=== PATIENT | male | born 1945 | race Caucasian/White ===

== ENCOUNTER 2021-06-23 20:25 | Inpatient (IN) | payer OTHER, SELFPAY ==
--- NOTE | ~2021-06-23 | XR_ITS ---
EXAMINATION: XR hip RT min 2V DATE: 06/25/2021 15:52 INDICATION: Right bipolar hip TECHNIQUE: Two views of right hip were obtained. COMPARISON: 06/23/2021 FINDINGS: There are changes of interval right hip arthroplasty in anatomic alignment. No fracture is identified. Surgical clips are noted in the right pelvis. IMPRESSION: 1. Changes of interval right hip arthroplasty. Reviewed, dictated and finalized at location F. CTOR FOOD AND BEVERAGE
--- NOTE | ~2021-06-23 | XR_ITS ---
EXAMINATION: XR hip RT 2V w AP pelvis INDICATION: Right hip pain after fall TECHNIQUE: AP view of the pelvis and two views of the right hip are obtained. COMPARISON: 04/20/2018 FINDINGS: There is an acute, traumatic, closed, subcapital fracture of right femoral neck. There are interval surgical changes of the left proximal femur. No additional acute fracture is identified. The re are surgical clips in the pelvis. Severe lumbar spondylosis noted. IMPRESSION: 1. Acute subcapital fracture of the right femoral neck. Reviewed, dictated and finalized at location F. P STRIPPER HAND
--- NOTE | ~2021-06-23 | XR_ITS ---
EXAMINATION: XR chest 1V INDICATION: Pain after fall TECHNIQUE: AP view the chest is obtained. COMPARISON: 05/02/2018 FINDINGS: The lungs are free of acute opacities. There is no pleural effusion or pneumothorax. The ca rdiomediastinal silhouette is normal. Surgical clips project over the left axilla. IMPRESSION: 1. No acute cardiopulmonary abnormality. Reviewed, dictated and finalized at location F. SUGAR OPERATOR HEAD
--- NOTE | ~2021-06-23 | CT_ITS ---
EXAMINATION: CT brain wo con INDICATION: Head injury COMPARISON: None TECHNIQUE: Standard unenhanced head CT. The dose-length product (DLP) was 605.33 mGy-cm. The mA was a djusted according to patient size. Iterative reconstruction technique was employed. FINDINGS: There is no acute intraparenchymal hemorrhage. No evidence of mass lesion. No evidence of a cute infarction. There is mild periventricular and subcortical hypodensity probably related to small vessel ischemic disease. There is mild prominence of the sulci and ventricles related to cerebral atr ophy. Intracranial calcified cerebral atherosclerosis is noted. There are no extra-axial collections. There is no mass effect or midline shift. The orbits and soft tissues are unremarkable. There is mod erate mucosal thickening of the paranasal sinuses. IMPRESSION: 1. No acute intracranial abnormality. 2. Age related findings. 3. Sinus disease. Reviewed, dictated and finalized at location F. R ENERGY SPECIALIST
[2021-06-23 20:21] VITALS: BP 151/86; PULSE 65; RESP 17; TEMP 36.8; O2SAT 95
--- NOTE | 2021-06-23 20:32 | PC.NURSE ---
Pt to XRAY via stretcher at this time.
--- NOTE | 2021-06-23 20:52 | ECG_ITS ---
Measurements Intervals Festus Rate: 61 P: 32 CO: 180 QRS: 8 QRSD: 97 T: 46 QT: 432 QTc: 436 Interpretive Statements SINUS RHYTHM INCOMPLETE RIGHT BUNDLE BRANCH BLOCK LOW QRS VOLTAGE IN PRECORDIAL LEADS BORDERLINE T WAVE ABNORMALITY- ANTERIOR LEADS BASELINE ARTIFACT- I, II, III, AVR, AVL, AVF, V1, V4-V6 BORDERLINE ECG Electronically Signed On 06-24-2021 8:43:50 MAPPING ANALYST by Dani Suarez D.O.
[2021-06-23 21:07] VITALS: BP 123/66; PULSE 63; RESP 18; O2SAT 93
[2021-06-23] MEDS: ONDANSETRON INJ 4 MG/2 ML VIAL IV PUSH (21:08)
[2021-06-23] MEDS: MORPHINE SULFATE (*CRX) 4 MG/ML INJ IV PUSH (21:08)
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
[2021-06-23 21:15] VITALS: O2SAT 86
--- NOTE | 2021-06-23 21:15 | PC.NURSE ---
Pt O2 decreased to 86% following Morphine IVP, placed on 2 L NC O2 and increased to 93%.
[2021-06-23 21:28] LABS: Basophils Percent Auto 0.4 % (0.2-1.2); Eosinophils Absolute Auto 0.4 K/mm3 (0-0.3); Eosinophils Percent Auto 3.9 % (0-4.4); Hematocrit 43.6 % (42.0-52.0); Hemoglobin 14.3 g/dL (14.0-18.0); Immature Granulocyte Absolute 0.05 K/mm3 (0.00-0.031); Immature Granulocyte Percent A 0.5 % (0-0.5); Immature Platelet Fraction Pct 8.1 % (0.9-11.2); Lymphocytes Absolute Auto 1.15 K/mm3 (0.9-3.2); Lymphocytes Percent Auto 12.2 % (18.3-44.2); Mean Corpuscular HGB Conc 32.8 g/dl (32-36); Mean Corpuscular Hemoglobin 31.1 pg (26-34); Mean Corpuscular Volume 94.8 fl (80-100); Mean Platelet Volume 11.3 fl (7.4-10.4); Monocytes Absolute Auto 0.9 K/mm3 (0.1-0.6); Monocytes Percent Auto 9.2 % (2.6-8.5); Neutrophils Absolute Auto 6.9 K/mm3 (1.3-6.7); Neutrophils Percent Auto 73.8 % (45.5-73.1); Platelet Count Result 100 k/mm3 (150-375); Red Cell Distribution Width 13.5 % (11.5-14.5); White Blood Count 9.4 K/mm3 (4.5-10.0)
[2021-06-23 21:37] LABS: INR 1.2
[2021-06-23 21:38] LABS: Partial Thromboplastin Time 30.3 SECONDS (22.3-36.8)
[2021-06-23 21:42] LABS: Alanine Aminotransferase 30 U/L (4-50); Albumin Level 3.7 g/dL (3.5-5.1); Alkaline Phosphatase 82 U/L (38-126); Anion Gap 8 mmol/L (8-16); Aspartate Amino Transferase 41 U/L (17-59); Bilirubin,Total 0.6 mg/dL (0.2-1.3); Blood Urea Nitrogen 22 mg/dL (9-20); Calcium 8.6 mg/dL (8.4-10.2); Carbon Dioxide 24 mmol/L (22-30); Chloride 101 mmol/L (98-107); Estimated CRCL calculation 63 ml/min; Estimated Glomerular Filt Rate > 60; Glucose 116 mg/dL (65-110); Potassium 4.3 mmol/L (3.4-5.0); Sodium 133 mmol/L (137-145)
--- NOTE | 2021-06-23 22:03 | PC.NURSE ---
Pt to CT scan via stretcher at this time.
[2021-06-23 22:20] LABS: Add Urine Microscopic? YES; Appearance Urine Cloudy (Clear); Bilirubin Urine Negative (Negative); Blood Urine Negative (Negative); Color Urine Yellow (Yellow); Glucose Urine UA Negative (Negative); Hyaline Casts Urine 15-19 /lpf; Ketones Urine Negative (Negative); Leukocyte Esterase Ur Negative LEU/UL (Negative); Mucus Urine Moderate /lpf; Nitrate Urine Negative (Negative); Protein Urine Negative (Negative); Specific Grav Ur 1.026 (1.001-1.035); Squamous Epithelial Cell Urine Many /hpf (Few)
[2021-06-23 22:58] VITALS: PULSE 62; RESP 15; O2SAT 95
[2021-06-23 23:08] LABS: EDCOVIDSCREEN Negative (Negative)
--- NOTE | 2021-06-23 23:35 | PC.NURSE ---
Records [facility] to [facility] per [facility].
[2021-06-23 23:37] VITALS: BP 105/64; PULSE 67; RESP 15; O2SAT 93
[2021-06-24] VITALS (8 sets, daily range): BP systolic 106–141; BP diastolic 49–68; PULSE 64–100; RESP 14–20; TEMP 36.1–36.4; O2SAT 90–95; BMI 27.0
[2021-06-24] MEDS: HYDROmorphone HCL INJ (*CRX) 1 MG/ML SYR 0.5 MG IV PUSH ×3 (00:20→08:47)
[2021-06-24] MEDS: SODIUM CHLORIDE 0.9% IV 1,000 ML 125 ML IV CONT ×3 (01:32→19:05)
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
--- NOTE | 2021-06-24 04:45 | ADMGEN ---
This patient, Alex Fish, was admitted to Medical Room 346-01. Patient/family oriented to hospital policies and general routines including ID bracelet, bed and alarms, visiting hours, pain management, procedures, bathroom and other care routines, personal items, smoking policy, room service/diet, and visiting hours. Information on how to activate the Rapid Response Team has been discussed. Patient/Family are encouraged to report perceived risks to care and to ask questions if they do not understand what they are told or what they should do.
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
[2021-06-24] MEDS: KETOROLAC 15 MG/ML VIAL (*BKC) IV PUSH (12:55)
[2021-06-24] MEDS: HYDROcodone/acetaminophen (*CRX) 5-325 MG TABLET 1 TAB PO ×2 (14:27→21:22)
[2021-06-24] MEDS: AZELASTINE HCL NASAL 0.1% 137 MCG/SPR 30 ML BTL 2 SPRAY NASAL (17:55)
[2021-06-24] MEDS: HYDROmorphone HCL INJ (*CRX) 1 MG/ML SYR IV PUSH (18:02)
--- NOTE | 2021-06-24 19:10 | PM.CNOR ---
Assessment and Plan Additional Plan Right garden 4 femoral neck fx NPO after [place] will proceed with hemiarthroplasty Pt is aware of all risks, benefits and alternative treatments and wishes to proceed with surgery. History of Present Illness HPI Consult date: 06/24/21 Chief complaint: right closed subcapital femoral neck fracture Narrative: 76 yo with left BKA now s/p fall and right garden 4 femoral neck fx. [facility] Past Medical History Medical History (Updated 06/24/21 @ 04:26 by Reyes Costa MD) Cirrhosis Hepatitis C Surgical History Surgical History (Updated 06/23/21 @ 21:17 by Dee Burns MD) Hx of tonsillectomy Family History Family History (Updated 06/24/21 @ 05:01 by Erwin Arias RN) Father Diabetes mellitus Mother Family history of cardiovascular disease Sibling Family history of malignant neoplasm of urinary bladder Social History Social History (Updated 06/23/21 @ 21:17 by Dee Burns MD) Smoking packs per day: 1 Smoking cigarettes per day: 20.0 Smoking status: Former smoker Alcohol intake: never Alcohol use details: former heavy drinker but stopped years ago Substance use: never Spiritual care concerns: No Meds Home Medications and Allergies Home Medications Medication Instructions Recorded Confirmed Type Allergy Relief (fluticasone) 2 spray EACH NARE DAILY 06/24/21 06/24/21 History Arthritis Pain (diclofenac) 2 g QID 06/24/21 06/24/21 History aripiprazole 30 mg PO DAILY 06/24/21 06/24/21 History azelastine 2 spray INTRANASAL BID 06/24/21 06/24/21 History cholecalciferol (vitamin D3) 50 mcg PO DAILY 06/24/21 06/24/21 History docusate sodium 1 cap PO BID 06/24/21 06/24/21 History donepezil 10 mg PO HS 06/24/21 06/24/21 History escitalopram oxalate 20 mg PO DAILY 06/24/21 06/24/21 History furosemide 40 mg PO DAILY 06/24/21 06/24/21 History ipratropium bromide 1 spray EACH NARE TID PRN 06/24/21 06/24/21 History lactulose 30 ml PO BID 06/24/21 06/24/21 History loperamide 2 mg PO BID PRN 06/24/21 06/24/21 History melatonin 3 mg PO HS 06/24/21 06/24/21 History mirabegron 25 mg PO DAILY 06/24/21 06/24/21 History propranolol 60 mg PO DAILY 06/24/21 06/24/21 History spironolactone 50 mg PO DAILY 06/24/21 06/24/21 History Allergies Allergy/AdvReac Type Severity Reaction Status Date / Time Sulfa (Sulfonamide Allergy Unknown Verified 07/06/18 11:10 Antibiotics) Vital Signs Vital Signs - 24 hr 06/23/21 20:21 06/23/21 21:07 06/23/21 21:15 Temperature 36.8 C Pulse Rate 65 63 Respiratory Rate 17 18 Blood Pressure 151/86 H 123/66 Pulse Oximetry 95 93 86 L 06/23/21 22:58 06/23/21 23:37 06/24/21 00:20 Temperature Pulse Rate 62 67 67 Respiratory Rate 15 15 17 Blood Pressure 105/64 115/65 Pulse Oximetry 95 93 93 06/24/21 01:32 06/24/21 02:27 06/24/21 04:15 Temperature Pulse Rate 67 66 64 Respiratory Rate 14 17 15 Blood Pressure 106/66 110/63 115/68 Pulse Oximetry 91 90 95 06/24/21 14:50 06/24/21 15:01 Temperature 36.4 C Pulse Rate 75 Respiratory Rate 20 Blood Pressure 115/49 L Pulse Oximetry 91 92 Exam Extrem: Other: Right Hip no bruising noted thigh supple and min tender tender over gr troch. log roll painful NV intact distally Calves NT on right, BKA stump on left Results Labs Result Diagrams: 06/23/21 21:17 06/23/21 21:17 Labs: Abnormal lab results 06/23/21 06/23/21 06/23/21 Range/Units 21:17 21:17 21:17 Plt Count 100 L (150-375) k/mm3 MPV 11.3 H (7.4-10.4) fl Neut % (Auto) 73.8 H (45.5-73.1) % Lymph % (Auto) 12.2 L (18.3-44.2) % Zavala % (Auto) 9.2 H (2.6-8.5) % Z[place]ala # (Auto) 0.9 H (0.1-0.6) K/mm3 Eos # (Auto) 0.4 H (0-0.3) K/mm3 Abs Immat Gran (auto) 0.05 H (0.00-0.031) K/mm3 Absolute Neuts (auto) 6.9 H (1.3-6.7) K/mm3 PT 15.0 H (11.1-14.7) Seconds Sodium 133 L (137-145) mmol/L BUN 22 H
[2021-06-24] MEDS: MELATONIN 3 MG TABLET PO (21:19)
[2021-06-24] MEDS: DOCUSATE SODIUM 100 MG CAPSULE PO (21:20)
[2021-06-24] MEDS: DONEPEZIL HCL 10 MG TABLET PO (21:20)
[2021-06-25] VITALS (14 sets, daily range): BP systolic 111–151; BP diastolic 52–74; PULSE 67–87; RESP 14–20; TEMP 36.3–36.8; O2SAT 90–97
[2021-06-25] MEDS: HYDROmorphone HCL INJ (*CRX) 1 MG/ML SYR IV PUSH ×4 (00:52→21:39)
[2021-06-25] MEDS: SODIUM CHLORIDE 0.9% IV 1,000 ML 125 ML IV CONT ×2 (05:13→17:48)
[2021-06-25 06:39] LABS: Basophils Percent Auto 0.3 % (0.2-1.2); Eosinophils Absolute Auto 0.7 K/mm3 (0-0.3); Eosinophils Percent Auto 5.8 % (0-4.4); Hematocrit 44.2 % (42.0-52.0); Immature Granulocyte Absolute 0.05 K/mm3 (0.00-0.031); Immature Granulocyte Percent A 0.4 % (0-0.5); Immature Platelet Fraction Pct 7.1 % (0.9-11.2); Lymphocytes Absolute Auto 1.12 K/mm3 (0.9-3.2); Lymphocytes Percent Auto 9.6 % (18.3-44.2); Mean Corpuscular HGB Conc 31.7 g/dl (32-36); Mean Corpuscular Volume 97.8 fl (80-100); Mean Platelet Volume 11.4 fl (7.4-10.4); Monocytes Percent Auto 8.2 % (2.6-8.5); Neutrophils Absolute Auto 8.8 K/mm3 (1.3-6.7); Neutrophils Percent Auto 75.7 % (45.5-73.1); Platelet Count Result 75 k/mm3 (150-375); Red Blood Count 4.52 M/mm3 (4.6-6.20); Red Cell Distribution Width 13.7 % (11.5-14.5); White Blood Count 11.6 K/mm3 (4.5-10.0)
[2021-06-25 06:59] LABS: Alanine Aminotransferase 24 U/L (4-50); Albumin Level 3.5 g/dL (3.5-5.1); Alkaline Phosphatase 80 U/L (38-126); Anion Gap 8 mmol/L (8-16); Aspartate Amino Transferase 38 U/L (17-59); Bilirubin,Total 1.3 mg/dL (0.2-1.3); Blood Urea Nitrogen 23 mg/dL (9-20); Calcium 8.1 mg/dL (8.4-10.2); Carbon Dioxide 21 mmol/L (22-30); Chloride 104 mmol/L (98-107); Estimated CRCL calculation 63 ml/min; Estimated Glomerular Filt Rate > 60; Glucose 119 mg/dL (65-110); Potassium 4.5 mmol/L (3.4-5.0); Sodium 133 mmol/L (137-145)
[2021-06-25] MEDS: ESCITALOPRAM OXALATE 10 MG TABLET 20 MG PO (08:10)
[2021-06-25] MEDS: PROPRANOLOL HCL 60 MG CAPSULE CR PO (08:10)
[2021-06-25] MEDS: ARIPiprazole 5 MG TABLET 15 MG PO (08:10)
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
--- NOTE | 2021-06-25 09:18 | WPDANESEPPF ---
Anes - Initial Pre Proc Eval Procedure: Operation Date: 06/25/21 13:00 Proposed Procedures p Right Hip Hemiarthroplasty - Jeremie Link MD Date/Time: 06/25/21 09:18 Surgeon: Reyes Costa MD Pre Op Diagnosis: right closed subcapital femoral neck fracture Patient Data Age: 76 Gender: M Height: 1.83 m Weight: 90.5 kg Last Vital Signs Temp 36.6 C 06/25/21 05:29 Pulse 83 06/25/21 05:29 Resp 20 06/25/21 05:29 BP 125/60 06/25/21 05:29 Pulse Ox 95 06/25/21 08:00 Allergies Allergy/AdvReac Type Severity Reaction Status Date / Time Sulfa (Sulfonamide Allergy Unknown Verified 07/06/18 11:10 Antibiotics) Home Medications Medication Instructions Recorded Confirmed Type Allergy Relief (fluticasone) 2 spray EACH NARE DAILY 06/24/21 06/24/21 History Arthritis Pain (diclofenac) 2 g QID 06/24/21 06/24/21 History aripiprazole 30 mg PO DAILY 06/24/21 06/24/21 History azelastine 2 spray INTRANASAL BID 06/24/21 06/24/21 History cholecalciferol (vitamin D3) 50 mcg PO DAILY 06/24/21 06/24/21 History docusate sodium 1 cap PO BID 06/24/21 06/24/21 History donepezil 10 mg PO HS 06/24/21 06/24/21 History escitalopram oxalate 20 mg PO DAILY 06/24/21 06/24/21 History furosemide 40 mg PO DAILY 06/24/21 06/24/21 History ipratropium bromide 1 spray EACH NARE TID PRN 06/24/21 06/24/21 History lactulose 30 ml PO BID 06/24/21 06/24/21 History loperamide 2 mg PO BID PRN 06/24/21 06/24/21 History melatonin 3 mg PO HS 06/24/21 06/24/21 History mirabegron 25 mg PO DAILY 06/24/21 06/24/21 History propranolol 60 mg PO DAILY 06/24/21 06/24/21 History spironolactone 50 mg PO DAILY 06/24/21 06/24/21 History Laboratory Tests 06/25/21 06/25/21 06:05 06:05 WBC 11.6 K/mm3 H K/mm3 (4.5-10.0) RBC 4.52 M/mm3 L M/mm3 (4.6-6.20) Hgb 14.0 g/dL g/dL (14.0-18.0) Hct 44.2 % % (42.0-52.0) MCV 97.8 fl fl (80-100) MCH 31.0 pg pg (26-34) MCHC 31.7 g/dl L g/dl (32-36) RDW 13.7 % % (11.5-14.5) Plt Count 75 k/mm3 L k/mm3 (150-375) MPV 11.4 fl H fl (7.4-10.4) Immature Gran % (Auto) 0.4 % % (0-0.5) Neut % (Auto) 75.7 % H % (45.5-73.1) Lymph % (Auto) 9.6 % L % (18.3-44.2) [place] % (Auto) 8.2 % % (2.6-8.5) Eos % (Auto) 5.8 % H % (0-4.4) Baso % (Auto) 0.3 % % (0.2-1.2) Lymph # (Auto) 1.12 K/mm3 K/mm3 (0.9-3.2) [place] # (Auto) 1.0 K/mm3 H K/mm3 (0.1-0.6) Eos # (Auto) 0.7 K/mm3 H K/mm3 (0-0.3) Baso # (Auto) 0.0 K/mm3 K/mm3 (0.0-0.1) Abs Immat Gran (auto) 0.05 K/mm3 H K/mm3 (0.00-0.031) Absolute Neuts (auto) 8.8 K/mm3 H K/mm3 (1.3-6.7) Absolute Nucleated RBC 0.0 K/mm3 K/mm3 (0.0-0.012) Nucleated RBC % 0.0 % % (0.0-0.2) % Immature Plt Fraction 7.1 % % (0.9-11.2) Sodium 133 mmol/L L mmol/L (137-145) Potassium 4.5 mmol/L mmol/L (3.4-5.0) Chloride 104 mmol/L mmol/L (98-107) Carbon Dioxide 21 mmol/L L mmol/L (22-30) Anion Gap 8 mmol/L mmol/L (8-16) BUN 23 mg/dL H mg/dL (9-20) Creatinine 1.00 mg/dL mg/dL (0.7-1.3) Estim Creat Clear Calc 63 ml/min ml/min Estimated GFR > 60 (59 - ) Glucose 119 mg/dL H mg/dL (65-110) Calcium 8.1 mg/dL L mg/dL (8.4-10.2) Total Bilirubin 1.3 mg/dL mg/dL (0.2-1.3) AST 38 U/L U/L (17-59) ALT 24 U/L U/L (4-50) Alkaline Phosphatase 80 U/L U/L (38-126) Total Protein 6.0 g/dL L g/dL (6.3-8.2) Albumin 3.5 g/dL g/dL (3.5-5.1) Patient hx anesthesia problems: none Family hx anesthesia problems: none Results Review: All pre-operative results and documents have been reviewed as part of the pre-operative evaluation. [facility] Past Medical History Medical History (Updated 06/25/21 @ 09:19 by Ulises Chaves DO) Acute respiratory failure Cirrhosis Hep
[2021-06-25] MEDS: LACTATED RINGERS 1,000 ML 30 ML IV CONT (11:51)
[2021-06-25] MEDS: TRANEXAMIC ACID 1,000MG/ISO100 1,000 MG/100 ML BAG 200 MG IVPB (11:51)
--- NOTE | 2021-06-25 12:47 | WPDHPUPDATE1 ---
History and Physical Update Update Date/Time: 06/25/21 12:47 History and Physical has been reviewed, including an updated exam of the patient. There are NO changes in the patient's condition. Risks, benefits, and alternatives have been discussed and questions answered. Patient agrees to proceed with procedure.
[2021-06-25] MEDS: ceFAZolin 2 GM/D5W 50 ML 2 GM/50 ML BAG IVPB (13:40)
--- NOTE | 2021-06-25 15:26 | W.PM.PROC2 ---
Procedure Note - Detailed Date of Procedure 06/25/21 Pre-op Diagnosis right closed subcapital femoral neck fracture Post-op Diagnosis same Procedure Performed Right hip hemiarthroplasty Surgeon Jeremie Link MD Concession Stand Attendant Paul Anesthesia general Description of Procedure The patient was identified and brought to the operating room. General anesthesia was induced. Patient was positioned into the left lateral decubitus which presented the right broken hip to the surgeon. Care was taken to pad all the bony prominences. An axillary roll was utilized. Once the patient positioned was checked we proceeded with sterile prep and drape. Once this was accomplished the anatomical landmarks were identified the greater trochanter was drawn on the femur. A curvilinear incision from the posterior superior iliac spine around the posterior 1/3 of the greater trochanter and then down the line of the femoral shaft was made. This was about 15 cm in length. This was taken sharply through the skin and subcutaneous tissues down to the level of the fascia dougie. The fascia dougie was incised and I was able to palpate the gluteus alfonso posteriorly. We then opened the fascia dougie distally and the superior fascia of the gluteus proximally. Then split the gluteus and a Charnley C retractor was placed. Care was taken to protect the sciatic nerve posteriorly. The external rotators were then noted and the abductor tendons were bluntly dissected off the capsule. A Cobra retractor was used to retract these tendons. The piriformis was then identified and this was removed from the piriformis fossa with Bovie electrocautery. The capsule was then T'd and each leaflet of the capsule was tagged with tag sutures. The quadratus femoris was removed in its upper 1/3 great care was taken to use Bovie electrocautery as this area can have some bleeding. The femoral head and neck was then appropriately exposed. The head was positioned so as to allow the insertion of a corkscrew. Once this was seated in the femoral head was removed from the acetabulum. Bovie electrocautery was used to coagulate the ligamentum teres. The acetabulum was then cleaned of any extraneous tissues. The head measured 52 mm. The femoral neck was then cut. The femoral neck guide was used and then a saw was used. An excellent cut was achieved. The acetabulum was sized and the 52 mm trial hip ball fit the most appropriate. The femoral shaft and canal were then determined with the [place]. And then the T-handled canal finer was utilized. I then sequentially broached in about 15-20 degrees of anteversion up to a number 8 implant. Trial reduction was then done with the 0 neck length in the 52 mm head. The leg lengths were equal. The hip was taken past 90?. Push-pull was negative. The hip was then the deducted to about 45-50 degrees. Internal rotation to about 40? was able before the hip even started to sublux posteriorly. This was found to be excellent stability. We decided on the number 5 implant. Then this was placed. Trial reduction was done and the stability was good. The 0 neck length and a 46 mm endoprosthesis for chosen and placed. This was found to be equally stable as the trials. The wounds were then copiously irrigated. The capsule was closed with 2. Ethibond in a running locking stitch. Drill hole made in the posterior greater trochanter and the capsular stitches and the piriformis tendon were brought it through the drill holes back into their nascent position on the posterior greater trochanter. The wound was copiously irrigated again and #2 Ethibond was used to close the fascia dougie in a [id number]-[id number] fashion. A # 2 ethibond was used to close the gluteus alfonso tendon. 2-0 Vicryl was used to close the subcutaneous tissues. A 3-0 Quill was used for the skin in a subcuticular fashion. Surgical glue was utilized to close the skin. A number Mepilex silver impregnated dressing was applied. Patient
--- NOTE | 2021-06-25 16:19 | SUR.PHASEI ---
Simple mask removed at 1619. 4L NC applied.
--- NOTE | 2021-06-25 16:42 | SUR.PHASEI ---
Patient is very drowsy still. RN is just giving it more time before transferring patient to room.
[2021-06-25] MEDS: HYDROcodone/acetaminophen (*CRX) 5-325 MG TABLET 1 TAB PO (19:33)
[2021-06-25] MEDS: SENNA/DOCUSATE SODIUM TABLET 2 TAB PO (21:27)
[2021-06-25] MEDS: LACTULOSE 20 GM/30 ML UDC PO (21:27)
[2021-06-25] MEDS: DONEPEZIL HCL 10 MG TABLET PO (21:28)
[2021-06-25] MEDS: MELATONIN 3 MG TABLET PO (21:28)
[2021-06-26] VITALS (7 sets, daily range): BP systolic 100–137; BP diastolic 53–71; PULSE 67–78; RESP 14–20; TEMP 36.6–37.1; O2SAT 91–98; BMI 10.0
[2021-06-26] MEDS: HYDROmorphone HCL INJ (*CRX) 1 MG/ML SYR IV PUSH ×4 (01:28→23:36)
[2021-06-26] MEDS: SODIUM CHLORIDE 0.9% IV 1,000 ML 125 ML IV CONT ×2 (03:01→11:37)
[2021-06-26 08:41] LABS: Anion Gap 6 mmol/L (8-16); Blood Urea Nitrogen 29 mg/dL (9-20); Calcium 8.1 mg/dL (8.4-10.2); Carbon Dioxide 22 mmol/L (22-30); Chloride 105 mmol/L (98-107); Estimated CRCL calculation 69 ml/min; Estimated Glomerular Filt Rate > 60; Glucose 136 mg/dL (65-110); Potassium 4.9 mmol/L (3.4-5.0); Sodium 133 mmol/L (137-145)
[2021-06-26 08:50] LABS: Basophils Percent Auto 0.1 % (0.2-1.2); Eosinophils Percent Auto 0.1 % (0-4.4); Hematocrit 39.5 % (42.0-52.0); Hemoglobin 12.6 g/dL (14.0-18.0); Immature Granulocyte Absolute 0.04 K/mm3 (0.00-0.031); Immature Granulocyte Percent A 0.4 % (0-0.5); Immature Platelet Fraction Pct 9.2 % (0.9-11.2); Lymphocytes Absolute Auto 0.73 K/mm3 (0.9-3.2); Lymphocytes Percent Auto 6.6 % (18.3-44.2); Mean Corpuscular HGB Conc 31.9 g/dl (32-36); Mean Corpuscular Hemoglobin 31.4 pg (26-34); Mean Corpuscular Volume 98.5 fl (80-100); Mean Platelet Volume 11.8 fl (7.4-10.4); Monocytes Absolute Auto 1.3 K/mm3 (0.1-0.6); Monocytes Percent Auto 11.7 % (2.6-8.5); Neutrophils Percent Auto 81.1 % (45.5-73.1); Platelet Count Result 67 k/mm3 (150-375); Red Blood Count 4.01 M/mm3 (4.6-6.20); Red Cell Distribution Width 13.3 % (11.5-14.5); White Blood Count 11.1 K/mm3 (4.5-10.0)
[2021-06-26] MEDS: HYDROcodone/acetaminophen (*CRX) 5-325 MG TABLET 1 TAB PO (10:03)
[2021-06-26] MEDS: SENNA/DOCUSATE SODIUM TABLET 2 TAB PO ×2 (10:03→17:37)
[2021-06-26] MEDS: ESCITALOPRAM OXALATE 10 MG TABLET 20 MG PO (10:04)
[2021-06-26] MEDS: CHOLECALCIFEROL 1,000 UNITS TABLET 2000 UNITS PO (10:04)
[2021-06-26] MEDS: DOCUSATE SODIUM 100 MG CAPSULE PO ×2 (10:04→21:00)
[2021-06-26] MEDS: MIRABEGRON 25 MG ER TABLET PO (10:05)
[2021-06-26] MEDS: FUROSEMIDE 40 MG TABLET PO (10:05)
[2021-06-26] MEDS: SPIRONOLACTONE 50 MG TABLET PO (10:06)
--- NOTE | 2021-06-26 10:43 | PM.PNORT ---
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 Subjective Subjective Date/Time Seen: 06/26/21 10:43 Post Op day: 1 Principal diagnosis: right hip hemiarthroplasty LEft remote BKA Exam Extrem: Other: POD #1 NV iintact distally Dressing C+D Calves are NT bilat thigh supple and NT Objective Data Vital Signs Vital Signs: Vital Signs - 24 hr 06/25/21 12:00 06/25/21 15:35 06/25/21 15:43 Temperature 36.8 C 36.3 C L Pulse Rate 87 68 71 Respiratory Rate 16 16 14 Blood Pressure 151/74 H 122/52 L 114/58 L Pulse Oximetry 95 94 94 06/25/21 15:50 06/25/21 16:05 06/25/21 16:20 Temperature Pulse Rate 69 70 71 Respiratory Rate 15 14 14 Blood Pressure 135/65 129/65 111/59 L Pulse Oximetry 97 97 95 06/25/21 16:50 06/25/21 17:15 06/25/21 17:30 Temperature Pulse Rate 69 70 67 Respiratory Rate 14 16 18 Blood Pressure 117/60 123/72 131/68 Pulse Oximetry 90 92 96 06/25/21 18:00 06/25/21 19:00 06/25/21 20:00 Temperature Pulse Rate 70 70 72 Respiratory Rate 18 20 20 Blood Pressure 119/72 116/70 114/65 Pulse Oximetry 95 96 96 06/26/21 00:05 06/26/21 06:08 06/26/21 08:00 Temperature Pulse Rate 67 78 Respiratory Rate 20 20 Blood Pressure 125/69 126/64 Pulse Oximetry 98 95 06/26/21 10:15 Temperature 36.6 C Pulse Rate 74 Respiratory Rate 16 Blood Pressure 137/71 Pulse Oximetry 91 Intake/Output Intake/Output: Intake & Output 06/23/21 06/24/21 06/25/21 06/26/21 23:59 23:59 23:59 23:59 Intake Total 100 2340 2600 1100 Output Total 200 400 900 600 Balance -100 1940 1700 500 Meds/Results Medications: Active Medications Generic Name Dose Route Start Last Admin Trade Name Freq PRN Reason Stop Dose Admin Hydrocodone Bitart/Acetaminophen 1 tab 06/24/21 12:21 06/26/21 10:03 Hydrocodone/Acetaminophen (*Crx) 5-325 Mg Tablet PO 1 tab Q6H PRN Administration Pain Rated 4-6 Azelastine HCl 2 spray 06/24/21 17:00 06/26/21 10:30 Azelastine Hcl Nasal 0.1% 137 Mcg/Spr 30 Ml Btl NASAL Not Given BID REMINGTON Docusate Sodium 100 mg 06/24/21 21:00 06/26/21 10:04 Docusate Sodium 100 Mg Capsule PO 100 mg Q12HR REMINGTON Administration Donepezil HCl 10 mg 06/24/21 21:00 06/25/21 21:28 Donepezil Hcl 10 Mg Tablet PO 07/24/21 20:59 10 mg HS REMINGTON Administration Escitalopram Oxalate 20 mg 06/25/21 09:00 06/26/21 10:04 Escitalopram Oxalate 10 Mg Tablet PO 07/25/21 08:59 20 mg DAILY REMINGTON Administration Furosemide 40 mg 06/25/21 09:00 06/26/21 10:05 Furosemide 40 Mg Tablet PO 40 mg DAILY REMINGTON Administration Hydromorphone HCl 1 mg 06/24/21 12:22 06/26/21 06:05 Hydromorphone Hcl Inj (*Crx) 1 Mg/Ml Syr IV PUSH 1 mg Q3H PRN Administration Pain Rated 7-10 Sodium Chloride 1,000 mls @ 125 mls/hr 06/24/21 00:40 06/26/21 03:01 Normal Saline Iv IV CONT 125 mls/hr .Q8H REMINGTON Administration Lactulose 20 gm 06/24/21 17:00 06/26/21 10:30 Lactulose 20 Gm/30 Ml Udc PO Not Given BID REMINGTON Loperamide HCl 2 mg 06/24/21 16:44 Loperamide Hcl 2 Mg Capsule PO BID PRN Diarrhea Melatonin 3 mg 06/24/21 21:00 06/25/21 21:28 Melatonin 3 Mg Tablet PO 3 mg HS REMINGTON Administration Mirabegron 25 mg 06/25/21 09:00 06/26/21 10:05 Mirabegron 25 Mg Er Tablet PO 25 mg DAILY REMINGTON Administration Naloxone HCl 0.1 mg 06/25/21 13:18 Naloxone Hcl 0.4 Mg/Ml Vial IV PUSH Q2M PRN Opiate Reversal Ondansetron HCl 4 mg 06/24/21 00:36 Ondansetron Inj 4 Mg/2 Ml Vial IV PUSH Q4H PRN Nausea Polyethylene Glycol 17 gm 06/26/21 09:00 06/26/21 10:07 Polyethylene Glycol 3350 17 Gm Powd.Pack PO Not Given QAM REMINGTON Senna/Docusate Sodium 2 tab 06/25/21 17:00 06/26/21 10:03 Senna/Docusate Sodium Tablet PO 2 tab BID REMINGTON Administration Spironolactone 50 mg 06/25/21 09
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
[2021-06-26] MEDS: DONEPEZIL HCL 10 MG TABLET PO (21:00)
[2021-06-26] MEDS: MELATONIN 3 MG TABLET PO (21:00)
[2021-06-27 00:05] VITALS: BP 113/60; PULSE 70; RESP 20; O2SAT 96
[2021-06-27 06:41] VITALS: RESP 20
[2021-06-27 08:00] VITALS: O2SAT 92
[2021-06-27 08:40] LABS: Basophils Percent Auto 0.1 % (0.2-1.2); Eosinophils Absolute Auto 0.4 K/mm3 (0-0.3); Eosinophils Percent Auto 4.1 % (0-4.4); Hematocrit 36.8 % (42.0-52.0); Hemoglobin 11.8 g/dL (14.0-18.0); Immature Granulocyte Absolute 0.05 K/mm3 (0.00-0.031); Immature Granulocyte Percent A 0.5 % (0-0.5); Immature Platelet Fraction Pct 6.9 % (0.9-11.2); Lymphocytes Absolute Auto 0.93 K/mm3 (0.9-3.2); Lymphocytes Percent Auto 9.6 % (18.3-44.2); Mean Corpuscular HGB Conc 32.1 g/dl (32-36); Mean Corpuscular Hemoglobin 30.7 pg (26-34); Mean Corpuscular Volume 95.8 fl (80-100); Mean Platelet Volume 12.1 fl (7.4-10.4); Monocytes Absolute Auto 1.3 K/mm3 (0.1-0.6); Monocytes Percent Auto 13.7 % (2.6-8.5); Neutrophils Absolute Auto 6.9 K/mm3 (1.3-6.7); Platelet Count Result 73 k/mm3 (150-375); Red Blood Count 3.84 M/mm3 (4.6-6.20); Red Cell Distribution Width 13.4 % (11.5-14.5); White Blood Count 9.6 K/mm3 (4.5-10.0)
[2021-06-27 08:42] LABS: Alanine Aminotransferase 20 U/L (4-50); Albumin Level 3.1 g/dL (3.5-5.1); Alkaline Phosphatase 70 U/L (38-126); Anion Gap 5 mmol/L (8-16); Aspartate Amino Transferase 42 U/L (17-59); Bilirubin,Total 1.9 mg/dL (0.2-1.3); Blood Urea Nitrogen 26 mg/dL (9-20); Calcium 8.4 mg/dL (8.4-10.2); Carbon Dioxide 28 mmol/L (22-30); Chloride 104 mmol/L (98-107); Estimated CRCL calculation 88 ml/min; Estimated Glomerular Filt Rate > 60; Glucose 114 mg/dL (65-110); Magnesium 2.2 mg/dL (1.6-2.3); Potassium 4.4 mmol/L (3.4-5.0); Sodium 137 mmol/L (137-145)
[2021-06-27 09:33] LABS: Creatinine Urine 115.8 mg/dL; Urea Random Urine 1350 MG/DL
[2021-06-27 09:38] LABS: Sodium Urine Random 67 meq/L
[2021-06-27] MEDS: SODIUM CHLORIDE 500 MG TABLET PO (09:55)
[2021-06-27] MEDS: CHOLECALCIFEROL 1,000 UNITS TABLET 2000 UNITS PO (09:55)
[2021-06-27] MEDS: ESCITALOPRAM OXALATE 10 MG TABLET 20 MG PO (09:55)
[2021-06-27] MEDS: LACTULOSE 20 GM/30 ML UDC PO ×2 (09:56→17:28)
[2021-06-27] MEDS: MIRABEGRON 25 MG ER TABLET PO (09:56)
[2021-06-27] MEDS: FUROSEMIDE 40 MG TABLET PO (09:56)
[2021-06-27] MEDS: SPIRONOLACTONE 50 MG TABLET PO (09:57)
[2021-06-27] MEDS: HYDROmorphone HCL INJ (*CRX) 1 MG/ML SYR IV PUSH (09:59)
[2021-06-27 10:00] VITALS: BP 147/70; PULSE 81; RESP 20; TEMP 37.4; O2SAT 99
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
[2021-06-27 10:40] VITALS: O2SAT 90
--- NOTE | 2021-06-27 12:26 | PC.NURSE ---
Patient is urinating on own so no need to straight at 1300 like worklist said to.
--- NOTE | 2021-06-27 12:44 | PC.NURSE ---
When Hospitalist rounded this AM he turned off 4L NC and put patient on room air. PT was working with patient and checked patient's O2. Patient was sating at 83% RA. RN applied 2L NC at that time.
[2021-06-27 12:47] LABS: Iron 46 ug/dL (49-181)
[2021-06-27 12:58] LABS: Percent Iron Saturation 20 % (20-50)
[2021-06-27 13:22] LABS: Transferrin 152 mg/dL (206-381)
--- NOTE | 2021-06-27 13:39 | PC.NURSE ---
Patient is still very drowsy/lethargic after getting 1mg dilaudid about 1000 this morning.
[2021-06-27 14:12] LABS: Folic Acid 5.4 ng/mL (2.76->20)
--- NOTE | 2021-06-27 15:45 | PC.NURSE ---
Called and gave report to Lizz at [facility].
[2021-06-27 16:00] VITALS: BP 157/77; PULSE 84; RESP 18; TEMP 37.6; O2SAT 95
[2021-06-27] MEDS: SENNA/DOCUSATE SODIUM TABLET 2 TAB PO (17:25)
--- NOTE | 2021-06-27 18:21 | PC.NURSE ---
NURSING MANAGER TERMINAL HELPED ME TO CHANGE THE PATIENT'S DIAPER AND LINEN AFTER A LOOSE STOOL. STILL AWAITING AMBULANCE.
--- NOTE | 2021-06-27 18:54 | PC.NURSE ---
AMBULANCE ARRIVED AND ASSISTED CHANGING PATIENT'S DIAPER AND LINEN AFTER ANOTHER LOOSE BM. ALL BELONGINGS INCLUDING PATIENT'S CELL PHONE AND PROSTHETIC LEG WITH PATIENT. [facility] NOTIFIED RE: PATIENT EN ROUTE. NURSING SHEET WRITER CALLED TO UPDATE HER.
--- NOTE | 2021-06-27 19:01 | PC.NURSE ---
SISTER DEBORAH CALLED TO UPATE HER RE: GENE'S TRANSFER.
[2021-07-01 19:19] LABS: Osmolality, Urine 811 mOsm/kg (50-1200)
== END 2021-06-27 19:00 | DRG 522 ==
LOC: ANHED 06-24 00:39 → ANH3MEDSUR 06-24 02:39 → ANH3MED 06-24 03:45 → ANHSUROVER 06-26 07:25 → ANH3MEDSUR 07-14 14:08
PROVIDERS: Nurse Practitioner; Specialist; Admitting Provider Internal Medicine; Emergency Provider General Practice; Visit Provider Internal Medicine
PROC: 0SRR0JZ Replacement of Right Hip Joint, Femoral Surface with Synthetic Substitute, Open Approach (ICD-10-PCS; CPT 27125; principal; 2021-06-25 13:00)
DX: S72.011A Unspecified intracapsular fracture of right femur, initial encounter for closed fracture (principal); W19.XXXA Unspecified fall, initial encounter; Z20.822 Contact with and (suspected) exposure to COVID-19; K74.60 Unspecified cirrhosis of liver; B19.20 Unspecified viral hepatitis C without hepatic coma; D69.6 Thrombocytopenia, unspecified; V29.9XXS Motorcycle rider (driver) (passenger) injured in unspecified traffic accident, sequela; Z89.512 Acquired absence of left leg below knee
CPT/HCPCS: 36415; 51701; 70450; 71045; 73502; 80048; 80053; 81001; 82570; 82607; 82728; 82746; 83540; 83550; 83735; 83930; 83935; 84300; 84466; 84540; 85025; 85055; 85610; 85730; 86850; 86900; 86901; 87426; 93005; 96361; 96365; 96375; 96376; 97110; 97162; 97166; 97530; 97535; 99285; A9270; C1776; C9803; G0378; J0131; J0171; J0330; J0690; J1100; J1170; J1885; J2250; J2270; J2370; J2405; J2704; J2795; J3010; J7030; J7120

== ENCOUNTER 2021-07-06 21:21 | Inpatient (IN) | payer OTHER, SELFPAY ==
[2021-07-06] VITALS (19 sets, daily range): BP systolic 115–145; BP diastolic 53–69; PULSE 79–86; RESP 16–34; TEMP 36.3–36.7; O2SAT 91–100
--- NOTE | ~2021-07-06 | XR_ITS ---
EXAMINATION: XR chest PICC line EXAM DATE: 07/22/2021 14:37 INDICATION: PICC placement . TECHNIQUE: Portable AP frontal chest x-ray was obtained. Comparison is made to prior examination from 07/21/2021. FINDINGS: There is a right-sided PICC line with tip projecting over the cavoatrial junction. Diffuse bilateral airspace disease. No pneumothorax or sizable pleural effusion. Cardiomediastinal silhouett e is normal. There are mild bony degenerative changes. IMPRESSION: 1. PICC line in position. 2. Diffuse bilateral pneumonia, mild progression. Reviewed, dictated and finalized at location B. ODUCTION ORDER PROCESSOR
--- NOTE | ~2021-07-06 | US_ITS ---
EXAMINATION: US abdomen duplex complete EXAM DATE: 07/25/2021 09:35 INDICATION: suspected portal vein thrombosis . TECHNIQUE: Multiple grayscale and Doppler duplex images of the hepatic arteries and veins were obtain ed (by a technologist who performed the scan) and subsequently reviewed. Correlation is made to CT ab domen without contrast 07/16/2021. FINDINGS: IVC, right, middle and left hepatic veins are patent. Portal vein is also patent and has expected hep atopedal flow direction. Hepatic artery is patent. Lobular liver contour, cirrhosis. No perihepatic a scites. IMPRESSION: 1. Patent portal, hepatic veins and hepatic artery. 2. Cirrhosis. Reviewed, dictated and finalized at location B. IGURATION TECHNICIAN
--- NOTE | ~2021-07-06 | XR_ITS ---
EXAMINATION: XR chest 1V portable DATE: 07/21/2021 06:27 INDICATION: Pneumonia TECHNIQUE: frontal view of the chest was obtained. COMPARISON: Chest radiograph dated 07/21/2021 at 12:51 AM and 07/20/[address] dated 07/06/2021 FINDINGS: No significant change in interstitial, linear and patchy airspace opacities throughout the right lung and in the left mid to lower lung zone. Increased lucency in the bilateral upper lung zones and the lateral right midlung zone corresponding to emphysema on prior CT. No pleural effusion or pneumothora x. Calcified nodule at the right lung base along with calcified right hilar and mediastinal lymph nod es consistent with old granulomatous disease. The cardiomediastinal silhouette is normal. IMPRESSION: 1. Unchanged diffuse bilateral lung disease consistent with pneumonia versus pulmonary edema superimp osed over emphysema. Reviewed, dictated and finalized at location A. ION INSTALLER AND REPAIRER IMPRESSION: 1. Unchanged diffuse bilateral lung disease consistent with pneumonia versus pu lmonary edema superimposed over emphysema.
--- NOTE | ~2021-07-06 | XR_ITS ---
XR abdomen/kub 1V 07/07/2021 12:42 Indication: Abdominal pain and bloating Procedure: KUB Comparison: 04/29/2018 Findings: Bowel gas pattern is nonobstructive. Moderate colonic fecal loading. There is dextroscolios is. There is a right bipolar hemiarthroplasty. There are surgical changes transfixing the proximal as pect of the left femur. Moderate lumbar spondylosis. No renal stones are identified. Impression: 1: Nonobstructive bowel gas pattern. Reviewed, dictated and finalized at location B. ICAL TRAINING SPECIALIST Impression: 1: Nonobstructive bowel gas pattern.
--- NOTE | ~2021-07-06 | XR_ITS ---
EXAMINATION: [id number]_[id number]_CR DATE: 07/24/2021 16:46 INDICATION: Postthoracentesis TECHNIQUE: frontal view of the chest was obtained. COMPARISON: Chest radiograph dated 07/22/2021 FINDINGS: Opacities in the bilateral mid and lower lung zones which could represent pneumonia, atelectasis, pul monary edema or most likely some combination thereof. No pneumothorax. Hazy opacity left lower lung z one which could represent a small left pleural effusion. No right pleural effusion. The cardiomediast inal silhouette is normal. IMPRESSION: 1. Opacities in the bilateral mid and lower lung zones consistent with pneumonia, atelectasis, pulmon ramo edema or some combination thereof possibly with associated small left pleural effusion. Reviewed, dictated and finalized at location A. TOLOGY TEACHER IMPRESSION: 1. Opacities in the bilateral mid and lower lung zones consistent with pneumoni a, atelectasis, pulmonary edema or some combination thereof possibly with assoc iated small left pleural effusion.
--- NOTE | ~2021-07-06 | US_ITS ---
EXAMINATION: US venous doppler UE BI EXAM DATE: 07/24/2021 16:18 INDICATION: Pulmonary embolism. TECHNIQUE: Multiple grayscale, color flow, Doppler sonographic images of the upper extremity veins bi laterally obtained by technologist. Compression was performed where able. There is no prior study f or comparison. FINDINGS: RIGHT upper extremity: Jugular vein: ------------> Normal. Subclavian vein: --------> Normal. Axillary vein:------------> Normal. Brachial vein:-----------> Normal. Basilic vein: ------------> Normal. Cephalic vein: ----------> Normal. Radial vein: ------------> Normal. Ulnar vein: > Normal. Right-sided PICC line identified without surrounding clot. LEFT upper extremity: Jugular vein: ------------> Normal. Subclavian vein: --------> Normal. Axillary vein:------------> Normal. Brachial vein:-----------> Normal. Basilic vein: ------------> Normal. Cephalic vein: ----------> Normal. Radial vein: ------------> Normal. Ulnar vein: > Normal. IMPRESSION: No upper extremity DVT bilaterally. Reviewed, dictated and finalized at location B. WALK INSPECTOR
--- NOTE | ~2021-07-06 | US_ITS ---
US abdomen limited 07/20/2021 10:10 Indication: Ascites. Paracentesis requested. Procedure: High-resolution limited ultrasound of the abdomen and pelvis Comparison: Ultrasound dated 07/15/2021 Findings: There is a small amount of ascites, significantly reduced compared with prior examination. Paracentesis canceled. Consider follow-up ultrasound in 4-5 days to assess volume of ascites. Impression: 1: Small amount of ascites, decreased volume compared with prior study. Paracentesis canceled. Reviewed, dictated and finalized at location A. HER REPAIRER Impression: 1: Small amount of ascites, decreased volume compared with prior study. Paracen tesis canceled.
--- NOTE | ~2021-07-06 | XR_ITS ---
EXAMINATION: XR chest 1V portable EXAM DATE: 08/04/2021 05:59 INDICATION: COVID TECHNIQUE: Portable AP frontal chest x-ray was obtained. Comparison is made to prior examination from 07/25/2021. FINDINGS: There is left midlung zone and right upper lung zone predominant bilateral airspace disease most consistent with pneumonia and atelectasis. Mild improvement compared to 07/25/2021. No pneumotho rax or pleural effusion. Cardiomediastinal silhouette is normal. There are mild bony degenerative josué nges. IMPRESSION: Bilateral pneumonia and atelectasis, mild improvement. Reviewed, dictated and finalized at location A. H MIXER
--- NOTE | ~2021-07-06 | CT_ITS ---
EXAMINATION: CTA chest PE protocol DATE: 07/07/2021 08:56 FUR FINISHER INDICATION: Shortness of breath TECHNIQUE: Computed tomographic angiography (CTA) of the chest was performed with 100 mL Omnipaque-35 0 intravenous contrast. The dose-length product was 655.79 mGy-cm. Maximum intensity projection 3D-re constructions of the aorta and other arteries were constructed by the technologist on a separate work station. Automated exposure control and iterative reconstruction technique were employed. COMPARISON: Chest x-ray dated 07/06/2021 study technically limited by motion artifact. FINDINGS: No large central pulmonary embolism. There is atherosclerosis of the aorta and coronary art eries. Heart size upper normal. Trace pleural effusions with bibasilar dependent atelectasis. Calcifi ed mediastinal lymph nodes. There is emphysema. No endobronchial lesions. There is dependent atelecta sis. No pneumothorax. No endobronchial lesions. No focal pulmonary nodules or masses. There is cirrho sis with evidence for portal hypertension. Splenomegaly. Small amount of ascites. IMPRESSION: 1. No large central pulmonary embolism. 2: Trace pleural effusions with dependent atelectasis. 3: Emphysema. 4: Cirrhosis with probable portal hypertension. Splenomegaly. 5: Small amount of ascites. Reviewed, dictated and finalized at location B. FINISHER
--- NOTE | ~2021-07-06 | CT_ITS ---
EXAMINATION: CTA chest PE protocol EXAM DATE: 07/23/2021 15:39 INDICATION: Hemoptysis. COVID TECHNIQUE: Spiral CTA of the chest (pulmonary arteries) was performed with 100 cc Omnipaque 350 intr avenous contrast injection. Images were acquired during the pulmonary arterial phase. Coronal maxi mum intensity projection 3D-reconstructions were created by the technologist on dedicated workstation . Axial, coronal and sagittal reformatted images were reviewed. The dose-length product (DLP) for t his examination was 769.72 mGy-cm. The exposure was tailored according to patient size (auto mA exp osure control), and iterative reconstruction (ASIR) was used as additional dose reduction technique. Comparison is made to prior examination from 07/06/2021. FINDINGS: Single segmental pulmonary embolus identified in right upper lobe anterior segment, identif ied on axial images 101-103. Moderate right-sided, small to moderate left-sided pleural effusions. Moderate amount of bilateral ai rspace disease dependent areas more affected, pneumonia and/or edema. There is bilateral lower lobe s ubsegmental atelectasis. Heart is within normal size limits. Calcified mediastinal lymph node. Cirrho sis, splenomegaly, portal hypertension. There are no osteoblastic or osteolytic lesions identified. IMPRESSION: 1. Left upper lobe segmental pulmonary embolism, low clot burden. 2. Moderate pneumonia and/or edema. 3. Basilar subsegmental atelectasis. 4. Moderate right, small to moderate left pleural effusions. 5. Cirrhosis, splenomegaly, portal hypertension. I discussed this case with IM unit nurse caring for patient at 07/23/2021 15:51 PAPER REWINDER. She is ashleigh the astro technician. I left a message for Beatris Roach MD 07/23/2021 15:53 PAPER REWINDER . Reviewed, dictated and finalized at location B. R REWINDER IMPRESSION: 1. Left upper lobe segmental pulmonary embolism, low clot burden. 2. Moderate pneumonia and/or edema. 3. Basilar subsegmental atelectasis. 4. Moderate right, small to moderate left pleural effusions. 5. Cirrhosis, splenomegaly, portal hypertension. I discussed this case with IM unit nurse caring for patient at 07/23/2021 15:[address] She is ashleigh the astro technician. I left a message for Beatris patiño MD 07/23/2021 15:53 PAPER REWINDER .
--- NOTE | ~2021-07-06 | XR_ITS ---
EXAMINATION: XR chest 1V portable DATE: 07/21/2021 00:57 INDICATION: Shortness of breath. Respiratory distress. TECHNIQUE: frontal view of the chest was obtained. COMPARISON: Chest radiograph dated 07/20/[address] dated 07/06/2021 FINDINGS: Scattered airspace opacities throughout the right lung and in the left mid to lower lung zone. Increa sed lucency in the upper lung zones consistent with emphysema better appreciated on prior CT. No pleu ral effusion or pneumothorax. The cardiomediastinal silhouette is normal. IMPRESSION: 1. Unchanged diffuse bilateral lung disease consistent with pneumonia versus pulmonary edema superimp osed over emphysema. Reviewed, dictated and finalized at location A. IVIST MILITARY HISTORY IMPRESSION: 1. Unchanged diffuse bilateral lung disease consistent with pneumonia versus pu lmonary edema superimposed over emphysema.
--- NOTE | ~2021-07-06 | XR_ITS ---
XR abdomen/kub 1V 07/11/2021 13:07 INDICATION: Flank pain TECHNIQUE: KUB COMPARISON: None FINDINGS: Bowel gas pattern is normal. There is no evidence of free air, mass, organomegaly, ascites or obstruction. No abnormal calculi are seen. The bones appear intact. There are surgical changes in both hips. Mild lumbar spondylosis with dextroscoliosis. IMPRESSION: 1: No acute abdominal abnormality identified. Reviewed, dictated and finalized at location B. OR FOREMAN
--- NOTE | ~2021-07-06 | XR_ITS ---
XR chest 1V portable 07/11/2021 13:07 Indication: Pneumonia Procedure: AP portable chest Comparison: Comparison to multiple prior studies sequentially, with oldest reviewed study dated 04/14. Findings: Patchy bilateral airspace disease, compatible with pneumonia. Calcified granuloma right low er lobe. Heart size normal. No pleural effusion or pneumothorax. Impression: 1: Patchy bilateral airspace disease, compatible with pneumonia. Reviewed, dictated and finalized at location B. RAM TECHNICIAN Impression: 1: Patchy bilateral airspace disease, compatible with pneumonia.
--- NOTE | ~2021-07-06 | XR_ITS ---
XR chest 1V portable DATE: 07/21/2021 14:47 INDICATION: Increased oxygen requirements TECHNIQUE: Portable upright AP chest on July 21, 2021 at 1442 hours COMPARISON: July 21, 2021 portable AP chest at 0600 hours FINDINGS: Normal heart size. There is pulmonary vascular prominence. There are bilateral Amos B-lines suggesting pulmonary tissu e edema as well as mild prominence of the minor fissure which suggests subpleural edema. No pleural e ffusion is evident. There are extensive bilateral pulmonary infiltrates, increased in severity since earlier today. IMPRESSION: Increased pulmonary edema and infiltrates since earlier today Normal heart size Reviewed, dictated and finalized at location A. L PICKER
--- NOTE | ~2021-07-06 | CT_ITS ---
EXAMINATION: CT abdomen pelvis w con DATE: 07/09/2021 09:51 INDICATION: Indigestion and sepsis. Hepatitis C. Cirrhosis. TECHNIQUE: Computed tomography (CT) of the abdomen and pelvis was performed with 100 cc Omnipaque 350 intravenous contrast. The dose-length product was 1354.94 mGy-cm. Automated exposure control and ite rative reconstruction technique were employed. COMPARISON: CT dated 05/03/2018. FINDINGS: Small pleural effusions. Heart size normal. Emphysema. There is dependent atelectasis. Ther e is splenomegaly. There are calcified granulomas in the spleen. There is cirrhosis of the liver with evidence for portal hypertension. The pancreas, adrenal glands and right kidney are unremarkable. There are left renal cysts. Nonobstru ctive bowel gas pattern. There is mild mucosal thickening of the small bowel without obstruction. The re is ascites. There are bilateral surgical changes of the hips. No free air. No significant vascular abnormality. No lymphadenopathy. Gallbladder is contracted. There is an age-indeterminate fracture o f the left acetabulum. Moderate lumbar spondylosis with dextroscoliosis. IMPRESSION: 1. Cirrhosis of the liver with portal hypertension. 2: Small bowel mucosal thickening in the left upper abdomen, suspicious for enteritis. 3: Small pleural effusions with compressive atelectasis. 4: Emphysema. 5: Ascites. 6: Age-indeterminate fracture of the left acetabulum Reviewed, dictated and finalized at location B. SIONS TESTING TECHNICIAN IMPRESSION: 1. Cirrhosis of the liver with portal hypertension. 2: Small bowel mucosal thickening in the left upper abdomen, suspicious for ent eritis. 3: Small pleural effusions with compressive atelectasis. 4: Emphysema. 5: Ascites. 6: Age-indeterminate fracture of the left acetabulum
--- NOTE | ~2021-07-06 | US_ITS ---
EXAMINATION: US venous doppler LE EXAM DATE: 07/24/2021 16:17 INDICATION: PE TECHNIQUE: Multiple grayscale, color flow and Doppler images of the lower extremity deep venous syste ms bilaterally were obtained and reviewed. There is no prior study for comparison. FINDINGS: Right side: The right common femoral, femoral and profunda veins demonstrate normal color flow, respi ratory variation, augmentation and compressibility. Compressibility, color flow confirmed within the right popliteal, posterior tibial, peroneal, and greater saphenous veins. Left side: Below-knee amputation. The left common femoral, femoral and profunda veins demonstrate nor mal color flow, respiratory variation, augmentation and compressibility. Compressibility, color flow confirmed within the left popliteal and greater saphenous veins. IMPRESSION: 1. No lower extremity deep venous thrombosis bilaterally. Reviewed, dictated and finalized at location B. GHT LOADING SUPERVISOR
--- NOTE | ~2021-07-06 | XR_ITS ---
XR chest 1V portable 07/20/2021 04:27 Indication: Wheezing and shortness of breath Procedure: AP portable chest Comparison: Comparison to multiple prior studies sequentially, with oldest reviewed study dated 06/23. Findings: Patchy bilateral airspace disease, compatible with pneumonia. No significant effusion or pn eumothorax. Heart size normal. No acute osseous abnormality. Impression: 1: Developing patchy bilateral airspace disease, compatible with pneumonia. Reviewed, dictated and finalized at location A. BITS MANAGER Impression: 1: Developing patchy bilateral airspace disease, compatible with pneumonia.
--- NOTE | ~2021-07-06 | US_ITS ---
EXAMINATION: US thoracentesis DATE: 07/24/2021 16:23 INDICATION: pleural effusion TECHNIQUE: The procedure and its risks and benefits were discussed with the patient. Potential risks discussed included bleeding, infection, and pneumothorax. The patient understood the risks and agreed to proceed. The skin was prepped and draped in sterile fashion. 1% lidocaine was used for local anes thesia. Under ultrasound guidance, a 5 Fr catheter with trochar was advanced into the right pleural e ffusion. Fluid was aspirated. The catheter was removed, and a dressing was applied. There were no imm ediate complications. FINDINGS: Ultrasound images demonstrate a moderate-sized right pleural effusion and the catheter within the flu id. IMPRESSION: 1. Successful ultrasound-guided thoracentesis yielding 1000 mL of clear yellowish-orange fluid. Reviewed, dictated and finalized at location A. BASES SOFTWARE CONSULTANT IMPRESSION: 1. Successful ultrasound-guided thoracentesis yielding 1000 mL of clear yellow shiva-orange fluid.
--- NOTE | ~2021-07-06 | US_ITS ---
EXAMINATION: US venous doppler LE RT EXAM DATE: 07/07/2021 12:41 INDICATION: Right leg swelling. Elevated d-dimer. TECHNIQUE: Multiple grayscale, color flow and Doppler images of the right lower extremity deep venous system were obtained and reviewed. Comparison is made to prior examination from 05/23/2018. FINDINGS: The right common femoral, femoral and profunda veins demonstrate normal color flow, respira tory variation, augmentation and compressibility. Compressibility, color flow confirmed within the r ight popliteal, posterior tibial, peroneal, and greater saphenous veins. IMPRESSION: 1. No right lower extremity deep venous thrombosis. Reviewed, dictated and finalized at location A. TRAPPER
--- NOTE | ~2021-07-06 | US_ITS ---
EXAMINATION: US paracentesis abd w/image DATE: 07/09/2021 14:35 INDICATION: Ascites. TECHNIQUE: The procedure and its risks, benefits, and alternatives were discussed with the patient. P otential risks discussed included bleeding and infection. The skin was prepped and draped in sterile fashion. 1% lidocaine was used for local anesthesia. Under ultrasound guidance, a 5 Fr catheter with trochar was advanced into the ascites in the left lower quadrant. Fluid was aspirated. The catheter w as removed, and a dressing was applied. There were no immediate complications. FINDINGS: Ultrasound images demonstrate ascites and the catheter within the fluid. IMPRESSION: 1. Successful ultrasound-guided paracentesis yielding 1500 mL of clear, yellow fluid. Reviewed, dictated and finalized at location A. INCT POLICE CAPTAIN
--- NOTE | ~2021-07-06 | CT_ITS ---
EXAMINATION: CT abdomen pelvis wo con EXAM DATE: 07/16/2021 16:09 INDICATION: Abdominal pain . TECHNIQUE: Spiral CT of the abdomen and pelvis was performed without contrast. Axial, coronal and s agittal images of the abdomen and pelvis were reviewed. The dose-length product (DLP) for this exami [facility] was 1348.03 mGy-cm. The exposure was tailored according to patient size (auto mA exposure con trol), and iterative reconstruction (ASIR) was used as additional dose reduction technique. Compariso n is made to prior examination from 07/09/2021. FINDINGS: Compared to previous examination, previously seen edematous loops of jejunum appear to have normalized, less conspicuous today. Bilateral gynecomastia. There is moderate emphysema. Right lower lobe granuloma. Some chronic hyperinflation. Severely nodular liver surface, liver atrophy, portal hypertension, mild splenomegaly. There is moder ate amount of ascites. No free intraperitoneal gas. Small left adrenal gland adenoma. Right adrenal g land, pancreas, gallbladder are unremarkable. Appendix is identified, does not appear obstructed. The re is expected amount of colonic contents. No dilated small bowel. Generalized mesenteric fluid, fat stranding. Bilateral inguinal hernia repairs. Small left inguinal fat-containing hernia. Mild sigmoid diverticulosis. Moderate aortic arterial sclerosis. Aorta is normal in caliber. Prostate and bladder poorly visualized due to artifact from hardware. Mild dextroscoliosis upper lumbar region. Right hip replacement. Left hip lag screws and intramedulla ry marianela. Old left inferior ramus fracture. Left acetabular fracture unchanged with chronic component, but may have superimposed subacute or acute component. IMPRESSION: 1. Resolution of previously seen jejunal edema. 2. Cirrhosis, ascites, portal hypertension, mild splenomegaly. 3. Left acetabular fracture unchanged which may be acute or subacute on chronic. 4. Other chronic findings. Reviewed, dictated and finalized at location G. AGING DESIGNER IMPRESSION: 1. Resolution of previously seen jejunal edema. 2. Cirrhosis, ascites, portal hypertension, mild splenomegaly. 3. Left acetabular fracture unchanged which may be acute or subacute on chroni c. 4. Other chronic findings.
--- NOTE | ~2021-07-06 | XR_ITS ---
EXAMINATION: XR chest 1V portable DATE: 07/25/2021 06:41 INDICATION: Pleural effusions TECHNIQUE: frontal view of the chest was obtained. COMPARISON: Chest radiograph dated 07/24/2021 FINDINGS: Unchanged airspace opacities scattered throughout both lungs. No pleural effusion or pneumothorax. Th e cardiomediastinal silhouette is normal. Calcified right hilar and mediastinal lymph nodes consisten t with old granulomatous disease. IMPRESSION: 1. Unchanged airspace opacities throughout both lungs which could represent pneumonia, pulmonary javier a or some combination thereof. Reviewed, dictated and finalized at location A. WORKER IMPRESSION: 1. Unchanged airspace opacities throughout both lungs which could represent pne umonia, pulmonary edema or some combination thereof.
--- NOTE | ~2021-07-06 | XR_ITS ---
EXAMINATION: XR chest 1V portable EXAM DATE: 07/06/2021 21:40 INDICATION: cough, SOB, LOW O2 STATS, COVID + ON 07/04 . TECHNIQUE: Portable AP frontal chest x-ray was obtained. Comparison is made to prior examination from 06/23/2021. FINDINGS: Small amount of lower lung zone airspace disease, appearance consistent with subsegmental a telectasis. No confluent consolidation, pneumothorax or pleural effusion suspected. Cardiomediastinal silhouette is normal. There are no osseous abnormalities identified. IMPRESSION: Bibasilar linear atelectasis. Reviewed, dictated and finalized at location A. EL ASSISTANT
--- NOTE | ~2021-07-06 | XR_ITS ---
EXAMINATION: XR chest 1V portable EXAM DATE: 07/09/2021 06:06 INDICATION: fluid status . TECHNIQUE: Portable AP frontal chest x-ray was obtained. Comparison is made to prior examination from 07/06/2021. FINDINGS: Low lung volume. Some linear basilar atelectasis. No confluent consolidation, pneumothorax or pleural effusion suspected. Cardiomediastinal silhouette is normal. There are no osseous abnormali ties identified. IMPRESSION: 1. Scattered bilateral subsegmental atelectasis. Reviewed, dictated and finalized at location A. TIC PHYSIOTHERAPIST
--- NOTE | ~2021-07-06 | US_ITS ---
EXAMINATION: US paracentesis abd w/image DATE: 07/15/2021 11:16 INDICATION: Ascites. TECHNIQUE: The procedure and its risks, benefits, and alternatives were discussed with the patient. P otential risks discussed included bleeding and infection. The skin was prepped and draped in sterile fashion. 1% lidocaine was used for local anesthesia. Under ultrasound guidance, a 5 Fr catheter with trochar was advanced into the ascites in the left lower quadrant. Fluid was aspirated. The catheter w as removed, and a dressing was applied. There were no immediate complications. FINDINGS: Ultrasound images demonstrate ascites and the catheter within the fluid. IMPRESSION: 1. Successful ultrasound-guided paracentesis yielding 2750 mL of yellow fluid. Reviewed, dictated and finalized at location A. HANDISING TEAM LEAD
--- NOTE | 2021-07-06 21:22 | ECG_ITS ---
Measurements Intervals Spencer Rate: 85 P: 61 ME: 163 QRS: 29 QRSD: 84 T: 57 QT: 366 QTc: 436 Interpretive Statements SINUS RHYTHM INCOMPLETE RIGHT BUNDLE BRANCH BLOCK LOW QRS VOLTAGE IN PRECORDIAL LEADS BASELINE ARTIFACT- I, II, III, AVR, AVL, AVF, V1-V6 BORDERLINE ECG Electronically Signed On 07-07-2021 12:43:59 [employer] by Dani Suarez D.O.
[2021-07-06] MEDS: ALBUTEROL SULFATE (*SP) INHALER 2 PUFF INHALATION (21:46)
[2021-07-06 21:50] LABS: Base Excess ABG -2.2 mEq/l (+/-2.0); Fractional Inspired Oxygen 36 %; HCO3 ABG 20.5 mEq/l (22.0-26.0); Oxygen Content ABG 16.4 %vol (16.0-22.0); Oxygen Saturation ABG 93.2 % (95.0-100.0); Oxyhemoglobin 91.8 % THb (90.0-100.0); PCO2 ABG 29.3 mmHg (35.0-45.0); PO2 ABG 61.7 mmHg (80.0-100.0); PO2 FiO2 Ratio Arterial Blood 1.71 %; Total Hemoglobin 12.7 g/dL (12.0-18.0); pH ABG 7.462 (7.350-7.450)
[2021-07-06 21:51] LABS: Device NASAL CANNULA; Site Drawn RIGHT BRACHIAL
--- NOTE | 2021-07-06 22:01 | ED.SOB ---
HPI - SOB/Dyspnea General Chief Complaint: Shortness of Breath/Dyspnea Stated Complaint: SOB, COVID 07/04/21 Time Seen by Provider: 07/06/21 21:22 Source: RN notes reviewed History of Present Illness HPI Narrative: Patient presents emergency department from [facility] via EMS for shortness of breath. Patient tested positive for COVID on 07/04/2021. Patient was noted to have O2 saturation of 85% on room air this evening is placed on nasal cannula and is currently on 4 L nasal cannula states has been feeling short of breath for the past 2 days cough that has been nonproductive he denies any known fevers or chills states that he has been having some intermittent anterior chest pain described as sharp with coughing but denies any currently denies any abdominal pain nausea vomiting or diarrhea Related Data Home Medications Medication Instructions Recorded Confirmed Allergy Relief (fluticasone) 2 spray EACH NARE DAILY 06/24/21 06/24/21 Arthritis Pain (diclofenac) 2 g QID 06/24/21 06/24/21 aripiprazole 30 mg PO DAILY 06/24/21 06/24/21 azelastine 2 spray INTRANASAL BID 06/24/21 06/24/21 cholecalciferol (vitamin D3) 50 mcg PO DAILY 06/24/21 06/24/21 docusate sodium 1 cap PO BID 06/24/21 06/24/21 donepezil 10 mg PO HS 06/24/21 06/24/21 escitalopram oxalate 20 mg PO DAILY 06/24/21 06/24/21 furosemide 40 mg PO DAILY 06/24/21 06/24/21 ipratropium bromide 1 spray EACH NARE TID PRN 06/24/21 06/24/21 lactulose 30 ml PO BID 06/24/21 06/24/21 loperamide 2 mg PO BID PRN 06/24/21 06/24/21 melatonin 3 mg PO HS 06/24/21 06/24/21 mirabegron 25 mg PO DAILY 06/24/21 06/24/21 propranolol 60 mg PO DAILY 06/24/21 06/24/21 spironolactone 50 mg PO DAILY 06/24/21 06/24/21 Allergies Allergy/AdvReac Type Severity Reaction Status Date / Time Sulfa (Sulfonamide Allergy Unknown Rash Verified 07/06/21 22:40 Antibiotics) Review of Systems Review of Systems: Gen.: Denies fevers or chills Eyes: Denies eye pain or visual change ENT: Denies congestion Respiratory: See HPI CV: Reports chest pain GI: Denies abdominal pain nausea, emesis or diarrhea Musculoskeletal: Denies back pain or muscle pain Neuro: Denies numbness, tingling, weakness or focal weakness Skin: Denies rash Except as documented, all other systems reviewed and negative PMFSH Past Medical History Medical History Acute respiratory failure Cirrhosis Hepatitis C History of left below knee amputation Surgical History Surgical History (Updated 06/23/21 @ 21:17 by Dee Burns MD) Hx of tonsillectomy Family History Family History (Updated 06/24/21 @ 05:01 by Erwin Arais RN) Father Diabetes mellitus Mother Family history of cardiovascular disease Sibling Family history of malignant neoplasm of urinary bladder Social History Social History Smoking packs per day: 1 Smoking cigarettes per day: 20.0 Smoking status: Former smoker Alcohol intake: never Alcohol use details: former heavy drinker but stopped years ago Substance use: never Spiritual care concerns: No Exam Narrative: APPEARANCE: No acute distress, nontoxic, resting in bed EYES: EOMI HEENT: Normocephalic, atraumatic, OMM RESPIRATORY: No respiratory distress coarse breath sounds throughout the bilateral lung sawant CARDIOVASCULAR: Regular rate and rhythm without murmurs rubs or gallops. ABDOMINAL: Soft, nontender, nondistended, no rebound or guarding MUSCULOSKELETAl: Moves bilateral upper extremities, the right lateral hip is tender from recent surgery surgical wound is clean dry and intact, left lower extremity amputation NEURO: Awake and alert x 3. Following commands, speech normal, no focal deficits SKIN:: Warm, dry. No rashes lesions or abrasions PSYCHIATRIC: Normal affect/mood, Course Course Emergency Course: Reviewed old records including recent admission Discussed with Dr. Reina
[2021-07-06 22:48] LABS: Basophils Absolute Auto 0.1 K/mm3 (0.0-0.1); Basophils Percent Auto 0.3 % (0.2-1.2); Hematocrit 34.9 % (42.0-52.0); Hemoglobin 11.5 g/dL (14.0-18.0); Immature Granulocyte Absolute 0.19 K/mm3 (0.00-0.031); Immature Platelet Fraction Pct 8.5 % (0.9-11.2); Lymphocytes Absolute Auto 0.38 K/mm3 (0.9-3.2); Mean Corpuscular Hemoglobin 31.4 pg (26-34); Mean Corpuscular Volume 95.4 fl (80-100); Mean Platelet Volume 11.8 fl (7.4-10.4); Monocytes Absolute Auto 0.7 K/mm3 (0.1-0.6); Monocytes Percent Auto 3.5 % (2.6-8.5); Neutrophils Absolute Auto 17.9 K/mm3 (1.3-6.7); Neutrophils Percent Auto 93.2 % (45.5-73.1); Platelet Count Result 125 k/mm3 (150-375); Red Blood Count 3.66 M/mm3 (4.6-6.20); Red Cell Distribution Width 14.6 % (11.5-14.5); White Blood Count 19.2 K/mm3 (4.5-10.0)
[2021-07-06] MEDS: HYDROcodone/acetaminophen (*CRX) 5-325 MG TABLET 1 TAB PO (23:00)
[2021-07-06 23:01] LABS: INR 1.3; Prothrombin Time 16.1 Seconds (11.1-14.7)
[2021-07-06 23:02] LABS: Partial Thromboplastin Time 33.2 SECONDS (22.3-36.8)
[2021-07-06 23:07] LABS: Lactate Dehydrogenase 828 U/L (313-618)
[2021-07-06 23:10] LABS: Alanine Aminotransferase 28 U/L (4-50); Albumin Level 2.9 g/dL (3.5-5.1); Alkaline Phosphatase 132 U/L (38-126); Anion Gap 7 mmol/L (8-16); Aspartate Amino Transferase 65 U/L (17-59); Bilirubin,Total 2.4 mg/dL (0.2-1.3); Blood Urea Nitrogen 16 mg/dL (9-20); Calcium 8.2 mg/dL (8.4-10.2); Carbon Dioxide 26 mmol/L (22-30); Chloride 97 mmol/L (98-107); Estimated CRCL calculation 71 ml/min; Estimated Glomerular Filt Rate > 60; Glucose 112 mg/dL (65-110); Potassium 3.7 mmol/L (3.4-5.0); Sodium 130 mmol/L (137-145)
[2021-07-06 23:18] LABS: D Dimer 9.64 ug/mL (<0.48)
[2021-07-06 23:21] LABS: CRP 15.4 mg/dL (<1.0)
[2021-07-07] VITALS (25 sets, daily range): BP systolic 87–131; BP diastolic 49–85; PULSE 66–81; RESP 16–30; TEMP 36.3–36.8; O2SAT 90–98
--- NOTE | 2021-07-07 | ECHO_ITS ---
Patient Info Name: Alex Fish Age: 76 years : 1945 Gender: Male Ht: 72 in Wt: 228 lbs BSA: 2.32 m2 HR: 73 bpm BP: 100 / 49 mmHg Heart Rhythm: Sinus Rhythm Technical Quality: Fair Exam Date: 07/07/2021 10:36 AM Exam Location: [facility] Exam Room: 232 Patient Status: Inpatient Admit Date: 07/07/2021 Staff Ordering Physician: Carlos Garcia Wooling Machine Operator: Gem Huang RDCS Attending Provider: Reyes Costa MD Referring Physician: Jose VALDOVINOS; Exam Type: CA echo doppler w bubble study Study Info Indications - chest pain covid hypoxia sob Complete two-dimensional, color flow and Doppler transthoracic echocardiogram is performed with agitated saline. Contrast/Agitated Saline Contrast/Ag. Saline: Agitated Saline Amount: 20.00 ml Summary 1. Left ventricular systolic function is normal, estimated at 65-70%. 2. The left ventricular diastolic function is grade II diastolic dysfunction. 3. Right ventricular chamber dimension is moderately enlarged. 4. Left atrial chamber dimension is moderately enlarged. 5. There is trace aortic valve regurgitation. 6. There is trace mitral valve regurgitation. 7. Agitated saline contrast demonstrated no evidence of intracardiac shunt. Left Ventricle Left ventricular chamber dimension is normal. Left ventricular systolic function is normal, estimated at 65-70%. The left ventricular diastolic function is grade II diastolic dysfunction. Right Ventricle Right ventricular chamber dimension is moderately enlarged. Left Atria Left atrial chamber dimension is moderately enlarged. Right Atria Right atrial chamber dimension is mildly enlarged. Aortic Valve The aortic valve is trileaflet. There is mild aortic valve sclerosis. There is trace aortic valve regurgitation. Pulmonic Valve The pulmonic valve is not well visualized. Mitral Valve The mitral valve has normal leaflets. There is trace mitral valve regurgitation. The mitral valve annulus is mildly calcified. Tricuspid Valve The tricuspid valve leaflets are normal. There is mild tricuspid valve regurgitation. Mild pulmonary hypertension, estimated pulmonary arterial systolic pressure is 46 mmHg. Pericardium/Pleural The pericardium appears normal. Aorta The aortic root size at the sinus of Valsalva is normal. Left Ventricular Outflow Tract Name Value Normal LVOT 2D LVOT Diameter 2.1 cm LVOT Doppler LVOT Peak Gradient 5 mmHg LVOT Mean Gradient 2 mmHg LVOT VTI 24 cm LVOT VTI/AV VTI Ratio 0.8 LVOT Stroke Volume 84 ml LVOT CO 14.3 l/min LVOT CI 6.2 l/min/m2 Pulmonic Valve Name Value Normal PV Doppler
[2021-07-07 00:28] LABS: Add Urine Microscopic? YES; Appearance Urine Clear (Clear); Bacteria Urine Trace /hpf; Bilirubin Urine Negative (Negative); Blood Urine 2+ (Negative); Color Urine Amber (Yellow); Glucose Urine UA Negative (Negative); Ketones Urine Negative (Negative); Leukocyte Esterase Ur 3+ LEU/UL (Negative); Mucus Urine Rare /lpf; Nitrate Urine Positive (Negative); Protein Urine Negative (Negative); Specific Grav Ur 1.029 (1.001-1.035); Squamous Epithelial Cell Urine Occasional /hpf (Few); WBC Clumps Urine Present /HPF; WBC Urine >75 /hpf
[2021-07-07] MEDS: ASPIRIN 81 MG CHEWABLE TABLET 324 MG PO (01:08)
[2021-07-07] MEDS: SODIUM CHLORIDE 0.9% IV 1,000 ML 999 ML IV CONT (01:09)
[2021-07-07 01:11] LABS: Lactic Acid Reflex 2.6 mmol/L (0.7-2.1)
[2021-07-07] MEDS: ENOXAPARIN 100 MG/ML SYRINGE SUB-Q (01:22)
--- NOTE | 2021-07-07 03:02 | PC.NURSE ---
insulation worker apprentice notified of need to draw repeat trop - pt difficult stick.
--- NOTE | 2021-07-07 03:04 | PC.NURSE ---
SBAR faxed at [phone].
[2021-07-07] MEDS: ALBUTEROL SULFATE (*SP) INHALER 2 PUFF INHALATION ×4 (03:38→20:50)
[2021-07-07 03:52] LABS: Reflex Lactic Acid Yes or No Add Lactic
--- NOTE | 2021-07-07 03:52 | PC.NURSE ---
Report to SARAH KWAN.
--- NOTE | 2021-07-07 04:45 | ADMGEN ---
This patient, Alex Fish, was admitted to IMU Room 232-01. Patient/family oriented to hospital policies and general routines including ID bracelet, bed and alarms, visiting hours, pain management, procedures, bathroom and other care routines, personal items, smoking policy, room service/diet, and visiting hours. Information on how to activate the Rapid Response Team has been discussed. Patient/Family are encouraged to report perceived risks to care and to ask questions if they do not understand what they are told or what they should do.
[2021-07-07] MEDS: SODIUM CHLORIDE 0.9% IV 1,000 ML 80 ML IV CONT (05:42)
[2021-07-07 05:45] LABS: Troponin I 0.173 ng/mL (0.000-0.034)
[2021-07-07 06:23] LABS: Lactic Acid 2.1 mmol/L (0.7-2.1)
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
[2021-07-07] MEDS: CHOLECALCIFEROL 1,000 UNITS TABLET 2000 UNITS PO (09:38)
[2021-07-07] MEDS: ESCITALOPRAM OXALATE 10 MG TABLET 20 MG PO (09:38)
[2021-07-07] MEDS: SENNA/DOCUSATE SODIUM TABLET 2 TAB PO (09:38)
[2021-07-07] MEDS: MIRABEGRON 25 MG ER TABLET PO (09:39)
[2021-07-07] MEDS: methylPHENIDATE HCL (*CRX) 5 MG TABLET PO ×2 (09:39→18:08)
[2021-07-07] MEDS: LORATADINE 10 MG TABLET PO (09:39)
[2021-07-07] MEDS: HYDROcodone/acetaminophen (*CRX) 5-325 MG TABLET 1 TAB PO ×2 (09:54→21:48)
[2021-07-07 10:29] LABS: Alanine Aminotransferase 29 U/L (4-50); Estimated CRCL calculation 88 ml/min; Estimated Glomerular Filt Rate > 60
[2021-07-07 10:40] LABS: INR 1.6; Prothrombin Time 18.6 Seconds (11.1-14.7)
[2021-07-07 11:20] LABS: NT Pro B Type Natriuretic Pept 7820 pg/mL (5-100)
[2021-07-07 11:25] LABS: Troponin I 0.095 ng/mL (0.000-0.034)
[2021-07-07] MEDS: AZELASTINE HCL NASAL 0.1% 137 MCG/SPR 30 ML BTL 2 SPRAY NASAL ×2 (11:41→18:09)
[2021-07-07] MEDS: FLUTICASONE PROPIONATE 0.05% NA SPR 16 GM BTL (*BKC) 2 SPRAY NASAL (11:41)
[2021-07-07] MEDS: REMDESIVIR 200 MG/NS 250 ML 200 MG/250 ML BAG 250 MG IVPB (11:41)
[2021-07-07 15:37] LABS: SARS-CoV-2 RNA PCR Positive
[2021-07-07] MEDS: MELATONIN 3 MG TABLET PO (21:15)
[2021-07-08] VITALS (11 sets, daily range): BP systolic 119–130; BP diastolic 60–78; PULSE 70–93; RESP 16–20; TEMP 35.9–36.6; O2SAT 95–99
[2021-07-08] MEDS: ALBUTEROL SULFATE (*SP) INHALER 2 PUFF INHALATION ×4 (02:24→22:07)
[2021-07-08 05:50] LABS: Basophils Percent Auto 0.1 % (0.2-1.2); Hematocrit 32.4 % (42.0-52.0); Hemoglobin 10.3 g/dL (14.0-18.0); Immature Granulocyte Absolute 0.09 K/mm3 (0.00-0.031); Immature Granulocyte Percent A 0.9 % (0-0.5); Lymphocytes Absolute Auto 0.69 K/mm3 (0.9-3.2); Lymphocytes Percent Auto 6.6 % (18.3-44.2); Mean Corpuscular HGB Conc 31.8 g/dl (32-36); Mean Corpuscular Hemoglobin 30.8 pg (26-34); Mean Platelet Volume 12.1 fl (7.4-10.4); Monocytes Absolute Auto 0.5 K/mm3 (0.1-0.6); Neutrophils Absolute Auto 9.1 K/mm3 (1.3-6.7); Neutrophils Percent Auto 87.4 % (45.5-73.1); Platelet Count Result 109 k/mm3 (150-375); Red Blood Count 3.34 M/mm3 (4.6-6.20); Red Cell Distribution Width 14.7 % (11.5-14.5); White Blood Count 10.5 K/mm3 (4.5-10.0)
[2021-07-08 05:52] LABS: INR 1.3
[2021-07-08 06:08] LABS: Alanine Aminotransferase 26 U/L (4-50); Albumin Level 2.7 g/dL (3.5-5.1); Alkaline Phosphatase 93 U/L (38-126); Anion Gap 8 mmol/L (8-16); Aspartate Amino Transferase 53 U/L (17-59); Blood Urea Nitrogen 21 mg/dL (9-20); Calcium 8.3 mg/dL (8.4-10.2); Carbon Dioxide 27 mmol/L (22-30); Chloride 99 mmol/L (98-107); Estimated CRCL calculation 99 ml/min; Estimated Glomerular Filt Rate > 60; Glucose 145 mg/dL (65-110); Lactate Dehydrogenase 730 U/L (313-618); Magnesium 2.4 mg/dL (1.6-2.3); Potassium 3.6 mmol/L (3.4-5.0); Sodium 134 mmol/L (137-145)
[2021-07-08 06:19] LABS: CRP 16.5 mg/dL (<1.0)
--- NOTE | 2021-07-08 08:30 | PM.IMPN ---
Progress Note: A&P Assessment and Plan (1) Pneumonia due to COVID-19 virus: Code(s): U07.1 - COVID-19; J12.82 - Pneumonia due to coronavirus disease 2019 Status: Acute Assessment and Plan: Tested positive on 07/04/2021 Saturation 84% upon arrival Supplemental O2 placed at 4 L per nasal cannula, wean to maintain saturations greater than 90% Chest x-ray shows bibasilar linear atelectasis CTA shows no PE, trace pleural effusions, emphysema, cirrhosis with portal hypertension, splenomegaly, small amount of ascites Start remdesivir and dexamethasone day 1 Ceftriaxone and azithromycin to cover atypical Anti-tussives for cough IS and Vahid therapy Monitor fluid status Albuterol scheduled Inflammatory markers: D-dimer 3.40, LDH 730, CRP 16.5, Ferritin 244 trend in the a.m. Isolation for droplet and contact precautions Lovenox 40 mg daily for DVT prophylaxis (2) Acute respiratory failure with hypoxia: Code(s): J96.01 - Acute respiratory failure with hypoxia Status: Acute Assessment and Plan: Saturation noted to be 84% upon arrival Blood gas noted to show respiratory alkalosis with hypoxia Supplemental oxygen to maintain saturations greater than 90% Trend SpO2 Manage fluid status CTA denies pulmonary embolism (3) Sepsis: Code(s): A41.9 - Sepsis, unspecified organism Status: Acute Assessment and Plan: Patient meets criteria with elevated white blood cell count of 19.2, lactic acid of 2.6, episodes of hypotension Repeat lactic is 2.1 Fluid resuscitation 80 Blood cultures NGTD Antibiotics started Source of infection pneumonia, UTI Trend white blood cell count Tailor antibiotics as indicated (4) Elevated d-dimer: Code(s): R79.89 - Other specified abnormal findings of blood chemistry Status: Acute Assessment and Plan: D-dimer 9.64, trending down 3.40 CT negative for PE Probably related to COVID Lovenox started Will get a right lower extremity Doppler with noted swelling (5) Elevated troponin: Code(s): R77.8 - Other specified abnormalities of plasma proteins Status: Acute Assessment and Plan: Troponin 0.220, 0.173 EKG does not note any ST elevation No noted chest pain today, complaints of intermittent chest pain over the last couple of days Cardiology consult thank you for your help BNP 7820 Lasix ordered Tele monitor (6) Thrombocytopenia: Code(s): D69.6 - Thrombocytopenia, unspecified Status: Acute Assessment and Plan: PLTs at 109 Know history Related to cirrhosis Trend labs (7) Fracture of right hip requiring operative repair: Code(s): S72.001A - Fracture of unspecified part of neck of right femur, initial encounter for closed fracture Status: Acute Assessment and Plan: S/P repair on 06/25/21 PT/OT Pain medications ordered (8) Urinary retention: Code(s): R33.9 - Retention of urine, unspecified Status: Acute Assessment and Plan: States that he does not feel that he is fully empting Post residual void, bladder scan PRN Start on finasteride Trend urine output Consider urinary catheter (9) Abdominal pain: Code(s): R10.9 - Unspecified abdominal pain Status: Acute Assessment and Plan: States sore and tender Could be related to ascites CTA shows small ascites KUB no acute process Consider ultrasound (10) Acute UTI: Code(s): N39.0 - Urinary tract infection, site not specified Status: Acute Assessment and Plan: Terri, 2+ blood, positive nitrites, 3+ leukocyte esterase, WBC >75, WBC clumps present, trace bacteria Ceftriaxone on board Could be related to some retention problems Culture found enterobacter cloasae complex await sensitivities monitor urine output monitor symptoms (11) CHF (congesti
--- NOTE | 2021-07-08 08:30 | P.PNIM_ITS ---
Progress Note: A&P Assessment and Plan (1) Pneumonia due to COVID-19 virus: Code(s): U07.1 - COVID-19; J12.82 - Pneumonia due to coronavirus disease 2019 Status: Acute Assessment and Plan: * Tested positive on 07/04/2021 * Saturation 84% upon arrival * Supplemental O2 placed at 4 L per nasal cannula, wean to maintain saturations greater than 90% * Chest x-ray shows bibasilar linear atelectasis * CTA shows no PE, trace pleural effusions, emphysema, cirrhosis with portal hypertension, splenomegaly, small amount of ascites * Start remdesivir and dexamethasone day 1 * Ceftriaxone and azithromycin to cover atypical * Anti-tussives for cough * IS and Vahid therapy * Monitor fluid status * Albuterol scheduled * Inflammatory markers: D-dimer 3.40, LDH 730, CRP 16.5, Ferritin 244 trend in the a.m. * Isolation for droplet and contact precautions * Lovenox 40 mg daily for DVT prophylaxis (2) Acute respiratory failure with hypoxia: Code(s): J96.01 - Acute respiratory failure with hypoxia Status: Acute Assessment and Plan: * Saturation noted to be 84% upon arrival * Blood gas noted to show respiratory alkalosis with hypoxia * Supplemental oxygen to maintain saturations greater than 90% * Trend SpO2 * Manage fluid status * CTA denies pulmonary embolism (3) Sepsis: Code(s): A41.9 - Sepsis, unspecified organism Status: Acute Assessment and Plan: * Patient meets criteria with elevated white blood cell count of 19.2, lactic acid of 2.6, episodes of hypotension * Repeat lactic is 2.1 * Fluid resuscitation 80 * Blood cultures NGTD * Antibiotics started * Source of infection pneumonia, UTI * Trend white blood cell count * Tailor antibiotics as indicated (4) Elevated d-dimer: Code(s): R79.89 - Other specified abnormal findings of blood chemistry Status: Acute Assessment and Plan: * D-dimer 9.64, trending down 3.40 * CT negative for PE * Probably related to COVID * Lovenox started * Will get a right lower extremity Doppler with noted swelling (5) Elevated troponin: Code(s): R77.8 - Other specified abnormalities of plasma proteins Status: Acute Assessment and Plan: * Troponin 0.220, 0.173 * EKG does not note any ST elevation * No noted chest pain today, complaints of intermittent chest pain over the last couple of days * Cardiology consult thank you for your help * BNP 7820 * Lasix ordered * Tele monitor (6) Thrombocytopenia: Code(s): D69.6 - Thrombocytopenia, unspecified Status: Acute Assessment and Plan: * PLTs at 109 * Know history * Related to cirrhosis * Trend labs (7) Fracture of right hip requiring operative repair: Code(s): S72.001A - Fracture of unspecified part of neck of right femur, initial encounter for closed fracture Status: Acute Assessment and Plan: * S/P repair on 06/25/21 * PT/OT * Pain medications ordered (8) Urinary retention: Code(s): R33.9 - Retention of urine, unspecified Status: Acute Assessment and Plan: * States that he does not feel that he is fully empting * Post residual void, bladder scan PRN * Start on finasteride * Trend urine output * Consider urinary catheter (9) Abdominal pain: Code(s): R10.9 - Unspecified abdominal pain Status: Ac
[2021-07-08] MEDS: CHOLECALCIFEROL 1,000 UNITS TABLET 2000 UNITS PO (09:18)
[2021-07-08] MEDS: LORATADINE 10 MG TABLET PO (09:20)
[2021-07-08] MEDS: MIRABEGRON 25 MG ER TABLET PO (09:20)
[2021-07-08] MEDS: ESCITALOPRAM OXALATE 10 MG TABLET 20 MG PO (09:20)
[2021-07-08] MEDS: REMDESIVIR 100 MG/NS 250 ML 100 MG/250 ML BAG 250 MG IVPB (09:20)
[2021-07-08] MEDS: HYDROcodone/acetaminophen (*CRX) 5-325 MG TABLET 1 TAB PO ×2 (09:21→20:33)
[2021-07-08] MEDS: FUROSEMIDE INJ 40 MG/4 ML VIAL IV PUSH ×2 (09:27→18:45)
[2021-07-08] MEDS: methylPHENIDATE HCL (*CRX) 5 MG TABLET PO ×2 (09:27→18:45)
[2021-07-08] MEDS: FLUTICASONE PROPIONATE 0.05% NA SPR 16 GM BTL (*BKC) 2 SPRAY NASAL (09:27)
[2021-07-08] MEDS: AZELASTINE HCL NASAL 0.1% 137 MCG/SPR 30 ML BTL 2 SPRAY NASAL ×2 (09:27→18:45)
[2021-07-08] MEDS: ENOXAPARIN 40 MG/0.4 ML SYRINGE SUB-Q (13:32)
[2021-07-08] MEDS: FINASTERIDE 5 MG TABLET PO (18:45)
[2021-07-08] MEDS: MELATONIN 3 MG TABLET PO (20:35)
[2021-07-09] VITALS (7 sets, daily range): BP systolic 114–152; BP diastolic 55–81; PULSE 66–126; RESP 18–20; TEMP 36.1–36.6; O2SAT 96–97
[2021-07-09] MEDS: ALBUTEROL SULFATE (*SP) INHALER 2 PUFF INHALATION ×4 (02:13→20:02)
[2021-07-09 05:54] LABS: Hematocrit 35.6 % (42.0-52.0); Hemoglobin 11.6 g/dL (14.0-18.0); Immature Granulocyte Absolute 0.08 K/mm3 (0.00-0.031); Immature Granulocyte Percent A 0.8 % (0-0.5); Immature Platelet Fraction Pct 8.5 % (0.9-11.2); Lymphocytes Absolute Auto 0.65 K/mm3 (0.9-3.2); Lymphocytes Percent Auto 6.6 % (18.3-44.2); Mean Corpuscular HGB Conc 32.6 g/dl (32-36); Mean Corpuscular Hemoglobin 30.5 pg (26-34); Mean Corpuscular Volume 93.7 fl (80-100); Mean Platelet Volume 11.5 fl (7.4-10.4); Monocytes Absolute Auto 0.5 K/mm3 (0.1-0.6); Monocytes Percent Auto 4.7 % (2.6-8.5); Neutrophils Absolute Auto 8.6 K/mm3 (1.3-6.7); Neutrophils Percent Auto 87.9 % (45.5-73.1); Platelet Count Result 134 k/mm3 (150-375); Red Cell Distribution Width 14.6 % (11.5-14.5); White Blood Count 9.8 K/mm3 (4.5-10.0)
[2021-07-09 06:02] LABS: INR 1.2; Prothrombin Time 14.9 Seconds (11.1-14.7)
[2021-07-09 06:33] LABS: Alanine Aminotransferase 29 U/L (4-50); Albumin Level 3.2 g/dL (3.5-5.1); Alkaline Phosphatase 106 U/L (38-126); Anion Gap 10 mmol/L (8-16); Aspartate Amino Transferase 47 U/L (17-59); Bilirubin,Total 0.9 mg/dL (0.2-1.3); Blood Urea Nitrogen 21 mg/dL (9-20); CRP 11.1 mg/dL (<1.0); Calcium 8.6 mg/dL (8.4-10.2); Carbon Dioxide 30 mmol/L (22-30); Chloride 94 mmol/L (98-107); Estimated CRCL calculation 99 ml/min; Estimated Glomerular Filt Rate > 60; Glucose 156 mg/dL (65-110); Lactate Dehydrogenase 726 U/L (313-618); Magnesium 2.3 mg/dL (1.6-2.3); Potassium 3.3 mmol/L (3.4-5.0); Sodium 134 mmol/L (137-145)
--- NOTE | 2021-07-09 07:45 | P.PNIM_ITS ---
Progress Note: A&P Assessment and Plan (1) Pneumonia due to COVID-19 virus: Code(s): U07.1 - COVID-19; J12.82 - Pneumonia due to coronavirus disease 2019 Status: Acute Assessment and Plan: * Tested positive on 07/04/2021 * Saturation 84% upon arrival * Supplemental O2 placed at 4 L per nasal cannula, wean to maintain saturations greater than 90% * Chest x-ray shows bibasilar linear atelectasis * CTA shows no PE, trace pleural effusions, emphysema, cirrhosis with portal hypertension, splenomegaly, small amount of ascites * Start remdesivir and dexamethasone day 3 * Ceftriaxone and azithromycin to cover atypical * Anti-tussives for cough * IS and Vahid therapy * Monitor fluid status * Albuterol scheduled * Inflammatory markers: D-dimer 2.70, LDH 726, CRP 11.1, Ferritin 515 trend in the a.m. * Isolation for droplet and contact precautions * Lovenox 40 mg daily for DVT prophylaxis (2) Acute respiratory failure with hypoxia: Code(s): J96.01 - Acute respiratory failure with hypoxia Status: Acute Assessment and Plan: * Saturation noted to be 84% upon arrival * Blood gas noted to show respiratory alkalosis with hypoxia * Supplemental oxygen to maintain saturations greater than 90% * Trend SpO2 * Manage fluid status * CTA denies pulmonary embolism (3) Sepsis: Code(s): A41.9 - Sepsis, unspecified organism Status: Acute Assessment and Plan: * Patient meets criteria with elevated white blood cell count of 19.2, lactic acid of 2.6, episodes of hypotension * Repeat lactic is 2.1 * Fluid resuscitation 80 * Blood cultures NGTD * Antibiotics started * Source of infection pneumonia, UTI * Trend white blood cell count * Tailor antibiotics as indicated (4) Elevated d-dimer: Code(s): R79.89 - Other specified abnormal findings of blood chemistry Status: Acute Assessment and Plan: * D-dimer 9.64, trending down 2.70 * CT negative for PE * Probably related to COVID * Lovenox started * Will get a right lower extremity Doppler with noted swelling (5) Elevated troponin: Code(s): R77.8 - Other specified abnormalities of plasma proteins Status: Acute Assessment and Plan: * Troponin 0.220, 0.173 * EKG does not note any ST elevation * No noted chest pain today, complaints of intermittent chest pain over the last couple of days * Cardiology consult thank you for your help * BNP 7820 * Lasix ordered * Tele monitor (6) Thrombocytopenia: Code(s): D69.6 - Thrombocytopenia, unspecified Status: Acute Assessment and Plan: * PLTs at 134 * Know history * Related to cirrhosis * Trend labs (7) Fracture of right hip requiring operative repair: Code(s): S72.001A - Fracture of unspecified part of neck of right femur, initial encounter for closed fracture Status: Acute Assessment and Plan: * S/P repair on 06/25/21 * PT/OT * Pain medications ordered (8) Urinary retention: Code(s): R33.9 - Retention of urine, unspecified Status: Acute Assessment and Plan: * States that he does not feel that he is fully empting * Post residual void, bladder scan PRN * Start on finasteride * Trend urine output * Consider urinary catheter (9) Abdominal pain: Code(s): R10.9 - Unspecified abdominal pain Status: Ac
--- NOTE | 2021-07-09 07:45 | PM.IMPN ---
Progress Note: A&P Assessment and Plan (1) Pneumonia due to COVID-19 virus: Code(s): U07.1 - COVID-19; J12.82 - Pneumonia due to coronavirus disease 2019 Status: Acute Assessment and Plan: Tested positive on 07/04/2021 Saturation 84% upon arrival Supplemental O2 placed at 4 L per nasal cannula, wean to maintain saturations greater than 90% Chest x-ray shows bibasilar linear atelectasis CTA shows no PE, trace pleural effusions, emphysema, cirrhosis with portal hypertension, splenomegaly, small amount of ascites Start remdesivir and dexamethasone day 3 Ceftriaxone and azithromycin to cover atypical Anti-tussives for cough IS and Vahid therapy Monitor fluid status Albuterol scheduled Inflammatory markers: D-dimer 2.70, LDH 726, CRP 11.1, Ferritin 515 trend in the a.m. Isolation for droplet and contact precautions Lovenox 40 mg daily for DVT prophylaxis (2) Acute respiratory failure with hypoxia: Code(s): J96.01 - Acute respiratory failure with hypoxia Status: Acute Assessment and Plan: Saturation noted to be 84% upon arrival Blood gas noted to show respiratory alkalosis with hypoxia Supplemental oxygen to maintain saturations greater than 90% Trend SpO2 Manage fluid status CTA denies pulmonary embolism (3) Sepsis: Code(s): A41.9 - Sepsis, unspecified organism Status: Acute Assessment and Plan: Patient meets criteria with elevated white blood cell count of 19.2, lactic acid of 2.6, episodes of hypotension Repeat lactic is 2.1 Fluid resuscitation 80 Blood cultures NGTD Antibiotics started Source of infection pneumonia, UTI Trend white blood cell count Tailor antibiotics as indicated (4) Elevated d-dimer: Code(s): R79.89 - Other specified abnormal findings of blood chemistry Status: Acute Assessment and Plan: D-dimer 9.64, trending down 2.70 CT negative for PE Probably related to COVID Lovenox started Will get a right lower extremity Doppler with noted swelling (5) Elevated troponin: Code(s): R77.8 - Other specified abnormalities of plasma proteins Status: Acute Assessment and Plan: Troponin 0.220, 0.173 EKG does not note any ST elevation No noted chest pain today, complaints of intermittent chest pain over the last couple of days Cardiology consult thank you for your help BNP 7820 Lasix ordered Tele monitor (6) Thrombocytopenia: Code(s): D69.6 - Thrombocytopenia, unspecified Status: Acute Assessment and Plan: PLTs at 134 Know history Related to cirrhosis Trend labs (7) Fracture of right hip requiring operative repair: Code(s): S72.001A - Fracture of unspecified part of neck of right femur, initial encounter for closed fracture Status: Acute Assessment and Plan: S/P repair on 06/25/21 PT/OT Pain medications ordered (8) Urinary retention: Code(s): R33.9 - Retention of urine, unspecified Status: Acute Assessment and Plan: States that he does not feel that he is fully empting Post residual void, bladder scan PRN Start on finasteride Trend urine output Consider urinary catheter (9) Abdominal pain: Code(s): R10.9 - Unspecified abdominal pain Status: Acute Assessment and Plan: States sore and tender Could be related to ascites CTA shows small ascites KUB no acute process Consider ultrasound (10) Acute UTI: Code(s): N39.0 - Urinary tract infection, site not specified Status: Acute Assessment and Plan: Terri, 2+ blood, positive nitrites, 3+ leukocyte esterase, WBC >75, WBC clumps present, trace bacteria Ceftriaxone on board Could be related to some retention problems Culture found enterobacter cloasae complex await sensitivities monitor urine output monitor symptoms (11) CHF (congesti
[2021-07-09] MEDS: REMDESIVIR 100 MG/NS 250 ML 100 MG/250 ML BAG 250 MG IVPB (10:37)
[2021-07-09] MEDS: methylPHENIDATE HCL (*CRX) 5 MG TABLET PO ×2 (10:40→17:46)
[2021-07-09] MEDS: PROPRANOLOL HCL 60 MG CAPSULE CR PO (10:40)
[2021-07-09] MEDS: SENNA/DOCUSATE SODIUM TABLET 2 TAB PO ×2 (10:40→17:48)
[2021-07-09] MEDS: FUROSEMIDE INJ 40 MG/4 ML VIAL IV PUSH ×2 (10:41→17:46)
[2021-07-09] MEDS: LORATADINE 10 MG TABLET PO (10:46)
[2021-07-09] MEDS: HYDROcodone/acetaminophen (*CRX) 5-325 MG TABLET 1 TAB PO ×2 (10:46→17:46)
[2021-07-09] MEDS: ENOXAPARIN 40 MG/0.4 ML SYRINGE SUB-Q (10:46)
[2021-07-09] MEDS: FLUTICASONE PROPIONATE 0.05% NA SPR 16 GM BTL (*BKC) 2 SPRAY NASAL (10:47)
[2021-07-09] MEDS: CHOLECALCIFEROL 1,000 UNITS TABLET 2000 UNITS PO (10:47)
[2021-07-09] MEDS: ESCITALOPRAM OXALATE 10 MG TABLET 20 MG PO (10:47)
[2021-07-09] MEDS: AZELASTINE HCL NASAL 0.1% 137 MCG/SPR 30 ML BTL 2 SPRAY NASAL ×2 (10:48→17:48)
[2021-07-09] MEDS: POTASSIUM CHLORIDE 20 MEQ TABLET 40 MEQ PO (11:18)
[2021-07-09] MEDS: FINASTERIDE 5 MG TABLET PO (11:18)
[2021-07-09 13:37] LABS: INR 1.3; Prothrombin Time 15.5 Seconds (11.1-14.7)
[2021-07-09 13:38] LABS: Partial Thromboplastin Time 35.1 SECONDS (22.3-36.8)
[2021-07-09 16:19] LABS: Appearance Peritoneal Fluid Hazy (Clear); Source Peritoneal Fluid Peritoneal Fluid
[2021-07-09 16:20] LABS: Color Peritoneal Fluid Yellow (Colorless)
[2021-07-09 16:23] LABS: Nucleated Cells Peritoneal Flu 377 /uL (0-500); RBC Peritoneal Fluid 296 /uL (0-100000)
[2021-07-09 16:30] LABS: Lymphocytes Peritoneal Fluid 8 %; Macrophages Peritoneal Fluid 6 %; Monocytes Peritoneal Fluid 11 %; Neutrophils Peritoneal Fluid 75 % (0-25)
[2021-07-09] MEDS: ALBUMIN HUMAN 25% 12.5 GM/50ML 50 ML IVPB (17:45)
--- NOTE | 2021-07-09 18:27 | PC.NURSE ---
This patient, Alex Fish, was received from [[facility]] on 07/09/21 at 1820. Patient/family oriented to unit policies and routines
--- NOTE | 2021-07-09 18:28 | PC.NURSE ---
This patient, Alex Fish, was transferred to [facility] on 07/09/21 at 1820. Personal belongings sent with patient. Report given to Susy SMITH. Appropriate documentation sent with patient.
[2021-07-09] MEDS: MELATONIN 3 MG TABLET PO (22:47)
[2021-07-10] VITALS (9 sets, daily range): BP systolic 98–132; BP diastolic 46–70; PULSE 60–65; RESP 16–18; TEMP 36.3–37.2; O2SAT 92–98
--- NOTE | 2021-07-10 04:07 | PCRCNOTE ---
Window of time for administration has passed. See next scheduled administration.
[2021-07-10] MEDS: SENNA/DOCUSATE SODIUM TABLET 2 TAB PO ×2 (09:21→17:47)
[2021-07-10] MEDS: LORATADINE 10 MG TABLET PO (09:22)
[2021-07-10] MEDS: PROPRANOLOL HCL 60 MG CAPSULE CR PO (09:22)
[2021-07-10] MEDS: ENOXAPARIN 40 MG/0.4 ML SYRINGE SUB-Q (09:22)
[2021-07-10] MEDS: ESCITALOPRAM OXALATE 10 MG TABLET 20 MG PO (09:23)
[2021-07-10] MEDS: CHOLECALCIFEROL 1,000 UNITS TABLET 2000 UNITS PO (09:23)
[2021-07-10] MEDS: FLUTICASONE PROPIONATE 0.05% NA SPR 16 GM BTL (*BKC) 2 SPRAY NASAL (09:24)
[2021-07-10] MEDS: FUROSEMIDE INJ 40 MG/4 ML VIAL IV PUSH ×2 (09:24→17:48)
[2021-07-10] MEDS: FINASTERIDE 5 MG TABLET PO (09:24)
[2021-07-10] MEDS: AZELASTINE HCL NASAL 0.1% 137 MCG/SPR 30 ML BTL 2 SPRAY NASAL ×2 (09:25→17:47)
[2021-07-10] MEDS: methylPHENIDATE HCL (*CRX) 5 MG TABLET PO ×2 (09:28→17:47)
--- NOTE | 2021-07-10 09:30 | PM.IMPN ---
Progress Note: A&P Assessment and Plan (1) Pneumonia due to COVID-19 virus: Code(s): U07.1 - COVID-19; J12.82 - Pneumonia due to coronavirus disease 2019 Status: Acute Assessment and Plan: Tested positive on 07/04/2021 Saturation 84% upon arrival Supplemental O2 ordered was able to wean to room air, wean to maintain saturations greater than 90% Chest x-ray shows bibasilar linear atelectasis CTA shows no PE, trace pleural effusions, emphysema, cirrhosis with portal hypertension, splenomegaly, small amount of ascites Start remdesivir and dexamethasone day 4 Anti-tussives for cough IS and Vahid therapy Monitor fluid status Albuterol scheduled Inflammatory markers: D-dimer 2.70, LDH 726, CRP 11.1, Ferritin 515 07/09/21 Isolation for droplet and contact precautions Lovenox 40 mg daily for DVT prophylaxis (2) Acute respiratory failure with hypoxia: Code(s): J96.01 - Acute respiratory failure with hypoxia Status: Acute Assessment and Plan: Saturation noted to be 84% upon arrival Blood gas noted to show respiratory alkalosis with hypoxia Supplemental oxygen to maintain saturations greater than 90% Trend SpO2 Manage fluid status CTA denies pulmonary embolism (3) Sepsis: Code(s): A41.9 - Sepsis, unspecified organism Status: Acute Assessment and Plan: Patient meets criteria with elevated white blood cell count of 19.2, lactic acid of 2.6, episodes of hypotension Repeat lactic is 2.1 Fluid resuscitation 80 Blood cultures NGTD Antibiotics started Source of infection pneumonia, UTI Trend white blood cell count Tailor antibiotics as indicated (4) Elevated d-dimer: Code(s): R79.89 - Other specified abnormal findings of blood chemistry Status: Acute Assessment and Plan: D-dimer 9.64, trending down 2.70 CT negative for PE Probably related to COVID Lovenox started Will get a right lower extremity Doppler with noted swelling (5) Elevated troponin: Code(s): R77.8 - Other specified abnormalities of plasma proteins Status: Acute Assessment and Plan: Troponin 0.220, 0.173 EKG does not note any ST elevation No noted chest pain today, complaints of intermittent chest pain over the last couple of days Cardiology consult thank you for your help BNP 7820 Lasix ordered Tele monitor (6) Thrombocytopenia: Code(s): D69.6 - Thrombocytopenia, unspecified Status: Acute Assessment and Plan: PLTs at 148 Known history Related to cirrhosis Trend labs (7) Fracture of right hip requiring operative repair: Code(s): S72.001A - Fracture of unspecified part of neck of right femur, initial encounter for closed fracture Status: Acute Assessment and Plan: S/P repair on 06/25/21 PT/OT Pain medications ordered (8) Urinary retention: Code(s): R33.9 - Retention of urine, unspecified Status: Acute Assessment and Plan: States that he does not feel that he is fully empting Post residual void, bladder scan PRN Start on finasteride Trend urine output Consider urinary catheter (9) Abdominal pain: Code(s): R10.9 - Unspecified abdominal pain Status: Acute Assessment and Plan: States sore and tender Could be related to ascites CTA shows small ascites KUB no acute process Consider ultrasound (10) Acute UTI: Code(s): N39.0 - Urinary tract infection, site not specified Status: Acute Assessment and Plan: Terri, 2+ blood, positive nitrites, 3+ leukocyte esterase, WBC >75, WBC clumps present, trace bacteria Ceftriaxone on board Could be related to some retention problems Culture found enterobacter cloasae complex sensitivities includ cipro will start that for enteritis monitor urine output monitor symptoms (11) CHF (congestive heart failure
--- NOTE | 2021-07-10 09:30 | P.PNIM_ITS ---
Progress Note: A&P Assessment and Plan (1) Pneumonia due to COVID-19 virus: Code(s): U07.1 - COVID-19; J12.82 - Pneumonia due to coronavirus disease 2018 Status: Acute Assessment and Plan: * Tested positive on 07/04/2021 * Saturation 84% upon arrival * Supplemental O2 ordered was able to wean to room air, wean to maintain saturations greater than 90% * Chest x-ray shows bibasilar linear atelectasis * CTA shows no PE, trace pleural effusions, emphysema, cirrhosis with portal hypertension, splenomegaly, small amount of ascites * Start remdesivir and dexamethasone day 4 * Anti-tussives for cough * IS and Vahid therapy * Monitor fluid status * Albuterol scheduled * Inflammatory markers: D-dimer 2.70, LDH 726, CRP 11.1, Ferritin 515 07/09/21 * Isolation for droplet and contact precautions * Lovenox 40 mg daily for DVT prophylaxis (2) Acute respiratory failure with hypoxia: Code(s): J96.01 - Acute respiratory failure with hypoxia Status: Acute Assessment and Plan: * Saturation noted to be 84% upon arrival * Blood gas noted to show respiratory alkalosis with hypoxia * Supplemental oxygen to maintain saturations greater than 90% * Trend SpO2 * Manage fluid status * CTA denies pulmonary embolism (3) Sepsis: Code(s): A41.9 - Sepsis, unspecified organism Status: Acute Assessment and Plan: * Patient meets criteria with elevated white blood cell count of 19.2, lactic acid of 2.6, episodes of hypotension * Repeat lactic is 2.1 * Fluid resuscitation 80 * Blood cultures NGTD * Antibiotics started * Source of infection pneumonia, UTI * Trend white blood cell count * Tailor antibiotics as indicated (4) Elevated d-dimer: Code(s): R79.89 - Other specified abnormal findings of blood chemistry Status: Acute Assessment and Plan: * D-dimer 9.64, trending down 2.70 * CT negative for PE * Probably related to COVID * Lovenox started * Will get a right lower extremity Doppler with noted swelling (5) Elevated troponin: Code(s): R77.8 - Other specified abnormalities of plasma proteins Status: Acute Assessment and Plan: * Troponin 0.220, 0.173 * EKG does not note any ST elevation * No noted chest pain today, complaints of intermittent chest pain over the last couple of days * Cardiology consult thank you for your help * BNP 7820 * Lasix ordered * Tele monitor (6) Thrombocytopenia: Code(s): D69.6 - Thrombocytopenia, unspecified Status: Acute Assessment and Plan: * PLTs at 148 * Known history * Related to cirrhosis * Trend labs (7) Fracture of right hip requiring operative repair: Code(s): S72.001A - Fracture of unspecified part of neck of right femur, initial encounter for closed fracture Status: Acute Assessment and Plan: * S/P repair on 06/25/21 * PT/OT * Pain medications ordered (8) Urinary retention: Code(s): R33.9 - Retention of urine, unspecified Status: Acute Assessment and Plan: * States that he does not feel that he is fully empting * Post residual void, bladder scan PRN * Start on finasteride * Trend urine output * Consider urinary catheter (9) Abdominal pain: Code(s): R10.9 - Unspecified abdominal pain Status: Acute Assessment and Plan: * States sore and tend
[2021-07-10] MEDS: HYDROcodone/acetaminophen (*CRX) 5-325 MG TABLET 1 TAB PO ×2 (09:45→21:22)
[2021-07-10] MEDS: ALBUTEROL SULFATE (*SP) INHALER 2 PUFF INHALATION ×3 (09:45→19:59)
[2021-07-10 09:49] LABS: Basophils Percent Auto 0.1 % (0.2-1.2); Hematocrit 34.8 % (42.0-52.0); Hemoglobin 11.2 g/dL (14.0-18.0); Immature Granulocyte Absolute 0.09 K/mm3 (0.00-0.031); Immature Granulocyte Percent A 1.1 % (0-0.5); Lymphocytes Absolute Auto 0.81 K/mm3 (0.9-3.2); Lymphocytes Percent Auto 9.6 % (18.3-44.2); Mean Corpuscular HGB Conc 32.2 g/dl (32-36); Mean Corpuscular Hemoglobin 30.2 pg (26-34); Mean Corpuscular Volume 93.8 fl (80-100); Mean Platelet Volume 11.7 fl (7.4-10.4); Monocytes Absolute Auto 0.5 K/mm3 (0.1-0.6); Monocytes Percent Auto 6.4 % (2.6-8.5); Neutrophils Percent Auto 82.8 % (45.5-73.1); Platelet Count Result 148 k/mm3 (150-375); Red Blood Count 3.71 M/mm3 (4.6-6.20); Red Cell Distribution Width 14.8 % (11.5-14.5); White Blood Count 8.5 K/mm3 (4.5-10.0)
[2021-07-10 10:09] LABS: INR 1.3; Prothrombin Time 15.7 Seconds (11.1-14.7)
[2021-07-10 10:11] LABS: Alanine Aminotransferase 29 U/L (4-50); Alkaline Phosphatase 94 U/L (38-126); Anion Gap 9 mmol/L (8-16); Aspartate Amino Transferase 42 U/L (17-59); Bilirubin,Total 0.8 mg/dL (0.2-1.3); Blood Urea Nitrogen 23 mg/dL (9-20); Calcium 8.4 mg/dL (8.4-10.2); Carbon Dioxide 27 mmol/L (22-30); Chloride 98 mmol/L (98-107); Estimated CRCL calculation 77 ml/min; Estimated Glomerular Filt Rate > 60; Glucose 124 mg/dL (65-110); Magnesium 2.3 mg/dL (1.6-2.3); Potassium 3.7 mmol/L (3.4-5.0); Sodium 134 mmol/L (137-145)
[2021-07-10] MEDS: REMDESIVIR 100 MG/NS 250 ML 100 MG/250 ML BAG 250 MG IVPB (11:36)
[2021-07-10] MEDS: metroNIDAZOLE 250 MG TABLET 500 MG PO ×2 (13:59→17:46)
[2021-07-10] MEDS: CIPROFLOXACIN 500 MG TAB PO ×2 (13:59→21:16)
[2021-07-10] MEDS: MELATONIN 3 MG TABLET PO (21:16)
[2021-07-11] MEDS: metroNIDAZOLE 250 MG TABLET 500 MG PO ×4 (00:15→17:26)
[2021-07-11 02:56] VITALS: PULSE 56
[2021-07-11] MEDS: ALBUTEROL SULFATE (*SP) INHALER 2 PUFF INHALATION ×4 (02:56→21:30)
[2021-07-11 04:00] VITALS: BP 117/56; PULSE 58; RESP 18; TEMP 36.9; O2SAT 94
[2021-07-11] MEDS: HYDROcodone/acetaminophen (*CRX) 5-325 MG TABLET 1 TAB PO ×2 (06:34→17:24)
[2021-07-11 07:37] LABS: INR 1.3; Prothrombin Time 15.5 Seconds (11.1-14.7)
[2021-07-11 07:38] LABS: Alanine Aminotransferase 28 U/L (4-50); Estimated CRCL calculation 69 ml/min; Estimated Glomerular Filt Rate > 60
[2021-07-11 08:19] VITALS: PULSE 64; O2SAT 96
[2021-07-11] MEDS: CIPROFLOXACIN 500 MG TAB PO ×2 (08:47→20:28)
[2021-07-11] MEDS: ESCITALOPRAM OXALATE 10 MG TABLET 20 MG PO (08:47)
[2021-07-11] MEDS: FINASTERIDE 5 MG TABLET PO (08:47)
[2021-07-11] MEDS: SENNA/DOCUSATE SODIUM TABLET 2 TAB PO ×2 (08:47→17:27)
[2021-07-11] MEDS: LORATADINE 10 MG TABLET PO (08:47)
[2021-07-11] MEDS: PROPRANOLOL HCL 60 MG CAPSULE CR PO (08:47)
[2021-07-11] MEDS: CHOLECALCIFEROL 1,000 UNITS TABLET 2000 UNITS PO (08:48)
[2021-07-11] MEDS: AZELASTINE HCL NASAL 0.1% 137 MCG/SPR 30 ML BTL 2 SPRAY NASAL ×2 (08:49→17:26)
[2021-07-11] MEDS: FUROSEMIDE INJ 40 MG/4 ML VIAL IV PUSH ×2 (08:49→17:26)
[2021-07-11] MEDS: ENOXAPARIN 40 MG/0.4 ML SYRINGE SUB-Q (08:49)
[2021-07-11] MEDS: FLUTICASONE PROPIONATE 0.05% NA SPR 16 GM BTL (*BKC) 2 SPRAY NASAL (08:50)
[2021-07-11] MEDS: methylPHENIDATE HCL (*CRX) 5 MG TABLET PO ×2 (08:51→17:25)
[2021-07-11 09:23] VITALS: BP 119/75; PULSE 62; RESP 18; TEMP 35.7; O2SAT 95
--- NOTE | 2021-07-11 09:45 | P.PNIM_ITS ---
Progress Note: A&P Assessment and Plan (1) Pneumonia due to COVID-19 virus: Code(s): U07.1 - COVID-19; J12.82 - Pneumonia due to coronavirus disease 2019 Status: Acute Assessment and Plan: * Tested positive on 07/04/2021 * Saturation 84% upon arrival * Supplemental O2 ordered was able to wean to room air, wean to maintain saturations greater than 90% * Chest x-ray shows bibasilar linear atelectasis * CTA shows no PE, trace pleural effusions, emphysema, cirrhosis with portal hypertension, splenomegaly, small amount of ascites * Start remdesivir and dexamethasone day 5 * Anti-tussives for cough * IS and Vahid therapy * Monitor fluid status * Albuterol scheduled * Inflammatory markers: D-dimer 2.70, LDH 726, CRP 11.1, Ferritin 515 07/09/21 * Isolation for droplet and contact precautions * Lovenox 40 mg daily for DVT prophylaxis (2) Elevated d-dimer: Code(s): R79.89 - Other specified abnormal findings of blood chemistry Status: Acute Assessment and Plan: * D-dimer 9.64, trending down 2.70 * CT negative for PE * Probably related to COVID * Lovenox started * Will get a right lower extremity Doppler with noted swelling (3) Elevated troponin: Code(s): R77.8 - Other specified abnormalities of plasma proteins Status: Acute Assessment and Plan: * Troponin 0.220, 0.173 * EKG does not note any ST elevation * No noted chest pain today, complaints of intermittent chest pain over the last couple of days * Cardiology consult thank you for your help * BNP 7820 * Lasix ordered * Tele monitor (4) Thrombocytopenia: Code(s): D69.6 - Thrombocytopenia, unspecified Status: Acute Assessment and Plan: * PLTs at 137 * Known history * Related to cirrhosis * Trend labs (5) Fracture of right hip requiring operative repair: Code(s): S72.001A - Fracture of unspecified part of neck of right femur, initial encounter for closed fracture Status: Acute Assessment and Plan: * S/P repair on 06/25/21 * PT/OT * Pain medications ordered (6) Urinary retention: Code(s): R33.9 - Retention of urine, unspecified Status: Acute Assessment and Plan: * States that he does not feel that he is fully empting * Post residual void, bladder scan PRN * Start on finasteride * Trend urine output * Consider urinary catheter (7) Abdominal pain: Code(s): R10.9 - Unspecified abdominal pain Status: Acute Assessment and Plan: * States sore and tender * Paracentesis was performed * KUB ordered * CTA shows small ascites * Consider ultrasound (8) Acute UTI: Code(s): N39.0 - Urinary tract infection, site not specified Status: Acute Assessment and Plan: * Terri, 2+ blood, positive nitrites, 3+ leukocyte esterase, WBC >75, WBC clumps present, trace bacteria * Ceftriaxone on board * Could be related to some retention problems * Culture found enterobacter cloasae complex * sensitivities includ cipro will start that for enteritis * monitor urine output * monitor symptoms (9) CHF (congestive heart failure): Code(s): I50.9 - Heart failure, unspecified Status: Acute Assessment and Plan: * 3-4+ pitting edema on right lower leg, getting better * Echo grade 2 DD and EF of 65-70% * CHF exacerbation of Diastolic dysfunction * BP is labil
--- NOTE | 2021-07-11 09:45 | PM.IMPN ---
Progress Note: A&P Assessment and Plan (1) Pneumonia due to COVID-19 virus: Code(s): U07.1 - COVID-19; J12.82 - Pneumonia due to coronavirus disease 2019 Status: Acute Assessment and Plan: Tested positive on 07/04/2021 Saturation 84% upon arrival Supplemental O2 ordered was able to wean to room air, wean to maintain saturations greater than 90% Chest x-ray shows bibasilar linear atelectasis CTA shows no PE, trace pleural effusions, emphysema, cirrhosis with portal hypertension, splenomegaly, small amount of ascites Start remdesivir and dexamethasone day 5 Anti-tussives for cough IS and Vahid therapy Monitor fluid status Albuterol scheduled Inflammatory markers: D-dimer 2.70, LDH 726, CRP 11.1, Ferritin 515 07/09/21 Isolation for droplet and contact precautions Lovenox 40 mg daily for DVT prophylaxis (2) Elevated d-dimer: Code(s): R79.89 - Other specified abnormal findings of blood chemistry Status: Acute Assessment and Plan: D-dimer 9.64, trending down 2.70 CT negative for PE Probably related to COVID Lovenox started Will get a right lower extremity Doppler with noted swelling (3) Elevated troponin: Code(s): R77.8 - Other specified abnormalities of plasma proteins Status: Acute Assessment and Plan: Troponin 0.220, 0.173 EKG does not note any ST elevation No noted chest pain today, complaints of intermittent chest pain over the last couple of days Cardiology consult thank you for your help BNP 7820 Lasix ordered Tele monitor (4) Thrombocytopenia: Code(s): D69.6 - Thrombocytopenia, unspecified Status: Acute Assessment and Plan: PLTs at 137 Known history Related to cirrhosis Trend labs (5) Fracture of right hip requiring operative repair: Code(s): S72.001A - Fracture of unspecified part of neck of right femur, initial encounter for closed fracture Status: Acute Assessment and Plan: S/P repair on 06/25/21 PT/OT Pain medications ordered (6) Urinary retention: Code(s): R33.9 - Retention of urine, unspecified Status: Acute Assessment and Plan: States that he does not feel that he is fully empting Post residual void, bladder scan PRN Start on finasteride Trend urine output Consider urinary catheter (7) Abdominal pain: Code(s): R10.9 - Unspecified abdominal pain Status: Acute Assessment and Plan: States sore and tender Paracentesis was performed KUB ordered CTA shows small ascites Consider ultrasound (8) Acute UTI: Code(s): N39.0 - Urinary tract infection, site not specified Status: Acute Assessment and Plan: Terri, 2+ blood, positive nitrites, 3+ leukocyte esterase, WBC >75, WBC clumps present, trace bacteria Ceftriaxone on board Could be related to some retention problems Culture found enterobacter cloasae complex sensitivities includ cipro will start that for enteritis monitor urine output monitor symptoms (9) CHF (congestive heart failure): Code(s): I50.9 - Heart failure, unspecified Status: Acute Assessment and Plan: 3-4+ pitting edema on right lower leg, getting better Echo grade 2 DD and EF of 65-70% CHF exacerbation of Diastolic dysfunction BP is labile, so held propanolol for now Albumin is 2.9, consider replacement with lasix to see if the fluid comes off Lasix 40mg IV BID Limit salt intake Strict I&Os daily weights Walt marin (10) Ascites: Code(s): R18.8 - Other ascites Status: Acute Assessment and Plan: Found on the CT Paracentesis ordered 1.5L off Albumin x 1 ordered (11) Enteritis: Code(s): K52.9 - Noninfective gastroenteritis and colitis, unspecified Status: Acute Assessment and Plan: Seen on the CT Sensitivities indicate cipro is good for UTI as w
[2021-07-11] MEDS: REMDESIVIR 100 MG/NS 250 ML 100 MG/250 ML BAG 250 MG IVPB (10:28)
[2021-07-11 11:07] LABS: Basophils Percent Auto 0.2 % (0.2-1.2); Hematocrit 35.6 % (42.0-52.0); Hemoglobin 11.5 g/dL (14.0-18.0); Immature Granulocyte Absolute 0.06 K/mm3 (0.00-0.031); Immature Granulocyte Percent A 0.9 % (0-0.5); Immature Platelet Fraction Pct 8.4 % (0.9-11.2); Lymphocytes Absolute Auto 0.72 K/mm3 (0.9-3.2); Lymphocytes Percent Auto 11.2 % (18.3-44.2); Mean Corpuscular HGB Conc 32.3 g/dl (32-36); Mean Corpuscular Hemoglobin 30.7 pg (26-34); Mean Corpuscular Volume 94.9 fl (80-100); Mean Platelet Volume 11.9 fl (7.4-10.4); Monocytes Absolute Auto 0.5 K/mm3 (0.1-0.6); Monocytes Percent Auto 8.1 % (2.6-8.5); Neutrophils Absolute Auto 5.1 K/mm3 (1.3-6.7); Neutrophils Percent Auto 79.6 % (45.5-73.1); Platelet Count Result 137 k/mm3 (150-375); Red Blood Count 3.75 M/mm3 (4.6-6.20); Red Cell Distribution Width 14.7 % (11.5-14.5); White Blood Count 6.4 K/mm3 (4.5-10.0)
[2021-07-11 11:08] LABS: Alanine Aminotransferase 31 U/L (4-50); Albumin Level 2.9 g/dL (3.5-5.1); Alkaline Phosphatase 93 U/L (38-126); Anion Gap 2 mmol/L (8-16); Aspartate Amino Transferase 41 U/L (17-59); Bilirubin,Total 0.8 mg/dL (0.2-1.3); Blood Urea Nitrogen 25 mg/dL (9-20); Calcium 8.2 mg/dL (8.4-10.2); Carbon Dioxide 30 mmol/L (22-30); Chloride 100 mmol/L (98-107); Estimated CRCL calculation 69 ml/min; Estimated Glomerular Filt Rate > 60; Glucose 132 mg/dL (65-110); Magnesium 2.4 mg/dL (1.6-2.3); Sodium 132 mmol/L (137-145)
[2021-07-11 12:00] VITALS: BP 154/72; PULSE 88; RESP 16; TEMP 35.9; O2SAT 93
[2021-07-11] MEDS: MELATONIN 3 MG TABLET PO (20:28)
[2021-07-11 20:55] LABS: Glucose Peritoneal Fluid 135 mg/dL; LDH Peritoneal Fluid 50 U/L (<63); Total Protein Peritoneal Fluid <3.0 g/dL
[2021-07-11 22:07] VITALS: BP 134/59; PULSE 63; RESP 16; TEMP 36.1; O2SAT 95
[2021-07-12] VITALS (10 sets, daily range): BP systolic 118–151; BP diastolic 64–86; PULSE 57–78; RESP 16–22; TEMP 35.9–36.8; O2SAT 94–99
[2021-07-12] MEDS: HYDROcodone/acetaminophen (*CRX) 5-325 MG TABLET 1 TAB PO ×4 (00:57→20:54)
[2021-07-12] MEDS: metroNIDAZOLE 250 MG TABLET 500 MG PO ×4 (00:58→17:00)
[2021-07-12] MEDS: ALBUTEROL SULFATE (*SP) INHALER 2 PUFF INHALATION ×4 (03:15→22:10)
--- NOTE | 2021-07-12 09:00 | PM.IMPN ---
Progress Note: A&P Assessment and Plan (1) Pneumonia due to COVID-19 virus: Code(s): U07.1 - COVID-19; J12.82 - Pneumonia due to coronavirus disease 2019 Status: Acute Assessment and Plan: Seems to be resolved at this time Tested positive on 07/04/2021 Saturation 84% upon arrival Supplemental O2 ordered was able to wean to room air, wean to maintain saturations greater than 90% CTA shows no PE, trace pleural effusions, emphysema, cirrhosis with portal hypertension, splenomegaly, small amount of ascites Start remdesivir and dexamethasone day 5 Anti-tussives for cough IS and Vahid therapy Monitor fluid status Albuterol scheduled Inflammatory markers: D-dimer 2.70, LDH 726, CRP 11.1, Ferritin 515 07/09/21 Isolation for droplet and contact precautions Lovenox 40 mg daily for DVT prophylaxis Repeat chest xray: Patchy bilateral airspace disease, compatible with pneumonia. (07/11/21) (2) Elevated d-dimer: Code(s): R79.89 - Other specified abnormal findings of blood chemistry Status: Acute Assessment and Plan: D-dimer 9.64, trending down 2.70 CT negative for PE Probably related to COVID Lovenox started Will get a right lower extremity Doppler with noted swelling (3) Elevated troponin: Code(s): R77.8 - Other specified abnormalities of plasma proteins Status: Acute Assessment and Plan: Troponin 0.220, 0.173 EKG does not note any ST elevation No noted chest pain today, complaints of intermittent chest pain over the last couple of days Cardiology consult thank you for your help BNP 7820 Lasix ordered Tele monitor (4) Thrombocytopenia: Code(s): D69.6 - Thrombocytopenia, unspecified Status: Acute Assessment and Plan: PLTs at 137 Known history Related to cirrhosis Trend labs (5) Fracture of right hip requiring operative repair: Code(s): S72.001A - Fracture of unspecified part of neck of right femur, initial encounter for closed fracture Status: Acute Assessment and Plan: S/P repair on 06/25/21 PT/OT Pain medications ordered (6) Urinary retention: Code(s): R33.9 - Retention of urine, unspecified Status: Acute Assessment and Plan: States that he does not feel that he is fully empting Post residual void, bladder scan PRN Start on finasteride Trend urine output Consider urinary catheter (7) Abdominal pain: Code(s): R10.9 - Unspecified abdominal pain Status: Acute Assessment and Plan: States sore and tender Paracentesis was performed KUB No acute abdominal abnormality identified. CTA shows small ascites Consider ultrasound (8) Acute UTI: Code(s): N39.0 - Urinary tract infection, site not specified Status: Acute Assessment and Plan: Terri, 2+ blood, positive nitrites, 3+ leukocyte esterase, WBC >75, WBC clumps present, trace bacteria Ceftriaxone on board Could be related to some retention problems Culture found Enterobacter cloacae complex sensitivities include cipro will start that for enteritis monitor urine output monitor symptoms (9) CHF (congestive heart failure): Code(s): I50.9 - Heart failure, unspecified Status: Acute Assessment and Plan: 3-4+ pitting edema on right lower leg, getting better Echo grade 2 DD and EF of 65-70% CHF exacerbation of Diastolic dysfunction BP is labile, restart propanolol at this time Albumin is 2.9, consider replacement with lasix to see if the fluid comes off Lasix 40mg IV BID, change to bumex 1mg IV BID Limit salt intake Strict I&Os daily weights Walt marin (10) Ascites: Code(s): R18.8 - Other ascites Status: Acute Assessment and Plan: Found on the CT Paracentesis ordered 1.5L off Albumin x 1 ordered (11) Enteritis: Code(s): K52.9 - Noninfective ga
--- NOTE | 2021-07-12 09:00 | P.PNIM_ITS ---
Progress Note: A&P Assessment and Plan (1) Pneumonia due to COVID-19 virus: Code(s): U07.1 - COVID-19; J12.82 - Pneumonia due to coronavirus disease 2019 Status: Acute Assessment and Plan: * Seems to be resolved at this time * Tested positive on 07/04/2021 * Saturation 84% upon arrival * Supplemental O2 ordered was able to wean to room air, wean to maintain saturations greater than 90% * CTA shows no PE, trace pleural effusions, emphysema, cirrhosis with portal hypertension, splenomegaly, small amount of ascites * Start remdesivir and dexamethasone day 5 * Anti-tussives for cough * IS and Vahid therapy * Monitor fluid status * Albuterol scheduled * Inflammatory markers: D-dimer 2.70, LDH 726, CRP 11.1, Ferritin 515 07/09/21 * Isolation for droplet and contact precautions * Lovenox 40 mg daily for DVT prophylaxis * Repeat chest xray: Patchy bilateral airspace disease, compatible with pneumonia. (07/11/21) (2) Elevated d-dimer: Code(s): R79.89 - Other specified abnormal findings of blood chemistry Status: Acute Assessment and Plan: * D-dimer 9.64, trending down 2.70 * CT negative for PE * Probably related to COVID * Lovenox started * Will get a right lower extremity Doppler with noted swelling (3) Elevated troponin: Code(s): R77.8 - Other specified abnormalities of plasma proteins Status: Acute Assessment and Plan: * Troponin 0.220, 0.173 * EKG does not note any ST elevation * No noted chest pain today, complaints of intermittent chest pain over the last couple of days * Cardiology consult thank you for your help * BNP 7820 * Lasix ordered * Tele monitor (4) Thrombocytopenia: Code(s): D69.6 - Thrombocytopenia, unspecified Status: Acute Assessment and Plan: * PLTs at 137 * Known history * Related to cirrhosis * Trend labs (5) Fracture of right hip requiring operative repair: Code(s): S72.001A - Fracture of unspecified part of neck of right femur, initial encounter for closed fracture Status: Acute Assessment and Plan: * S/P repair on 06/25/21 * PT/OT * Pain medications ordered (6) Urinary retention: Code(s): R33.9 - Retention of urine, unspecified Status: Acute Assessment and Plan: * States that he does not feel that he is fully empting * Post residual void, bladder scan PRN * Start on finasteride * Trend urine output * Consider urinary catheter (7) Abdominal pain: Code(s): R10.9 - Unspecified abdominal pain Status: Acute Assessment and Plan: * States sore and tender * Paracentesis was performed * KUB No acute abdominal abnormality identified. * CTA shows small ascites * Consider ultrasound (8) Acute UTI: Code(s): N39.0 - Urinary tract infection, site not specified Status: Acute Assessment and Plan: * Terri, 2+ blood, positive nitrites, 3+ leukocyte esterase, WBC >75, WBC clumps present, trace bacteria * Ceftriaxone on board * Could be related to some retention problems * Culture found Enterobacter cloacae complex * sensitivities include cipro will start that for enteritis * monitor urine output * monitor symptoms (9) CHF (congestive heart failure): Code(s): I50.9 - Heart failure, unspecified Status: Acute Assessment and Plan: * 3-4+ pitting edema on
[2021-07-12] MEDS: CIPROFLOXACIN 500 MG TAB PO ×2 (09:02→20:54)
[2021-07-12] MEDS: FLUTICASONE PROPIONATE 0.05% NA SPR 16 GM BTL (*BKC) 2 SPRAY NASAL (09:02)
[2021-07-12] MEDS: AZELASTINE HCL NASAL 0.1% 137 MCG/SPR 30 ML BTL 2 SPRAY NASAL (09:02)
[2021-07-12] MEDS: FUROSEMIDE INJ 40 MG/4 ML VIAL IV PUSH (09:02)
[2021-07-12] MEDS: ENOXAPARIN 40 MG/0.4 ML SYRINGE SUB-Q (09:02)
[2021-07-12] MEDS: FINASTERIDE 5 MG TABLET PO (09:03)
[2021-07-12] MEDS: CHOLECALCIFEROL 1,000 UNITS TABLET 2000 UNITS PO (09:03)
[2021-07-12] MEDS: PROPRANOLOL HCL 60 MG CAPSULE CR PO (09:03)
[2021-07-12] MEDS: LORATADINE 10 MG TABLET PO (09:03)
[2021-07-12] MEDS: ESCITALOPRAM OXALATE 10 MG TABLET 20 MG PO (09:03)
[2021-07-12] MEDS: methylPHENIDATE HCL (*CRX) 5 MG TABLET PO ×2 (09:04→16:23)
[2021-07-12] MEDS: BUMETANIDE INJ 1 MG/4 ML VIAL IV PUSH ×2 (12:44→16:23)
[2021-07-12 13:19] LABS: Amylase Peritoneal Fluid <10 U/L
--- NOTE | 2021-07-12 19:20 | PC.NURSE ---
Pt requesting Imodium for diarrhea this shift, all stool softener held today, Md Ho called for Imodium, no immodium ordered, N.o for c diff stool sample.
[2021-07-12] MEDS: MELATONIN 3 MG TABLET PO (20:55)
[2021-07-12 21:06] LABS: Glucose Point of Care 132 mg/dl (65-105)
[2021-07-13] VITALS (8 sets, daily range): BP systolic 119–142; BP diastolic 60–76; PULSE 58–66; RESP 16–20; TEMP 36.1–36.3; O2SAT 93–99
[2021-07-13] MEDS: metroNIDAZOLE 250 MG TABLET 500 MG PO ×4 (00:46→17:36)
[2021-07-13] MEDS: ALBUTEROL SULFATE (*SP) INHALER 2 PUFF INHALATION ×4 (03:15→21:17)
[2021-07-13 06:42] LABS: Basophils Percent Auto 0.2 % (0.2-1.2); Eosinophils Percent Auto 0.1 % (0-4.4); Hematocrit 39.6 % (42.0-52.0); Hemoglobin 12.8 g/dL (14.0-18.0); Immature Granulocyte Absolute 0.22 K/mm3 (0.00-0.031); Immature Granulocyte Percent A 2.4 % (0-0.5); Immature Platelet Fraction Pct 10.2 % (0.9-11.2); Lymphocytes Absolute Auto 0.78 K/mm3 (0.9-3.2); Lymphocytes Percent Auto 8.5 % (18.3-44.2); Mean Corpuscular HGB Conc 32.3 g/dl (32-36); Mean Corpuscular Volume 95.9 fl (80-100); Mean Platelet Volume 11.4 fl (7.4-10.4); Monocytes Absolute Auto 0.7 K/mm3 (0.1-0.6); Monocytes Percent Auto 8.1 % (2.6-8.5); Neutrophils Absolute Auto 7.4 K/mm3 (1.3-6.7); Neutrophils Percent Auto 80.7 % (45.5-73.1); Platelet Count Result 129 k/mm3 (150-375); Red Blood Count 4.13 M/mm3 (4.6-6.20); Red Cell Distribution Width 14.7 % (11.5-14.5); White Blood Count 9.2 K/mm3 (4.5-10.0)
[2021-07-13 06:53] LABS: Alanine Aminotransferase 29 U/L (4-50); Albumin Level 3.1 g/dL (3.5-5.1); Alkaline Phosphatase 85 U/L (38-126); Anion Gap 5 mmol/L (8-16); Aspartate Amino Transferase 42 U/L (17-59); Bilirubin,Total 0.9 mg/dL (0.2-1.3); Blood Urea Nitrogen 22 mg/dL (9-20); Calcium 7.8 mg/dL (8.4-10.2); Carbon Dioxide 27 mmol/L (22-30); Chloride 94 mmol/L (98-107); Estimated CRCL calculation 87 ml/min; Estimated Glomerular Filt Rate > 60; Glucose 149 mg/dL (65-110); Magnesium 2.4 mg/dL (1.6-2.3); Potassium 3.3 mmol/L (3.4-5.0); Sodium 126 mmol/L (137-145)
--- NOTE | 2021-07-13 07:36 | PC.NURSE ---
reported na 126 and 3.3K, N.o received from provider ALBERTO Garcia, 40meq K+ PO and urine studies.
[2021-07-13] MEDS: FLUTICASONE PROPIONATE 0.05% NA SPR 16 GM BTL (*BKC) 2 SPRAY NASAL (08:10)
[2021-07-13] MEDS: AZELASTINE HCL NASAL 0.1% 137 MCG/SPR 30 ML BTL 2 SPRAY NASAL (08:10)
[2021-07-13] MEDS: LORATADINE 10 MG TABLET PO (08:14)
[2021-07-13] MEDS: ESCITALOPRAM OXALATE 10 MG TABLET 20 MG PO (08:14)
[2021-07-13] MEDS: PROPRANOLOL HCL 60 MG CAPSULE CR PO (08:14)
[2021-07-13] MEDS: FINASTERIDE 5 MG TABLET PO (08:14)
[2021-07-13] MEDS: CHOLECALCIFEROL 1,000 UNITS TABLET 2000 UNITS PO (08:14)
[2021-07-13] MEDS: ENOXAPARIN 40 MG/0.4 ML SYRINGE SUB-Q (08:14)
[2021-07-13] MEDS: methylPHENIDATE HCL (*CRX) 5 MG TABLET PO ×2 (08:15→16:12)
[2021-07-13] MEDS: CIPROFLOXACIN 500 MG TAB PO ×2 (08:15→21:17)
[2021-07-13] MEDS: HYDROcodone/acetaminophen (*CRX) 5-325 MG TABLET 1 TAB PO ×3 (08:15→21:15)
[2021-07-13] MEDS: BUMETANIDE INJ 1 MG/4 ML VIAL IV PUSH ×2 (08:15→16:12)
[2021-07-13] MEDS: POTASSIUM CHLORIDE 20 MEQ TABLET 40 MEQ PO (08:15)
--- NOTE | 2021-07-13 09:15 | P.PNIM_ITS ---
Progress Note: A&P Assessment and Plan (1) Hyponatremia: Code(s): E87.1 - Hypo-osmolality and hyponatremia Status: Acute Assessment and Plan: * Na is trending down and is 126 today * Urine studies ordered * Could be related to diuretics, changed frequency * Consider starting on NS infusion * Trend labs (2) Enteritis: Code(s): K52.9 - Noninfective gastroenteritis and colitis, unspecified Status: Acute Assessment and Plan: * Seen on the CT * Sensitivities indicate cipro is good for UTI as well * cipro flagyl started (3) Acute UTI: Code(s): N39.0 - Urinary tract infection, site not specified Status: Acute Assessment and Plan: * Terri, 2+ blood, positive nitrites, 3+ leukocyte esterase, WBC >75, WBC clumps present, trace bacteria * Could be related to some retention problems * Culture found Enterobacter cloacae complex * sensitivities include cipro will start that for enteritis * monitor urine output * monitor symptoms (4) Thrombocytopenia: Code(s): D69.6 - Thrombocytopenia, unspecified Status: Acute Assessment and Plan: * Remains stable * PLTs at 129 * Known history * Related to cirrhosis * Trend labs (5) Fracture of right hip requiring operative repair: Code(s): S72.001A - Fracture of unspecified part of neck of right femur, initial encounter for closed fracture Status: Acute Assessment and Plan: * S/P repair on 06/25/21 * PT/OT * Pain medications ordered (6) Urinary retention: Code(s): R33.9 - Retention of urine, unspecified Status: Acute Assessment and Plan: * States that he does not feel that he is fully empting * Post residual void, bladder scan PRN * Start on finasteride * Trend urine output * Consider urinary catheter (7) Abdominal pain: Code(s): R10.9 - Unspecified abdominal pain Status: Acute Assessment and Plan: * States sore and tender * Lactic acid ordered * Paracentesis was performed * KUB No acute abdominal abnormality identified 07/12/21 * CT (07/09/21) shows small ascites (was tapped 07/09/21), enteritis, and cirrhosis * Consider Repeat ct (8) CHF (congestive heart failure): Code(s): I50.9 - Heart failure, unspecified Status: Acute Assessment and Plan: * 3-4+ pitting edema on right lower leg, getting better * Echo grade 2 DD and EF of 65-70% * CHF exacerbation of Diastolic dysfunction * propanolol 60mg PO daily * Albumin is 2.9, consider replacement with lasix to see if the fluid comes off * Lasix 40mg IV BID, change to bumex 1mg IV BID, change to daily since Na is low * Limit salt intake * Strict I&Os * daily weights * Walt marin (9) Ascites: Code(s): R18.8 - Other ascites Status: Acute Assessment and Plan: * Found on the CT * Paracentesis ordered * 1.5L off * Albumin x 1 ordered (10) Sepsis: Code(s): A41.9 - Sepsis, unspecified organism Status: Acute Assessment and Plan: * Resolved at this time * Patient meets criteria with elevated white blood cell count of 19.2, lactic acid of 2.6, episodes of hypotension * Repeat lactic is 2.1 * Fluid resuscitation 80 * Blood cultures NGTD * Antibiotics started * Source of infection pneumonia, UTI * Trend white blood cell count *
--- NOTE | 2021-07-13 09:15 | PM.IMPN ---
Progress Note: A&P Assessment and Plan (1) Hyponatremia: Code(s): E87.1 - Hypo-osmolality and hyponatremia Status: Acute Assessment and Plan: Na is trending down and is 126 today Urine studies ordered Could be related to diuretics, changed frequency Consider starting on NS infusion Trend labs (2) Enteritis: Code(s): K52.9 - Noninfective gastroenteritis and colitis, unspecified Status: Acute Assessment and Plan: Seen on the CT Sensitivities indicate cipro is good for UTI as well cipro flagyl started (3) Acute UTI: Code(s): N39.0 - Urinary tract infection, site not specified Status: Acute Assessment and Plan: Terri, 2+ blood, positive nitrites, 3+ leukocyte esterase, WBC >75, WBC clumps present, trace bacteria Could be related to some retention problems Culture found Enterobacter cloacae complex sensitivities include cipro will start that for enteritis monitor urine output monitor symptoms (4) Thrombocytopenia: Code(s): D69.6 - Thrombocytopenia, unspecified Status: Acute Assessment and Plan: Remains stable PLTs at 129 Known history Related to cirrhosis Trend labs (5) Fracture of right hip requiring operative repair: Code(s): S72.001A - Fracture of unspecified part of neck of right femur, initial encounter for closed fracture Status: Acute Assessment and Plan: S/P repair on 06/25/21 PT/OT Pain medications ordered (6) Urinary retention: Code(s): R33.9 - Retention of urine, unspecified Status: Acute Assessment and Plan: States that he does not feel that he is fully empting Post residual void, bladder scan PRN Start on finasteride Trend urine output Consider urinary catheter (7) Abdominal pain: Code(s): R10.9 - Unspecified abdominal pain Status: Acute Assessment and Plan: States sore and tender Lactic acid ordered Paracentesis was performed KUB No acute abdominal abnormality identified 07/12/21 CT (07/09/21) shows small ascites (was tapped 07/09/21), enteritis, and cirrhosis Consider Repeat ct (8) CHF (congestive heart failure): Code(s): I50.9 - Heart failure, unspecified Status: Acute Assessment and Plan: 3-4+ pitting edema on right lower leg, getting better Echo grade 2 DD and EF of 65-70% CHF exacerbation of Diastolic dysfunction propanolol 60mg PO daily Albumin is 2.9, consider replacement with lasix to see if the fluid comes off Lasix 40mg IV BID, change to bumex 1mg IV BID, change to daily since Na is low Limit salt intake Strict I&Os daily weights Walt marin (9) Ascites: Code(s): R18.8 - Other ascites Status: Acute Assessment and Plan: Found on the CT Paracentesis ordered 1.5L off Albumin x 1 ordered (10) Sepsis: Code(s): A41.9 - Sepsis, unspecified organism Status: Acute Assessment and Plan: Resolved at this time Patient meets criteria with elevated white blood cell count of 19.2, lactic acid of 2.6, episodes of hypotension Repeat lactic is 2.1 Fluid resuscitation 80 Blood cultures NGTD Antibiotics started Source of infection pneumonia, UTI Trend white blood cell count Tailor antibiotics as indicated (11) Acute respiratory failure with hypoxia: Code(s): J96.01 - Acute respiratory failure with hypoxia Status: Acute Assessment and Plan: Resolved at this time Saturation noted to be 84% upon arrival Blood gas noted to show respiratory alkalosis with hypoxia Supplemental oxygen to maintain saturations greater than 90% Trend SpO2 Manage fluid status CTA denies pulmonary embolism (12) Pneumonia due to COVID-19 virus: Code(s): U07.1 - COVID-19; J12.82 - Pneumonia due to coronavirus disease 2019 Status: Acute Assessment and Plan
[2021-07-13] MEDS: MORPHINE SULFATE (*CRX) 2 MG/ML INJ 1 MG IV PUSH (11:52)
[2021-07-13 13:00] LABS: Toxigenic C. Diff NEGATIVE (NEGATIVE)
[2021-07-13 13:01] LABS: Creatinine Urine 36.4 mg/dL; Urea Random Urine 417 MG/DL
[2021-07-13 13:07] LABS: Sodium Urine Random 5 meq/L
[2021-07-13] MEDS: MELATONIN 3 MG TABLET PO (21:17)
[2021-07-13 21:28] LABS: Glucose Point of Care 135 mg/dl (65-105)
[2021-07-14] VITALS (7 sets, daily range): BP systolic 118–124; BP diastolic 59–83; PULSE 60–84; RESP 18; TEMP 35.9–36.6; O2SAT 96–100
[2021-07-14] MEDS: metroNIDAZOLE 250 MG TABLET 500 MG PO ×4 (00:28→17:50)
[2021-07-14] MEDS: ALBUTEROL SULFATE (*SP) INHALER 2 PUFF INHALATION ×4 (02:22→20:27)
--- NOTE | 2021-07-14 08:15 | PM.IMPN ---
Progress Note: A&P Assessment and Plan (1) Hyponatremia: Code(s): E87.1 - Hypo-osmolality and hyponatremia Status: Acute Assessment and Plan: Na is 127 today Urine studies ordered indicates that the patient is most likely dehydrated DC'd diuretics NS at 100ml/hr for one liter Trend labs (2) Enteritis: Code(s): K52.9 - Noninfective gastroenteritis and colitis, unspecified Status: Acute Assessment and Plan: Seen on the CT Sensitivities indicate cipro is good for UTI as well cipro flagyl started (3) Acute UTI: Code(s): N39.0 - Urinary tract infection, site not specified Status: Acute Assessment and Plan: Terri, 2+ blood, positive nitrites, 3+ leukocyte esterase, WBC >75, WBC clumps present, trace bacteria Could be related to some retention problems Culture found Enterobacter cloacae complex sensitivities include cipro will start that for enteritis monitor urine output monitor symptoms (4) Thrombocytopenia: Code(s): D69.6 - Thrombocytopenia, unspecified Status: Acute Assessment and Plan: Remains stable PLTs at 148 Known history Related to cirrhosis Trend labs (5) Fracture of right hip requiring operative repair: Code(s): S72.001A - Fracture of unspecified part of neck of right femur, initial encounter for closed fracture Status: Acute Assessment and Plan: S/P repair on 06/25/21 PT/OT Pain medications ordered (6) Urinary retention: Code(s): R33.9 - Retention of urine, unspecified Status: Acute Assessment and Plan: States that he does not feel that he is fully empting Post residual void, bladder scan PRN Start on finasteride Trend urine output Consider urinary catheter (7) Abdominal pain: Code(s): R10.9 - Unspecified abdominal pain Status: Acute Assessment and Plan: States sore and tender Lactic acid ordered Paracentesis was performed KUB No acute abdominal abnormality identified 07/12/21 CT (07/09/21) shows small ascites (was tapped 07/09/21), enteritis, and cirrhosis Consider Repeat ct (8) CHF (congestive heart failure): Code(s): I50.9 - Heart failure, unspecified Status: Acute Assessment and Plan: 3-4+ pitting edema on right lower leg, getting better Echo grade 2 DD and EF of 65-70% CHF exacerbation of Diastolic dysfunction propanolol 60mg PO daily Albumin is 2.9, consider replacement with lasix to see if the fluid comes off Lasix 40mg IV BID, change to bumex 1mg IV BID, change to daily since Na is low Limit salt intake Strict I&Os daily weights Walt marin (9) Ascites: Code(s): R18.8 - Other ascites Status: Acute Assessment and Plan: Found on the CT Paracentesis ordered 1.5L off Albumin x 1 ordered (10) Sepsis: Code(s): A41.9 - Sepsis, unspecified organism Status: Acute Assessment and Plan: Resolved at this time Patient meets criteria with elevated white blood cell count of 19.2, lactic acid of 2.6, episodes of hypotension Repeat lactic is 2.1 Fluid resuscitation 80 Blood cultures NGTD Antibiotics started Source of infection pneumonia, UTI Trend white blood cell count Tailor antibiotics as indicated (11) Acute respiratory failure with hypoxia: Code(s): J96.01 - Acute respiratory failure with hypoxia Status: Acute Assessment and Plan: Resolved at this time Saturation noted to be 84% upon arrival Blood gas noted to show respiratory alkalosis with hypoxia Supplemental oxygen to maintain saturations greater than 90% Trend SpO2 Manage fluid status CTA denies pulmonary embolism (12) Pneumonia due to COVID-19 virus: Code(s): U07.1 - COVID-19; J12.82 - Pneumonia due to coronavirus disease 2019 Status: Acute Assessment and Plan: S
--- NOTE | 2021-07-14 08:15 | P.PNIM_ITS ---
Progress Note: A&P Assessment and Plan (1) Hyponatremia: Code(s): E87.1 - Hypo-osmolality and hyponatremia Status: Acute Assessment and Plan: * Na is 127 today * Urine studies ordered indicates that the patient is most likely dehydrated * DC'd diuretics * NS at 100ml/hr for one liter * Trend labs (2) Enteritis: Code(s): K52.9 - Noninfective gastroenteritis and colitis, unspecified Status: Acute Assessment and Plan: * Seen on the CT * Sensitivities indicate cipro is good for UTI as well * cipro flagyl started (3) Acute UTI: Code(s): N39.0 - Urinary tract infection, site not specified Status: Acute Assessment and Plan: * Terri, 2+ blood, positive nitrites, 3+ leukocyte esterase, WBC >75, WBC clumps present, trace bacteria * Could be related to some retention problems * Culture found Enterobacter cloacae complex * sensitivities include cipro will start that for enteritis * monitor urine output * monitor symptoms (4) Thrombocytopenia: Code(s): D69.6 - Thrombocytopenia, unspecified Status: Acute Assessment and Plan: * Remains stable * PLTs at 148 * Known history * Related to cirrhosis * Trend labs (5) Fracture of right hip requiring operative repair: Code(s): S72.001A - Fracture of unspecified part of neck of right femur, initial encounter for closed fracture Status: Acute Assessment and Plan: * S/P repair on 06/25/21 * PT/OT * Pain medications ordered (6) Urinary retention: Code(s): R33.9 - Retention of urine, unspecified Status: Acute Assessment and Plan: * States that he does not feel that he is fully empting * Post residual void, bladder scan PRN * Start on finasteride * Trend urine output * Consider urinary catheter (7) Abdominal pain: Code(s): R10.9 - Unspecified abdominal pain Status: Acute Assessment and Plan: * States sore and tender * Lactic acid ordered * Paracentesis was performed * KUB No acute abdominal abnormality identified 07/12/21 * CT (07/09/21) shows small ascites (was tapped 07/09/21), enteritis, and cirrhosis * Consider Repeat ct (8) CHF (congestive heart failure): Code(s): I50.9 - Heart failure, unspecified Status: Acute Assessment and Plan: * 3-4+ pitting edema on right lower leg, getting better * Echo grade 2 DD and EF of 65-70% * CHF exacerbation of Diastolic dysfunction * propanolol 60mg PO daily * Albumin is 2.9, consider replacement with lasix to see if the fluid comes off * Lasix 40mg IV BID, change to bumex 1mg IV BID, change to daily since Na is low * Limit salt intake * Strict I&Os * daily weights * Walt marin (9) Ascites: Code(s): R18.8 - Other ascites Status: Acute Assessment and Plan: * Found on the CT * Paracentesis ordered * 1.5L off * Albumin x 1 ordered (10) Sepsis: Code(s): A41.9 - Sepsis, unspecified organism Status: Acute Assessment and Plan: * Resolved at this time * Patient meets criteria with elevated white blood cell count of 19.2, lactic acid of 2.6, episodes of hypotension * Repeat lactic is 2.1 * Fluid resuscitation 80 * Blood cultures NGTD * Antibiotics started * Source of infection pneumonia, UTI * Trend white blood cell count * Tailo
--- NOTE | 2021-07-14 09:34 | PCNWS ---
Weekly nutritional screen. Patient screened in for 7 day length of stay. Patient is tolerating current diet with adequate intake. No weight loss reported. No nutritional needs at this time.
[2021-07-14 09:37] LABS: Basophils Percent Auto 0.2 % (0.2-1.2); Eosinophils Percent Auto 0.1 % (0-4.4); Hematocrit 40.2 % (42.0-52.0); Hemoglobin 13.1 g/dL (14.0-18.0); Immature Granulocyte Absolute 0.29 K/mm3 (0.00-0.031); Immature Granulocyte Percent A 2.7 % (0-0.5); Lymphocytes Absolute Auto 0.92 K/mm3 (0.9-3.2); Lymphocytes Percent Auto 8.5 % (18.3-44.2); Mean Corpuscular HGB Conc 32.6 g/dl (32-36); Mean Corpuscular Hemoglobin 29.7 pg (26-34); Mean Corpuscular Volume 91.2 fl (80-100); Mean Platelet Volume 11.6 fl (7.4-10.4); Monocytes Absolute Auto 0.9 K/mm3 (0.1-0.6); Monocytes Percent Auto 8.7 % (2.6-8.5); Neutrophils Absolute Auto 8.6 K/mm3 (1.3-6.7); Neutrophils Percent Auto 79.8 % (45.5-73.1); Platelet Count Result 148 k/mm3 (150-375); Red Blood Count 4.41 M/mm3 (4.6-6.20); Red Cell Distribution Width 14.6 % (11.5-14.5); White Blood Count 10.8 K/mm3 (4.5-10.0)
[2021-07-14 09:51] LABS: Alanine Aminotransferase 29 U/L (4-50); Albumin Level 3.3 g/dL (3.5-5.1); Alkaline Phosphatase 99 U/L (38-126); Anion Gap 5 mmol/L (8-16); Aspartate Amino Transferase 40 U/L (17-59); Bilirubin,Total 0.8 mg/dL (0.2-1.3); Blood Urea Nitrogen 20 mg/dL (9-20); Calcium 8.2 mg/dL (8.4-10.2); Carbon Dioxide 31 mmol/L (22-30); Chloride 91 mmol/L (98-107); Estimated CRCL calculation 78 ml/min; Estimated Glomerular Filt Rate > 60; Glucose 140 mg/dL (65-110); Potassium 3.2 mmol/L (3.4-5.0); Sodium 127 mmol/L (137-145)
[2021-07-14] MEDS: methylPHENIDATE HCL (*CRX) 5 MG TABLET PO ×2 (09:57→17:37)
[2021-07-14] MEDS: BUMETANIDE INJ 1 MG/4 ML VIAL IV PUSH (09:58)
[2021-07-14] MEDS: ESCITALOPRAM OXALATE 10 MG TABLET 20 MG PO (09:58)
[2021-07-14] MEDS: AZELASTINE HCL NASAL 0.1% 137 MCG/SPR 30 ML BTL 2 SPRAY NASAL (09:58)
[2021-07-14] MEDS: CIPROFLOXACIN 500 MG TAB PO ×2 (09:58→21:20)
[2021-07-14] MEDS: FLUTICASONE PROPIONATE 0.05% NA SPR 16 GM BTL (*BKC) 2 SPRAY NASAL (09:58)
[2021-07-14] MEDS: LORATADINE 10 MG TABLET PO (09:58)
[2021-07-14] MEDS: CHOLECALCIFEROL 1,000 UNITS TABLET 2000 UNITS PO (09:58)
[2021-07-14] MEDS: FINASTERIDE 5 MG TABLET PO (09:58)
[2021-07-14] MEDS: ENOXAPARIN 40 MG/0.4 ML SYRINGE SUB-Q (10:01)
[2021-07-14] MEDS: PROPRANOLOL HCL 60 MG CAPSULE CR PO (10:03)
[2021-07-14] MEDS: SACCHAROMYCES BOULARDII 250 MG CAPSULE PO ×2 (13:05→17:50)
[2021-07-14] MEDS: HYDROcodone/acetaminophen (*CRX) 5-325 MG TABLET 1 TAB PO ×2 (13:10→21:27)
[2021-07-14] MEDS: SODIUM CHLORIDE 0.9% IV 1,000 ML 100 ML IV CONT (15:00)
[2021-07-14] MEDS: MELATONIN 3 MG TABLET PO (21:22)
[2021-07-14 21:30] LABS: Albumin Peritoneal Fluid 0.2 g/dL
[2021-07-15] VITALS (9 sets, daily range): BP systolic 116–149; BP diastolic 60–78; PULSE 56–97; RESP 16–20; TEMP 36.1–36.8; O2SAT 90–97
[2021-07-15] MEDS: metroNIDAZOLE 250 MG TABLET 500 MG PO ×5 (00:11→23:25)
[2021-07-15] MEDS: ALBUTEROL SULFATE (*SP) INHALER 2 PUFF INHALATION ×4 (02:10→20:23)
[2021-07-15] MEDS: HYDROcodone/acetaminophen (*CRX) 5-325 MG TABLET 1 TAB PO ×2 (05:24→20:59)
[2021-07-15 07:01] LABS: Basophils Percent Auto 0.2 % (0.2-1.2); Eosinophils Absolute Auto 0.2 K/mm3 (0-0.3); Eosinophils Percent Auto 1.3 % (0-4.4); Hematocrit 38.3 % (42.0-52.0); Hemoglobin 12.9 g/dL (14.0-18.0); Immature Granulocyte Absolute 0.28 K/mm3 (0.00-0.031); Immature Granulocyte Percent A 2.1 % (0-0.5); Immature Platelet Fraction Pct 10.4 % (0.9-11.2); Lymphocytes Absolute Auto 1.53 K/mm3 (0.9-3.2); Lymphocytes Percent Auto 11.6 % (18.3-44.2); Mean Corpuscular HGB Conc 33.7 g/dl (32-36); Mean Corpuscular Hemoglobin 30.1 pg (26-34); Mean Corpuscular Volume 89.3 fl (80-100); Mean Platelet Volume 11.8 fl (7.4-10.4); Monocytes Absolute Auto 1.5 K/mm3 (0.1-0.6); Monocytes Percent Auto 11.3 % (2.6-8.5); Neutrophils Absolute Auto 9.7 K/mm3 (1.3-6.7); Neutrophils Percent Auto 73.5 % (45.5-73.1); Platelet Count Result 136 k/mm3 (150-375); Red Blood Count 4.29 M/mm3 (4.6-6.20); Red Cell Distribution Width 14.6 % (11.5-14.5); White Blood Count 13.2 K/mm3 (4.5-10.0)
[2021-07-15 07:23] LABS: Alanine Aminotransferase 24 U/L (4-50); Alkaline Phosphatase 93 U/L (38-126); Anion Gap 3 mmol/L (8-16); Aspartate Amino Transferase 34 U/L (17-59); Blood Urea Nitrogen 17 mg/dL (9-20); Calcium 7.8 mg/dL (8.4-10.2); Carbon Dioxide 28 mmol/L (22-30); Chloride 91 mmol/L (98-107); Estimated CRCL calculation 87 ml/min; Estimated Glomerular Filt Rate > 60; Glucose 91 mg/dL (65-110); Magnesium 2.5 mg/dL (1.6-2.3); Potassium 2.7 mmol/L (3.4-5.0); Sodium 122 mmol/L (137-145)
[2021-07-15] MEDS: SODIUM CHLORIDE 0.9% IV 1,000 ML 125 ML IV CONT (08:51)
[2021-07-15] MEDS: POTASSIUM CHLORIDE INJ 40 MEQ in SODIUM CHLORIDE 0.9% IV 500 ML 130 MEQ IVPB (08:52)
[2021-07-15] MEDS: ESCITALOPRAM OXALATE 10 MG TABLET 20 MG PO (08:57)
[2021-07-15] MEDS: SODIUM CHLORIDE 1 GM TABLET PO (08:57)
[2021-07-15] MEDS: CHOLECALCIFEROL 1,000 UNITS TABLET 2000 UNITS PO (08:57)
[2021-07-15] MEDS: SACCHAROMYCES BOULARDII 250 MG CAPSULE PO ×3 (08:57→17:40)
[2021-07-15] MEDS: methylPHENIDATE HCL (*CRX) 5 MG TABLET PO ×2 (08:57→17:39)
[2021-07-15] MEDS: POTASSIUM CHLORIDE 20 MEQ TABLET 40 MEQ PO (08:58)
[2021-07-15] MEDS: FINASTERIDE 5 MG TABLET PO (08:58)
[2021-07-15] MEDS: CIPROFLOXACIN 500 MG TAB PO ×2 (08:58→21:01)
[2021-07-15] MEDS: LORATADINE 10 MG TABLET PO (08:58)
[2021-07-15] MEDS: PROPRANOLOL HCL 60 MG CAPSULE CR PO (09:03)
--- NOTE | 2021-07-15 10:00 | PM.IMPN ---
Progress Note: A&P Assessment and Plan (1) Acute respiratory failure with hypoxia: Code(s): J96.01 - Acute respiratory failure with hypoxia Status: Acute Assessment and Plan: Flaring up at this time No O2 requirement Blood gas noted to show respiratory alkalosis with hypoxia Supplemental oxygen to maintain saturations greater than 90% Trend SpO2 Manage fluid status CTA denies pulmonary embolism (2) Cirrhosis: Code(s): K74.60 - Unspecified cirrhosis of liver Status: Acute Assessment and Plan: Known problem imposed by ETOH abuse and could also be imposed by hep C history GI consulted thank you Paracentesis ordered at this time Spironolactone also added Fluid restriction added 1500ml per day LFTs WNL (3) Hyponatremia: Code(s): E87.1 - Hypo-osmolality and hyponatremia Status: Acute Assessment and Plan: Na is 122 today, think that this might be related to the ascities of the abdomen. Paracentesis is ordered DC fluids, start spironolactone Urine studies ordered indicates that the patient is most likely dehydrated DC'd diuretics Trend labs Fluid restriction also added (4) Hypokalemia: Code(s): E87.6 - Hypokalemia Status: Acute Assessment and Plan: K today is 2.7 Probably related to diuretics, possible fluid overload Started spironolactone Replace with 40 PO and 40IV Trend labs Labs in the am (5) Enteritis: Code(s): K52.9 - Noninfective gastroenteritis and colitis, unspecified Status: Acute Assessment and Plan: Seen on the CT Sensitivities indicate cipro is good for UTI as well cipro flagyl started (6) Acute UTI: Code(s): N39.0 - Urinary tract infection, site not specified Status: Acute Assessment and Plan: Terri, 2+ blood, positive nitrites, 3+ leukocyte esterase, WBC >75, WBC clumps present, trace bacteria Could be related to some retention problems Culture found Enterobacter cloacae complex sensitivities include cipro will start that for enteritis monitor urine output monitor symptoms (7) Thrombocytopenia: Code(s): D69.6 - Thrombocytopenia, unspecified Status: Acute Assessment and Plan: Remains stable PLTs at 136 Known history Related to cirrhosis Trend labs (8) Fracture of right hip requiring operative repair: Code(s): S72.001A - Fracture of unspecified part of neck of right femur, initial encounter for closed fracture Status: Acute Assessment and Plan: S/P repair on 06/25/21 PT/OT Pain medications ordered (9) Urinary retention: Code(s): R33.9 - Retention of urine, unspecified Status: Acute Assessment and Plan: States that he does not feel that he is fully empting Post residual void, bladder scan PRN Start on finasteride Trend urine output Consider urinary catheter (10) Abdominal pain: Code(s): R10.9 - Unspecified abdominal pain Status: Acute Assessment and Plan: States sore and tender Lactic acid 1.9 on 07/13/21 Paracentesis was performed, 07/09/21, repeat ordered for today KUB No acute abdominal abnormality identified 07/12/21 CT (07/09/21) shows small ascites (was tapped 07/09/21), enteritis, and cirrhosis Consider Repeat ct (11) CHF (congestive heart failure): Code(s): I50.9 - Heart failure, unspecified Status: Acute Assessment and Plan: 3-4+ pitting edema on right lower leg, getting better Echo grade 2 DD and EF of 65-70% CHF exacerbation of Diastolic dysfunction propanolol 60mg PO daily Albumin is 2.9, consider replacement with Lasix to see if the fluid comes off Changed to spironolactone 12.5mg PO BID, since potassium is low Limit salt intake Strict I&Os daily weights Walt marin (12) Ascites: Code(s): R18.8 - Other ascites
--- NOTE | 2021-07-15 10:00 | P.PNIM_ITS ---
Progress Note: A&P Assessment and Plan (1) Acute respiratory failure with hypoxia: Code(s): J96.01 - Acute respiratory failure with hypoxia Status: Acute Assessment and Plan: * Flaring up at this time * No O2 requirement * Blood gas noted to show respiratory alkalosis with hypoxia * Supplemental oxygen to maintain saturations greater than 90% * Trend SpO2 * Manage fluid status * CTA denies pulmonary embolism (2) Cirrhosis: Code(s): K74.60 - Unspecified cirrhosis of liver Status: Acute Assessment and Plan: * Known problem imposed by ETOH abuse and could also be imposed by hep C history * GI consulted thank you * Paracentesis ordered at this time * Spironolactone also added * Fluid restriction added 1500ml per day * LFTs WNL (3) Hyponatremia: Code(s): E87.1 - Hypo-osmolality and hyponatremia Status: Acute Assessment and Plan: * Na is 122 today, think that this might be related to the ascities of the abdomen. * Paracentesis is ordered * DC fluids, start spironolactone * Urine studies ordered indicates that the patient is most likely dehydrated * DC'd diuretics * Trend labs * Fluid restriction also added (4) Hypokalemia: Code(s): E87.6 - Hypokalemia Status: Acute Assessment and Plan: * K today is 2.7 * Probably related to diuretics, possible fluid overload * Started spironolactone * Replace with 40 PO and 40IV * Trend labs * Labs in the am (5) Enteritis: Code(s): K52.9 - Noninfective gastroenteritis and colitis, unspecified Status: Acute Assessment and Plan: * Seen on the CT * Sensitivities indicate cipro is good for UTI as well * cipro flagyl started (6) Acute UTI: Code(s): N39.0 - Urinary tract infection, site not specified Status: Acute Assessment and Plan: * Terir, 2+ blood, positive nitrites, 3+ leukocyte esterase, WBC >75, WBC clumps present, trace bacteria * Could be related to some retention problems * Culture found Enterobacter cloacae complex * sensitivities include cipro will start that for enteritis * monitor urine output * monitor symptoms (7) Thrombocytopenia: Code(s): D69.6 - Thrombocytopenia, unspecified Status: Acute Assessment and Plan: * Remains stable * PLTs at 136 * Known history * Related to cirrhosis * Trend labs (8) Fracture of right hip requiring operative repair: Code(s): S72.001A - Fracture of unspecified part of neck of right femur, initial encounter for closed fracture Status: Acute Assessment and Plan: * S/P repair on 06/25/21 * PT/OT * Pain medications ordered (9) Urinary retention: Code(s): R33.9 - Retention of urine, unspecified Status: Acute Assessment and Plan: * States that he does not feel that he is fully empting * Post residual void, bladder scan PRN * Start on finasteride * Trend urine output * Consider urinary catheter (10) Abdominal pain: Code(s): R10.9 - Unspecified abdominal pain Status: Acute Assessment and Plan: * States sore and tender * Lactic acid 1.9 on 07/13/21 * Paracentesis was performed, 07/09/21, repeat ordered for today * KUB No acute abdominal abnormality identified 07/12/21 * CT (07/09/21) shows small ascites (was tapped 07/09/21), ent
[2021-07-15] MEDS: MORPHINE SULFATE (*CRX) 2 MG/ML INJ 1 MG IV PUSH (10:24)
[2021-07-15] MEDS: SPIRONOLACTONE 12.5 MG TABLET PO (10:26)
[2021-07-15 12:13] LABS: INR 1.3; Prothrombin Time 15.9 Seconds (11.1-14.7)
--- NOTE | 2021-07-15 13:03 | WPDGICN ---
Assessment and Plan Assessment and plan (1) Cirrhosis: Code(s): K74.60 - Unspecified cirrhosis of liver Status: Acute Assessment and Plan: etiology is hepatitis C and alcohol abuse. He has been followed by hepatology at [facility] but over due for his visit (2) Ascites: Code(s): R18.8 - Other ascites Status: Acute Assessment and Plan: nearly 3 L were drawn off today. He has been started on spironolactone. I explained to the patient a fluid restriction is very important. and that he will need to restrict sodium as well. He does not believe that he has been told that in the past. I explained him that he cannot have potato chips pretzels or any other snacks at a are high in sodium. Obviously he is been receiving IV fluids since admission which contributes to his ascites . (3) Enteritis: Code(s): K52.9 - Noninfective gastroenteritis and colitis, unspecified Status: Acute Assessment and Plan: He has no symptoms of enteritis. This was a finding on CT scan was as a noted some small bowel mucosal thickening (4) Hypokalemia: Code(s): E87.6 - Hypokalemia Status: Acute Assessment and Plan: potassium was 2.7 today. He has been given oral and IV potassium and also started on spironolactone (5) Hepatitis C: Code(s): B19.20 - Unspecified viral hepatitis C without hepatic coma Status: Acute Assessment and Plan: this was treated at least 15 years ago and is inactive (6) Acute respiratory failure with hypoxia: Code(s): J96.01 - Acute respiratory failure with hypoxia Status: Acute Assessment and Plan: respiratory distress was his primary reason for hospitalization and reactivated today likely due to the accumulation of ascitic fluid (7) COVID-19: Code(s): U07.1 - COVID-19 Status: Acute Assessment and Plan: this seems to be inactive at this time. He was treated with supplemental oxygen and remdesivir as well as dexamethasone GI Consult Note Consult date/time: 07/15/21 13:03 HPI: Alex Fish is a 76 year old male Who I a.m. asked to see regarding complications of liver disease. He was actually admitted on July 07, having been brought to the emergency room from the rehab area where he was recovering from a recent right hip repair. Also he tested positive for COVID a few days prior to that. Oxygen saturation was initially 85%. He was also noted to have abdominal discomfort and distention and underwent paracentesis. Now today he is again quite distended and becoming short of breath. I discussed this case with Ismael Herrera, hospitalist and agreed that he would benefit from another paracentesis because of the respiratory compromise. The patient states that he was 1st diagnosed with cirrhosis when he underwent blood work 20 years ago when he was going to get a prosthesis for his left leg. He had been found to have hepatitis C at that time and also was drinking alcohol heavily. He quit drinking alcohol and he received treatment for his hepatitis C. He states that he has been followed by a liver specialist at the [facility]. The 1 who 1st treat him for the hepatitis is no longer there but he sees a Dr. Domingo whose last name he cannot recall and was due to have an ultrasound about the time that this all happened recently. He states that he only had paracentesis once before and was done twice within a 2 week period when he was hospitalized several years ago. He does not believe that he has ever been diagnosed with esophageal varices and if he has had an EGD it was quite awhile ago. He states that his weight is usually about 180 lb in that he has gained at least 10 lb in the last few months. Admission he was found to have marked edema of his right lower extremity. He is not sure if he was on any diuretics at the time of his admission. I see in the admission notes [email or web address]
[2021-07-15] MEDS: SPIRONOLACTONE 50 MG TABLET 100 MG PO (17:39)
[2021-07-15] MEDS: MELATONIN 3 MG TABLET PO (21:01)
[2021-07-16] VITALS (8 sets, daily range): BP systolic 112–139; BP diastolic 63–99; PULSE 59–72; RESP 16–18; TEMP 36.2–36.6; O2SAT 92–95
[2021-07-16] MEDS: ALBUTEROL SULFATE (*SP) INHALER 2 PUFF INHALATION ×4 (02:35→19:28)
[2021-07-16 04:55] LABS: Osmolality, Urine 235 mOsm/kg (50-1200)
[2021-07-16] MEDS: metroNIDAZOLE 250 MG TABLET 500 MG PO ×3 (06:16→17:32)
[2021-07-16 07:33] LABS: Ammonia < 9 umol/L (9-30)
[2021-07-16] MEDS: methylPHENIDATE HCL (*CRX) 5 MG TABLET PO ×2 (08:12→17:31)
[2021-07-16] MEDS: ENOXAPARIN 40 MG/0.4 ML SYRINGE SUB-Q (08:12)
[2021-07-16] MEDS: CHOLECALCIFEROL 1,000 UNITS TABLET 2000 UNITS PO (08:13)
[2021-07-16] MEDS: CIPROFLOXACIN 500 MG TAB PO ×2 (08:13→20:39)
[2021-07-16] MEDS: SPIRONOLACTONE 50 MG TABLET 100 MG PO ×2 (08:13→17:32)
[2021-07-16] MEDS: FLUTICASONE PROPIONATE 0.05% NA SPR 16 GM BTL (*BKC) 2 SPRAY NASAL (08:13)
[2021-07-16] MEDS: AZELASTINE HCL NASAL 0.1% 137 MCG/SPR 30 ML BTL 2 SPRAY NASAL ×2 (08:13→17:31)
[2021-07-16] MEDS: FINASTERIDE 5 MG TABLET PO (08:14)
[2021-07-16] MEDS: SACCHAROMYCES BOULARDII 250 MG CAPSULE PO ×3 (08:14→17:32)
[2021-07-16] MEDS: ESCITALOPRAM OXALATE 10 MG TABLET 20 MG PO (08:14)
[2021-07-16] MEDS: PROPRANOLOL HCL 60 MG CAPSULE CR PO (08:14)
[2021-07-16] MEDS: LORATADINE 10 MG TABLET PO (08:15)
--- NOTE | 2021-07-16 08:45 | P.PNIM_ITS ---
Progress Note: A&P Assessment and Plan (1) Acute respiratory failure with hypoxia: Code(s): J96.01 - Acute respiratory failure with hypoxia Status: Acute Assessment and Plan: * Flaring up at this time * No O2 requirement * Blood gas noted to show respiratory alkalosis with hypoxia * Supplemental oxygen to maintain saturations greater than 90% * Trend SpO2 * Manage fluid status * CTA denies pulmonary embolism (2) Cirrhosis: Code(s): K74.60 - Unspecified cirrhosis of liver Status: Acute Assessment and Plan: * Known problem imposed by ETOH abuse and could also be imposed by hep C history * GI consulted thank you * Paracentesis ordered at this time * Spironolactone also added * Fluid restriction added 1500ml per day * LFTs WNL (3) Hyponatremia: Code(s): E87.1 - Hypo-osmolality and hyponatremia Status: Acute Assessment and Plan: * Na is 126 today, think that this might be related to the ascites of the abdomen. * Paracentesis is ordered * DC fluids, start spironolactone * Urine studies ordered indicates that the patient is most likely dehydrated * DC'd diuretics * Trend labs * Fluid restriction also added (4) Hypokalemia: Code(s): E87.6 - Hypokalemia Status: Acute Assessment and Plan: * K today is 3.7 * Probably related to diuretics, possible fluid overload * Started spironolactone * Replace with 40 PO and 40IV * Trend labs * Labs in the am (5) Enteritis: Code(s): K52.9 - Noninfective gastroenteritis and colitis, unspecified Status: Acute Assessment and Plan: * Seen on the CT * Sensitivities indicate cipro is good for UTI as well * cipro flagyl started (6) Acute UTI: Code(s): N39.0 - Urinary tract infection, site not specified Status: Acute Assessment and Plan: * Terri, 2+ blood, positive nitrites, 3+ leukocyte esterase, WBC >75, WBC clumps present, trace bacteria * Could be related to some retention problems * Culture found Enterobacter cloacae complex * sensitivities include cipro will start that for enteritis * monitor urine output * monitor symptoms (7) Thrombocytopenia: Code(s): D69.6 - Thrombocytopenia, unspecified Status: Acute Assessment and Plan: * Remains stable * PLTs at 144 * Known history * Related to cirrhosis * Trend labs (8) Fracture of right hip requiring operative repair: Code(s): S72.001A - Fracture of unspecified part of neck of right femur, initial encounter for closed fracture Status: Acute Assessment and Plan: * S/P repair on 06/25/21 * PT/OT * Pain medications ordered (9) Urinary retention: Code(s): R33.9 - Retention of urine, unspecified Status: Acute Assessment and Plan: * States that he does not feel that he is fully empting * Post residual void, bladder scan PRN * Start on finasteride * Trend urine output * Consider urinary catheter (10) Abdominal pain: Code(s): R10.9 - Unspecified abdominal pain Status: Acute Assessment and Plan: * States sore and tender * Lactic acid 1.9 on 07/13/21 * Paracentesis was performed, 07/09/21, repeat ordered for today * KUB No acute abdominal abnormality identified 07/12/21 * CT (07/09/21) shows small ascites (was tapped 07/09/21)
--- NOTE | 2021-07-16 08:45 | PM.IMPN ---
Progress Note: A&P Assessment and Plan (1) Acute respiratory failure with hypoxia: Code(s): J96.01 - Acute respiratory failure with hypoxia Status: Acute Assessment and Plan: Flaring up at this time No O2 requirement Blood gas noted to show respiratory alkalosis with hypoxia Supplemental oxygen to maintain saturations greater than 90% Trend SpO2 Manage fluid status CTA denies pulmonary embolism (2) Cirrhosis: Code(s): K74.60 - Unspecified cirrhosis of liver Status: Acute Assessment and Plan: Known problem imposed by ETOH abuse and could also be imposed by hep C history GI consulted thank you Paracentesis ordered at this time Spironolactone also added Fluid restriction added 1500ml per day LFTs WNL (3) Hyponatremia: Code(s): E87.1 - Hypo-osmolality and hyponatremia Status: Acute Assessment and Plan: Na is 126 today, think that this might be related to the ascites of the abdomen. Paracentesis is ordered DC fluids, start spironolactone Urine studies ordered indicates that the patient is most likely dehydrated DC'd diuretics Trend labs Fluid restriction also added (4) Hypokalemia: Code(s): E87.6 - Hypokalemia Status: Acute Assessment and Plan: K today is 3.7 Probably related to diuretics, possible fluid overload Started spironolactone Replace with 40 PO and 40IV Trend labs Labs in the am (5) Enteritis: Code(s): K52.9 - Noninfective gastroenteritis and colitis, unspecified Status: Acute Assessment and Plan: Seen on the CT Sensitivities indicate cipro is good for UTI as well cipro flagyl started (6) Acute UTI: Code(s): N39.0 - Urinary tract infection, site not specified Status: Acute Assessment and Plan: Terri, 2+ blood, positive nitrites, 3+ leukocyte esterase, WBC >75, WBC clumps present, trace bacteria Could be related to some retention problems Culture found Enterobacter cloacae complex sensitivities include cipro will start that for enteritis monitor urine output monitor symptoms (7) Thrombocytopenia: Code(s): D69.6 - Thrombocytopenia, unspecified Status: Acute Assessment and Plan: Remains stable PLTs at 144 Known history Related to cirrhosis Trend labs (8) Fracture of right hip requiring operative repair: Code(s): S72.001A - Fracture of unspecified part of neck of right femur, initial encounter for closed fracture Status: Acute Assessment and Plan: S/P repair on 06/25/21 PT/OT Pain medications ordered (9) Urinary retention: Code(s): R33.9 - Retention of urine, unspecified Status: Acute Assessment and Plan: States that he does not feel that he is fully empting Post residual void, bladder scan PRN Start on finasteride Trend urine output Consider urinary catheter (10) Abdominal pain: Code(s): R10.9 - Unspecified abdominal pain Status: Acute Assessment and Plan: States sore and tender Lactic acid 1.9 on 07/13/21 Paracentesis was performed, 07/09/21, repeat ordered for today KUB No acute abdominal abnormality identified 07/12/21 CT (07/09/21) shows small ascites (was tapped 07/09/21), enteritis, and cirrhosis Did order repeat CT Complaints of abdominal pain on the LLQ Started some oral vanc since he is having frequent stools WBC is also elevated to 19, no steroids on board (11) CHF (congestive heart failure): Code(s): I50.9 - Heart failure, unspecified Status: Acute Assessment and Plan: 3-4+ pitting edema on right lower leg, getting better Echo grade 2 DD and EF of 65-70% CHF exacerbation of Diastolic dysfunction propanolol 60mg PO daily Albumin is 2.9, consider replacement with Lasix to see if the fluid comes off Changed to spironolactone 12.5mg PO
--- NOTE | 2021-07-16 09:23 | PCOTNOTE ---
Attempted to see patient this am, however patient declined at this time due to upset stomach/pain.
[2021-07-16] MEDS: traMADol HCL (*CRX) 50 MG TABLET PO (09:37)
--- NOTE | 2021-07-16 12:11 | WPDGIPROGNO ---
Progress Note: A&P Assessment and Plan (1) Cirrhosis: Code(s): K74.60 - Unspecified cirrhosis of liver Status: Acute Assessment and Plan: etiology is hepatitis C and alcohol abuse. He has been followed by hepatology at [facility] but over due for his visit (2) Ascites: Code(s): R18.8 - Other ascites Status: Acute Assessment and Plan: 07/15 nearly 3 L were drawn off today. He has been started on spironolactone. I explained to the patient a fluid restriction is very important. and that he will need to restrict sodium as well. He does not believe that he has been told that in the past. I explained him that he cannot have potato chips pretzels or any other snacks at a are high in sodium. Obviously he is been receiving IV fluids since admission which contributes to his ascites . 07/16 I spoke to him again about the need to restrict fluids and in particular sodium. He seemed still surprised about this knowledge. I am sure that he had been told this before or should have been told that. I told that he will need to follow up with a doctor at the [facility]. I am trying to find out the last name of the physician. He believes that she is the director of Gastroenterology at the [facility]--Dr. Domingo or Jyotsna . (3) Enteritis: Code(s): K52.9 - Noninfective gastroenteritis and colitis, unspecified Status: Acute Assessment and Plan: He has no symptoms of enteritis. This was a finding on CT scan was as a noted some small bowel mucosal thickening (4) Hypokalemia: Code(s): E87.6 - Hypokalemia Status: Acute Assessment and Plan: 07/15/21 potassium was 2.7 today. He has been given oral and IV potassium and also started on spironolactone 07/16/21 he did receive potassium supplement has been started on Aldactone which should keep his potassium from dropping further. It would probably be prudent to start him back on a low-dose of Lasix, at least 20 mg a day (5) Hepatitis C: Code(s): B19.20 - Unspecified viral hepatitis C without hepatic coma Status: Acute Assessment and Plan: this was treated at least 15 years ago and is inactive (6) Acute respiratory failure with hypoxia: Code(s): J96.01 - Acute respiratory failure with hypoxia Status: Acute Assessment and Plan: respiratory distress was his primary reason for hospitalization and reactivated today likely due to the accumulation of ascitic fluid. He still feels that he is not breathing like he should an must sit up to breathe (7) COVID-19: Code(s): U07.1 - COVID-19 Status: Acute Assessment and Plan: this seems to be inactive at this time. He was treated with supplemental oxygen and remdesivir as well as dexamethasone Subjective Date/time seen: 07/16/21 12:11 patient states he is still short of breath feels better sitting up as he is now. I told that it looks like he has lost a lb or 2 from the diuretics. 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
[2021-07-16 13:24] LABS: Basophils Percent Auto 0.2 % (0.2-1.2); Eosinophils Absolute Auto 0.3 K/mm3 (0-0.3); Eosinophils Percent Auto 1.3 % (0-4.4); Hemoglobin 13.8 g/dL (14.0-18.0); Immature Granulocyte Absolute 0.29 K/mm3 (0.00-0.031); Immature Granulocyte Percent A 1.5 % (0-0.5); Lymphocytes Absolute Auto 1.26 K/mm3 (0.9-3.2); Lymphocytes Percent Auto 6.5 % (18.3-44.2); Mean Corpuscular HGB Conc 32.9 g/dl (32-36); Mean Corpuscular Hemoglobin 30.3 pg (26-34); Mean Corpuscular Volume 92.3 fl (80-100); Monocytes Absolute Auto 2.2 K/mm3 (0.1-0.6); Monocytes Percent Auto 11.3 % (2.6-8.5); Neutrophils Absolute Auto 15.4 K/mm3 (1.3-6.7); Neutrophils Percent Auto 79.2 % (45.5-73.1); Platelet Count Result 144 k/mm3 (150-375); Red Blood Count 4.55 M/mm3 (4.6-6.20); Red Cell Distribution Width 15.1 % (11.5-14.5); White Blood Count 19.4 K/mm3 (4.5-10.0)
[2021-07-16 13:32] LABS: Alanine Aminotransferase 23 U/L (4-50); Albumin Level 3.1 g/dL (3.5-5.1); Alkaline Phosphatase 100 U/L (38-126); Anion Gap 5 mmol/L (8-16); Aspartate Amino Transferase 33 U/L (17-59); Blood Urea Nitrogen 19 mg/dL (9-20); Calcium 8.4 mg/dL (8.4-10.2); Carbon Dioxide 25 mmol/L (22-30); Chloride 96 mmol/L (98-107); Estimated CRCL calculation 69 ml/min; Estimated Glomerular Filt Rate > 60; Glucose 120 mg/dL (65-110); Magnesium 2.6 mg/dL (1.6-2.3); Potassium 3.7 mmol/L (3.4-5.0); Sodium 126 mmol/L (137-145)
[2021-07-16] MEDS: VANCOMYCIN ORAL 125 MG/2.5 ML SYRUP PO ×2 (15:56→17:30)
[2021-07-16] MEDS: HYDROcodone/acetaminophen (*CRX) 5-325 MG TABLET 1 TAB PO (17:45)
[2021-07-16] MEDS: MELATONIN 3 MG TABLET PO (20:39)
[2021-07-17] VITALS (9 sets, daily range): BP systolic 108–119; BP diastolic 55–64; PULSE 64–88; RESP 18; TEMP 36–36.6; O2SAT 93–97
[2021-07-17] MEDS: metroNIDAZOLE 250 MG TABLET 500 MG PO ×2 (00:36→05:32)
[2021-07-17] MEDS: VANCOMYCIN ORAL 125 MG/2.5 ML SYRUP PO ×4 (00:36→18:47)
[2021-07-17] MEDS: ALBUTEROL SULFATE (*SP) INHALER 2 PUFF INHALATION ×4 (02:28→20:44)
[2021-07-17 06:28] LABS: Basophils Percent Auto 0.2 % (0.2-1.2); Eosinophils Absolute Auto 0.2 K/mm3 (0-0.3); Eosinophils Percent Auto 1.5 % (0-4.4); Hematocrit 39.4 % (42.0-52.0); Hemoglobin 12.6 g/dL (14.0-18.0); Immature Granulocyte Absolute 0.14 K/mm3 (0.00-0.031); Lymphocytes Absolute Auto 1.36 K/mm3 (0.9-3.2); Lymphocytes Percent Auto 9.9 % (18.3-44.2); Mean Corpuscular Hemoglobin 30.4 pg (26-34); Mean Corpuscular Volume 94.9 fl (80-100); Mean Platelet Volume 12.3 fl (7.4-10.4); Monocytes Absolute Auto 1.8 K/mm3 (0.1-0.6); Neutrophils Absolute Auto 10.2 K/mm3 (1.3-6.7); Neutrophils Percent Auto 74.4 % (45.5-73.1); Platelet Count Result 106 k/mm3 (150-375); Red Blood Count 4.15 M/mm3 (4.6-6.20); Red Cell Distribution Width 15.3 % (11.5-14.5); White Blood Count 13.7 K/mm3 (4.5-10.0)
[2021-07-17 06:41] LABS: Alanine Aminotransferase 20 U/L (4-50); Albumin Level 2.9 g/dL (3.5-5.1); Alkaline Phosphatase 86 U/L (38-126); Anion Gap 2 mmol/L (8-16); Aspartate Amino Transferase 30 U/L (17-59); Bilirubin,Total 1.2 mg/dL (0.2-1.3); Blood Urea Nitrogen 18 mg/dL (9-20); Carbon Dioxide 29 mmol/L (22-30); Chloride 97 mmol/L (98-107); Estimated CRCL calculation 69 ml/min; Estimated Glomerular Filt Rate > 60; Glucose 93 mg/dL (65-110); Magnesium 2.5 mg/dL (1.6-2.3); Potassium 3.5 mmol/L (3.4-5.0); Sodium 128 mmol/L (137-145)
--- NOTE | 2021-07-17 08:15 | PM.IMPN ---
Progress Note: A&P Assessment and Plan (1) Leukocytosis: Code(s): D72.829 - Elevated white blood cell count, unspecified Status: Acute Assessment and Plan: 07/16/21 WBC elevated to 19.1 Today trending down and is 13.[address] shows no changes Oral vanco started since he is having frequent BMs, and elevated WBC No fever noted Completed a course of Cipro Flagyl for enteritis and UTI (2) Abdominal pain: Code(s): R10.9 - Unspecified abdominal pain Status: Acute Assessment and Plan: States sore and tender Very tender on physical exam Lactic acid 1.9 on 07/13/21 Paracentesis was performed, 07/09/21, repeat ordered for today KUB No acute abdominal abnormality identified 07/12/21 CT (07/09/21) shows small ascites (was tapped 07/09/21), enteritis, and cirrhosis Repeat CT did not show any changes Complaints of abdominal pain on the LLQ Started some oral vanc since he is having frequent stools WBC is also elevated to 19, trending down and is 13.7 today (3) Diarrhea: Code(s): R19.7 - Diarrhea, unspecified Status: Acute Assessment and Plan: Abd ct ordered Oral vanc started Pain also present Could be collitis or c.diff from the antibiotics Trend WBC as they are more elevated today at 19.4 (4) Acute respiratory failure with hypoxia: Code(s): J96.01 - Acute respiratory failure with hypoxia Status: Acute Assessment and Plan: Flaring up at this time, resolved after last paracentesis No O2 requirement Blood gas noted to show respiratory alkalosis with hypoxia Supplemental oxygen to maintain saturations greater than 90% Trend SpO2 Manage fluid status CTA denies pulmonary embolism (5) Cirrhosis: Code(s): K74.60 - Unspecified cirrhosis of liver Status: Acute Assessment and Plan: Known problem imposed by ETOH abuse and could also be imposed by hep C history GI consulted thank you Paracentesis ordered at this time Spironolactone also added Fluid restriction added 1500ml per day LFTs WNL (6) Hyponatremia: Code(s): E87.1 - Hypo-osmolality and hyponatremia Status: Acute Assessment and Plan: Na is 128 today, think that this might be related to the ascites of the abdomen. He does seem to be overloaded as well Paracentesis from 07/15/21 took off close to 3L DC fluids, start spironolactone Urine studies ordered indicates that the patient is most likely dehydrated Trend labs Fluid restriction also added (7) Hypokalemia: Code(s): E87.6 - Hypokalemia Status: Acute Assessment and Plan: K today is 3.5 Started spironolactone Trend labs Labs in the am (8) Enteritis: Code(s): K52.9 - Noninfective gastroenteritis and colitis, unspecified Status: Acute Assessment and Plan: Resolved Seen on the CT Sensitivities indicate cipro is good for UTI as well cipro flagyl started (9) Acute UTI: Code(s): N39.0 - Urinary tract infection, site not specified Status: Acute Assessment and Plan: Terri, 2+ blood, positive nitrites, 3+ leukocyte esterase, WBC >75, WBC clumps present, trace bacteria Could be related to some retention problems Culture found Enterobacter cloacae complex sensitivities include cipro will start that for enteritis monitor urine output monitor symptoms Probably resolved at this time (10) Thrombocytopenia: Code(s): D69.6 - Thrombocytopenia, unspecified Status: Acute Assessment and Plan: Remains stable PLTs at 106 Known history Related to cirrhosis Trend labs (11) Fracture of right hip requiring operative repair: Code(s): S72.001A - Fracture of unspecified part of neck of right femur, initial encounter for closed fracture Status: Acute Assessment and Plan: S/P repair on 06/25/21 PT/OT Andrea
--- NOTE | 2021-07-17 08:15 | P.PNIM_ITS ---
Progress Note: A&P Assessment and Plan (1) Leukocytosis: Code(s): D72.829 - Elevated white blood cell count, unspecified Status: Acute Assessment and Plan: * 07/16/21 WBC elevated to 19.1 * Today trending down and is 13.7 * Abd ct shows no changes * Oral vanco started since he is having frequent BMs, and elevated WBC * No fever noted * Completed a course of Cipro Flagyl for enteritis and UTI (2) Abdominal pain: Code(s): R10.9 - Unspecified abdominal pain Status: Acute Assessment and Plan: * States sore and tender * Very tender on physical exam * Lactic acid 1.9 on 07/13/21 * Paracentesis was performed, 07/09/21, repeat ordered for today * KUB No acute abdominal abnormality identified 07/12/21 * CT (07/09/21) shows small ascites (was tapped 07/09/21), enteritis, and cirrhosis * Repeat CT did not show any changes * Complaints of abdominal pain on the LLQ * Started some oral vanc since he is having frequent stools * WBC is also elevated to 19, trending down and is 13.7 today (3) Diarrhea: Code(s): R19.7 - Diarrhea, unspecified Status: Acute Assessment and Plan: * Abd ct ordered * Oral vanc started * Pain also present * Could be collitis or c.diff from the antibiotics * Trend WBC as they are more elevated today at 19.4 (4) Acute respiratory failure with hypoxia: Code(s): J96.01 - Acute respiratory failure with hypoxia Status: Acute Assessment and Plan: * Flaring up at this time, resolved after last paracentesis * No O2 requirement * Blood gas noted to show respiratory alkalosis with hypoxia * Supplemental oxygen to maintain saturations greater than 90% * Trend SpO2 * Manage fluid status * CTA denies pulmonary embolism (5) Cirrhosis: Code(s): K74.60 - Unspecified cirrhosis of liver Status: Acute Assessment and Plan: * Known problem imposed by ETOH abuse and could also be imposed by hep C history * GI consulted thank you * Paracentesis ordered at this time * Spironolactone also added * Fluid restriction added 1500ml per day * LFTs WNL (6) Hyponatremia: Code(s): E87.1 - Hypo-osmolality and hyponatremia Status: Acute Assessment and Plan: * Na is 128 today, think that this might be related to the ascites of the abdomen. * He does seem to be overloaded as well * Paracentesis from 07/15/21 took off close to 3L * DC fluids, start spironolactone * Urine studies ordered indicates that the patient is most likely dehydrated * Trend labs * Fluid restriction also added (7) Hypokalemia: Code(s): E87.6 - Hypokalemia Status: Acute Assessment and Plan: * K today is 3.5 * Started spironolactone * Trend labs * Labs in the am (8) Enteritis: Code(s): K52.9 - Noninfective gastroenteritis and colitis, unspecified Status: Acute Assessment and Plan: * Resolved * Seen on the CT * Sensitivities indicate cipro is good for UTI as well * cipro flagyl started (9) Acute UTI: Code(s): N39.0 - Urinary tract infection, site not specified Status: Acute Assessment and Plan: * Terri, 2+ blood, positive nitrites, 3+ leukocyte esterase, WBC >75, WBC clumps present, trace bacteria * Could be related to some retention problems * Culture found Enterobacter cloacae complex * sensitivities include cipro will start
[2021-07-17] MEDS: CHOLECALCIFEROL 1,000 UNITS TABLET 2000 UNITS PO (08:16)
[2021-07-17] MEDS: SACCHAROMYCES BOULARDII 250 MG CAPSULE PO ×3 (08:17→18:44)
[2021-07-17] MEDS: PROPRANOLOL HCL 60 MG CAPSULE CR PO (08:17)
[2021-07-17] MEDS: AZELASTINE HCL NASAL 0.1% 137 MCG/SPR 30 ML BTL 2 SPRAY NASAL ×2 (08:17→18:46)
[2021-07-17] MEDS: ESCITALOPRAM OXALATE 10 MG TABLET 20 MG PO (08:18)
[2021-07-17] MEDS: SPIRONOLACTONE 50 MG TABLET 100 MG PO ×2 (08:18→18:45)
[2021-07-17] MEDS: methocarbamoL 500 MG TABLET PO (08:18)
[2021-07-17] MEDS: FLUTICASONE PROPIONATE 0.05% NA SPR 16 GM BTL (*BKC) 2 SPRAY NASAL (08:18)
[2021-07-17] MEDS: FINASTERIDE 5 MG TABLET PO (08:18)
[2021-07-17] MEDS: ENOXAPARIN 40 MG/0.4 ML SYRINGE SUB-Q (08:18)
[2021-07-17] MEDS: CIPROFLOXACIN 500 MG TAB PO (08:18)
[2021-07-17] MEDS: LORATADINE 10 MG TABLET PO (08:18)
[2021-07-17] MEDS: LOPERAMIDE HCL 2 MG CAPSULE PO (08:24)
[2021-07-17] MEDS: methylPHENIDATE HCL (*CRX) 5 MG TABLET PO ×2 (08:25→18:47)
[2021-07-17] MEDS: HYDROcodone/acetaminophen (*CRX) 5-325 MG TABLET 1 TAB PO (08:25)
[2021-07-17] MEDS: FUROSEMIDE INJ 40 MG/4 ML VIAL IV PUSH (13:15)
[2021-07-17] MEDS: ACETAMINOPHEN 500 MG TABLET 1000 MG PO (14:48)
[2021-07-17] MEDS: MELATONIN 3 MG TABLET PO (20:30)
[2021-07-18] VITALS (9 sets, daily range): BP systolic 105–121; BP diastolic 57–63; PULSE 60–72; RESP 16–24; TEMP 36.3–36.6; O2SAT 94–95
[2021-07-18] MEDS: VANCOMYCIN ORAL 125 MG/2.5 ML SYRUP PO ×5 (01:09→23:08)
[2021-07-18] MEDS: ALBUTEROL SULFATE (*SP) INHALER 2 PUFF INHALATION ×4 (01:30→20:29)
--- NOTE | 2021-07-18 06:50 | WPDGIPROGNO ---
Progress Note: A&P Assessment and Plan (1) Cirrhosis: Code(s): K74.60 - Unspecified cirrhosis of liver Status: Acute Assessment and Plan: etiology is hepatitis C and alcohol abuse. He has been followed by hepatology at [facility] but over due for his visit (2) Ascites: Code(s): R18.8 - Other ascites Status: Acute Assessment and Plan: 07/15 nearly 3 L were drawn off today. He has been started on spironolactone. I explained to the patient a fluid restriction is very important. and that he will need to restrict sodium as well. He does not believe that he has been told that in the past. I explained him that he cannot have potato chips pretzels or any other snacks at a are high in sodium. Obviously he is been receiving IV fluids since admission which contributes to his ascites . 07/16 I spoke to him again about the need to restrict fluids and in particular sodium. He seemed still surprised about this knowledge. I am sure that he had been told this before or should have been told that. I told that he will need to follow up with a doctor at the [facility]. I am trying to find out the last name of the physician. He believes that she is the director of Gastroenterology at the [facility]--Dr. Domingo or Jyotsna . 07/18 Although his total weight is down. He is still quite edematous in the right lower extremity and now in the scrotum. He will need some IV albumin to help mobilize some of this 3rd space fluid and we should start him back on Lasix now that he has been started on a maintenance dose of Aldactone (3) Enteritis: Code(s): K52.9 - Noninfective gastroenteritis and colitis, unspecified Status: Acute Assessment and Plan: He has no symptoms of enteritis. This was a finding on CT scan was as a noted some small bowel mucosal thickening (4) Hypokalemia: Code(s): E87.6 - Hypokalemia Status: Acute Assessment and Plan: 07/15/21 potassium was 2.7 today. He has been given oral and IV potassium and also started on spironolactone 07/16/21 he did receive potassium supplement has been started on Aldactone which should keep his potassium from dropping further. It would probably be prudent to start him back on a low-dose of Lasix, I will begin 40 mg daily (5) Hepatitis C: Code(s): B19.20 - Unspecified viral hepatitis C without hepatic coma Status: Acute Assessment and Plan: this was treated at least 15 years ago and is inactive (6) Acute respiratory failure with hypoxia: Code(s): J96.01 - Acute respiratory failure with hypoxia Status: Acute Assessment and Plan: respiratory distress was his primary reason for hospitalization and reactivated today likely due to the accumulation of ascitic fluid. He still feels that he is not breathing like he should an must sit up to breathe (7) COVID-19: Code(s): U07.1 - COVID-19 Status: Acute Assessment and Plan: this seems to be inactive at this time. He was treated with supplemental oxygen and remdesivir as well as dexamethasone. I asked him if he knows the anticipated date of discharge and he does not Subjective Date/time seen: 07/18/21 06:50 Today he states that his scrotum is much more swollen than it has been. He does not believe that his abdomen is getting larger. His weight has dropped by about 3 kg on last few days, not quite reflected in his I and O's I think we might need to add back Lasix now and I will start him on some IV albumin. He definitely will need to follow-up with his six pack packer at the [place] when he gets out of here. Her name is Dr. Jyotsna Frank. Review of Systems Review of Systems: All systems reviewed & are unremarkable except as noted in HPI and below Exam Const: General: alert Nutritional Appearance: overweight and edematous Orientation/consciousness: patient oriented x3 Resp: Auscultation: clear to auscultation b
[2021-07-18 07:31] LABS: Basophils Percent Auto 0.2 % (0.2-1.2); Eosinophils Absolute Auto 0.2 K/mm3 (0-0.3); Eosinophils Percent Auto 1.7 % (0-4.4); Hematocrit 38.8 % (42.0-52.0); Hemoglobin 12.6 g/dL (14.0-18.0); Immature Granulocyte Absolute 0.12 K/mm3 (0.00-0.031); Lymphocytes Absolute Auto 1.26 K/mm3 (0.9-3.2); Lymphocytes Percent Auto 10.2 % (18.3-44.2); Mean Corpuscular HGB Conc 32.5 g/dl (32-36); Mean Corpuscular Hemoglobin 30.4 pg (26-34); Mean Corpuscular Volume 93.5 fl (80-100); Mean Platelet Volume 12.5 fl (7.4-10.4); Monocytes Absolute Auto 1.6 K/mm3 (0.1-0.6); Monocytes Percent Auto 12.9 % (2.6-8.5); Neutrophils Absolute Auto 9.2 K/mm3 (1.3-6.7); Platelet Count Result 102 k/mm3 (150-375); Red Blood Count 4.15 M/mm3 (4.6-6.20); Red Cell Distribution Width 15.7 % (11.5-14.5); White Blood Count 12.4 K/mm3 (4.5-10.0)
[2021-07-18 07:41] LABS: Alanine Aminotransferase 19 U/L (4-50); Albumin Level 2.9 g/dL (3.5-5.1); Alkaline Phosphatase 82 U/L (38-126); Anion Gap 3 mmol/L (8-16); Aspartate Amino Transferase 31 U/L (17-59); Bilirubin,Total 1.2 mg/dL (0.2-1.3); Blood Urea Nitrogen 18 mg/dL (9-20); Carbon Dioxide 30 mmol/L (22-30); Chloride 97 mmol/L (98-107); Estimated CRCL calculation 63 ml/min; Estimated Glomerular Filt Rate > 60; Glucose 89 mg/dL (65-110); Magnesium 2.4 mg/dL (1.6-2.3); Potassium 3.8 mmol/L (3.4-5.0); Sodium 130 mmol/L (137-145)
[2021-07-18] MEDS: ALBUMIN HUMAN 25% 25 GM/100 ML 100 ML IVPB ×3 (08:58→20:01)
[2021-07-18] MEDS: ENOXAPARIN 40 MG/0.4 ML SYRINGE SUB-Q (08:58)
[2021-07-18] MEDS: FINASTERIDE 5 MG TABLET PO (08:59)
[2021-07-18] MEDS: SACCHAROMYCES BOULARDII 250 MG CAPSULE PO ×3 (08:59→17:16)
[2021-07-18] MEDS: SPIRONOLACTONE 50 MG TABLET 100 MG PO ×2 (08:59→17:16)
[2021-07-18] MEDS: CHOLECALCIFEROL 1,000 UNITS TABLET 2000 UNITS PO (08:59)
[2021-07-18] MEDS: ESCITALOPRAM OXALATE 10 MG TABLET 20 MG PO (08:59)
[2021-07-18] MEDS: FLUTICASONE PROPIONATE 0.05% NA SPR 16 GM BTL (*BKC) 2 SPRAY NASAL (09:00)
[2021-07-18] MEDS: PROPRANOLOL HCL 60 MG CAPSULE CR PO (09:00)
[2021-07-18] MEDS: AZELASTINE HCL NASAL 0.1% 137 MCG/SPR 30 ML BTL 2 SPRAY NASAL ×2 (09:00→17:17)
[2021-07-18] MEDS: LORATADINE 10 MG TABLET PO (09:00)
[2021-07-18] MEDS: methocarbamoL 500 MG TABLET PO ×2 (09:01→19:56)
--- NOTE | 2021-07-18 10:18 | P.PNIM_ITS ---
Progress Note: A&P Assessment and Plan (1) Leukocytosis: Code(s): D72.829 - Elevated white blood cell count, unspecified Status: Acute Assessment and Plan: * WBC elevated to 19.4, then improved to 12.4 with PO Vanc today * Abd ct shows no changes * Oral vanco started since he is having frequent BMs, and elevated WBC * No fever noted, WBC improving. * to Rocephin for UTI, then Flagyl and Cipro from to Jul.17 for Enteritis, then PO Vanc started Jul.16 to now for possible C.Diff. (2) Abdominal pain: Code(s): R10.9 - Unspecified abdominal pain Status: Acute Assessment and Plan: * States sore and tender * Tender on physical exam, at paracentesis site. * Lactic acid 1.9 on 07/13/21 * Paracentesis was performed, 07/09/21, * KUB No acute abdominal abnormality identified 07/12/21 * CT (07/09/21) shows small ascites (was tapped 07/09/21), enteritis, and cirrhosis * Repeat CT did not show any changes * Complaints of abdominal pain on the LLQ, at paracentesis site. * Started some oral vanc since he is having frequent stools * Trend WBC as they elevated at 19.4, improved to 12.4 with PO Vanc (3) Diarrhea: Code(s): R19.7 - Diarrhea, unspecified Status: Acute Assessment and Plan: * Abd ct ordered * Oral vanc started * Pain also present * Could be collitis or c.diff from the antibiotics * probiotics started * Trend WBC as they elevated at 19.4, improved to 12.4 with PO Vanc (4) Acute respiratory failure with hypoxia: Code(s): J96.01 - Acute respiratory failure with hypoxia Status: Acute Assessment and Plan: * Flaring up at admission, resolved after last paracentesis and after most recent paracentesis * respiratory distress was his primary reason for hospitalization and reactivated today likely due to the accumulation of ascitic fluid. respiratory status waxes and wanes with his level of ascites present abdominally. * not struggling to breath, comfortable at rest, lying back in bed comfortably. * No O2 requirement, no dyspnea, talking and showing no SOB. * Blood gas noted to show respiratory alkalosis with hypoxia * now on room air * Trend SpO2 * Manage fluid status * CTA denies pulmonary embolism, rechecking D-dimer (5) Cirrhosis: Code(s): K74.60 - Unspecified cirrhosis of liver Status: Acute Assessment and Plan: * Known problem imposed by ETOH abuse and could also be imposed by hep C history * GI consulted thank you * Paracentesis PRN * Spironolactone * Fluid restriction added 1500ml per day * LFTs WNL * followed by hepatology at [facility] (6) Hyponatremia: Code(s): E87.1 - Hypo-osmolality and hyponatremia Status: Acute Assessment and Plan: * IMPROVED. * Na is 130 today, related to the ascites or diruetics or fluid overload. * monitoring now that lasix restarted. * Urine studies ordered indicates that the patient is most likely dehydrated * Trend labs * Fluid restriction also added, on heart healthy diet and could change to Regular Diet if more Sodium needed. (7) Hypokalemia: Code(s): E87.6 - Hypokalemia Status: Acute Assessment and Plan: * RESOLVED, but watch levels with med changes. * K today is 3.8 * on spironolactone * Trend labs * Labs in the am * will need to watch K levels now that IV Lasix has been restarted on 07/18/21 (8) Enteritis: Code(s): K52.9 - Noninfective gastroenteritis and colitis, unspecified Status: Acute Assess
--- NOTE | 2021-07-18 10:18 | PM.IMPN ---
Progress Note: A&P Assessment and Plan (1) Leukocytosis: Code(s): D72.829 - Elevated white blood cell count, unspecified Status: Acute Assessment and Plan: WBC elevated to 19.4, then improved to 12.4 with PO Vanc today Abd ct shows no changes Oral vanco started since he is having frequent BMs, and elevated WBC No fever noted, WBC improving. to Rocephin for UTI, then Flagyl and Cipro from to Jul.17 for Enteritis, then PO Vanc started Jul.16 to now for possible C.Diff. (2) Abdominal pain: Code(s): R10.9 - Unspecified abdominal pain Status: Acute Assessment and Plan: States sore and tender Tender on physical exam, at paracentesis site. Lactic acid 1.9 on 07/13/21 Paracentesis was performed, 07/09/21, KUB No acute abdominal abnormality identified 07/12/21 CT (07/09/21) shows small ascites (was tapped 07/09/21), enteritis, and cirrhosis Repeat CT did not show any changes Complaints of abdominal pain on the LLQ, at paracentesis site. Started some oral vanc since he is having frequent stools Trend WBC as they elevated at 19.4, improved to 12.4 with PO Vanc (3) Diarrhea: Code(s): R19.7 - Diarrhea, unspecified Status: Acute Assessment and Plan: Abd ct ordered Oral vanc started Pain also present Could be collitis or c.diff from the antibiotics probiotics started Trend WBC as they elevated at 19.4, improved to 12.4 with PO Vanc (4) Acute respiratory failure with hypoxia: Code(s): J96.01 - Acute respiratory failure with hypoxia Status: Acute Assessment and Plan: Flaring up at admission, resolved after last paracentesis and after most recent paracentesis respiratory distress was his primary reason for hospitalization and reactivated today likely due to the accumulation of ascitic fluid. respiratory status waxes and wanes with his level of ascites present abdominally. not struggling to breath, comfortable at rest, lying back in bed comfortably. No O2 requirement, no dyspnea, talking and showing no SOB. Blood gas noted to show respiratory alkalosis with hypoxia now on room air Trend SpO2 Manage fluid status CTA denies pulmonary embolism, rechecking D-dimer (5) Cirrhosis: Code(s): K74.60 - Unspecified cirrhosis of liver Status: Acute Assessment and Plan: Known problem imposed by ETOH abuse and could also be imposed by hep C history GI consulted thank you Paracentesis PRN Spironolactone Fluid restriction added 1500ml per day LFTs WNL followed by hepatology at [facility] (6) Hyponatremia: Code(s): E87.1 - Hypo-osmolality and hyponatremia Status: Acute Assessment and Plan: IMPROVED. Na is 130 today, related to the ascites or diruetics or fluid overload. monitoring now that lasix restarted. Urine studies ordered indicates that the patient is most likely dehydrated Trend labs Fluid restriction also added, on heart healthy diet and could change to Regular Diet if more Sodium needed. (7) Hypokalemia: Code(s): E87.6 - Hypokalemia Status: Acute Assessment and Plan: RESOLVED, but watch levels with med changes. K today is 3.8 on spironolactone Trend labs Labs in the am will need to watch K levels now that IV Lasix has been restarted on 07/18/21 (8) Enteritis: Code(s): K52.9 - Noninfective gastroenteritis and colitis, unspecified Status: Acute Assessment and Plan: Likely treated and Resolved Seen on the CT Sensitivities indicate cipro is good for UTI as well to Rocephin for UTI, then Flagyl and Cipro from to Jul.17 for Enteritis, then PO Vanc started Jul.16 to now for possible C.Diff. Abd pain may be related to Enteritis; a finding on CT scan was as a noted some small bowel mucosal thickening (9) Acute UTI: Code(s): N39.0 - Urinary tract infection,
[2021-07-18] MEDS: methylPHENIDATE HCL (*CRX) 5 MG TABLET PO ×2 (10:48→17:15)
[2021-07-18] MEDS: LOPERAMIDE HCL 2 MG CAPSULE PO (10:48)
[2021-07-18] MEDS: FUROSEMIDE 40 MG TABLET PO (10:48)
--- NOTE | 2021-07-18 13:44 | PCPTNOTE ---
Patient declined PT this afternoon. Patient states he is not feeling well. Patient states he has abdominal pain and whenever he eats anything it goes right through me. PT will continue to follow per plan of care.
--- NOTE | 2021-07-18 15:01 | PCOTNOTE ---
Attempted to see patient this am, however patient refused due to stomach pain. Per [employer] in PM, patient still having stomach pain and diarrhea with movement and declined therapy in PM. Pt not seen for this reason.
[2021-07-18] MEDS: HYDROcodone/acetaminophen (*CRX) 5-325 MG TABLET 1 TAB PO (17:15)
[2021-07-18] MEDS: DOCUSATE SODIUM 100 MG CAPSULE PO (19:58)
[2021-07-18] MEDS: MELATONIN 3 MG TABLET PO (23:08)
[2021-07-19] MEDS: ALBUMIN HUMAN 25% 25 GM/100 ML 100 ML IVPB ×3 (03:02→20:51)
[2021-07-19 05:58] VITALS: BP 111/69; PULSE 65; RESP 18; TEMP 36.5; O2SAT 91
[2021-07-19] MEDS: VANCOMYCIN ORAL 125 MG/2.5 ML SYRUP PO ×4 (06:44→23:17)
[2021-07-19 07:00] LABS: Hematocrit 34.5 % (42.0-52.0); Mean Corpuscular HGB Conc 31.9 g/dl (32-36); Mean Corpuscular Hemoglobin 30.1 pg (26-34); Mean Corpuscular Volume 94.5 fl (80-100); Mean Platelet Volume 12.2 fl (7.4-10.4); Platelet Count Result 78 k/mm3 (150-375); Red Blood Count 3.65 M/mm3 (4.6-6.20); Red Cell Distribution Width 15.8 % (11.5-14.5); White Blood Count 8.5 K/mm3 (4.5-10.0)
[2021-07-19 07:11] LABS: Alanine Aminotransferase 14 U/L (4-50); Albumin Level 3.5 g/dL (3.5-5.1); Alkaline Phosphatase 62 U/L (38-126); Anion Gap 4 mmol/L (8-16); Aspartate Amino Transferase 27 U/L (17-59); Bilirubin,Total 1.4 mg/dL (0.2-1.3); Blood Urea Nitrogen 17 mg/dL (9-20); Calcium 8.2 mg/dL (8.4-10.2); Carbon Dioxide 29 mmol/L (22-30); Chloride 99 mmol/L (98-107); Estimated CRCL calculation 69 ml/min; Estimated Glomerular Filt Rate > 60; Glucose 92 mg/dL (65-110); Phosphorus 3.6 mg/dL (2.5-4.5); Potassium 3.6 mmol/L (3.4-5.0); Sodium 132 mmol/L (137-145)
[2021-07-19 07:27] LABS: D Dimer 3.96 ug/mL (<0.48)
[2021-07-19] MEDS: ALBUTEROL SULFATE (*SP) INHALER 2 PUFF INHALATION ×3 (08:21→20:22)
[2021-07-19 08:22] VITALS: O2SAT 95
[2021-07-19] MEDS: BACITRACIN OINTMENT 15 GM TUBE 1 APPLIC TOPICAL (08:27)
[2021-07-19 08:28] VITALS: PULSE 70
[2021-07-19] MEDS: LORATADINE 10 MG TABLET PO (08:28)
[2021-07-19] MEDS: SPIRONOLACTONE 50 MG TABLET 100 MG PO ×2 (08:28→17:22)
[2021-07-19] MEDS: PROPRANOLOL HCL 60 MG CAPSULE CR PO (08:28)
[2021-07-19] MEDS: CHOLECALCIFEROL 1,000 UNITS TABLET 2000 UNITS PO (08:28)
[2021-07-19] MEDS: ENOXAPARIN 40 MG/0.4 ML SYRINGE SUB-Q (08:28)
[2021-07-19] MEDS: methocarbamoL 500 MG TABLET PO (08:28)
[2021-07-19] MEDS: SACCHAROMYCES BOULARDII 250 MG CAPSULE PO ×3 (08:28→17:22)
[2021-07-19] MEDS: FINASTERIDE 5 MG TABLET PO (08:29)
[2021-07-19] MEDS: DOCUSATE SODIUM 100 MG CAPSULE PO ×2 (08:29→20:51)
[2021-07-19] MEDS: methylPHENIDATE HCL (*CRX) 5 MG TABLET PO ×2 (08:29→17:22)
[2021-07-19] MEDS: ESCITALOPRAM OXALATE 10 MG TABLET 20 MG PO (08:29)
[2021-07-19] MEDS: FUROSEMIDE 40 MG TABLET PO (08:29)
[2021-07-19] MEDS: AZELASTINE HCL NASAL 0.1% 137 MCG/SPR 30 ML BTL 2 SPRAY NASAL ×2 (08:30→17:21)
[2021-07-19] MEDS: FLUTICASONE PROPIONATE 0.05% NA SPR 16 GM BTL (*BKC) 2 SPRAY NASAL (08:30)
--- NOTE | 2021-07-19 08:30 | PCPTNOTE ---
PT order received for fecal incontinence and pelvic floor exercises; specialty therapist for pelvic health is not available today, on Wednesday. will refer pt to her on Wednesday.
[2021-07-19] MEDS: PSYLLIUM POWDER PACKET 1 PACKET PO (08:31)
[2021-07-19] MEDS: LOPERAMIDE HCL 2 MG CAPSULE PO (11:58)
[2021-07-19] MEDS: HYDROcodone/acetaminophen (*CRX) 5-325 MG TABLET 1 TAB PO ×2 (11:58→23:17)
--- NOTE | 2021-07-19 12:13 | P.PNIM_ITS ---
Progress Note: A&P Assessment and Plan (1) Leukocytosis: Code(s): D72.829 - Elevated white blood cell count, unspecified Status: Acute Assessment and Plan: WBC elevated to 19.4-->12.4-->11 today PO Vanc today Abd ct shows no changes Oral vanco started since he is having frequent BMs, and elevated WBC No fever noted, WBC improving. to Rocephin for UTI, then Flagyl and Cipro from to Jul.17 for Enteritis, then PO Vanc started Jul.16 to now for possible C.Diff (2) Abdominal pain: Code(s): R10.9 - Unspecified abdominal pain Status: Acute Assessment and Plan: States sore and tender Tender on physical exam, at paracentesis site Lactic acid 1.9 on 07/13/21 Paracentesis was performed, 07/09/21, KUB No acute abdominal abnormality identified 07/12/21 CT (07/09/21) shows small ascites (was tapped 07/09/21), enteritis, and cirrhosis Repeat CT did not show any changes Complaints of abdominal pain on the LLQ, at paracentesis site. Started some oral vanc since he is having frequent stools Trend WBC as they elevated at 19.4, improved to 12.4 with PO Vanc (3) Diarrhea: Code(s): R19.7 - Diarrhea, unspecified Status: Acute Assessment and Plan: Abd ct ordered Oral vanc started Pain also present Could be collitis or c.diff from the antibiotics probiotics started Trend WBC as they elevated at 19.4-->12.4-->11 today with PO Vanc (4) Acute respiratory failure with hypoxia: Code(s): J96.01 - Acute respiratory failure with hypoxia Status: Acute Assessment and Plan: Resolved Flaring up at admission, resolved after last paracentesis and after most recent paracentesis respiratory distress was his primary reason for hospitalization and reactivated today likely due to the accumulation of ascitic fluid. respiratory status waxes and wanes with his level of ascites present abdominally. not struggling to breath, comfortable at rest, lying back in bed comfortably. No O2 requirement, no dyspnea, talking and showing no SOB. Blood gas noted to show respiratory alkalosis with hypoxia now on room air Trend SpO2 Manage fluid status CTA denies pulmonary embolism (5) Cirrhosis: Code(s): K74.60 - Unspecified cirrhosis of liver Status: Acute Assessment and Plan: Known problem imposed by ETOH abuse and could also be imposed by hep C history GI consulted, recommendations apprecaited Paracentesis PRN Spironolactone Fluid restriction added 1500ml per day LFTs WNL followed by hepatology at [facility] (6) Hyponatremia: Code(s): E87.1 - Hypo-osmolality and hyponatremia Status: Acute Assessment and Plan: IMPROVED. Na 130-->132 today, related to the ascites or diuretics or fluid overload monitoring now that Lasix restarted Urine studies ordered indicates that the patient is most likely dehydrated Trend labs Fluid restriction also added, on heart healthy diet and could change to Regular Diet if more Sodium needed. (7) Hypokalemia: Code(s): E87.6 - Hypokalemia Status: Acute Assessment and Plan: RESOLVED, but watch levels with med changes. K 3.8-->3.6 today on spironolactone Trend labs will need to watch K levels now that IV Lasix has been restarted on 07/18/21 (8) Enteritis: Code(s): K52.9 - Noninfective gastroenteritis and colitis, unspecified Status: Acute Assessment and Plan: Likely treated and Resolved Seen on the CT Sensitivities indicate cipro is good for UTI as
[2021-07-19 14:00] VITALS: BP 115/54; PULSE 70; RESP 12; TEMP 36.2; O2SAT 95
[2021-07-19] MEDS: ACETAMINOPHEN 500 MG TABLET 1000 MG PO (17:22)
[2021-07-19 20:23] VITALS: O2SAT 94
[2021-07-19] MEDS: MELATONIN 3 MG TABLET PO (20:51)
[2021-07-19] MEDS: traMADol HCL (*CRX) 50 MG TABLET PO (20:55)
[2021-07-19 21:52] VITALS: BP 113/60; PULSE 70; RESP 18; TEMP 36.4; O2SAT 94
[2021-07-20] VITALS (18 sets, daily range): BP systolic 103–139; BP diastolic 58–94; PULSE 66–162; RESP 20–26; TEMP 36.4–36.9; O2SAT 70–94
[2021-07-20] MEDS: ALBUTEROL SULFATE (*SP) INHALER 2 PUFF INHALATION (02:18)
[2021-07-20] MEDS: ALBUMIN HUMAN 25% 25 GM/100 ML 100 ML IVPB ×4 (02:52→21:10)
--- NOTE | 2021-07-20 04:04 | ECG_ITS ---
Measurements Intervals [place] Rate: 163 P: GA: 0 QRS: -5 QRSD: 80 T: 32 QT: 263 QTc: 434 Interpretive Statements ATRIAL FIBRILLATION WITH RAPID VENTRICULAR RESPONSE BASELINE ARTIFACT- I, II, III, AVR, AVL, AVF ABNORMAL ECG Electronically Signed On 07-20-2021 7:39:31 [employer] by Dani Suarez D.O.
[2021-07-20] MEDS: IPRATROPIUM BR 0.02% INH SOLN 0.5 MG/2.5 ML VIAL INHALATION (04:32)
[2021-07-20] MEDS: ALBUTEROL SULFATE NEB 2.5 MG/3 ML INH 1.25 MG INHALATION (04:32)
--- NOTE | 2021-07-20 04:39 | PC.NURSE ---
Report Given to Beverly, patient being moved to room 214. Pt alert and oriented x3 and aware of transfer.
[2021-07-20] MEDS: dilTIAZem 100 MG/100 ML 100 MG/100 ML BAG IV CONT (05:27)
[2021-07-20] MEDS: VANCOMYCIN ORAL 125 MG/2.5 ML SYRUP PO ×4 (05:35→23:03)
[2021-07-20 07:39] LABS: Hematocrit 36.4 % (42.0-52.0); Hemoglobin 11.5 g/dL (14.0-18.0); Immature Platelet Fraction Pct 7.3 % (0.9-11.2); Mean Corpuscular HGB Conc 31.6 g/dl (32-36); Mean Corpuscular Hemoglobin 30.2 pg (26-34); Mean Corpuscular Volume 95.5 fl (80-100); Mean Platelet Volume 11.7 fl (7.4-10.4); Platelet Count Result 91 k/mm3 (150-375); Red Blood Count 3.81 M/mm3 (4.6-6.20); Red Cell Distribution Width 16.3 % (11.5-14.5)
[2021-07-20 07:46] LABS: Anion Gap 6 mmol/L (8-16); Blood Urea Nitrogen 18 mg/dL (9-20); Calcium 8.4 mg/dL (8.4-10.2); Carbon Dioxide 26 mmol/L (22-30); Chloride 102 mmol/L (98-107); Estimated CRCL calculation 88 ml/min; Estimated Glomerular Filt Rate > 60; Glucose 105 mg/dL (65-110); Potassium 3.6 mmol/L (3.4-5.0); Sodium 134 mmol/L (137-145)
[2021-07-20 07:47] LABS: INR 1.5; Prothrombin Time 17.8 Seconds (11.1-14.7)
[2021-07-20 07:48] LABS: Partial Thromboplastin Time 32.7 SECONDS (22.3-36.8)
--- NOTE | 2021-07-20 10:30 | PM.IMPN ---
Progress Note: A&P Assessment and Plan (1) Leukocytosis: Code(s): D72.829 - Elevated white blood cell count, unspecified Status: Acute Assessment and Plan: WBC elevated to 19.4-->12.4-->11 today PO Vanc today Abd ct shows no changes Oral vanco started since he is having frequent BMs, and elevated WBC No fever noted, WBC improving. to Rocephin for UTI, then Flagyl and Cipro from to Jul.17 for Enteritis, then PO Vanc started Jul.16 to now for possible C.Diff (2) Abdominal pain: Code(s): R10.9 - Unspecified abdominal pain Status: Acute Assessment and Plan: States sore and tender Tender on physical exam, at paracentesis site Lactic acid 1.9 on 07/13/21 Paracentesis was performed, 07/09/21, KUB No acute abdominal abnormality identified 07/12/21 CT (07/09/21) shows small ascites (was tapped 07/09/21), enteritis, and cirrhosis Repeat CT did not show any changes Complaints of abdominal pain on the LLQ, at paracentesis site. Started some oral vanc since he is having frequent stools Trend WBC as they elevated at 19.4, improved to 12.4 with PO Vanc (3) Diarrhea: Code(s): R19.7 - Diarrhea, unspecified Status: Acute Assessment and Plan: Abd ct ordered Oral vanc started Pain also present Could be collitis or c.diff from the antibiotics probiotics started Trend WBC as they elevated at 19.4-->12.4-->11 today with PO Vanc (4) Acute respiratory failure with hypoxia: Code(s): J96.01 - Acute respiratory failure with hypoxia Status: Acute Assessment and Plan: Resolved Flaring up at admission, resolved after last paracentesis and after most recent paracentesis respiratory distress was his primary reason for hospitalization and reactivated today likely due to the accumulation of ascitic fluid. respiratory status waxes and wanes with his level of ascites present abdominally. not struggling to breath, comfortable at rest, lying back in bed comfortably. No O2 requirement, no dyspnea, talking and showing no SOB. Blood gas noted to show respiratory alkalosis with hypoxia now on room air Trend SpO2 Manage fluid status CTA denies pulmonary embolism (5) Cirrhosis: Code(s): K74.60 - Unspecified cirrhosis of liver Status: Acute Assessment and Plan: Known problem imposed by ETOH abuse and could also be imposed by hep C history GI consulted, recommendations apprecaited Paracentesis PRN Spironolactone Fluid restriction added 1500ml per day LFTs WNL followed by hepatology at [facility] (6) Hyponatremia: Code(s): E87.1 - Hypo-osmolality and hyponatremia Status: Acute Assessment and Plan: IMPROVED. Na 130-->132 today, related to the ascites or diuretics or fluid overload monitoring now that Lasix restarted Urine studies ordered indicates that the patient is most likely dehydrated Trend labs Fluid restriction also added, on heart healthy diet and could change to Regular Diet if more Sodium needed. (7) Hypokalemia: Code(s): E87.6 - Hypokalemia Status: Acute Assessment and Plan: RESOLVED, but watch levels with med changes. K 3.8-->3.6 today on spironolactone Trend labs will need to watch K levels now that IV Lasix has been restarted on 07/18/21 (8) Enteritis: Code(s): K52.9 - Noninfective gastroenteritis and colitis, unspecified Status: Acute Assessment and Plan: Likely treated and Resolved Seen on the CT Sensitivities indicate cipro is good for UTI as well to Rocephin for UTI, then Flagyl and Cipro from to Jul. for Enteritis, then PO Vanc started Jul.16 to now for possible C.Diff. Abd pain may be related to Enteritis; a finding on CT scan was as a noted some small bowel mucosal thickening (9) Acute UTI: Code(s): N39.0 - Urinary tract infection, site not specified Status: Acute Assessment and Plan:
--- NOTE | 2021-07-20 10:32 | PCPTNOTE ---
HOLD PT today; pt moved from regular floor to IMU. Will have to check with nursing or get a new order to continue PT treatment.
[2021-07-20] MEDS: HYDROcodone/acetaminophen (*CRX) 5-325 MG TABLET 1 TAB PO ×2 (10:39→18:31)
[2021-07-20] MEDS: CHOLECALCIFEROL 1,000 UNITS TABLET 2000 UNITS PO (10:40)
[2021-07-20] MEDS: FUROSEMIDE 40 MG TABLET PO (10:41)
[2021-07-20] MEDS: PROPRANOLOL HCL 60 MG CAPSULE CR PO (10:41)
[2021-07-20] MEDS: SPIRONOLACTONE 50 MG TABLET 100 MG PO ×2 (10:43→18:32)
[2021-07-20] MEDS: methylPHENIDATE HCL (*CRX) 5 MG TABLET PO ×2 (10:43→18:31)
[2021-07-20] MEDS: FINASTERIDE 5 MG TABLET PO (10:43)
[2021-07-20] MEDS: ESCITALOPRAM OXALATE 10 MG TABLET 20 MG PO (10:43)
[2021-07-20] MEDS: LORATADINE 10 MG TABLET PO (10:43)
[2021-07-20] MEDS: BACITRACIN OINTMENT 15 GM TUBE 1 APPLIC TOPICAL (10:46)
--- NOTE | 2021-07-20 14:40 | PCOTNOTE ---
HOLD OT today; pt moved from regular floor to IMU. Will have to check with nursing or get a new order to continue OT treatment.
[2021-07-20] MEDS: traMADol HCL (*CRX) 50 MG TABLET PO ×2 (14:56→23:03)
--- NOTE | 2021-07-20 15:16 | PC.NURSE ---
Notified Dr. Sewell of patient's increased oxygen need, now on high-flow at 8L and of patient coughing up pink-tinged mucus. No new orders at this time.
[2021-07-20] MEDS: SACCHAROMYCES BOULARDII 250 MG CAPSULE PO (18:32)
[2021-07-20] MEDS: methocarbamoL 500 MG TABLET PO (21:11)
[2021-07-20] MEDS: MELATONIN 3 MG TABLET PO (21:11)
[2021-07-20] MEDS: ACETAMINOPHEN 500 MG TABLET 1000 MG PO (21:14)
[2021-07-21] VITALS (31 sets, daily range): BP systolic 128–138; BP diastolic 68–81; PULSE 78–160; RESP 20–94; TEMP 36.4–36.7; O2SAT 84–100
[2021-07-21] MEDS: FUROSEMIDE INJ 40 MG/4 ML VIAL IV PUSH ×3 (00:27→17:19)
[2021-07-21] MEDS: BUMETANIDE INJ 2.5 MG/10 ML VIAL IV PUSH (00:29)
[2021-07-21] MEDS: ALBUMIN HUMAN 25% 25 GM/100 ML 100 ML IVPB ×3 (03:57→17:26)
[2021-07-21] MEDS: VANCOMYCIN ORAL 125 MG/2.5 ML SYRUP PO ×3 (05:27→17:18)
--- NOTE | 2021-07-21 07:27 | WPDGIPROGNO ---
Progress Note: A&P Assessment and Plan (1) Cirrhosis: Code(s): K74.60 - Unspecified cirrhosis of liver Status: Acute Assessment and Plan: etiology is hepatitis C and alcohol abuse. He has been followed by hepatology at [facility] but over due for his visit (2) Ascites: Code(s): R18.8 - Other ascites Status: Acute Assessment and Plan: 07/15 nearly 3 L were drawn off today. He has been started on spironolactone. I explained to the patient a fluid restriction is very important. and that he will need to restrict sodium as well. He does not believe that he has been told that in the past. I explained him that he cannot have potato chips pretzels or any other snacks at a are high in sodium. Obviously he is been receiving IV fluids since admission which contributes to his ascites . 07/16 I spoke to him again about the need to restrict fluids and in particular sodium. He seemed still surprised about this knowledge. I am sure that he had been told this before or should have been told that. I told that he will need to follow up with a doctor at the [facility]. I am trying to find out the last name of the physician. He believes that she is the director of Gastroenterology at the [place]--Dr. Domingo or Jyotsna . 07/18 Although his total weight is down. He is still quite edematous in the right lower extremity and now in the scrotum. He will need some IV albumin to help mobilize some of this 3rd space fluid and we should start him back on Lasix now that he has been started on a maintenance dose of Aldactone 07/21 today unfortunately his weight is 102 kg. He states that he was short of breath yesterday and could not eat much in the evening. Today he is lying flat in bed and talking without significant evidence of dyspnea, able to complete sentences. (3) Enteritis: Code(s): K52.9 - Noninfective gastroenteritis and colitis, unspecified Status: Acute Assessment and Plan: He has no symptoms of enteritis. This was a finding on CT scan was as a noted some small bowel mucosal thickening (4) Hypokalemia: Code(s): E87.6 - Hypokalemia Status: Acute Assessment and Plan: 07/15/21 potassium was 2.7 today. He has been given oral and IV potassium and also started on spironolactone 07/16/21 he did receive potassium supplement has been started on Aldactone which should keep his potassium from dropping further. It would probably be prudent to start him back on a low-dose of Lasix, I will begin 40 mg daily (5) Hepatitis C: Code(s): B19.20 - Unspecified viral hepatitis C without hepatic coma Status: Acute Assessment and Plan: this was treated at least 15 years ago and is inactive (6) Acute respiratory failure with hypoxia: Code(s): J96.01 - Acute respiratory failure with hypoxia Status: Acute Assessment and Plan: respiratory distress was his primary reason for hospitalization and reactivated today likely due to the accumulation of ascitic fluid. He still feels that he is not breathing like he should an must sit up to breathe (7) COVID-19: Code(s): U07.1 - COVID-19 Status: Acute Assessment and Plan: this seems to be inactive at this time. He was treated with supplemental oxygen and remdesivir as well as dexamethasone. I asked him if he knows the anticipated date of discharge and he does not Subjective Date/time seen: 07/21/21 07:27 Exam Const: General: alert Nutritional Appearance: overweight and edematous Orientation/consciousness: patient oriented x3 Resp: Auscultation: clear to auscultation bilaterally Cardio: Rhythm: regular rhythm GI: Inspection: distended Auscultation: normal bowel sounds : Scrotum: edematous ( quite edematous and mildly tender.) Neuro: General: patient oriented x3 Motor exam (neuro): No asterixis Extrem: Right lower extremity: edema Details: 4+ Left lower
[2021-07-21] MEDS: FUROSEMIDE 40 MG TABLET PO (08:46)
[2021-07-21] MEDS: CHOLECALCIFEROL 1,000 UNITS TABLET 2000 UNITS PO (08:46)
[2021-07-21] MEDS: SACCHAROMYCES BOULARDII 250 MG CAPSULE PO ×2 (08:46→17:19)
[2021-07-21] MEDS: PANTOPRAZOLE 40 MG TABLET PO (08:46)
[2021-07-21] MEDS: FINASTERIDE 5 MG TABLET PO (08:46)
[2021-07-21] MEDS: ESCITALOPRAM OXALATE 10 MG TABLET 20 MG PO (08:46)
[2021-07-21] MEDS: SPIRONOLACTONE 50 MG TABLET 100 MG PO ×2 (08:46→17:19)
[2021-07-21] MEDS: LORATADINE 10 MG TABLET PO (08:47)
[2021-07-21] MEDS: PROPRANOLOL HCL 60 MG CAPSULE CR PO (08:47)
[2021-07-21] MEDS: methylPHENIDATE HCL (*CRX) 5 MG TABLET PO ×2 (08:51→17:18)
[2021-07-21] MEDS: HYDROcodone/acetaminophen (*CRX) 5-325 MG TABLET 1 TAB PO ×2 (08:51→21:00)
[2021-07-21] MEDS: AZELASTINE HCL NASAL 0.1% 137 MCG/SPR 30 ML BTL 2 SPRAY NASAL ×2 (08:52→17:26)
[2021-07-21] MEDS: FLUTICASONE PROPIONATE 0.05% NA SPR 16 GM BTL (*BKC) 2 SPRAY NASAL (08:52)
--- NOTE | 2021-07-21 09:16 | PCNFU ---
Nutrition Follow-Up Complete: Pt current nutrition is heart healthy diet Last recorded weight is 102.6 kg, up 3.1kg from 07/20/21. Bowel Motility: +BM 07/19 reported Labs Reviewed: hgb 11.5, hct 36.4, Na 134, PT 17.8 Meds Noted: norco, albutein, cefepime, lexapro, proscar, lasix, claritin, ritalin, protonix, propranolol, florastor, aldactone, vancomycin, vitamin D Skin: right anterior lower leg ulcer - venous stasis, right hip incision Additional Notes: Current nutrition is a heart healthy diet with reported intake of 75% x3, and 80%. Pt appears to be tolerating current diet with adequate intake. Agree with diet orders at this time. No further nutritional interventions needed. Will monitor every 7 days.
--- NOTE | 2021-07-21 09:18 | PM.IMPN ---
Progress Note: A&P Assessment and Plan (1) Leukocytosis: Code(s): D72.829 - Elevated white blood cell count, unspecified Status: Acute Assessment and Plan: WBC elevated on admission the trend with 19.4-->12.4-->11 continues to rise again PO Vanc started for diarrhea in June 15, C diff negative Abd ct shows no changes Oral vanco started since he is having frequent BMs, and elevated WBC C diff however came back negative to Rocephin for UTI, then Flagyl and Cipro from to Jul.17 for Enteritis, then PO Vanc started Jul.16 to now for possible C.Diff C diff the came back negative on 07/13/2021 Increased cough recheck and monitor WBC count Continue on cefepime sputum culture may add vancomycin it WBC is more elevated (2) Abdominal pain: Code(s): R10.9 - Unspecified abdominal pain Status: Acute Assessment and Plan: States sore and tender Tender on physical exam, at paracentesis site Lactic acid 1.9 on 07/13/21 Paracentesis was performed, 07/09/21, KUB No acute abdominal abnormality identified 07/12/21 CT (07/09/21) shows small ascites (was tapped 07/09/21), enteritis, and cirrhosis Repeat CT did not show any changes Complaints of abdominal pain on the LLQ, at paracentesis site. Started some oral vanc since he is having frequent stools Trend WBC as they elevated at 19.4, improved to 12.4 with PO Vanc Continue to monitor (3) Diarrhea: Code(s): R19.7 - Diarrhea, unspecified Status: Acute Assessment and Plan: Abd ct ordered Oral vanc started Pain also present Could be collitis or c.diff from the antibiotics probiotics started Trend WBC as they elevated at 19.4-->12.4-->11 today with PO Vanc (4) Acute respiratory failure with hypoxia: Code(s): J96.01 - Acute respiratory failure with hypoxia Status: Acute Assessment and Plan: Resolved Flaring up at admission, resolved after last paracentesis and after most recent paracentesis respiratory distress was his primary reason for hospitalization and reactivated today likely due to the accumulation of ascitic fluid. respiratory status waxes and wanes with his level of ascites present abdominally. not struggling to breath, comfortable at rest, lying back in bed comfortably. No O2 requirement, no dyspnea, talking and showing no SOB. Blood gas noted to show respiratory alkalosis with hypoxia now on room air Trend SpO2 Manage fluid status CTA denies pulmonary embolism 07/21/2021 Oxygenation status continues to worsen suspect added pneumonia versus pulmonary edema pink frothy sputum noted will continue diuresis and get sputum culture chest x-ray reviewed continue on cefepime add vancomycin if continues to worsen WBC count. CBC pending this morning (5) Cirrhosis: Code(s): K74.60 - Unspecified cirrhosis of liver Status: Acute Assessment and Plan: Known problem imposed by ETOH abuse and could also be imposed by hep C history GI consulted, recommendations apprecaited Paracentesis PRN Spironolactone Fluid restriction added 1500ml per day LFTs WNL followed by hepatology at [facility] (6) Hyponatremia: Code(s): E87.1 - Hypo-osmolality and hyponatremia Status: Acute Assessment and Plan: IMPROVED. Na 130-->132 today, related to the ascites or diuretics or fluid overload monitoring now that Lasix restarted Urine studies ordered indicates that the patient is most likely dehydrated Trend labs Fluid restriction also added, on heart healthy diet and could change to Regular Diet if more Sodium needed. (7) Hypokalemia: Code(s): E87.6 - Hypokalemia Status: Acute Assessment and Plan: RESOLVED, but watch levels with med changes. K 3.8-->3.6 today on spironolactone Trend labs will need to watch K levels now that IV Lasix has been restarted on 07/18/21 (8) Enteritis: Code(s): K52.9 - Noninfective gastroenteritis and colitis,
--- NOTE | 2021-07-21 09:25 | ECG_ITS ---
Measurements Intervals [place] Rate: 151 P: HI: 0 QRS: -23 QRSD: 82 T: 27 QT: 288 QTc: 457 Interpretive Statements ATRIAL FIBRILLATION WITH RAPID VENTRICULAR RESPONSE LOW QRS VOLTAGE IN PRECORDIAL LEADS BORDERLINE ST-T WAVE ABNORMALITY- ANT/HIGH LAT LEADS BASELINE ARTIFACT- I, II, III, AVR, AVL, AVF, V1-V2, V4-V6 ABNORMAL ECG Electronically Signed On 07-21-2021 10:11:08 RESIDENT INSPECTOR by Dani Suarez D.O.
[2021-07-21] MEDS: METOPROLOL TARTRATE INJ 5 MG/5 ML VIAL IV PUSH (09:34)
[2021-07-21] MEDS: IPRATROPIUM BR 0.02% INH SOLN 0.5 MG/2.5 ML VIAL INHALATION ×3 (10:05→21:14)
[2021-07-21] MEDS: BACITRACIN OINTMENT 15 GM TUBE 1 APPLIC TOPICAL (10:05)
[2021-07-21] MEDS: LEVALBUTEROL NEB 1.25 MG/3 ML 0.63 MG INHALATION ×3 (10:05→21:14)
--- NOTE | 2021-07-21 10:07 | PCPTNOTE ---
Approached patient to perform re-assessment and to discuss pelvic floor exercises. 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 States that since he has been in the hospital it has been more incontinence and based on his description it is potentially an urge incontinence in that he is not able to hold once he feels the urge to defecate. I would typically recommend pelvic floor education and exercise training for an outpatient setting for greater efficacy and also to ensure that all infections and other barriers to success are clear. While I was in the room, his heart rate was at 150. RN aware and I deferred therapy assessment/treatment at this time due to resting heart rate. Will attempt again when resting heart rate comes down. RN aware that therapy will return later.
[2021-07-21] MEDS: methylPREDNISolone SOD SUCC 125 MG VIAL IV PUSH (10:08)
[2021-07-21] MEDS: dilTIAZem 100 MG/100 ML 100 MG/100 ML BAG IV CONT (10:08)
[2021-07-21 10:11] LABS: Alveolar/Arterial O2 Gradient 253.4 mmHg; Base Excess ABG 1.5 mEq/l (+/-2.0); Fractional Inspired Oxygen 48 %; HCO3 ABG 24.5 mEq/l (22.0-26.0); Oxygen Content ABG 14.6 %vol (16.0-22.0); Oxygen Saturation ABG 89.4 % (95.0-100.0); PCO2 ABG 33.1 mmHg (35.0-45.0); PO2 ABG 51.4 mmHg (80.0-100.0); PO2 FiO2 Ratio Arterial Blood 1.07 %; pH ABG 7.487 (7.350-7.450)
[2021-07-21 10:13] LABS: Oxyhemoglobin 86.7 % THb (90.0-100.0)
[2021-07-21 10:14] LABS: Device HIGH FLOW NASAL CANN; Modified Allen's Test Pass; Site Drawn LEFT RADIAL
[2021-07-21 11:32] LABS: Ammonia < 9 umol/L (9-30)
[2021-07-21 11:33] LABS: Alanine Aminotransferase 14 U/L (4-50); Albumin Level 4.4 g/dL (3.5-5.1); Alkaline Phosphatase 48 U/L (38-126); Anion Gap 7 mmol/L (8-16); Aspartate Amino Transferase 28 U/L (17-59); Bilirubin,Total 2.1 mg/dL (0.2-1.3); Blood Urea Nitrogen 17 mg/dL (9-20); Calcium 8.8 mg/dL (8.4-10.2); Carbon Dioxide 28 mmol/L (22-30); Chloride 100 mmol/L (98-107); Estimated CRCL calculation 99 ml/min; Estimated Glomerular Filt Rate > 60; Glucose 144 mg/dL (65-110); Lipase 85 U/L (23-300); Magnesium 2.2 mg/dL (1.6-2.3); Potassium 3.6 mmol/L (3.4-5.0); Sodium 135 mmol/L (137-145)
[2021-07-21 11:34] LABS: Lactic Acid Reflex 1.3 mmol/L (0.7-2.1)
[2021-07-21 11:45] LABS: NT Pro B Type Natriuretic Pept 6280 pg/mL (5-100)
[2021-07-21 12:07] LABS: Basophils Percent Auto 0.2 % (0.2-1.2); Eosinophils Percent Auto 0.4 % (0-4.4); Hematocrit 35.3 % (42.0-52.0); Hemoglobin 11.2 g/dL (14.0-18.0); Immature Granulocyte Absolute 0.06 K/mm3 (0.00-0.031); Immature Granulocyte Percent A 0.6 % (0-0.5); Lymphocytes Absolute Auto 0.38 K/mm3 (0.9-3.2); Lymphocytes Percent Auto 3.6 % (18.3-44.2); Mean Corpuscular HGB Conc 31.7 g/dl (32-36); Mean Corpuscular Volume 97.8 fl (80-100); Mean Platelet Volume 11.8 fl (7.4-10.4); Monocytes Absolute Auto 0.9 K/mm3 (0.1-0.6); Monocytes Percent Auto 8.5 % (2.6-8.5); Neutrophils Absolute Auto 9.2 K/mm3 (1.3-6.7); Neutrophils Percent Auto 86.7 % (45.5-73.1); Platelet Count Result 83 k/mm3 (150-375); Red Blood Count 3.61 M/mm3 (4.6-6.20); Red Cell Distribution Width 16.5 % (11.5-14.5); White Blood Count 10.7 K/mm3 (4.5-10.0)
--- NOTE | 2021-07-21 12:20 | WPDGIPROGNO ---
Progress Note: A&P Assessment and Plan (1) Cirrhosis: Code(s): K74.60 - Unspecified cirrhosis of liver Status: Acute Assessment and Plan: etiology is hepatitis C and alcohol abuse. He has been followed by hepatology at [facility] but over due for his visit I contacted someone at the [facility] who told me that he is seen by Dr. Jyotsna Frank (2) Ascites: Code(s): R18.8 - Other ascites Status: Acute Assessment and Plan: 07/15 nearly 3 L were drawn off today. He has been started on spironolactone. I explained to the patient a fluid restriction is very important. and that he will need to restrict sodium as well. He does not believe that he has been told that in the past. I explained him that he cannot have potato chips pretzels or any other snacks at a are high in sodium. Obviously he is been receiving IV fluids since admission which contributes to his ascites . 07/16 I spoke to him again about the need to restrict fluids and in particular sodium. He seemed still surprised about this knowledge. I am sure that he had been told this before or should have been told that. I told that he will need to follow up with a doctor at the [facility]. I am trying to find out the last name of the physician. He believes that she is the director of Gastroenterology at the [place]--Dr. Domingo or Jyotsna . 07/18 Although his total weight is down. He is still quite edematous in the right lower extremity and now in the scrotum. He will need some IV albumin to help mobilize some of this 3rd space fluid and we should start him back on Lasix now that he has been started on a maintenance dose of Aldactone 07/21 today unfortunately his weight is 102 kg. He states that he was short of breath yesterday and could not eat much in the evening. Today he is lying flat in bed and talking without significant evidence of dyspnea, able to complete sentences. (3) Enteritis: Code(s): K52.9 - Noninfective gastroenteritis and colitis, unspecified Status: Acute Assessment and Plan: He has no symptoms of enteritis. This was a finding on CT scan was as a noted some small bowel mucosal thickening (4) Hypokalemia: Code(s): E87.6 - Hypokalemia Status: Acute Assessment and Plan: 07/15/21 potassium was 2.7 today. He has been given oral and IV potassium and also started on spironolactone 07/16/21 he did receive potassium supplement has been started on Aldactone which should keep his potassium from dropping further. It would probably be prudent to start him back on a low-dose of Lasix, I will begin 40 mg daily. Will consider increasing this to 80 mg per day (5) Hepatitis C: Code(s): B19.20 - Unspecified viral hepatitis C without hepatic coma Status: Acute Assessment and Plan: this was treated at least 15 years ago and is inactive (6) Acute respiratory failure with hypoxia: Code(s): J96.01 - Acute respiratory failure with hypoxia Status: Acute Assessment and Plan: respiratory distress was his primary reason for hospitalization and reactivated today likely due to the accumulation of ascitic fluid. He still feels that he is not breathing like he should an must sit up to breathe (7) COVID-19: Code(s): U07.1 - COVID-19 Status: Acute Assessment and Plan: this seems to be inactive at this time. He was treated with supplemental oxygen and remdesivir as well as dexamethasone. I asked him if he knows the anticipated date of discharge and he does not Subjective Date/time seen: 07/21/21 12:20 he states that last night he could not eat supper because he was too short of breath even sitting up. Now he is lying in bed and does not seem short of breath. He is able to speak in complete sentences. He denies abdominal pain or any other new symptoms Review of Systems Review of Systems: All systems reviewed & are unremark
[2021-07-21] MEDS: methylPREDNISolone SOD SUCC 125 MG VIAL 60 MG IV PUSH ×2 (12:46→17:19)
[2021-07-21] MEDS: ACETAMINOPHEN 500 MG TABLET 1000 MG PO (12:49)
[2021-07-21] MEDS: traMADol HCL (*CRX) 50 MG TABLET PO (12:50)
--- NOTE | 2021-07-21 13:50 | PCOTNOTE ---
Attempted OT re-evaluation, per RN hold for today due to patient heart rate. Will follow and attempt at later time.
[2021-07-21] MEDS: DOCUSATE SODIUM 100 MG CAPSULE PO (20:59)
[2021-07-21] MEDS: MELATONIN 3 MG TABLET PO (20:59)
[2021-07-22] VITALS (25 sets, daily range): BP systolic 101–141; BP diastolic 59–81; PULSE 63–131; RESP 17–26; TEMP 36.3–37; O2SAT 85–98
[2021-07-22] MEDS: VANCOMYCIN ORAL 125 MG/2.5 ML SYRUP PO ×4 (00:07→18:03)
[2021-07-22] MEDS: methylPREDNISolone SOD SUCC 125 MG VIAL 60 MG IV PUSH ×4 (00:07→18:00)
[2021-07-22] MEDS: ALBUMIN HUMAN 25% 25 GM/100 ML 100 ML IVPB ×4 (02:27→20:43)
[2021-07-22] MEDS: dilTIAZem 100 MG/100 ML 100 MG/100 ML BAG IV CONT (02:27)
[2021-07-22] MEDS: IPRATROPIUM BR 0.02% INH SOLN 0.5 MG/2.5 ML VIAL INHALATION (03:10)
[2021-07-22] MEDS: LEVALBUTEROL NEB 1.25 MG/3 ML 0.63 MG INHALATION (03:10)
[2021-07-22] MEDS: HYDROcodone/acetaminophen (*CRX) 5-325 MG TABLET 1 TAB PO ×2 (06:18→18:03)
[2021-07-22] MEDS: FUROSEMIDE INJ 40 MG/4 ML VIAL IV PUSH ×2 (09:11→18:00)
[2021-07-22] MEDS: CHOLECALCIFEROL 1,000 UNITS TABLET 2000 UNITS PO (09:13)
[2021-07-22] MEDS: ESCITALOPRAM OXALATE 10 MG TABLET 20 MG PO (09:13)
[2021-07-22] MEDS: FINASTERIDE 5 MG TABLET PO (09:14)
[2021-07-22] MEDS: LORATADINE 10 MG TABLET PO (09:15)
[2021-07-22] MEDS: methylPHENIDATE HCL (*CRX) 5 MG TABLET PO ×2 (09:16→17:59)
[2021-07-22] MEDS: PANTOPRAZOLE 40 MG TABLET PO (09:16)
[2021-07-22] MEDS: PROPRANOLOL HCL 60 MG CAPSULE CR PO (09:16)
[2021-07-22] MEDS: SACCHAROMYCES BOULARDII 250 MG CAPSULE PO ×2 (09:17→17:59)
[2021-07-22] MEDS: SPIRONOLACTONE 50 MG TABLET 100 MG PO ×2 (09:18→18:00)
[2021-07-22] MEDS: FLUTICASONE PROPIONATE 0.05% NA SPR 16 GM BTL (*BKC) 2 SPRAY NASAL (09:19)
--- NOTE | 2021-07-22 09:19 | PCPTNOTE ---
Attempted PT re-eval, Per RN to try back this afternoon due to patient condition.
[2021-07-22] MEDS: ENOXAPARIN 40 MG/0.4 ML SYRINGE SUB-Q (09:20)
[2021-07-22] MEDS: AZELASTINE HCL NASAL 0.1% 137 MCG/SPR 30 ML BTL 2 SPRAY NASAL ×2 (09:21→18:02)
--- NOTE | 2021-07-22 09:31 | PM.IMPN ---
Progress Note: A&P Assessment and Plan (1) Leukocytosis: Code(s): D72.829 - Elevated white blood cell count, unspecified Status: Acute (2) Atrial fibrillation with RVR: Code(s): I48.91 - Unspecified atrial fibrillation Status: Acute (3) COVID-19: Code(s): U07.1 - COVID-19 Status: Acute (4) Pneumonia due to COVID-19 virus: Code(s): U07.1 - COVID-19; J12.82 - Pneumonia due to coronavirus disease 2019 Status: Acute (5) Hepatitis C: Code(s): B19.20 - Unspecified viral hepatitis C without hepatic coma Status: Acute (6) Elevated d-dimer: Code(s): R79.89 - Other specified abnormal findings of blood chemistry Status: Acute (7) Sepsis: Code(s): A41.9 - Sepsis, unspecified organism Status: Acute (8) Ascites: Code(s): R18.8 - Other ascites Status: Acute (9) Diastolic CHF: Code(s): I50.30 - Unspecified diastolic (congestive) heart failure Status: Acute (10) Urinary retention: Code(s): R33.9 - Retention of urine, unspecified Status: Acute (11) Fracture of right hip requiring operative repair: Code(s): S72.001A - Fracture of unspecified part of neck of right femur, initial encounter for closed fracture Status: Acute (12) Thrombocytopenia: Code(s): D69.6 - Thrombocytopenia, unspecified Status: Acute (13) Acute UTI: Code(s): N39.0 - Urinary tract infection, site not specified Status: Acute (14) Enteritis: Code(s): K52.9 - Noninfective gastroenteritis and colitis, unspecified Status: Acute (15) Hypokalemia: Code(s): E87.6 - Hypokalemia Status: Acute (16) Hyponatremia: Code(s): E87.1 - Hypo-osmolality and hyponatremia Status: Acute (17) Cirrhosis: Code(s): K74.60 - Unspecified cirrhosis of liver Status: Acute (18) Diarrhea: Code(s): R19.7 - Diarrhea, unspecified Status: Acute (19) Abdominal pain: Code(s): R10.9 - Unspecified abdominal pain Status: Acute (20) Acute respiratory failure with hypoxia: Code(s): J96.01 - Acute respiratory failure with hypoxia Status: Acute Additional Plan 07/22/21 pt on cardizem gtt converts back into NSR taken off gtt and then back in Afib Propanolol dosing reviewed w GI, not standard portal hypertension dosing, will discontinue c/s Cardiology for assistance w afib and volume status diarrhea has resolved since yesterday Anticipate discharge soon Subjective Date/time seen: 07/22/21 09:31 doing ok no new complaints today on 15L o2 still w LE edema No diarrhea since yesterday Exam Narrative: GENERAL: The patient is well developed,no respiratory distress distress HEENT: Nonicteric sclerae, EOMI. Moist mucous membranes. Conjunctivae clear. CHEST: Chest wall is nontender. HEART: Tachycardic irregular rhythm LUNGS: Coarse breath sound wheezes diffusely ABDOMEN: Soft, positive bowel sounds, distended, no organomegaly. SKIN: No rash, no excessive bruising, petechiae, or purpura. NEUROLOGIC: Cranial nerves II-XII intact, alert and oriented x 3, no gross motor deficits EXTREMITIES: Pitting edema lower extremity bilaterally left BKA status, no cyanosis or clubbing Right leg wrapped in dressing prox to ankle Objective Data Vital Signs Vital Signs: Vital Signs - 24 hr 07/21/21 09:34 07/21/21 10:00 07/21/21 10:08 Temperature Pulse Rate 160 H 147 H 150 H Respiratory Rate Blood Pressure Pulse Oximetry 07/21/21 10:10 07/21/21 10:17 07/21/21 10:19 Temperature Pulse Rate 141 H 148 H Respiratory Rate Blood Pressure Pulse Oximetry 92 07/21/21 12:00 07/21/21 14:00 07/21/21 14:23 Temperature 98.1 F Pulse Rate 120 H 104 H 94 Respiratory Rate 20 94 H Blood Pressure 130/75 Pulse Oximetry 100 96 07/21/21 14:24 07/21/21 14:43 07/21/21 15:00 Temperature Pulse Rate 107 H Respiratory Rate
--- NOTE | 2021-07-22 09:59 | PCOTNOTE ---
Attempted OT re-eval, Per RN to try back this afternoon due to patient condition.
[2021-07-22] MEDS: BACITRACIN OINTMENT 15 GM TUBE 1 APPLIC TOPICAL (10:30)
--- NOTE | 2021-07-22 12:14 | ECG_ITS ---
Measurements Intervals [place] Rate: 69 P: 11 OK: 161 QRS: -10 QRSD: 93 T: 29 QT: 405 QTc: 436 Interpretive Statements SINUS RHYTHM INCOMPLETE RIGHT BUNDLE BRANCH BLOCK LOW QRS VOLTAGE IN PRECORDIAL LEADS BASELINE ARTIFACT- I, II, III, AVR, AVL, AVF, V1-V6 BORDERLINE ECG Electronically Signed On 07-22-2021 13:47:18 SOAKERS SUPERVISOR by Dani Suarez D.O.
[2021-07-22] MEDS: LEVALBUTEROL HFA (*SP) 15 GM INHALER 2 PUFF INHALATION ×2 (13:25→20:27)
[2021-07-22] MEDS: LIDOCAINE HCL 1% PF INJ 5 ML VIAL INFILTRATE (14:55)
--- NOTE | 2021-07-22 14:55 | PCPTNOTE ---
Addendum entered by Ashley Harvey, PT 07/22/21 15:07: Hold orders. Please re-order when medically appropriate. Original Note: Attempted PT re-eval, per SARAH Frederick, patient needs to be placed on hold until medically stable to participate with therapy. Patient on 15L of O2 at this time.
--- NOTE | 2021-07-22 15:04 | PM.PNCARD ---
Progress Note: A&P Assessment and Plan (1) Intermittent atrial fibrillation: Code(s): I48.0 - Paroxysmal atrial fibrillation Status: Acute Assessment and Plan: Will DC his diltiazem drip and transition him to metoprolol 25 mg p.o. b.i.d.. Patient is having some hemoptysis and no full anticoagulation will be provided at this point because of the hemoptysis. (2) Pneumonia due to COVID-19 virus: Code(s): U07.1 - COVID-19; J12.82 - Pneumonia due to coronavirus disease 2019 Status: Acute Assessment and Plan: Per hospitalist (3) Volume overload: Code(s): E87.70 - Fluid overload, unspecified Status: Acute Assessment and Plan: Agree with IV diuretics. (4) Cirrhosis: Code(s): K74.60 - Unspecified cirrhosis of liver Status: Acute Subjective Date/time seen: 07/22/21 15:04 Interval history: 76-year-old admitted for COVID. Was seen in consultation by Dr. Parham on July 07. This is for elevated troponins. We are now reconsulted because of atrial fibrillation Date of service 07/22/2021: Patient has had recurrent episodes of atrial fibrillation but with controlled ventricular response. Now in sinus rhythm on diltiazem. Had increased work of breathing yesterday and has been put on diuretics. Review of Systems Constitutional: Constitutional: Reports weakness Eyes: Eyes: Reports no additional eye complaints ENT: Reports Normal hearing present Cardiovascular: Cardiovascular: Denies chest pain and Reports dyspnea Respiratory: Respiratory: Reports as per HPI, Reports cough, Reports hemoptysis and Reports dyspnea Gastrointestinal: Gastrointestinal: Denies abdominal pain Genitourinary: Genitourinary: Denies dysuria Musculoskeletal: Musculoskeletal: Reports no additional musculoskeletal complaints Integumentary/Breasts: Skin/Breast: Reports system reviewed and no additional complaints, except as docu Neurologic: Denies headache(s) Psychiatric: Psychiatric: Denies anxiety Endocrine: Endocrine: Denies excessive sweating Hematologic/Lymphatic: Hematologic/Lymphatic: Reports easy bleeding Allergic/Immunologic: Allergic/Immunologic: Denies GI upset with certain foods Exam Narrative: appears to be in distress Const: General: in distress and uncomfortable HENMT: Mouth: Yes moist mucous membranes Eyes: Sclera: sclerae normal Neck: Neck: supple and no JVD Resp: Auscultation: diminished lung sounds Other: Breath sounds are diminished bilaterally a few rhonchi are audible no rales no wheezing Cardio: Rate: regular rate Rhythm: regular rhythm Other: No significant murmur or gallop GI: Auscultation: normal bowel sounds Skin: General skin exam: normal color Neuro: Cranial nerves: Yes Equal, round and reactive pupils present Cognition (Neuro): normal cognition Extrem: Other: Mild chronic appearing edema of the 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 Vital Signs: Vital Signs - 24 hr 07/21/21 16:00 07/21/21 17:24 07/21/21 18:00 Temperature Pulse Rate 85 86 88 Respiratory Rate Blood Pressure Pulse Oximetry 94 07/21/21 20:00 07/21/21 20:55 07/21/21 21:14 Temperature 36.4 C Pulse Rate 79 88 104 H Respiratory Rate 20 20 Blood Pressure 138/81 Pulse Oximetry 92 92 07/21/21 21:16 07/21/21 21:17 07/21/21 21:23 Temperature Pulse Rate 106 H Respiratory Rate 24 H Blood Pressure Pulse Oximetry 94 94 07/21/21 22:00 07/22/21 00:00 07/22/21 02:00 Temperature 36.4 C L Pulse Rate 84 83 86 Respiratory Rate 20 Blood Pressure 141/81 H Pulse Oximetry 92 07/22/21 02:27 07/22/21 03:10 07/22/21 03:20 Temperature Pulse Rate 84 104 H 104 H Respiratory Rate Blood Pressure Pulse Oximetry 07/22/21 03:40 07/22/21 04:00 07/22/21 06:00 Temperature 36.3 C L Pulse Rate 79 82 78 Respiratory Rate 2
[2021-07-22 15:17] LABS: Basophils Percent Auto 0.1 % (0.2-1.2); Hematocrit 33.6 % (42.0-52.0); Hemoglobin 10.6 g/dL (14.0-18.0); Immature Granulocyte Percent A 0.6 % (0-0.5); Immature Platelet Fraction Pct 9.9 % (0.9-11.2); Lymphocytes Absolute Auto 0.47 K/mm3 (0.9-3.2); Lymphocytes Percent Auto 2.8 % (18.3-44.2); Mean Corpuscular HGB Conc 31.5 g/dl (32-36); Mean Corpuscular Volume 98.2 fl (80-100); Mean Platelet Volume 12.2 fl (7.4-10.4); Monocytes Absolute Auto 0.9 K/mm3 (0.1-0.6); Monocytes Percent Auto 5.1 % (2.6-8.5); Neutrophils Absolute Auto 15.3 K/mm3 (1.3-6.7); Neutrophils Percent Auto 91.4 % (45.5-73.1); Platelet Count Result 137 k/mm3 (150-375); Red Blood Count 3.42 M/mm3 (4.6-6.20); White Blood Count 16.7 K/mm3 (4.5-10.0)
[2021-07-22 15:30] LABS: INR 1.6; Prothrombin Time 18.4 Seconds (11.1-14.7)
[2021-07-22 19:33] LABS: Alanine Aminotransferase 15 U/L (4-50); Albumin Level 4.4 g/dL (3.5-5.1); Alkaline Phosphatase 53 U/L (38-126); Anion Gap 13 mmol/L (8-16); Aspartate Amino Transferase 30 U/L (17-59); Bilirubin,Total 1.3 mg/dL (0.2-1.3); Blood Urea Nitrogen 31 mg/dL (9-20); Calcium 9.1 mg/dL (8.4-10.2); Carbon Dioxide 24 mmol/L (22-30); Chloride 99 mmol/L (98-107); Creatine Kinase 55 U/L (55-170); Estimated CRCL calculation 71 ml/min; Estimated Glomerular Filt Rate > 60; Glucose 182 mg/dL (65-110); Magnesium 2.3 mg/dL (1.6-2.3); Phosphorus 3.1 mg/dL (2.5-4.5); Potassium 3.9 mmol/L (3.4-5.0); Sodium 136 mmol/L (137-145)
--- NOTE | 2021-07-22 20:31 | PCRCNOTE ---
Pt was switched from large full face mask to C under the nose cushion mask due to irritation on bridge of nose.
[2021-07-22] MEDS: MELATONIN 3 MG TABLET PO (20:44)
[2021-07-22] MEDS: METOPROLOL TARTRATE 25 MG TABLET PO (20:44)
[2021-07-22] MEDS: traMADol HCL (*CRX) 50 MG TABLET PO (21:28)
[2021-07-23] VITALS (23 sets, daily range): BP systolic 117–156; BP diastolic 59–113; PULSE 64–79; RESP 15–28; TEMP 36.2–36.8; O2SAT 91–100
--- NOTE | 2021-07-23 | ECHO_ITS ---
Patient Info Name: Alex Fish Age: 76 years : 1945 Gender: Male Ht: 72 in Wt: 226 lbs BSA: 2.31 m2 HR: 66 bpm BP: 119 / 62 mmHg Heart Rhythm: Sinus Rhythm Technical Quality: Fair Exam Date: 07/23/2021 2:41 PM Exam Location: [facility] Patient Status: Inpatient Admit Date: 07/07/2021 Staff Ordering Physician: Otto Espinal MD Customer Care Assistant: Tiarra Hsu RDCS Attending Provider: Beatris Roach MD Referring Physician: Kylie PORTER; Exam Type: CA echo dop color flow w con Study Info Indications - volume overload, atrial fibrillaton Complete two-dimensional, color flow and Doppler transthoracic echocardiogram is performed. Summary 1. Complete two-dimensional, color flow and Doppler transthoracic echocardiogram is performed. 2. Left ventricular chamber dimension is normal. 3. Left ventricular systolic function is hyperdynamic, estimated at >70%. 4. There is no increased left ventricular wall thickness. 5. The left ventricular diastolic function is grade II diastolic dysfunction. 6. Right ventricular chamber dimension is mildly enlarged. 7. Left atrial chamber dimension is mildly enlarged. 8. Right atrial chamber dimension is mildly enlarged. 9. There is mild tricuspid valve regurgitation. 10. Moderate pulmonary hypertension, estimated pulmonary arterial systolic pressure is 50 mmHg. Left Ventricle Left ventricular chamber dimension is normal. Left ventricular systolic function is hyperdynamic, estimated at >70%. There is no increased left ventricular wall thickness. The left ventricular diastolic function is grade II diastolic dysfunction. Right Ventricle Right ventricular chamber dimension is mildly enlarged. Right ventricular systolic function is normal. Left Atria Left atrial chamber dimension is mildly enlarged. Right Atria Right atrial chamber dimension is mildly enlarged. Atrial Septum Intact interatrial septum visualized by color flow imaging. Aortic Valve The aortic valve is trileaflet. There is no aortic valve stenosis. There is trace aortic valve regurgitation. There is mild aortic valve calcification. Pulmonic Valve The pulmonic valve is normal. There is no pulmonic valve stenosis. There is trace pulmonic regurgitation. Mitral Valve The mitral valve has calcified annulus. There is no mitral valve stenosis. There is trace mitral valve regurgitation. Tricuspid Valve The tricuspid valve leaflets are normal. There is no significant tricuspid valve stenosis. There is mild tricuspid valve regurgitation. Moderate pulmonary hypertension, estimated pulmonary arterial systolic pressure is 50 mmHg. Pericardium/Pleural The pericardium appears normal. There is no pericardial effusion. Inferior Vena Cava Normal inferior vena cava with <50% collapse upon inspiration consistent with elevated right atrial pressure, 10 mmHg. Aorta The aortic root size at the sinus of Valsalva is normal. Left Ventricular Outflow Tract Name Value Normal LVOT 2D LVOT Diameter 1.99 cm LVOT Doppler LVOT Peak Gradient 5 mmHg
[2021-07-23] MEDS: HYDROcodone/acetaminophen (*CRX) 5-325 MG TABLET 1 TAB PO ×3 (00:43→21:48)
[2021-07-23] MEDS: methylPREDNISolone SOD SUCC 125 MG VIAL 60 MG IV PUSH ×2 (00:43→05:35)
[2021-07-23] MEDS: VANCOMYCIN ORAL 125 MG/2.5 ML SYRUP PO ×4 (00:43→17:45)
[2021-07-23] MEDS: ALBUMIN HUMAN 25% 25 GM/100 ML 100 ML IVPB ×4 (02:22→20:28)
[2021-07-23] MEDS: LEVALBUTEROL HFA (*SP) 15 GM INHALER 2 PUFF INHALATION ×2 (02:59→08:58)
[2021-07-23 05:55] LABS: Hematocrit 28.8 % (42.0-52.0); Hemoglobin 9.1 g/dL (14.0-18.0); Immature Granulocyte Absolute 0.03 K/mm3 (0.00-0.031); Immature Granulocyte Percent A 0.5 % (0-0.5); Immature Platelet Fraction Pct 9.3 % (0.9-11.2); Lymphocytes Absolute Auto 0.31 K/mm3 (0.9-3.2); Lymphocytes Percent Auto 5.3 % (18.3-44.2); Mean Corpuscular HGB Conc 31.6 g/dl (32-36); Mean Corpuscular Hemoglobin 31.1 pg (26-34); Mean Corpuscular Volume 98.3 fl (80-100); Mean Platelet Volume 11.5 fl (7.4-10.4); Monocytes Absolute Auto 0.3 K/mm3 (0.1-0.6); Neutrophils Absolute Auto 5.2 K/mm3 (1.3-6.7); Neutrophils Percent Auto 89.2 % (45.5-73.1); Platelet Count Result 77 k/mm3 (150-375); Red Blood Count 2.93 M/mm3 (4.6-6.20); White Blood Count 5.8 K/mm3 (4.5-10.0)
[2021-07-23 06:26] LABS: Alanine Aminotransferase 13 U/L (4-50); Albumin Level 4.6 g/dL (3.5-5.1); Alkaline Phosphatase 40 U/L (38-126); Anion Gap 10 mmol/L (8-16); Aspartate Amino Transferase 24 U/L (17-59); Bilirubin,Total 1.3 mg/dL (0.2-1.3); Blood Urea Nitrogen 42 mg/dL (9-20); Calcium 9.2 mg/dL (8.4-10.2); Carbon Dioxide 28 mmol/L (22-30); Chloride 101 mmol/L (98-107); Estimated CRCL calculation 65 ml/min; Estimated Glomerular Filt Rate > 60; Glucose 155 mg/dL (65-110); Magnesium 2.5 mg/dL (1.6-2.3); Potassium 3.7 mmol/L (3.4-5.0); Sodium 139 mmol/L (137-145)
[2021-07-23] MEDS: SPIRONOLACTONE 50 MG TABLET 100 MG PO ×2 (09:47→17:46)
[2021-07-23] MEDS: METOPROLOL TARTRATE 25 MG TABLET PO ×2 (09:48→20:44)
[2021-07-23] MEDS: PANTOPRAZOLE 40 MG TABLET PO (09:48)
[2021-07-23] MEDS: PSYLLIUM POWDER PACKET 1 PACKET PO (09:48)
[2021-07-23] MEDS: SACCHAROMYCES BOULARDII 250 MG CAPSULE PO ×2 (09:48→17:45)
[2021-07-23] MEDS: LORATADINE 10 MG TABLET PO (09:49)
[2021-07-23] MEDS: FINASTERIDE 5 MG TABLET PO (09:49)
[2021-07-23] MEDS: FLUTICASONE PROPIONATE 0.05% NA SPR 16 GM BTL (*BKC) 2 SPRAY NASAL (09:49)
[2021-07-23] MEDS: CHOLECALCIFEROL 1,000 UNITS TABLET 2000 UNITS PO (09:49)
[2021-07-23] MEDS: FUROSEMIDE INJ 40 MG/4 ML VIAL IV PUSH (09:49)
[2021-07-23] MEDS: ESCITALOPRAM OXALATE 10 MG TABLET 20 MG PO (09:49)
[2021-07-23] MEDS: DOCUSATE SODIUM 100 MG CAPSULE PO ×2 (09:49→20:28)
[2021-07-23] MEDS: AZELASTINE HCL NASAL 0.1% 137 MCG/SPR 30 ML BTL 2 SPRAY NASAL ×2 (09:50→17:45)
[2021-07-23] MEDS: methylPHENIDATE HCL (*CRX) 5 MG TABLET PO ×2 (09:58→17:46)
--- NOTE | 2021-07-23 10:11 | PM.PNCARD ---
Progress Note: A&P Assessment and Plan (1) Intermittent atrial fibrillation: Code(s): I48.0 - Paroxysmal atrial fibrillation Status: Acute Assessment and Plan: Continue metoprolol.. Patient is having some hemoptysis and no full anticoagulation will be provided at this point because of the hemoptysis. (2) Pneumonia due to COVID-19 virus: Code(s): U07.1 - COVID-19; J12.82 - Pneumonia due to coronavirus disease 2018 Status: Acute Assessment and Plan: Per hospitalist (3) Volume overload: Code(s): E87.70 - Fluid overload, unspecified Status: Acute Assessment and Plan: Continue IV diuretics. Will replace potassium 40 mEq p.o. x1. Repeat 2D echocardiogram with Doppler to ensure there has been no changes given change in clinical status (4) Cirrhosis: Code(s): K74.60 - Unspecified cirrhosis of liver Status: Acute (5) Hemoptysis: Code(s): R04.2 - Hemoptysis Status: Acute Assessment and Plan: Consult Dr. Camargo for diego hemoptysis Subjective Date/time seen: 07/23/21 10:11 Interval history: 76-year-old admitted for COVID. Was seen in consultation by Dr. Parham on July 07. This is for elevated troponins. We are now reconsulted because of atrial fibrillation Date of service 07/22/2021: Patient has had recurrent episodes of atrial fibrillation but with controlled ventricular response. Now in sinus rhythm on diltiazem. Had increased work of breathing yesterday and has been put on diuretics. Date of service 07/23/2021: He is having [place] hemoptysis. Remains in sinus rhythm. No chest pain. Still short of breath Review of Systems Constitutional: Constitutional: Denies excessive sweating, Denies headache(s) and Reports weakness Eyes: Eyes: Reports no additional eye complaints ENT: Reports Normal hearing present and Denies headache(s) Cardiovascular: Cardiovascular: Denies chest pain and Reports dyspnea Respiratory: Respiratory: Reports as per HPI, Reports cough, Reports hemoptysis and Reports dyspnea Gastrointestinal: Gastrointestinal: Denies abdominal pain Genitourinary: Genitourinary: Denies dysuria Musculoskeletal: Musculoskeletal: Reports no additional musculoskeletal complaints Integumentary/Breasts: Skin/Breast: Reports system reviewed and no additional complaints, except as docu Neurologic: Reports Normal hearing present, Denies headache(s) and Reports weakness Psychiatric: Psychiatric: Denies anxiety Endocrine: Endocrine: Denies excessive sweating Hematologic/Lymphatic: Hematologic/Lymphatic: Reports easy bleeding Allergic/Immunologic: Allergic/Immunologic: Denies GI upset with certain foods Exam Narrative: appears to be in distress Const: General: in distress and uncomfortable HENMT: Mouth: Yes moist mucous membranes Eyes: Sclera: sclerae normal Pupils: Equal, round and reactive pupils present Neck: Neck: supple and no JVD Resp: Auscultation: diminished lung sounds Other: Breath sounds are diminished bilaterally a few rhonchi are audible no rales no wheezing Cardio: Rate: regular rate Rhythm: regular rhythm Other: No significant murmur or gallop GI: Auscultation: normal bowel sounds Skin: General skin exam: normal color Neuro: Cranial nerves: Yes Equal, round and reactive pupils present and Yes Normal hearing present Cognition (Neuro): normal cognition Extrem: Other: Mild chronic appearing edema of the 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
--- NOTE | 2021-07-23 11:08 | PM.IMPN ---
Progress Note: A&P Assessment and Plan (1) Leukocytosis: Code(s): D72.829 - Elevated white blood cell count, unspecified Status: Acute (2) Atrial fibrillation with RVR: Code(s): I48.91 - Unspecified atrial fibrillation Status: Acute (3) COVID-19: Code(s): U07.1 - COVID-19 Status: Acute (4) Pneumonia due to COVID-19 virus: Code(s): U07.1 - COVID-19; J12.82 - Pneumonia due to coronavirus disease 2019 Status: Acute (5) Hepatitis C: Code(s): B19.20 - Unspecified viral hepatitis C without hepatic coma Status: Acute (6) Elevated d-dimer: Code(s): R79.89 - Other specified abnormal findings of blood chemistry Status: Acute (7) Sepsis: Code(s): A41.9 - Sepsis, unspecified organism Status: Acute (8) Ascites: Code(s): R18.8 - Other ascites Status: Acute (9) Diastolic CHF: Code(s): I50.30 - Unspecified diastolic (congestive) heart failure Status: Acute (10) Urinary retention: Code(s): R33.9 - Retention of urine, unspecified Status: Acute (11) Fracture of right hip requiring operative repair: Code(s): S72.001A - Fracture of unspecified part of neck of right femur, initial encounter for closed fracture Status: Acute (12) Thrombocytopenia: Code(s): D69.6 - Thrombocytopenia, unspecified Status: Acute (13) Acute UTI: Code(s): N39.0 - Urinary tract infection, site not specified Status: Acute (14) Enteritis: Code(s): K52.9 - Noninfective gastroenteritis and colitis, unspecified Status: Acute (15) Hypokalemia: Code(s): E87.6 - Hypokalemia Status: Acute (16) Hyponatremia: Code(s): E87.1 - Hypo-osmolality and hyponatremia Status: Acute (17) Cirrhosis: Code(s): K74.60 - Unspecified cirrhosis of liver Status: Acute (18) Diarrhea: Code(s): R19.7 - Diarrhea, unspecified Status: Acute (19) Abdominal pain: Code(s): R10.9 - Unspecified abdominal pain Status: Acute (20) Acute respiratory failure with hypoxia: Code(s): J96.01 - Acute respiratory failure with hypoxia Status: Acute (21) Hemoptysis: Code(s): R04.2 - Hemoptysis Status: Acute (22) Volume overload: Code(s): E87.70 - Fluid overload, unspecified Status: Acute (23) Intermittent atrial fibrillation: Code(s): I48.0 - Paroxysmal atrial fibrillation Status: Acute Additional Plan 07/22/21 pt on cardizem gtt converts back into NSR taken off gtt and then back in Afib Propanolol dosing reviewed w GI, not standard portal hypertension dosing, will discontinue c/s Cardiology for assistance w afib and volume status diarrhea has resolved since yesterday Anticipate discharge soon 07/23/21 pt reporting hemoptysis w coughing pt w increasing work of breathing states that he feels tired bipap ordered persistent tachycardia w hemoptysis -> CTA -> +PE on imaging heparin gtt ordered discussed w pt risk of bleeding and need for anticoagulation w acute PE, pt in agreement w plan of care and will immediately report to us if feels unwell, bleeding from rectum, black stools or vomiting blood or coffee grounds. case reviewed extensively w RN Subjective Date/time seen: 07/23/21 11:08 pt w increasing work of breathing states that he feels tired bipap ordered heparin gtt ordered discussed w pt risk of bleeding and need for anticoagulation w acute PE, pt in agreement w plan of care and will immediately report to us if feels unwell, bleeding from rectum, black stools or vomiting blood or coffee grounds. case reviewed extensively w RN Exam Narrative: GENERAL: The patient is well developed,significant respiratory distress distress HEENT: Nonicteric sclerae, EOMI. Moist mucous membranes. Conjunctivae clear. CHEST: Chest wall is nontender. HEART: Tachycardic regular rhythm LUNGS: Coarse breath sound
[2021-07-23] MEDS: IPRATROPIUM BR 0.02% INH SOLN 0.5 MG/2.5 ML VIAL (11:40)
[2021-07-23] MEDS: ALBUTEROL SULFATE NEB 2.5 MG/0.5 ML INH (11:40)
--- NOTE | 2021-07-23 12:07 | PM.CNPUL ---
Assessment and Plan Assessment and plan (1) Pneumonia due to COVID-19 virus: Code(s): U07.1 - COVID-19; J12.82 - Pneumonia due to coronavirus disease 2019 Status: Acute Assessment and Plan: Remdesivir for 10 days Unless he should recover and tolerate room air with rest, ambulation and while sleeping. - Dexamethasone 6 mg IV for 10 days - Continuous pulse oximetry - Prone positioning as tolerated. - Avoid any fluid overload. - emperic azihtromycin and ceftraixone for CAP. Would complete 5 days of azithromycin and 7 days of ceftriaxone. DC on 05/21. - Albuterol inhaler Q 4 for now, no wheezes. - Will check influenza swab. Keep saturations are 90-94% with nasal cannula up to 15 L, if fails then Airvo high flow nasal cannula. I discussed code status with patient and he does not wish to be intubated and does not wish to be placed on BiPAP. Etiology of hypoxic respiratory failure is likely COVID pneumonia. New onset Afib and cardiology following. 05/13 16:31 p.m. patient placed on BiPAP. 05/14 10:28 patient off BiPAP on 5 L nasal cannula sats 96%. 05/18 20:00 8 L nasal cannula with sats 93%. 05/19 08:00 8 L nasal cannula with sats 92%. 05/20 08:13 8 L nasal cannula with sats 93%. 05/20 12:00 10 L nasal cannula with sats 98%. 05/20 16:00 8 L nasal cannula with sats 96% 05/21 08:00 10 L nasal cannula with sats 94% Keep saturations are 90-94% with nasal cannula up to 15 L, if fails then Airvo high flow nasal cannula and tocilizumab or baricitinib. I discussed code status with patient and he does not wish to be intubated and does not wish to be placed on BiPAP. Patient should have home O2 assessment an overnight oximetry prior to discharge to determine his oxygen needs. Patient should have chest x-ray prior to discharge to serve as a new baseline. (2) Acute respiratory failure with hypoxia: Code(s): J96.01 - Acute respiratory failure with hypoxia Status: Acute Assessment and Plan: 07/21/20 Patient tested positive for COVID-19 on 07/07/21 and started on remdesivir, dexamethasone on 07/07 and given five days of Remdesivir and 10 days of dexamethasone (finished 07/15/21). It appears the patient was on room air from 07/08/2021 through 07/20/2021. Patient has we had worsening hypoxemic respiratory failure since then. He reports hemoptysis. I will obtain a CT angiogram of the chest to assess for pulmonary embolism and assess his pulmonary infiltrates. I will check a influenza swab. I will add vancomycin to his cefepime and pair to empirically treat for healthcare associated pneumonia and/or aspiration pneumonia given his GI issues. Repeat echocardiogram has been ordered by the cardiology team. I agree with aggressive diuresis as tolerated by his cardiac and renal systems. Currently is on Lasix 40 mg IV b.i.d.. He does have apical predominant centrilobular emphysema on his CT scan of the chest so he does have COPD and is currently being treated for COPD exacerbation with Solu-Medrol and I will decrease the dose to 20 mg IV q.6 hours. I will changes levalbuterol to nebulization at 1.25 q.6 hours an add nebulized ipratropium 0.5 mg nebulized q.6 hours. Patient was currently requiring BiPAP 10/5 with 100% FiO2. I will check a blood gas. His previous blood gas on 07/21/2021 on 7 L high-flow showed a pH of 7.49/33/51 so there was no evidence of hypercarbic respiratory failure. I discussed level of care with the patient and he is a full code included including intubation if needed. Discussed with Dr. Espinal and Rylee Roach. will follow with you. History of Present Illness History of Present Illness Consult date: 07/23/21 Requesting physician: Otto Espinal MD Reason for consult: hypoxemia and other (hemoptysis) Chief complaint: Acute Respiratory Failure w/hypoxia,COVID-19,[place] Narrative: 07/23/2021: This is a new Pulmonary consult for hypoxemic respiratory failure and hemoptys
[2021-07-23] MEDS: BACITRACIN OINTMENT 15 GM TUBE 1 APPLIC TOPICAL (12:42)
[2021-07-23 12:43] LABS: D Dimer 3.58 ug/mL (<0.48)
[2021-07-23 12:46] LABS: CRP 5.1 mg/dL (<1.0); Lactate Dehydrogenase 348 U/L (313-618)
[2021-07-23 12:54] LABS: NT Pro B Type Natriuretic Pept 10000 pg/mL (5-100)
[2021-07-23 13:14] LABS: Alveolar/Arterial O2 Gradient 317.9 mmHg; Device BIPAP; Fractional Inspired Oxygen 60 %; HCO3 ABG 23.8 mEq/l (22.0-26.0); Modified Allen's Test Pass; Oxygen Content ABG 13.4 %vol (16.0-22.0); Oxyhemoglobin 92.6 % THb (90.0-100.0); PCO2 ABG 35.4 mmHg (35.0-45.0); PO2 FiO2 Ratio Arterial Blood 1.18 %; Site Drawn LEFT RADIAL; Total Hemoglobin 10.2 g/dL (12.0-18.0); pH ABG 7.445 (7.350-7.450)
[2021-07-23 13:15] LABS: Expiratory Pressure 5 cmH2O; Inspiratory Pressure 10 cmH2O
[2021-07-23 13:22] LABS: Erythrocyte Sedimentation Rate 33 mm/hr (0-20)
[2021-07-23 13:42] LABS: Influenza Control Positive
[2021-07-23] MEDS: IPRATROPIUM BR 0.02% INH SOLN 0.5 MG/2.5 ML VIAL INHALATION ×2 (14:16→20:00)
[2021-07-23] MEDS: PERFLUTREN LIPID MICROSPHERES 1.5 ML VIAL DILUTED TO 10 ML TOTAL VOLUME IV PUSH (16:45)
--- NOTE | 2021-07-23 16:47 | IVDEFINITY ---
Prior to administration of IV Definity the patient was educated on the risks and benefits of the imaging enhancing agent including potential adverse side effects. The patient verbalized understanding. Allergies were verified. No exclusion criteria were identified and at least one of the following inclusion criteria were met: 1) physician request, 2) patient technically difficult to image (per the [place] [employer] guidelines of two or more segments not discernable within the apical view), or 3) questionable left ventricular function. ?
[2021-07-23 18:41] LABS: Basophils Percent Auto 0.1 % (0.2-1.2); Hematocrit 32.5 % (42.0-52.0); Hemoglobin 10.1 g/dL (14.0-18.0); Immature Granulocyte Absolute 0.07 K/mm3 (0.00-0.031); Immature Granulocyte Percent A 0.7 % (0-0.5); Immature Platelet Fraction Pct 9.5 % (0.9-11.2); Lymphocytes Absolute Auto 0.34 K/mm3 (0.9-3.2); Lymphocytes Percent Auto 3.4 % (18.3-44.2); Mean Corpuscular HGB Conc 31.1 g/dl (32-36); Mean Corpuscular Hemoglobin 30.7 pg (26-34); Mean Corpuscular Volume 98.8 fl (80-100); Mean Platelet Volume 11.5 fl (7.4-10.4); Monocytes Absolute Auto 0.5 K/mm3 (0.1-0.6); Monocytes Percent Auto 5.4 % (2.6-8.5); Neutrophils Percent Auto 90.4 % (45.5-73.1); Platelet Count Result 96 k/mm3 (150-375); Red Blood Count 3.29 M/mm3 (4.6-6.20); Red Cell Distribution Width 17.2 % (11.5-14.5)
[2021-07-23 18:58] LABS: INR 1.4; Partial Thromboplastin Time 29.6 SECONDS (22.3-36.8); Prothrombin Time 17.1 Seconds (11.1-14.7)
[2021-07-23 19:43] LABS: Anisocytosis 3+ (NORMAL); Hypochromasia 1+ (NORMAL); Platelet Estimate Decreased (Adequate)
[2021-07-23] MEDS: MELATONIN 3 MG TABLET PO (20:28)
[2021-07-23] MEDS: methylPREDNISolone SOD SUCC 40 MG VIAL 20 MG IV PUSH (20:37)
[2021-07-23] MEDS: HEPARIN SODIUM 5,000 UNITS/ML VIAL 7000 UNITS IV PUSH (20:39)
[2021-07-23] MEDS: LORazepam INJ (*CRX) 2 MG/ML VIAL 0.5 MG IV PUSH (20:42)
[2021-07-23] MEDS: HEPARIN SOD/D5W 100 UNITS/ML 25,000 UNITS/250 ML BAG 15 UNITS IV CONT (20:47)
[2021-07-24] VITALS (25 sets, daily range): BP systolic 133–137; BP diastolic 58–68; PULSE 64–75; RESP 16–31; TEMP 36.1–36.8; O2SAT 92–100
[2021-07-24] MEDS: VANCOMYCIN ORAL 125 MG/2.5 ML SYRUP PO ×3 (00:01→19:02)
[2021-07-24] MEDS: methylPREDNISolone SOD SUCC 40 MG VIAL 20 MG IV PUSH ×3 (01:51→19:04)
[2021-07-24] MEDS: ALBUMIN HUMAN 25% 25 GM/100 ML 100 ML IVPB (02:11)
[2021-07-24] MEDS: IPRATROPIUM BR 0.02% INH SOLN 0.5 MG/2.5 ML VIAL INHALATION ×4 (02:39→20:22)
[2021-07-24 03:32] LABS: Hematocrit 28.1 % (42.0-52.0); Immature Granulocyte Absolute 0.03 K/mm3 (0.00-0.031); Immature Granulocyte Percent A 0.6 % (0-0.5); Lymphocytes Absolute Auto 0.26 K/mm3 (0.9-3.2); Lymphocytes Percent Auto 4.8 % (18.3-44.2); Mean Corpuscular Hemoglobin 31.4 pg (26-34); Mean Corpuscular Volume 97.9 fl (80-100); Mean Platelet Volume 11.6 fl (7.4-10.4); Monocytes Absolute Auto 0.4 K/mm3 (0.1-0.6); Monocytes Percent Auto 6.8 % (2.6-8.5); Neutrophils Absolute Auto 4.8 K/mm3 (1.3-6.7); Neutrophils Percent Auto 87.8 % (45.5-73.1); Platelet Count Result 73 k/mm3 (150-375); Red Blood Count 2.87 M/mm3 (4.6-6.20); Red Cell Distribution Width 17.2 % (11.5-14.5); White Blood Count 5.4 K/mm3 (4.5-10.0)
[2021-07-24 03:44] LABS: Alanine Aminotransferase 15 U/L (4-50); Albumin Level 4.9 g/dL (3.5-5.1); Alkaline Phosphatase 40 U/L (38-126); Anion Gap 13 mmol/L (8-16); Aspartate Amino Transferase 27 U/L (17-59); Bilirubin,Total 1.4 mg/dL (0.2-1.3); Blood Urea Nitrogen 46 mg/dL (9-20); CRP 4.2 mg/dL (<1.0); Calcium 9.2 mg/dL (8.4-10.2); Carbon Dioxide 26 mmol/L (22-30); Chloride 98 mmol/L (98-107); Estimated CRCL calculation 71 ml/min; Estimated Glomerular Filt Rate > 60; Glucose 222 mg/dL (65-110); Magnesium 2.6 mg/dL (1.6-2.3); Potassium 3.2 mmol/L (3.4-5.0); Sodium 137 mmol/L (137-145)
[2021-07-24 03:46] LABS: INR 1.7; Prothrombin Time 19.5 Seconds (11.1-14.7)
[2021-07-24 04:41] LABS: Hypochromasia 1+ (NORMAL); Platelet Estimate Decreased (Adequate)
[2021-07-24 04:44] LABS: Partial Thromboplastin Time > 200.0 SECONDS (22.3-36.8)
--- NOTE | 2021-07-24 07:31 | WPDGIPROGNO ---
Progress Note: A&P Assessment and Plan (1) Cirrhosis: Code(s): K74.60 - Unspecified cirrhosis of liver Status: Acute Assessment and Plan: etiology is hepatitis C and alcohol abuse. He has been followed by hepatology at [facility] but over due for his visit I contacted someone at the [facility] who told me that he is seen by Dr. Jyotsna Frank (2) Ascites: Code(s): R18.8 - Other ascites Status: Acute Assessment and Plan: 07/15 nearly 3 L were drawn off today. He has been started on spironolactone. I explained to the patient a fluid restriction is very important. and that he will need to restrict sodium as well. He does not believe that he has been told that in the past. I explained him that he cannot have potato chips pretzels or any other snacks at a are high in sodium. Obviously he is been receiving IV fluids since admission which contributes to his ascites . 07/16 I spoke to him again about the need to restrict fluids and in particular sodium. He seemed still surprised about this knowledge. I am sure that he had been told this before or should have been told that. I told that he will need to follow up with a doctor at the [facility]. I am trying to find out the last name of the physician. He believes that she is the director of Gastroenterology at the [facility]--Dr. Domingo or Jyotsna . 07/18 Although his total weight is down. He is still quite edematous in the right lower extremity and now in the scrotum. He will need some IV albumin to help mobilize some of this 3rd space fluid and we should start him back on Lasix now that he has been started on a maintenance dose of Aldactone 07/21 today unfortunately his weight is 102 kg. He states that he was short of breath yesterday and could not eat much in the evening. Today he is lying flat in bed and talking without significant evidence of dyspnea, able to complete sentences. 07/24 weight is still 102 kg. His albumin level is in the normal range, 4.6. I will discontinue the intravenous albumin. (3) Enteritis: Code(s): K52.9 - Noninfective gastroenteritis and colitis, unspecified Status: Acute Assessment and Plan: He has no symptoms of enteritis. This was a finding on CT scan was as a noted some small bowel mucosal thickening (4) Hypokalemia: Code(s): E87.6 - Hypokalemia Status: Acute Assessment and Plan: 07/15/21 potassium was 2.7 today. He has been given oral and IV potassium and also started on spironolactone 07/16/21 he did receive potassium supplement has been started on Aldactone which should keep his potassium from dropping further. It would probably be prudent to start him back on a low-dose of Lasix, I will begin 40 mg daily. Will consider increasing this to 80 mg per day (5) Hepatitis C: Code(s): B19.20 - Unspecified viral hepatitis C without hepatic coma Status: Acute Assessment and Plan: this was treated at least 15 years ago and is inactive (6) Acute respiratory failure with hypoxia: Code(s): J96.01 - Acute respiratory failure with hypoxia Status: Acute Assessment and Plan: respiratory distress was his primary reason for hospitalization and reactivated today likely due to the accumulation of ascitic fluid. He still feels that he is not breathing like he should an must sit up to breathe 2/10 Still using BiPAP this morning. But lying flat and relatively comfortable (7) COVID-19: Code(s): U07.1 - COVID-19 Status: Acute Assessment and Plan: this seems to be inactive at this time. He was treated with supplemental oxygen and remdesivir as well as dexamethasone. Subjective Date/time seen: 07/24/21 07:31 He is sleepy, still on his BiPAP. Denies new complaints. Despite intravenous albumin and diuretics, his weight remains unchanged. he is on Aldactone 200 mg and Lasix 80 mg, maintaining the usual 100/40
--- NOTE | 2021-07-24 09:57 | PM.IMPN ---
Progress Note: A&P Assessment and Plan (1) Leukocytosis: Code(s): D72.829 - Elevated white blood cell count, unspecified Status: Acute (2) Atrial fibrillation with RVR: Code(s): I48.91 - Unspecified atrial fibrillation Status: Acute (3) COVID-19: Code(s): U07.1 - COVID-19 Status: Acute (4) Pneumonia due to COVID-19 virus: Code(s): U07.1 - COVID-19; J12.82 - Pneumonia due to coronavirus disease 2019 Status: Acute (5) Hepatitis C: Code(s): B19.20 - Unspecified viral hepatitis C without hepatic coma Status: Acute (6) Elevated d-dimer: Code(s): R79.89 - Other specified abnormal findings of blood chemistry Status: Acute (7) Sepsis: Code(s): A41.9 - Sepsis, unspecified organism Status: Acute (8) Ascites: Code(s): R18.8 - Other ascites Status: Acute (9) Diastolic CHF: Code(s): I50.30 - Unspecified diastolic (congestive) heart failure Status: Acute (10) Urinary retention: Code(s): R33.9 - Retention of urine, unspecified Status: Acute (11) Fracture of right hip requiring operative repair: Code(s): S72.001A - Fracture of unspecified part of neck of right femur, initial encounter for closed fracture Status: Acute (12) Thrombocytopenia: Code(s): D69.6 - Thrombocytopenia, unspecified Status: Acute (13) Acute UTI: Code(s): N39.0 - Urinary tract infection, site not specified Status: Acute (14) Enteritis: Code(s): K52.9 - Noninfective gastroenteritis and colitis, unspecified Status: Acute (15) Hypokalemia: Code(s): E87.6 - Hypokalemia Status: Acute (16) Hyponatremia: Code(s): E87.1 - Hypo-osmolality and hyponatremia Status: Acute (17) Cirrhosis: Code(s): K74.60 - Unspecified cirrhosis of liver Status: Acute (18) Diarrhea: Code(s): R19.7 - Diarrhea, unspecified Status: Acute (19) Abdominal pain: Code(s): R10.9 - Unspecified abdominal pain Status: Acute (20) Acute respiratory failure with hypoxia: Code(s): J96.01 - Acute respiratory failure with hypoxia Status: Acute (21) Hemoptysis: Code(s): R04.2 - Hemoptysis Status: Acute (22) Volume overload: Code(s): E87.70 - Fluid overload, unspecified Status: Acute (23) Intermittent atrial fibrillation: Code(s): I48.0 - Paroxysmal atrial fibrillation Status: Acute (24) Pulmonary emboli: Code(s): I26.99 - Other pulmonary embolism without acute cor pulmonale Status: Acute (25) Pleural effusion: Code(s): J90 - Pleural effusion, not elsewhere classified Status: Acute Additional Plan 07/22/21 pt on cardizem gtt converts back into NSR taken off gtt and then back in Afib Propanolol dosing reviewed w GI, not standard portal hypertension dosing, will discontinue c/s Cardiology for assistance w afib and volume status diarrhea has resolved since yesterday Anticipate discharge soon 07/23/21 pt reporting hemoptysis w coughing pt w increasing work of breathing states that he feels tired bipap ordered persistent tachycardia w hemoptysis -> CTA -> +PE on imaging heparin gtt ordered discussed w pt risk of bleeding and need for anticoagulation w acute PE, pt in agreement w plan of care and will immediately report to us if feels unwell, bleeding from rectum, black stools or vomiting blood or coffee grounds. case reviewed extensively w RN 07/24/21 no further hemoptysis stable on BiPAP waiting for thoracentesis case reviewed w Dr Raman finley appreciated lit review may not need AC for small single PE in this location will dc heparin after thoracentesis if resp status improved Subjective Date/time seen: 07/24/21 09:57 on bipap doing ok waiting for thoracentesis Exam Narrative: GENERAL: The patient is well developed, no respiratory distress on BiPAP HEENT: [place]
[2021-07-24] MEDS: FLUTICASONE PROPIONATE 0.05% NA SPR 16 GM BTL (*BKC) 2 SPRAY NASAL (10:03)
[2021-07-24] MEDS: AZELASTINE HCL NASAL 0.1% 137 MCG/SPR 30 ML BTL 2 SPRAY NASAL ×2 (10:04→19:06)
--- NOTE | 2021-07-24 10:07 | PM.PNPUL ---
Progress Note: A&P Assessment and Plan (1) Acute respiratory failure with hypoxia: Code(s): J96.01 - Acute respiratory failure with hypoxia Status: Acute Assessment and Plan: 07/23/20 Patient tested positive for COVID-19 on 07/07/21 and started on remdesivir, dexamethasone on 07/07 and given five days of Remdesivir and 10 days of dexamethasone (finished 07/15/21). It appears the patient was on room air from 07/08/2021 through 07/20/2021. Patient has we had worsening hypoxemic respiratory failure since then. He reports hemoptysis. I will obtain a CT angiogram of the chest to assess for pulmonary embolism and assess his pulmonary infiltrates. I will check a influenza swab. I will add vancomycin to his cefepime and pair to empirically treat for healthcare associated pneumonia and/or aspiration pneumonia given his GI issues. Repeat echocardiogram has been ordered by the cardiology team. I agree with aggressive diuresis as tolerated by his cardiac and renal systems. Currently is on Lasix 40 mg IV b.i.d.. He does have apical predominant centrilobular emphysema on his CT scan of the chest so he does have COPD and is currently being treated for COPD exacerbation with Solu-Medrol and I will decrease the dose to 20 mg IV q.6 hours. I will changes levalbuterol to nebulization at 1.25 q.6 hours an add nebulized ipratropium 0.5 mg nebulized q.6 hours. Patient was currently requiring BiPAP 10/5 with 100% FiO2. I will check a blood gas. His previous blood gas on 07/21/2021 on 7 L high-flow showed a pH of 7.49/33/51 so there was no evidence of hypercarbic respiratory failure. I discussed level of care with the patient and he is a full code included including intubation if needed. Patient had CT angiogram of the chest with a left upper lobe segmental pulmonary embolism, low clot burden. Patient was started on IV heparin drip. Patient also had moderate right and small to moderate left pleural effusion. ABG on BiPAP 10/560% was 7.45/35/71. Echo unchanged from 07/07/21 with LV EF At greater than 70%. Grade 2 diastolic dysfunction, mildly enlarged right atrium and right ventricle normal right ventricular systolic function. Moderate pulmonary hypertension with an estimated PASP of 50. Of note on 07/07/2021 his PA SP was 46. 07/24 Patient was maintained on BiPAP rate of 16, 10/5 and 70% overnight currently his saturations are 92%. Patient tells me that he is breathing about the same. Patient's creatinine is 1.00 and Lasix has been restarted. Patient's influenza swab is negative. Patient is scheduled for right thoracentesis later today. No wheezes, continue level albuterol and ipratropium nebulizers and I have decreased his Solu-Medrol to 20 mg q.12 hours. Upper and lower extremity Dopplers are ordered for today. no hemoptysis on IV heparin for now. Discussed with Rylee Roach. will follow with you. Subjective Date/time seen: 07/24/21 10:07 Interval history: 07/23/2021: This is a new Pulmonary consult for hypoxemic respiratory failure and hemoptysis. 76-year-old man with a history of cirrhosis, hepatitis-C, recent fall with fractured right femoral neck status post right hip arthroplasty on 06/25/2021, discharged to rehab on 06/27. Patient was vaccinated and boosted for COVID and presented to the hospital on 07/06/2021 with 2 days ago of shortness of breath and hypoxemia in the emergency department requiring 4 L nasal cannula. Patient had a blood gas on 07 06 of 7.4 12/10/2061 on 4 L nasal cannulae. patient had a CT angiogram of the chest on 07/07/2021 with no pulmonary embolism trace effusions and dependent atelectasis, severe apical predominant centrilobular emphysema and cirrhosis. Patient was treated with REM de severe from 07/07 through and dexamethasone from 07/07 through 07/15. Patient had episodes of atrial fibrillation associated with shortness of breath and also had shortness of shae
[2021-07-24] MEDS: BACITRACIN OINTMENT 15 GM TUBE 1 APPLIC TOPICAL (10:12)
[2021-07-24 10:38] LABS: Hematocrit 28.5 % (42.0-52.0); Hemoglobin 8.9 g/dL (14.0-18.0)
[2021-07-24 10:48] LABS: Lactate Dehydrogenase 365 U/L (313-618)
[2021-07-24 13:20] LABS: Hematocrit 28.9 % (42.0-52.0)
[2021-07-24 13:27] LABS: Partial Thromboplastin Time 30.4 SECONDS (22.3-36.8)
--- NOTE | 2021-07-24 15:29 | PCOTNOTE ---
Addendum entered by Nori Santillan OT 07/24/21 15:32: Attempted OT re-evaluation, per RN, patient needs to be placed on hold until medically stable to participate with therapy. Patient on 15L of O2 at this time. Original Note: Unable to complete OT re-evaluation on this date. Will follow.
[2021-07-24 16:33] LABS: pH Pleural Fluid 7.495 (7.210-7.500)
--- NOTE | 2021-07-24 16:44 | PM.PNCARD ---
Progress Note: A&P Assessment and Plan (1) Intermittent atrial fibrillation: Code(s): I48.0 - Paroxysmal atrial fibrillation Status: Acute Assessment and Plan: Continue metoprolol. He has been restarted on IV heparin at this point as he was found to have a left upper lobe segmental pulmonary embolism. (2) Pneumonia due to COVID-19 virus: Code(s): U07.1 - COVID-19; J12.82 - Pneumonia due to coronavirus disease 2018 Status: Acute Assessment and Plan: Per hospitalist (3) Volume overload: Code(s): E87.70 - Fluid overload, unspecified Status: Acute Assessment and Plan: Continue IV diuretics. Repeat echocardiogram showed hyperdynamic left ventricular systolic function with an estimated EF of greater than 70%. He does have grade 2 diastolic dysfunction. Mild JENNIFER. Moderate pulmonary hypertension, estimated PASP 50 mmHg. (4) Cirrhosis: Code(s): K74.60 - Unspecified cirrhosis of liver Status: Acute (5) Hemoptysis: Code(s): R04.2 - Hemoptysis Status: Acute Assessment and Plan: Resolved. (6) Pleural effusion: Code(s): J90 - Pleural effusion, not elsewhere classified Status: Acute Assessment and Plan: Plan to undergo thoracentesis today. Subjective Date/time seen: 07/24/21 16:44 Interval history: 76-year-old admitted for COVID. Was seen in consultation by Dr. Parham on July 07. This is for elevated troponins. We are now reconsulted because of atrial fibrillation Date of service 07/22/2021: Patient has had recurrent episodes of atrial fibrillation but with controlled ventricular response. Now in sinus rhythm on diltiazem. Had increased work of breathing yesterday and has been put on diuretics. Date of service 07/23/2021: He is having diego hemoptysis. Remains in sinus rhythm. No chest pain. Still short of breath Date of service 07/24/2021: Hemoptysis has resolved. He is not feeling very well today. He remains on BiPAP and persistently short of breath. Remains in sinus rhythm. Review of Systems Constitutional: Constitutional: Denies excessive sweating, Denies headache(s) and Reports weakness Eyes: Eyes: Reports no additional eye complaints ENT: Reports Normal hearing present and Denies headache(s) Cardiovascular: Cardiovascular: Denies chest pain and Reports dyspnea Respiratory: Respiratory: Reports as per HPI, Reports cough, Reports hemoptysis and Reports dyspnea Gastrointestinal: Gastrointestinal: Denies abdominal pain Genitourinary: Genitourinary: Denies dysuria Musculoskeletal: Musculoskeletal: Reports no additional musculoskeletal complaints Integumentary/Breasts: Skin/Breast: Reports system reviewed and no additional complaints, except as docu Neurologic: Reports Normal hearing present, Denies headache(s) and Reports weakness Psychiatric: Psychiatric: Denies anxiety Endocrine: Endocrine: Denies excessive sweating Hematologic/Lymphatic: Hematologic/Lymphatic: Reports easy bleeding Allergic/Immunologic: Allergic/Immunologic: Denies GI upset with certain foods Exam Const: General: awake, ill appearing and uncomfortable HENMT: Head: normal to inspection Mouth: Yes moist mucous membranes Eyes: Sclera: sclerae normal Pupils: Equal, round and reactive pupils present Neck: Neck: supple and no JVD Resp: Auscultation: rhonchi (Central rhonchi) and diminished lung sounds Cardio: Rate: regular rate Rhythm: regular rhythm Heart sounds: no murmurs Peripheral pulses: Peripheral pulses 2+ throughout GI: Auscultation: normal bowel sounds Skin: General skin exam: normal color Neuro: Cranial nerves: Yes Equal, round and reactive pupils present and Yes Normal hearing present Cognition (Neuro): normal cognition Extrem: Other: Mild chronic appearing edema of the 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
[2021-07-24 17:31] LABS: Appearance Pleural Fluid Clear (Clear); Color Pleural Fluid Yellow (Colorless); Pleural fluid source Pleural fluid
[2021-07-24 17:33] LABS: Lymphocytes Pleural Fluid 50 %; Macrophages Pleural Fluid 10 %; Monocytes Pleural Fluid 30 %; Neutrophils Pleural Fluid 10 % (0-25)
[2021-07-24 19:01] LABS: Hematocrit 30.2 % (42.0-52.0); Hemoglobin 9.2 g/dL (14.0-18.0)
[2021-07-24] MEDS: methylPHENIDATE HCL (*CRX) 5 MG TABLET PO (19:02)
[2021-07-24] MEDS: SACCHAROMYCES BOULARDII 250 MG CAPSULE PO (19:07)
[2021-07-25] VITALS (28 sets, daily range): BP systolic 130–150; BP diastolic 50–72; PULSE 66–82; RESP 20–24; TEMP 35.7–36.8; O2SAT 94–99
[2021-07-25] MEDS: IPRATROPIUM BR 0.02% INH SOLN 0.5 MG/2.5 ML VIAL INHALATION ×4 (02:34→19:45)
[2021-07-25 03:40] LABS: Hemoglobin 9.4 g/dL (14.0-18.0); Immature Granulocyte Absolute 0.02 K/mm3 (0.00-0.031); Immature Granulocyte Percent A 0.5 % (0-0.5); Immature Platelet Fraction Pct 7.3 % (0.9-11.2); Lymphocytes Absolute Auto 0.21 K/mm3 (0.9-3.2); Lymphocytes Percent Auto 4.9 % (18.3-44.2); Mean Corpuscular HGB Conc 31.3 g/dl (32-36); Mean Corpuscular Hemoglobin 30.8 pg (26-34); Mean Corpuscular Volume 98.4 fl (80-100); Mean Platelet Volume 11.3 fl (7.4-10.4); Monocytes Absolute Auto 0.5 K/mm3 (0.1-0.6); Monocytes Percent Auto 10.7 % (2.6-8.5); Neutrophils Absolute Auto 3.6 K/mm3 (1.3-6.7); Neutrophils Percent Auto 83.9 % (45.5-73.1); Platelet Count Result 65 k/mm3 (150-375); Red Blood Count 3.05 M/mm3 (4.6-6.20); Red Cell Distribution Width 16.6 % (11.5-14.5); White Blood Count 4.3 K/mm3 (4.5-10.0)
[2021-07-25 04:02] LABS: Alanine Aminotransferase 17 U/L (4-50); Albumin Level 4.1 g/dL (3.5-5.1); Alkaline Phosphatase 50 U/L (38-126); Anion Gap 7 mmol/L (8-16); Aspartate Amino Transferase 33 U/L (17-59); Bilirubin,Total 1.2 mg/dL (0.2-1.3); Blood Urea Nitrogen 44 mg/dL (9-20); Carbon Dioxide 30 mmol/L (22-30); Chloride 103 mmol/L (98-107); Estimated CRCL calculation 87 ml/min; Estimated Glomerular Filt Rate > 60; Glucose 151 mg/dL (65-110); Magnesium 2.8 mg/dL (1.6-2.3); Potassium 3.4 mmol/L (3.4-5.0); Sodium 140 mmol/L (137-145)
[2021-07-25 05:41] LABS: Vancomycin Trough 16.2 ug/mL (10.0-20.0)
--- NOTE | 2021-07-25 08:59 | PM.PNCARD ---
Progress Note: A&P Assessment and Plan (1) Intermittent atrial fibrillation: Code(s): I48.0 - Paroxysmal atrial fibrillation Status: Acute Assessment and Plan: Continue metoprolol. Was on heparin for pulmonary embolism (2) Pneumonia due to COVID-19 virus: Code(s): U07.1 - COVID-19; J12.82 - Pneumonia due to coronavirus disease 2019 Status: Acute Assessment and Plan: Per hospitalist (3) Volume overload: Code(s): E87.70 - Fluid overload, unspecified Status: Acute Assessment and Plan: Continue IV diuretics. Repeat echocardiogram showed hyperdynamic left ventricular systolic function with an estimated EF of greater than 70%. He does have grade 2 diastolic dysfunction. Mild JENNIFER. Moderate pulmonary hypertension, estimated PASP 50 mmHg. Continue IV diuretics but will lower then down to furosemide 40 mg IV once daily. Replace potassium 40 mg p.o. x1. (4) Cirrhosis: Code(s): K74.60 - Unspecified cirrhosis of liver Status: Acute (5) Hemoptysis: Code(s): R04.2 - Hemoptysis Status: Acute Assessment and Plan: Still coughing up blood when BiPAP is off (6) Pleural effusion: Code(s): J90 - Pleural effusion, not elsewhere classified Status: Acute Assessment and Plan: Thoracentesis yesterday removed 1 L fluid (7) Chest pain: Code(s): R07.9 - Chest pain, unspecified Status: Acute Assessment and Plan: Pleuritic in nature. Unlikely cardiac but will check an EKG and troponin now. Subjective Date/time seen: 07/25/21 08:59 Interval history: 76-year-old admitted for COVID. Was seen in consultation by Dr. Parham on July 07. This is for elevated troponins. We are now reconsulted because of atrial fibrillation Date of service 07/22/2021: Patient has had recurrent episodes of atrial fibrillation but with controlled ventricular response. Now in sinus rhythm on diltiazem. Had increased work of breathing yesterday and has been put on diuretics. Date of service 07/23/2021: He is having diego hemoptysis. Remains in sinus rhythm. No chest pain. Still short of breath Date of service 07/24/2021: Hemoptysis has resolved. He is not feeling very well today. He remains on BiPAP and persistently short of breath. Remains in sinus rhythm. Date of service 07/25/2021: Complains some right-sided chest pain today. It is pleuritic. He also is hungry and wants to eat. Seems more comfortable on BiPAP. Status post thoracentesis with 1 L removed yesterday Review of Systems Constitutional: Constitutional: Denies excessive sweating, Denies headache(s) and Reports weakness Eyes: Eyes: Reports no additional eye complaints ENT: Reports Normal hearing present and Denies headache(s) Cardiovascular: Cardiovascular: Denies chest pain and Reports dyspnea Respiratory: Respiratory: Reports as per HPI, Reports cough, Reports hemoptysis and Reports dyspnea Gastrointestinal: Gastrointestinal: Denies abdominal pain Genitourinary: Genitourinary: Denies dysuria Musculoskeletal: Musculoskeletal: Reports no additional musculoskeletal complaints Integumentary/Breasts: Skin/Breast: Reports system reviewed and no additional complaints, except as docu Neurologic: Reports Normal hearing present, Denies headache(s) and Reports weakness Psychiatric: Psychiatric: Denies anxiety Endocrine: Endocrine: Denies excessive sweating Hematologic/Lymphatic: Hematologic/Lymphatic: Reports easy bleeding Allergic/Immunologic: Allergic/Immunologic: Denies GI upset with certain foods Exam Narrative: appears to be in distress Const: General: awake, ill appearing and uncomfortable HENMT: Head: normal to inspection Mouth: Yes moist mucous membranes Eyes: Sclera: sclerae normal Pupils: Equal, round and reactive pupils present Neck: Neck: supple and no JVD Resp: Auscultation: rhonchi (Central rhonchi) and diminished lung sounds Oth
--- NOTE | 2021-07-25 09:06 | ECG_ITS ---
Measurements Intervals [place] Rate: 75 P: 22 VT: 163 QRS: -14 QRSD: 99 T: 24 QT: 418 QTc: 470 Interpretive Statements SINUS RHYTHM ATRIAL AND VENTRICULAR PREMATURE COMPLEXES LOW QRS VOLTAGE IN PRECORDIAL LEADS CONSIDER INFERIOR INFARCT, AGE INDETERMINATE ST-T WAVE ABNORMALITY IN ANTERIOR LEADS- CONSIDER ISCHEMIA BASELINE ARTIFACT- I, II, AVR, AVL, AVF ABNORMAL ECG Electronically Signed On 07-25-2021 10:43:35 [employer]GING [employer] FINISHER by Dani Suarez D.O.
[2021-07-25] MEDS: HYDROcodone/acetaminophen (*CRX) 5-325 MG TABLET 1 TAB PO ×2 (09:18→20:08)
[2021-07-25] MEDS: POTASSIUM CHLORIDE 20 MEQ TABLET 40 MEQ PO (09:18)
[2021-07-25] MEDS: SPIRONOLACTONE 50 MG TABLET 200 MG PO (09:26)
[2021-07-25] MEDS: SACCHAROMYCES BOULARDII 250 MG CAPSULE PO ×2 (09:26→17:56)
[2021-07-25] MEDS: PSYLLIUM POWDER PACKET 1 PACKET PO (09:26)
[2021-07-25] MEDS: LORATADINE 10 MG TABLET PO (09:29)
[2021-07-25] MEDS: PANTOPRAZOLE 40 MG TABLET PO (09:29)
[2021-07-25] MEDS: FLUTICASONE PROPIONATE 0.05% NA SPR 16 GM BTL (*BKC) 2 SPRAY NASAL (09:29)
[2021-07-25] MEDS: methylPREDNISolone SOD SUCC 40 MG VIAL 20 MG IV PUSH (09:30)
[2021-07-25] MEDS: AZELASTINE HCL NASAL 0.1% 137 MCG/SPR 30 ML BTL 2 SPRAY NASAL ×2 (09:30→17:56)
[2021-07-25] MEDS: CHOLECALCIFEROL 1,000 UNITS TABLET 2000 UNITS PO (09:30)
[2021-07-25] MEDS: FINASTERIDE 5 MG TABLET PO (09:30)
[2021-07-25] MEDS: ESCITALOPRAM OXALATE 10 MG TABLET 20 MG PO (09:30)
[2021-07-25] MEDS: BACITRACIN OINTMENT 15 GM TUBE 1 APPLIC TOPICAL (09:30)
--- NOTE | 2021-07-25 09:30 | WPDGIPROGNO ---
Progress Note: A&P Assessment and Plan (1) Cirrhosis: Code(s): K74.60 - Unspecified cirrhosis of liver Status: Acute Assessment and Plan: etiology is hepatitis C and alcohol abuse. He has been followed by hepatology at [facility] but over due for his visit I contacted someone at the [facility] who told me that he is seen by Dr. Jyotsna Frank (2) Ascites: Code(s): R18.8 - Other ascites Status: Acute Assessment and Plan: 07/15 nearly 3 L were drawn off today. He has been started on spironolactone. I explained to the patient a fluid restriction is very important. and that he will need to restrict sodium as well. He does not believe that he has been told that in the past. I explained him that he cannot have potato chips pretzels or any other snacks at a are high in sodium. Obviously he is been receiving IV fluids since admission which contributes to his ascites . 07/16 I spoke to him again about the need to restrict fluids and in particular sodium. He seemed still surprised about this knowledge. I am sure that he had been told this before or should have been told that. I told that he will need to follow up with a doctor at the [facility]. I am trying to find out the last name of the physician. He believes that she is the director of Gastroenterology at the [facility]--Dr. Domingo or Jyotsna . 07/18 Although his total weight is down. He is still quite edematous in the right lower extremity and now in the scrotum. He will need some IV albumin to help mobilize some of this 3rd space fluid and we should start him back on Lasix now that he has been started on a maintenance dose of Aldactone 07/21 today unfortunately his weight is 102 kg. He states that he was short of breath yesterday and could not eat much in the evening. Today he is lying flat in bed and talking without significant evidence of dyspnea, able to complete sentences. 07/24 weight is still 102 kg. His albumin level is in the normal range, 4.6. I will discontinue the intravenous albumin. 07/25 due to rather refractory ascites and edema, will obtain ultrasound to rule out portal vein thrombosis. (3) Enteritis: Code(s): K52.9 - Noninfective gastroenteritis and colitis, unspecified Status: Acute Assessment and Plan: He has no symptoms of enteritis. This was a finding on CT scan was as a noted some small bowel mucosal thickening (4) Hypokalemia: Code(s): E87.6 - Hypokalemia Status: Acute Assessment and Plan: 07/15/21 potassium was 2.7 today. He has been given oral and IV potassium and also started on spironolactone 07/16/21 he did receive potassium supplement has been started on Aldactone which should keep his potassium from dropping further. It would probably be prudent to start him back on a low-dose of Lasix, I will begin 40 mg daily. Will consider increasing this to 80 mg per day 07/25 Potassium level has been remained within normal limits on the current regimen (5) Hepatitis C: Code(s): B19.20 - Unspecified viral hepatitis C without hepatic coma Status: Acute Assessment and Plan: this was treated at least 15 years ago and is inactive (6) Acute respiratory failure with hypoxia: Code(s): J96.01 - Acute respiratory failure with hypoxia Status: Acute Assessment and Plan: respiratory distress was his primary reason for hospitalization and reactivated today likely due to the accumulation of ascitic fluid. He still feels that he is not breathing like he should an must sit up to breathe 2/10 Still using BiPAP this morning. But lying flat and relatively comfortable (7) COVID-19: Code(s): U07.1 - COVID-19 Status: Acute Assessment and Plan: this seems to be inactive at this time. He was treated with supplemental oxygen and remdesivir as well as dexamethasone. Subjective Date/time seen: 07/25/21 09:30 Dr. Camargo
[2021-07-25] MEDS: METOPROLOL TARTRATE 25 MG TABLET PO ×2 (09:33→20:08)
[2021-07-25] MEDS: DOCUSATE SODIUM 100 MG CAPSULE PO (09:34)
[2021-07-25] MEDS: methylPHENIDATE HCL (*CRX) 5 MG TABLET PO ×2 (09:38→17:56)
[2021-07-25 10:27] LABS: Troponin I 0.106 ng/mL (0.000-0.034)
--- NOTE | 2021-07-25 10:53 | PM.PNPUL ---
Progress Note: A&P Assessment and Plan (1) Acute respiratory failure with hypoxia: Code(s): J96.01 - Acute respiratory failure with hypoxia Status: Acute Assessment and Plan: 07/23/20 Patient tested positive for COVID-19 on 07/07/21 and started on remdesivir, dexamethasone on 07/07 and given five days of Remdesivir and 10 days of dexamethasone (finished 07/15/21). It appears the patient was on room air from 07/08/2021 through 07/20/2021. Patient has we had worsening hypoxemic respiratory failure since then. He reports hemoptysis. I will obtain a CT angiogram of the chest to assess for pulmonary embolism and assess his pulmonary infiltrates. I will check a influenza swab. This was negative. I will add vancomycin to his cefepime and pair to empirically treat for healthcare associated pneumonia and/or aspiration pneumonia given his GI issues. Repeat echocardiogram has been ordered by the cardiology team. I agree with aggressive diuresis as tolerated by his cardiac and renal systems. Currently is on Lasix 40 mg IV b.i.d.. He does have apical predominant centrilobular emphysema on his CT scan of the chest so he does have COPD and is currently being treated for COPD exacerbation with Solu-Medrol and I will decrease the dose to 20 mg IV q.6 hours. I will changes levalbuterol to nebulization at 1.25 q.6 hours an add nebulized ipratropium 0.5 mg nebulized q.6 hours. Patient was currently requiring BiPAP 10/5 with 100% FiO2. I will check a blood gas. His previous blood gas on 07/21/2021 on 7 L high-flow showed a pH of 7.49/33/51 so there was no evidence of hypercarbic respiratory failure. I discussed level of care with the patient and he is a full code included including intubation if needed. Patient had CT angiogram of the chest with a left upper lobe segmental pulmonary embolism, low clot burden. Patient was started on IV heparin drip. Patient also had moderate right and small to moderate left pleural effusion. ABG on BiPAP 10/5 and 60% was 7.45/35/71. Echo unchanged from 07/07/21 with LV EF At greater than 70%. Grade 2 diastolic dysfunction, mildly enlarged right atrium and right ventricle normal right ventricular systolic function. Moderate pulmonary hypertension with an estimated PASP of 50. Of note on 07/07/2021 his PA SP was 46. 07/24 Patient was maintained on BiPAP rate of 16, 10/5 and 70% overnight currently his saturations are 92%. Patient tells me that he is breathing about the same. Patient's creatinine is 1.00 and Lasix has been restarted. Patient's influenza swab is negative. Patient is scheduled for right thoracentesis later today. No wheezes, continue level albuterol and ipratropium nebulizers and I have decreased his Solu-Medrol to 20 mg q.12 hours. Upper and lower extremity Dopplers are ordered for today. hemoptysis on IV heparin for now. Upper and lower extremity Dopplers are negative for DVT. Patient had a right thoracentesis with 1000 mL of clear yellow fluid removed. PH was 7.50, cell differential neutrophils 10%, lymphocytes 50%, monocytes 30%, macrophages 10%. Gram stain with no organisms and no white blood cells seen. Remainder of studies are pending. 07/25 Patient took his BiPAP off for dinner last night for about a 1/2 hour and has been on BiPAP overnight. I switched him to noninvasive ventilation with an AVAPS mode with the settings of a rate of 20, tidal volume 500, EPAP 5, minimal inspiratory pressure 6, maximal inspiratory pressure 20, inspiratory time 1.0, rise 3 and 70%. Saturations were 99% on the settings this morning with a peak inspiratory pressure of 6-7. I converted him to high-flow nasal cannula with the airflow at 55 L flow and 70% FiO2 with saturations of 97%. Chest x-ray with unchanged diffuse interstitial alveolar infiltrates. Etiology of acute hypoxemic respiratory failure includes fluid overload, bilateral pleural effusion
[2021-07-25 12:15] LABS: Rheumatoid Factor < 8.6 IU/ML (<12)
[2021-07-25] MEDS: VANCOMYCIN ORAL 125 MG/2.5 ML SYRUP PO ×2 (13:16→17:56)
[2021-07-25] MEDS: BUDESONIDE RESPULE NEB 0.5 MG/2 ML AMP INHALATION ×2 (14:16→19:45)
--- NOTE | 2021-07-25 14:26 | PM.IMPN ---
Progress Note: A&P Assessment and Plan (1) Leukocytosis: Code(s): D72.829 - Elevated white blood cell count, unspecified Status: Acute (2) Atrial fibrillation with RVR: Code(s): I48.91 - Unspecified atrial fibrillation Status: Acute (3) COVID-19: Code(s): U07.1 - COVID-19 Status: Acute (4) Pneumonia due to COVID-19 virus: Code(s): U07.1 - COVID-19; J12.82 - Pneumonia due to coronavirus disease 2019 Status: Acute (5) Hepatitis C: Code(s): B19.20 - Unspecified viral hepatitis C without hepatic coma Status: Acute (6) Elevated d-dimer: Code(s): R79.89 - Other specified abnormal findings of blood chemistry Status: Acute (7) Sepsis: Code(s): A41.9 - Sepsis, unspecified organism Status: Acute (8) Ascites: Code(s): R18.8 - Other ascites Status: Acute (9) Diastolic CHF: Code(s): I50.30 - Unspecified diastolic (congestive) heart failure Status: Acute (10) Urinary retention: Code(s): R33.9 - Retention of urine, unspecified Status: Acute (11) Fracture of right hip requiring operative repair: Code(s): S72.001A - Fracture of unspecified part of neck of right femur, initial encounter for closed fracture Status: Acute (12) Thrombocytopenia: Code(s): D69.6 - Thrombocytopenia, unspecified Status: Acute (13) Acute UTI: Code(s): N39.0 - Urinary tract infection, site not specified Status: Acute (14) Enteritis: Code(s): K52.9 - Noninfective gastroenteritis and colitis, unspecified Status: Acute (15) Hypokalemia: Code(s): E87.6 - Hypokalemia Status: Acute (16) Hyponatremia: Code(s): E87.1 - Hypo-osmolality and hyponatremia Status: Acute (17) Cirrhosis: Code(s): K74.60 - Unspecified cirrhosis of liver Status: Acute (18) Diarrhea: Code(s): R19.7 - Diarrhea, unspecified Status: Acute (19) Abdominal pain: Code(s): R10.9 - Unspecified abdominal pain Status: Acute (20) Acute respiratory failure with hypoxia: Code(s): J96.01 - Acute respiratory failure with hypoxia Status: Acute (21) Hemoptysis: Code(s): R04.2 - Hemoptysis Status: Acute (22) Volume overload: Code(s): E87.70 - Fluid overload, unspecified Status: Acute (23) Intermittent atrial fibrillation: Code(s): I48.0 - Paroxysmal atrial fibrillation Status: Acute (24) Pulmonary emboli: Code(s): I26.99 - Other pulmonary embolism without acute cor pulmonale Status: Acute (25) Pleural effusion: Code(s): J90 - Pleural effusion, not elsewhere classified Status: Acute Additional Plan 07/22/21 pt on cardizem gtt converts back into NSR taken off gtt and then back in Afib Propanolol dosing reviewed w GI, not standard portal hypertension dosing, will discontinue c/s Cardiology for assistance w afib and volume status diarrhea has resolved since yesterday Anticipate discharge soon 07/23/21 pt reporting hemoptysis w coughing pt w increasing work of breathing states that he feels tired bipap ordered persistent tachycardia w hemoptysis -> CTA -> +PE on imaging heparin gtt ordered discussed w pt risk of bleeding and need for anticoagulation w acute PE, pt in agreement w plan of care and will immediately report to us if feels unwell, bleeding from rectum, black stools or vomiting blood or coffee grounds. case reviewed extensively w RN 07/24/21 no further hemoptysis stable on BiPAP waiting for thoracentesis case reviewed w Dr Camargo recs appreciated lit review may not need AC for small single PE in this location will dc heparin after thoracentesis if resp status improved 07/25/21 pt doing ok minimal improvement but not declining pt seen by multiple services, recs appreciated GI -> US to rule out portal vein thrombosis cardio managing diuresis pulm managing
[2021-07-25] MEDS: MELATONIN 3 MG TABLET PO (20:08)
[2021-07-25] MEDS: methocarbamoL 500 MG TABLET PO (20:10)
[2021-07-26] VITALS (24 sets, daily range): BP systolic 134–145; BP diastolic 56–76; PULSE 67–112; RESP 18–26; TEMP 36.4–37; O2SAT 91–98
[2021-07-26] MEDS: VANCOMYCIN ORAL 125 MG/2.5 ML SYRUP PO ×3 (00:16→12:25)
[2021-07-26] MEDS: HYDROcodone/acetaminophen (*CRX) 5-325 MG TABLET 1 TAB PO ×3 (03:47→20:56)
[2021-07-26 04:30] LABS: Hematocrit 31.7 % (42.0-52.0); Immature Granulocyte Absolute 0.02 K/mm3 (0.00-0.031); Immature Granulocyte Percent A 0.4 % (0-0.5); Immature Platelet Fraction Pct 7.6 % (0.9-11.2); Lymphocytes Absolute Auto 0.35 K/mm3 (0.9-3.2); Lymphocytes Percent Auto 6.1 % (18.3-44.2); Mean Corpuscular HGB Conc 31.5 g/dl (32-36); Mean Corpuscular Hemoglobin 30.6 pg (26-34); Mean Corpuscular Volume 96.9 fl (80-100); Mean Platelet Volume 11.6 fl (7.4-10.4); Monocytes Absolute Auto 0.5 K/mm3 (0.1-0.6); Monocytes Percent Auto 8.9 % (2.6-8.5); Neutrophils Absolute Auto 4.8 K/mm3 (1.3-6.7); Neutrophils Percent Auto 84.6 % (45.5-73.1); Platelet Count Result 62 k/mm3 (150-375); Red Blood Count 3.27 M/mm3 (4.6-6.20); White Blood Count 5.7 K/mm3 (4.5-10.0)
[2021-07-26] MEDS: IPRATROPIUM BR 0.02% INH SOLN 0.5 MG/2.5 ML VIAL INHALATION ×4 (04:39→20:26)
[2021-07-26 05:12] LABS: Alanine Aminotransferase 30 U/L (4-50); Albumin Level 3.6 g/dL (3.5-5.1); Alkaline Phosphatase 59 U/L (38-126); Anion Gap 3 mmol/L (8-16); Aspartate Amino Transferase 46 U/L (17-59); Bilirubin,Total 1.3 mg/dL (0.2-1.3); Blood Urea Nitrogen 36 mg/dL (9-20); CRP 3.6 mg/dL (<1.0); Calcium 8.9 mg/dL (8.4-10.2); Carbon Dioxide 29 mmol/L (22-30); Chloride 103 mmol/L (98-107); Estimated CRCL calculation 88 ml/min; Estimated Glomerular Filt Rate > 60; Glucose 130 mg/dL (65-110); Magnesium 2.6 mg/dL (1.6-2.3); Potassium 3.7 mmol/L (3.4-5.0); Sodium 135 mmol/L (137-145)
[2021-07-26] MEDS: methylPHENIDATE HCL (*CRX) 5 MG TABLET PO ×2 (09:33→18:40)
[2021-07-26] MEDS: FUROSEMIDE INJ 40 MG/4 ML VIAL IV PUSH (09:33)
[2021-07-26] MEDS: FINASTERIDE 5 MG TABLET PO (09:33)
[2021-07-26] MEDS: METOPROLOL TARTRATE 25 MG TABLET PO ×2 (09:34→20:54)
[2021-07-26] MEDS: CHOLECALCIFEROL 1,000 UNITS TABLET 2000 UNITS PO (09:34)
[2021-07-26] MEDS: PANTOPRAZOLE 40 MG TABLET PO (09:34)
[2021-07-26] MEDS: ESCITALOPRAM OXALATE 10 MG TABLET 20 MG PO (09:34)
[2021-07-26] MEDS: SACCHAROMYCES BOULARDII 250 MG CAPSULE PO ×2 (09:35→18:41)
[2021-07-26] MEDS: LORATADINE 10 MG TABLET PO (09:35)
[2021-07-26] MEDS: SPIRONOLACTONE 50 MG TABLET 200 MG PO (09:35)
[2021-07-26] MEDS: BUDESONIDE RESPULE NEB 0.5 MG/2 ML AMP INHALATION ×2 (09:46→20:26)
[2021-07-26] MEDS: BACITRACIN OINTMENT 15 GM TUBE 1 APPLIC TOPICAL (11:14)
--- NOTE | 2021-07-26 15:34 | P.PNIM_ITS ---
Progress Note: A&P Assessment and Plan (1) Leukocytosis: Code(s): D72.829 - Elevated white blood cell count, unspecified Status: Acute (2) Atrial fibrillation with RVR: Code(s): I48.91 - Unspecified atrial fibrillation Status: Acute (3) COVID-19: Code(s): U07.1 - COVID-19 Status: Acute (4) Pneumonia due to COVID-19 virus: Code(s): U07.1 - COVID-19; J12.82 - Pneumonia due to coronavirus disease 2019 Status: Acute (5) Hepatitis C: Code(s): B19.20 - Unspecified viral hepatitis C without hepatic coma Status: Acute (6) Elevated d-dimer: Code(s): R79.89 - Other specified abnormal findings of blood chemistry Status: Acute (7) Sepsis: Code(s): A41.9 - Sepsis, unspecified organism Status: Acute (8) Ascites: Code(s): R18.8 - Other ascites Status: Acute (9) Diastolic CHF: Code(s): I50.30 - Unspecified diastolic (congestive) heart failure Status: Acute (10) Urinary retention: Code(s): R33.9 - Retention of urine, unspecified Status: Acute (11) Fracture of right hip requiring operative repair: Code(s): S72.001A - Fracture of unspecified part of neck of right femur, initial encounter for closed fracture Status: Acute (12) Thrombocytopenia: Code(s): D69.6 - Thrombocytopenia, unspecified Status: Acute (13) Acute UTI: Code(s): N39.0 - Urinary tract infection, site not specified Status: Acute (14) Enteritis: Code(s): K52.9 - Noninfective gastroenteritis and colitis, unspecified Status: Acute (15) Hypokalemia: Code(s): E87.6 - Hypokalemia Status: Acute (16) Hyponatremia: Code(s): E87.1 - Hypo-osmolality and hyponatremia Status: Acute (17) Cirrhosis: Code(s): K74.60 - Unspecified cirrhosis of liver Status: Acute (18) Diarrhea: Code(s): R19.7 - Diarrhea, unspecified Status: Acute (19) Abdominal pain: Code(s): R10.9 - Unspecified abdominal pain Status: Acute (20) Acute respiratory failure with hypoxia: Code(s): J96.01 - Acute respiratory failure with hypoxia Status: Acute (21) Hemoptysis: Code(s): R04.2 - Hemoptysis Status: Acute (22) Volume overload: Code(s): E87.70 - Fluid overload, unspecified Status: Acute (23) Intermittent atrial fibrillation: Code(s): I48.0 - Paroxysmal atrial fibrillation Status: Acute (24) Pulmonary emboli: Code(s): I26.99 - Other pulmonary embolism without acute cor pulmonale Status: Acute (25) Pleural effusion: Code(s): J90 - Pleural effusion, not elsewhere classified Status: Acute Additional Plan 07/22/21 pt on cardizem gtt converts back into NSR taken off gtt and then back in Afib Propanolol dosing reviewed w GI, not standard portal hypertension dosing, will discontinue c/s Cardiology for assistance w afib and volume status diarrhea has resolved since yesterday Anticipate discharge soon 07/23/21 pt reporting hemoptysis w coughing pt w increasing work of breathing states that he feels tired bipap ordered persistent tachycardia w hemoptysis -> CTA -> +PE on imaging heparin gtt ordered discussed w pt risk of bleeding and need for anticoagulation w acute PE, pt in agreement w plan of care and will immediately report to us if feels unwell, bleeding from rectum, black stools or vomiting blood or coffee grounds.
[2021-07-26] MEDS: FUROSEMIDE INJ 100 MG/10 ML VIAL 60 MG IV PUSH (18:41)
[2021-07-26] MEDS: AZELASTINE HCL NASAL 0.1% 137 MCG/SPR 30 ML BTL 2 SPRAY NASAL (18:41)
[2021-07-26] MEDS: MELATONIN 3 MG TABLET PO (20:54)
[2021-07-26] MEDS: methocarbamoL 500 MG TABLET PO (20:55)
[2021-07-27] VITALS (23 sets, daily range): BP systolic 119–141; BP diastolic 52–72; PULSE 73–148; RESP 16–24; TEMP 36.7–37; O2SAT 87–97
[2021-07-27] MEDS: IPRATROPIUM BR 0.02% INH SOLN 0.5 MG/2.5 ML VIAL INHALATION ×4 (02:25→20:37)
[2021-07-27] MEDS: CENTRAL LINE FLUSH 20 ML IV PUSH (05:55)
[2021-07-27] MEDS: CENTRAL LINE FLUSH 10 ML IV PUSH ×3 (05:55→21:19)
[2021-07-27 06:12] LABS: Basophils Percent Auto 0.2 % (0.2-1.2); Eosinophils Absolute Auto 0.2 K/mm3 (0-0.3); Eosinophils Percent Auto 3.2 % (0-4.4); Hematocrit 34.1 % (42.0-52.0); Hemoglobin 10.9 g/dL (14.0-18.0); Immature Granulocyte Absolute 0.04 K/mm3 (0.00-0.031); Immature Granulocyte Percent A 0.6 % (0-0.5); Immature Platelet Fraction Pct 10.1 % (0.9-11.2); Lymphocytes Absolute Auto 0.65 K/mm3 (0.9-3.2); Lymphocytes Percent Auto 10.3 % (18.3-44.2); Mean Corpuscular Hemoglobin 30.4 pg (26-34); Mean Corpuscular Volume 95.3 fl (80-100); Mean Platelet Volume 11.6 fl (7.4-10.4); Monocytes Absolute Auto 0.6 K/mm3 (0.1-0.6); Monocytes Percent Auto 9.4 % (2.6-8.5); Neutrophils Absolute Auto 4.8 K/mm3 (1.3-6.7); Neutrophils Percent Auto 76.3 % (45.5-73.1); Platelet Count Result 55 k/mm3 (150-375); Red Blood Count 3.58 M/mm3 (4.6-6.20); Red Cell Distribution Width 15.9 % (11.5-14.5); White Blood Count 6.3 K/mm3 (4.5-10.0)
[2021-07-27 06:28] LABS: Anion Gap 7 mmol/L (8-16); Blood Urea Nitrogen 30 mg/dL (9-20); CRP 6.1 mg/dL (<1.0); Calcium 8.5 mg/dL (8.4-10.2); Carbon Dioxide 31 mmol/L (22-30); Chloride 99 mmol/L (98-107); Estimated CRCL calculation 88 ml/min; Estimated Glomerular Filt Rate > 60; Glucose 98 mg/dL (65-110); Magnesium 2.3 mg/dL (1.6-2.3); Potassium 3.4 mmol/L (3.4-5.0); Sodium 137 mmol/L (137-145)
[2021-07-27] MEDS: BUDESONIDE RESPULE NEB 0.5 MG/2 ML AMP INHALATION ×2 (07:58→20:37)
[2021-07-27] MEDS: ESCITALOPRAM OXALATE 10 MG TABLET 20 MG PO (09:20)
[2021-07-27] MEDS: AZELASTINE HCL NASAL 0.1% 137 MCG/SPR 30 ML BTL 2 SPRAY NASAL ×2 (09:20→17:20)
[2021-07-27] MEDS: FLUTICASONE PROPIONATE 0.05% NA SPR 16 GM BTL (*BKC) 2 SPRAY NASAL (09:20)
[2021-07-27] MEDS: SPIRONOLACTONE 50 MG TABLET 200 MG PO (09:21)
[2021-07-27] MEDS: PANTOPRAZOLE 40 MG TABLET PO (09:21)
[2021-07-27] MEDS: METOPROLOL TARTRATE 25 MG TABLET PO ×2 (09:21→21:16)
[2021-07-27] MEDS: SACCHAROMYCES BOULARDII 250 MG CAPSULE PO ×2 (09:21→17:18)
[2021-07-27] MEDS: FINASTERIDE 5 MG TABLET PO (09:21)
[2021-07-27] MEDS: CHOLECALCIFEROL 1,000 UNITS TABLET 2000 UNITS PO (09:21)
[2021-07-27] MEDS: PSYLLIUM POWDER PACKET 1 PACKET PO (09:22)
[2021-07-27] MEDS: LORATADINE 10 MG TABLET PO (09:22)
[2021-07-27] MEDS: FUROSEMIDE INJ 100 MG/10 ML VIAL 60 MG IV PUSH ×2 (09:22→17:17)
[2021-07-27] MEDS: traMADol HCL (*CRX) 50 MG TABLET PO ×2 (09:36→23:01)
[2021-07-27] MEDS: methylPHENIDATE HCL (*CRX) 5 MG TABLET PO ×2 (10:00→17:22)
[2021-07-27] MEDS: BACITRACIN OINTMENT 15 GM TUBE 1 APPLIC TOPICAL (10:22)
[2021-07-27] MEDS: HYDROcodone/acetaminophen (*CRX) 5-325 MG TABLET 1 TAB PO ×2 (17:25→22:34)
[2021-07-27] MEDS: DOCUSATE SODIUM 100 MG CAPSULE PO (21:16)
[2021-07-27] MEDS: MELATONIN 5 MG TABLET PO (21:17)
[2021-07-27] MEDS: AMIODARONE 150 MG/D5W 100 ML 150 MG/100 ML BAG 600 MG (22:00)
[2021-07-27] MEDS: AMIODARONE 150 MG/D5W 100 ML 150 MG/100 ML BAG 600 MG IV CONT (22:08)
[2021-07-27] MEDS: AMIODARONE 360 MG/D5W 200 ML 360 MG/200 ML BAG 33.33 MG IV CONT (22:30)
[2021-07-28] VITALS (27 sets, daily range): BP systolic 114–135; BP diastolic 51–85; PULSE 67–107; RESP 18–22; TEMP 35.6–36.6; O2SAT 91–96
[2021-07-28] MEDS: IPRATROPIUM BR 0.02% INH SOLN 0.5 MG/2.5 ML VIAL INHALATION ×4 (02:44→19:10)
[2021-07-28] MEDS: AMIODARONE 360 MG/D5W 200 ML 360 MG/200 ML BAG 16.67 MG IV CONT (05:00)
[2021-07-28 05:17] LABS: Estimated CRCL calculation 101 ml/min; Estimated Glomerular Filt Rate > 60
[2021-07-28 05:21] LABS: INR 1.4
[2021-07-28] MEDS: CENTRAL LINE FLUSH 10 ML IV PUSH ×3 (06:00→22:35)
[2021-07-28] MEDS: SPIRONOLACTONE 50 MG TABLET 200 MG PO (08:37)
[2021-07-28] MEDS: PSYLLIUM POWDER PACKET 1 PACKET PO (08:38)
[2021-07-28] MEDS: METOPROLOL TARTRATE 25 MG TABLET PO ×2 (08:38→22:33)
[2021-07-28] MEDS: SACCHAROMYCES BOULARDII 250 MG CAPSULE PO ×2 (08:38→18:10)
[2021-07-28] MEDS: PANTOPRAZOLE 40 MG TABLET PO (08:38)
[2021-07-28] MEDS: FUROSEMIDE INJ 100 MG/10 ML VIAL 60 MG IV PUSH ×2 (08:39→18:10)
[2021-07-28] MEDS: LORATADINE 10 MG TABLET PO (08:39)
[2021-07-28] MEDS: FLUTICASONE PROPIONATE 0.05% NA SPR 16 GM BTL (*BKC) 2 SPRAY NASAL (08:40)
[2021-07-28] MEDS: ESCITALOPRAM OXALATE 10 MG TABLET 20 MG PO (08:40)
[2021-07-28] MEDS: FINASTERIDE 5 MG TABLET PO (08:40)
[2021-07-28] MEDS: CHOLECALCIFEROL 1,000 UNITS TABLET 2000 UNITS PO (08:41)
[2021-07-28] MEDS: AZELASTINE HCL NASAL 0.1% 137 MCG/SPR 30 ML BTL 2 SPRAY NASAL (08:41)
[2021-07-28] MEDS: DOCUSATE SODIUM 100 MG CAPSULE PO ×2 (08:41→22:32)
[2021-07-28] MEDS: methylPHENIDATE HCL (*CRX) 5 MG TABLET PO ×2 (08:45→18:10)
[2021-07-28] MEDS: BACITRACIN OINTMENT 15 GM TUBE 1 APPLIC TOPICAL (08:49)
[2021-07-28] MEDS: BUDESONIDE RESPULE NEB 0.5 MG/2 ML AMP INHALATION ×2 (08:55→19:09)
--- NOTE | 2021-07-28 10:49 | PCNFU ---
Nutrition Follow-Up Complete: Pt current nutrition is heart healthy diet and fluid restriction Last recorded weight is 98.1 kg, stable. Bowel Motility: +BM 07/28 reported Labs Reviewed:hgb 10.9, hct 34.1, CO2 32, BUN 30, C-reactive protein 6.1, PT 17.0, Troponin I 0.106 Meds Noted: nexterone, budesonide, maxipime, colace, lexapro, proscar, lasix, claritin, ritalin, lopressor, protonix, metamucil, florastor, aldactone, vancomycin, vitamin D Skin: lower leg ulcer - venous stasis, right hip incision Additional Notes: Unable to visit with pt due to following COVID precautions. Current nutrition is a heart healthy diet with reported intake of 50%, 100% x2, 75%, and 80%. Pt appears to be tolerating current diet with adequate reported intake. Pt is on a 1500mL fluid restriction. Agree with diet orders at this time. No further nutritional interventions needed. Will monitor every 7 days.
--- NOTE | 2021-07-28 11:23 | PM.PNCARD ---
Progress Note: A&P Additional Plan 76-year-old patient with: Paroxysmal atrial fibrillation in the setting of COVID pneumonia. No other cardiac history that we are aware of. Echocardiogram during this hospitalization did not show any significant structural cardiac problems. He seems to have responded to amiodarone. I will transition him to an oral dosage at this time. I would hope and presume that he will not require long-term antiarrhythmic therapy. That being the case amiodarone is reasonable to continue since the expectation is it will be short term. Declan Parham MD [facility] Subjective Date/time seen: 07/28/21 11:23 Interval history: 76-year-old admitted for COVID. Was seen in consultation by Dr. Parham on July 07. This is for elevated troponins. We are now reconsulted because of atrial fibrillation Date of service 07/22/2021: Patient has had recurrent episodes of atrial fibrillation but with controlled ventricular response. Now in sinus rhythm on diltiazem. Had increased work of breathing yesterday and has been put on diuretics. Date of service 07/23/2021: He is having diego hemoptysis. Remains in sinus rhythm. No chest pain. Still short of breath Date of service 07/24/2021: Hemoptysis has resolved. He is not feeling very well today. He remains on BiPAP and persistently short of breath. Remains in sinus rhythm. Date of service 07/25/2021: Complains some right-sided chest pain today. It is pleuritic. He also is hungry and wants to eat. Seems more comfortable on BiPAP. Status post thoracentesis with 1 L removed yesterday Date of service 05/27/2022: Patient redeveloped atrial fibrillation last evening. My partner on-call started an amiodarone IV infusion. Normal sinus rhythm at this time. Continues to be hospitalized for COVID pneumonia requiring high-flow oxygen. He was unaware of his atrial fibrillation in the way of palpitations or any other symptomatology. Only complaints at this time is some mild central abdominal pain. Exam Narrative: appears to be in distress Const: General: awake, ill appearing and uncomfortable HENMT: Head: normal to inspection Mouth: Yes moist mucous membranes Eyes: Sclera: sclerae normal Pupils: Equal, round and reactive pupils present Neck: Neck: supple and no JVD Resp: Auscultation: rhonchi (Central rhonchi) and diminished lung sounds Other: Breath sounds are diminished bilaterally a few rhonchi are audible no rales no wheezing Cardio: Rate: regular rate Rhythm: regular rhythm Heart sounds: no murmurs Peripheral pulses: Peripheral pulses 2+ throughout Other: No significant murmur or gallop GI: Auscultation: normal bowel sounds Skin: General skin exam: normal color Neuro: Cranial nerves: Yes Equal, round and reactive pupils present and Yes Normal hearing present Cognition (Neuro): normal cognition Extrem: Other: Mild chronic appearing edema of the 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 Vital Signs: Vital Signs - 24 hr 07/27/21 12:00 07/27/21 13:26 07/27/21 14:00 Temperature 36.9 C Pulse Rate 81 84 76 Respiratory Rate 20 18 Blood Pressure 134/62 Pulse Oximetry 93 07/27/21 16:00 07/27/21 18:00 07/27/21 20:00 Temperature 37.0 C 36.8 C Pulse Rate 81 90 146 H Respiratory Rate 20 24 H Blood Pressure 132/52 L 141/71 H Pulse Oximetry 93 90 07/27/21 20:56 07/27/21 21:10 07/27/21 21:16 Temperature Pulse Rate 120 H 126 H 141 H Respiratory Rate 16 Blood Pressure Pulse Oximetry 92 07/27/21 22:00 07/27/21 22:08 07/27/21 22:30 Temperature Pulse Rate 147 H 148 H 121 H Respiratory Rate Blood Pressure 141/71 H Pulse Oximetry 07/27/21 23:51 07/28/21 00:00 07/28/21 02:00 Temperature 36.7 C Pulse Rate 112 H 107 H 96 Respiratory Rate 24 H Blood Pressure 129/72 Pulse Oximetry 95 07/28/21 02:45 07/28/21 02:54
[2021-07-28] MEDS: AMIODARONE HCL 200 MG TABLET PO ×2 (12:30→22:58)
[2021-07-28] MEDS: HYDROcodone/acetaminophen (*CRX) 5-325 MG TABLET 1 TAB PO ×2 (15:13→22:37)
[2021-07-28] MEDS: MELATONIN 5 MG TABLET PO (22:33)
[2021-07-29] VITALS (28 sets, daily range): BP systolic 106–140; BP diastolic 50–64; PULSE 76–134; RESP 18–24; TEMP 35.6–36.9; O2SAT 92–99
[2021-07-29] MEDS: IPRATROPIUM BR 0.02% INH SOLN 0.5 MG/2.5 ML VIAL INHALATION ×4 (01:27→20:28)
[2021-07-29] MEDS: CENTRAL LINE FLUSH 10 ML IV PUSH ×3 (05:38→21:21)
[2021-07-29 06:20] LABS: Vancomycin Trough 22.6 ug/mL (10.0-20.0)
[2021-07-29] MEDS: SPIRONOLACTONE 50 MG TABLET 200 MG PO (08:53)
[2021-07-29] MEDS: SACCHAROMYCES BOULARDII 250 MG CAPSULE PO ×2 (08:53→17:56)
[2021-07-29] MEDS: TOLNAFTATE 1% POWDER 45 GM BTL 1 APPLIC TOPICAL ×2 (08:53→21:21)
[2021-07-29] MEDS: methylPHENIDATE HCL (*CRX) 5 MG TABLET PO ×2 (08:54→17:58)
[2021-07-29] MEDS: METOPROLOL TARTRATE 25 MG TABLET PO ×2 (08:54→21:16)
[2021-07-29] MEDS: PANTOPRAZOLE 40 MG TABLET PO (08:54)
[2021-07-29] MEDS: FLUTICASONE PROPIONATE 0.05% NA SPR 16 GM BTL (*BKC) 2 SPRAY NASAL (08:55)
[2021-07-29] MEDS: FUROSEMIDE INJ 100 MG/10 ML VIAL 60 MG IV PUSH ×2 (08:55→17:56)
[2021-07-29] MEDS: LORATADINE 10 MG TABLET PO (08:55)
[2021-07-29] MEDS: CHOLECALCIFEROL 1,000 UNITS TABLET 2000 UNITS PO (08:56)
[2021-07-29] MEDS: ESCITALOPRAM OXALATE 10 MG TABLET 20 MG PO (08:56)
[2021-07-29] MEDS: DOCUSATE SODIUM 100 MG CAPSULE PO ×2 (08:56→21:18)
[2021-07-29] MEDS: FINASTERIDE 5 MG TABLET PO (08:56)
[2021-07-29] MEDS: AZELASTINE HCL NASAL 0.1% 137 MCG/SPR 30 ML BTL 2 SPRAY NASAL (08:58)
[2021-07-29] MEDS: AMIODARONE HCL 200 MG TABLET PO (09:19)
--- NOTE | 2021-07-29 09:21 | PC.NURSE ---
Laura Lazo notified of pt return to atrial fib sustained rate 130's, okay to give Amiodarone at this time, Laura will come to see patient at bedside. RN to continue to monitor.
[2021-07-29] MEDS: BUDESONIDE RESPULE NEB 0.5 MG/2 ML AMP INHALATION ×2 (09:46→20:28)
--- NOTE | 2021-07-29 12:02 | PM.PNCARD ---
Progress Note: A&P Assessment and Plan (1) Intermittent atrial fibrillation: Code(s): I48.0 - Paroxysmal atrial fibrillation Status: Acute Assessment and Plan: Continue IV amiodarone for now along with metoprolol. (2) Pneumonia due to COVID-19 virus: Code(s): U07.1 - COVID-19; J12.82 - Pneumonia due to coronavirus disease 2019 Status: Acute Assessment and Plan: Management Per hospitalist and pulmonology (3) Volume overload: Code(s): E87.70 - Fluid overload, unspecified Status: Acute Assessment and Plan: Diuresis as needed (4) Cirrhosis: Code(s): K74.60 - Unspecified cirrhosis of liver Status: Acute (5) Hemoptysis: Code(s): R04.2 - Hemoptysis Status: Acute Assessment and Plan: Management of pulmonary embolism as per primary team and pulmonology (6) Pleural effusion: Code(s): J90 - Pleural effusion, not elsewhere classified Status: Acute Assessment and Plan: Status post thoracentesis (7) Chest pain: Code(s): R07.9 - Chest pain, unspecified Status: Acute Assessment and Plan: Pleuritic in nature. Less likely cardiac. Echo showed normal LV systolic function. Subjective Date/time seen: 07/29/21 12:02 Interval history: 76-year-old admitted for COVID. Was seen in consultation by Dr. Parham on July 07. This is for elevated troponins. We are now reconsulted because of atrial fibrillation Date of service 07/22/2021: Patient has had recurrent episodes of atrial fibrillation but with controlled ventricular response. Now in sinus rhythm on diltiazem. Had increased work of breathing yesterday and has been put on diuretics. Date of service 07/23/2021: He is having diego hemoptysis. Remains in sinus rhythm. No chest pain. Still short of breath Date of service 07/24/2021: Hemoptysis has resolved. He is not feeling very well today. He remains on BiPAP and persistently short of breath. Remains in sinus rhythm. Date of service 07/25/2021: Complains some right-sided chest pain today. It is pleuritic. He also is hungry and wants to eat. Seems more comfortable on BiPAP. Status post thoracentesis with 1 L removed yesterday Date of service 05/27/2022: Patient redeveloped atrial fibrillation last evening. My partner on-call started an amiodarone IV infusion. Normal sinus rhythm at this time. Continues to be hospitalized for COVID pneumonia requiring high-flow oxygen. He was unaware of his atrial fibrillation in the way of palpitations or any other symptomatology. Only complaints at this time is some mild central abdominal pain. 07/29/2021-patient remains in atrial fibrillation with RVR with heart rates in 100s. Patient continues to require high-flow oxygen. No chest pain. Exam Narrative: appears to be in distress, on high-flow oxygen Const: General: awake, ill appearing and uncomfortable HENMT: Head: normal to inspection Mouth: Yes moist mucous membranes Eyes: Sclera: sclerae normal Pupils: Equal, round and reactive pupils present Neck: Neck: supple and no JVD Resp: Auscultation: rhonchi (Central rhonchi) and diminished lung sounds Other: Breath sounds are diminished bilaterally with scattered rhonchi Cardio: Rate: regular rate Rhythm: regular rhythm Heart sounds: no murmurs Peripheral pulses: Peripheral pulses 2+ throughout Other: Irregularly irregular rhythm, tachycardia GI: Auscultation: normal bowel sounds Skin: General skin exam: normal color Neuro: Cranial nerves: Yes Equal, round and reactive pupils present and Yes Normal hearing present Cognition (Neuro): normal cognition Extrem: Other: Mild chronic appearing edema of the 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
--- NOTE | 2021-07-29 12:03 | PM.PNCARD ---
Progress Note: A&P Assessment and Plan (1) Intermittent atrial fibrillation: Code(s): I48.0 - Paroxysmal atrial fibrillation Status: Acute Assessment and Plan: Continue metoprolol. Was on heparin for pulmonary embolism (2) Pneumonia due to COVID-19 virus: Code(s): U07.1 - COVID-19; J12.82 - Pneumonia due to coronavirus disease 2019 Status: Acute Assessment and Plan: Per hospitalist (3) Volume overload: Code(s): E87.70 - Fluid overload, unspecified Status: Acute Assessment and Plan: Continue IV diuretics. Repeat echocardiogram showed hyperdynamic left ventricular systolic function with an estimated EF of greater than 70%. He does have grade 2 diastolic dysfunction. Mild JENNIFER. Moderate pulmonary hypertension, estimated PASP 50 mmHg. Continue IV diuretics but will lower then down to furosemide 40 mg IV once daily. Replace potassium 40 mg p.o. x1. (4) Cirrhosis: Code(s): K74.60 - Unspecified cirrhosis of liver Status: Acute (5) Hemoptysis: Code(s): R04.2 - Hemoptysis Status: Acute Assessment and Plan: Still coughing up blood when BiPAP is off (6) Pleural effusion: Code(s): J90 - Pleural effusion, not elsewhere classified Status: Acute Assessment and Plan: Thoracentesis yesterday removed 1 L fluid (7) Chest pain: Code(s): R07.9 - Chest pain, unspecified Status: Acute Assessment and Plan: Pleuritic in nature. Unlikely cardiac but will check an EKG and troponin now. Additional Plan 76-year-old patient with: Paroxysmal atrial fibrillation in the setting of COVID pneumonia. No other cardiac history that we are aware of. Echocardiogram during this hospitalization did not show any significant structural cardiac problems. He seems to have responded to amiodarone. I will transition him to an oral dosage at this time. I would hope and presume that he will not require long-term antiarrhythmic therapy. That being the case amiodarone is reasonable to continue since the expectation is it will be short term. Declan Parham MD [facility] Subjective Date/time seen: 07/29/21 12:03 Interval history: 76-year-old admitted for COVID. Was seen in consultation by Dr. Parham on July 07. This is for elevated troponins. We are now reconsulted because of atrial fibrillation Date of service 07/22/2021: Patient has had recurrent episodes of atrial fibrillation but with controlled ventricular response. Now in sinus rhythm on diltiazem. Had increased work of breathing yesterday and has been put on diuretics. Date of service 07/23/2021: He is having diego hemoptysis. Remains in sinus rhythm. No chest pain. Still short of breath Date of service 07/24/2021: Hemoptysis has resolved. He is not feeling very well today. He remains on BiPAP and persistently short of breath. Remains in sinus rhythm. Date of service 07/25/2021: Complains some right-sided chest pain today. It is pleuritic. He also is hungry and wants to eat. Seems more comfortable on BiPAP. Status post thoracentesis with 1 L removed yesterday Date of service 05/27/2022: Patient redeveloped atrial fibrillation last evening. My partner on-call started an amiodarone IV infusion. Normal sinus rhythm at this time. Continues to be hospitalized for COVID pneumonia requiring high-flow oxygen. He was unaware of his atrial fibrillation in the way of palpitations or any other symptomatology. Only complaints at this time is some mild central abdominal pain. Review of Systems Constitutional: Constitutional: Denies excessive sweating, Denies headache(s) and Reports weakness Eyes: Eyes: Reports no additional eye complaints ENT: Reports Normal hearing present and Denies headache(s) Cardiovascular: Cardiovascular: Denies chest pain and Reports dyspnea Respiratory: Respiratory: Reports as per HPI, Reports cough, Reports hemoptysis and Reports dyspnea
[2021-07-29 12:10] LABS: Anti Cyclic Citrullinated Pept <16 Units (<20)
[2021-07-29 12:59] LABS: ANA Cascade Screen Negative (Negative)
[2021-07-29] MEDS: HYDROcodone/acetaminophen (*CRX) 5-325 MG TABLET 1 TAB PO ×2 (15:16→22:39)
--- NOTE | 2021-07-29 16:44 | PM.IMPN ---
Progress Note: A&P Assessment and Plan (1) Atrial fibrillation with RVR: Code(s): I48.91 - Unspecified atrial fibrillation Status: Acute Assessment and Plan: Looks like 07/20/2021 flipped into AFib with RVR which was managed with Cardizem drip back to sinus rhythm later that day [age] again into AFib with RVR 07/21/2021 was start Cardizem drip again Cardiology will be consulted check labs will also check TSH (2) COVID-19: Code(s): U07.1 - COVID-19 Status: Acute (3) Pneumonia due to COVID-19 virus: Code(s): U07.1 - COVID-19; J12.82 - Pneumonia due to coronavirus disease 2018 Status: Acute Assessment and Plan: Resolved Tested positive on 07/04/2021 Saturation 84% upon arrival Supplemental O2 ordered was able to wean to room air, wean to maintain saturations greater than 90% CTA shows no PE, trace pleural effusions, emphysema, cirrhosis with portal hypertension, splenomegaly, small amount of ascitesStart remdesivir and dexamethasone day 5, completed Anti-tussives for c [facility] and [facility] therapyMonitor fluid status Albuterol scheduled Inflammatory markers: D-dimer 2.70, LDH 726, CRP 11.1, Ferritin 515 07/09/21 Isolation for droplet and contact precautions Lovenox 40 mg daily for DVT prophylaxis Repeat chest xray: Patchy bilateral airspace disease, compatible with pneumonia. (07/11/21) 07/18/2021 - on room air, SpO2 95%, HR 60-70, RR 16-20. 07/21/2021 now currently on high flow oxygen chest xray reviwed. unchanged opacities likely pneumonia versus pulmonary edema (4) Hepatitis C: Code(s): B19.20 - Unspecified viral hepatitis C without hepatic coma Status: Acute Assessment and Plan: CHRONIC. TREATED. etiology is hepatitis C and alcohol abuse. followed by hepatology at [facility] , Dr. Jyotsna Frank. this was treated at least 15 years ago and is inactive (5) Elevated d-dimer: Code(s): R79.89 - Other specified abnormal findings of blood chemistry Status: Acute Assessment and Plan: D-dimer 9.64, trending down 2.70 07/09/21, 3.[address] negative for PE Probably related to COVID Lovenox started 07/07/2021 DVT US - showed no DVTS, clear (6) Sepsis: Code(s): A41.9 - Sepsis, unspecified organism Status: Acute Assessment and Plan: Resolved Patient meets criteria with elevated white blood cell count of 19.2, lactic acid of 2.6, episodes of hypotension Repeat lactic is 2.1 Fluid resuscitation Blood cultures NGTD Antibiotics started Source of infection pneumonia, UTI Trend white blood cell count Tailor antibiotics as indicated (7) Ascites: Code(s): R18.8 - Other ascites Status: Acute Assessment and Plan: US paracentesis completed on Jul.15 with 3 L removed and started on spironolactone. Found on the CT In total 5250 off Albumin was given Needs a PRN order for outpatient paracentesis at discharge - will need to F/U with . fluid restriction and restrict sodium as well. avoid IV fluids which contribute to ascites need to follow up with [facility] keep weight controlled by keeping fluid retention down. TEDS on BLE for discharge instructions elevate scrotum. Q6 h IV albumin and IV Lasix to mobilize 3rd space fluid stay on a maintenance dose of Aldactone, which may improve his potassium levels. Paracentesis attempted to with no ascites noted (8) Diastolic CHF: Code(s): I50.30 - Unspecified diastolic (congestive) heart failure Status: Acute (9) Urinary retention: Code(s): R33.9 - Retention of urine, unspecified Status: Acute Assessment and Plan: States that he does not feel that he is fully empting Post residual void, bladder scan PRN Continue finasteride Follow urine output Urine catheter in place (10) Fracture of right hip requiring operative repair: Code(s): S72.001A - Fracture of unspecified part of neck of right f
[2021-07-29 17:15] LABS: LDH Pleural Fluid 45 U/L; Total Protein Pleural Fluid <3.0 g/dL
[2021-07-29] MEDS: MELATONIN 5 MG TABLET PO (21:16)
[2021-07-30] VITALS (19 sets, daily range): BP systolic 115–127; BP diastolic 53–65; PULSE 70–88; RESP 18–24; TEMP 36.6–37.4; O2SAT 33–100
[2021-07-30] MEDS: IPRATROPIUM BR 0.02% INH SOLN 0.5 MG/2.5 ML VIAL INHALATION ×4 (02:30→20:35)
[2021-07-30] MEDS: AMIODARONE HCL 200 MG TABLET PO ×2 (06:18→18:37)
[2021-07-30] MEDS: CENTRAL LINE FLUSH 10 ML IV PUSH ×3 (07:49→23:48)
--- NOTE | 2021-07-30 07:52 | PC.NURSE ---
SCHEDULED MEDICATION FOR THE ABOVE NAMED PATIENT AMNIODORINE 200MG ORAL EVERY 12HRS SCHEDULED TO ADMINISTER ON 07/29/2021 @ 2325 WAS MISSED/OVERLOOKED DUE TO IRREGULAR TIMING. NOTICED MEDICATION WAS MISSED @6AM ON 07/29/2021. PHARMACY INFORMED AND TIMING FOR MEDICATION ADMINISTRATION WAS CHANGED TO 6AM AND 6PM. CHANGE TO TAKE EFFECT @ 6AM 07/30/21. MEDICATION WAS GIVEN ORDERED TO PATIENT SHORTLY AFTER 6AM TODAY 07/30. COMPOSITION WORKER NADIA INFORMED AND DIRECTED ME TO CALL THE DOUGHMA[employer]ER. DR. HOLMAN WAS PAGED @ APPROXIMATELY 7AM AND RESPONDED BACK WITHIN [address]. [address] HOLMAN THAT THE PATIENT MISSED HIS EVENING DOSE OF AMNIODORNE 200MG AND THAT THE PATIENT DID NOT EXPERIENCE ANY CHANGE IN HEART RHYTHM OR RATE AND HE SLEPT WELL AND UNINTERUPTED THROUGHOUT THE NIGHT. DR. HOLMAN SAID THAT IT WAS OK TO ADMINISTER THE MEDICATION PER PHARMACYS CHANGE. DAY SHIFT RN MADE AWARE OF MEDICATION TIME CHANGE.
[2021-07-30] MEDS: BUDESONIDE RESPULE NEB 0.5 MG/2 ML AMP INHALATION ×2 (08:33→20:39)
[2021-07-30] MEDS: ESCITALOPRAM OXALATE 10 MG TABLET 20 MG PO (09:26)
[2021-07-30] MEDS: CHOLECALCIFEROL 1,000 UNITS TABLET 2000 UNITS PO (09:26)
[2021-07-30] MEDS: PANTOPRAZOLE 40 MG TABLET PO (09:27)
[2021-07-30] MEDS: SPIRONOLACTONE 50 MG TABLET 200 MG PO (09:27)
[2021-07-30] MEDS: SACCHAROMYCES BOULARDII 250 MG CAPSULE PO ×2 (09:27→18:37)
[2021-07-30] MEDS: LORATADINE 10 MG TABLET PO (09:27)
[2021-07-30] MEDS: METOPROLOL TARTRATE 25 MG TABLET PO ×2 (09:27→21:00)
[2021-07-30] MEDS: FINASTERIDE 5 MG TABLET PO (09:28)
[2021-07-30] MEDS: FUROSEMIDE INJ 100 MG/10 ML VIAL 60 MG IV PUSH ×2 (09:28→18:35)
[2021-07-30] MEDS: BACITRACIN OINTMENT 15 GM TUBE 1 APPLIC TOPICAL (09:29)
[2021-07-30] MEDS: TOLNAFTATE 1% POWDER 45 GM BTL 1 APPLIC TOPICAL ×2 (09:30→23:48)
[2021-07-30] MEDS: methylPHENIDATE HCL (*CRX) 5 MG TABLET PO ×2 (09:41→18:36)
[2021-07-30 10:20] LABS: ANCA Screen Negative (Negative)
[2021-07-30] MEDS: HYDROcodone/acetaminophen (*CRX) 5-325 MG TABLET 1 TAB PO (13:05)
[2021-07-30 13:32] LABS: Anion Gap 11 mmol/L (8-16); Blood Urea Nitrogen 15 mg/dL (9-20); Calcium 7.8 mg/dL (8.4-10.2); Carbon Dioxide 30 mmol/L (22-30); Chloride 92 mmol/L (98-107); Estimated CRCL calculation 88 ml/min; Estimated Glomerular Filt Rate > 60; Glucose 122 mg/dL (65-110); Potassium 2.6 mmol/L (3.4-5.0); Sodium 133 mmol/L (137-145)
[2021-07-30] MEDS: traMADol HCL (*CRX) 50 MG TABLET PO (15:41)
[2021-07-30 18:59] LABS: Albumin Pleural Fluid 1.5 g/dL
[2021-07-30 20:14] LABS: Troponin I < 0.012 ng/mL (0.000-0.034)
[2021-07-30] MEDS: DOCUSATE SODIUM 100 MG CAPSULE PO (21:00)
[2021-07-30] MEDS: MELATONIN 5 MG TABLET PO (21:00)
[2021-07-30] MEDS: POTASSIUM CHLORIDE 20 MEQ PACKET (FOR LIQUID) 40 MEQ PO (21:12)
[2021-07-31] VITALS (22 sets, daily range): BP systolic 99–130; BP diastolic 50–63; PULSE 59–94; RESP 16–20; TEMP 36.1–37; O2SAT 91–98
[2021-07-31 00:12] LABS: Vancomycin Trough 18.4 ug/mL (10.0-20.0)
[2021-07-31] MEDS: IPRATROPIUM BR 0.02% INH SOLN 0.5 MG/2.5 ML VIAL INHALATION ×4 (02:59→21:05)
[2021-07-31 05:26] LABS: Anion Gap 6 mmol/L (8-16); Blood Urea Nitrogen 16 mg/dL (9-20); Calcium 8.5 mg/dL (8.4-10.2); Carbon Dioxide 34 mmol/L (22-30); Chloride 92 mmol/L (98-107); Estimated CRCL calculation 69 ml/min; Estimated Glomerular Filt Rate > 60; Glucose 96 mg/dL (65-110); Sodium 132 mmol/L (137-145)
[2021-07-31] MEDS: AMIODARONE HCL 200 MG TABLET PO ×2 (05:38→18:33)
[2021-07-31] MEDS: CENTRAL LINE FLUSH 10 ML IV PUSH ×3 (05:39→21:02)
[2021-07-31] MEDS: BUDESONIDE RESPULE NEB 0.5 MG/2 ML AMP INHALATION ×2 (08:36→21:04)
[2021-07-31] MEDS: FUROSEMIDE INJ 100 MG/10 ML VIAL 60 MG IV PUSH ×2 (09:44→18:30)
[2021-07-31] MEDS: PANTOPRAZOLE 40 MG TABLET PO (09:45)
[2021-07-31] MEDS: SACCHAROMYCES BOULARDII 250 MG CAPSULE PO ×2 (09:45→18:32)
[2021-07-31] MEDS: LORATADINE 10 MG TABLET PO (09:45)
[2021-07-31] MEDS: ESCITALOPRAM OXALATE 10 MG TABLET 20 MG PO (09:45)
[2021-07-31] MEDS: methocarbamoL 500 MG TABLET PO (09:45)
[2021-07-31] MEDS: METOPROLOL TARTRATE 25 MG TABLET PO ×2 (09:46→21:00)
[2021-07-31] MEDS: FINASTERIDE 5 MG TABLET PO (09:47)
[2021-07-31] MEDS: BACITRACIN OINTMENT 15 GM TUBE 1 APPLIC TOPICAL (09:47)
[2021-07-31] MEDS: TOLNAFTATE 1% POWDER 45 GM BTL 1 APPLIC TOPICAL ×2 (09:49→20:59)
[2021-07-31] MEDS: SPIRONOLACTONE 50 MG TABLET 200 MG PO (09:50)
[2021-07-31] MEDS: methylPHENIDATE HCL (*CRX) 5 MG TABLET PO ×2 (10:07→18:31)
--- NOTE | 2021-07-31 14:06 | P.PNIM_ITS ---
Progress Note: A&P Assessment and Plan (1) Atrial fibrillation with RVR: Code(s): I48.91 - Unspecified atrial fibrillation Status: Acute (2) COVID-19: Code(s): U07.1 - COVID-19 Status: Acute (3) Pneumonia due to COVID-19 virus: Code(s): U07.1 - COVID-19; J12.82 - Pneumonia due to coronavirus disease 2018 Status: Acute Assessment and Plan: Resolved Tested positive on 07/04/2021 Saturation 84% upon arrival Supplemental O2 ordered was able to wean to room air, wean to maintain saturations greater than 90% CTA shows no PE, trace pleural effusions, emphysema, cirrhosis with portal hypertension, splenomegaly, small amount of ascitesStart remdesivir and dexamethasone day 5, completed Anti-tussives for c IS and Vahid therapyMonitor fluid status Albuterol scheduled Inflammatory markers: D-dimer 2.70, LDH 726, CRP 11.1, Ferritin 515 07/09/21 Isolation for droplet and contact precautions Lovenox 40 mg daily for DVT prophylaxis Repeat chest xray: Patchy bilateral airspace disease, compatible with pneumonia. (07/11/21) 07/18/2021 - on room air, SpO2 95%, HR 60-70, RR 16-20. 07/21/2021 now currently on high flow oxygen chest xray reviwed. unchanged opacities likely pneumonia versus pulmonary edema (4) Hepatitis C: Code(s): B19.20 - Unspecified viral hepatitis C without hepatic coma Status: Acute Assessment and Plan: CHRONIC. TREATED. etiology is hepatitis C and alcohol abuse. followed by hepatology at [facility] , Dr. Jyotsna Smith. this was treated at least 15 years ago and is inactive (5) Elevated d-dimer: Code(s): R79.89 - Other specified abnormal findings of blood chemistry Status: Acute Assessment and Plan: D-dimer 9.64, trending down 2.70 07/09/21, 3.[address] negative for PE Probably related to COVID Lovenox started 07/07/2021 DVT US - showed no DVTS, clear (6) Sepsis: Code(s): A41.9 - Sepsis, unspecified organism Status: Acute Assessment and Plan: Resolved Patient meets criteria with elevated white blood cell count of 19.2, lactic acid of 2.6, episodes of hypotension Repeat lactic is 2.1 Fluid resuscitation Blood cultures NGTD Antibiotics started Source of infection pneumonia, UTI Trend white blood cell count Tailor antibiotics as indicated (7) Ascites: Code(s): R18.8 - Other ascites Status: Acute Assessment and Plan: US paracentesis completed on Jul.15 with 3 L removed and started on spironolactone. Found on the CT In total 5250 off Albumin was given Needs a PRN order for outpatient paracentesis at discharge - will need to F/U with . fluid restriction and restrict sodium as well. avoid IV fluids which contribute to ascites need to follow up with [facility] keep weight controlled by keeping fluid retention down. TEDS on BLE for discharge instructions elevate scrotum. Q6 h IV albumin and IV Lasix to mobilize 3rd space fluid stay on a maintenance dose of Aldactone, which may improve his potassium levels. Paracentesis attempted to with no ascites noted (8) Diastolic CHF: Code(s): I50.30 - Unspecified diastolic (congestive) heart failure Status: Acute (9) Urinary retention: Code(s): R33.9 - Retention of urine, unspecified Status: Acute Assessment and Plan: States that he does not feel that he is fully empting Post residual void, bladder scan PRN Continue finasteride Follow urine output Urine catheter in
--- NOTE | 2021-07-31 14:36 | PM.PNCARD ---
Progress Note: A&P Assessment and Plan (1) Intermittent atrial fibrillation: Code(s): I48.0 - Paroxysmal atrial fibrillation Status: Acute Assessment and Plan: Now back in sinus rhythm. Continue oral amiodarone for now along with metoprolol. Currently not on any systemic anticoagulation. Continue to monitor on telemetry for recurrence of AFib. If he does have recurrence AFib will need to initiate anticoagulation. (2) Pneumonia due to COVID-19 virus: Code(s): U07.1 - COVID-19; J12.82 - Pneumonia due to coronavirus disease 2019 Status: Acute Assessment and Plan: Management Per hospitalist and pulmonology (3) Volume overload: Code(s): E87.70 - Fluid overload, unspecified Status: Acute Assessment and Plan: Diuresis as needed (4) Cirrhosis: Code(s): K74.60 - Unspecified cirrhosis of liver Status: Acute (5) Hemoptysis: Code(s): R04.2 - Hemoptysis Status: Acute Assessment and Plan: Resolved. (6) Pleural effusion: Code(s): J90 - Pleural effusion, not elsewhere classified Status: Acute Assessment and Plan: Status post thoracentesis (7) Chest pain: Code(s): R07.9 - Chest pain, unspecified Status: Acute Assessment and Plan: Pleuritic in nature. Less likely cardiac. Echo showed normal LV systolic function. Subjective Date/time seen: 07/31/21 14:3 Cardiology follow-up for atrial fibrillation feeling tired today but overall feels good. He is making slow progress. Now on 4 L of oxygen per nasal cannula. He is back in sinus rhythm today. Denies any chest pain, palpitations. Review of Systems Review of Systems: All systems reviewed & are unremarkable except as noted in HPI and below Exam Const: General: comfortable and no acute distress Other: Older gentleman lying in bed resting comfortably. HENMT: Head: normal to inspection Ears: hearing grossly normal bilaterally Face and sinus: normal facial exam Mouth: Yes Normal oral and palatal mucosa present Eyes: General: appearance normal, both eyes and all related structures Pupils: Equal, round and reactive pupils present Neck: Neck: normal visual inspection and no JVD Resp: Effort & Inspection: normal respiratory effort Auscultation: no rales, no rhonchi and no wheezes Cardio: Rate: regular rate Rhythm: regular rhythm Heart sounds: no murmurs GI: GI Palp: Yes Soft to palpation and Yes Ascites present Skin: General skin exam: normal color Neuro: General: patient oriented x3 Extrem: General: abnormal to inspection and edema (R pretibial and pedal ) Other: L BKA Psych: Appearance: grossly normal Mental Status: mental status grossly normal Speech and movement: Normal speech and movement present Objective Data Vital Signs Vital Signs: Vital Signs - 24 hr 07/30/21 16:00 07/30/21 20:00 07/30/21 20:50 Temperature 36.7 C 37.4 C Pulse Rate 77 88 88 Respiratory Rate 24 H 20 20 Blood Pressure 115/53 L 127/59 L Pulse Oximetry 94 98 98 07/30/21 21:00 07/30/21 22:00 07/31/21 00:00 Temperature 36.9 C Pulse Rate 88 84 88 Respiratory Rate 20 20 Blood Pressure 124/63 Pulse Oximetry 98 07/31/21 02:40 07/31/21 02:50 07/31/21 04:00 Temperature 36.6 C Pulse Rate 74 74 88 Respiratory Rate 20 20 20 Blood Pressure 130/54 L Pulse Oximetry 96 98 07/31/21 04:25 07/31/21 08:00 07/31/21 08:36 Temperature 36.6 C Pulse Rate 80 83 78 Respiratory Rate 20 18 20 Blood Pressure 129/58 L Pulse Oximetry 92 91 07/31/21 08:46 07/31/21 12:00 Temperature 36.9 C Pulse Rate 82 79 Respiratory Rate 20 18 Blood Pressure 108/50 L Pulse Oximetry 97 95 Intake/Output Intake/Output: Intake & Output 07/28/21 07/29/21 07/30/21 07/31/21 23:59 23:59 23:59 23:59 Intake Total 1820 1420 1080 540 Output Total 2850 1100 1900 2100 Balance -1030 292 -226 -0219 Meds/Results Medications: Active Medications
[2021-07-31] MEDS: HYDROcodone/acetaminophen (*CRX) 5-325 MG TABLET 1 TAB PO (18:31)
[2021-07-31] MEDS: POTASSIUM CHLORIDE 20 MEQ TABLET.ER 40 MEQ PO (18:32)
[2021-07-31] MEDS: MELATONIN 5 MG TABLET PO (21:01)
[2021-07-31] MEDS: traMADol HCL (*CRX) 50 MG TABLET PO (21:03)
[2021-08-01] VITALS (27 sets, daily range): BP systolic 118–135; BP diastolic 52–59; PULSE 64–92; RESP 16–24; TEMP 36.3–36.9; O2SAT 88–96
[2021-08-01] MEDS: IPRATROPIUM BR 0.02% INH SOLN 0.5 MG/2.5 ML VIAL INHALATION ×4 (03:03→20:10)
[2021-08-01 06:32] LABS: Anion Gap 7 mmol/L (8-16); Blood Urea Nitrogen 18 mg/dL (9-20); Calcium 8.5 mg/dL (8.4-10.2); Carbon Dioxide 32 mmol/L (22-30); Chloride 94 mmol/L (98-107); Estimated CRCL calculation 77 ml/min; Estimated Glomerular Filt Rate > 60; Glucose 93 mg/dL (65-110); Potassium 3.5 mmol/L (3.4-5.0); Sodium 133 mmol/L (137-145)
[2021-08-01] MEDS: AMIODARONE HCL 200 MG TABLET PO ×2 (06:34→17:54)
[2021-08-01] MEDS: HYDROcodone/acetaminophen (*CRX) 5-325 MG TABLET 1 TAB PO ×2 (06:35→22:28)
[2021-08-01] MEDS: CENTRAL LINE FLUSH 10 ML IV PUSH ×3 (06:37→22:33)
[2021-08-01] MEDS: POTASSIUM CHLORIDE 20 MEQ TABLET.ER 40 MEQ PO ×2 (08:26→17:53)
[2021-08-01] MEDS: SPIRONOLACTONE 50 MG TABLET 200 MG PO (08:40)
[2021-08-01] MEDS: FINASTERIDE 5 MG TABLET PO (08:40)
[2021-08-01] MEDS: CHOLECALCIFEROL 1,000 UNITS TABLET 2000 UNITS PO (08:41)
[2021-08-01] MEDS: LORATADINE 10 MG TABLET PO (08:41)
[2021-08-01] MEDS: methocarbamoL 500 MG TABLET PO (08:41)
[2021-08-01] MEDS: ESCITALOPRAM OXALATE 10 MG TABLET 20 MG PO (08:42)
[2021-08-01] MEDS: PANTOPRAZOLE 40 MG TABLET PO (08:43)
[2021-08-01] MEDS: DOCUSATE SODIUM 100 MG CAPSULE PO (08:44)
[2021-08-01] MEDS: SACCHAROMYCES BOULARDII 250 MG CAPSULE PO ×2 (08:44→17:54)
[2021-08-01] MEDS: FUROSEMIDE INJ 100 MG/10 ML VIAL 60 MG IV PUSH ×2 (08:45→17:53)
[2021-08-01] MEDS: PSYLLIUM POWDER PACKET 1 PACKET PO (08:46)
[2021-08-01] MEDS: AZELASTINE HCL NASAL 0.1% 137 MCG/SPR 30 ML BTL 2 SPRAY NASAL (08:51)
[2021-08-01] MEDS: FLUTICASONE PROPIONATE 0.05% NA SPR 16 GM BTL (*BKC) 2 SPRAY NASAL (08:51)
[2021-08-01] MEDS: BACITRACIN OINTMENT 15 GM TUBE 1 APPLIC TOPICAL (08:51)
[2021-08-01] MEDS: methylPHENIDATE HCL (*CRX) 5 MG TABLET PO ×2 (08:58→17:52)
[2021-08-01] MEDS: METOPROLOL TARTRATE 25 MG TABLET PO ×2 (09:01→22:31)
[2021-08-01] MEDS: TOLNAFTATE 1% POWDER 45 GM BTL 1 APPLIC TOPICAL ×2 (09:15→22:33)
[2021-08-01] MEDS: BUDESONIDE RESPULE NEB 0.5 MG/2 ML AMP INHALATION ×2 (10:21→20:10)
--- NOTE | 2021-08-01 11:54 | HOMEO2EVAL ---
Evaluation was performed at [facility] Home Oxygen Evaluation RC: Home Oxygen (O2) Evaluation Start: 08/01/21 10:34 Freq: ONCE Status: Active Protocol: RPE Activity Type Activity Date Activity User E-Sign Co-Sign Detail Recorded Client Recorded Date Recorded By Document 08/01/21 11:15 [email or web address] [email or web address] 08/01/21 11:54 DJO Document 08/01/21 11:20 [email or web address] [email or web address] 08/01/21 11:54 DJO Document 08/01/21 11:25 [email or web address] [email or web address] 08/01/21 11:54 DJO Document 08/01/21 11:35 [email or web address] [email or web address] 08/01/21 11:54 DJO 08/01/21 08/01/21 08/01/21 11:15 11:20 11:25 Home O2 Evaluation Test Phase Resting Resting Exercise Oxygen Delivery Room Air Nasal Cannula Nasal Cannula Oxygen Flow Rate (L/min) 1 1 Pulse Oximetry (90-100 %) 88 L 91 90 Pulse Rate (60-100 beats/min) 75 76 92 Treatment Charges O2 Evaluation - Inpatient 08/01/21 11:35 Home O2 Evaluation Test Phase Resting Oxygen Delivery Nasal Cannula Oxygen Flow Rate (L/min) 1 Pulse Oximetry (90-100 %) 92 Pulse Rate (60-100 beats/min) 78 Treatment Charges
--- NOTE | 2021-08-01 14:06 | PCRCNOTE ---
HOME O2 EVAL COMPLETE, 1 LITER AT REST AND WITH ACTIVITY. SET UP WITH IV & RESP CARE. PHONE NUMBER . TANK HAS BEEN DELIVERED TO PT'S ROOM FOR DISCHARGE.
[2021-08-01] MEDS: MELATONIN 5 MG TABLET PO (22:31)
[2021-08-02] VITALS (23 sets, daily range): BP systolic 107–138; BP diastolic 51–60; PULSE 67–96; RESP 16–22; TEMP 36–37.4; O2SAT 90–97
[2021-08-02] MEDS: IPRATROPIUM BR 0.02% INH SOLN 0.5 MG/2.5 ML VIAL INHALATION ×4 (01:50→20:37)
[2021-08-02] MEDS: HYDROcodone/acetaminophen (*CRX) 5-325 MG TABLET 1 TAB PO ×2 (04:56→21:58)
[2021-08-02] MEDS: AMIODARONE HCL 200 MG TABLET PO ×2 (05:59→18:22)
[2021-08-02] MEDS: CENTRAL LINE FLUSH 10 ML IV PUSH ×3 (06:01→21:55)
[2021-08-02 06:24] LABS: Vancomycin Trough 20.3 ug/mL (10.0-20.0)
[2021-08-02] MEDS: BUDESONIDE RESPULE NEB 0.5 MG/2 ML AMP INHALATION ×2 (08:26→20:38)
[2021-08-02] MEDS: TOLNAFTATE 1% POWDER 45 GM BTL 1 APPLIC TOPICAL ×2 (08:44→21:55)
[2021-08-02] MEDS: BACITRACIN OINTMENT 15 GM TUBE 1 APPLIC TOPICAL (08:44)
[2021-08-02] MEDS: FUROSEMIDE INJ 100 MG/10 ML VIAL 60 MG IV PUSH (08:45)
[2021-08-02] MEDS: methocarbamoL 500 MG TABLET PO (08:46)
[2021-08-02] MEDS: CHOLECALCIFEROL 1,000 UNITS TABLET 2000 UNITS PO (08:46)
[2021-08-02] MEDS: SPIRONOLACTONE 50 MG TABLET 200 MG PO (08:46)
[2021-08-02] MEDS: METOPROLOL TARTRATE 25 MG TABLET PO ×2 (08:46→21:54)
[2021-08-02] MEDS: POTASSIUM CHLORIDE 20 MEQ TABLET.ER 40 MEQ PO (08:47)
[2021-08-02] MEDS: SACCHAROMYCES BOULARDII 250 MG CAPSULE PO ×2 (08:48→18:22)
[2021-08-02] MEDS: ESCITALOPRAM OXALATE 10 MG TABLET 20 MG PO (08:48)
[2021-08-02] MEDS: PANTOPRAZOLE 40 MG TABLET PO (08:48)
[2021-08-02] MEDS: FINASTERIDE 5 MG TABLET PO (08:48)
[2021-08-02] MEDS: LORATADINE 10 MG TABLET PO (08:49)
[2021-08-02] MEDS: methylPHENIDATE HCL (*CRX) 5 MG TABLET PO ×2 (08:52→18:22)
--- NOTE | 2021-08-02 11:48 | PM.PNCARD ---
Progress Note: A&P Assessment and Plan (1) Intermittent atrial fibrillation: Code(s): I48.0 - Paroxysmal atrial fibrillation Status: Acute Assessment and Plan: Now back in sinus rhythm. Continue oral amiodarone for now along with metoprolol. Currently not on any systemic anticoagulation. Continue to monitor on telemetry for recurrence of AFib. If he does have recurrence AFib will need to initiate anticoagulation. (2) Pneumonia due to COVID-19 virus: Code(s): U07.1 - COVID-19; J12.82 - Pneumonia due to coronavirus disease 2019 Status: Acute Assessment and Plan: Management Per hospitalist and pulmonology (3) Volume overload: Code(s): E87.70 - Fluid overload, unspecified Status: Acute Assessment and Plan: Will reduce his furosemide down to 40 mg IV q.12 hours (4) Cirrhosis: Code(s): K74.60 - Unspecified cirrhosis of liver Status: Acute (5) Hemoptysis: Code(s): R04.2 - Hemoptysis Status: Acute Assessment and Plan: Resolved. (6) Pleural effusion: Code(s): J90 - Pleural effusion, not elsewhere classified Status: Acute Assessment and Plan: Status post thoracentesis (7) Chest pain: Code(s): R07.9 - Chest pain, unspecified Status: Acute Assessment and Plan: Pleuritic in nature. Less likely cardiac. Echo showed normal LV systolic function. Subjective Date/time seen: 08/02/21 11:48 Interval history: 76-year-old originally admitted for [facility] cardiology consultation because of atrial fibrillation and elevated troponins before Date of service 08/02/2021: Complains of some loose stools but from a cardiac perspective doing okay with any chest pain dyspnea is still present but stable Review of Systems Constitutional: Constitutional: Reports weakness ENT: Reports Normal hearing present Cardiovascular: Cardiovascular: Denies chest pain Respiratory: Respiratory: Reports dyspnea Gastrointestinal: Gastrointestinal: Reports diarrhea Exam Const: General: comfortable and no acute distress Orientation/consciousness: patient oriented x3 Other: Older gentleman lying in bed resting comfortably. HENMT: Head: normal to inspection Ears: hearing grossly normal bilaterally Face and sinus: normal facial exam Mouth: Yes Normal oral and palatal mucosa present Eyes: General: appearance normal, both eyes and all related structures Pupils: Equal, round and reactive pupils present Neck: Neck: normal visual inspection and no JVD Resp: Effort & Inspection: normal respiratory effort Auscultation: no rales, no rhonchi and no wheezes Cardio: Rate: regular rate Rhythm: regular rhythm Heart sounds: no murmurs Skin: General skin exam: normal color Neuro: General: patient oriented x3 Cranial nerves: Yes Equal, round and reactive pupils present Extrem: General: abnormal to inspection and edema (R pretibial and pedal ) Other: L BKA Psych: Appearance: grossly normal Mental Status: mental status grossly normal Speech and movement: Normal speech and movement present Objective Data Vital Signs Vital Signs: Vital Signs - 24 hr 08/01/21 12:00 08/01/21 14:00 08/01/21 14:16 Temperature 36.3 C L Pulse Rate 74 64 74 Respiratory Rate 20 18 Blood Pressure 118/55 L Pulse Oximetry 92 08/01/21 14:24 08/01/21 16:00 08/01/21 17:54 Temperature 36.9 C Pulse Rate 78 83 83 Respiratory Rate 18 24 H Blood Pressure 135/59 L Pulse Oximetry 95 08/01/21 18:00 08/01/21 19:43 08/01/21 20:00 Temperature 36.8 C Pulse Rate 83 88 88 Respiratory Rate 20 Blood Pressure 123/56 L Pulse Oximetry 90 08/01/21 22:00 08/01/21 22:31 08/02/21 00:00 Temperature 36.6 C Pulse Rate 91 85 78 Respiratory Rate 18 Blood Pressure 110/52 L Pulse Oximetry 90 08/02/21 01:47 08/02/21 02:00 08/02/21 04:00 Temperature 36.5 C Pulse Rate 82 73 68 Respiratory Rate 18 18 Blood Pressure
[2021-08-02 16:16] LABS: Amylase, Pleural Fluid 12 U/L
[2021-08-02] MEDS: FUROSEMIDE INJ 40 MG/4 ML VIAL IV PUSH (18:22)
[2021-08-02] MEDS: AZELASTINE HCL NASAL 0.1% 137 MCG/SPR 30 ML BTL 2 SPRAY NASAL (21:53)
[2021-08-02] MEDS: MELATONIN 5 MG TABLET PO (21:53)
[2021-08-03] VITALS (27 sets, daily range): BP systolic 112–127; BP diastolic 47–71; PULSE 70–90; RESP 16–81; TEMP 36.3–37.3; O2SAT 90–97
[2021-08-03] MEDS: IPRATROPIUM BR 0.02% INH SOLN 0.5 MG/2.5 ML VIAL INHALATION ×3 (02:15→20:38)
[2021-08-03 05:13] LABS: Anion Gap 4 mmol/L (8-16); Blood Urea Nitrogen 19 mg/dL (9-20); Calcium 8.9 mg/dL (8.4-10.2); Carbon Dioxide 33 mmol/L (22-30); Chloride 94 mmol/L (98-107); Estimated CRCL calculation 63 ml/min; Estimated Glomerular Filt Rate > 60; Glucose 107 mg/dL (65-110); Potassium 3.8 mmol/L (3.4-5.0); Sodium 131 mmol/L (137-145)
[2021-08-03] MEDS: AMIODARONE HCL 200 MG TABLET PO ×2 (06:07→17:48)
[2021-08-03] MEDS: CENTRAL LINE FLUSH 10 ML IV PUSH ×3 (06:08→20:28)
[2021-08-03] MEDS: SPIRONOLACTONE 50 MG TABLET 200 MG PO (08:19)
[2021-08-03] MEDS: PANTOPRAZOLE 40 MG TABLET PO (08:20)
[2021-08-03] MEDS: SACCHAROMYCES BOULARDII 250 MG CAPSULE PO ×2 (08:20→17:49)
[2021-08-03] MEDS: methocarbamoL 500 MG TABLET PO (08:20)
[2021-08-03] MEDS: CHOLECALCIFEROL 1,000 UNITS TABLET 2000 UNITS PO (08:20)
[2021-08-03] MEDS: LORATADINE 10 MG TABLET PO (08:21)
[2021-08-03] MEDS: ESCITALOPRAM OXALATE 10 MG TABLET 20 MG PO (08:21)
[2021-08-03] MEDS: FUROSEMIDE INJ 40 MG/4 ML VIAL IV PUSH ×2 (08:21→17:48)
[2021-08-03] MEDS: METOPROLOL TARTRATE 25 MG TABLET PO ×2 (08:21→20:28)
[2021-08-03] MEDS: POTASSIUM CHLORIDE 20 MEQ TABLET.ER 40 MEQ PO (08:21)
[2021-08-03] MEDS: BUDESONIDE RESPULE NEB 0.5 MG/2 ML AMP INHALATION ×2 (09:05→20:37)
[2021-08-03] MEDS: BACITRACIN OINTMENT 15 GM TUBE 1 APPLIC TOPICAL (09:08)
[2021-08-03] MEDS: TOLNAFTATE 1% POWDER 45 GM BTL 1 APPLIC TOPICAL ×2 (09:09→20:28)
[2021-08-03] MEDS: methylPHENIDATE HCL (*CRX) 5 MG TABLET PO ×2 (09:16→17:49)
[2021-08-03] MEDS: FINASTERIDE 5 MG TABLET PO (09:16)
--- NOTE | 2021-08-03 10:06 | PM.IMPN ---
Progress Note: A&P Assessment and Plan (1) Atrial fibrillation with RVR: Code(s): I48.91 - Unspecified atrial fibrillation Status: Acute (2) COVID-19: Code(s): U07.1 - COVID-19 Status: Acute (3) Pneumonia due to COVID-19 virus: Code(s): U07.1 - COVID-19; J12.82 - Pneumonia due to coronavirus disease 2018 Status: Acute Assessment and Plan: Resolved Tested positive on 07/04/2021 Saturation 84% upon arrival Supplemental O2 ordered was able to wean to room air, wean to maintain saturations greater than 90% CTA shows no PE, trace pleural effusions, emphysema, cirrhosis with portal hypertension, splenomegaly, small amount of ascitesStart remdesivir and dexamethasone day 5, completed Anti-tussives for c IS and Vahid therapyMonitor fluid status Albuterol scheduled Inflammatory markers: D-dimer 2.70, LDH 726, CRP 11.1, Ferritin 515 07/09/21 Isolation for droplet and contact precautions Lovenox 40 mg daily for DVT prophylaxis Repeat chest xray: Patchy bilateral airspace disease, compatible with pneumonia. (07/11/21) 07/18/2021 - on room air, SpO2 95%, HR 60-70, RR 16-20. 07/21/2021 now currently on high flow oxygen chest xray reviwed. unchanged opacities likely pneumonia versus pulmonary edema (4) Hepatitis C: Code(s): B19.20 - Unspecified viral hepatitis C without hepatic coma Status: Acute Assessment and Plan: CHRONIC. TREATED. etiology is hepatitis C and alcohol abuse. followed by hepatology at [facility] , Dr. Jyotsna Frank. this was treated at least 15 years ago and is inactive (5) Elevated d-dimer: Code(s): R79.89 - Other specified abnormal findings of blood chemistry Status: Acute Assessment and Plan: D-dimer 9.64, trending down 2.70 07/09/21, 3.[address] negative for PE Probably related to COVID Lovenox started 07/07/2021 DVT US - showed no DVTS, clear (6) Sepsis: Code(s): A41.9 - Sepsis, unspecified organism Status: Acute Assessment and Plan: Resolved Patient meets criteria with elevated white blood cell count of 19.2, lactic acid of 2.6, episodes of hypotension Repeat lactic is 2.1 Fluid resuscitation Blood cultures NGTD Antibiotics started Source of infection pneumonia, UTI Trend white blood cell count Tailor antibiotics as indicated (7) Ascites: Code(s): R18.8 - Other ascites Status: Acute Assessment and Plan: US paracentesis completed on Jul.15 with 3 L removed and started on spironolactone. Found on the CT In total 5250 off Albumin was given Needs a PRN order for outpatient paracentesis at discharge - will need to F/U with . fluid restriction and restrict sodium as well. avoid IV fluids which contribute to ascites need to follow up with [facility] keep weight controlled by keeping fluid retention down. TEDS on BLE for discharge instructions elevate scrotum. Q6 h IV albumin and IV Lasix to mobilize 3rd space fluid stay on a maintenance dose of Aldactone, which may improve his potassium levels. Paracentesis attempted to with no ascites noted (8) Diastolic CHF: Code(s): I50.30 - Unspecified diastolic (congestive) heart failure Status: Acute (9) Urinary retention: Code(s): R33.9 - Retention of urine, unspecified Status: Acute Assessment and Plan: States that he does not feel that he is fully empting Post residual void, bladder scan PRN Continue finasteride Follow urine output Urine catheter in place (10) Fracture of right hip requiring operative repair: Code(s): S72.001A - Fracture of unspecified part of neck of right femur, initial encounter for closed fracture Status: Acute Assessment and Plan: S/P repair on 06/25/21 PT/OT Pain medications ordered needs to get up to chair for meals, ordered avoid constipation, treat incontinence (11) Thrombocytopenia: Code(s): D69.6
[2021-08-03] MEDS: ACETAMINOPHEN 500 MG TABLET 1000 MG PO (10:34)
--- NOTE | 2021-08-03 10:41 | PM.PNCARD ---
Progress Note: A&P Assessment and Plan (1) Intermittent atrial fibrillation: Code(s): I48.0 - Paroxysmal atrial fibrillation Status: Acute Assessment and Plan: Now back in sinus rhythm. Continue oral amiodarone for now along with metoprolol. Currently not on any systemic anticoagulation. Continue to monitor on telemetry for recurrence of AFib. If he does have recurrence AFib will need to initiate anticoagulation. (2) Pneumonia due to COVID-19 virus: Code(s): U07.1 - COVID-19; J12.82 - Pneumonia due to coronavirus disease 2018 Status: Acute Assessment and Plan: Management Per hospitalist and pulmonology (3) Volume overload: Code(s): E87.70 - Fluid overload, unspecified Status: Acute Assessment and Plan: Will further reduce furosemide down tomorrow. Replace his potassium 40 mEq p.o. x1 (4) Cirrhosis: Code(s): K74.60 - Unspecified cirrhosis of liver Status: Acute (5) Hemoptysis: Code(s): R04.2 - Hemoptysis Status: Acute Assessment and Plan: Resolved. (6) Pleural effusion: Code(s): J90 - Pleural effusion, not elsewhere classified Status: Acute Assessment and Plan: Status post thoracentesis (7) Chest pain: Code(s): R07.9 - Chest pain, unspecified Status: Acute Assessment and Plan: Pleuritic in nature. Less likely cardiac. Echo showed normal LV systolic function. Subjective Date/time seen: 08/03/21 10:41 Interval history: 76-year-old originally admitted for [facility] cardiology consultation because of atrial fibrillation and elevated troponins before Date of service 08/02/2021: Complains of some loose stools but from a cardiac perspective doing okay with any chest pain dyspnea is still present but stable Date of service 08/03/2021: Sub complaints of diarrhea but no cardiac symptoms of chest pain, unusual shortness of breath Review of Systems Review of Systems: All systems reviewed & are unremarkable except as noted in HPI and below ROS unobtainable: Yes unobtainable due to endotracheal tube Constitutional: Constitutional: Reports weakness ENT: Reports Normal hearing present Cardiovascular: Cardiovascular: Denies chest pain and Reports dyspnea Respiratory: Respiratory: Reports dyspnea Gastrointestinal: Gastrointestinal: Reports diarrhea Neurologic: Reports Normal hearing present and Reports weakness Exam Const: General: comfortable and no acute distress Orientation/consciousness: patient oriented x3 Other: Older gentleman lying in bed resting comfortably. HENMT: Head: normal to inspection Ears: hearing grossly normal bilaterally Face and sinus: normal facial exam Mouth: Yes Normal oral and palatal mucosa present Eyes: General: appearance normal, both eyes and all related structures Pupils: Equal, round and reactive pupils present Neck: Neck: normal visual inspection and no JVD Resp: Effort & Inspection: normal respiratory effort Auscultation: no rales, no rhonchi and no wheezes Cardio: Rate: regular rate Rhythm: regular rhythm Heart sounds: no murmurs Skin: General skin exam: normal color Neuro: General: patient oriented x3 Cranial nerves: Yes Normal hearing present Extrem: General: abnormal to inspection and edema (R pretibial and pedal ) Other: L BKA Psych: Appearance: grossly normal Mental Status: mental status grossly normal Speech and movement: Normal speech and movement present Objective Data Vital Signs Vital Signs: Vital Signs - 24 hr 08/02/21 12:00 08/02/21 13:40 08/02/21 13:45 Temperature 36.3 C L Pulse Rate 76 81 76 Respiratory Rate 18 18 18 Blood Pressure 123/59 L Pulse Oximetry 97 08/02/21 14:00 08/02/21 15:43 08/02/21 16:00 Temperature 36.0 C L Pulse Rate 68 76 79 Respiratory Rate 18 22 H Blood Pressure 118/60 Pulse Oximetry 97 92 08/02/21 18:00 08/02/21 20:00 08/02/21 20:39 Temperature 37.4 C Pulse Ra
[2021-08-03] MEDS: MELATONIN 5 MG TABLET PO (20:27)
[2021-08-03] MEDS: DOCUSATE SODIUM 100 MG CAPSULE PO (20:28)
[2021-08-03] MEDS: HYDROcodone/acetaminophen (*CRX) 5-325 MG TABLET 1 TAB PO (20:36)
[2021-08-04] VITALS (31 sets, daily range): BP systolic 103–137; BP diastolic 51–75; PULSE 71–95; RESP 18–24; TEMP 36–36.8; O2SAT 90–98
[2021-08-04] MEDS: AMIODARONE HCL 200 MG TABLET PO ×2 (05:56→20:14)
[2021-08-04] MEDS: CENTRAL LINE FLUSH 10 ML IV PUSH ×3 (05:56→20:16)
[2021-08-04] MEDS: SPIRONOLACTONE 50 MG TABLET 200 MG PO (08:50)
[2021-08-04] MEDS: CHOLECALCIFEROL 1,000 UNITS TABLET 2000 UNITS PO (08:51)
[2021-08-04] MEDS: METOPROLOL TARTRATE 25 MG TABLET PO ×2 (08:51→20:13)
[2021-08-04] MEDS: SACCHAROMYCES BOULARDII 250 MG CAPSULE PO ×2 (08:51→17:56)
[2021-08-04] MEDS: methocarbamoL 500 MG TABLET PO (08:52)
[2021-08-04] MEDS: LORATADINE 10 MG TABLET PO (08:52)
[2021-08-04] MEDS: PANTOPRAZOLE 40 MG TABLET PO (08:53)
[2021-08-04] MEDS: POTASSIUM CHLORIDE 20 MEQ TABLET.ER 40 MEQ PO (08:53)
[2021-08-04] MEDS: FINASTERIDE 5 MG TABLET PO (08:53)
[2021-08-04] MEDS: ESCITALOPRAM OXALATE 10 MG TABLET 20 MG PO (08:54)
[2021-08-04] MEDS: FUROSEMIDE INJ 40 MG/4 ML VIAL IV PUSH ×2 (08:55→17:56)
[2021-08-04] MEDS: BACITRACIN OINTMENT 15 GM TUBE 1 APPLIC TOPICAL (08:56)
--- NOTE | 2021-08-04 08:56 | PCNWS ---
Weekly nutritional screen. Patient is tolerating current diet with adequate intake of 55-100% of meals. No weight loss reported. No nutritional needs at this time.
[2021-08-04] MEDS: TOLNAFTATE 1% POWDER 45 GM BTL 1 APPLIC TOPICAL ×2 (08:57→20:15)
[2021-08-04] MEDS: methylPHENIDATE HCL (*CRX) 5 MG TABLET PO ×2 (09:00→17:54)
[2021-08-04] MEDS: IPRATROPIUM BR 0.02% INH SOLN 0.5 MG/2.5 ML VIAL INHALATION ×3 (09:51→20:48)
[2021-08-04] MEDS: BUDESONIDE RESPULE NEB 0.5 MG/2 ML AMP INHALATION ×2 (09:51→20:48)
[2021-08-04] MEDS: ACETAMINOPHEN 500 MG TABLET 1000 MG PO (10:36)
--- NOTE | 2021-08-04 11:00 | PM.IMPN ---
Progress Note: A&P Assessment and Plan (1) Atrial fibrillation with RVR: Code(s): I48.91 - Unspecified atrial fibrillation Status: Acute (2) COVID-19: Code(s): U07.1 - COVID-19 Status: Acute (3) Pneumonia due to COVID-19 virus: Code(s): U07.1 - COVID-19; J12.82 - Pneumonia due to coronavirus disease 2018 Status: Acute Assessment and Plan: Acute respiratory failure secondary to COVID-19 pneumonia. , improving. Patient originally Tested positive on 07/04/2021 Saturation 84% upon arrival Supplemental O2 ordered was able to wean to room air, wean to maintain saturations greater than 90% CTA shows no PE, trace pleural effusions, emphysema, cirrhosis with portal hypertension, splenomegaly, small amount of ascitesStart remdesivir and dexamethasone day 5, completed Anti-tussives for c IS and Vahid therapyMonitor fluid status Albuterol scheduled Inflammatory markers: D-dimer 2.70, LDH 726, CRP 11.1, Ferritin 515 07/09/21 Isolation for droplet and contact precautions Lovenox 40 mg daily for DVT prophylaxis Repeat chest xray: Patchy bilateral airspace disease, compatible with pneumonia. (07/11/21) 07/18/2021 - on room air, SpO2 95%, HR 60-70, RR 16-20. 07/21/2021 now currently on high flow oxygen chest xray reviwed. unchanged opacities likely pneumonia versus pulmonary edema Patient continues to be symptomatic with minimal activity like speaking. He only requires 1 L of oxygen supplementation at rest. Will order home oxygen evaluation. (4) Hepatitis C: Code(s): B19.20 - Unspecified viral hepatitis C without hepatic coma Status: Acute Assessment and Plan: CHRONIC. TREATED. etiology is hepatitis C and alcohol abuse. followed by hepatology at [facility] , Dr. Jyotsna Frank. this was treated at least 15 years ago and is inactive (5) Elevated d-dimer: Code(s): R79.89 - Other specified abnormal findings of blood chemistry Status: Acute Assessment and Plan: D-dimer 9.64, trending down 2.70 07/09/21, 3.[address] negative for PE Probably related to COVID Lovenox started 07/07/2021 DVT US - showed no DVTS, clear (6) Sepsis: Code(s): A41.9 - Sepsis, unspecified organism Status: Acute Assessment and Plan: Resolved Patient met criteria with elevated white blood cell count of 19.2, lactic acid of 2.6, episodes of hypotension Repeat lactic is 2.1 Fluid resuscitation Blood cultures NGTD Antibiotics started Source of infection pneumonia, UTI Trend white blood cell count Tailor antibiotics as indicated (7) Ascites: Code(s): R18.8 - Other ascites Status: Acute Assessment and Plan: US paracentesis completed on Jul.15 with 3 L removed and started on spironolactone. Found on the CT In total 5250 off Albumin was given Needs a PRN order for outpatient paracentesis at discharge - will need to F/U with . fluid restriction and restrict sodium as well. avoid IV fluids which contribute to ascites need to follow up with [facility] keep weight controlled by keeping fluid retention down. TEDS on BLE for discharge instructions elevate scrotum. Q6 h IV albumin and IV Lasix to mobilize 3rd space fluid stay on a maintenance dose of Aldactone, which may improve his potassium levels. Paracentesis attempted to with no ascites noted (8) Diastolic CHF: Code(s): I50.30 - Unspecified diastolic (congestive) heart failure Status: Acute (9) Urinary retention: Code(s): R33.9 - Retention of urine, unspecified Status: Acute Assessment and Plan: States that he does not feel that he is fully empting Post residual void, bladder scan PRN Continue finasteride Follow urine output Urine catheter in place (10) Fracture of right hip requiring operative repair: Code(s): S72.001A - Fracture of unspecified part of neck of right femur, initial encounter for closed fractu
[2021-08-04 11:12] LABS: Hematocrit 37.6 % (42.0-52.0); Mean Corpuscular HGB Conc 31.9 g/dl (32-36); Mean Corpuscular Hemoglobin 30.3 pg (26-34); Mean Corpuscular Volume 94.9 fl (80-100); Mean Platelet Volume 12.1 fl (7.4-10.4); Platelet Count Result 108 k/mm3 (150-375); Red Blood Count 3.96 M/mm3 (4.6-6.20); Red Cell Distribution Width 16.2 % (11.5-14.5); White Blood Count 9.2 K/mm3 (4.5-10.0)
[2021-08-04 11:24] LABS: Alanine Aminotransferase 25 U/L (4-50); Alkaline Phosphatase 93 U/L (38-126); Anion Gap 11 mmol/L (8-16); Aspartate Amino Transferase 42 U/L (17-59); Bilirubin,Total 1.1 mg/dL (0.2-1.3); Blood Urea Nitrogen 21 mg/dL (9-20); Calcium 9.2 mg/dL (8.4-10.2); Carbon Dioxide 29 mmol/L (22-30); Chloride 96 mmol/L (98-107); Estimated CRCL calculation 63 ml/min; Estimated Glomerular Filt Rate > 60; Glucose 130 mg/dL (65-110); Potassium 3.9 mmol/L (3.4-5.0); Sodium 136 mmol/L (137-145)
--- NOTE | 2021-08-04 12:47 | HOMEO2EVAL ---
Evaluation was performed at [facility] Home Oxygen Evaluation RC: Home Oxygen (O2) Evaluation Start: 08/04/21 10:26 Freq: ONCE Status: Active Protocol: RPE Activity Type Activity Date Activity User E-Sign Co-Sign Detail Recorded Client Recorded Date Recorded By Document 08/04/21 11:30 DJO [id number] 08/04/21 12:47 DJO Document 08/04/21 11:35 [email or web address] [email or web address] 08/04/21 12:47 DJO Document 08/04/21 11:45 [email or web address] [email or web address] 08/04/21 12:47 DJO 08/04/21 08/04/21 08/04/21 11:30 11:35 11:45 Home O2 Evaluation Test Phase Resting Exercise Resting Oxygen Delivery Room Air Room Air Room Air Pulse Oximetry (90-100 %) 95 92 95 Pulse Rate (60-100 beats/min) 80 95 85 Treatment Charges O2 Evaluation - Inpatient
--- NOTE | 2021-08-04 12:48 | PCRCNOTE ---
HOME O2 EVAL REPEATED, NO REQUIREMENTS.
[2021-08-04] MEDS: HYDROcodone/acetaminophen (*CRX) 5-325 MG TABLET 1 TAB PO (20:14)
[2021-08-04] MEDS: MELATONIN 5 MG TABLET PO (20:15)
[2021-08-05] VITALS (18 sets, daily range): BP systolic 126–129; BP diastolic 52–58; PULSE 73–94; RESP 13–22; TEMP 35.8–36.4; O2SAT 92–97
[2021-08-05] MEDS: IPRATROPIUM BR 0.02% INH SOLN 0.5 MG/2.5 ML VIAL INHALATION ×2 (02:06→09:21)
[2021-08-05] MEDS: AMIODARONE HCL 200 MG TABLET PO (05:09)
[2021-08-05] MEDS: CENTRAL LINE FLUSH 10 ML IV PUSH (05:09)
[2021-08-05] MEDS: BUDESONIDE RESPULE NEB 0.5 MG/2 ML AMP INHALATION (09:21)
[2021-08-05] MEDS: METOPROLOL TARTRATE 25 MG TABLET PO (09:50)
[2021-08-05] MEDS: SPIRONOLACTONE 50 MG TABLET 200 MG PO (09:51)
[2021-08-05] MEDS: FLUTICASONE PROPIONATE 0.05% NA SPR 16 GM BTL (*BKC) 2 SPRAY NASAL (09:51)
[2021-08-05] MEDS: PANTOPRAZOLE 40 MG TABLET PO (09:51)
[2021-08-05] MEDS: AZELASTINE HCL NASAL 0.1% 137 MCG/SPR 30 ML BTL 2 SPRAY NASAL (09:51)
[2021-08-05] MEDS: CHOLECALCIFEROL 1,000 UNITS TABLET 2000 UNITS PO (09:51)
[2021-08-05] MEDS: FUROSEMIDE INJ 40 MG/4 ML VIAL IV PUSH (09:51)
[2021-08-05] MEDS: ESCITALOPRAM OXALATE 10 MG TABLET 20 MG PO (09:52)
[2021-08-05] MEDS: LORATADINE 10 MG TABLET PO (09:53)
[2021-08-05] MEDS: POTASSIUM CHLORIDE 20 MEQ TABLET.ER 40 MEQ PO (09:53)
[2021-08-05] MEDS: BACITRACIN OINTMENT 15 GM TUBE 1 APPLIC TOPICAL (09:53)
[2021-08-05] MEDS: FINASTERIDE 5 MG TABLET PO (09:53)
[2021-08-05] MEDS: SACCHAROMYCES BOULARDII 250 MG CAPSULE PO (09:54)
[2021-08-05] MEDS: TOLNAFTATE 1% POWDER 45 GM BTL 1 APPLIC TOPICAL (09:54)
[2021-08-05] MEDS: methylPHENIDATE HCL (*CRX) 5 MG TABLET PO (09:56)
[2021-08-05] MEDS: methocarbamoL 500 MG TABLET PO (10:11)
[2021-08-05] MEDS: traMADol HCL (*CRX) 50 MG TABLET PO (10:11)
--- NOTE | 2021-08-05 10:15 | PM.DS ---
DS: Admitting Diagnosis Discharge Date 08/05/2021 Admitting Diagnosis (1) Pneumonia due to COVID-19 virus: (2) Acute respiratory failure with hypoxia: (3) Sepsis: (4) Elevated d-dimer: (5) Elevated troponin: (6) Fluid overload: (7) Abnormal finding on urinalysis: (8) Thrombocytopenia: (9) Fracture of right hip requiring operative repair: (10) Urinary retention: (11) Abdominal pain: DS: Discharge Diagnosis Discharge Diagnosis (1) Atrial fibrillation with RVR: Code(s): I48.91 - Unspecified atrial fibrillation Status: Acute (2) COVID-19: Code(s): U07.1 - COVID-19 Status: Acute (3) Pneumonia due to COVID-19 virus: Code(s): U07.1 - COVID-19; J12.82 - Pneumonia due to coronavirus disease 2018 Status: Acute Assessment and Plan: Acute respiratory failure secondary to COVID-19 pneumonia. , improving. Patient continues require 1 L of oxygen p.r.n.. He will be discharged on this low volume of oxygen. He will follow up with Pulmonary as an outpatient and his primary provider within 7 days of discharge. Patient originally Tested positive on 07/04/2021 Saturation 84% upon arrival Supplemental O2 ordered was able to wean to room air, wean to maintain saturations greater than 90% CTA shows no PE, trace pleural effusions, emphysema, cirrhosis with portal hypertension, splenomegaly, small amount of ascitesStart remdesivir and dexamethasone day 5, completed Anti-tussives for c IS and Vahid therapyMonitor fluid status Albuterol scheduled Inflammatory markers: D-dimer 2.70, LDH 726, CRP 11.1, Ferritin 515 07/09/21 Isolation for droplet and contact precautions Lovenox 40 mg daily for DVT prophylaxis Repeat chest xray: Patchy bilateral airspace disease, compatible with pneumonia. (07/11/21) 07/18/2021 - on room air, SpO2 95%, HR 60-70, RR 16-20. 07/21/2021 now currently on high flow oxygen chest xray reviwed. unchanged opacities likely pneumonia versus pulmonary edema Patient continues to be symptomatic with minimal activity like speaking. He only requires 1 L of oxygen supplementation at rest. On home oxygen evaluation, the pateint becomes short of breath with activity but did not desaturate. He was discharged to [facility] where he will undergo rehabilitation/physical therapy. (4) Hepatitis C: Code(s): B19.20 - Unspecified viral hepatitis C without hepatic coma Status: Acute Assessment and Plan: CHRONIC. TREATED. etiology is hepatitis C and alcohol abuse. followed by hepatology at [facility] , Dr. Jyotsna Frank. this was treated at least 15 years ago and is inactive (5) Elevated d-dimer: Code(s): R79.89 - Other specified abnormal findings of blood chemistry Status: Acute Assessment and Plan: D-dimer 9.64, trending down 2.70 07/09/21, 3.[address] negative for PE Probably related to COVID Lovenox started 07/07/2021 DVT US - showed no DVTS, clear (6) Sepsis: Code(s): A41.9 - Sepsis, unspecified organism Status: Acute Assessment and Plan: Resolved Patient met criteria with elevated white blood cell count of 19.2, lactic acid of 2.6, episodes of hypotension Repeat lactic is 2.1 Fluid resuscitation Blood cultures NGTD Antibiotics started Source of infection pneumonia, UTI Trend white blood cell count Tailor antibiotics as indicated (7) Ascites: Code(s): R18.8 - Other ascites Status: Acute Assessment and Plan: US paracentesis completed on Jul.15 with 3 L removed and started on spironolactone. Found on the CT In total 5250 off Albumin was given Needs a PRN order for outpatient paracentesis at discharge - will need to F/U with . fluid restriction and restrict sodium as well. avoid IV fluids which contribute to ascites need to follow up with [facility] keep weight controlled by keeping fluid retention down. TEDS on BLE for discharge instructions elevate scrotum. Q6 h IV
--- NOTE | 2021-08-05 11:46 | PCOTNOTE ---
Attempted to see patient, patient c/o not feeling well and declined therapy at this time. Patient to d/c later possibly. Will re-attempt to see patient this afternoon.
--- NOTE | 2021-08-05 14:50 | HOMEO2EVAL ---
Evaluation was performed at [facility] Home Oxygen Evaluation RC: Home Oxygen (O2) Evaluation Start: 08/05/21 14:48 Freq: ONCE Status: Active Protocol: RPE Activity Type Activity Date Activity User E-Sign Co-Sign Detail Recorded Client Recorded Date Recorded By Document 08/05/21 14:10 ROMY [id number] 08/05/21 14:50 ROMY Document 08/05/21 14:15 ROMY [id number] 08/05/21 14:50 ROMY Document 08/05/21 14:30 ROMY [email or web address] 08/05/21 14:50 ROMY 08/05/21 08/05/21 08/05/21 14:10 14:15 14:30 Home O2 Evaluation Test Phase Resting Exercise Resting Oxygen Delivery Room Air Room Air Room Air Pulse Oximetry (90-100 %) 95 92 94 Pulse Rate (60-100 beats/min) 75 94 79 Home Oxygen Evaluation Comments NO HOME O2 NEEDED. Treatment Charges O2 Evaluation - Inpatient
--- NOTE | 2021-08-05 14:50 | PCRCNOTE ---
HOME O2 EVAL REPEATED TODAY. NO HOME O3 NEEDED AT THIS TIME AT REST OR WITH ACTIVITY. UP TO SIDE OF BED, PUT ON PROSTHETIC, WENT TO BATHROOM, WALKED WITH WALKER TO DOOR AND BACK TO BED. PT SOB BUT DID NOT DESAT. RN NOTIFIED.
== END 2021-08-05 15:33 | DRG 871 ==
LOC: ANHED 07-07 00:19 → ANHIMU 07-07 02:45 → ANH3MEDSUR 07-12 16:11 → ANHIMU 07-22 08:07 → ANH3MEDSUR 08-06 10:48 → ANHIMU 08-06 10:48
PROVIDERS: Family Medicine; Internal Medicine; Internal Medicine Cardiovascular Disease; Internal Medicine Gastroenterology; Internal Medicine Pulmonary Disease; Nurse Practitioner; Nurse Practitioner Adult Health; Admitting Provider Internal Medicine; Emergency Provider Emergency Medicine; Visit Provider Hospitalist
DX: A41.9 Sepsis, unspecified organism (principal); U07.1 COVID-19; J12.82 Pneumonia due to coronavirus disease 2019; I26.99 Other pulmonary embolism without acute cor pulmonale; J96.01 Acute respiratory failure with hypoxia; I50.31 Acute diastolic (congestive) heart failure; J18.9 Pneumonia, unspecified organism; N39.0 Urinary tract infection, site not specified; R18.8 Other ascites; E87.1 Hypo-osmolality and hyponatremia; R04.2 Hemoptysis; J44.0 Chronic obstructive pulmonary disease with (acute) lower respiratory infection; J44.1 Chronic obstructive pulmonary disease with (acute) exacerbation; J90 Pleural effusion, not elsewhere classified; B95.2 Enterococcus as the cause of diseases classified elsewhere; B18.2 Chronic viral hepatitis C; E87.6 Hypokalemia; R33.9 Retention of urine, unspecified; D69.59 Other secondary thrombocytopenia; K52.9 Noninfective gastroenteritis and colitis, unspecified; K70.30 Alcoholic cirrhosis of liver without ascites; F10.10 Alcohol abuse, uncomplicated; I48.0 Paroxysmal atrial fibrillation; L30.4 Erythema intertrigo; Z89.512 Acquired absence of left leg below knee; Z87.891 Personal history of nicotine dependence; S72.001D Fracture of unspecified part of neck of right femur, subsequent encounter for closed fracture with routine healing; W19.XXXD Unspecified fall, subsequent encounter; F41.9 Anxiety disorder, unspecified
CPT/HCPCS: 32555; 36415; 36569; 36600; 49083; 71045; 71275; 74018; 74176; 74177; 76705; 80048; 80053; 80202; 81001; 82042; 82140; 82150; 82550; 82565; 82570; 82728; 82805; 82945; 82948; 83605; 83615; 83690; 83735; 83880; 83935; 83986; 84100; 84157; 84300; 84443; 84460; 84484; 84540; 85014; 85018; 85025; 85027; 85055; 85380; 85610; 85652; 85730; 86036; 86038; 86140; 86200; 86331; 86430; 86606; 86609; 86850; 86900; 86901; 87015; 87040; 87070; 87075; 87077; 87086; 87088; 87102; 87116; 87186; 87205; 87206; 87493; 87804; 88104; 88108; 88184; 88305; 89051; 93005; 93306; 93970; 93971; 93978; 94002; 94003; 94618; 94640; 94660; 96361; 96365; 96372; 96375; 97110; 97116; 97161; 97162; 97165; 97166; 97530; 97535; 99291; A9270; C1751; C8929; C9803; G0378; J0282; J0692; J0696; J1100; J1644; J1650; J1940; J2060; J2270; J2920; J2930; J3370; J3480; J7030; J7040; P9047; Q9957; Q9967; U0003; U0005

== ENCOUNTER 2023-04-13 10:15 | Emergency (ER) | payer OTHER, SELFPAY ==
--- NOTE | ~2023-04-13 | XR_ITS ---
XR abdomen/kub 1V DATE: 04/13/2023 14:16 INDICATION: Abdominal cramping and constipation for 3 weeks TECHNIQUE: 2 supine AP views COMPARISON: July 25, 2021 abdominal ultrasound examination July 16, 2021 CT abdomen pelvis FINDINGS: Right lower lobe calcified pulmonary granuloma. The lung bases appear clear. There are multiple nondilated gas containing small bowel segments. No bowel obstruction is evident. N o visceromegaly is detected. Status post bilateral inguinal herniorrhaphy. Right hip bipolar prosthesis. There are several pins through the left intertrochanteric area and femo ral neck into the femoral head and left intramedullary femoral marianela. There is mild rotatory dextroscoliosis and multilevel severe degenerative disc disease of the lumbar spine. Diffuse osteopenia. IMPRESSION: Nonspecific abdomen Reviewed, dictated and finalized at [facility]. Reviewed, dictated and finalized at location [facility]. IMPRESSION: Nonspecific abdomen
[2023-04-13 10:25] VITALS: BP 126/89; PULSE 70; RESP 18; TEMP 36.5; O2SAT 99
[2023-04-13 10:52] LABS: Basophils Percent Auto 0.5 % (0.2-1.2); Eosinophils Absolute Auto 0.2 K/mm3 (0-0.3); Eosinophils Percent Auto 3.8 % (0-4.4); Hematocrit 43.7 % (42.0-52.0); Hemoglobin 13.9 g/dL (14.0-18.0); Immature Granulocyte Absolute 0.01 K/mm3 (0.00-0.031); Immature Granulocyte Percent A 0.2 % (0-0.5); Immature Platelet Fraction Pct 7.3 % (0.9-11.2); Lymphocytes Absolute Auto 0.94 K/mm3 (0.9-3.2); Lymphocytes Percent Auto 15.5 % (18.3-44.2); Mean Corpuscular HGB Conc 31.8 g/dl (32-36); Mean Corpuscular Hemoglobin 28.2 pg (26-34); Mean Corpuscular Volume 88.6 fl (80-100); Mean Platelet Volume 11.4 fl (7.4-10.4); Monocytes Absolute Auto 0.7 K/mm3 (0.1-0.6); Neutrophils Absolute Auto 4.2 K/mm3 (1.3-6.7); Platelet Count Result 117 k/mm3 (150-375); Red Blood Count 4.93 M/mm3 (4.6-6.20); Red Cell Distribution Width 18.6 % (11.5-14.5); White Blood Count 6.1 K/mm3 (4.5-10.0)
[2023-04-13 11:04] LABS: Alanine Aminotransferase 25 U/L (6-50); Alkaline Phosphatase 89 U/L (38-126); Anion Gap 5 mmol/L (8-16); Aspartate Amino Transferase 39 U/L (17-59); Blood Urea Nitrogen 20 mg/dL (9-20); Calcium 9.3 mg/dL (8.4-10.2); Carbon Dioxide 28 mmol/L (22-30); Chloride 104 mmol/L (98-107); Estimated CRCL calculation 67 ml/min; Estimated Glomerular Filt Rate > 60; Glucose 105 mg/dL (65-110); Lipase 242 U/L (23-300); Potassium 3.9 mmol/L (3.4-5.0); Sodium 137 mmol/L (137-145)
[2023-04-13 11:10] LABS: Appearance Urine Clear (Clear); Bilirubin Urine Negative (Negative); Blood Urine Negative (Negative); Color Urine Yellow (Yellow); Glucose Urine UA Negative (Negative); Ketones Urine Negative (Negative); Leukocyte Esterase Ur Negative LEU/UL (Negative); Nitrate Urine Negative (Negative); Protein Urine Negative (Negative); Specific Grav Ur 1.007 (1.001-1.035); Urobilinogen Urine 0.2 mg/dL (<2.0)
[2023-04-13 11:15] LABS: Add Urine Microscopic? NO
[2023-04-13 13:30] VITALS: BP 102/90; PULSE 65; RESP 18; O2SAT 95
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
== END 2023-04-13 16:01 | disposition home or self-care (01) ==
PROVIDERS: Emergency Provider Emergency Medicine
DX: R10.9 Unspecified abdominal pain (principal); I25.2 Old myocardial infarction; K74.60 Unspecified cirrhosis of liver; Z86.16 Personal history of COVID-19; Z87.01 Personal history of pneumonia (recurrent); Z86.711 Personal history of pulmonary embolism; Z87.891 Personal history of nicotine dependence; Z89.512 Acquired absence of left leg below knee; Z90.79 Acquired absence of other genital organ(s)
CPT/HCPCS: 36415; 74018; 80053; 81003; 83690; 85025; 85055; 99283

== ENCOUNTER 2023-06-24 10:13 | Outpatient (CLI) | payer OTHER, SELFPAY ==
--- NOTE | ~2023-06-24 | CT_ITS ---
. EXAMINATION: CT chest abdomen pelvis w con DATE: 06/24/2023 10:46 INDICATION: Epigastric, right upper quadrant pain. Cirrhosis. Abnormal weight loss. TECHNIQUE: Computed tomography (CT) of the chest, abdomen and pelvis was performed with 100 CC Omnipa que 350 intravenous contrast. Automated exposure control and iterative reconstruction technique were employed. Exam dose: 901.04 mGy-cm total exam DLP. COMPARISON: 04/13/2023 KUB 08/04/2021 portable AP chest abdominal ultrasound duplex examination 07/23/2021 CTA chest 07/16/2021 CT abdomen pelvis FINDINGS: Normal heart size. Mitral annulus calcification. There is thoracic aortic and great vessel calcification. No thoracic aortic aneurysm or dissection. No hilar or mediastinal mass lesion or lymphadenopathy. There is evidence of old pulmonary granulomat ous disease including calcified paratracheal, precarinal, right hilar and subcarinal nodes, calcified right upper and lower lobe pulmonary granulomas. There is prominent bullous emphysema. No pulmonary infiltrate or consolidation or suspicious pulmonary mass lesion is evident. There is prominent surface nodularity and diminished size of the liver consistent with cirrhosis. No focal hepatic space-occupying mass lesion is evident. Mild splenomegaly. There are calcified splenic granulomas. No pancreatic mass lesion or calcification or pancreatic duct dilatation. The gallbladder is present. No gallbladder wall thickening or bile duct dilatation is noted. There is mild primarily perihepatic and dependent pelvis ascites. Normal morphology of the adrenal glands. The right kidney is unremarkable. Occasional left renal cysts, measuring up to 1.6 cm. No urinary tra ct calculus or hydroureteronephrosis is evident. There is considerable streak artifact from bilateral hip hardware including right bipolar hip prosthe sis at left hip pins, limiting evaluation of the pelvic area. There is prostate enlargement and prominent prostate calcification. There appears to be moderate diff use thickening of the urinary bladder wall but the bladder is well demonstrated. No evidence of appendicitis or bowel obstruction. No bowel wall thickening, pneumatosis or intraperit whitmore free air is detected. Status post bilateral inguinal herniorrhaphy. IMPRESSION: Prominent bullous emphysema Cirrhosis, mild splenomegaly, mild ascites Left renal cysts Prostate enlargement and calcification Reviewed, dictated and finalized at [facility]. Reviewed, dictated and finalized at location L. TIC MOLDER
[2023-06-24 10:37] LABS: Estimated Glomerular Filt Rate > 60
== END 2023-06-24 10:14 | disposition home or self-care (01) ==
LOC: ANHIMG 10:13
PROVIDERS: PCP Family Medicine Adolescent Medicine; Visit Provider Nurse Practitioner
DX: K59.00 Constipation, unspecified (principal); K74.60 Unspecified cirrhosis of liver; R10.13 Epigastric pain; R63.4 Abnormal weight loss; J43.9 Emphysema, unspecified; N28.1 Cyst of kidney, acquired; N40.0 Benign prostatic hyperplasia without lower urinary tract symptoms
CPT/HCPCS: 71260; 74177; Q9967

== ENCOUNTER 2023-07-15 01:34 | Day surgery (SDC) | payer OTHER, SELFPAY ==
[2023-06-18 09:10] VITALS: BMI 25.1
--- NOTE | 2023-07-13 08:58 | SUR.PREOP ---
Patient called regarding upcoming procedure. Reviewed preop instructions, appointment times, and procedure prep.
--- NOTE | 2023-07-14 09:17 | PC.NURSE ---
Spoke with Jennifer at [facility] living regarding Gene Ray and procedures scheduled for tomorrow. She will review prep instructions with him and assure he is able to follow them. I spoke with patient regarding his driver education instructor and it will be Arleth Cosby and she will be staying with him for his appt. He verbalized understanding of todays prep and Med. to take in the am before arrival.
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
[2023-07-15 09:45] VITALS: BP 115/47; PULSE 61; RESP 18; TEMP 36.3; O2SAT 100
[2023-07-15] MEDS: LACTATED RINGERS 1,000 ML 150 ML IV CONT (09:48)
[2023-07-15] MEDS: SIMETHICONE ORAL SUSPENSION 20 MG/0.3 ML 30 ML BOTTLE 0.6 ML IRRIGATION (10:01)
--- NOTE | 2023-07-15 10:08 | SUR.OPER ---
EGD: [id number] COLON: Start 1008
[2023-07-15 10:27] VITALS: BP 88/50; PULSE 64; RESP 20; O2SAT 97
[2023-07-15 10:37] VITALS: BP 122/62; PULSE 63; RESP 20; O2SAT 100
[2023-07-15 10:47] VITALS: BP 115/60; PULSE 58; RESP 22; O2SAT 100
--- NOTE | 2023-07-15 11:55 | SUR.PHASEII ---
Small skin tear occured while discontinuing IV site, Wound treated and dressed, This was discussed during RN handoff to Chilo at [facility].
== END 2023-07-15 11:24 | disposition home or self-care (01) ==
PROVIDERS: PCP Family Medicine Adolescent Medicine; Visit Provider Internal Medicine Gastroenterology
PROC: 0DJ08ZZ Inspection of Upper Intestinal Tract, Via Natural or Artificial Opening Endoscopic (ICD-10-PCS; CPT 43235; principal; 2023-07-15 10:30)
DX: K29.50 Unspecified chronic gastritis without bleeding (principal); D12.4 Benign neoplasm of descending colon; K64.8 Other hemorrhoids; J43.8 Other emphysema; K62.1 Rectal polyp; K21.00 Gastro-esophageal reflux disease with esophagitis, without bleeding; I85.00 Esophageal varices without bleeding; K74.60 Unspecified cirrhosis of liver; I25.2 Old myocardial infarction; Z79.82 Long term (current) use of aspirin; Z89.512 Acquired absence of left leg below knee; Z98.890 Other specified postprocedural states; Z87.891 Personal history of nicotine dependence; Z86.711 Personal history of pulmonary embolism; Z87.09 Personal history of other diseases of the respiratory system; Z80.52 Family history of malignant neoplasm of bladder; Z82.49 Family history of ischemic heart disease and other diseases of the circulatory system
CPT/HCPCS: 43239; 45380; 45385; 88305; J2001; J2704; J7120

== ENCOUNTER 2023-08-04 10:10 | Outpatient (CLI) | payer OTHER, SELFPAY ==
--- NOTE | ~2023-08-04 | NM_ITS ---
EXAM: NM gastric emptying study DATE: 08/04/2023 16:44 VELVET STEAMER INDICATION: Nausea, abdominal pain and bloating TECHNIQUE: A gastric emptying study was performed using the methodology of Gavino QUINTERO, et al. J Nucl Med 2007; 48:568-572. The patient was given a meal consisting of 2 scrambled eggs labeled with 0.962 mCi Tc-99m sulfur colloid, 2 slices of toast, two packages of jam, and approximately 120 mL of water . Simultaneous anterior and posterior 1-min images of the abdomen were obtained with the patient supi ne at multiple time points over a total period of 4 hours. The geometric mean of anterior and posteri or views was determined, and the percentage retention was calculated for each time point. COMPARISON: None. FINDINGS: Gastric retention of the radiotracer-labeled meal was 63%, 43%, and 3% at the 1-hour, 2-ho ur, and 4-hour time points, respectively. With this technique, apparent rapid gastric emptying is sug gested by <30% gastric retention at 1 hour. Delayed gastric emptying is defined by gastric retention of >90% at 1 hour, >60% retention at 2 hours, or >10% retention at 4 hours. IMPRESSION: 1. Normal gastric emptying. Reviewed, dictated and finalized at location A. ET STEAMER IMPRESSION: 1. Normal gastric emptying.
== END 2023-08-04 10:11 | disposition home or self-care (01) ==
PROVIDERS: PCP Family Medicine Adolescent Medicine; Visit Provider Nurse Practitioner
DX: R10.9 Unspecified abdominal pain (principal); R11.0 Nausea; R63.0 Anorexia; R63.4 Abnormal weight loss
CPT/HCPCS: 78264; A9541

== ENCOUNTER 2023-08-11 08:35 | Outpatient (CLI) | payer OTHER, SELFPAY ==
--- NOTE | ~2023-08-11 | XR_ITS ---
EXAMINATION: XR small bowel follow through DATE: 08/11/2023 09:55 INDICATION: Abdominal pain. Early satiety. Nausea. Bloating. TECHNIQUE: Oral contrast was administered, and a time course of radiographs of the abdomen was obtain ed. Fluoroscopy of the small bowel was performed. Fluoroscopy exposure time was 0.2 minutes. The tota l number of images was 11. COMPARISON: CT abdomen and pelvis 06/24/23 FINDINGS: There is no abnormal mass or stricture. The terminal ileum is normal. Transit time from the stomach t o proximal colon was approximately 40 minutes. There is a bipolar right hip hemiarthroplasty. There i s screw fixation of proximal left femur. IMPRESSION: 1. Normal small bowel series. Reviewed, dictated and finalized at location A. ROOM MANAGER
== END 2023-08-11 08:36 | disposition home or self-care (01) ==
PROVIDERS: PCP Family Medicine Adolescent Medicine; Visit Provider Nurse Practitioner
DX: R11.0 Nausea (principal); R63.0 Anorexia; R63.4 Abnormal weight loss
CPT/HCPCS: 74250

== ENCOUNTER 2023-08-12 09:18 | Outpatient (CLI) | payer OTHER, SELFPAY ==
--- NOTE | 2023-08-12 16:42 | WPDSIXMINUTE ---
Six Minute Walk Procedure Procedure Performed Pulmonary Stress Test (6 min walk) Six Minute Walk Six Minute Walk: This is a 6 minute walk test. The test was performed and interpreted in accordance with the 2014 ERS/ATS task force guidelines. Of note, patient perform this test with the personal cane. Findings: The patient's resting room air oxygen saturation measured by pulse oximetry was 97% and heart rate was 79 bpm. Patient ambulated for 229 meters and oxygen saturation remained 93 to 96%. Heart rate at the end of the study was 81 bpm. The patient did not qualify for supplemental oxygen at rest or with ambulation. There are no prior studies for comparison.
--- NOTE | 2023-08-12 16:44 | WPDPFTINT ---
PFT Procedure Performed PFT Procedure Performed Spirometry with Pre/Post Bronchodilator Plethysmography (Lung Vol) Diffusing Cap (DLCO) Flow Vol Loop PFT Interpretation This is a pulmonary function test with pre and post-bronchodilator spirometry, plethysmography and diffusing capacity. The test was performed and results interpreted in accordance with the 2019 and 2005 ATS/ERS Task Force guidelines respectively using the Global Lung Function Initiative-2012 reference equations. Patient demonstrated good effort and cooperation. Reproducibility criteria were met. The quality of the pre bronchodilator spirometry maneuver was Grade A and post bronchodilator spirometry maneuver was Grade A. Findings: Spirometry: There is decreased maximal expiratory airflow at low lung volumes with concave expiratory flow tracing. The contour the inspiratory flow tracing is normal. The pre bronchodilator FVC is 5.19 L, 125% predicted. The pre bronchodilator FEV1 is 3.23 L, 105% predicted. The pre bronchodilator FEV1: FVC ratio 62%. The post bronchodilator FVC is 5.13 L, representing 1% decrease. The post bronchodilator FEV1 is 3.24 L, representing no change. The post bronchodilator FEV1: FVC ratio 63%. Plethysmography: The total lung capacity is 6.66 L, 92% predicted. The functional residual capacity is 3.15 L, 81% predicted. The residual volume is 1.46 L, 56% predicted. Diffusing capacity: The diffusing capacity unadjusted for hemoglobin and carboxyhemoglobin is 10.7, 43% predicted. The diffusing capacity adjusted for alveolar volume is 1.82, 49% predicted. Impression: The spirometry is normal without evidence of an obstructive abnormality. There is no significant improvement after inhaling a single dose of albuterol. The total lung capacity and functional residual capacity are normal with a decreased residual volume. This is an abnormal but nonspecific lung volume pattern. The diffusing capacity unadjusted for hemoglobin and carboxyhemoglobin is moderately decreased and remains moderately decreased when adjusted for alveolar volume. There are no prior studies for comparison
== END 2023-08-12 09:19 | disposition home or self-care (01) ==
LOC: ANHPFT 09:19
PROVIDERS: PCP Family Medicine Adolescent Medicine; Visit Provider Internal Medicine Pulmonary Disease
DX: J43.9 Emphysema, unspecified (principal); Z87.891 Personal history of nicotine dependence
CPT/HCPCS: 94060; 94618; 94726; 94729

== ENCOUNTER 2023-08-27 11:26 | Outpatient (CLI) | payer OTHER, SELFPAY ==
--- NOTE | ~2023-08-27 | XR_ITS ---
Supine and upright views of the abdomen Clinical history: Abdominal pain, anorexia COMPARISON: 08/03/2023 Findings: Bowel gas pattern is nonspecific. No evidence for obstruction or free air. Stable right upp er quadrant calcification, possibly hepatic calcification or gallstone. Probable calcified splenic gr anulomas. Stable orthopedic hardware at the bilateral hips. Degenerative change of the lumbar spine n oted. Impression: No acute abnormality. Stable right upper quadrant calcification, possibly gallstone or hepatic calcification. Stable calcified splenic granulomas. Reviewed, dictated and finalized at location . Impression: No acute abnormality. Stable right upper quadrant calcification, possibly gallstone or hepatic calcif ication. Stable calcified splenic granulomas.
== END 2023-08-27 11:27 | disposition home or self-care (01) ==
LOC: ANHIMG 11:29
PROVIDERS: PCP Family Medicine Adolescent Medicine; Visit Provider Nurse Practitioner
DX: R19.4 Change in bowel habit (principal); R63.4 Abnormal weight loss; R11.0 Nausea; R18.8 Other ascites
CPT/HCPCS: 74018

== ENCOUNTER 2023-09-08 09:03 | Outpatient (CLI) | payer OTHER, SELFPAY ==
--- NOTE | ~2023-09-08 | MR_ITS ---
EXAMINATION: MR abdomen wo/w con DATE: 09/08/2023 10:11 INDICATION: Bloating and cramping in the abdomen. Weight loss. Cirrhosis. TECHNIQUE: Magnetic resonance imaging (MRI) of the abdomen was performed without and with 16 mL Multi Segun intravenous contrast. COMPARISON: CT abdomen and pelvis 06/24/2023, chest CT 07/23/21 FINDINGS: There is a trace right pleural effusion. There is a 10.4 x 6.9 x 2.9 cm nonenhancing subcutaneous mas s in left flank, likely a chronic hematoma. The liver is small with a nodular surface contour, consis tent with cirrhosis. In segment IVb, there is arterial phase hyperenhancement measuring 14 mm without washout (LI-RADS category 3). The gallbladder is normal in size. There is gallbladder wall thickenin g, likely secondary to chronic liver disease and interstitial edema. There is moderate splenomegaly. There is an old hematoma at the periphery of the spleen. The pancreas, adrenal glands, are normal. Th ere are cysts in the kidneys measuring up to 17 mm on the left. There is a large volume of ascites. T here are no dilated loops of bowel. There are no pathologically enlarged lymph nodes. IMPRESSION: 1. Cirrhosis of the liver with portal venous hypertension. 2. LI-RADS category 3: Intermediate probability for hepatocellular carcinoma. 3. Large volume of ascites. 4. 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 Reviewed, dictated and finalized at location A.
== END 2023-09-08 09:04 ==
PROVIDERS: PCP Nurse Practitioner; Visit Provider Nurse Practitioner
DX: R93.2 Abnormal findings on diagnostic imaging of liver and biliary tract (principal); R18.8 Other ascites; K74.69 Other cirrhosis of liver
CPT/HCPCS: 74183; A9577

== ENCOUNTER 2023-09-08 09:16 | Outpatient (CLI) | payer OTHER, SELFPAY ==
--- NOTE | 2023-09-15 12:29 | WPDSLEEPSTUD ---
Sleep Study Date of Study: 09/08/23 Ordering Provider: Lawrence Christie APRN Interpreting Physician: Natalee Gray MD Sleep Study Type: Split Polysomnogram Height: 1.8 m Weight: 78.925 kg Body Mass Index: 24.3 Neck Circumference (inches): 15 [place]: 1 Reason for Sleep Study Low oxygen saturation while sleeping, new diagnosis of emphysema Sleep History Alex Fish is a 78-year-old man with emphysema and low oxygen saturation during sleeping. He rarely awakens from sleep feeling short of breath. He never wakes at night with heartburn, belching or coughing.??He never never snores, and never snores loudly enough that others complain. He never has trouble sleeping when he has a cold, never wakes up gasping for breath during the night, and never has breathing problems at night. He denies sweating excessively at night or noticing his heart beating or pounding irregularly at night. He never fall asleep during the day, never falls asleep involuntarily or while driving. He does not have loss of muscle tone with strong emotion, does not feel paralyzed on waking or falling asleep nor does he have vivid dreamlike scenes upon awakening or falling asleep. He has never frayed to go to sleep, denies having nightmares, does not have dream recall in general. He does not have problems in the daytime due to excessive sleepiness. He denies feeling sad or depressed however occasionally he feels anxiety. Does not have muscular tension, does not notice parts of his body jerking and he denies kicking at night. Occasionally, he has crawling and aching feelings in his legs and rarely he has leg pain during the night. He does not have morning jaw pain nor does he grind his teeth during sleep. He frequently is bothered by pain during the day. He occasionally is awakened by pain at night. He does not wake up feeling stiff in the morning. He rarely wakes up with sore achy muscles pain in the neck and spine. He has fatigue. Normal bedtime is 10:00 p.m. falling asleep within 10-15 minutes, typically waking twice during the night to go to the bathroom, returns to sleep easily. He wakes around 6 in the morning. He keeps the same schedule on weekends, goes to bed 1 hour later but wakes at the same time. He estimates getting between 7 and 8 hours of sleep at night. He does not take naps in the afternoon or evening. He does not feel refreshed after taking a short 10-15 minute nap. Most of the time he feels good during the day. He feels better in the afternoon compared to other times of day. Habits:??Tobacco: Former smoker, quit in 2021. Caffeine: None Alcohol: None Recreational substances: none [facility] Past Medical History Medical History Abnormal weight loss Acute non-ST elevation myocardial infarction (NSTEMI) Acute respiratory failure Ascites Bullous emphysema Change in bowel habits Cirrhosis Decreased appetite Depression with anxiety Epigastric pain Fracture of right hip requiring operative repair GERD with esophagitis Hx of adenomatous colonic polyps Hx of esophageal varices Melena Nausea Pneumonia due to COVID-19 virus Prostate enlargement Pulmonary emboli Sepsis Sleep apnea Thrombocytopenia Surgical History Surgical History 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 He does h
[2023-09-16 07:54] VITALS: BMI 24.3
== END 2023-09-09 07:38 | disposition home or self-care (01) ==
LOC: ANHCSM 09:20
PROVIDERS: PCP Nurse Practitioner; Visit Provider Nurse Practitioner Family
DX: G47.30 Sleep apnea, unspecified (principal); G47.33 Obstructive sleep apnea (adult) (pediatric); G47.61 Periodic limb movement disorder
CPT/HCPCS: 95811

== ENCOUNTER 2023-11-10 12:38 | Outpatient (CLI) | payer OTHER, SELFPAY ==
--- NOTE | ~2023-11-10 | US_ITS ---
EXAMINATION: US venous doppler LE RT DATE: 11/10/2023 13:38 INDICATION: Right lower limb localized swelling. TECHNIQUE: Grayscale ultrasound images without and with compression and Doppler ultrasound images of the right lower extremity veins were obtained. COMPARISON: None. FINDINGS: The visualized portions of right common femoral vein, profunda (deep) femoral vein, femoral vein, pop liteal vein, peroneal veins, posterior tibial veins, and greater saphenous vein outflow are patent. IMPRESSION: 1. No deep venous thrombosis. Reviewed, dictated and finalized at location A.
== END 2023-11-10 12:39 | disposition home or self-care (01) ==
PROVIDERS: PCP Family Medicine Adolescent Medicine; Visit Provider Family Medicine Adolescent Medicine
DX: R22.41 Localized swelling, mass and lump, right lower limb (principal)
CPT/HCPCS: 93971

== ENCOUNTER 2025-02-12 01:22 | Emergency (ER) | payer OTHER, SELFPAY ==
--- OUTSIDE RECORDS SUMMARY | 2024-02-22 05:00 | XMS_ITS | Encounter Summary ---
Author Name [facility] Address [address] [place] [address] Care Team Providers Care Seo Associate Name Role Phone TRUMAN GONZALEZ Primary Care Provider Unavailabl e Insurance Providers: All historical and current Section Date Range: From patient's date of to the date document was created. This section includes the names of all active insurance providers for the patient. Insurance Provider Type of Coverage Plan Name Start of Policy Coverage End of Policy Coverage Group Number Member ID Insurance Provider's Telephone Number Policy Ramirez's Name Patient's Relationship to Policy Ramirez Selected Encounter This section includes the information on record at [place] for the Encounter. Date/Time Encounter Type Encounter Description Reason Provider Source Feb 22, 2024 10:00 AM OFFICE O/P EST MOD 30 MIN OPTOMETRY ICD-10-CM H04.123 Dry eye syndrome of bilateral lacrimal glands CHIVETTA,NASEEM CORTES [facility] Encounter Template Text not used by [place] Assessments - Encounter Diagnoses This section includes the primary and secondary diagnoses documented for the Encounter. Date/Time Primary/Secondary Diagnosis Diagnosis Name Provider Source Feb 22, 2024 11:11 AM PRIMARY Dry eye syndrome of bilateral lacrimal glands CHIVETTA,NASEEM CORTES [facility] Feb 22, 2024 11:11 AM SECONDARY Age-related nuclear cataract, bilateral CHIVETTA,NASEEM [place] [facility] Feb 22, 2024 11:11 AM SECONDARY Presbyopia CHIHEIDITTA,NASEEM CORTES [facility] Plan of Treatment: Future Appointments (+ 6 months) and Future Tests (+/- 45 days) The Plan of Treatment section includes future care activities for the patient from all [place] treatmentfacilities. This section includes future appointments and future orders which are active, pending or scheduled. Future Appointments This section includes appointments that were scheduled to occur 6 months from the date of the Encounter, up to a maximum of 20 appointments. The data comes from all [place] treatment facilities. Appointment Date/Time Appointment Type Appointme nt Facility Name 2024 10:00 AM AMBULATORY - NONE [facility] Mar 22, 2024 10:00 AM AMBULATORY - MEDICINE [facility] Apr 07, 2024 10:30 AM AMBULATORY - MEDICINE [facility] Apr 25, 2024 08:30 AM AMBULATORY - NONE [facility] May 10, 2024 01:40 PM AMBULATORY - MEDICINE [facility] Jul 13, 2024 09:00 AM AMBULATORY - NONE [facility] Jul 13, 2024 10:00 AM AMBULATORY - MEDICINE [facility] Jul 18, 2024 02:00 PM AMBULATORY - MEDICINE [facility] Jul 24, 2024 08:30 AM AMBULATORY - NONE [facility] Aug 02, 2024 09:30 AM AMBULATORY - REHAB MEDICIN E [facility] Aug 09, 2024 12:20 PM AMBULATORY - MEDICINE [facility] Lab Results: +/- 30 days of the encounter This section includes the Chemistry and Hematology Lab Results on record with [place] for the patient. Radiology Reports and Pathology Reports are provided separately, in subsequent sections. Lab Results This section contains the Chemistry/Hematology Results that were resulted 30 days before or 30 daysafter the date of the Encounter. Date/Time Source Result Type Result - Unit Interpretation Reference Range Specimen Type Comment Feb 22, 2024 12:07 PM [facility] CONJ. BILIRUBIN PLASMA Specimen Type: PLASMA Comment: No hemolysis noted. Ordering Provider: ALBSMEYER,KASSI M Report Released Date/Time: Feb 10, 2024 10:08 AM Reporting Lab: [facility] [address] [facility] [address] Performing Lab: [facility] [address] [facility] [address] CONJ. BILIRUBIN 0.3 mg/dL 0-0.5 Feb 22, 2024 12:07 PM [facility] COMPREHENSIVE METABOLIC PANEL PLASMA Specimen Type: PLASMA Comment: No hemolysis noted. Ordering Provider: KASSI VICTOR Report Released Date/Time: Feb 10, 2024 10:08 AM Reporting Lab: [facility] [address] [place] [id number] Performing Lab: [address] [address] CREATININE 1.16 mg/dL 0.7-1.3 UREA NITROGEN 27.5 mg/dL H 9.0-25.0 GLUCOSE 94 mg/dL 72-99 SODIUM 139 meq/L 136-145 POTASSIUM 4.9 meq/L 3.5-5 CHLORIDE 103 meq/L 98-107 CARBON DIOXIDE 29 meq/L 22-31 CALCIUM 9.0 mg/dL 8.4-10.4 PROTEIN 7.0 g/dL 6-8.6 ALBUMIN 3.5 g/dL 3.4-5 TOTAL BILIRUBIN 0.7 mg/dL 0.2-1.2 ALKALINE PHOSPHATASE 130 U/L 40-150 AST/SGOT 33 U/L 5-34 ALT/SGPT 25 U/L 8-40 EGFR (CKD-EPI 2020) 65.3 >60 Feb 10, 2024 09:09 AM [facility] COMPREHENSIVE METABOLIC PANEL PLASMA Specimen Type: PLASMA Comment: No hemolysis noted. Ordering Provider: AIDN PHILIP Report Released Date/Time: Feb 08, 2024 03:02 PM Reporting Lab: [facility] [address] [facility] [phone] Performing Lab: [address] [address] CREATININE 0.97 mg/dL 0.7-1.3 UREA NITROGEN 21.8 mg/dL 9.0-25.0 GLUCOSE 96 mg/dL 72-99 SODIUM 137 meq/L 136-145 POTASSIUM 4.7 meq/L 3.5-5 CHLORIDE 104 meq/L 98-107 CARBON DIOXIDE 26 meq/L 22-31 CALCIUM 9.1 mg/dL 8.4-10.4 PROTEIN 6.9 g/dL 6-8.6 ALBUMIN 3.5 g/dL 3.4-5 TOTAL BILIRUBIN 1.0 mg/dL 0.2-1.2 ALKALINE PHOSPHATASE 137 U/L 40-150 AST/SGOT 37 U/L H 5-34 ALT/SGPT 23 U/L 8-40 EGFR (CKD-EPI 2020) 80.9 >60 Feb 10, 2024 09:09 AM [facility] CBC BLOOD Specimen Type: BLOOD No comment entered. Ordering Provider: ADIN PHILIP Report Released Date/Time: Feb 08, 2024 03:02 PM Reporting Lab: [place] [id number] [facility] [phone] Performing Lab: [address] [address] WBC 6.6 10*3/uL 3.6-11.2 RBC 4.93 10*6/uL 4.10-5.70 HGB 14.0 g/dL 13.1-16.8 HCT 44.2 38.2-48.4 MCV 89.7 fL 80.0-100.0 MCH 28.4 pg 27.0-34.0 MCHC 31.7 g/dL L 33.0-36.0 PLT 116 10*3/uL L 150-400 MPV 11.0 fL 7.5-11.2 RDW 16.5 H 11.8-15.1 LYMPHOCYTES, AUTO % 12 MONOCYTES, AUTO % 11 NEUTROPHILS, AUTO % 70 EOSINOPHILS, AUTO % 7 BASOPHILS, AUTO % 1 LYMPHOCYTES, ABSOLUTE 0.76 10*3/uL L 0.77- 4.50 MONOCYTES, ABSOLUTE 0.75 10*3/uL 0.19-0. 80 NEUTROPHILS, ABSOLUTE 4.62 10*3/uL 2.10- 8.00 EOSINOPHILS, ABSOLUTE 0.43 10*3/uL 0.00- 0.60 BASOPHILS, ABSOLUTE 0.04 10*3/uL 0.00-0. [address]T FRACTION 5.0 1.0-7.0 Social History: Smoking Status (Most current) and Tobacco Use (All prior to encounter date) This section includes the most current, and the historical, smoking and tobacco- related health factors from the [place] facility where the Encounter took place. Current Smoking Status This section includes the most current smoking, or tobacco-related health factor, from the [place] facility where the Encounter took place. Date/Time Current Smoking Status Comment Facil ity Nov 12, 2020 05:09 PM ORYX ADMIT TOBACCO SCREEN NO [facility] Tobacco Use History This section includes a history of the smoking, or tobacco-related health factors, that were collected on or before the date of the Encounter. The data comes from the [place] facility where the Encounter took place. Date/Time Smoking Status/Tobacco Use Comment F acility November 08, 2018 11:16 AM VA-TOBACCO FORMER USER [facility] November 08, 2018 11:16 AM VA-TOBACCO QUIT < 1 YEAR [facility] Jul 30, 2016 03:10 PM QUIT TOBACCO IN TH E LAST 12 MONTHS [facility] November 10, 2011 10:27 PM QUIT TOBACCO >12 M O & <7 YRS AGO [facility] Dec 28, 2005 08:38 AM CURRENT NON-TOBACC O USER-HX OF USE [facility] Dec 28, 2005 08:38 AM TOBACCO TERMINATION STAGE [facility] Jun 23, 2005 12:42 PM CURRENT TOBACCO USER [facility] Jun 23, 2005 12:42 PM SMOKER 1-2 PACKS [facility] Advance Directives: All historical and current Section Date Range: From patient's date of to the date document was created. This section includes ALL of a patient's completed or amended [place] Advance and Rescinded Directives. The entries below indicate that a directive exists for the patient, but an actual copy is not included with this document. The data comes from all [facility]. Date Advance Directives Provider Source Nov 17, 2022 ADVANCE DIRECTIVE MOISES ADHIKARI [facility] Jun 12, 2020 STATE-AUTHORIZED POR TABLE ORDERS ANNE CHATTERJEE [facility] October 21, 2018 RESCINDED ADVANCE DIRECTIVE SHERIF BETANCOURT Annabelle AIDAN [facility] November 12, 2011 ADVANCE DIRECTIVE DISCUSSION ANNLIA [facility] Radiology Reports: +/- 30 days of the encounter Radiology Reports For cases when an order for radiology services may have been completed prior to the date of the Encounter, the report list includes the Radiology Reports that were completed up to 30 days before dateof the Encounter. For cases when an order for radiology services may have been completed after the date of the Encounter, the report list also includes the Radiology Reports that were completed up to30 days after date of the Encounter. The data comes from all [place] treatment facilities. Date/Time Radiology Report Provider Source 2024 09:16 AM MRI ABDOMEN W/O&W CONT: NEISHA LUND [id number] M Exm Date: 2024@09:16 Req Phys: KASSI VICTOR Pat Loc: [facility] (Re Img Loc: [facility] Service: [address] [address] (Case [id number] COMPLETE) MRI ABDOMEN W/O&W CONT (MRI Detailed) CPT:08717 Contrast Media : Non-ionic Iodinated Reason for Study: Lr -3 lesion in seg 4b per [place] [facility] 08/2023 (uploaded) Clinical History: Responsible Attending: bryant rojas Attending Contact Number: [phone] Resident Contact Number: Does your patient have an implanted device or hardware? (Any prosthesis, implant, shrapnel or bullet fragments) No Does your patient have any of the following (Please check all that apply) [ ] Pacemaker [ ] AICD [ ] Neuro-stimulator [ ] Bone Growth Stimulator [ ] Pain Pump [ ] Insulin Pump [ ] Cochlear Implant [ ] Ocular Implant [ ] Aneurysm Clip [ ] Vascular Clip Any other type of implant, please explain Does your patient have a Coronary Stent: No Does your patient have a an artificial Heart Valve: No Were any of the following intravascular implanted devices inserted less than 6 weeks ago: Stent No IVC Filter No Embolization Coils No Is your patient's weight >350lbs or abdominal and shoulder width >60cm? No Does your patient have Renal Failure, Chronic or Acute Renal Disease? No If ordering a contrasted enhanced MRI, you will be required to complete the order for creatine eGFR which is located at the bottom of the MRI ordering screen. If your patient is 60 years or older, the patient will need a recent eGFR within 30 days prior to the exam. NOTE: Incorrectly answering these questions may result in a delay in the procedure. A patient with a device or implant does not automatically mean the patient cannot receive an MRI. If your patient will have difficulty with a confined space, the provider will be responsible for ordering a sedation prior to the procedure, or to order an alternative procedure. Report Status: Verified Date Reported: MAR 01, 2024 Date Verified: MAR 01, 2024 Piano Tuner E-Sig:/ES/FIDE CAMP Report: EXAMINATION: MRI ABDOMEN W/O&W CONT DATE: 2024 9:16 AM HISTORY: Lr -3 14 mm arterial phase enhancing lesion in seg 4b per [place] [facility] 08/2023 (uploaded). COMPARISON: CT abdomen of 10/13/2023, outside hepatic MRI of 09/08/2023. TECHNIQUE: Multiplanar, multisequence imaging of the liver and abdomen was performed according to the departmental protocol before and after the intravenous administration of Dotarem contrast. FINDINGS: Inferior Thorax: Trace right pleural effusion. Vasculature: Normal aortic enhancement; aortic caliber does not exceed 2.9 cm. Normal portal venous and hepatic venous enhancement for the contrast bolus timing. Conventional hepatic arterial origin. Liver: Persistent contour lobulation and internal parenchymal fibrosis compatible with the known history of cirrhosis. No arterial phase enhancing observations nor discrete masses are observed. In particular, the previously reported observation within segment IVb is not identified currently. Gallbladder: Normal. Bile Ducts: The intrahepatic and extrahepatic bile ducts are normal for the patient's stated age. Spleen: Stable splenomegaly, measuring 14.9 cm in length. Pancreas: Generalized atrophic changes. Kidneys: Stable small multiple left renal cortical nonenhancing cysts. Adrenal Glands: normal Bowel: Unremarkable Appendix: Not discretely visualized. Retroperitoneum and Mesentery: Persistent mild to moderate ascites. Musculoskeletal/Soft Tissues: Stable thin-walled low T2, high T1 nonenhancing mass along the inferolateral posterior left chest wall/flank with dependent nonenhancing debris, again likely representing a hematoma and measuring at least 10 x 6.8 x 3.5 cm. Lumbar serpentine scoliosis. Impression: No evidence of the previously reported 14 mm arterial phase enhancing observation within segment IVb. This may have represented a parenchymal vascular shunting phenomenon. No arterial phase enhancing observations nor discrete masses are currently evident. Stable appearing hepatic cirrhosis morphology, splenomegaly, moderate ascites and left posterolateral chest wall hematoma. Primary Interpreting Staff: FIDE CAMP, Diagnostic Radiologist (Piano Tuner) /FIDE RODRIGUEZ [facility] Encounter Notes: All associated encounter notes This section contains the clinical notes associated to the Encounter. Date/Time Encounter Note(s) Provider Source Feb 22, 2024 10:31 AM OPTOMETRY NOTE: LOCAL TITLE: OPTOMETRY NOTE STANDARD TITLE: OPTOMETRY NOTE DATE OF NOTE: FEB 22, 2024@10:31 ENTRY DATE: FEB 22, 2024@10:31:20 AUTHOR: NASEEM GRAYSON EXP COSIGNER: URGENCY: STATUS: COMPLETED Last seen 03/02/23 Reason for visit: *pt arrived > 20 min late for appt CC: 1. Stable vision and comfort of eyes rarely uses eye gtts and doens't feel the need to glasses pt is wearing last pair of specs Ocular meds: PFATs PRN Ocular ROS: 1. H/o Corneal Abrasion OS - 01/2022 2. Headaches - Resolved previously noted x 1-2 years; located centrally behind eyes/under eyes, however have not mostly resolved c use of allergy/sinus medications Known to ENT and started on new meds 12/2022 Baseline VF 01/2022 unreliable, however no gross neurologic defects and CVF FTFC 3. Cataracts OS>OD 4. Refractive error/Presbyopia Family OcHX: (-) blindness (-) glaucoma (-) AMD (-) RD Cardiovascular ROS: no change from problem & medication lists CPRS Problem list, medications and allergies reviewed: CPRS Serology for Diabetes GLUCOSE 96 mg/dL 02/10/2024 09:09 HGA1C 5.4 % 08/19/2023 11:39 Cardiovascular BP: 115/64 (01/12/2024 09:56) Pulse: 53 (01/12/2024 09:56) Neuro: Orientation: Normal Psych: Mood/Affect: Normal Depression/suicide ideation: NO VISUAL ACUITY With correction Distance Visual Acuity OD 20/20- OS 20/40-2 Pupils PERRL OU (-)APD Confrontation: FTFC OU Extra-Ocular Muscles Full OU (-)pain (-)diplopia Externals/adnexa: Unremarkable OU Refraction: 03/02/23 OD +3.75-0.01v816 20/20- OS +3.50-2.37l339 20/25 Add: + 2.50 Refraction: 02/22/24 OD +4.00-0.60x611 20/20 OS +3.75-1.13n265 20/25+ Add: + 2.50 PAL c transitions; AR coating SLIT LAMP EXAMINATION Lids/Lashes/Lacrimal 2+ MGD c inspissation and telangectasia Conjunctiva/Sclera White, inf scleral show/quiet OU Cornea Clear OU, 1+ guttata Ant Chamber 3/3 VH,Deep and quiet OU Iris Normal, (-)NVI OU Lens 1+ brunescent NS OS>OD Intraocular Pressures (Goldmann) 1 gtt fluress Date OD OS Time Meds 12/08/22 13 13 1412 none 02/02/23 14 13 1421 none 02/17/23 14 14 1055 none 03/02/23 13 13 1313 PA 1% OS 02/22/24 13 12 1048 none RETINAL EVALUATION 1 phenyleph 2.5%, 1 trop 1% OU DFE Dilated retinal exam Optic Nerve OD: 0.45 CDR Flat, pink, distinct (-)NVD OS: 0.35 CDR Flat, pink, distinct (-)NVD Vessels: 2/3 OU Macula: OD: Flat, intact (-)CSME OS: Flat, intact (-)CSME (+)ERM Posterior Pole: OD: (-)hemes (-)CWS (-)NVE OS: (-)hemes (-)CWS (-)NVE Periphery: OD: (-)holes, tears, RDs 360 OS: (-)holes, tears, RDs 360 OU: dense reticular degeneration, greatest temp Vitreous: synersis OU Assessment/Plan 02/22/24 1. MGD/THOMAS OU (+)RIOS, h/o K abrasion OS (-)staining on exam, low TF prism, inspissated glands pt ed to continue PFATs to prevent RCE 2. Cataracts OU mildly visually significant Defer cataract extraction until signs/sx indicate 3. Refractive error/Presbyopia increase in bva w/refraction Order new glasses Ed. pt on all findings RTC 1 year or PRN /es/ NASEEM GRAYSON, OD Staff Physician, Optometry Signed: 02/22/2024 11:11 NASEEM GRAYSON [facility]
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
--- OUTSIDE RECORDS SUMMARY | 2024-07-13 05:00 | XMS_ITS | Encounter Summary ---
Author Name [facility] [place] [facility] [place] [facility] [facility] [place] Address [address] [place] [address] Care Team Providers Care Host/Hostess Ground Name Role Phone TRUMAN GONZALEZ Primary Care [...] section includes the information on record at [place] for the Encounter. Date/Time Encounter Type Encounter Description Reason Provider Source Jul 13, 2024 10:00 AM OFFICE O/P EST SF 10 MIN ENDOCRINOLOGY ICD-10-CM M81.0 Age-related osteoporosis w/o current pathological fracture PATRICIA AGOSTO PH Epifanio Encounter Template Text not used by [place] Assessments - Encounter Diagnoses This section includes the primary and secondary diagnoses documented for the Encounter. Date/Time Primary/Secondary Diagnosis Diagnosis Name Provider Source Jul 13, 2024 10:22 AM PRIMARY Age-related osteoporosis w/o current pathological fracture MARTA AGOSTO [facility] Plan of Treatment: Future Appointments (+ 6 months) and Future Tests (+/- 45 days) The Plan of Treatment section includes future care activities for the patient from all [place] [facility]. This section includes future appointments and future orders which are active, pending or scheduled. Future Appointments This section includes appointments that were scheduled to occur 6 months from the date of the Encounter, up to a maximum of 20 appointments. The data comes from all [place] treatment facilities. Appointment Date/Time Appointment Type Appointme nt Facility Name Jul 18, 2024 02:00 PM AMBULATORY - MEDICINE [facility] Jul 24, 2024 08:30 AM AMBULATORY - NONE [facility] Aug 02, 2024 09:30 AM [facility] Aug 09, 2024 12:20 PM AMBULATORY - MEDICINE [facility] Aug 23, 2024 11:00 AM AM[facility]UL[facility]ORY - RE[facility]AB [facility] Sep 12, 2024 10:30 AM AMBULATORY - MEDICINE [facility] Sep 25, 2024 12:00 PM [facility] NONE [facility] October 18, 2024 09:00 AM AMBULATORY - NONE [facility] October 19, 2024 01:30 PM AM[facility]ULATORY - NONE [facility] November 08, 2024 01:30 PM AMBULATORY - MEDICINE [facility] Nov 24, 2024 02:00 PM AMBULATORY - MEDICINE [facility] Dec 01, 2024 09:15 AM AMBULATORY - MEDICINE [facility] Dec 11, 2024 01:40 PM AMBULATORY - MEDICINE [facility] Dec 20, 2024 09:30 AM AMBULATORY - MEDICINE [facility] Lab Results: +/- 30 days of the encounter This section includes the Chemistry and Hematology Lab Results on record with [place] for the patient. Radiology Reports and Pathology Reports are provided separately, in subsequent sections. Lab Results This section contains the Chemistry/Hematology Results that were resulted 30 days before or 30 daysafter the date of the Encounter. Date/Time Source Result Type Result - Unit Interpretation Reference Range Specimen Type Comment Jul 13, 2024 10:33 AM [facility] VITAMIN D, 25-HYDROXY SERUM Specimen Type: SERUM No comment entered. Ordering Provider: AIDAN AGOSTO Report Released Date/Time: Jul 13, 2024 10:14 AM Reporting Lab: [facility] [address] [facility] [id number] Performing Lab: [facility] [address] [facility] [address] VITAMIN D, 25-HYDROXY 42.5 ng/mL 30-96 Jul 13, 2024 10:33 AM [facility] BASIC METABOLIC PANEL PLASMA Specimen Type: PL ASMA Comment: No hemolysis noted. Ordering Provider: AIDAN AGOSTO Report Released Date/Time: Jul 13, 2024 10:14 AM Reporting Lab: [place] [id number] [facility] [id number] Performing Lab: [address] [address] CREATININE 0.83 mg/dL 0.7-1.3 UREA NITROGEN 25.3 mg/dL H 9.0-25.0 GLUCOSE 91 mg/dL 72-99 SODIUM 137 meq/L 136-145 POTASSIUM 5.1 meq/L H 3.5-5 CHLORIDE 105 meq/L 98-107 CARBON DIOXIDE 26 meq/L 22-31 CALCIUM 8.8 mg/dL 8.4-10.4 EGFR (CKD-EPI 2020) 90.1 >60 Vital Signs: All taken on the encounter date This section contains inpatient and outpatient Vital Signs collected on the date of the Encounter. Date/Time Temperature Pulse Blood Pressure Respiratory Rate SP02 Pain Height Weight Body Mass Index Source Jul 13, 2024 09:18 AM 97.7 59 108/61 16 95 6 177.3 24 [facility] Social History: Smoking Status (Most current) and Tobacco Use (All prior to encounter date) This section includes the most current, and the historical, smoking and tobacco- related health factors from the [place] facility where the Encounter took place. Current Smoking Status This section includes the most current smoking, or tobacco-related health factor, from the [place] facility where the Encounter took place. Date/Time Current Smoking Status Comment Facil arlyn Nov 12, 2020 05:09 PM ORYX ADMIT TOBACCO SCREEN NO [facility] Tobacco Use History This section includes a history of the smoking, or tobacco-related health factors, that were collected on or before the date of the Encounter. The data comes from the [place] facility where the Encounter took place. Date/Time Smoking Status/Tobacco Use Comment F acility November 08, 2018 11:16 AM VA-TOBACCO FORMER USER [facility] November 08, 2018 11:16 AM VA-TOBACCO QUIT < 1 YEAR [facility] Jul 30, 2016 03:10 PM QUIT TOBACCO IN TH E LAST 12 MONTHS [facility] November 10, 2011 10:27 PM QUIT TOBACCO >12 M O & <7 YRS AGO [facility] Dec 28, 2005 08:38 AM CURRENT NON-TOBACC O USER-HX OF USE [facility] Dec 28, 2005 08:38 AM TOBACCO TERMINATION STAGE [facility] Jun 23, 2005 12:42 PM CURRENT TOBACCO USER [facility] Jun 23, 2005 12:42 PM SMOKER 1-2 PACKS [facility] Advance Directives: All historical and current Section Date Range: From patient's date of to the date document was created. This section includes ALL of a patient's completed or amended [place] Advance and Rescinded Directives. The entries below indicate that a directive exists for the patient, but an actual copy is not included with this document. The data comes from all [place] facilities. Date Advance Directives Provider Source Nov 17, 2022 ADVANCE DIRECTIVE MOISES ADHIKARI [facility] Jun 12, 2020 STATE-AUTHORIZED POR TABLE ORDERS ANNE CHATTERJEE [facility] October 21, 2018 RESCINDED ADVANCE DIRECTIVE SHERIF BETANCOURT [facility] November 12, 2011 ADVANCE DIRECTIVE DISCUSSION LIA JUAREZ [facility] Radiology Reports: +/- 30 days of the [...] the Encounter. The data comes from all [place] treatment facilities. Date/Time Radiology Report Provider Source Jul 13, 2024 08:43 AM LDCT INCIDENTAL PU LMONARY NODULE: NEISHA FISH [id number] -[id number] M Exm Date: JUL 13, 2024@08:43 Req Phys: TRUMAN GONZALEZ Pat Loc: [facility]-ST CLR PACT 6 PCP (William'g Lo Img Loc: [facility]CT IMAGING [facility] Service: Unknown [facility], [address] [place] [address] (Case [id number] COMPLETE) LDCT INCIDENTAL PULMONARY NODULE (CT Detailed) CPT:25412 Reason for Study: lung nodule follow up, benign appearing in 2023 Clinical History: Report Status: Verified Date Reported: JUL 13, 2024 Date Verified: JUL 13, 2024 Microstrategy Architect E-Sig:/ZACHARY/ROEL DAWSON Report: EXAM: LDCT INCIDENTAL PULMONARY NODULE ADDITIONAL HISTORY: N/A COMPARISON: 08/19/2022 PROTOCOL: Follow-up protocol, low dose, non-contrast CT chest was performed in accordance with Lung-Rads v1.1. Additional coronal and sagittal reconstructions. MIP reconstructions were reviewed. Secondary computer-aided detection post-processing used. Findings: Lungs/airways: Patent central airways. Centrilobular emphysema is present. Essentially unchanged 7 mm right apical pulmonary nodule (5:53), 3.5 mm in subpleural space of the right upper lobe (5:86) and 5 mm nodule in subpleural space of the right lower lobe (5:288. A calcified granuloma is redemonstrated within the right posterior costophrenic angle. New scarring/subsegmental atelectasis adjacent to the large bulla in the right middle lobe anterior and posterior (5:246 and 5:248) Pleura: No pleural effusion. Nilda/mediastinum: Limited evaluation of bilateral nilda due to lack of IV contrast. No pathologically enlarged mediastinal lymphadenopathy. Redemonstrated right hilar calcified nodes which are unchanged Calcified mediastinal lymph nodes are noted. Coronary artery atherosclerotic calcifications are present. Upper abdomen: Redemonstrated cirrhotic liver with limited evaluation disease and degenerative IV contrast and low-dose CT. Musculoskeletal: Thoracic spondylosis. Bilateral gynecomastia is again noted. Impression: Grossly stable 7 mm right apical pulmonary nodule. Redemonstrated liver cirrhosis. Primary Interpreting Staff: ROEL DAWSON, RADIOLOGIST (Microstrategy Architect) /ROEL LUBIN [facility] Encounter Notes: All associated encounter notes This section contains the clinical notes associated to the Encounter. Date/Time Encounter Note(s) Provider Source Jul 17, 2024 11:57 AM PHYSICIAN LETTERS: LOCAL TITLE: TEST RESULT GENERAL LETTER ST STANDARD TITLE: PHYSICIAN LETTERS DATE OF NOTE: JUL 17, 2024@11:57 ENTRY DATE: JUL 17, 2024@11:57:38 AUTHOR: TRUMAN GONZALEZ COSIGNER: URGENCY: STATUS: COMPLETED [facility] [address] [place] [address] JUL 17, 2024 [address]ISHA FISH [address] [place], [place] [address] Dear Neisha Fish, I would like to update you on your recent test results. LOW DOSE CHEST CT SCAN Impression: Grossly stable 7 mm right apical pulmonary nodule. Redemonstrated liver cirrhosis. PLAN Please continue your treatment as we discussed during your visit. If you have any questions please call your pillowcase cleaner. I look forward to seeing you at your next clinic appointment. Thank you for choosing the [facility] for your healthcare. FUTURE APPOINTMENTS: 07/24/2024 08:30 [facility] CLR PACT PHONE NUTR 11/23/2024 10:00 [facility] CLR PACT 6 PCP 12/20/2024 09:30 [facility]-ENDOCRINOLOGY HEATING AND COOLING TECHNICIAN 4 03/14/2025 10:15 [facility]HEP LIVER Sincerely, NEISHA MCKINLEY MD, ARMIDA A [facility] Jul 13, 2024 12:58 PM PHYSICIAN LETTERS: LOCAL TITLE: TEST RESULT GENERAL LETTER STL STANDARD TITLE: PHYSICIAN LETTERS DATE OF NOTE: JUL 13, 2024@12:58 ENTRY DATE: JUL 13, 2024@12:58:40 AUTHOR: AIDAN AGOSTO EXP COSIGNER: URGENCY: STATUS: COMPLETED [facility] [address] [place] [address] JUL 13, 2024 NEISHA FISH [address] [place], [place] [address] Dear Neisha Fish, I would like to update you on your recent test results. CHEM 7 - This is important information about the current status of your kidneys, liver, and electrolyte and acid/base balance as well as of your blood sugar and blood proteins. SODIUM 137 mEq/L 07/13/2024 10:33 POTASSIUM 5.1 H mEq/L 07/13/2024 10:33 CHLORIDE 105 mEq/L 07/13/2024 10:33 UREA NITROGEN 25.3 H mg/dL 07/13/2024 10:33 CREATININE 0.83 mg/dL 07/13/2024 10:33 CALCIUM 8.8 mg/dL 07/13/2024 10:33 CARBON DIOXIDE 26 mEq/L 07/13/2024 10:33 GLUCOSE 91 mg/dL 07/13/2024 10:33 EGFR (CKD-EPI 2020) 90.1 07/13/2024 10:33 The results are similar to previous values and not a clinical concern. Although your calcium is within normal limits, it is on the lower end of normal. We would like you to increase your calcium/vitamin D supplementation from once daily to twice daily VITAMIN D - Helps promote the proper utilization of calcium and phosphorus, thereby producing proper bone maintenance. VITAMIN D, 25-HYDROXY 42.5 ng/mL 07/13/2024 10:33 These readings are within normal limits. FUTURE APPOINTMENTS: 07/24/2024 08:30 [facility]ST CLR PACT PHONE NUTR 11/23/2024 10:00 [facility]ST CLR PACT 6 PCP 12/20/2024 09:30 [facility]-ENDOCRINOLOGY HEATING AND COOLING TECHNICIAN 4 03/14/2025 10:15 [facility]HEP LIVER Sincerely, PRIYANK Hayward, MSN, RN Nurse Practitioner NEISHA FISH JOSEPH LUIS [facility] Jul 13, 2024 10:03 AM ENDOCRINOLOGY OUTPATIENT NOTE: LOCAL TITLE: ENDOCRINOLOGY OUTPATIENT FOLLOW UP [facility] STANDARD TITLE: ENDOCRINOLOGY OUTPATIENT NOTE DATE OF NOTE: JUL 13, 2024@10:03 ENTRY DATE: JUL 13, 2024@10:03:56 AUTHOR: AIDAN AGOSTO EXP COSIGNER: URGENCY: STATUS: COMPLETED ENDOCRINOLOGY OUTPATIENT FOLLOW UP [facility] Has ADDENDA ENDOCRINOLOGY FOLLOW-UP NOTE = Date of visit: JUL 13, 2024 SUBJECTIVE Source(s) of history: Patient and/or other Reliability of source(s): Reliable CHIEF COMPLAINT: is [id number] patient who is presenting for a follow-up for osteoporosis INITIAL HISTORY OF PRESENT ILLNESS: PREVIOUS PLAN: 1. Osteoporosis [facility] Hx of fracture - tolerating teriparatide at this time (therapy started in September 2022) -Plan to continue generic equivalent of Forteo daily the subcutaneous injection (currently has 10 refills left) -Denies falls and fractures since last meeting -Not taking calcium or vitamin D as he was instructed to hold last time -Plan to repeat DEXA next year -Return to clinic in 6 months -Advised to call should he experience any falls, fractures, or unexplained jaw pain Teriparatide (also known as forteo) 20mcg subcutaneously daily 2. History of hypercalcemia -'s calcium was 11.0 on 02/02/2023 -Repeat calcium on 03/10/2023 showed 10.1 -On the appointment with Makenna Troncoso NP he was instructed to hold calcium due to hypercalcemia -However, with repeat labs in 2023 calcium has been between 8.6 and 9.1 repeatedly -Should calcium levels come back in similar range, okay to restart calcium/vitamin D 600/401 tab daily INTERIM MEDICAL HISTORY: Emerson states that he has not missed a dose of teriparatide. No falls or fractures. states that he is taking calcium supplementation twice daily. denies joint pain and bone pain. Denies other side effects of nausea, vomiting, diarrhea, or any GI side effects as well. HISTORY: Medical History: 1) Microscopic Hematuria 2) Alcoholic cirrhosis (SNOMED CT [id number]) 3) Hernia of abdominal wall 4) Insomnia 5) Amputated below knee 6) Walking disability 7) Depression 8) Obstructive sleep apnea syndrome 9) Gastroesophageal reflux disease 10) Solitary nodule of lung 11) Legal problem 12) Moderate protein-calorie malnutrition (weight for age 60-74% of standard) 13) Anxiety ([facility] [id number]) 14) Benign Prostatic Hypertrophy With Outflow Obstruction ([facility] [id number]) 15) History of Polyp of Colon ([facility] [id number]) 16) Internal hemorrhoids 17) Vitamin D Deficiency ([facility] [id number]) 18) Allergic Rhinitis ([facility] [id number]) 19) Closed fracture of left acetabulum 20) Narcolepsy 21) AF - Atrial Fibrillation ([facility] [id number]) 22) PE - Pulmonary Embolism ([facility] [id number]) 23) H/O: surgery 24) Low Back Pain ([facility] [id number]) 25) Osteoporosis ([facility] [id number]) 26) Renal Impairment ([facility] [id number]) 27) Mild cognitive impairment 28) COPD - Chronic Obstructive Pulmonary Disease ([facility] [id number]) Surgical History: Noncontributory Family history: Noncontributory ROS: Negative except as mentioned in HPI. Active medications: Active Outpatient Medications (including Supplies): ALCOHOL PREP PAD USE/APPLY PAD TO AFFECTED AREA(S) ONCE A ACTIVE DAY NEEDED Indication: FOR WOUND CARE AMILORIDE HCL 5MG TAB TAKE TWO TABLETS BY MOUTH TWICE A ACTIVE DAY Indication: FOR HIGH BLOOD PRESSURE CALCIUM 600MG/VITAMIN D 400UNIT TAB TAKE 1 TABLET BY MOUTH ACTIVE ONCE A DAY WITH FOOD Indication: FOR CALCIUM SUPPLEMENTATION COLESTIPOL HCL 1GM TAB TAKE ONE TABLET BY MOUTH TWICE A ACTIVE DAY (OTHER MEDICATIONS SHOULD BE TAKEN 1 HOUR BEFORE OR 4 HOURS AFTER COLESTIPOL) Indication: FOR DIARRHEA CREON 36,000UNIT EC CAP TAKE 2 CAPSULES BY MOUTH THREE ACTIVE TIMES A DAY BEFORE MEALS TAKE WITH FOOD DIRECTED. Indication: FOR PANCREATIC INSUFFICIENCY FUROSEMIDE 80MG TAB TAKE ONE TABLET BY MOUTH EVERY MORNING ACTIVE Indication: FOR FLUID RETENTION (EDEMA) LOPERAMIDE HCL 2MG CAP TAKE ONE CAPSULE BY MOUTH FOUR ACTIVE TIMES A DAY NEEDED Indication: DIARRHEA NEEDLE,PEN 31G,8MM USE 1 NEEDLE UNDER THE SKIN ONCE A DAY ACTIVE USE WITH TERIPARATIDE PEN Indication: FOR INJECTION NUTRITION SUPL ENSURE PLUS/STRWBERRY LIQ TAKE 1 CANFUL BY ACTIVE MOUTH TWICE A DAY Indication: FOR NUTRITION/DIETARY SUPPLEMENTATION OLODATEROL/TIOTROP 2.5MCG/ACTUAT 60D INH INHALE 2 PUFFS BY ACTIVE ORAL INHALATION ONCE A DAY ADMINISTER AT SAME TIME EACH DAY Indication: FOR COPD PANTOPRAZOLE NA 40MG EC TAB TAKE ONE TABLET BY MOUTH EVERY ACTIVE MORNING BEFORE A MEAL . TAKE 30 MINUTES BEFORE MEAL(S) Indication: LUQ PAIN PSYLLIUM ORAL PWD MIX AND DRINK 1 TEASPOONFUL BY MOUTH ACTIVE ONCE A DAY MIX IN GLASS OF WATER/JUICE. FLAVOR SUBSTITUTIONS MAY/WILL OCCUR AND SPECIFIC VARIETIES WILL NOT BE PROVIDED. Indication: FOR FIBER SUPPLEMENTATION TERIPARATIDE 250MCG/ML (620MCG) 2.48ML INJECT 20MCG/0.08ML ACTIVE UNDER THE SKIN ONCE A DAY (USE WITH NEEDLE,PEN 31G,5/16IN - SEPARATE RX) Indication: FOR OSTEOPOROSIS Non-VA ASPIRIN 81MG EC TAB 81MG BY MOUTH ONCE A DAY ACTIVE Non-VA AZELASTINE 137MCG/SPRAY 200D NASAL INHL 1 SPRAY ACTIVE NOSTRIL(S) TWICE A DAY Non-VA CETIRIZINE HCL 10MG TAB 10MG BY MOUTH ONCE A DAY ACTIVE Non-VA ESCITALOPRAM OXALATE 20MG TAB 10MG BY MOUTH ONCE A ACTIVE DAY Non-VA FLUTICASONE PROP 50MCG 120D NASAL INHL 1 SPRAY ACTIVE NOSTRIL(S) ONCE A DAY Non-VA METOPROLOL TARTRATE 50MG TAB 25MG BY MOUTH TWICE A ACTIVE DAY Non-VA SENNOSIDES 8.6MG TAB 8.6MG BY MOUTH ONCE A DAY ACTIVE NEEDED 20 Total Medications I have reviewed current medications w/ Emerson at this visit. Efficacy and side effects of the medications were reviewed. Emerson denies questions, concerns, or problems with medications unless addressed in notes above. Allergies/ Intolerances: SULFA DRUGS, OXYBUTYNIN CHLORIDE OBJECTIVE --------- Records reviewed from consulting providers Vitals: VSD - Detailed Vitals Date Vital Measurement Qualifiers 07/13/2024 09:18 Temp F (C) 97.7 (36.5) Pulse 59 Respir 16 BP 108/61 Wt lbs (kg)[BMI] 177.3 (80.42)[24] Pain 6 POx (L/Min)(%) 95 PHYSICAL EXAM: General: no distress, wel-nourished, oriented x3, normal mood and affet Skin: good turgor, absent of rash, Hair: Normal texture and distribution Nails: Normal color, no deformities HEENT: normocephalic, atraumatic, no obvious masses or lesions, vision intact, hearing intact, mucous membrane moist without lesions, neck is supple without lesions or adenopathy Heart: S1, S2, regular R&R, no murmur or gallop Lungs: CTAB, regular, unlabored Abdomen: Bowel sounds present, no masses or tenderness Extremities:No amputations or deformities Musculoskeletal: normal gait with cane, no obvious defects with movementof extremities Neurologic: CN 2-12 normal, sensations to touch and proprioception normal Psych: oriented x3, memory intact, judgement, insight, and mood within normal limits Labs: CBC: WBC 6.6 10*3/uL 02/10/2024 09:09 RBC 4.93 [...] IMMATURE PLT FRACTION 5.0 % 02/10/2024 09:09 CMP: Collection DT Specimen Test Name Result Units [...] SERUM TSH 1.231 uIU/mL 0.47 - 5 Lipid: TRIGLYCERIDE 65 mg/dL 08/19/2023 11:39 CHOLESTEROL 140 mg/dL 08/19/2023 11:39 HDL(New) 44 mg/dL 08/19/2023 11:39 CALCULATED LDL 83 mg/dL 08/19/2023 11:39 TSH: TSH 1.231 uIU/mL 08/19/2023 11:39 A1C:SLT - Lab Tests Selected Collection DT Specimen Test Name Result Units Ref Range 08/19/2023 11:39 BLOOD HGA1C 5.4 % 4.0 - 6.0 08/29/2021 12:52 BLOOD HGA1C 5.0 % 4.0 - 6.0 10/17/2019 15:19 BLOOD HGA1C 5.1 % 4.0 - 6.0 Glucose tolerance test: No results shown Imaging results: ASSESSMENT & PLAN 1. osteoporosis -Currently tolerating teriparatide at this time. He started therapy in September 2022, and will end therapy in September of this year 2024 - Will Plan for DEXA scan to be performed in October of this year - denies falls and fractures since last meeting - restarted calcium/vit d supplement - RTC in 6 months -'s mouth is free of any lesions with notable dental work having been done in the past. states he follows with his dentist at least twice yearly -Repeat calcium and vitamin D today -Advised to call should he experience any falls, fractures, or unexplained jaw pain Teriparatide (also known as forteo) 20mcg subcutaneously daily Therapy to last for 2 years Contraindications: hypersensitivity to therapy, hyperparathyroidism, , Side effects: Hypercalcemia (cutanseous calcification, urolithiasis) Cardiovascular: Orthostatic Hypotension, syncope, angina, dizziness GI: nausea, vomiting, gastritis, dyspepsia Psych/ neuro: anxiety, depression, headache, insomnia, vertigo Musculoskeletal: joint pain, lower limb cramping Respiratory: Dyspnea, pharyngitis, pneumonia, rhinitis 2. History of hypercalcemia -'s calcium was 11.0 on 02/02/2023 -Repeat calcium on 03/10/2023 showed 10.1 -On the appointment with Makenna Troncoso NP he was instructed to hold calcium due to hypercalcemia -However, with repeat labs in 2023 calcium has been between 8.6 and 9.1 repeatedly -Should calcium levels come back in similar range, okay to restart calcium/vitamin D 600/401 tab daily Education about next steps reviewed with patient. All additional questions answered during visit today Time spent with patient/caregiver: I personally spent 15 minutes today. this time includes preparing to see the patient (e.g. reviewing chart, lab results, medications, etc..), obtaining and/or reviewing history, performing medically necessary and appropriate examination/evaluation, counseling and educating the patient/caregiver, ordering medications, tests, or procedures, documenting in the patient record, and communicating results to the patient/caregiver. RTC: - Order placed, patient to be called for scheduling at later date Pt verbalized understanding and had no further questions during today's meeting Patient case discussed with Endocrine staff /zachary/ PRIYANK Hayward, MSN, RN Nurse Practitioner Signed: 07/13/2024 10:22 10/30/2024 ADDENDUM STATUS: COMPLETED attempted to call to review DEXA... left message to call back to discuss next steps after teriparatide (alendronate or reclast if elligible) /zachary/ PRIYANK Hayward, MSN, RN Nurse Practitioner Signed: 10/30/2024 14:27 AIDAN AGOSTO [facility]
--- OUTSIDE RECORDS SUMMARY | 2024-07-26 06:30 | XMS_ITS | Encounter Summary ---
Author Name [facility] [place] [facility] [place] Address [address], [place] [address] Care Team Providers Care Senior Laboratory Technician Name Role Phone TRUMAN GONZALEZ Primary Care [...] section includes the information on record at [place] for the Encounter. Date/Time Encounter Type Encounter Description Reason Pro vider Source Jul 26, 2024 11:30 AM Outpatient Encounter PM&RS [facility] Encounter Template Text not used by [place] Plan of Treatment: Future Appointments (+ 6 months) and Future Tests (+/- 45 days) The Plan of Treatment section includes future care activities for the patient from all [place] treatmentfacilities. This section includes future appointments and future orders which are active, pending or scheduled. Future Appointments This section includes appointments that were scheduled to occur 6 months from the date of the Encounter, up to a maximum of 20 appointments. The data comes from all [place] treatment facilities. Appointment Date/Time Appointment Type Appointme nt Facility Name Aug 02, 2024 09:30 AM AMBULATORY - REHAB [facility]IC[facility] Aug 09, 2024 12:20 PM AMBULATORY - MEDICINE [facility] Aug 23, 2024 11:00 AM AMBULATORY - REHAB MEDICIN E [facility] Sep 12, 2024 10:30 AM AMBULATORY - MEDICINE . AIDAN [facility] Sep 25, 2024 12:00 PM [facility]ULATORY [facility] NONE [facility] October 18, 2024 09:00 AM AMBULATORY - NONE [facility] October 19, 2024 01:30 PM AMBULATORY - NONE [facility] November 08, 2024 01:30 [facility] Nov 24, 2024 02:00 PM AMBULATORY - MEDICINE [facility] Dec 01, 2024 09:15 AM AMBULATORY - MEDICINE [facility] Dec 11, 2024 01:40 PM AMBULATORY - MEDICINE [facility] Dec 20, 2024 09:30 AM AMBULATORY - MEDICINE [facility] Jan 18, 2025 09:30 AM AMBULATORY - SURGERY [facility] Jan 18, 2025 10:51 AM AMBULATORY - MEDICINE [facility] Jan 22, 2025 03:30 PM AMBULATORY - MEDICINE [facility] Lab Results: +/- 30 days of the encounter This section includes the Chemistry and Hematology Lab Results on record with [facility] for the [facility]. Radiology Reports and Pathology Reports are provided separately, in subsequent sections. Lab Results This section contains the Chemistry/Hematology Results that were resulted 30 days before or 30 daysafter the date of the Encounter. Date/Time Source Result Type Result - Unit Interpretation Reference Range Specimen Type Comment Jul 13, 2024 10:33 AM [facility] VITAMIN D, 25-HYDROXY SERUM Specimen Type: SERUM No comment entered. Ordering Provider: AIDAN AGOSTO Report Released Date/Time: Jul 13, 2024 10:14 AM Reporting Lab: [place] [address] [address] [facility] [id number] Performing Lab: [address] [id number] VITAMIN D, 25-HYDROXY 42.5 ng/mL 30-96 Jul 13, 2024 10:33 AM [facility] BASIC METABOLIC PANEL PLASMA Specimen Type: PL ASMA Comment: No hemolysis noted. Ordering Provider: AIDAN AGOSTO Report Released Date/Time: Jul 13, 2024 10:14 AM Reporting Lab: [facility] [address] [facility] [address] Performing Lab: [facility] [address] [facility] [address] CREATININE 0.83 mg/dL 0.7-1.3 UREA NITROGEN 25.3 mg/dL H 9.0-25.0 GLUCOSE 91 mg/dL 72-99 SODIUM 137 meq/L 136-145 POTASSIUM 5.1 meq/L H 3.5-5 CHLORIDE 105 meq/L 98-107 CARBON DIOXIDE 26 meq/L 22-31 CALCIUM 8.8 mg/dL 8.4-10.4 EGFR (CKD-EPI 2020) 90.1 >60 Social History: Smoking Status (Most current) and Tobacco Use (All prior to encounter date) This section includes the most current, and the historical, smoking and tobacco- related health factors from the [place] facility where the Encounter took place. Current Smoking Status This section includes the most current smoking, or tobacco-related health factor, from the [place] facility where the Encounter took place. Date/Time Current Smoking Status Comment Melissa ity May 27, 2022 03:30 PM VA-TOBACCO FORMER USER [facility] Tobacco Use History This section includes a history of the smoking, or tobacco-related health factors, that were collected on or before the date of the Encounter. The data comes from the [place] facility where the Encounter took place. Date/Time Smoking Status/Tobacco Use Comment F acility May 27, 2022 03:30 PM VA-TOBACCO QUIT 15 YRS OR MORE [facility] Feb 06, 2016 08:46 AM CURRENT TOBACCO USER [facility] Feb 06, 2016 08:46 AM TOBACCO MEDS OFFER ED BUT DECLINED [facility] Feb 26, 2015 12:24 PM LIFETIME NON-USER OF TOBACCO [facility] Advance Directives: All historical and current Section Date Range: From patient's date of to the date document was created. This section includes ALL of a patient's completed or amended [place] Advance and Rescinded Directives. The entries below indicate that a directive exists for the patient, but an actual copy is not included with this document. The data comes from all [place] facilities. Date Advance Directives Provider Source Nov 17, 2022 ADVANCE DIRECTIVE ZEYNEPMOISES DE LA PAZ [facility] Jun 12, 2020 STATE-AUTHORIZED POR TABLE ORDERS ANNE CHATTERJEE [facility] October 21, 2018 RESCINDED ADVANCE DIRECTIVE SHERIF BETANCOURT [facility] November 12, 2011 ADVANCE DIRECTIVE DISCUSSION LIA JUAREZ [facility] Radiology Reports: +/- 30 days of [...] the Encounter. The data comes from all [place] treatment facilities. Date/Time Radiology Report Provider Source Jul 13, 2024 08:43 AM LDCT INCIDENTAL PU LMONARY NODULE: NEISHA LUND [id number] -[id number] M Exm Date: JUL 13, 2024@08:43 Req Phys: TURMAN GONZALEZ Pat Loc: [facility] CLR PACT 6 PCP ([facility] Img Loc: [facility] Service: Unknown [facility] [address] [place] [address] (Case [id number] COMPLETE) LDCT INCIDENTAL PULMONARY NODULE (CT Detailed) CPT:11352 Reason for Study: lung nodule follow up, benign appearing in 2023 Clinical History: Report Status: Verified Date Reported: JUL 13, 2024 Date Verified: JUL 13, 2024 Clerk Rating E-Sig:/ES/ROEL DAWSON Report: EXAM: LDCT INCIDENTAL PULMONARY NODULE [...] cirrhosis. Primary Interpreting Staff: ROEL DAWSON, RADIOLOGIST (Clerk Rating) /ROEL LUBIN [facility]
--- OUTSIDE RECORDS SUMMARY | 2024-08-09 07:20 | XMS_ITS | Encounter Summary ---
Author Name [facility] [facility] [place] Address [address] [place] [address] Care Team Providers Care Online Merchandiser Name Role Phone TRUMAN GONZALEZ Primary Care [...] section includes the information on record at [place] for the Encounter. Date/Time Encounter Type Encounter Description Reason Pro vider Source Aug 09, 2024 12:20 PM OFFICE O/P EST MOD 30 MIN GASTROENTEROLOGY ICD-10-CM K86.1 Other chronic pancreatitis ADIN PHILIP Encounter Template Text not used by [place] Assessments - Encounter Diagnoses This section includes the primary and secondary diagnoses documented for the Encounter. Date/Time Primary/Secondary Diagnosis Diagnosis Name Provider Source Aug 09, 2024 01:28 PM PRIMARY Other chronic pancreatitis YOMAIRA PHILIP [facility] Aug 09, 2024 01:28 PM SECONDARY Depression, unspecified YOMAIRA PHILIP [facility] Aug 09, 2024 01:28 PM SECONDARY Generalized abdominal pain YOMAIRA PHILIP [facility] Aug 09, 2024 01:28 PM SECONDARY Mild cognitive impairment of uncertain or unknown etiology YOMAIRA PHILIP [facility] Plan of Treatment: Future Appointments (+ 6 months) and Future Tests (+/- 45 days) The Plan of Treatment section includes future care activities for the [facility] This section includes future appointments and future orders which are active, pending or scheduled. Future Appointments This section includes appointments that were scheduled to occur 6 months from the date of the Encounter, up to a maximum of 20 appointments. The data comes from all [place] treatment facilities. Appointment Date/Time Appointment Type Appointme nt Facility Name Aug 23, 2024 11:00 AM AMBULATORY - REHAB MEDICIN E [facility] Sep 12, 2024 10:30 AM AMBULATORY - MEDICINE [facility] Sep 25, 2024 12:00 PM AMBULATORY - NONE [facility] October 18, 2024 09:00 AM AMBULATORY - NONE [facility] October 19, 2024 01:30 PM AMBULATORY - NONE [facility] November 08, 2024 01:30 PM AMBULATORY - MEDICINE [facility] Nov 24, 2024 02:00 PM AMBULATORY - MEDICINE [facility] Dec 01, 2024 09:15 AM AMBULATORY - MEDICINE [facility] Dec 11, 2024 01:40 PM AMBULATORY - MEDICINE [facility] Dec 20, 2024 09:30 AM AMBULATORY - MEDICINE [facility] Jan 18, 2025 09:30 AM AMBULATORY - SURGERY [facility] Jan 18, 2025 10:51 AM AMBULATORY - MEDICINE [facility] Jan 22, 2025 03:30 PM AMBULATORY - MEDICINE [facility] Jan 26, 2025 11:00 AM AM[facility]ULATORY - NONE [facility] Jan 30, 2025 03:58 AM AMBULATORY - MEDICINE [facility] Feb 01, 2025 03:30 PM AMBULATORY - MEDICINE [facility] Lab Results: +/- 30 days of the encounter This section includes the Chemistry and Hematology Lab Results on record with [place] for the patient. Radiology Reports and Pathology Reports are provided separately, in subsequent sections. Lab Results This section contains the Chemistry/Hematology Results that were resulted 30 days before or 30 daysafter the date of the Encounter. Date/Time Source Result Type Result - Unit Interpretation Reference Range Specimen Type Comment Jul 13, 2024 10:33 AM [facility] VITAMIN D, 25-HYDROXY SERUM Specimen Type: SERUM No comment entered. Ordering Provider: AIDAN AGOSTO Report Released Date/Time: Jul 13, 2024 10:14 AM Reporting Lab: [address] [id number] Performing Lab: [address] [address] VITAMIN D, 25-HYDROXY 42.5 ng/mL 30-96 Jul 13, 2024 10:33 AM [facility] BASIC METABOLIC PANEL PLASMA Specimen Type: PL ASMA Comment: No hemolysis noted. Ordering Provider: AIDAN AGOSTO Report Released Date/Time: Jul 13, 2024 10:14 AM Reporting Lab: [address] [address] Performing Lab: [address] [address] CREATININE 0.83 mg/dL 0.7-1.3 UREA NITROGEN 25.3 [...] Pain Height Weight Body Mass Index Source Aug 09, 2024 12:04 PM 97.5 64 118/63 18 96 7 177.8 24 [facility] Social History: Smoking Status (Most current) and Tobacco Use (All prior to encounter date) This section includes the most current, and the historical, smoking and tobacco- related health factors from the [place] facility where the Encounter took place. Current Smoking Status This section includes the most current smoking, or tobacco-related health factor, from the [place] facility where the Encounter took place. Date/Time Current Smoking Status Comment Melissa stoddard Nov 12, 2020 05:09 PM ORYX ADMIT TOBACCO SCREEN NO [facility] Tobacco Use History This section includes a history of the smoking, or tobacco-related health factors, that were collected on or before the date of the Encounter. The data comes from the [place] facility where the Encounter took place. Date/Time Smoking Status/Tobacco Use Comment F acility November 08, 2018 11:16 AM VA-TOBACCO FORMER USER [facility] November 08, 2018 11:16 AM VA-TOBACCO QUIT < 1 YEAR [facility] Jul 30, 2016 03:10 PM QUIT TOBACCO IN TH E LAST 12 MONTHS [facility] November 10, 2011 10:27 PM QUIT TOBACCO >12 M O & <7 YRS AGO [facility] Dec 28, 2005 08:38 AM CURRENT NON-TOBACC O USER-HX OF USE [facility] Dec 28, 2005 08:38 AM TOBACCO TERMINATION STAGE [facility] Jun 23, 2005 12:42 PM CURRENT TOBACCO USER [facility] Jun 23, 2005 12:42 PM SMOKER 1-2 PACKS [facility] Advance Directives: All historical and current Section Date Range: From patient's date of to the date document was created. This section includes ALL of a patient's completed or amended [place] Advance and Rescinded Directives. The entries below indicate that a directive exists for the patient, but an actual copy is not included with this document. The data comes from all [facility]. Date Advance Directives Provider Source Nov 17, 2022 ADVANCE DIRECTIVE MOISES ADHIKARI [facility] Jun 12, 2020 STATE-AUTHORIZED POR TABLE ORDERS ANNE CHATTERJEE [facility] October 21, 2018 RESCINDED ADVANCE DIRECTIVE SHERIF BETANCOURT [facility] November 12, 2011 ADVANCE DIRECTIVE DISCUSSION LIA JUAREZ [facility] Radiology Reports: +/- 30 days of [...] the Encounter. The data comes from all [place] treatment facilities. Date/Time Radiology Report Provider Source Jul 13, 2024 08:43 AM LDCT INCIDENTAL PU LMONARY NODULE: NEISHA FISH [id number] -[id number] M Exm Date: JUL 13, 2024@08:43 Req Phys: TRUMAN GONZALEZ Pat Loc: [facility] CLR PACT 6 PCP (William[facility] Img Loc: [facility] IMAGING Service: Unknown [facility] [address] [place] [address] (Case [id number] COMPLETE) LDCT INCIDENTAL PULMONARY NODULE (CT Detailed) CPT:35517 Reason for Study: lung nodule follow up, benign appearing in 2023 Clinical History: Report Status: Verified Date Reported: JUL 13, 2024 Date Verified: JUL 13, 2024 Still Cleaner Tube E-Sig:/ES/ROEL DAWSON Report: EXAM: LDCT INCIDENTAL PULMONARY [...] cirrhosis. Primary Interpreting Staff: ROEL DAWSON, RADIOLOGIST (Still Cleaner Tube) /ROEL LUBIN [facility] Encounter Notes: All associated encounter notes This section contains the clinical notes associated to the Encounter. Date/Time Encounter Note(s) Provider Source Aug 22, 2024 07:15 AM ADDENDUM: LOCAL TITLE: Addendum STANDARD TITLE: ADDENDUM DATE OF NOTE: AUG 22, 2024@07:15:35 ENTRY DATE: AUG 22, 2024@07:15:36 AUTHOR: ADIN PHILIP EXP COSIGNER: URGENCY: STATUS: COMPLETED GI note Patient called to update antidepressant medication regimen: escitolpram 10 mg once daily (takes in AM) amitriptyline 10mg once daily (takes in PM) Suspect some of the symptoms he has been experiencing are that of depression in the setting of his chronic illnesses. Will alert PCP about possibility of increasing escitalopram dosing. Thanks/KIM /zachary/ ADIN PHILIP Gastroenterology Signed: 08/22/2024 07:17 Receipt Acknowledged By: 09/01/2024 16:35 /zachary/ TRUMAN GONZALEZ MD --- Original Document --- 08/09/24 GASTROENTEROLOGY OUTPATIENT FOLLOW UP STL: CC: Pt. is a 79 y/o male here for f/u of bowel irregularity/chronic pancreatitis/ESLD, etc. He has daily abdominal pain up to 5x per day. It is sporadic and can last up to 20 minutes. Sometimes it is triggered by eating and other times, it is not. He denies noctural symptoms. There have been no alarm features though he reports a slight increase in abdominal girth (bedside US today reveals some ascites but not enough to tap). He has some mental slowing, increased irritability, etc. The patient denies steatorrhea or weight loss. He has gained some weight. His appetite is decreased and he snacks in the evenings. (does not take a creon with those). He has a known abdominal wall hernia that at times is more tender to touch. There has been no redness or s/s of incarceration and he has been advised regarding the risks of surgical repair in the setting of ESLD. The patient has had diarrhea since at least 2018 and I suspect a component of IBS. Dicyclomine is not making a significant impact on symptoms of pain. ROS: Review of systems is as per HPI and additionally notable for Constitutional: No fever, No weakness/ fatigue Cardiovascular: No chest pain, No palpitations Respiratory: No shortness of breath, No cough Genitourinary: No dysuria, No polyuria Neurology: No headache, No tremors Musculoskeletal: No joint pain, No back pain Skin: No rash, No itching Psychiatric: No anxiety, No depression 10-point ROS is otherwise negative. MEDICATIONS: reviewed and pertinent for Active Outpatient Medications (excluding Supplies): Issue Date Status Last Fill Active Outpatient Medications Refills Expiration 1) AMILORIDE HCL 5MG TAB Qty: 360 for 90 days ACTIVE Issue: 02/15/24 Sig: TAKE TWO TABLETS BY MOUTH TWICE A DAY Refills: 1 Last : 08/03/24 Indication: FOR HIGH BLOOD PRESSURE Expr : 02/15/25 2) CALCIUM 600MG/VITAMIN D 400UNIT TAB Qty: 120 ACTIVE Issue: 07/13/24 for 60 days Sig: TAKE 1 TABLET BY MOUTH Refills: 2 Last : 07/16/24 TWICE A DAY WITH FOOD Expr : 07/14/25 Indication: FOR CALCIUM SUPPLEMENTATION 3) COLESTIPOL HCL 1GM TAB Qty: 60 for 30 days ACTIVE Issue: 09/27/23 Sig: TAKE ONE TABLET BY MOUTH TWICE A DAY Refills: 0 Last : 07/18/24 (OTHER MEDICATIONS SHOULD BE TAKEN 1 HOUR Expr : 09/27/24 BEFORE OR 4 HOURS AFTER COLESTIPOL) Indication: FOR DIARRHEA 4) CREON 36,000UNIT EC CAP Qty: 600 for 90 days ACTIVE Issue: 01/10/24 Sig: TAKE 2 CAPSULES BY MOUTH THREE TIMES A Refills: 0 Last : 08/14/24 DAY BEFORE MEALS TAKE WITH FOOD Expr : 01/10/25 DIRECTED. Indication: FOR PANCREATIC INSUFFICIENCY 5) FLUTICASONE PROP 50MCG 120D NASAL INHL Qty: ACTIVE Issue: 08/08/24 1 for 30 days Sig: INSTILL 1 SPRAY IN Refills: 11 Last : 08/08/24 NOSTRIL(S) ONCE A DAY (MUST BE USED Expr : 08/09/25 DIRECTED FOR MINIMUM OF 21 DAYS TO PROVIDE ADEQUATE BENEFITS) Indication: FOR CHRONIC RHINOSINUSITIS 6) FUROSEMIDE 80MG TAB Qty: 90 for 90 days Sig: ACTIVE Issue: 02/15/24 TAKE ONE TABLET BY MOUTH EVERY MORNING Refills: 1 Last : 08/03/24 Indication: FOR FLUID RETENTION (EDEMA) Expr : 02/15/25 7) IPRATROPIUM BR 0.03% NASAL SPRAY Qty: 30 for ACTIVE Issue: 08/08/24 30 days Sig: USE 2 SPRAYS INTO NOSTRIL(S) Refills: 11 Last : 08/08/24 THREE TIMES A DAY Expr : 08/09/25 Indication: FOR ALLERGIC RHINITIS 8) LOPERAMIDE HCL 2MG CAP Qty: 360 for 90 days ACTIVE Issue: 01/10/24 Sig: TAKE ONE CAPSULE BY MOUTH FOUR TIMES A Refills: 1 Last : 02/11/24 DAY NEEDED Expr : 01/10/25 Indication: DIARRHEA 9) NUTRITION SUPL ENSURE PLUS/CAIT LIQUID Qty: ACTIVE Issue: 07/24/24 24 for 24 days Sig: TAKE 1 CANFUL BY MOUTH Refills: 2 Last : 07/24/24 ONCE A DAY Expr : 07/25/25 Indication: FOR NUTRITION/DIETARY SUPPLEMENTATION 10) NUTRITION SUPL ENSURE PLUS/STRWBERRY LIQ ACTIVE Issue: 07/24/24 Qty: 24 for 24 days Sig: TAKE 1 CANFUL BY Refills: 2 Last : 07/24/24 MOUTH ONCE A DAY Expr : 07/25/25 Indication: FOR NUTRITION/DIETARY SUPPLEMENTATION 11) OLODATEROL/TIOTROP 2.5MCG/ACTUAT 60D INH ACTIVE Issue: 03/22/24 Qty: 3 for 90 days Sig: INHALE 2 PUFFS BY Refills: 2 Last : 07/04/24 ORAL INHALATION ONCE A DAY ADMINISTER AT Expr : 03/23/25 SAME TIME EACH DAY Indication: FOR COPD 12) PANTOPRAZOLE NA 40MG EC TAB Qty: 90 for 90 ACTIVE Issue: 02/08/24 days Sig: TAKE ONE TABLET BY MOUTH EVERY Refills: 0 Last : 06/26/24 MORNING BEFORE A MEAL . TAKE 30 MINUTES Expr : 02/08/25 BEFORE MEAL(S) Indication: LUQ PAIN 13) TERIPARATIDE 250MCG/ML (620MCG) 2.48ML Qty: ACTIVE Issue: 11/01/23 1 for 28 days Sig: INJECT 20MCG/0.08ML UNDER Refills: 3 Last : 07/10/24 THE SKIN ONCE A DAY (USE WITH NEEDLE,PEN Expr : 11/01/24 31G,5/16IN - SEPARATE RX) Indication: FOR OSTEOPOROSIS Start Date Active Non-VA Medications Status Stop Date 1) Non-VA ASPIRIN 81MG EC TAB SiMG BY ACTIVE MOUTH ONCE A DAY 2) Non-VA AZELASTINE 137MCG/SPRAY 200D NASAL ACTIVE INHL Si SPRAY NOSTRIL(S) TWICE A DAY 3) Non-VA CETIRIZINE HCL 10MG TAB SiMG BY ACTIVE MOUTH ONCE A DAY 4) Non-VA ESCITALOPRAM OXALATE 20MG TAB Sig: ACTIVE 10MG BY MOUTH ONCE A DAY 5) Non-VA FLUTICASONE PROP 50MCG 120D NASAL ACTIVE INHL Si SPRAY NOSTRIL(S) ONCE A DAY 6) Non-VA METOPROLOL TARTRATE 50MG TAB Sig: ACTIVE 25MG BY MOUTH TWICE A DAY 7) Non-VA SENNOSIDES 8.6MG TAB Si.6MG BY ACTIVE MOUTH ONCE A DAY NEEDED 20 Total Medications Vitals: 97.5 F [36.4 C] (08/09/2024 12:04)64 (08/09/2024 12:04)118/63 (08/09/2024 12:04)18 (08/09/2024 12:04) Measurement DT POx (L/MIN)(%) 08/09/2024 12:04 96 07/13/2024 09:18 95 04/07/2024 10:24 98 03/22/2024 10:24 98 24.2 General-NAD, muscle wasting of ESLD HEENT-mucous membranes moist and without lesion or exudate, no scleral icterus CV-rrr no m/r/g/t Lung-cta jassi, symmetric movement Abd-abd wall hernia to left of umbilicus; non-reducible; diffuse tenderness to palpation of abdomen; scant ascites Skin-no rash or jaundice INTERVAL TESTS: LABS: Hgb HGB 14.0 g/dL 02/10/2024 09:09 Hct 44.2 % (02/10/24 09:09) MCV 89.7 fL (02/10/24 09:09) Plt PLT 116 L 10*3/uL 02/10/2024 09:09 Iron, TIBC No IRON & TIBC EO data found Andrew No FERRITIN EO data found BUN 25.3 mg/dL H (07/13/24 10:33) Cr CREATININE 0.83 mg/dL 07/13/2024 10:33 Alb ALBUMIN 3.5 g/dL 02/22/2024 12:07 Ca 8.8 mg/dL (07/13/24 10:33) TSH TSH 1.231 uIU/mL 08/19/2023 11:39 Vit D VITAMIN D, 25-HYDROXY 42.5 ng/mL 07/13/2024 10:33 ALT 25 U/L (02/22/24 12:07) AST 33 U/L (02/22/24 12:07) TB TOTAL BILIRUBIN 0.7 mg/dL 02/22/2024 12:07 AP ALKALINE PHOSPHATASE 130 U/L 02/22/2024 12:07 INR INR VALUE 1.2 INR 09/22/2023 10:44 PROTIME 13.8 H sec 09/22/2023 10:44 LAB CUMULATIVE SELECTED 2 Collection DT Spec CHOL TRIG CalcLDL HDL a 08/19/2023 11:39 PLASM 140 65 83 44 b 11/12/2022 12:21 PLASM 139 95 74 46 --STATUS-- --DUE DATE-- --LAST DONE-- CELIAC DISEASE N/A No data available for: IMMUNOGLOBULIN A (PB-MA) TTG-IGA SLT - Lab Tests Selected Collection DT Specimen Test Name Result Units Ref Range 08/19/2023 11:39 BLOOD HGA1C 5.4 % 4.0 - 6.0 IMAGING: Impression for CHEST X-RAY, 2 VIEWS, 09/27/23, case [id number] No active pulmonary disease. Views Impression for CT ABDOMEN AND PELVIS W/CONTRAST, 10/13/23, case [id number] 1. *Numbering interval significant increase in the prominent ascites, with extension of the fluid into a left paramedian ventral hernia, likely representing the patient's palpable finding in this region. 2. New focal fluid collection within the right inguinal region, located between the inguinal canal and common femoral vein, likely fluid within a femoral hernia. 3. Persistent previous imaging features of portal hypertension and hepatic cirrhosis, including splenomegaly. 4. New small right pleural effusion. 5. Stable presumed hematoma/seroma superficial to the posterolateral left ninth and 10th ribs. Impression for US ABDOMEN LTD, SINGLE ORG OR QUADRANT, 12/30/23, case [id number] No evidence of hepatocellular carcinoma or other significant hepatic observations. US category: US-1. Visualization score: VIS-A. Persistent sonographic features of cirrhosis and portal venous hypertension with ascites. Date Procedure CPT Status Case # 10/13/2023 CT ABDOMEN AND PELVIS W/CONTRAST [id number] Verified 2294 1. *Numbering interval significant increase in the prominent ascites, with extension of the fluid into a left paramedian ventral hernia, likely representing the patient's palpable finding in this region. 2. New focal fluid collection within the right inguinal region, located between the inguinal canal and common femoral vein, likely fluid within a femoral hernia. 3. Persistent previous imaging features of portal hypertension and hepatic cirrhosis, including splenomegaly. 4. New small right pleural effusion. 5. Stable presumed hematoma/seroma superficial to the posterolateral left ninth and 10th ribs. No data available for: CT ABDOMEN AND PELVIS W/O CONTRAST CT ABDOMEN AND PELVIS W/CONTRAST CT ABDOMEN AND PELVIS WITH AND WITHOUT CONTRAST Date Procedure CPT Status Case # [id number] MRI ABDOMEN W/O&W CONT [id number] Verified 3322 No evidence of the previously reported 14 mm arterial phase enhancing observation within segment IVb. This may have represented a parenchymal vascular shunting phenomenon. No arterial phase enhancing observations nor discrete masses are currently evident. Stable appearing hepatic cirrhosis morphology, splenomegaly, moderate ascites and left posterolateral chest wall hematoma. Prog Note DT Title Author Last Juan DT 09/19/2018 COLONOSCOPY CONSULT REPORT Mercedez BARON ARDON A009/25/2018 IMP: the patient is a nice man with ESLD, chronic pancreatitis on enzyme replacement, with bowel irregularity whose biggest complaint is daily abdominal pain that occurs sporadically. REC: 1. reviewed differential including IBS, SBP, hernia pain, chronic panc pain, etc. Suspect symptoms are multifactorial. Reviewed alarming features. Would not change dosing of pancreatic enzymes or diuretics at this time. Suspect that a component of symptoms may be related to depression (best friend notes increasing irritabilty). Reviewed alarm features of incarcerated hernia, etc. but would recommend against elective hernia repair in setting of portal hypertension. 2. ok to use tylenol for pain (up to 2g/d); avoid NSAIDs and other pain relievers 3. f/u PCP and by phone with me regarding antidepressant dosing (suspect needs dose adjustment) 4. f/u 6 months Thanks/JTK Benefits, risks, and alternative tests described to patient and he/she agrees to proceed. The patient was instructed to call the GI lab on the floor of [facility] at [phone] or [phone] if questions or concerns arise. Informed consent performed verbally during office visit. Patient is advised to seek medical attention in the ER for chest pain, shortness of breath, changes in your thinking or moving, changes in blood pressure (very high or very low) bleeding, severe abdominal pain, or other severe/concerning changes in health status. 08/23/2024 11:00 [facility] 10/18/2024 09:00 [facility] PACT PHONE NUTR 11/23/2024 10:00 [facility] PACT 6 PCP 12/20/2024 09:30 [facility]ENDOCRINOLOGY SUBSTATION MAINTENANCE TECHNICIAN 4 03/14/2025 10:15 [facility]HEP LIVER Medication list was reviewed with the patient or care-pulp screen operator, any discrepancies were resolved and the patient was given an updated list. The patient was provided written information with my name, contact phone number, fax, GI lab number and email address. Patient was instructed to contact me with issues/questions/concerns. Written instructions with plans for meds/lab/imaging/procedures was provided to ensure compliance with the above stated plan. /zachary/ ADIN PHILIP Gastroenterology Signed: 08/09/2024 13:28 ADIN PHILIP [facility] Aug 17, 2024 01:26 PM GASTROENTEROLOGY TELEPHONE ENCOUNTER NOTE: LOCAL TITLE: [facility] GASTROENTEROLOGY TELEPHONE NOTE [facility] STANDARD TITLE: GASTROENTEROLOGY TELEPHONE ENCOUNTER NOTE DATE OF NOTE: AUG 17, 2024@13:26 ENTRY DATE: AUG 17, 2024@13:26:56 AUTHOR: CAROLANN DOS SANTOS COSIGNER: URGENCY: STATUS: COMPLETED Mr. Fish called my direct extension to provide Dr. Philip with the two antidepresssants he is prescribed by his PCP in an OSH Dr. Ramirez. escitolpram 10 mg once daily (takes in AM) amitriptyline 10mg once daily (takes in PM) He does not have any other questions or concerns for Dr. Philip at this time. Informed him I will update Dr. Philip and encouraged him to call my direct extension with any GI related questions or concerns. /zachary/ CAROLANN DOS SANTOS BSN RN REGISTERED NURSE Signed: 08/17/2024 13:29 Receipt Acknowledged By: 08/22/2024 07:13 /zachary/ ADIN PHILIP Gastroenterology CAROLANN DOS SANTOS [facility] Aug 09, 2024 01:13 PM GASTROENTEROLOGY OUTPATIENT NOTE: LOCAL TITLE: GASTROENTEROLOGY OUTPATIENT FOLLOW UP [facility] STANDARD TITLE: GASTROENTEROLOGY OUTPATIENT NOTE DATE OF NOTE: AUG 09, 2024@13:13 ENTRY DATE: AUG 09, 2024@13:13:45 AUTHOR: ADIN PHILIP EXP COSIGNER: URGENCY: STATUS: COMPLETED GASTROENTEROLOGY OUTPATIENT FOLLOW UP [facility] Has ADDENDA CC: Pt. is a 79 y/o male here for f/u of bowel irregularity/chronic pancreatitis/ESLD, etc. He has daily abdominal pain up to 5x per day. It is sporadic and can last up to 20 minutes. Sometimes it is triggered by eating and other times, it is not. He denies noctural symptoms. There have been no alarm features though he reports a slight increase in abdominal girth (bedside US today reveals some ascites but not enough to tap). He has some mental slowing, increased irritability, etc. The patient denies steatorrhea or weight loss. He has gained some weight. His appetite is decreased and he snacks in the evenings. (does not take a creon with those). He has a known abdominal wall hernia that at times is more tender to touch. There has been no redness or s/s of incarceration and he has been advised regarding the risks of surgical repair in the setting of ESLD. The patient has had diarrhea since at least 2019 and I suspect a component of IBS. Dicyclomine is not making a significant impact on symptoms of pain. ROS: Review of systems is as per HPI and additionally notable for Constitutional: No fever, No weakness/ fatigue Cardiovascular: No chest pain, No palpitations Respiratory: No shortness of breath, No cough Genitourinary: No dysuria, No polyuria Neurology: No headache, No tremors Musculoskeletal: No joint pain, No back pain Skin: No rash, No itching Psychiatric: No anxiety, No depression 10-point ROS is otherwise negative. MEDICATIONS: reviewed and pertinent for Active Outpatient Medications (excluding Supplies): Issue Date Status Last Fill Active Outpatient Medications Refills Expiration 1) AMILORIDE HCL 5MG TAB Qty: 360 for 90 days ACTIVE Issue: 02/15/24 Sig: TAKE TWO TABLETS BY MOUTH TWICE A DAY Refills: 1 Last : 08/03/24 Indication: FOR HIGH BLOOD PRESSURE Expr : 02/15/25 2) CALCIUM 600MG/VITAMIN D 400UNIT TAB Qty: 120 ACTIVE Issue: 07/13/24 for 60 days Sig: TAKE 1 TABLET BY MOUTH Refills: 2 Last : 07/16/24 TWICE A DAY WITH FOOD Expr : 07/14/25 Indication: FOR CALCIUM SUPPLEMENTATION 3) COLESTIPOL HCL 1GM TAB Qty: 60 for 30 days ACTIVE Issue: 09/27/23 Sig: TAKE ONE TABLET BY MOUTH TWICE A DAY Refills: 0 Last : 07/18/24 (OTHER MEDICATIONS SHOULD BE TAKEN 1 HOUR Expr : 09/27/24 BEFORE OR 4 HOURS AFTER COLESTIPOL) Indication: FOR DIARRHEA 4) CREON 36,000UNIT EC CAP Qty: 600 for 90 days ACTIVE Issue: 01/10/24 Sig: TAKE 2 CAPSULES BY MOUTH THREE TIMES A Refills: 0 Last : 08/14/24 DAY BEFORE MEALS TAKE WITH FOOD Expr : 01/10/25 DIRECTED. Indication: FOR PANCREATIC INSUFFICIENCY 5) FLUTICASONE PROP 50MCG 120D NASAL INHL Qty: ACTIVE Issue: 08/08/24 1 for 30 days Sig: INSTILL 1 SPRAY IN Refills: 11 Last : 08/08/24 NOSTRIL(S) ONCE A DAY (MUST BE USED Expr : 08/09/25 DIRECTED FOR MINIMUM OF 21 DAYS TO PROVIDE ADEQUATE BENEFITS) Indication: FOR CHRONIC RHINOSINUSITIS 6) FUROSEMIDE 80MG TAB Qty: 90 for 90 days Sig: ACTIVE Issue: 02/15/24 TAKE ONE TABLET BY MOUTH EVERY MORNING Refills: 1 Last : 08/03/24 Indication: FOR FLUID RETENTION (EDEMA) Expr : 02/15/25 7) IPRATROPIUM BR 0.03% NASAL SPRAY Qty: 30 for ACTIVE Issue: 08/08/24 30 days Sig: USE 2 SPRAYS INTO NOSTRIL(S) Refills: 11 Last : 08/08/24 THREE TIMES A DAY Expr : 08/09/25 Indication: FOR ALLERGIC RHINITIS 8) LOPERAMIDE HCL 2MG CAP Qty: 360 for 90 days ACTIVE Issue: 01/10/24 Sig: TAKE ONE CAPSULE BY MOUTH FOUR TIMES A Refills: 1 Last : 02/11/24 DAY NEEDED Expr : 01/10/25 Indication: DIARRHEA 9) NUTRITION SUPL ENSURE PLUS/CAIT LIQUID Qty: ACTIVE Issue: 07/24/24 24 for 24 days Sig: TAKE 1 CANFUL BY MOUTH Refills: 2 Last : 07/24/24 ONCE A DAY Expr : 07/25/25 Indication: FOR NUTRITION/DIETARY SUPPLEMENTATION 10) NUTRITION SUPL ENSURE PLUS/STRWBERRY LIQ ACTIVE Issue: 07/24/24 Qty: 24 for 24 days Sig: TAKE 1 CANFUL BY Refills: 2 Last : 07/24/24 MOUTH ONCE A DAY Expr : 07/25/25 Indication: FOR NUTRITION/DIETARY SUPPLEMENTATION 11) OLODATEROL/TIOTROP 2.5MCG/ACTUAT 60D INH ACTIVE Issue: 03/22/24 Qty: 3 for 90 days Sig: INHALE 2 PUFFS BY Refills: 2 Last : 07/04/24 ORAL INHALATION ONCE A DAY ADMINISTER AT Expr : 03/23/25 SAME TIME EACH DAY Indication: FOR COPD 12) PANTOPRAZOLE NA 40MG EC TAB Qty: 90 for 90 ACTIVE Issue: 02/08/24 days Sig: TAKE ONE TABLET BY MOUTH EVERY Refills: 0 Last : 06/26/24 MORNING BEFORE A MEAL . TAKE 30 MINUTES Expr : 02/08/25 BEFORE MEAL(S) Indication: LUQ PAIN 13) TERIPARATIDE 250MCG/ML (620MCG) 2.48ML Qty: ACTIVE Issue: 11/01/23 1 for 28 days Sig: INJECT 20MCG/0.08ML UNDER Refills: 3 Last : 07/10/24 THE SKIN ONCE A DAY (USE WITH NEEDLE,PEN Expr : 11/01/24 31G,5/16IN - SEPARATE RX) Indication: FOR OSTEOPOROSIS Start Date Active Non-VA Medications Status Stop Date 1) Non-VA ASPIRIN 81MG EC TAB SiMG BY ACTIVE MOUTH ONCE A DAY 2) Non-VA AZELASTINE 137MCG/SPRAY 200D NASAL ACTIVE INHL Si SPRAY NOSTRIL(S) TWICE A DAY 3) Non-VA CETIRIZINE HCL 10MG TAB SiMG BY ACTIVE MOUTH ONCE A DAY 4) Non-VA ESCITALOPRAM OXALATE 20MG TAB Sig: ACTIVE 10MG BY MOUTH ONCE A DAY 5) Non-VA FLUTICASONE PROP 50MCG 120D NASAL ACTIVE INHL Si SPRAY NOSTRIL(S) ONCE A DAY 6) Non-VA METOPROLOL TARTRATE 50MG TAB Sig: ACTIVE 25MG BY MOUTH TWICE A DAY 7) Non-VA SENNOSIDES 8.6MG TAB Si.6MG BY ACTIVE MOUTH ONCE A DAY NEEDED 20 Total Medications Vitals: 97.5 F [36.4 C] (08/09/2024 12:04)64 (08/09/2024 12:04)118/63 (08/09/2024 12:04)18 (08/09/2024 12:04) Measurement DT POx (L/MIN)(%) 08/09/2024 12:04 96 07/13/2024 09:18 95 04/07/2024 10:24 98 03/22/2024 10:24 98 24.2 General-NAD, muscle wasting of ESLD HEENT-mucous membranes moist and without lesion or exudate, no scleral icterus CV-rrr no m/r/g/t Lung-cta jassi, symmetric movement Abd-abd wall hernia to left of umbilicus; non-reducible; diffuse tenderness to palpation of abdomen; scant ascites Skin-no rash or jaundice INTERVAL TESTS: LABS: Hgb HGB 14.0 g/dL 02/10/2024 09:09 Hct 44.2 % (02/10/24 09:09) MCV 89.7 fL (02/10/24 09:09) Plt PLT 116 L 10*3/uL 02/10/2024 09:09 Iron, TIBC No IRON & TIBC EO data found Andrew No FERRITIN EO data found BUN 25.3 mg/dL H (07/13/24 10:33) Cr CREATININE 0.83 mg/dL 07/13/2024 10:33 Alb ALBUMIN 3.5 g/dL 02/22/2024 12:07 Ca 8.8 mg/dL (07/13/24 10:33) TSH TSH 1.231 uIU/mL 08/19/2023 11:39 Vit D VITAMIN D, 25-HYDROXY 42.5 ng/mL 07/13/2024 10:33 ALT 25 U/L (02/22/24 12:07) AST 33 U/L (02/22/24 12:07) TB TOTAL BILIRUBIN 0.7 mg/dL 02/22/2024 12:07 AP ALKALINE PHOSPHATASE 130 U/L 02/22/2024 12:07 INR INR VALUE 1.2 INR 09/22/2023 10:44 PROTIME 13.8 H sec 09/22/2023 10:44 LAB CUMULATIVE SELECTED 2 Collection DT Spec CHOL TRIG CalcLDL HDL a 08/19/2023 11:39 PLASM 140 65 83 44 b 11/12/2022 12:21 PLASM 139 95 74 46 --STATUS-- --DUE DATE-- --LAST DONE-- CELIAC DISEASE N/A No data available for: IMMUNOGLOBULIN A (PB-MA) TTG-IGA SLT - Lab Tests Selected Collection DT Specimen Test Name Result Units Ref Range 08/19/2023 11:39 BLOOD HGA1C 5.4 % 4.0 - 6.0 IMAGING: Impression for CHEST X-RAY, 2 VIEWS, 09/27/23, case [id number] No active pulmonary disease. Views Impression for CT ABDOMEN AND PELVIS W/CONTRAST, 10/13/23, case [id number] 1. *Numbering interval significant increase in the prominent ascites, with extension of the fluid into a left paramedian ventral hernia, likely representing the patient's palpable finding in this region. 2. New focal fluid collection within the right inguinal region, located between the inguinal canal and common femoral vein, likely fluid within a femoral hernia. 3. Persistent previous imaging features of portal hypertension and hepatic cirrhosis, including splenomegaly. 4. New small right pleural effusion. 5. Stable presumed hematoma/seroma superficial to the posterolateral left ninth and 10th ribs. Impression for US ABDOMEN LTD, SINGLE ORG OR QUADRANT, 12/30/23, case [id number] No evidence of hepatocellular carcinoma or other significant hepatic observations. US category: US-1. Visualization score: VIS-A. Persistent sonographic features of cirrhosis and portal venous hypertension with ascites. Date Procedure CPT Status Case # 10/13/2023 CT ABDOMEN AND PELVIS W/CONTRAST [id number] Verified 2294 1. *Numbering interval significant increase in the prominent ascites, with extension of the fluid into a left paramedian ventral hernia, likely representing the patient's palpable finding in this region. 2. New focal fluid collection within the right inguinal region, located between the inguinal canal and common femoral vein, likely fluid within a femoral hernia. 3. Persistent previous imaging features of portal hypertension and hepatic cirrhosis, including splenomegaly. 4. New small right pleural effusion. 5. Stable presumed hematoma/seroma superficial to the posterolateral left ninth and 10th ribs. No data available for: CT ABDOMEN AND PELVIS W/O CONTRAST CT ABDOMEN AND PELVIS W/CONTRAST CT ABDOMEN AND PELVIS WITH AND WITHOUT CONTRAST Date Procedure CPT Status Case # [id number] MRI ABDOMEN W/O&W CONT [id number] Verified [id number] No evidence of the previously reported 14 mm arterial phase enhancing observation within segment IVb. This may have represented a parenchymal vascular shunting phenomenon. No arterial phase enhancing observations nor discrete masses are currently evident. Stable appearing hepatic cirrhosis morphology, splenomegaly, moderate ascites and left posterolateral chest wall hematoma. Prog Note DT Title Author Last Juan DT 09/19/2018 COLONOSCOPY CONSULT REPORT BARON CANO A009/25/2018 IMP: the patient is a nice man with ESLD, chronic pancreatitis on enzyme replacement, with bowel irregularity whose biggest complaint is daily abdominal pain that occurs sporadically. REC: 1. reviewed differential including IBS, SBP, hernia pain, chronic panc pain, etc. Suspect symptoms are multifactorial. Reviewed alarming features. Would not change dosing of pancreatic enzymes or diuretics at this time. Suspect that a component of symptoms may be related to depression (best friend notes increasing irritabilty). Reviewed alarm features of incarcerated hernia, etc. but would recommend against elective hernia repair in setting of portal hypertension. 2. ok to use tylenol for pain (up to 2g/d); avoid NSAIDs and other pain relievers 3. f/u PCP and by phone with me regarding antidepressant dosing (suspect needs dose adjustment) 4. f/u 6 months Thanks/JTK Benefits, risks, and alternative tests described to patient and he/she agrees to proceed. The patient was instructed to call the GI lab on the 6th floor of [facility] at [phone] or [phone] if questions or concerns arise. Informed consent performed verbally during office visit. Patient is advised to seek medical attention in the ER for chest pain, shortness of breath, changes in your thinking or moving, changes in blood pressure (very high or very low) bleeding, severe abdominal pain, or other severe/concerning changes in health status. 08/23/2024 11:00 [facility] 10/18/2024 09:00 [facility]-ST CLR PACT PHONE NUTR 11/23/2024 10:00 [facility]-ST CLR PACT 6 PCP 12/20/2024 09:30 [facility]-ENDOCRINOLOGY SUBSTATION MAINTENANCE TECHNICIAN 4 03/14/2025 10:15 [facility]-HEP LIVER Medication list was reviewed with the patient or care-pulp screen operator, any discrepancies were resolved and the patient was given an updated list. The patient was provided written information with my name, contact phone number, fax, GI lab number and email address. Patient was instructed to contact me with issues/questions/concerns. Written instructions with plans for meds/lab/imaging/procedures was provided to ensure compliance with the above stated plan. /zachary/ ADIN PHILIP Gastroenterology Signed: 08/09/2024 13:28 08/22/2024 ADDENDUM STATUS: COMPLETED GI note Patient called to update antidepressant medication regimen: escitolpram 10 mg once daily (takes in AM) amitriptyline 10mg once daily (takes in PM) Suspect some of the symptoms he has been experiencing are that of depression in the setting of his chronic illnesses. Will alert PCP about possibility of increasing escitalopram dosing. Thanks/KIM /zachary/ ADIN PHILIP Gastroenterology Signed: 08/22/2024 07:17 Receipt Acknowledged By: * AWAITING SIGNATURE * TRUMAN GONZALEZ,ADIN [place] [facility]
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
--- OUTSIDE RECORDS SUMMARY | 2024-09-08 07:23 | XMS_ITS | Encounter Summary ---
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 Date/Time Primary/Secondary Diagnosis Diagnosis Name Provider Source Sep 08, 2024 12:34 PM PRIMARY Acquired absence of right leg below knee RASHEED HARVEY [facility] Plan of Treatment: Future Appointments (+ 6 months) and Future Tests (+/- 45 days) The Plan of Treatment section includes future care activities for the patient from all [place] treatmentfacilities. This section includes future appointments and future orders which are active, pending or scheduled. Future Appointments This section includes appointments that were scheduled to occur 6 months from the date of the Encounter, up to a maximum of 20 appointments. The data comes from all [facility]. Appointment Date/Time Appointment Type Appointme nt Facility Name Sep 12, 2024 10:30 AM AMBULATORY - MEDICINE [facility] Sep 25, 2024 12:00 PM [facility]ORY [facility] NONE [facility] October 18, 2024 09:00 AM AM[facility]ULATORY [facility] NONE [facility] October 19, 2024 01:30 PM AMBULATORY - NONE [facility] November 08, 2024 01:30 PM [facility] Nov 24, 2024 02:00 PM AMBULATORY - MEDICINE [facility] Dec 01, 2024 09:15 AM AMBULATORY - MEDICINE [facility] Dec 11, 2024 01:40 PM AMBULATORY - MEDICINE [facility] Dec 20, 2024 09:30 AM AMBULATORY - MEDICINE [facility] Jan 18, 2025 09:30 AM AMBULATORY - SURGERY [facility] Jan 18, 2025 10:51 AM AMBULATORY - MEDICINE [facility] Jan 22, 2025 03:30 PM [facility] Jan 26, 2025 11:00 AM AMBULATORY - NONE [facility] Jan 30, 2025 03:58 AM AMBULATORY - MEDICINE [facility] Feb 01, 2025 03:30 PM AMBULATORY - MEDICINE [facility] Mar 01, 2025 01:00 PM AMBULATORY - REHAB MEDICIN E [facility] Active, Pending, and Scheduled Orders This section includes a listing of several types of active, pending, and scheduled orders, including clinic medications orders, diagnostic test orders, procedure orders and consult orders; where the start date of the order is 45 days before the date of the Encounter or 45 days after the date of theEncounter. The data comes from all [facility]. Test Date/Time Test Type Test Details Facility Name October 18, 2024 12:00 AM Laboratory - Chemi stry Order C DIFF EPI PCR PNL STOOL FECES SP [facility] Social History: Smoking Status (Most current) and [...] Date/Time Current Smoking Status Comment Facil ity May 27, 2022 03:30 PM VA-TOBACCO FORMER USER [facility] Tobacco Use History This section includes a history of the smoking, or tobacco-related health factors, that were collected on or before the date of the Encounter. The data comes from the [place] facility where the Encounter took place. Date/Time Smoking Status/Tobacco Use Comment F acility May 27, 2022 03:30 PM [place]-TOBACCO QUIT 15 YRS OR MORE [facility] Feb 06, 2016 08:46 AM CURRENT TOBACCO USER [facility] Feb 06, 2016 08:46 AM TOBACCO MEDS OFFER ED BUT DECLINED [facility] Feb 26, 2015 12:24 PM LIFETIME NON-USER OF TOBACCO [facility] Advance Directives: All historical and current Section [...] Nov 17, 2022 ADVANCE DIRECTIVE MOISES ADHIKARI [facility] Jun 12, 2020 STATE-AUTHORIZED POR TABLE ORDERS ANNE CHATTERJEE [facility] October 21, 2018 RESCINDED ADVANCE DIRECTIVE SHERIF BETANCOURT [facility] November 12, 2011 ADVANCE DIRECTIVE DISCUSSION LIA JUAREZ [facility] Radiology Reports: +/- 30 days of the [...] the Encounter. The data comes from all [place] treatment facilities. Date/Time Radiology Report Provider Source Sep 25, 2024 11:13 AM US ABDOMEN LIMITED W/BLOOD FLOW DOPPLER: NEISHA FISH [id number] -[id number] M Exm Date: SEP 25, 2024@11:13 Req Phys: KASSI VICTOR Pat Loc: [facility]-MRI1.5AM (Req'g Loc) Img Loc: [facility]-ULTRASOUND [facility] Service: [address] [address] (Case [id number] COMPLETE) US ABDOMEN LTD, SINGLE ORG OR MARSHAL(US Detailed) CPT:92133 Reason for Study: cirrhosis, hcc screening (Case [id number] COMPLETE) US BLOOD FLOW ABD/RENAL (LTD) (US Detailed) CPT:12733 Clinical History: Organ to Image: Liver Reason for exam: cirrhosis hcc screening MRI Impression: 02/2024 [facility] No evidence of the previously reported 14 mm arterial phase enhancing observation within segment IVb. This may have represented a parenchymal vascular shunting phenomenon. No arterial phase enhancing observations nor discrete masses are currently evident. Stable appearing hepatic cirrhosis morphology, splenomegaly, moderate ascites and left posterolateral chest wall hematoma. Report Status: Verified Date Reported: SEP 25, 2024 Date Verified: SEP 25, 2024 [employer] E-Sig:/ES/CODI CHAUDHRY Report: Case [id number], [id number]. US ABDOMEN LTD, SINGLE ORG OR QUADRANT, US BLOOD FLOW ABD/RENAL (LTD). Comparison: 12/30/2023 History: Cirrhosis, HCC screening Findings: Liver: * Visualization score: A. * Morphology/parenchyma: There is coarsening of the liver echotexture with liver surface nodularity.. * Liver observations: None. Bile ducts: No intrahepatic or extrahepatic biliary ductal dilation. The common hepatic duct measures 3 mm. Gallbladder: Within normal limits.. Ascites: Small volume ascites is present.. Other findings: None significant. Doppler: The main portal vein is patent with appropriate hepatopetal blood flow. The main portal vein diameter is 1.3 cm. The visible hepatic veins are patent with appropriate flow direction. Impression: 1. Ultrasound Category: 1. 2. Visualization score: A. 3. Other findings: Cirrhotic liver morphology. Ascites US LI-RADS REFERENCE: US-1 negative: No evidence of HCC US-2 subthreshold: Observation(s) detected that may warrant short-interval US surveillance; observation <10 mm in diameter, not definitely benign. US-3 positive: Observation(s) detected that may warrant multiphase contrast-enhanced imaging; observation ? 10 mm in diameter or new thrombus in vein. Visualization Score: A: No or minimal limitations; limitations, if any, are unlikely to meaningfully affect sensitivity B: Moderate limitations; limitations my obscure small masses C: Severe limitations; limitations significantly lower sensitivity for focal liver lesions Primary Interpreting Staff: CODI CHAUDHRY MD (Stripping Shovel Operator) /CODI LOPEZ [facility] Encounter Notes: All associated encounter notes This section contains the clinical notes associated to the Encounter. Date/Time Encounter Note(s) Provider Source Sep 08, 2024 12:23 PM PHYSICAL MEDICINE REHAB OUTPATIENT NOTE: LOCAL TITLE: AMPUTATION REHAB COORDINATOR [facility] STANDARD TITLE: PHYSICAL MEDICINE REHAB OUTPATIENT NOTE DATE OF NOTE: SEP 08, 2024@12:23 ENTRY DATE: SEP 08, 2024@12:23:25 AUTHOR: RASHEED HARVEY COSIGNER: URGENCY: STATUS: COMPLETED Amputation Rehab Coordinator Note Pt called repeatedly asking about order being sent to [facility] [facility] for his new prosthesis. Pt states he has a blister on his leg, very irate that he does not have a new prosthesis yet. We reviewed expectations for timeline of prosthetic fabrication. Pt is not wearing current prosthesis due to blister, encouraged him to continue with this until leg is healed. Called [employer] to confirm that they have order. Lexis states Mr. Fish has been repeatedly calling them and very irate with them as well. They will make contact with him to schedule his fitting appt. No further action needed at this time. Pt to be seen for annual evaluation in February or sooner prn. /zachary/ RASHEED HARVEY Amputation Rehab Coordinator, Physical Therapist Signed: 09/08/2024 12:34 RASHEED HARVEY [facility]
--- OUTSIDE RECORDS SUMMARY | 2024-10-20 08:02 | XMS_ITS | Encounter Summary ---
Author Name [facility] [facility] [place] [facility] [place] Address [address] [place] [address] Care Team Providers Care Yard Rigger Name Role Phone TRUMAN GONZALEZ Primary Care [...] section includes the information on record at [place] for the Encounter. Date/Time Encounter Type Encounter Description Reason Pro vider Source October 20, 2024 01:02 PM Outpatient Encounter ENDOCRINOLOGY IHE Encounter Template Text not used by [place] Plan of Treatment: Future Appointments (+ 6 months) and Future Tests (+/- 45 days) The Plan of Treatment section includes future care activities for the patient from all [place] treatmentfacilities. This section includes future appointments and future orders which are active, pending or scheduled. Future Appointments This section includes appointments that were scheduled to occur 6 months from the date of the Encounter, up to a maximum of 20 appointments. The data comes from all [place] treatment facilities. Appointment Date/Time Appointment Type Appointme nt Facility Name November 08, 2024 01:30 PM AMBULATORY - MEDICINE [facility] Nov 24, 2024 02:00 PM AMBULATORY - MEDICINE [facility] Dec 01, 2024 09:15 AM AMBULATORY - MEDICINE [facility] Dec 11, 2024 01:40 PM AMBULATORY - MEDICINE [facility] Dec 20, 2024 09:30 AM AMBULATORY - MEDICINE [facility] Jan 18, 2025 09:30 AM AMBULATORY - SURGERY [facility] Jan 18, 2025 10:51 AM AMBULATORY - MEDICINE [facility] Jan 22, 2025 03:30 PM AMBULATORY - MEDICINE [facility] Jan 26, 2025 11:00 AM AM[facility]ULATORY - NONE [facility] Jan 30, 2025 03:58 AM AMBULATORY - MEDICINE [facility] Feb 01, 2025 03:30 PM [facility] Mar 01, 2025 01:00 PM AMBULATORY - REHAB MEDICIN [facility] Mar 14, 2025 10:15 AM AMBULATORY - MEDICINE [facility] Active, Pending, and Scheduled Orders This section includes a listing of several types of active, pending, and scheduled orders, including clinic medications orders, diagnostic test orders, procedure orders and consult orders; where the start date of the order is 45 days before the date of the Encounter or 45 days after the date of theEncounter. The data comes from all [place] treatment facilities. Test Date/Time Test Type Test Details Facility Name October 18, 2024 12:00 AM Laboratory - Chemistry Order C DIFF EPI PCR PNL STOOL FECES SP [facility] November 02, 2024 12:00 AM Laboratory - Chemistry Order CRP GREEN LI/HEP BLD/PLAS PLASMA SP [facility] November 02, 2024 12:00 AM Laboratory - Chemistry Order COMPREHENSIVE METABOLIC PANEL GREEN LI/HEP BLD/PLAS PLASMA [facility] Lab Results: +/- 30 days of [...] Unit Interpretation Reference Range Specimen Type Comment November 08, 2024 12:00 AM [facility] LACTOFERRIN,STOOL (STL-MA-PB) FECES Specimen Type: FECES No comment entered. Ordering Provider: ALFIE PHILIP Report Released Date/Time: November 02, 2024 04:52 PM Reporting Lab: [facility] [address] [facility] [place] [place] [place] [address] Performing Lab: [facility] [address] [facility] [place] [place] [address] LACTOFERRIN,STOOL (STL-MA-PB) POSITIVE November 03, 2024 12:45 PM [facility] ALPHA-FETOPROTEIN(STL-PB) PLASMA Specimen Type : PLASMA No comment entered. Ordering Provider: KASSI VICTOR Report Released Date/Time: Sep 25, 2024 02:03 PM Reporting Lab: [facility] [address] [facility] [place] [place] [address] Performing Lab: [facility] [address] [address] ALPHA-FETOPROTEIN(STL-PB) <2.00 ng/mL L 1- 8.78 November 03, 2024 12:45 PM [facility] AMMONIA (STL-MA) PLASMA Specimen Type: PLASM A No comment entered. Ordering Provider: ADIN PHILIP Report Released Date/Time: November 02, 2024 04:34 PM Reporting Lab: [facility] [address] [facility] [place] [place] [place] [address] Performing Lab: [facility] [address] [facility] [place] [place] [place] [address] AMMONIA (STL-MA) 75 umol/L H 13.5-35 November 03, 2024 12:45 PM [facility] CBC BLOOD Specimen Type: BLOOD No comment entered. Ordering Provider: ADIN PHILIP Report Released Date/Time: November 02, 2024 04:33 PM Reporting Lab: [facility] [address] [address] Performing Lab: [facility] [address] [facility] [address] WBC 6.2 10*3/uL 3.6-11.2 RBC 4.05 10*6/uL L 4.10-5.70 HGB 11.4 g/dL L 13.1-16.8 HCT 36.0 L 38.2-48.4 MCV 88.9 fL 80.0-100.0 MCH 28.1 pg 27.0-34.0 MCHC 31.7 g/dL L 33.0-36.0 PLT 118 10*3/uL L 150-400 MPV 11.8 fL H 7.5-11.2 RDW 17.2 H 11.8-15.1 LYMPHOCYTES, AUTO % 10 MONOCYTES, AUTO % 10 NEUTROPHILS, AUTO % 77 EOSINOPHILS, AUTO % 2 BASOPHILS, AUTO % 1 LYMPHOCYTES, ABSOLUTE 0.64 10*3/uL L 0.77- 4.50 MONOCYTES, ABSOLUTE 0.61 10*3/uL 0.19-0. 80 NEUTROPHILS, ABSOLUTE 4.77 10*3/uL 2.10- 8.00 EOSINOPHILS, ABSOLUTE 0.13 10*3/uL 0.00- 0.60 BASOPHILS, ABSOLUTE 0.03 10*3/uL 0.00-0. 20 Social History: Smoking Status (Most current) and Tobacco Use (All prior to encounter date) This section includes the most current, and the historical, smoking and tobacco- related health factors from the [place] facility where the Encounter took place. Current Smoking Status This section includes the most current smoking, or tobacco-related health factor, from the [place] facility where the Encounter took place. Date/Time Current Smoking Status Comment Melissa stoddard Nov 12, 2020 05:09 PM ORYX ADMIT TOBACCO SCREEN NO [facility] Tobacco Use History This section includes a history of the smoking, or tobacco-related health factors, that were collected on or before the date of the Encounter. The data comes from the [place] facility where the Encounter took place. Date/Time Smoking Status/Tobacco Use Comment F acmaria del rosario November 08, 2018 11:16 AM VA-TOBACCO FORMER USER [facility] November 08, 2018 11:16 AM VA-TOBACCO QUIT < 1 YEAR [facility] Jul 30, 2016 03:10 PM QUIT TOBACCO IN TH E LAST 12 MONTHS [facility] November 10, 2011 10:27 PM QUIT TOBACCO >12 M O & <7 YRS AGO [facility] Dec 28, 2005 08:38 AM CURRENT NON-TOBACC O USER-HX OF USE [facility] Dec 28, 2005 08:38 AM TOBACCO TERMINATION STAGE [facility] Jun 23, 2005 12:42 PM CURRENT TOBACCO USER [facility] Jun 23, 2005 12:42 PM SMOKER 1-2 PACKS [facility] Advance Directives: All historical and current Section Date Range: From patient's date of to the date document was created. This section includes ALL of a patient's completed or amended [place] Advance and Rescinded Directives. The entries below indicate that a directive exists for the patient, but an actual copy is not included with this document. The data comes from all [facility]. Date Advance Directives Provider Source Nov 17, 2022 ADVANCE DIRECTIVE MOISES ADHIKARI [facility] Jun 12, 2020 STATE-AUTHORIZED POR TABLE ORDERS ANNE CHATTERJEE [facility] October 21, 2018 RESCINDED ADVANCE DIRECTIVE SHERIF BETANCOURT [facility] November 12, 2011 ADVANCE DIRECTIVE DISCUSSION LIA JUAREZ [facility] Radiology Reports: +/- 30 days of [...] the Encounter. The data comes from all [place] treatment facilities. Date/Time Radiology Report Provider Source October 19, 2024 01:00 PM BONE DENSITY (STL) -P: NEISHA LUND [id number] -1945 M Exm Date: OCTOBER 19, 2024@13:00 Req Phys: AIDAN AGOSTO Pat Loc: [facility]-ENDOCRINOLOGY MINGLE OPERATOR 4 (Req'g L Img Loc: -MAIN RADIOLOGY SUITE Service: Unknown [facility] [address] [place] [address] (Case [id number] COMPLETE) BONE DENSITY(DXA), AXIAL SKELETON(RAD Detailed) CPT:31201 Reason for Study: osteoporosis (Case [id number] COMPLETE) BONE DENSITY (DXA), APPENDICULAR (RAD Detailed) CPT:16878 Clinical History: Report Status: Verified Date Reported: OCTOBER 19, 2024 Date Verified: OCTOBER 19, 2024 Film Numberer E-Sig:/ES/Daina Adames MD,PhD Report: Dual -Energy X-ray Absorptiometry (DXA) Comparison: DEXA scan 07/20/2023. Findings: LUMBAR SPINE (lumbar): Bone mineral density (g/cm2): 1.297 T-score: 1.9 LEFT FOREARM: Bone mineral density (g/cm2): 0.668 Current T-score: -2.8 Bone mineral density measurements of the forearm, proximal femur and lumbar spine with their appropriate regions of interest outlined are available for viewing in [facility]. FRAX not reported because the patient has diagnosis of osteoporosis and is being treated. Also, history of left hip fracture. Impression: WHO Category: Osteoporosis World Health Organization definitions of standard deviations relative to the mean T-score: Normal bone density = -1.0 and above Osteopenia = between -1.0 and -2.5 Osteoporosis = at or below -2.5 SD Primary Interpreting Staff: Daina Adames MD,PhD, Nuclear Medicine Physician (aPul) /DAINA STEVE [facility] Sep 25, 2024 11:13 AM US ABDOMEN LIMITED W/BLOOD FLOW DOPPLER: NEISHA LUND [id number] -1945 M Exm Date: SEP 25, 2024@11:13 Req Phys: KASSI VICTOR Loc: -MRI1.5AM (Req'g Loc) Img Loc: -ULTRASOUND Service: Unknown [facility] [address] [place] [address] (Case [id number] COMPLETE) US ABDOMEN LTD, SINGLE ORG OR MARSHAL(US Detailed) CPT:77935 Reason for Study: cirrhosis, hcc screening (Case 648 COMPLETE) US BLOOD FLOW ABD/RENAL (LTD) (US Detailed) CPT:80372 Clinical History: Organ to Image: Liver Reason for exam: cirrhosis hcc screening MRI Impression: 02/2024 [facility] No evidence of the previously reported 14 mm arterial phase enhancing observation within segment IVb. This may have represented a parenchymal vascular shunting phenomenon. No arterial phase enhancing observations nor discrete masses are currently evident. Stable appearing hepatic cirrhosis morphology, splenomegaly, moderate ascites and left posterolateral chest wall hematoma. Report Status: Verified Date Reported: SEP 25, 2024 Date Verified: SEP 25, 2024 Film Numberer E-Sig:/ES/CODI CHAUDHRY Report: Case [id number], [id number]. US ABDOMEN LTD, SINGLE ORG OR QUADRANT, [...] lesions Primary Interpreting Staff: CODI CHAUDHRY MD (Film Numberer) /CODI LOPEZ [facility]
--- OUTSIDE RECORDS SUMMARY | 2024-11-02 11:32 | XMS_ITS ---
Author Name [facility] [place] [facility] [place] Address [address] [place] [address] Care Team Providers Care Bibliographic Services Specialist Name Role Phone TRUMAN GONZALEZ Primary Care [...] section includes the information on record at [place] for the Encounter. Date/Time Encounter Type Encounter Description Reason Pro vider Source November 02, 2024 04:32 PM OFFICE O/P EST LOW 20 MIN GASTROENTEROLOGY ICD-10-CM R19.7 Diarrhea, unspecified Mariella PHILIP Encounter Template Text not used by [place] Assessments - Encounter Diagnoses This section includes the primary and secondary diagnoses documented for the Encounter. Date/Time Primary/Secondary Diagnosis Diagnosis Name Provider Source November 02, 2024 04:50 PM PRIMARY Diarrhea, unspecified YOMAIRA PHILIP [facility] November 02, 2024 04:50 PM SECONDARY Abnormal findings on dx imaging of liver and biliary tract YOMAIRA PHILIP [facility] November 02, 2024 04:50 PM SECONDARY Alcoholic cirrhosis of liver with ascites CEDRICKYOMAIRA GARZABHAVIN [place] [facility] November 02, 2024 04:50 PM SECONDARY Exocrine pancreatic insufficiency YOMAIRA PHILIPBHAVIN Hudson [facility] November 02, 2024 04:50 PM SECONDARY Generalized abdominal pain EVONISAÍASYOMAIRA GARZABHAVIN Hudson [facility] Plan of Treatment: Future Appointments (+ 6 months) and Future Tests (+/- 45 days) The Plan of Treatment section includes future care activities for the patient [facility] [place] [facility] This section includes future appointments and future orders which are active, pending or scheduled. Future Appointments This section includes appointments that were scheduled to occur 6 months from the date of the Encounter, up to a maximum of 20 appointments. The data comes from all [facility] facilities. Appointment Date/Time Appointment Type Appointme nt Facility Name November 08, 2024 01:30 PM AMBULATORY - MEDICINE [facility] Nov 24, 2024 02:00 PM AMBULATORY - MEDICINE [facility] Dec 01, 2024 09:15 AM AMBULATORY - MEDICINE [facility] Dec 11, 2024 01:40 PM AMBULATORY - MEDICINE [facility] Dec 20, 2024 09:30 AM AMBULATORY - MEDICINE [facility] Jan 18, 2025 09:30 AM AMBULATORY - SURGERY [facility] Jan 18, 2025 10:51 AM AMBULATORY - MEDICINE [facility] Jan 22, 2025 03:30 PM AMBULATORY - MEDICINE [facility] Jan 26, 2025 11:00 AM AMBULATORY - NONE [facility] Jan 30, 2025 03:58 AM AMBULATORY - MEDICINE [facility] Feb 01, 2025 03:30 PM AMBULATORY - MEDICINE [facility] Mar 01, 2025 01:00 PM AMBULATORY - REHAB [facility]ICIN [facility] Mar 14, 2025 10:15 AM AMBULATORY - MEDICINE [facility] May 03, 2025 10:45 AM AMBULATORY - SURGERY [facility] May 03, 2025 01:00 PM AMBULATORY - SURGERY Annabelle Newsome [facility] Active, Pending, and Scheduled Orders This section includes a listing of several types of active, pending, and scheduled orders, including clinic medications orders, diagnostic test orders, procedure orders and consult orders; where the start date of the order is 45 days before the date of the Encounter or 45 days after the date of theEncounter. The data comes from all [place] treatment facilities. Test Date/Time Test Type Test Details Facility Name October 18, 2024 12:00 AM Laboratory - Chemistry Order C DIFF EPI PCR PNL STOOL FECES SP [facility] November 02, 2024 12:00 AM Laboratory - Chemistry Order CRP GREEN LI/HEP BLD/PLAS PLASMA SP [facility] November 02, 2024 12:00 AM Laboratory - Chemistry Order COMPREHENSIVE METABOLIC PANEL GREEN LI/HEP BLD/PLAS PLASMA [facility] Lab Results: +/- 30 days of the encounter This section includes the Chemistry and Hematology Lab Results on record with [place] for the patient. Radiology Reports and Pathology Reports are provided separately, in subsequent sections. Lab Results This section contains the Chemistry/Hematology Results that were resulted 30 days before or 30 daysafter the date of the Encounter. Date/Time Source Result Type Result - Unit Interpretation Reference Range Specimen Type Comment November 08, 2024 12:00 AM [facility] LACTOFERRIN,STOOL (STL-MA-PB) FECES Specimen Type: FECES No comment entered. Ordering Provider: ALFIE PHILIP Report Released Date/Time: November 02, 2024 04:52 PM Reporting Lab: [facility] [address] [facility] [address] Performing Lab: [facility] [address] [facility] [address] LACTOFERRIN,STOOL (STL-MA-PB) POSITIVE November 03, 2024 12:45 PM [facility] ALPHA-FETOPROTEIN(STL-PB) PLASMA Specimen Type : PLASMA No comment entered. Ordering Provider: KASSI VICTOR Report Released Date/Time: Sep 25, 2024 02:03 PM Reporting Lab: [facility] [address] [facility] [address] Performing Lab: [address] [address] ALPHA-FETOPROTEIN(STL-PB) <2.00 ng/mL L 1- 8.78 November 03, 2024 12:45 PM [facility] AMMONIA (STL-MA) PLASMA Specimen Type: PLASM A No comment entered. Ordering Provider: ADIN PHILIP Report Released Date/Time: November 02, 2024 04:34 PM Reporting Lab: [address] [address] Performing Lab: [address] AMMONIA (STL-MA) 75 umol/L H 13.5-35 November 03, 2024 12:45 PM [facility] CBC BLOOD Specimen Type: BLOOD No comment entered. Ordering Provider: ADIN PHILIP Report Released Date/Time: November 02, 2024 04:33 PM Reporting Lab: [address] [address] Performing Lab: [address] [address] WBC 6.2 10*3/uL 3.6-11.2 RBC 4.05 10*6/uL [...] and tobacco- related health factors from the [place] facility where the Encounter took place. Current Smoking Status This section includes the most current smoking, or tobacco-related health factor, from the [place] facility where the Encounter took place. Date/Time Current Smoking Status Comment Facil ity Nov 12, 2020 05:09 PM ORYX ADMIT TOBACCO SCREEN NO [facility] Tobacco Use History This section includes a history of the smoking, or tobacco-related health factors, that were collected on or before the date of the Encounter. The data comes from the [place] facility where the Encounter took place. Date/Time Smoking Status/Tobacco Use Comment F acility November 08, 2018 11:16 AM VA-TOBACCO FORMER USER [facility] November 08, 2018 11:16 AM VA-TOBACCO QUIT < 1 YEAR [facility] Jul 30, 2016 03:10 PM QUIT TOBACCO IN TH E LAST 12 MONTHS [facility] November 10, 2011 10:27 PM QUIT TOBACCO >12 M O & <7 YRS AGO [facility] Dec 28, 2005 08:38 AM CURRENT NON-TOBACC O USER-HX OF USE [facility] Dec 28, 2005 08:38 AM TOBACCO TERMINATION STAGE [facility] Jun 23, 2005 12:42 PM CURRENT TOBACCO USER [facility] Jun 23, 2005 12:42 PM SMOKER 1-[address] [facility] Advance Directives: All historical and current Section Date Range: From patient's date of to the date document was created. This section includes ALL of a patient's completed or amended [place] Advance and Rescinded Directives. The entries below indicate that a directive exists for the patient, but an actual copy is not included with this document. The data comes from all [facility] facilities. Date Advance Directives Provider Source Nov 17, 2022 ADVANCE DIRECTIVE MOISES ADHIKARI [facility] Jun 12, 2020 STATE-AUTHORIZED POR TABLE ORDERS ANNE CHATTERJEE [facility] October 21, 2018 RESCINDED ADVANCE DIRECTIVE SERAFINSHERIF [facility] November 12, 2011 ADVANCE DIRECTIVE DISCUSSION LIA JUAREZ [facility] Radiology Reports: +/- 30 days of [...] the Encounter. The data comes from all [place] treatment facilities. Date/Time Radiology Report Provider Source October 19, 2024 01:00 PM BONE DENSITY (STL) -P: NEISHA LUND [id number] -[id number] M Exm Date: OCTOBER 19, 2024@13:00 Req Phys: AIDAN AGOSTO Pat Loc: [facility] [employer] LEGAL SECRETARY 4 (Req'g L Img Loc: [facility] SUITE Service: [address] [address] (Case [id number] COMPLETE) BONE DENSITY(DXA), AXIAL SKELETON(RAD Detailed) CPT:51298 Reason for Study: osteoporosis (Case [id number] COMPLETE) BONE DENSITY (DXA), APPENDICULAR (RAD Detailed) CPT:53683 Clinical History: Report Status: Verified Date Reported: OCTOBER 19, 2024 Date Verified: OCTOBER 19, 2024 Linotype Operator E-Sig:/ES/Daina Adames MD,PhD Report: Dual -Energy X-ray Absorptiometry (DXA) Comparison: DEXA scan 07/20/2023. Findings: LUMBAR SPINE (lumbar): Bone mineral density (g/cm2): 1.297 T-score: 1.9 LEFT FOREARM: Bone mineral density (g/cm2): 0.668 Current T-score: -2.8 Bone mineral density measurements of the forearm, proximal femur and lumbar spine with their appropriate regions of interest outlined are available for viewing in [facility]. FRAX not reported because the patient [...] Staff: Daina Adames MD,PhD, Nuclear Medicine Physician (Linotype Operator) /DAINA STEVE [facility] Encounter Notes: All associated encounter notes This section contains the clinical notes associated to the Encounter. Date/Time Encounter Note(s) Provider Source November 02, 2024 04:36 PM GASTROENTEROLOGY TELEPHONE ENCOUNTER NOTE: LOCAL TITLE: GASTROENTEROLOGY TELEPHONE NOTE [facility] STANDARD TITLE: GASTROENTEROLOGY TELEPHONE ENCOUNTER NOTE DATE OF NOTE: NOVEMBER 02, 2024@16:36 ENTRY DATE: NOVEMBER 02, 2024@16:36:40 AUTHOR: ADIN PHILIP EXP COSIGNER: URGENCY: STATUS: COMPLETED GASTROENTEROLOGY TELEPHONE NOTE [facility] Has ADDENDA GI note Called and spoke to the patient (caregiver was in the background). He has AM diarrhea (no nocturnal symptoms and no alarming features such as melena or BRBPR). Continues to lose weight. Also, complains of abdominal pain over hernia site. Having increasing confusion (per caregiver). Wants to know when and how he is going to gain weight back. 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 None of the meds have worked for his diarrhea. Denies recent antibiotics or med changes. Plan for now: 1. check labs (MELD), CRP, ammonia, and CBC; continue dicycolomine and pancreatic enzyme replacement; stool testing for C diff and lactoferrin; add lomotil 2. f/u as planned but would encourage his PCP to consider palliative care consult in light of his worsening QOL /zachary/ ADIN PHILIP Gastroenterology Signed: 11/02/2024 16:50 Receipt Acknowledged By: 12/06/2024 10:26 /es/ TRUMAN Roldan GONZALEZ MD 11/04/2024 ADDENDUM STATUS: COMPLETED GI note Labs reviewed and some are still pending. MELD is 8. Normal bilirubin and albumin. Platelets are a bit low and ammonia is elevated. Will await stool studies. Just started lomotil but if diarrhea persists then consider colonoscopy and biopsies for microscopic colitis. Last colon 2019. Thanks/KIM /zachary/ ADIN PHILIP Gastroenterology Signed: 11/04/2024 15:01 11/08/2024 ADDENDUM STATUS: COMPLETED GI note Stool lactoferrin is positive. C diff was not done because the stool was formed. Will schedule patient for a colonoscopy and biopsies for microscopic colitis. Thanks/KIM muñoz/ ADIN PHILIP Gastroenterology Signed: 11/08/2024 18:16 11/13/2024 ADDENDUM STATUS: COMPLETED Appt letter and instructions mailed per orders. /zachary/ LILI Noonan, RN GI Signed: 11/13/2024 07:08 ADIN PHILIP [facility]
--- OUTSIDE RECORDS SUMMARY | 2024-11-24 09:00 | XMS_ITS | Encounter Summary ---
Author Name [facility] [facility] [place] [facility] [place] [facility] [place] Address [address] [place] [address] Care Team Providers Care President Sales And Marketing Name Role Phone TRUMAN AMADOR Primary Care [...] Encounter Type Encounter Description Reason Provider Source Nov 24, 2024 02:00 PM OFFICE O/P EST MOD 30 MIN PRIMARY CARE/MEDICINE ICD-10-CM K70.30 Alcoholic cirrhosis of liver without ascites YASMANI AMADORIDA A IHE Encounter Template Text not used by [place] Assessments - Encounter Diagnoses This section includes the primary and secondary diagnoses documented for the Encounter. Date/Time Primary/Secondary Diagnosis Diagnosis Name Provider Source Nov 27, 2024 06:36 AM PRIMARY Alcoholic cirrhosis of liver without ascites YASMANI AMADORIDA A [facility] Plan of Treatment: Future Appointments (+ 6 months) and Future Tests (+/- 45 days) The Plan of Treatment section includes future care activities for the patient from all [facility] treatment[facility]ilities. This section includes future appointments and future orders which are active, pending or scheduled. Future Appointments This section includes appointments that were scheduled to occur 6 months from the date of the Encounter, up to a maximum of 20 appointments. The data comes from all [facility]. Appointment Date/Time Appointment Type Appointme nt Facility Name Dec 01, 2024 09:15 AM AMBULATORY - MEDICINE [facility] Dec 11, 2024 01:40 PM AMBULATORY - MEDICINE [facility] Dec 20, 2024 09:30 AM AMBULATORY - MEDICINE [facility] Jan 18, 2025 09:30 AM AMBULATORY - SURGERY [facility] Jan 18, 2025 10:51 AM AMBULATORY - MEDICINE [facility] Jan 22, 2025 03:30 PM AMBULATORY - MEDICINE [facility] Jan 26, 2025 11:00 AM AMBULATORY - NONE [facility] Jan 30, 2025 03:58 AM AMBULATORY - MEDICINE [facility] Feb 01, 2025 03:30 PM AMBULATORY - MEDICINE [facility] Mar 01, 2025 01:00 PM AMBULATORY - REHAB MEDICIN [facility] Mar 14, 2025 10:15 AM AMBULATORY - MEDICINE [facility] May 03, 2025 10:45 AM AMBULATORY - SURGERY [facility] May 03, 2025 01:00 PM AMBULATORY - SURGERY [facility] Active, Pending, and Scheduled Orders This section includes a listing of several types of active, pending, and scheduled orders, including clinic medications orders, diagnostic test orders, procedure orders and consult orders; where the start date of the order is 45 days before the date of the Encounter or 45 days after the date of theEncounter. The data comes from all [facility]. Test Date/Time Test Type Test Details Facility Name October 18, 2024 12:00 AM Laboratory - Chemistry Order C DIFF EPI PCR PNL STOOL FECES SP [facility] November 02, 2024 12:00 AM Laboratory - Chemistry Order CRP GREEN LI/HEP BLD/PLAS PLASMA SP [facility] November 02, 2024 12:00 AM Laboratory - Chemistry Order COMPREHENSIVE METABOLIC PANEL GREEN LI/HEP BLD/PLAS PLASMA SP [facility] Lab Results: +/- 30 days of [...] Type Comment November 08, 2024 12:00 AM [facility] LACTOFERRIN,STOOL (STL-[place]-PB) FECES Specimen Type: FECES No comment entered. Ordering Provider: ALFIE PHILIP Report Released Date/Time: November 02, 2024 04:52 PM Reporting Lab: [place] [address] [facility] [address] Performing Lab: [place] [address] [facility] [address] LACTOFERRIN,STOOL (STL-[place]-PB) POSITIVE November 03, 2024 12:45 PM [facility] ALPHA-FETOPROTEIN(STL-PB) PLASMA Specimen Type : PLASMA No comment entered. Ordering Provider: KASSI VICTOR Report Released Date/Time: Sep 25, 2024 02:03 PM Reporting Lab: [place] [address] [facility] [address] Performing Lab: [facility] [address] [facility] [address] ALPHA-FETOPROTEIN(STL-PB) <2.00 ng/mL L 1- 8.78 November 03, 2024 12:45 PM [facility] AMMONIA (STL-[place]) PLASMA Specimen Type: PLASM A No comment entered. Ordering Provider: ADIN PHILIP Report Released Date/Time: November 02, 2024 04:34 PM Reporting Lab: [place] [address] [facility] [address] Performing Lab: [place] [address] [facility] [address] AMMONIA (STL-[place]) 75 umol/L H 13.5-35 November 03, 2024 12:45 PM [facility] CBC BLOOD Specimen Type: BLOOD No comment entered. Ordering Provider: ADIN PHILIP Report Released Date/Time: November 02, 2024 04:33 PM Reporting Lab: [facility] [address] [facility] [address] Performing Lab: [facility] [address] [facility] [address] WBC 6.2 10*3/uL 3.6-11.2 RBC 4.05 10*6/uL [...] 0.60 BASOPHILS, ABSOLUTE 0.03 10*3/uL 0.00-0. 20 Vital Signs: All taken on the encounter date This section contains inpatient and outpatient Vital Signs collected on the date of the Encounter. Date/Time Temperature Pulse Blood Pressure Respiratory Rate SP02 Pain Height Weight Body Mass Index Source Nov 24, 2024 02:32 PM 6 [facility] Nov 24, 2024 02:23 PM 98.6 73 121/67 18 97 0 72 178.4 24 [facility] Social History: Smoking Status (Most current) and [...] Current Smoking Status Comment Facil ity Nov 24, 2024 02:00 PM VA-TOBACCO NEVER U SED OTHER TYPE [facility] Tobacco Use History This section includes a history of the smoking, or tobacco-related health factors, that were collected on or before the date of the Encounter. The data comes from the [place] facility where the Encounter took place. Date/Time Smoking Status/Tobacco Use Comment F acility Nov 24, 2024 02:00 PM VA-TOBACCO USE FOR NETTIE CIGARETTES [facility] Aug 19, 2023 10:30 AM VA-TOBACCO FORMER USER [facility] Aug 19, 2023 10:30 AM VA-TOBACCO QUIT 15 YRS OR MORE [facility] Jan 17, 2021 02:00 PM VA-TOBACCO FORMER USER [facility] Jan 17, 2021 02:00 PM VA-TOBACCO QUIT 5 TO < 15 YRS [facility] Feb 08, 2020 03:00 PM VA-TOBACCO FORMER USER [facility] Feb 08, 2020 03:00 PM VA-TOBACCO QUIT 1 TO < 5 YRS [facility] Nov 23, 2017 12:17 PM CURRENT TOBACCO USER [facility] Nov 23, 2017 12:17 PM CURRENT TOBACCO US ER (NOT READY TO QUIT) [facility] Nov 23, 2017 12:17 PM SMOKELESS TOBACCO AMOUNT/LENGTH V15 3-4 years [facility] Nov 23, 2017 12:17 PM TOBACCO CESSATION REFERRAL DECLINED [facility] Nov 23, 2017 12:17 PM TOBACCO MEDS OFFER ED BUT DECLINED [facility] Nov 23, 2017 12:17 PM TOBACCO USER OFFERED MEDS [facility] Sep 02, 2017 03:31 PM CURRENT TOBACCO USER [facility] Sep 02, 2017 03:31 PM CURRENT TOBACCO US ER (NOT READY TO QUIT) [facility] Sep 02, 2017 03:31 PM SMOKELESS TOBACCO AMOUNT/LENGTH V15 1 can week/ 3 years [facility] Sep 02, 2017 03:31 PM TOBACCO CESSATION REFERRAL DECLINED [facility] Sep 02, 2017 03:31 PM TOBACCO MEDS OFFER ED BUT DECLINED [facility] Sep 02, 2017 03:31 PM TOBACCO USER OFFERED MEDS [facility] Mar 05, 2017 03:20 PM CURRENT TOBACCO USER [facility] Sep 20, 2013 02:52 PM QUIT TOBACCO >7 YEARS AGO [facility] Aug 24, 2012 11:19 AM CURRENT TOBACCO USER [facility] Aug 24, 2012 11:19 AM TOBACCO MEDS OFFER ED BUT DECLINED [facility] May 25, 2006 02:09 PM QUIT TOBACCO >7 YEARS AGO [facility] Feb 05, 2005 02:16 PM CURRENT NON-TOBACC O USER-HX OF USE [facility] Feb 05, 2005 02:16 PM TOBACCO TERMINATION STAGE [facility] Advance Directives: All historical and current Section [...] Nov 17, 2022 ADVANCE DIRECTIVE MOISES ADHIKARI [facility] Jun 12, 2020 STATE-AUTHORIZED POR TABLE ORDERS ANNE CHATTERJEE [facility] October 21, 2018 RESCINDED ADVANCE DIRECTIVE SHERIF BETANCOURT [facility] November 12, 2011 ADVANCE DIRECTIVE DISCUSSION LIA JUAREZ [facility] Pathology Reports: +/- 30 days of the encounter Pathology Reports For cases when an order for pathology services may have been completed prior to the date of the Encounter, the report list includes the Pathology Reports that were completed up to 30 days before dateof the Encounter. For cases when an order for pathology services may have been completed after the date of the Encounter, the report list also includes the Pathology Reports that were completed up to30 days after date of the Encounter. The data comes from all [place] treatment facilities. Date/Time Pathology Report Provider Source Dec 05, 2024 04:00 PM LR SURGICAL PATHOL OGY REPORT: LOCAL TITLE: LR SURGICAL PATHOLOGY REPORT STANDARD TITLE: PATHOLOGY PROCEDURE NOTE DATE OF NOTE: DEC 05, 2024@16:00:09 ENTRY DATE: DEC 05, 2024@16:00:09 AUTHOR: LUAN ARANGO EXP COSIGNER: URGENCY: STATUS: COMPLETED $APHDR - - - - - - - - - - - - - - - - - - - - - - - - - - - - - - - - - - - - - - - - MEDICAL RECORD SURGICAL PATHOLOGY - - - - - - - - - - - - - - - - - - - - - - - - - - - - - - - - - - - - - - - - PATHOLOGY REPORT Accession No. SP [id number] - - - - - - - - - - - - - - - - - - - - - - - - - - - - - - - - - - - - - - - - $TEXT Submitted by: KARTIK PRICE Date obtained: Dec 01, 2024 13:43 - - - - - - - - - - - - - - - - - - - - - - - - - - - - - - - - - - - - - - - - Specimen (Received Dec 01, 2024 13:45): A. RANDOM COLON BIOPSY B. SIGMOID COLON POLYPS - - - - - - - - - - - - - - - - - - - - - - - - - - - - - - - - - - - - - - - - BRIEF CLINICAL HISTORY: 79-year-old male with diarrhea presents for colonoscopy assessment. - - - - - - - - - - - - - - - - - - - - - - - - - - - - - - - - - - - - - - - - PREOPERATIVE DIAGNOSIS: Diarrhea - - - - - - - - - - - - - - - - - - - - - - - - - - - - - - - - - - - - - - - - OPERATIVE FINDINGS: None provided - - - - - - - - - - - - - - - - - - - - - - - - - - - - - - - - - - - - - - - - POSTOPERATIVE DIAGNOSIS: None provided Surgeon/physician: CELINE ANDRADE MD =-=-=-=-=-=-=-=-=-=-=-=-=-=-=- =-=-=-=-=-=-=-=-=-=-=-=-=-=-=- =-=-=-=-=-=-=-=-=-= - - - - - - - - - - - - - - - - - - - - - - - - - - - - - - - - - - - - - - - - PATHOLOGY REPORT Accession No. SP [id number] - - - - - - - - - - - - - - - - - - - - - - - - - - - - - - - - - - - - - - - - GROSS DESCRIPTION: Martinjennifer Steeleber, 12/01/24 The specimen is received in formalin in two containers, each labeled with the patient's full name and SSN. A. Labeled as Random Colon Biopsy are multiple decker tissue fragments measuring 1.0 x 0.7 x 0.2 cm in aggregate, which are submitted in toto in A1. B. Labeled as Sigmoid Colon Polyps are three decker tissue fragments measuring from 0.4 to 0.6 cm in greatest dimension and 0.6 x 0.5 x 0.4 cm in aggregate, which are submitted in toto in B1. MICROSCOPIC EXAM: Comment: Sections from the colon random biopsy show colonic mucosa with patchy submucosal vascular ectasia and congestion. There is no intraepithelial lymphocytosis, epithelial hyperplasia or dysplasia. Lymphoid aggregates are also present. Clinical correlation is recommended. Sections from sigmoid colon polyps show a tubular adenoma and a mucosal prolapse polyp which exhibits features of marked acute and granulomatous inflammation, thickening and disruption of muscularis mucosae, crypt elongation, distortion and branching, and hyperplastic changes. Dysplasia is not seen. DIAGNOSIS: LARGE INTESTINE, COLON, RANDOM BIOPSY (A): -- COLONIC MUCOSA WITH VASCULAR ECTASIA (SEE COMMENT) -- NO EVIDENCE OF EPITHELIAL LYMPHOCYTOSIS, HYPERPLASIA OR DYSPLASIA LARGE INTESTINE, SIGMOID COLON, POLYPS, BIOPSY (B): -- MUCOSAL PROLAPSE POLYP (SEE COMMENT) -- TUBULAR ADENOMA -- NO HIGH-GRADE DYSPLASIA OR MALIGNANCY /zachary/ LUAN ARANGO MD, PhD STAFF PATHOLOGIST Signed Dec 05, 2024@16:00 Performing Laboratory: Surgical Pathology Report Performed By: [facility], [facility] [address] [facility] [id number] [address] [address] $FTR - - - - - - - - - - - - - - - - - - - - - - - - - - - - - - - - - - - - - - - - (End of report) LUAN ARANGO MD ph Date Dec 05, 2024 - - - - - - - - - - - - - - - - - - - - - - - - - - - - - - - - - - - - - - - - NEISHA LUND STANDARD FORM 515 ID:[id number] SEX:M :1945 AGE: 79 LOC:[id number] PCP: Truman Amador MD /zachary/ LUAN ARANGO MD, PhD STAFF PATHOLOGIST Signed: 12/05/2024 16:00 LUAN ARANGO [facility] Encounter Notes: All associated encounter notes This section contains the clinical notes associated to the Encounter. Date/Time Encounter Note(s) Provider Source Nov 24, 2024 02:39 PM PRIMARY CARE NOTE: LOCAL TITLE: PRIMARY CARE PROVIDER ESTABLISHED VISIT ST STANDARD TITLE: PRIMARY CARE NOTE DATE OF NOTE: NOV 24, 2024@14:39 ENTRY DATE: NOV 24, 2024@14:39:52 AUTHOR: TRUMAN AMADOR EXP COSIGNER: URGENCY: STATUS: COMPLETED ESTABLISHED PATIENT [id number]: REASON FOR VISIT/CHIEF COMPLAINT: increasing abd girth HPI:pt with chronic abd swelling due to liver cirrhosis and ascites, noted increasing abd girth and fluid accumulation on his ventrakl hernia that made wearing his trousers uncomfortable. He is on diuretics amanged by GI and followed by GI closely. no fever nor chills. no nausea nor vomiting. he has loose BM chronically about 3 episodes per day and is on colestipol.. I remined him to take creaon at least 30 minutes prior to measl to avoid indigestion/flatulence symptoms. these are not new problems for the pt. he will call Gi clinic for ascite management. continue diuretic, ER eval if develops increasing abd pain. He would like to consult with Surgery for hernia management.pt is aware that he is a high risk surgery for hernia repair, he is requestign to get surgery opinion. Denies new concerns. NonVA Providers: SOURCE(S) OF HISTORY: Patient PAST MEDICAL HISTORY: 1) Microscopic Hematuria comment: cysto, IVP, negative, Dr Barillas Urologist comment: colonoscopy due 2004 2) Alcoholic cirrhosis (SNOMED CT 935432665) comment: egd(2005)grade ll gastric varices comment: Hx [...] for age 60-74% of standard) 13) An[facility] [id number]) 14) Benign Prostatic Hypertrophy With Outflow Obstruction ([facility] [id number]) 15) History of Polyp of Colon ([facility] [id number]) comment: scope 09/2018, glandular atypia 16) Internal hemorrhoids 17) Vitamin D Deficiency ([facility] [id number]) 18) Allergic Rhinitis ([facility] [id number]) 19) Closed fracture of left acetabulum 20) Narcolepsy 21) AF - Atrial Fibrillation ([facility] [id number]) comment: on Amiodarone, NO DOAC 2/2 hemoptysis 22) PE - Pulmonary Embolism ([facility] [id number]) comment: during covid hsopitalization. NO DOAC 2/2 hemoptysis 23) H/O: surgery comment: R femoral neck fx s/p right THR 06/2021 24) Low Back Pain ([facility]CT [id number]) 25) Osteoporosis ([facility] [id number]) 26) Renal Impairment ([facility] [id number]) 27) Mild cognitive impairment 28) COPD - Chronic Obstructive Pulmonary Disease ([facility] [id number]) FAMILY HISTORY: No new updates. SOCIAL HISTORY: NICOTINE: Nicotine User: Yes/No ILLICIT DRUGS: Yes/No ETOH: XX drinks XX/per week. ALLERGIES: SULFA DRUGS, OXYBUTYNIN CHLORIDE ALLERGY REVIEW: Allergy list reviewed and remains current. MEDICATION RECONCILIATION: I have reviewed the patient's medication list with the patient and/or his/her care-press offbearer. Handwritten corrections, additions and/or deletions were made to the list. Corrected Outpatient Medication List was provided to the patient/caregiver. Active Outpatient Medications (including Supplies): Active Outpatient Medications Status 1) AMILORIDE HCL 5MG TAB TAKE TWO TABLETS BY MOUTH TWICE A DAY ACTIVE Indication: FOR HIGH BLOOD PRESSURE 2) ATROPINE 0.025/DIPHENOXYLATE 2.5MG TAB TAKE 1 TABLET BY ACTIVE MOUTH FOUR TIMES A DAY NEEDED NOT TO EXCEED 8 TABLETS/DAY. Indication: FOR DIARRHEA 3) BISACODYL 5MG EC TAB TAKE TWO TABLETS BY MOUTH ONE TIME TAKE ACTIVE BISACODYL TABLETS AT 4PM ON AFTERNOON PRIOR TO TEST. CALL [phone] WITH ANY QUESTIONS ABOUT THESE INSTRUCTIONS. MAIL Indication: Bowel Emptying 4) CALCIUM 600MG/VITAMIN D 400UNIT TAB TAKE 1 TABLET BY MOUTH ACTIVE TWICE A DAY WITH FOOD Indication: FOR CALCIUM SUPPLEMENTATION 5) COLESTIPOL HCL 1GM TAB TAKE ONE TABLET BY MOUTH TWICE A DAY ACTIVE (OTHER MEDICATIONS SHOULD BE TAKEN 1 HOUR BEFORE OR 4 HOURS AFTER COLESTIPOL) Indication: FOR DIARRHEA 6) COLON ELECTROLYTE LAVAGE PWD FOR SOLN MIX AND DRINK CONTENTS ACTIVE OF BOTTLE BY MOUTH DIRECTED (THE DAY BEFORE YOUR TEST ONLY DRINK CLEAR LIQUIDS-NO SOLID FOOD! TAKE THE BISACODYL TABLETS AT 4PM AND MIX THE CONTAINER WITH WATER AND REFRIGERATE. AT 7PM DRINK HALF OF THE CONTAINER. REFRIGERATE OVERNIGHT. COMPLETE CONTAINER 3 HRS BEFORE LEAVING HOME FOR TEST. READ YOUR INSTRUCTIONS!) Indication: Bowel Emptying 7) CREON 36,000UNIT EC CAP TAKE 2 CAPSULES BY MOUTH THREE TIMES ACTIVE A DAY BEFORE MEALS TAKE WITH FOOD DIRECTED. Indication: FOR PANCREATIC INSUFFICIENCY 8) FLUTICASONE PROP 50MCG 120D NASAL INHL INSTILL 1 SPRAY IN ACTIVE NOSTRIL(S) ONCE A DAY (MUST BE USED DIRECTED FOR MINIMUM OF 21 DAYS TO PROVIDE ADEQUATE BENEFITS) Indication: FOR CHRONIC RHINOSINUSITIS 9) FUROSEMIDE 80MG TAB TAKE ONE TABLET BY MOUTH EVERY MORNING ACTIVE Indication: FOR FLUID RETENTION (EDEMA) 10) IPRATROPIUM BR 0.03% NASAL SPRAY USE 2 SPRAYS INTO HOLD NOSTRIL(S) THREE TIMES A DAY Indication: FOR ALLERGIC RHINITIS 11) LOPERAMIDE HCL 2MG CAP TAKE ONE CAPSULE BY MOUTH FOUR TIMES ACTIVE A DAY NEEDED Indication: DIARRHEA 12) MAGNESIUM CITRATE LIQUID TAKE 1 BOTTLE BY MOUTH ONE-TIME ACTIVE PREP BEFORE COLONOSCOPY Indication: FOR BOWEL EMPTYING 13) NUTRITION SUPL ENSURE PLUS/CAIT LIQUID TAKE 1 CANFUL BY ACTIVE MOUTH TWICE A DAY Indication: FOR NUTRITION/DIETARY SUPPLEMENTATION 14) OLODATEROL/TIOTROP 2.5MCG/ACTUAT 60D INH INHALE 2 PUFFS BY ACTIVE ORAL INHALATION ONCE A DAY ADMINISTER AT SAME TIME EACH DAY Indication: FOR COPD 15) PANTOPRAZOLE NA 40MG EC TAB TAKE ONE TABLET BY MOUTH EVERY ACTIVE MORNING BEFORE A MEAL . TAKE 30 MINUTES BEFORE MEAL(S) Indication: LUQ PAIN 16) SIMETHICONE 80MG CHEW TAB CHEW AND SWALLOW FOUR TABLETS BY ACTIVE MOUTH DIRECTED FOR TWO DOSES BEFORE GI PROCEDURE Indication: FOR GAS DISCOMFORT 17) TERIPARATIDE 250MCG/ML(560MCG)2.24ML PEN INJECT 20MCG/0.08ML ACTIVE UNDER THE SKIN ONCE A DAY (USE WITH NEEDLE,PEN 31G,5/16IN - SEPARATE RX) Indication: FOR OSTEOPOROSIS Active Non-VA Medications Status 1) Non-VA AMITRIPTYLINE HCL 10MG TAB 10MG BY MOUTH ONCE A DAY ACTIVE 2) Non-VA ASPIRIN 81MG EC TAB 81MG BY MOUTH ONCE A DAY ACTIVE 3) Non-VA AZELASTINE 137MCG/SPRAY 200D NASAL INHL 1 SPRAY ACTIVE NOSTRIL(S) TWICE A DAY 4) Non-VA CETIRIZINE HCL 10MG TAB 10MG BY MOUTH ONCE A DAY ACTIVE 5) Non-VA ESCITALOPRAM OXALATE 20MG TAB 10MG BY MOUTH ONCE A ACTIVE DAY 6) Non-VA FLUTICASONE PROP 50MCG 120D NASAL INHL 1 SPRAY ACTIVE NOSTRIL(S) ONCE A DAY 7) Non-VA METOPROLOL TARTRATE 50MG TAB 25MG BY MOUTH TWICE A ACTIVE DAY 8) Non-VA SENNOSIDES 8.6MG TAB 8.6MG BY MOUTH ONCE A DAY ACTIVE NEEDED 25 Total Medications REVIEW OF SYSTEMS: General: Normal No Fevers, Chills, Weight Loss, Weight Gain, Recent Illness. Ears, Nose, Mouth, Throat: Normal No new loss of hearing or tinnitus, no Dental issue, Difficulty swallowing, Vertigo. Eye: Normal No Trauma, Cataracts, Glaucoma, Blurred vision Cardiovascular: Normal No Chest pain, Dizziness, Palpitations. Respiratory: Normal No Cough, SOB, Hemoptysis, Epistaxis, Influenza symptoms, +PDD. ABD/GI: Normal No Acid reflux/heartburn, Nausea, Vomiting, Diarrhea, Constipation, Pain/discomfort. Musculoskeletal/Extremities: Normal No Weakness, Edema, new Pain, new Stiffness/reduced ROM, Trauma. /DISTRIBUTION SYSTEM OPERATOR: Normal No Frequency, Hesitancy, Nocturia, Dysuria, Discharge, Odor. Hematology & Lymph: Normal No Anemia, Bleeding tendencies, Fatigue, Malignancy, Swollen nodes. Endocrine: Normal No Excessive hunger, Excessive thirst, Excessive urination. Psych: Normal No Insomnia, Hypersomnia, Nightmares, Anxiety. Neuro: Normal No Headaches, Seizures, Concussion, LOC, Tremor, Neuropathy. Skin: Normal No Lacerations/skin tears, Rash, Insect bites, Pressure ulcers, Lesions, Hematomae/contusions/abrasio ns. PHYSICAL EXAMINATION: General appearance: VITALS (most recent, as listed in the electronic record): B/P: 121/67 (11/24/2024 14:23) Pulse: 73 (11/24/2024 14:23) Temperature: 98.6 F [37.0 C] (11/24/2024 14:23) Weight: 178.4 lb [80.92 kg] (11/24/2024 14:23) Height: 72 in [182.9 cm] (11/24/2024 14:23) BMI: 24.2 Pain: 6 (11/24/2024 14:32) (0-10 scale) General: pleasant, cooperative, well-developed, well-nourished, appropriately dressed and groomed ; in no acute distress. Ears, Nose, Mouth, Throat:TM pearly jaquez, intact. Throat clear with no exudate. No trismus. Nose patent Eye:PERRL Cardiovascular:RRR, No m/r/g or clicks. Respiratory:Clear to auscultation bilaterally. No accessory muscle use. Respirations even and non-labored ABD/GI:soft, non-tender. BS + x 4., distended with ascites and boggy mass on left anterior abd near the umbilicus . NO PAIN nor rendess/warmth appreciated /DISTRIBUTION SYSTEM OPERATOR: Deferred Lymph: No lymphadenopathy Extremities:No pedal edema. Psych:Affect appropriate. Neuro: Oriented x3. Gait steady with normal stride. Hematology: Color good. No pallor. No ecchymosis or petechiae. Skin:No visualized abnormalities. DATA REVIEW: SLT - Lab Tests Selected Collection DT Specimen Test Name Result Units Ref Range 08/19/2023 11:39 BLOOD HGA1C 5.4 % 4.0 - 6.0 = TRIGLYCERIDE 65 mg/dL 08/19/2023 11:39 CHOLESTEROL 140 mg/dL 08/19/2023 11:39 HDL(New) 44 mg/dL 08/19/2023 11:39 CALCULATED LDL 83 mg/dL 08/19/2023 11:39 = SODIUM 137 mEq/L 07/13/2024 10:33 POTASSIUM 5.1 H mEq/L 07/13/2024 10:33 CHLORIDE 105 mEq/L 07/13/2024 10:33 UREA NITROGEN 25.3 H mg/dL 07/13/2024 10:33 CREATININE 0.83 mg/dL 07/13/2024 10:33 CALCIUM 8.8 mg/dL 07/13/2024 10:33 PROTEIN 7.0 g/dL 02/22/2024 12:07 ALBUMIN 3.5 g/dL 02/22/2024 12:07 ALKALINE PHOSPHATASE 130 U/L 02/22/2024 12:07 ALT/SGPT 25 U/L 02/22/2024 12:07 AST/SGOT 33 U/L 02/22/2024 12:07 TOTAL BILIRUBIN 0.7 mg/dL 02/22/2024 12:07 CARBON DIOXIDE 26 mEq/L 07/13/2024 10:33 GLUCOSE 91 mg/dL 07/13/2024 10:33 EGFR (CKD-EPI 2020) 90.1 07/13/2024 10:33 = WBC 6.2 10*3/uL 11/03/2024 12:45 RBC 4.05 L 10*6/uL 11/03/2024 12:45 HGB 11.4 L g/dL 11/03/2024 12:45 HCT 36.0 L % 11/03/2024 12:45 MCV 88.9 fL 11/03/2024 12:45 MCH 28.1 pg 11/03/2024 12:45 MCHC 31.7 L g/dL 11/03/2024 12:45 RDW 17.2 H % 11/03/2024 12:45 PLT 118 L 10*3/uL 11/03/2024 12:45 MPV 11.8 H fL 11/03/2024 12:45 NEUTROPHILS, AUTO % 77 % 11/03/2024 12:45 LYMPHOCYTES, AUTO % 10 % 11/03/2024 12:45 MONOCYTES, AUTO % 10 % 11/03/2024 12:45 EOSINOPHILS, AUTO % 2 % 11/03/2024 12:45 BASOPHILS, AUTO % 1 % 11/03/2024 12:45 NEUTROPHILS, ABSOLUTE 4.77 10*3/uL 11/03/2024 12:45 LYMPHOCYTES, ABSOLUTE 0.64 L 10*3/uL 11/03/2024 12:45 MONOCYTES, ABSOLUTE 0.61 10*3/uL 11/03/2024 12:45 EOSINOPHILS, ABSOLUTE 0.13 10*3/uL 11/03/2024 12:45 BASOPHILS, ABSOLUTE 0.03 10*3/uL 11/03/2024 12:[address]T FRACTION 5.0 % 02/10/2024 09:09 = PROST. SPECIFIC AG.(PB-STL) 0.350 ng/mL 07/20/2022 10:52 PROST. SPECIFIC AG.(PB-STL) 0.192 ng/mL 08/29/2021 12:52 = TSH 1.231 uIU/mL 08/19/2023 11:39 = URIC ACID: Collection DT Specimen Test Name Result Units Ref Range 02/22/2012 10:48 PLASMA URIC ACID 5.6 mg/dl 3.5 - 7.2 = No B12 EO data found = VITAMIN D, 25-HYDROXY 42.5 ng/mL 07/13/2024 10:33 = INR: INR VALUE 1.2 INR 09/22/2023 10:44 PROTIME 13.8 H sec 09/22/2023 10:44 = No URINALYSIS EO data found = Urine Microalbumin: No data available = No METHADONE PANEL EO data found = Dilantin: ____ = Digoxin: No data available for: DIGOXIN = Chest x-ray: No data available for: CHEST 2 VIEWS PA&LAT = EKG: No data available for: EKG CONSULT STL EKG CONSULTS PB EKG RESULTS MA Result: Acceptable Follow-up Action: Data results reviewed with patient and/or caregiver. ASSESSMENT/PLAN: #liver cirrhosis with ascites, continue duiuretic reginen poer GI. reviewed low salt diet. will call GI for f.u sooner than scheduled as pt feels thst he might need another tap due to increasing ascites #chronic loose BM , reviewed colestipol and creon regimen per GI. monitor. take loperamide afer loose bm prn. reviewed fluid and electrolyte intake # ventral wall hernia and femoral hernia seen on last CT abd pelvis, pt is requesting surg consult, advised ER eval for acutely worsening abd and groin pain thet is NOT PRESENT at this time. RETURN TO CLINIC:4-6 mo Return to Clinic order placed SUMMARY STATEMENT: Plan of care has been discussed with including expected therapeutic benefits and potential side effects of prescribed medication and treatments. [place] verbalizes understanding and is in agreement with the plan of care. Patient was instructed to keep all scheduled appointments and contact carburizing furnace operator for any additional problems. PREVENTION & SCREENING: ALCOHOL: Clinical Reminder not due now or within a month BLOOD PRESSURE: Clinical Reminder not due now or within a month HEMOGLOBIN A1C: Clinical Reminder not due now or within a month /zachary/ TRUMAN AMADOR MD Signed: 11/27/2024 06:50 Receipt Acknowledged By: 11/28/2024 10:02 /zachary/ CAROLANN FOFANAN RN REGISTERED NURSE [facility] Nov 24, 2024 02:30 PM NURSING NOTE: LOCAL TITLE: V15 PACT FACE TO FACE NOTE ST STANDARD TITLE: NURSING NOTE DATE OF NOTE: NOV 24, 2024@14:30 ENTRY DATE: NOV 24, 2024@14:30:27 AUTHOR: SAUL LINARES COSIGNER: URGENCY: STATUS: COMPLETED Provider Visit: Patient Identifiers : Full Name Date of Reason for visit: Established Follow-Up Mode of Arrival: Assistive Device: cane Allergy Review: OXYBUTYNIN CHLORIDE SEP 21, 2019 (HISTORICAL) Symptoms: DRY MOUTH SULFA DRUGS DEC 12, 2004 (HISTORICAL) Symptoms: SHORTNESS OF BREATH Comments: SEP 29, 2006@06:42:55 Changed from SULFA (File 120.82) to free text by patch GMRA*4*36 NOVEMBER 01, 2006@16:12:47 Updated using auto clean up process from GMRA*4*29. Changed reactant from SULFA (free text) to SULFA DRUGS(file - GMRD(120.82,) Allergy list reviewed and remains current. Recent Vital Signs: Temperature: 98.6 F [37.0 C] (11/24/2024 14:23) Pulse: 73 (11/24/2024 14:23) Respiration: 18 (11/24/2024 14:23) B/P: 121/67 (11/24/2024 14:23) Pain: 0 (11/24/2024 14:23) Wt: 178.4 lb [80.92 kg] (11/24/2024 14:23) Ht: 72 in [182.9 cm] (11/24/2024 14:23) BMI: 24.2 POX: 97% (11/24/2024 14:23) PERSONAL HEALTH INVENTORY Notes: No data available for PHI note titles PERSONAL HEALTH INVENTORY - MAP: 10/19/2018 Phis What Do You Live For to keep living, friends,and family, so I can live longer, being with those I love What matters most to you in your life right now? - 's Response: riding his motorcycle Would you like to discuss any personal problem, family problem, alcohol use, drug use, or a mental or emotional illness? No Contact provided Primary Care phone number and encouraged to call if any questions or concerns. Review that after hours nurse line [phone] and emergency room are available 04/01 for patient use. Contact verbalized good understanding. Alcohol Use Screen (AUDIT-C) - V: Alcohol Screen: SCREEN FOR ALCOHOL (AUDIT-C) An alcohol screening test (AUDIT-C) was negative (score=0). 1. How often did you have a drink containing alcohol in the past year? Consider a drink to be a 12 ounce can or bottle of regular beer, 8 ounces of malt liquor, a 5 ounce glass of table wine, or a 1.5 ounce shot of liquor (like scotch, gin, or vodka). Never 2. How many drinks containing alcohol did you have on a typical day when you were drinking in the past year? Response not required due to responses to other questions. 3. How often did you have six or more drinks on one occasion in the past year? Response not required due to responses to other questions. Frail/Elderly Screen: ADL Screen - [place] Index of [place] in Activities of Daily Living Bathing: (3 Points) Receives no assistance (gets in and out of tub by self, if tub is usual means of bathing) Dressing: (3 Points) Gets clothes and gets completely dressed without assistance. Toileting: (3 Points) Goes to toilet room, cleans self, and arranges clothes without assistance (may use object for support such as cane, walker, or wheelchair, and may manage own night bedpan or commode, emptying same next morning) Transferring: (3 Points) Moves in and out of bed and in and out of chair without assistance (may be using object for support, such as cane or walker) Continence: (2 Points) Has occasional accidents or urination or bowels Feeding: (3 Points) Feeds self without assistance Total Score: 17 Points 18 = High (patient independent) 6 = Low (patient very dependent) IADL Screen - [place] Instrumental Activities of Daily Living Scale Ability to use telephone: (1 point) Operates Telephone on own initiative; looks up and dials numbers. Shopping: (1 point) Takes care of all shopping needs independently. Food preparation: (1 point) Plans, prepares, and serves adequate meals independently. Housekeeping: (1 point) Performs light daily tasks such as dishwashing, bed making. Laundry: (0 points) All laundry must be done by others. Mode of transportation: (1 point) Travels independently on public transportation or drives own car. Responsibility for own medications: (1 point) Is responsible for taking medications in correct dosages at correct times. Ability to handle finances: (1 point) Manages financial matters independently (budgets, writes checks, pays rent and bills, goes to bank); collects and keeps track of income. 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 Following are findings of note: Patient reads well. Comment: with glasses LANGUAGE Patient reports that Bulgarian is preferred language for healthcare. Patient reports learning preference is to refer to handouts. Tobacco Use Screening - AT,DE,L,M,N,P,PH,PS,RT,S,U: The patient is a former cigarette smoker. The patient has never used other types of tobacco. COVID-19 Immunization-L,N,P,PH,U: Refused Pfizer Monovalent COVID-19 vaccine Immunization: COVID-19 (PFIZER), MRNA, LNP-S, PF, TATA-SUCROSE, 30 MCG/0.3 ML (AGES 12+ YEARS) Refusal Reason: PATIENT DECISION Patient refuses all immunization(s) in the COVID-19 group Date Documented: 11/24/24 14:35 /zachary/ SAUL LINARES LPN LICENSED PRACTIAL NURSE Signed: 11/24/2024 14:36 SAUL LINARES [facility]
--- OUTSIDE RECORDS SUMMARY | 2024-12-01 04:15 | XMS_ITS | Encounter Summary ---
Author Name [facility] [place] Organization [facility] [place] Address [address] [place] [address] Care Team Providers Care Cargo Bracer Name Role Phone TRUMAN AMADOR Primary Care [...] section includes the information on record at [place] for the Encounter. Date/Time Encounter Type Encounter Description Reason Provider Source Dec 01, 2024 09:15 AM DIAGNOSTIC COLONOSCOPY GI ENDOSCOPY ICD-10-CM R19.7 Diarrhea, unspecified JANLEL ANDRADE Encounter Template Text not used by [place] Assessments - Encounter Diagnoses This section includes the primary and secondary diagnoses documented for the Encounter. Date/Time Primary/Secondary Diagnosis Diagnosis Name Provider Source Dec 01, 2024 11:39 AM PRIMARY Diarrhea, unspecified CELINE ANDRADE [facility] Dec 01, 2024 11:39 AM SECONDARY Benign neoplasm of sigmoid colon CELINE ANDRAED [facility] Plan of Treatment: Future Appointments (+ 6 months) and Future Tests (+/- 45 days) The Plan of Treatment section includes future care activities for the patient [facility] all [place] [facility] This section includes future appointments and future orders which are active, pending or scheduled. Future Appointments This section includes appointments that were scheduled to occur 6 months from the date of the Encounter, up to a maximum of 20 appointments. The data comes from all [facility]. Appointment Date/Time Appointment Type Appointme nt Facility Name Dec 11, 2024 01:40 PM AMBULATORY - MEDICINE [facility] Dec 20, 2024 09:30 AM AMBULATORY - MEDICINE [facility] Jan 18, 2025 09:30 AM AMBULATORY - SURGERY [facility] Jan 18, 2025 10:51 AM AMBULATORY - MEDICINE [facility] Jan 22, 2025 03:30 PM AMBULATORY - MEDICINE [facility] Jan 26, 2025 11:00 AM AMBULATORY - NONE [facility] Jan 30, 2025 03:58 AM AMBULATORY - MEDICINE [facility] Feb 01, 2025 03:30 PM AMBULATORY - MEDICINE [facility] Mar 01, 2025 01:00 PM AMBULATORY - REHAB MEDICIN E [facility] Mar 14, 2025 10:15 AM AMBULATORY - MEDICINE [facility] May 03, 2025 10:45 AM AMBULATORY - SURGERY [facility] May 03, 2025 01:00 PM AMBULATORY - SURGERY [facility] Active, Pending, and Scheduled Orders This section includes a listing of several types of active, pending, and scheduled orders, including clinic medications orders, diagnostic test orders, procedure orders and consult orders; where the start date of the order is 45 days before the date of the Encounter or 45 days after the date of theEncounter. The data comes from all [facility]. Test Date/Time Test Type Test Details Facility Name October 18, 2024 12:00 AM Laboratory - Chemistry Order C DIFF EPI PCR PNL STOOL FECES SP [facility] November 02, 2024 12:00 AM Laboratory - Chemistry Order CRP GREEN LI/HEP BLD/PLAS PLASMA SP [facility] November 02, 2024 12:00 AM Laboratory - Chemistry Order COMPREHENSIVE METABOLIC PANEL GREEN LI/HEP BLD/PLAS PLASMA SP [facility] Lab Results: +/- 30 days of the encounter This section includes the Chemistry and Hematology Lab Results on record with [place] for the patient. Radiology Reports and Pathology Reports are provided separately, in subsequent sections. Lab Results This section contains the Chemistry/Hematology Results that were resulted 30 days before or 30 daysafter the date of the Encounter. Date/Time Source Result Type Result - Unit Interpretation Reference Range Specimen Type Comment November 08, 2024 12:00 AM [facility] LACTOFERRIN,STOOL (STL-MA-PB) FECES Specimen Type: FECES No comment entered. Ordering Provider: ALFIE PHILIP Report Released Date/Time: November 02, 2024 04:52 PM Reporting Lab: [address] [address] Performing Lab: [address] [address] LACTOFERRIN,STOOL (STL-MA-PB) POSITIVE November 03, 2024 12:45 PM [facility] ALPHA-FETOPROTEIN(STL-PB) PLASMA Specimen Type : PLASMA No comment entered. Ordering Provider: KASSI VICTOR Report Released Date/Time: Sep 25, 2024 02:03 PM Reporting Lab: [place] [address] [facility] [place] [address] Performing Lab: [address] [address] ALPHA-FETOPROTEIN(STL-PB) <2.00 ng/mL L 1- 8.78 November 03, 2024 12:45 PM [facility] AMMONIA (STL-MA) PLASMA Specimen Type: PLASM A No comment entered. Ordering Provider: ADIN PHILIP Report Released Date/Time: November 02, 2024 04:34 PM Reporting Lab: [place] [address] [place] [address] Performing Lab: [address] [address] AMMONIA (STL-MA) 75 umol/L H 13.5-35 November 03, 2024 12:45 PM [facility] CBC BLOOD Specimen Type: BLOOD No comment entered. Ordering Provider: ADIN PHILIP Report Released Date/Time: November 02, 2024 04:33 PM Reporting Lab: [facility] [address] [facility] [address] Performing Lab: [facility] [address] [place] [address] WBC 6.2 10*3/uL 3.6-11.2 RBC 4.05 10*6/uL [...] and tobacco- related health factors from the [place] facility where the Encounter took place. Current Smoking Status This section includes the most current smoking, or tobacco-related health factor, from the [place] facility where the Encounter took place. Date/Time Current Smoking Status Comment Facil arlyn Nov 12, 2020 05:09 PM ORYX ADMIT TOBACCO SCREEN NO [facility] Tobacco Use History This section includes a history of the smoking, or tobacco-related health factors, that were collected on or before the date of the Encounter. The data comes from the [place] facility where the Encounter took place. Date/Time Smoking Status/Tobacco Use Comment F acility November 08, 2018 11:16 AM VA-TOBACCO FORMER USER [facility] November 08, 2018 11:16 AM VA-TOBACCO QUIT < 1 YEAR [facility] Jul 30, 2016 03:10 PM QUIT TOBACCO IN TH E LAST 12 MONTHS [facility] November 10, 2011 10:27 PM QUIT TOBACCO >12 M O & <7 YRS AGO [facility] Dec 28, 2005 08:38 AM CURRENT NON-TOBACC O USER-HX OF USE [facility] Dec 28, 2005 08:38 AM TOBACCO TERMINATION STAGE [facility] Jun 23, 2005 12:42 PM CURRENT TOBACCO USER [facility] Jun 23, 2005 12:42 PM SMOKER 1-2 PACKS [facility] Advance Directives: All historical and current Section Date Range: From patient's date of to the date document was created. This section includes ALL of a patient's completed or amended [place] Advance and Rescinded Directives. The entries below indicate that a directive exists for the patient, but an actual copy is not included with this document. The data comes from all [place] facilities. Date Advance Directives Provider Source Nov 17, 2022 ADVANCE DIRECTIVE MOISES ADHIKARI [facility] Jun 12, 2020 STATE-AUTHORIZED POR TABLE ORDERS ANNE CHATTERJEE [facility] October 21, 2018 RESCINDED ADVANCE DIRECTIVE SHERIF BETANCOURT [facility] November 12, 2011 ADVANCE DIRECTIVE DISCUSSION LIA JUAREZ [facility] Pathology Reports: +/- 30 days of the [...] the Encounter. The data comes from all [place] treatment facilities. Date/Time Pathology Report Provider Source [...] - - - - - GROSS DESCRIPTION: Martin Rocha, 12/01/24 The specimen is received in formalin [...] ADENOMA -- NO HIGH-GRADE DYSPLASIA OR MALIGNANCY /es/ LUAN ARANGO MD, PhD STAFF PATHOLOGIST Signed Dec 05, 2024@16:00 Performing Laboratory: Surgical Pathology Report Performed By: [facility]# [id number] [address] [place] [id number] $FTR - - - - - - - - - - - - - - - - - - - - - - - - - - - - - - - - - - - - - - - - (End of report) LUAN ARANGO MD Date Dec 05, 2024 - - - - - - - - - - - - - - - - - - - - - - - - - - - - - - - - - - - - - - - - NEISHA LUND STANDARD FORM 515 ID:[id number] SEX:M :1945 AGE: 79 LOC:[id number] PCP: Truman Amador MD /zachary/ LUAN ARANGO MD, PhD STAFF PATHOLOGIST Signed: 12/05/2024 16:00 LUAN ARANGO [facility] Encounter Notes: All associated encounter notes This section contains the clinical notes associated to the Encounter. Date/Time Encounter Note(s) Provider Source Dec 01, 2024 10:19 AM PREPROCEDURE NOTE: LOCAL TITLE: PHYSICIAN PRE-PROCEDURE ASSESSMENT ST STANDARD TITLE: PREPROCEDURE NOTE DATE OF NOTE: DEC 01, 2024@10:19 ENTRY DATE: DEC 01, 2024@10:19:36 AUTHOR: KARTIK PRICE EXP COSIGNER: CELINE ANDRADE URGENCY: STATUS: COMPLETED Airway: No significant abnormality Mallampati Score: 2 Neck Extension: Not Limited Teeth: No significant abnormality Cardiac: No significant abnormality Pulmonary: No significant abnormality Gastrointestinal: No significant abnormality Neurological: No significant abnormality ASA Score: 2 Abdominal and Pelvic Surgical History: none Sedation/Anesthesia Plan: Anesthesia consult History of previous adverse reaction to sedation: No Tobacco use: No Alcohol use: No Recreational drug use: Yes Last oral intake:6 am Time spent:5-9 minutes /rocio PRICE Gastroenterology and Hepatology Fellow Signed: 12/01/2024 11:19 /zachary/ Celine Andrade MD Staff Physician Cosigned: 12/01/2024 11:39 KARTIK PRICE [facility]
--- OUTSIDE RECORDS SUMMARY | 2024-12-01 06:12 | XMS_ITS ---
Author Name [facility] [place] Address [address] [facility] [facility], [place] [address] Care Team Providers Care Soil Conservation Teacher Name Role Phone TRUMAN AMADOR Primary Care [...] Description Reason Provider Source Dec 01, 2024 11:12 AM Outpatient Encounter ADMIN PAT ACTIVTIES (MASNONCT) MAYRA GARDUNO Encounter Template Text not used by [place] Plan of Treatment: Future Appointments (+ 6 [...] 20 appointments. The data comes from all [place] treatment facilities. Appointment Date/Time Appointment Type Appointme nt Facility Name Dec 11, 2024 01:40 PM AMBULATORY - MEDICINE [facility] Dec 20, 2024 09:30 AM AMBULATORY - MEDICINE [facility] Jan 18, 2025 09:30 AM AMBULATORY - SURGERY [facility] Jan 18, 2025 10:51 AM AMBULATORY - MEDICINE [facility] Jan 22, 2025 03:30 PM AMBULATORY - MEDICINE [facility] Jan 26, 2025 11:00 AM AMBULATORY - NONE [facility] Jan 30, 2025 03:58 AM AMBULATORY - MEDICINE [facility] Feb 01, 2025 03:30 PM AMBULATORY - MEDICINE [facility] Mar 01, 2025 01:00 PM AMBULATORY - RE[facility]AB [facility] Mar 14, 2025 10:15 AM AMBULATORY - MEDICINE [facility] May 03, 2025 10:45 AM AMBULATORY - SURGERY [facility] May 03, 2025 01:00 PM AMBULATORY - SURGERY [facility] Active, Pending, and Scheduled Orders This section includes a listing of several types of active, pending, and scheduled orders, including clinic medications orders, diagnostic test orders, procedure orders and consult orders; where the start date of the order is 45 days before the date of the Encounter or 45 days after the date of theEncounter. The data comes from all [facility]. Test Date/Time Test Type Test Details Facility Name October 18, 2024 12:00 AM Laboratory - Chemistry Order C DIFF EPI PCR PNL STOOL FECES SP [facility] November 02, 2024 12:00 AM Laboratory - Chemistry Order CRP GREEN LI/HEP BLD/PLAS PLASMA SP [facility] November 02, 2024 12:00 AM Laboratory - Chemistry Order COMPREHENSIVE METABOLIC PANEL GREEN LI/HEP BLD/PLAS PLASMA [facility] Lab Results: +/- 30 days of [...] Type Comment November 08, 2024 12:00 AM [facility] LACTOFERRIN,STOOL (STL-MA-PB) FECES Specimen Type: FECES No comment entered. Ordering Provider: ALFIE PHILIP Report Released Date/Time: November 02, 2024 04:52 PM Reporting Lab: [facility] [address] [place] [address] Performing Lab: [facility] [address] [facility] [address] LACTOFERRIN,STOOL (STL-MA-PB) POSITIVE November 03, 2024 12:45 PM [facility] ALPHA-FETOPROTEIN(STL-PB) PLASMA Specimen Type : PLASMA No comment entered. Ordering Provider: KASSI VICTOR Report Released Date/Time: Sep 25, 2024 02:03 PM Reporting Lab: [facility] [address] [place] [address] Performing Lab: [facility] [address] [place] [facility] [place] [address] ALPHA-FETOPROTEIN(STL-PB) <2.00 ng/mL L 1- 8.78 November 03, 2024 12:45 PM [facility] AMMONIA (STL-MA) PLASMA Specimen Type: PLASM A No comment entered. Ordering Provider: ADIN PHILIP Report Released Date/Time: November 02, 2024 04:34 PM Reporting Lab: [facility] [address] [place] [address] Performing Lab: [facility] [address] [place] [place] [place] [address] AMMONIA (STL-MA) 75 umol/L H 13.5-35 November 03, 2024 12:45 PM [facility] CBC BLOOD Specimen Type: BLOOD No comment entered. Ordering Provider: ADIN PHILIP Report Released Date/Time: November 02, 2024 04:33 PM Reporting Lab: [facility] [address] [place] [address] Performing Lab: [facility] [address] [facility] [address] WBC 6.2 10*3/uL 3.6-11.2 RBC 4.05 10*6/uL [...] 05:09 PM ORYX ADMIT TOBACCO SCREEN NO [facility] Tobacco Use History This section includes a history of the smoking, or tobacco-related health factors, that were collected on or before the date of the Encounter. The data comes from the [place] facility where the Encounter took place. Date/Time Smoking Status/Tobacco Use Comment F acility November 08, 2018 11:16 AM VA-TOBACCO FORMER USER [facility] November 08, 2018 11:16 AM VA-TOBACCO QUIT < 1 YEAR [facility] Jul 30, 2016 03:10 PM QUIT TOBACCO IN TH E LAST 12 MONTHS [facility] November 10, 2011 10:27 PM QUIT TOBACCO >12 M O & <7 YRS AGO [facility] Dec 28, 2005 08:38 AM CURRENT NON-TOBACC O USER-HX OF USE [facility] Dec 28, 2005 08:38 AM TOBACCO TERMINATION STAGE [facility] Jun 23, 2005 12:42 PM CURRENT TOBACCO USER [facility] Jun 23, 2005 12:42 PM SMOKER 1-2 PACKS [facility] Advance Directives: All historical and current Section [...] Source Nov 17, 2022 ADVANCE DIRECTIVE ZEYNEPMOISES [facility] Jun 12, 2020 STATE-AUTHORIZED POR TABLE ORDERS ANNE CHATTERJEE [facility] October 21, 2018 RESCINDED ADVANCE DIRECTIVE SHERIF BETANCOURT [facility] November 12, 2011 ADVANCE DIRECTIVE DISCUSSION LIA JUAREZ [facility] Pathology Reports: +/- 30 days of the [...] ENTRY DATE: DEC 05, 2024@16:00:09 AUTHOR: LUAN RAANGOIGNER: URGENCY: STATUS: COMPLETED $APHDR - - - [...] Performing Laboratory: Surgical Pathology Report [facility] CLIA# [id number] [address] [address] $FTR - - - - - - [...] - - NEISHA LUND STANDARD FORM 515 ID:[id number] SEX:M :1945 AGE: 79 LOC:[place] [address] PCP: Truman Amador MD /zachary/ LUAN ARANGO MD, PhD STAFF PATHOLOGIST Signed: 12/05/2024 16:00 LUAN ARANGO [facility] Encounter Notes: All associated encounter notes This section contains the clinical notes associated to the Encounter. Date/Time Encounter Note(s) Provider Source Dec 01, 2024 11:12 AM ANESTHESIOLOGY LONNY WSHEET: LOCAL TITLE: ANES INTRA-OP FLOWSHEET STL STANDARD TITLE: ANESTHESIOLOGY FLOWSHEET DATE OF NOTE: DEC 01, 2024@11:12 ENTRY DATE: DEC 01, 2024@11:12:40 AUTHOR: MAYRA GARDUNO EXP COSIGNER: URGENCY: STATUS: COMPLETED Patient: NEISHA LUND SSN: [id number] Date of Operation: 12/01/2024 Surgery Start Time: Surgery End Time: Anesthesia Care Start: 12/01/2024 10:26 Anesthesia Care End: 12/01/2024 11:12 Anesthesia Method: - Monitored 12/01/2024 10:34 (Primary), Level Of Consciousness: Sedated, Monitors Applied, Oxygen Therapy: Mask, EtCO2 Verified: Waveform Positioning: Head Neutral, Head And Neck In Alignment With Spine, Pressure Points Padded & Checked, Eyes, Ears And Nose Free Of Pressure ASA Number: 4 Procedure: colonoscopy Diagnosis: screening; anemia Holding, Anesthesia, PACU Drugs: --------- Lidocaine: 100 mg Propofol: 130 mg Propofol gtt: 292.329 mg Holding, Anesthesia, PACU Fluids: Normal Saline: 300 ml Resources: Headrest - Pillow Staff: --------- ANDRE MCDONALD ANES. SUPER. ECHO HERNANDEZ PRIN. ANES. Procedure Date: 12/01/2024 Procedure Start Time: 12/01/2024 10:32 Procedure End Time: 12/01/2024 11:08 /zachary/ MAYRA GARDUNO CERTIFIED REGISTERED NURSE PANEL INSTRUMENT REPAIRER Signed: 12/01/2024 11:12 MAYRA GARDUNO [facility]
--- OUTSIDE RECORDS SUMMARY | 2024-12-01 07:07 | XMS_ITS | Encounter Summary ---
Author Name [facility] [place] Address [address] [place] [address] Care Team Providers Care Docketing Specialist Name Role Phone TRUMAN AMADOR Primary Care [...] Type Encounter Description Reason Pro vider Source Dec 01, 2024 12:07 PM OFFICE O/P EST SF 10 MIN GASTROENTEROLOGY ICD-10-CM K70.30 Alcoholic cirrhosis of liver without ascites CHAPITO FRANK Epifanio Encounter Template Text not used by [place] Assessments - Encounter Diagnoses This section includes the primary and secondary diagnoses documented for the Encounter. Date/Time Primary/Secondary Diagnosis Diagnosis Name Provider Source Dec 01, 2024 12:19 PM PRIMARY Alcoholic cirrhosis of liver without ascites KASSI FRANK [facility] Dec 01, 2024 12:19 PM SECONDARY Acquired absence of right leg below knee KASSI FRANK [facility] Plan of Treatment: Future Appointments (+ 6 months) and Future Tests (+/- 45 days) The Plan of Treatment section includes future care activities for the patient from all [facility]. This section includes future appointments and future orders which are active, pending or scheduled. Future Appointments This section includes appointments that were scheduled to occur 6 months from the date of the Encounter, up to a maximum of 20 appointments. The data comes from all [facility]. Appointment Date/Time Appointment Type Appointme nt Facility Name Dec 11, 2024 01:40 PM AMBULATORY - MEDICINE [facility] Dec 20, 2024 09:30 AM AMBULATORY - MEDICINE [facility] Jan 18, 2025 09:30 AM AMBULATORY - SURGERY [facility] Jan 18, 2025 10:51 AM AMBULATORY - MEDICINE [facility] Jan 22, 2025 03:30 PM AMBULATORY - MEDICINE [facility] Jan 26, 2025 11:00 AM AMBULATORY - NONE [facility] Jan 30, 2025 03:58 AM AMBULATORY - MEDICINE [facility] Feb 01, 2025 03:30 PM AMBULATORY - MEDICINE [facility] Mar 01, 2025 01:00 PM AMBULATORY - REHAB MEDICIN E [facility] Mar 14, 2025 10:15 AM AMBULATORY - MEDICINE [facility] May 03, 2025 10:45 AM AMBULATORY - SURGERY [facility] May 03, 2025 01:00 PM AMBULATORY - SURGERY [facility] Active, Pending, and Scheduled Orders This section includes a listing of several types of active, pending, and scheduled orders, including clinic medications orders, diagnostic test orders, procedure orders and consult orders; where the start date of the order is 45 days before the date of the Encounter or 45 days after the date of theEncounter. The data comes from all [facility]. Test Date/Time Test Type Test Details Facility Name October 18, 2024 12:00 AM Laboratory - Chemistry Order C DIFF EPI PCR PNL STOOL FECES SP [facility] November 02, 2024 12:00 AM Laboratory - Chemistry Order CRP GREEN LI/HEP BLD/PLAS PLASMA SP [facility] November 02, 2024 12:00 AM Laboratory - Chemistry Order COMPREHENSIVE METABOLIC PANEL GREEN LI/HEP BLD/PLAS PLASMA SP [facility] Lab Results: +/- 30 days of the encounter This section includes the Chemistry and Hematology Lab Results on record with [place] for the patient. Radiology Reports and Pathology Reports are provided separately, in subsequent sections. Lab Results This section contains the Chemistry/Hematology Results that were resulted 30 days before or 30 daysafter the date of the Encounter. Date/Time Source Result Type Result - Unit Interpretation Reference Range Specimen Type Comment November 08, 2024 12:00 AM [facility] LACTOFERRIN,STOOL (STL-MA-PB) FECES Specimen Type: FECES No comment entered. Ordering Provider: ALFIE PHILIP Report Released Date/Time: November 02, 2024 04:52 PM Reporting Lab: [place] [address] [facility] [address] Performing Lab: [place] [address] [facility] [address] LACTOFERRIN,STOOL (STL-MA-PB) POSITIVE November 03, 2024 12:45 PM [facility] ALPHA-FETOPROTEIN(STL-PB) PLASMA Specimen Type : PLASMA No comment entered. Ordering Provider: KASSI FRANK Report Released Date/Time: Sep 25, 2024 02:03 PM Reporting Lab: [place] [address] [facility] [address] Performing Lab: [place] [address] [facility] [address] ALPHA-FETOPROTEIN(STL-PB) <2.00 ng/mL L 1- 8.78 November 03, 2024 12:45 PM [facility] AMMONIA (STL-MA) PLASMA Specimen Type: PLASM A No comment entered. Ordering Provider: ADIN PHILIP Report Released Date/Time: November 02, 2024 04:34 PM Reporting Lab: [place] [address] [facility] [address] Performing Lab: [facility] [address] [facility] [address] AMMONIA (STL-MA) 75 umol/L H 13.5-35 November 03, 2024 12:45 PM [facility] CBC BLOOD Specimen Type: BLOOD No comment entered. Ordering Provider: ADIN PHILIP Report Released Date/Time: November 02, 2024 04:33 PM Reporting Lab: [facility] [address] [facility] [address] Performing Lab: [facility] [address] [facility] [address] WBC 6.2 10*3/uL 3.6-11.2 RBC 4.05 10*6/uL [...] place. Date/Time Current Smoking Status Comment Facil it[facility] Nov 12, 2020 05:09 PM ORYX ADMIT TOBACCO SCREEN NO [facility] Tobacco Use History This section includes a history of the smoking, or tobacco-related health factors, that were collected on or before the date of the Encounter. The data comes from the [place] facility where the Encounter took place. Date/Time Smoking Status/Tobacco Use Comment F acility November 08, 2018 11:16 AM VA-TOBACCO FORMER USER [facility] November 08, 2018 11:16 AM VA-TOBACCO QUIT < 1 YEAR [facility] Jul 30, 2016 03:10 PM QUIT TOBACCO IN TH E LAST 12 MONTHS [facility] November 10, 2011 10:27 PM QUIT TOBACCO >12 M O & <7 YRS AGO [facility] Dec 28, 2005 08:38 AM CURRENT NON-TOBACC O USER-HX OF USE [facility] Dec 28, 2005 08:38 AM TOBACCO TERMINATION STAGE [facility] Jun 23, 2005 12:42 PM CURRENT TOBACCO USER [facility] Jun 23, 2005 12:42 PM SMOKER 1-2 PACKS [facility] Advance Directives: All historical and current [...] Nov 17, 2022 ADVANCE DIRECTIVE MO[facility] ADHIKARI [facility] Jun 12, 2020 STATE-AUTHORIZED POR TABLE ORDERS ANNE CHATTERJEE [facility] October 21, 2018 RESCINDED ADVANCE DIRECTIVE SHERIF BETANCOURT [facility] November 12, 2011 ADVANCE DIRECTIVE DISCUSSION LIA JUAREZ [facility] Pathology Reports: +/- 30 days of the [...] comes from all [place] treatment facilities. Date/Time Pathology Report Provider Source [...] Performing Laboratory: Surgical Pathology Report Performed By: [facility] [address] [facility] CLIA# [id number] [address] [facility] [address] [place] [address] $FTR - - - - - - [...] - - NEISHA LUND STANDARD FORM 515 ID:[id number] SEX:M :1945 AGE: 79 [facility] PCP: Truman Amador MD /zachary/ LUAN ARANGO MD, PhD STAFF PATHOLOGIST Signed: 12/05/2024 16:00 LUAN ARANGO [facility] Encounter Notes: All associated encounter notes This section contains the clinical notes associated to the Encounter. Date/Time Encounter Note(s) Provider Source Dec 01, 2024 12:07 PM GASTROENTEROLOGY O UTPATIENT NOTE: LOCAL TITLE: GASTROENTEROLOGY OUTPATIENT FOLLOW UP RUST STANDARD TITLE: GASTROENTEROLOGY OUTPATIENT NOTE DATE OF NOTE: DEC 01, 2024@12:07 ENTRY DATE: DEC 01, 2024@12:07:46 AUTHOR: KASSI FRANK COSIGNER: URGENCY: STATUS: COMPLETED Pt seen in GI lab post colonoscopy. Of note, Dr. Andraed had exmined him pre- procedure and large volume ascites was not found so procedure proceeded. Pt's abdomen did not look distended to my eval either. Umbilical hernia is reducible, no skin changes. PCP placed surgery referral. I suspect that surgery would not pursue unless/until incarcerated given liver disease. Bedside u/s revealed scant ascites in the RLQ, interspersed between loops of bowel. I did not appreciate any ascites in the LLQ or supraumbilical. This was discussed with pt at the bedside. I would recommend he cont. amiloride 10 mg BID and lasix 80 mg daily. He does feel his legs have been swollen, has been hard to get his prothesis on. He does have a new prothesis, I'm unsure if that would have any effect on the fit. His sock has made a small indent in his leg, 1+ edema. Denies using the salt shaker but unknown what salt is already in food as assisted living home he resides at. Recommend he keep f/u as scheduled: 01/10/2025 12:20 ALMAS BRODERICK 1 01/26/2025 11:00 TRINA CLR PACT PHONE NUTR 03/14/2025 10:15 KARENHEP LIVER /es/ Kassi Frank PA-C Gastroenterology/Hepatology Physician Goal Umpire Signed: 12/01/2024 12:19 KASSI FRANK [facility]
--- OUTSIDE RECORDS SUMMARY | 2024-12-11 08:40 | XMS_ITS | Encounter Summary ---
Author Name [facility] [place] [facility] [place] Address [address] [place] [address] Care Team Providers Care Application Support Intern Name Role Phone TRUMAN AMADOR Primary Care [...] section includes the information on record at [place] for the Encounter. Date/Time Encounter Type Encounter Description Reason Pro vider Source Dec 11, 2024 01:40 PM OFFICE O/P EST LOW 20 MIN GASTROENTEROLOGY ICD-10-CM R19.4 Change in bowel habit YOMAIRA PHILIP Epifanio Encounter Template Text not used by [place] Assessments - Encounter Diagnoses This section includes the primary and secondary diagnoses documented for the Encounter. Date/Time Primary/Secondary Diagnosis Diagnosis Name Provider Source Dec 11, 2024 03:59 PM PRIMARY Change in bowel habit YOMAIRA PHILIP [facility] Dec 11, 2024 03:59 PM SECONDARY Alcohol dependence, in remission YOMAIRA PHILIP [facility] Dec 11, 2024 03:59 PM SECONDARY Alcohol-induced chronic pancreatitis YOMAIRA PHILIP [facility] Dec 11, 2024 03:59 PM SECONDARY Alcoholic cirrhosis of liver with ascites YOMAIRA PHILIP [facility] Dec 11, 2024 03:59 PM SECONDARY Hepatic encephalopathy YOMAIRA PHILIP [facility] Plan of Treatment: Future Appointments (+ 6 months) and Future Tests (+/- 45 days) The Plan of Treatment section includes future care activities for the patient [facility] [place] [facility] This section includes future appointments and future orders which are active, pending or scheduled. Future Appointments This section includes appointments that were scheduled to occur 6 months from the date of the Encounter, up to a maximum of 20 appointments. The data comes from all [facility] facilities. Appointment Date/Time Appointment Type Appointme nt Facility Name Dec 20, 2024 09:30 AM AMBULATORY - MEDICINE [facility] Jan 18, 2025 09:30 AM AMBULATORY - SURGERY [facility] Jan 18, 2025 10:51 AM AMBULATORY - MEDICINE [facility] Jan 22, 2025 03:30 PM AMBULATORY - MEDICINE [facility] Jan 26, 2025 11:00 AM [facility] NONE [facility] Jan 30, 2025 03:58 AM AMBULATORY - MEDICINE [facility] Feb 01, 2025 03:30 PM AMBULATORY - MEDICINE [facility] Mar 01, 2025 01:00 PM AMBULATORY - REHAB MEDICIN E [facility] Mar 14, 2025 10:15 AM AMBULATORY - MEDICINE [facility] May 03, 2025 10:45 AM [facility] May 03, 2025 01:00 PM AMBULATORY - SURGERY [facility] Active, Pending, and Scheduled Orders This section includes a listing of several types of active, pending, and scheduled orders, including clinic medications orders, diagnostic test orders, procedure orders and consult orders; where the start date of the order is 45 days before the date of the Encounter or 45 days after the date of theEncount. The data comes from all [place] treatment facilities. Test Date/Time Test Type Test Details Facility Name November 02, 2024 12:00 AM Laboratory - Chemistry Order CRP GREEN LI/HEP BLD/PLAS PLASMA SP [facility] November 02, 2024 12:00 AM Laboratory - Chemistry Order COMPREHENSIVE METABOLIC PANEL GREEN LI/HEP BLD/PLAS PLASMA SP [facility] Jan 19, 2025 11:34 AM Consult Order OT OUTPATI ENT CONSULT ST[facility] Cons Assistant Mechanic's Choice [facility] Vital Signs: All taken on the encounter date This section contains inpatient and outpatient Vital Signs collected on the date of the Encounter. Date/Time Temperature Pulse Blood Pressure Respiratory Rate SP02 Pain Height Weight Body Mass Index Source Dec 11, 2024 01:39 PM 97.7 F 75 /min 111/52 mm[Hg] 18 /min 93 % 0 176 lb 24 [facility] Social History: Smoking Status (Most current) and Tobacco Use (All prior to encounter date) This section includes the most current, and the historical, smoking and tobacco- related health factors from the [place] facility where the Encounter took place. Current Smoking Status This section includes the most current smoking, or tobacco-related health factor, from the [place] facility where the Encounter took place. Date/Time Current Smoking Status Comment Melissa stoddard Nov 12, 2020 05:09 PM ORYX ADMIT TOBACCO SCREEN NO [facility] Tobacco Use History This section includes a history of the smoking, or tobacco-related health factors, that were collected on or before the date of the Encounter. The data comes from the [place] facility where the Encounter took place. Date/Time Smoking Status/Tobacco Use Comment F acility November 08, 2018 11:16 AM [place]-TOBACCO FORMER USER [facility] November 08, 2018 11:16 AM [place]-TOBACCO QUIT < 1 YEAR [facility] Jul 30, 2016 03:10 PM QUIT TOBACCO IN TH E LAST 12 MONTHS [facility] November 10, 2011 10:27 PM QUIT TOBACCO >12 M O & <7 YRS AGO [facility] Dec 28, 2005 08:38 AM CURRENT NON-TOBACC O USER-HX OF USE [facility] Dec 28, 2005 08:38 AM TOBACCO TERMINATION STAGE [facility] Jun 23, 2005 12:42 PM CURRENT TOBACCO USER [facility] Jun 23, 2005 12:42 PM SMOKER 1-2 PACKS [facility] Advance Directives: All historical and current Section Date Range: From patient's date of to the date document was created. This section includes ALL of a patient's completed or amended [place] Advance and Rescinded Directives. The entries below indicate that a directive exists for the patient, but an actual copy is not included with this document. The data comes from all [facility]. Date Advance Directives Provider Source Nov 17, 2022 ADVANCE DIRECTIVE MOISES ADHIKARI [facility] Jun 12, 2020 STATE-AUTHORIZED POR TABLE ORDERS ANNE CHATTERJEE [facility] October 21, 2018 RESCINDED ADVANCE DIRECTIVE SHERIF BETANCOURT [facility] November 12, 2011 ADVANCE DIRECTIVE DISCUSSION LIA JUAREZ [facility] Pathology Reports: +/- 30 days of [...] the Encounter. The data comes from all [facility] facilities. Date/Time Pathology Report Provider Source Dec [...] Performing Laboratory: Surgical Pathology Report Performed By: [id number] [place] [id number] $FTR - - - - - - [...] - - NEISHA LUND STANDARD FORM 515 ID:[id number] SEX:M :1945 AGE: 79 LOC:GILABA2 PCP: Truman Amador MD /zachary/ LUAN ARANGO MD, PhD STAFF PATHOLOGIST Signed: 12/05/2024 16:00 LUAN ARANGO [facility] Encounter Notes: All associated encounter notes This section contains the clinical notes associated to the Encounter. Date/Time Encounter Note(s) Provider Source Dec 11, 2024 03:54 PM GASTROENTEROLOGY OUTPATIENT NOTE: LOCAL TITLE: GASTROENTEROLOGY OUTPATIENT FOLLOW UP [facility] STANDARD TITLE: GASTROENTEROLOGY OUTPATIENT NOTE DATE OF NOTE: DEC 11, 2024@15:54 ENTRY DATE: DEC 11, 2024@15:54:05 AUTHOR: ADIN PHILIP COSIGNER: URGENCY: STATUS: COMPLETED GI note Patient returns in follow-up regarding loose stool and abdominal discomfort. Underwent recent colonoscopy and biopsies for eval of microscopic colitis and biopsies were negative. Did have small TA. Since colonoscopy denies blood in stool. And, bowels are much improved. Biggest complaint is pain (umibilical hernia) and confusion/encepalopathy. Has used lactulose in the past but that exacerbated his bowel issues. Exam: unchanged A/P: nice man with ESLD/chronic panc with abdominal pain/bowel changes/negative colonoscopy and worsening encephalopathy. 1. discussion with patient and his friend and would recommend against pain meds/surgery for hernia pain especially in light of liver disease/encephalopathy 2. trial of xifaxin 550 bid for HE and suspected SIBO 3. call with an update in 2-4 weeks Thanks/JTK 25 minutes spent on chart review, HPI and education. /zachary/ ADIN PHILIP Gastroenterology Signed: 12/11/2024 15:59 ADIN PHILIP [facility]
--- OUTSIDE RECORDS SUMMARY | 2024-12-11 08:45 | XMS_ITS | Encounter Summary ---
Author Name [facility] [facility] [place] [facility] [place] Address [address] [place] [address] Care Team Providers Care Strategy Analyst Name Role Phone TRUMAN AMADOR Primary Care Provider Unavaildana holland Insurance Providers: All historical and current Section [...] section includes the [place] on [place] at [place] for the Encounter. Date/Time Encounter Type Encounter Description Reason Provider Source Dec 11, 2024 01:45 PM Outpatient Encounter GI ENDOSCOPY CELINE ANDRADE Encounter Template Text not used by [place] Plan of Treatment: Future Appointments (+ 6 months) and Future Tests (+/- 45 days) The Plan of Treatment section includes future care activities for the patient from all [place] treatmentfacilities. This section includes future appointments and future orders which are active, pending or scheduled. Future Appointments This section includes appointments that were scheduled to occur 6 months from the date of the Encounter, up to a maximum of 20 appointments. The data comes from all [place] treatment facilities. Appointment Date/Time Appointment Type Appointme nt Facility Name Dec 20, 2024 09:30 AM [facility] Jan 18, 2025 09:30 AM AMBULATORY - SURGERY [facility] Jan 18, 2025 10:51 AM AMBULATORY - MEDICINE [facility] Jan 22, 2025 03:30 PM AMBULATORY - MEDICINE . [facility] Jan 26, 2025 11:00 AM AMBULATORY - NONE . JOSE Weiner [facility] Jan 30, 2025 03:58 AM AMBULATORY - MEDICINE [facility] Feb 01, 2025 03:30 PM AMBULATORY - MEDICINE . [facility] Mar 01, 2025 01:00 PM AMBULATORY - REHAB MEDICIN E [facility] Mar 14, 2025 10:15 AM AMBULATORY - MEDICINE [facility] May 03, 2025 10:45 AM AMBULATORY - SURGERY [facility] May 03, 2025 01:00 PM AMBULATORY - SURGERY [facility] Active, Pending, and Scheduled Orders This section includes a listing of several types of active, pending, and scheduled orders, including clinic medications orders, diagnostic test orders, procedure orders and consult orders; where the start date of the order is 45 days before the date of the Encounter or 45 days after the date of theEncounter. The data comes from all [facility] facilities. Test Date/Time Test Type Test Details Facility Name November 02, 2024 12:00 AM Laboratory - Chemistry Order CRP GREEN LI/HEP BLD/PLAS PLASMA [facility] November 02, 2024 12:00 AM Laboratory - Chemistry Order COMPREHENSIVE METABOLIC PANEL GREEN LI/HEP BLD/PLAS PLASMA [facility] Jan 19, 2025 11:34 AM Consult Order OT OUTPATI ENT CONSULT [facility] Cons Lining Closer's Choice [facility] Vital Signs: All taken on the encounter date This section contains inpatient and outpatient Vital Signs collected on the date of the Encounter. Date/Time Temperature Pulse Blood Pressure Respiratory Rate SP02 Pain Height Weight Body Mass Index Source Dec 11, 2024 01:39 PM 97.7 F 75 /min 111/52 mm[Hg] 18 /min 93 % 0 176 lb 24 [facility] Social History: Smoking Status (Most current) and Tobacco Use (All prior to encounter date) This section includes the most current, and the historical, smoking and tobacco- related health factors from the [place] facility where the Encounter took place. Current Smoking Status This section includes the most current smoking, or tobacco-related health factor, from the [place] facility where the Encounter took place. Date/Time Current Smoking Status Comment Melissa stoddard Nov 12, 2020 05:09 PM ORYX ADMIT TOBACCO SCREEN NO [facility] Tobacco Use History This section includes a history of the smoking, or tobacco-related health factors, that were collected on or before the date of the Encounter. The data comes from the [place] facility where the Encounter took place. Date/Time Smoking Status/Tobacco Use Comment F acility November 08, 2018 11:16 AM [place]-TOBACCO FORMER USER [facility] November 08, 2018 11:16 AM VA-TOBACCO QUIT < 1 YEAR [facility] Jul 30, 2016 03:10 PM QUIT TOBACCO IN TH E LAST 12 MONTHS [facility] November 10, 2011 10:27 PM QUIT TOBACCO >12 M O & <7 YRS AGO [facility] Dec 28, 2005 08:38 AM CURRENT NON-TOBACC O USER-HX OF USE [facility] Dec 28, 2005 08:38 AM TOBACCO TERMINATION STAGE [facility] Jun 23, 2005 12:42 PM CURRENT TOBACCO USER [facility] Jun 23, 2005 12:42 PM SMOKER 1-2 PACKS [facility] Advance Directives: All historical and current Section Date Range: From patient's date of to the date document was created. This section includes ALL of a patient's completed or amended [place] Advance and Rescinded Directives. The entries below indicate that a directive exists for the patient, but an actual copy is not included with this document. The data comes from all [facility]. Date Advance Directives Provider Source Nov 17, 2022 ADVANCE DIRECTIVE MOISES ADHIKARI [facility] Jun 12, 2020 STATE-AUTHORIZED POR TABLE ORDERS ANNE CHATTERJEE [facility] October 21, 2018 RESCINDED ADVANCE DIRECTIVE SHERIF BETANCOURT [facility] November 12, 2011 ADVANCE DIRECTIVE DISCUSSION MARYEpifanioLIA Annabelle [facility] Pathology Reports: +/- 30 days of [...] the Encounter. The data comes from all [place] treatment facilities. Date/Time Pathology Report Provider Source [...] Performing Laboratory: Surgical Pathology Report Performed By: [facility] CLIA# [id number] [address] [place] [id number] $FTR - - - - - - [...] - - - - - - NEISHA FISH STANDARD FORM 515 ID:[id number] SEX:M :1945 AGE: 79 LOC:GILABA2 PCP: Truman Amador MD /zachary/ LUAN ARANGO MD, PhD STAFF PATHOLOGIST Signed: 12/05/2024 16:00 LUAN ARANGO [facility] Encounter Notes: All associated encounter notes This section contains the clinical notes associated to the Encounter. Date/Time Encounter Note(s) Provider Source Dec 11, 2024 09:29 PM GASTROENTEROLOGY L ETTERS: LOCAL TITLE: GI BIOPSY RESULTS LETTER STANDARD TITLE: GASTROENTEROLOGY LETTERS DATE OF NOTE: DEC 11, 2024@21:29 ENTRY DATE: DEC 11, 2024@21:29:59 AUTHOR: CELINE ANDRADE COSIGNER: URGENCY: STATUS: COMPLETED [address] [address] DEC 11, 2024 NEISHA FISH [address] [place], [place] [address] Dear Neisha Fish, Thank you for completing your Colonoscopy recently at [facility]. I am writing to give you the pathology results for the tissue removed during the procedure. The random colon biopsies were essentially normal. There were no findings to explain the diarrhea. A small precancerous tubular adenoma polyp was removed completely. Recommendations: 1. Follow in GI Clinic and Hepatology Clinic as scheduled. 2. Given your age and other medical conditions would defer further screening tests for Colorectal cancer such as colonoscopy or stool tests. If you want to see the full pathology report, you may do this by logging on the [employer] website at [email or web address]. If you have not already done so, I recommend you visit this web site to set up your account. You will then be able to review this result and all future results. Please call [phone] if you have any questions about this letter. Sincerely, Celine Andrade MD Staff Physician CELINE ANDRADE [facility]
--- OUTSIDE RECORDS SUMMARY | 2024-12-20 04:30 | XMS_ITS | Encounter Summary ---
Author Name [facility] [place] [facility] [place] [facility] [facility] [place] Address [address], [place] [address] Care Team Providers Care Cosmetic Counselor Name Role Phone TRUMAN AMADOR Primary Care [...] section includes the information on record at [place] for the Encounter. Date/Time Encounter Type Encounter Description Reason Provider Source Dec 20, 2024 09:30 AM OFFICE O/P EST MOD 30 MIN ENDOCRINOLOGY ICD-10-CM M81.0 Age-related osteoporosis w/o current pathological fracture PATRICIA AGOSTO PH Ep[employer]anio Encounter Template Text not used by [place] Assessments - Encounter Diagnoses This section includes the primary and secondary diagnoses documented for the Encounter. Date/Time Primary/Secondary Diagnosis Diagnosis Name Provider Source Dec 20, 2024 10:45 AM PRIMARY Age-related osteoporosis w/o current pathological fracture MARTA AGOSTO [facility] Plan of Treatment: Future Appointments (+ 6 months) and Future Tests (+/- 45 days) The Plan of Treatment section includes future care activities for the patient [facility] [place] [facility] This section includes future appointments and future orders which are active, pending or scheduled. Future Appointments This section includes appointments that were scheduled to occur 6 months from the date of the Encounter, up to a maximum of 20 appointments. The data comes from all [facility]. Appointment Date/Time Appointment Type Appointme nt Facility Name Jan 18, 2025 09:30 AM AMBULATORY - SURGERY [facility] Jan 18, 2025 10:51 AM AMBULATORY - MEDICINE [facility] Jan 22, 2025 03:30 PM AMBULATORY - MEDICINE [facility] Jan 26, 2025 11:00 AM AMBULATORY - NONE . [facility] Jan 30, 2025 03:58 AM AMBULATORY - MEDICINE [facility] Feb 01, 2025 03:30 PM AMBULATORY - MEDICINE [facility] Mar 01, 2025 01:00 PM AMBULATORY - REHAB MEDICIN [facility] Mar 14, 2025 10:15 AM AMBULATORY - MEDICINE [facility] May 03, 2025 10:45 AM AMBULATORY - SURGERY [facility] May 03, 2025 01:00 PM AMBULATORY - SURGERY [facility] Active, Pending, and Scheduled Orders This section includes a listing of several types of active, pending, and scheduled orders, including clinic medications orders, diagnostic test orders, procedure orders and consult orders; where the start date of the order is 45 days before the date of the Encounter or 45 days after the date of theEncounter. The data comes from all [facility]. Test Date/Time Test Type Test Details Facility Name Jan 19, 2025 11:34 AM Consult Order OT OUTPATI ENT CONSULT STL Cons Emergency Preparedness Coordinator's Choice [facility] Lab Results: +/- 30 days of the encounter This section includes the Chemistry and Hematology Lab Results on record with [place] for the patient. Radiology Reports and Pathology Reports are provided separately, in subsequent sections. Lab Results This section contains the Chemistry/Hematology Results that were resulted 30 days before or 30 daysafter the date of the Encounter. Date/Time Source Result Type Result - Unit Interpretation Reference Range Specimen Type Comment Jan 19, 2025 08:15 PM [facility] COMPREHENSIVE METABOLIC PANEL PLASMA Specimen Type: PLASMA Comment: No hemolysis noted. Ordering Provider: BALTA BARR Report Released Date/Time: Jan 18, 2025 07:27 PM Reporting Lab: [address] [address] Performing Lab: [address] [address] CREATININE 1.08 mg/dL 0.7-1.3 UREA NITROGEN 22.3 mg/dL 9.0-25.0 GLUCOSE 98 mg/dL 72-99 SODIUM 135 meq/L L 136-145 POTASSIUM 3.6 meq/L 3.5-5 CHLORIDE 102 meq/L 98-107 CARBON DIOXIDE 26 meq/L 22-31 CALCIUM 8.4 mg/dL 8.4-10.4 PROTEIN 6.4 g/dL 6-8.6 ALBUMIN 3.4 g/dL 3.4-5 TOTAL BILIRUBIN 0.7 mg/dL 0.2-1.2 ALKALINE PHOSPHATASE 113 U/L 40-150 AST/SGOT 52 U/L H 5-34 ALT/SGPT 35 U/L 8-40 EGFR (CKD-EPI 2020) 70.7 >60 Jan 19, 2025 08:15 PM [facility] CBC BLOOD Specimen Type: BLOOD No comment entered. Ordering Provider: BALTA BARR Report Released Date/Time: Jan 18, 2025 07:27 PM Reporting Lab: [address] [address] Performing Lab: [address] [address] WBC 5.8 10*3/uL 3.6-11.2 RBC 3.87 10*6/uL L 4.10-5.70 HGB 10.5 g/dL L 13.1-16.8 HCT 33.9 L 38.2-48.4 MCV 87.6 fL 80.0-100.0 MCH 27.1 pg 27.0-34.0 MCHC 31.0 g/dL L 33.0-36.0 PLT 115 10*3/uL L 150-400 MPV 11.0 fL 7.5-11.2 RDW 16.3 H 11.8-15.1 LYMPHOCYTES, AUTO % 10 MONOCYTES, AUTO % 16 NEUTROPHILS, AUTO % 69 EOSINOPHILS, AUTO % 5 BASOPHILS, AUTO % 1 LYMPHOCYTES, ABSOLUTE 0.55 10*3/uL L 0.77- 4.50 MONOCYTES, ABSOLUTE 0.92 10*3/uL H 0.19-0. 80 NEUTROPHILS, ABSOLUTE 4.01 10*3/uL 2.10- 8.00 EOSINOPHILS, ABSOLUTE 0.26 10*3/uL 0.00- 0.60 BASOPHILS, ABSOLUTE 0.03 10*3/uL 0.00-0. 20 IMMATURE PLT FRACTION 4.1 1.0-7.0 NRBC% 0 Jan 19, 2025 11:12 AM [facility] CELL COUNT BODY FLUIDS (STL) PERITONEAL FL. Specimen T ype: PERITONEAL FL. No comment entered. Ordering Provider: ELIJAH LOZANO Report Released Date/Time: Jan 17, 2025 02:19 PM Reporting Lab: [address] [address] Performing Lab: [address] [address] MESOTHELIAL 2 GROSS APPEARANCE yellow/hazy FL SEGS 28 FL LYMPHS 34 FL MACROPHAGES 15 FL MONOCYTES 21 FL NUCLEATED CELLS 195 /uL 0-500 RBC FL 329 /uL Jan 18, 2025 08:30 PM [facility] MRSA SURVL NARES DNA NARES Specimen Type: SPIKE ES Comment: Qualitative real-time PCR test for the rapid detection of methicillin-resistant Staphylococcus aureus (MRSA) DNA from nasal swabs. A negative result does not preclude infection with the agent(s) tested and should not be used as the sole basis for treatment or other patient management decisions. A positive test does not necessarily indicate the presence of viable organisms, following bacterial culture to recover the organism for further characterization and susceptibility testing. All results must be combined with clinical observations, patient history, and epidemiological information for final interpretation. Ordering Provider: BALTA BARR Report Released Date/Time: Jan 18, 2025 07:27 PM Reporting Lab: [address] [address] Performing Lab: [address] [address] MRSA SURVL NARES DNA Negative Negative Jan 18, 2025 08:11 PM [facility] COMPREHENSIVE METABOLIC PANEL PLASMA Specimen Type: PLASMA Comment: No hemolysis noted. Ordering Provider: BALTA BARR Report Released Date/Time: Jan 18, 2025 07:27 PM Reporting Lab: [address] [address] Performing Lab: [address] [address] CREATININE 0.98 mg/dL 0.7-1.3 UREA NITROGEN 19.8 mg/dL 9.0-25.0 GLUCOSE 102 mg/dL H 72-99 SODIUM 136 meq/L 136-145 POTASSIUM 3.7 meq/L 3.5-5 CHLORIDE 103 meq/L 98-107 CARBON DIOXIDE 25 meq/L 22-31 CALCIUM 8.4 mg/dL 8.4-10.4 PROTEIN 6.7 g/dL 6-8.6 ALBUMIN 3.2 g/dL L 3.4-5 TOTAL BILIRUBIN 1.0 mg/dL 0.2-1.2 ALKALINE PHOSPHATASE 127 U/L 40-150 AST/SGOT 76 U/L H 5-34 ALT/SGPT 43 U/L H 8-40 EGFR (CKD-EPI 2020) 79.4 >60 Jan 18, 2025 08:11 PM [facility] CBC BLOOD Specimen Type: BLOOD No comment entered. Ordering Provider: BALTA BARR Report Released Date/Time: Jan 18, 2025 07:27 PM Reporting Lab: [address] [address] Performing Lab: [address] [address] WBC 5.1 10*3/uL 3.6-11.2 RBC 4.14 10*6/uL 4.10-5.70 HGB 11.5 g/dL L 13.1-16.8 HCT 36.2 L 38.2-48.4 MCV 87.4 fL 80.0-100.0 MCH 27.8 pg 27.0-34.0 MCHC 31.8 g/dL L 33.0-36.0 PLT 120 10*3/uL L 150-400 MPV 11.4 fL H 7.5-11.2 RDW 16.5 H 11.8-15.1 LYMPHOCYTES, AUTO % 12 MONOCYTES, AUTO % 15 NEUTROPHILS, AUTO % 70 EOSINOPHILS, AUTO % 3 BASOPHILS, AUTO % 0 LYMPHOCYTES, ABSOLUTE 0.61 10*3/uL L 0.77- 4.50 MONOCYTES, ABSOLUTE 0.75 10*3/uL 0.19-0. 80 NEUTROPHILS, ABSOLUTE 3.57 10*3/uL 2.10- 8.00 EOSINOPHILS, ABSOLUTE 0.14 10*3/uL 0.00- 0.60 BASOPHILS, ABSOLUTE 0.01 10*3/uL 0.00-0. 20 IMMATURE PLT FRACTION 3.2 1.0-7.0 Jan 18, 2025 02:25 PM [facility] AMMONIA (STL-MA) PLASMA Specimen Type: PLASM A No comment entered. Ordering Provider: BRET PRINCE Report Released Date/Time: Jan 18, 2025 02:17 PM Reporting Lab: [facility] [address] [facility] [address] Performing Lab: [facility] [address] [place] [phone] AMMONIA (STL-MA) 35 umol/L 13.5-35 Jan 18, 2025 11:50 AM [facility] LIPASE PLASMA Specimen Type: PLASM A Comment: Aspartate Transaminase result may show positive bias due to hemolysis. K result canceled due to hemolysis. Specimen moderately hemolyzed. potassium Cancelled due to moderate hemolysis. Notified yvrose caro rn @1324 01/18/25 reg Ordering Provider: PRESTON JONES Report Released Date/Time: Jan 18, 2025 11:49 AM Reporting Lab: [facility] [address] [facility] [address] Performing Lab: [facility] [address] [facility] [address] LIPASE 31 U/L 8-78 Jan 18, 2025 11:50 AM [facility] CBC BLOOD Specimen Type: BLOOD No comment entered. Ordering Provider: PRESTON JONES Report Released Date/Time: Jan 18, 2025 11:49 AM Reporting Lab: [facility] [address] [facility] [address] Performing Lab: [facility] [address] [facility] [address] WBC 6.8 10*3/uL 3.6-11.2 RBC 4.06 10*6/uL L 4.10-5.70 HGB 11.2 g/dL L 13.1-16.8 HCT 34.9 L 38.2-48.4 MCV 86.0 fL 80.0-100.0 MCH 27.6 pg 27.0-34.0 MCHC 32.1 g/dL L 33.0-36.0 PLT 121 10*3/uL L 150-400 MPV 11.6 fL H 7.5-11.2 RDW 16.3 H 11.8-15.1 IMMATURE PLT FRACTION 4.1 1.0-7.0 NEUTROPHILS 85.7 MONOCYTES 6.2 EOSINOPHILS 2.7 BASOPHILS 0.9 ANISOCYTOSIS 1+ POIKILOCYTOSIS 2+ MACROCYTOSIS 1+ TANIA CELLS 2+ ACANTHOCYTES 1+ PAPPENHEIMER BODIES 0 LYMPHOCYTES 4.5 TEARDROPS 1+ PLT EST-CV DECREASED ADEQUATE BASO#-MDIFF 0.06 10*3/uL 0.01-0.20 EO#-MDIFF 0.18 10*3/uL 0.00-0.60 MONO#-MDIFF 0.42 10*3/uL 0.19-0.80 LYMPH#-MDIFF 0.31 10*3/uL L 0.77-4.50 NEUT#-MDIFF 5.83 10*3/uL 2.10-8.00 Jan 18, 2025 11:50 AM [facility] COMPREHENSIVE METABOLIC PANEL PLASMA Specimen Type: PLASMA Comment: Aspartate Transaminase result may show positive bias due to hemolysis. K result canceled due to hemolysis. Specimen moderately hemolyzed. potassium Cancelled due to moderate hemolysis. Notified yvrose caro rn @1324 01/18/25 reg Ordering Provider: PRESTON JONES Report Released Date/Time: Jan 18, 2025 11:49 AM Reporting Lab: [facility] [address] [facility] [address] Performing Lab: [facility] [address] [place] [address] CREATININE 0.99 mg/dL 0.7-1.3 UREA NITROGEN 21.3 mg/dL 9.0-25.0 GLUCOSE 105 mg/dL H 72-99 SODIUM 132 meq/L L 136-145 POTASSIUM canc meq/L 3.5-5 CHLORIDE 104 meq/L 98-107 CARBON DIOXIDE 20 meq/L L 22-31 CALCIUM 8.4 mg/dL 8.4-10.4 PROTEIN 7.0 g/dL 6-8.6 ALBUMIN 3.1 g/dL L 3.4-5 TOTAL BILIRUBIN 1.1 mg/dL 0.2-1.2 ALKALINE PHOSPHATASE 123 U/L 40-150 AST/SGOT 110 U/L H 5-34 ALT/SGPT 45 U/L H 8-40 EGFR (CKD-EPI 2020) 78.5 >60 Jan 18, 2025 11:50 AM [facility] PT/INR NEW (STL-MA) PLASMA Specimen Type: PLAS MA No comment entered. Ordering Provider: PRESTON JONES Report Released Date/Time: Jan 18, 2025 11:49 AM Reporting Lab: [place] [id number] [facility] [address] Performing Lab: [address] [address] PROTIME 14.2 s H 9.4-12.5 INR VALUE 1.3 {INR} Jan 18, 2025 11:50 AM [facility] BRAIN NATRIURETIC PEPTIDE PLASMA Specimen Type : PLASMA No comment entered. Ordering Provider: PRESTON JONES Report Released Date/Time: Jan 18, 2025 11:49 AM Reporting Lab: [address] [address] Performing Lab: [address] [address] BRAIN NATRIURETIC PEPTIDE 366.8 pg/mL H 0- 100 Jan 18, 2025 11:50 AM [facility] TROPONIN I (STL) PLASMA Specimen Type: PLASM A Comment: Aspartate Transaminase result may show positive bias due to hemolysis. K result canceled due to hemolysis. Specimen moderately hemolyzed. Ordering Provider: PRESTON JONES Report Released Date/Time: Jan 18, 2025 11:49 AM Reporting Lab: [facility] [address] [facility] [address] Performing Lab: [facility] [address] [facility] [address] TROPONIN I (STL) 0.032 ng/mL 0-0.033 Vital Signs: All taken on the encounter date This section contains inpatient and outpatient Vital Signs collected on the date of the Encounter. Date/Time Temperature Pulse Blood Pressure Respiratory Rate SP02 Pain Height Weight Body Mass Index Source Dec 20, 2024 10:23 AM 98.6 F 71 /min 109/45 mm[Hg] 18 /min 95 % 6 72 in 180.3 lb 25 [facility] Social History: Smoking Status (Most current) and Tobacco Use (All prior to encounter date) This section includes the most current, and the historical, smoking and tobacco- related health factors from the [place] facility where the Encounter took place. Current Smoking Status This section includes the most current smoking, or tobacco-related health factor, from the [place] facility where the Encounter took place. Date/Time Current Smoking Status Comment Melissa stoddard Nov 12, 2020 05:09 PM ORYX ADMIT TOBACCO SCREEN NO [facility] Tobacco Use History This section includes a history of the smoking, or tobacco-related health factors, that were collected on or before the date of the Encounter. The data comes from the [place] facility where the Encounter took place. Date/Time Smoking Status/Tobacco Use Comment F acility November 08, 2018 11:16 AM VA-TOBACCO FORMER USER [facility] November 08, 2018 11:16 AM VA-TOBACCO QUIT < 1 YEAR [facility] Jul 30, 2016 03:10 PM QUIT TOBACCO IN TH E LAST 12 MONTHS [facility] November 10, 2011 10:27 PM QUIT TOBACCO >12 M O & <7 YRS AGO [facility] Dec 28, 2005 08:38 AM CURRENT NON-TOBACC O USER-HX OF USE [facility] Dec 28, 2005 08:38 AM TOBACCO TERMINATION STAGE [facility] Jun 23, 2005 12:42 PM CURRENT TOBACCO USER [facility] Jun 23, 2005 12:42 PM SMOKER 1-2 PACKS [facility] Advance Directives: All historical and current Section Date Range: From patient's date of to the date document was created. This section includes ALL of a patient's completed or amended [place] Advance and Rescinded Directives. The entries below indicate that a directive exists for the patient, but an actual copy is not included with this document. The data comes from all [place] facilities. Date Advance Directives Provider Source Nov 17, 2022 ADVANCE DIRECTIVE MOISES ADHIKARI [facility] Jun 12, 2020 STATE-AUTHORIZED POR TABLE ORDERS ANNE CHATTERJEE [facility] October 21, 2018 RESCINDED ADVANCE DIRECTIVE SHERIF BETANCOURT [facility] November 12, 2011 ADVANCE DIRECTIVE DISCUSSION LIA JUAREZ [facility] Radiology Reports: +/- 30 days of the [...] the Encounter. The data comes from all [place] treatment facilities. Date/Time Radiology Report Provider Source Jan 19, 2025 10:59 AM ABDOMINAL PARACENT ESIS WITH IMAGE GUIDANCE: NEISHA LUND [id number] -1945 M Exm Date: JAN 19, 2025@10:59 Req Phys: GHANSHYAM HELLER Loc: 5-C [facility]-/01-19-2025@17:23 Img Loc: [facility]/INTERVENTIONAL Service: [id number] SERVICE [address] [address] (Case [id number] COMPLETE) ABDOMINAL PARACENTESIS WITH IMAGE(ANI Detailed) CPT:04845 Reason for Study: 79 M with ascites and abdominal discomfort Clinical History: Report Status: Verified Date Reported: JAN 19, 2025 Date Verified: JAN 19, 2025 Ground Services Instructor E-Sig:/ES/Ghanshyam Heller MD Report: CASE # [id number] HISTORY: 79 M with ESLD, ascites, abdominal distension and discomfort PROCEDURE: 1. Limited ultrasound examination of the abdomen. 2. Ultrasound-guided paracentesis. OPERATORS: 1. LYN Tate attending ANESTHESIA: Local - 10 mL of 1% Lidocaine CONTRAST: None PROCEDURE DETAILS: The procedure, benefits, risks, and potential complications were explained to the patient in detail, and informed consent was obtained. The patient was placed in a supine position on the examination table. The patient was prepped and draped in the usual sterile fashion. A timeout utilizing a check list was performed prior to the procedure. The patient was identified by name, Social Security number, and date of . A qualified radiology nurse monitored the patient's vital signs throughout the procedure. Limited ultrasound examination of the abdomen demonstrated large volume ascites. A percutaneous entry point was marked on the skin. Local anesthesia was given with lidocaine 1%. A 5 Armenian One-Step coaxial needle system was advanced into the peritoneal cavity using ultrasound guidance. Approximately 8300 mL of clear yellow fluid was drained. An appropriate amount of fluid was sent for analysis. The patient received appropriate albumin replacement. Post-procedure limited ultrasound evaluation of the abdomen showed near resolution of ascites. The needle was then removed, and sterile dressing was applied. The patient tolerated the procedure well and was transferred to the holding area in stable condition. Impression: Successful ultrasound-guided paracentesis with drainage of 8300 mL of clear yellow fluid. IGhanshyam, was present and supervised/performed the entire procedure. Primary Interpreting Staff: Ghanshyam Heller MD, Interventional Radiologist (Ground Services Instructor) /GHANSHYAM ALEXANDER [facility] Jan 18, 2025 02:[address] ABD PEL W/CONT & 3D: NEISHA LUND [id number] -1945 M Exm Date: JAN 18, 2025@14:58 Req Phys: BRET PRINCE Pat Loc: [facility]GENCY DEPT 2ND SHIFT (R Img Loc: [facility]-CT IMAGING [facility] Service: Unknown [facility] [address] [address] [place] [address] (Case [id number] COMPLETE) CT ABDOMEN AND PELVIS W/CONTRAST (CT Detailed) CPT:19509 Contrast Media : Non-ionic Iodinated Reason for Study: Abdominal distention Clinical History: Responsible Attending: Flakita Attending Contact Number: By 6.0 Resident Contact Number: Abdominal distention rule out ascites versus SBO Allergies listed in CPRS chart: SULFA DRUGS, OXYBUTYNIN CHLORIDE Creatinine:CREATININE 0.99 mg/dL 01/18/2025 11:50 /eGFR: STL EGFR (within one year). CREATININE 0.99 mg/dL (01/18/25 11:50) Wt: 185 lb [83.91 kg] (01/18/2025 09:19) History of: Renal failure, chronic or acute renal disease: YES Report Status: Verified Date Reported: JAN 18, 2025 Date Verified: JAN 18, 2025 Ground Services Instructor E-Sig:/ES/Laila Deluca MD Report: EXAMINATION: CT ABDOMEN AND PELVIS W/CONTRAST DATE: 01/18/2025 2:58 PM HISTORY: Abdominal distention. COMPARISON: MRI 2024, CT 10/13/2023 TECHNIQUE: Helical multidetector dual-energy CT axial slices through the abdomen and pelvis with intravenous contrast administration, according to center protocol. From the original axial data, sagittal and coronal reconstructions were performed. FINDINGS: Inferior Thorax: Large bulla in the right middle lobe. There is calcified granuloma in the right lower lobe. There is subsegmental atelectasis in the lungs. Calcified hilar and mediastinal lymph nodes. There are coronary artery calcifications. Vasculature: Atherosclerosis of the abdominal aorta and its branch vessels. Liver: There is hepatic cirrhosis. No discrete mass is identified. Gallbladder: Normal. Bile Ducts: The intrahepatic and extrahepatic bile ducts are normal for the patient's stated age. Spleen: Splenomegaly measuring 16 cm in craniocaudal dimension. Pancreas: normal Kidneys: There is a there are multiple simple cysts in the left kidney. There is no evidence of a solid renal mass. Adrenal Glands: normal Bowel: No bowel dilation. Appendix: Normal. Retroperitoneum and Mesentery: Moderate to large volume ascites. There is mild thickening of the ascending colon favored to represent hepatic colopathy. There is a ventral wall periumbilical hernia containing ascites. Pelvic organs: Evaluation of the pelvis is limited due to metallic artifact from patient's hip prosthetic and hardware. The bladder is not well evaluated. Musculoskeletal/Soft Tissues: There is bilateral gynecomastia. There is generalized body wall edema. Round 3.5 cm fluid-filled saclike area adjacent to the inguinal canal favored to represent a ascites filled femoral hernia, slightly increased in size compared to prior exam (series 3 image 164). Moderate degenerative changes in the spine. Age-indeterminate left fourth through sixth anterolateral lateral rib fractures which appear new from prior chest CT on 07/13/2024. More chronic appearing fracture of the left 12th posterior rib. There is a right hip prosthesis. Left femur plate and screw fixation and intramedullary marianela of the left femur with a chronic fracture of the left superior and inferior iliac ramus. Impression: 1. Hepatic cirrhosis with sequelae of portal hypertension including splenomegaly and moderate to large volume ascites. Anasarca. 2. Mild thickening of the ascending colon favored to represent hepatic colopathy. 3. Age-indeterminate likely subacute left fourth through sixth anterolateral rib fractures. Recommend correlation for point tenderness. Findings are new from prior chest CT on 07/13/2024. More chronic appearing fracture of the left 12th posterior rib. Dictated by Britany Mathias M.D. (vice president for instruction) ILaila, have reviewed the images and report and concur with these findings. Primary Interpreting Staff: Laila Deluca MD, Radiologist (Ground Services Instructor) Primary Interpreting Resident: BRITANY MATHIAS, Resident /LAILA GARCIA [facility] Jan 18, 2025 12:01 PM CHEST PORTABLE: NEISHA LUND [id number] -1945 M Ex Date: JAN 18, 2025@12:01 Req Phys: PRESTON JONES Pat Loc: [facility]PT 2ND SHIFT (R Img Loc: [facility]MAIN RADIOLOGY SUITE Service: Unknown [facility], [facility] [address] [place] [address] (Case [id number] COMPLETE) CHEST PORTABLE (RAD Detailed) CPT:65260 Proc Modifiers : Portable Reason for Study: shortness of breath Clinical History: Report Status: Verified Date Reported: JAN 18, 2025 Date Verified: JAN 18, 2025 Ground Services Instructor E-Sig:/ES/Laila Deluca MD Report: CHEST PORTABLE CASE #: [id number] DATE:01/18/2025 12:31 PM CLINICAL HISTORY:shortness of breath COMPARISON: 09/27/2023 TECHNIQUE: CHEST PORTABLE Impression: FINDINGS/IMPRESSION: Lordotic portable chest radiograph reveals some right midlung scarring which is slightly more conspicuous than on the preceding study. No focal pneumonia or pleural effusion. Heart size within normal limits. No CHF. No fracture. No pneumothorax. Primary Interpreting Staff: Laila Deluca MD, Radiologist (Ground Services Instructor) /LAILA LANCE [facility] Pathology Reports: +/- 30 days of [...] the Encounter. The data comes from all [place] treatment facilities. Date/Time Pathology Report Provider Source [...] Performing Laboratory: Surgical Pathology Report Performed By: [facility] [address] [facility]# [id number] [address] [place] [id number] $FTR - - - - - - [...] - - NEISHA LUND STANDARD FORM 515 ID:[id number] SEX:M :1945 AGE: 79 LOC:GILABA2 PCP: Truman Amador MD /zachary/ LUAN ARANGO MD, PhD STAFF PATHOLOGIST Signed: 12/05/2024 16:00 LUAN ARANGO [facility] Encounter Notes: All associated encounter notes This section contains the clinical notes associated to the Encounter. Date/Time Encounter Note(s) Provider Source Dec 20, 2024 09:44 AM ENDOCRINOLOGY OUTPATIENT NOTE: LOCAL TITLE: ENDOCRINOLOGY OUTPATIENT FOLLOW UP [facility] STANDARD TITLE: ENDOCRINOLOGY OUTPATIENT NOTE DATE OF NOTE: DEC 20, 2024@09:44 ENTRY DATE: DEC 20, 2024@09:44:42 AUTHOR: AIDAN AGOSTO EXP COSIGNER: URGENCY: STATUS: COMPLETED ENDOCRINOLOGY FOLLOW-UP NOTE = Date of visit: DEC 20, 2024 SUBJECTIVE Source(s) of history: Patient and/or other Reliability of source(s): Reliable CHIEF COMPLAINT: NEISHA LUND is a 79-year-old WHITE MALE with a previous medical history of osteoporosis, renal impairment, mild cognitive impairment, vitamin D deficiency, and below-knee amputation that presents today for osteoporosis management INITIAL HISTORY OF PRESENT ILLNESS: PREVIOUS PLAN: -Currently tolerating teriparatide at this time. He [...] work having been done in the past. [place] states he follows with his dentist at least twice yearly -Repeat calcium and vitamin D today -Advised to call should he experience any falls, fractures, or unexplained jaw pain 2. History of hypercalcemia -[place]'s calcium was 11.0 on 02/02/2023 -Repeat calcium on 03/10/2023 showed 10.1 -On the appointment with Makenna Troncoso NP he was instructed to hold calcium due to hypercalcemia -However, with repeat labs in 2023 calcium has been between 8.6 and 9.1 repeatedly -Should calcium levels come back in similar range, okay to restart calcium/vitamin D 600/401 tab daily INTERIM MEDICAL HISTORY: Celia denies falls and fractures since last meeting. He states that he did go to his DEXA scan, however he never got the call from this provider to discuss next steps. Veterans teriparatide has been renewed, and he has now been on it for 2 years and 3 months. Advised that the max amount of time he should be on this is 2 years and advised that he stop this at this time. When discussing neck step, advised that the neck step should include some kind of bisphosphonate therapy. He states that he would like to pursue Reclast therapy if available/eligible HISTORY: Medical History: 1) Microscopic Hematuria 2) Alcoholic cirrhosis ([facility] CT [id number]) 3) Hernia of abdominal wall 4) Insomnia 5) Amputated below knee 6) Walking disability 7) Depression 8) Obstructive sleep apnea syndrome 9) Gastroesophageal reflux disease 10) Solitary nodule of lung 11) Legal problem 12) Moderate protein-calorie malnutrition (weight for age 60-74% of standard) 13) Anxiety ([facility] [id number]) 14) Benign Prostatic Hypertrophy With Outflow Obstruction ([facility] [id number]) 15) History of Polyp of Colon ([facility] [id number]) 16) Internal hemorrhoids 17) Vitamin D Deficiency ([facility] [id number]) 18) Allergic Rhinitis ([facility] [id number]) 19) Closed fracture of left acetabulum 20) Narcolepsy 21) AF - Atrial Fibrillation ([facility] [id number]) 22) PE - Pulmonary Embolism ([facility] [id number]) 23) H/O: surgery 24) Low Back Pain ([facility] [id number]) 25) Osteoporosis ([facility] [id number]) 26) Renal Impairment ([facility] [id number]) 27) Mild cognitive impairment 28) COPD - Chronic Obstructive Pulmonary Disease ([facility] [id number]) Surgical History: Family history: - Parents: - Grandparents: - Siblings: Social History: - Home and environment: - Education: - Employemnt - Diet: - Activites and Exercise - Drugs/ alcohol: - Suicide/ depression: ROS: Negative except as mentioned in HPI. Active medications: Active Outpatient Medications (including Supplies): AMILORIDE HCL 5MG TAB TAKE TWO TABLETS [...] WITH FOOD DIRECTED. Indication: FOR PANCREATIC INSUFFICIENCY DEPEND UNDERWEAR,MAXIMUM,MEN LARGE USE 1 DIAPER TO ACTIVE AFFECTED AREA(S) 5 TIMES A DAY NEEDED Indication: FOR INCONTINENCE FLUTICASONE PROP 50MCG 120D NASAL INHL INSTILL 1 SPRAY IN ACTIVE NOSTRIL(S) ONCE A DAY (MUST BE USED DIRECTED FOR MINIMUM OF 21 DAYS TO PROVIDE ADEQUATE BENEFITS) Indication: FOR CHRONIC RHINOSINUSITIS FUROSEMIDE 80MG TAB TAKE ONE TABLET BY MOUTH EVERY MORNING ACTIVE Indication: FOR FLUID RETENTION (EDEMA) GABAPENTIN 100MG CAP TAKE ONE CAPSULE BY MOUTH TWICE DAILY ACTIVE NEEDED Indication: FOR PAIN IPRATROPIUM BR 0.03% NASAL SPRAY USE 2 SPRAYS INTO HOLD NOSTRIL(S) THREE TIMES A DAY Indication: FOR ALLERGIC RHINITIS LOPERAMIDE HCL 2MG CAP TAKE ONE CAPSULE BY MOUTH FOUR ACTIVE TIMES A DAY NEEDED Indication: DIARRHEA MAGNESIUM CITRATE LIQUID TAKE 1 BOTTLE BY MOUTH ONE-TIME ACTIVE PREP BEFORE COLONOSCOPY Indication: FOR BOWEL EMPTYING NUTRITION SUPL ENSURE PLUS/CAIT LIQUID TAKE 1 [...] 30 MINUTES BEFORE MEAL(S) Indication: LUQ PAIN RIFAXIMIN 550MG TAB TAKE ONE TABLET BY MOUTH TWICE A DAY ACTIVE Indication: FOR HEPATIC ENCEPHALOPATHY TERIPARATIDE 250MCG/ML(560MCG)2.24ML PEN INJECT ACTIVE 20MCG/0.08ML UNDER THE SKIN ONCE A DAY (USE WITH NEEDLE,PEN 31G,5/16IN - SEPARATE RX) Indication: FOR OSTEOPOROSIS Non-VA AMITRIPTYLINE HCL 10MG TAB 10MG BY MOUTH ONCE A DAY ACTIVE Non-VA ASPIRIN 81MG EC TAB 81MG BY [...] BY MOUTH ONCE A DAY ACTIVE NEEDED 24 Total Medications I have reviewed current medications w/ [place] at this visit. Efficacy and side effects of the medications were reviewed. denies questions, concerns, or problems with medications unless addressed in notes above. Allergies/ Intolerances: SULFA DRUGS, OXYBUTYNIN CHLORIDE OBJECTIVE --------- Records reviewed from consulting providers Vitals: VSD - Detailed Vitals Date Vital Measurement Qualifiers 12/11/2024 13:39 Temp F (C) 97.7 (36.5) Pulse 75 Respir 18 BP 111/52 Wt lbs (kg)[BMI] 176 (79.83)[24] Pain 0 POx (L/Min)(%) 93 11/24/2024 14:23 Ht in (cm) 72 (182.88) PHYSICAL EXAM: General: no distress, wel-nourished, oriented [...] tenderness Extremities:No amputations or deformities Musculoskeletal: normal gait, no obvious defects with movementof extremities Neurologic: CN 2-12 normal, sensations to touch and proprioception normal Psych: oriented x3, memory intact, judgement, insight, and mood within normal limits Labs: CBC: WBC 6.2 10*3/uL 11/03/2024 12:45 RBC 4.05 [...] Specimen Test Name Result Units Ref Range 07/13/2024 10:33 PLASMA CREATININE 0.83 mg/dL 0.7 - 1.3 07/13/2024 10:33 PLASMA UREA NITROGEN 25.3 H mg/dL 9.0 - 25.0 07/13/2024 10:33 PLASMA GLUCOSE 91 mg/dL 72 - 99 07/13/2024 10:33 PLASMA SODIUM 137 mEq/L 136 - 145 07/13/2024 10:33 PLASMA POTASSIUM 5.1 H mEq/L 3.5 - 5 07/13/2024 10:33 PLASMA CHLORIDE 105 mEq/L 98 - 107 07/13/2024 10:33 PLASMA CARBON DIOXIDE 26 mEq/L 22 - 31 07/13/2024 10:33 PLASMA CALCIUM 8.8 mg/dL 8.4 - 10.4 Comment: No hemolysis noted. 02/22/2024 12:07 PLASMA PROTEIN 7.0 g/dL 6 - 8.6 02/22/2024 12:07 PLASMA ALBUMIN 3.5 g/dL 3.4 - 5 02/22/2024 12:07 PLASMA TOTAL BILIRUBIN 0.7 mg/dL 0.2 - 1.2 02/22/2024 12:07 PLASMA ALKALINE PHOSPHAT 130 U/L 40 - 150 02/22/2024 12:07 PLASMA AST/SGOT 33 U/L 5 - 34 02/22/2024 12:07 PLASMA ALT/SGPT 25 U/L 8 - 40 Comment: No hemolysis noted. 07/13/2024 10:33 PLASMA EGFR (CKD-EPI 202 90.1 Ref: >=60 Comment: No hemolysis noted. Lipid: TRIGLYCERIDE 65 mg/dL 08/19/2023 11:39 CHOLESTEROL 140 mg/dL 08/19/2023 11:39 HDL(New) 44 mg/dL 08/19/2023 11:39 CALCULATED LDL 83 mg/dL 08/19/2023 11:39 TSH: No TSH (1YR) EO data found A1C:SLT - Lab Tests Selected Collection DT Specimen Test Name Result Units Ref Range 08/19/2023 11:39 BLOOD HGA1C 5.4 % 4.0 - 6.0 08/29/2021 12:52 BLOOD HGA1C 5.0 % 4.0 - 6.0 10/17/2019 15:19 BLOOD HGA1C 5.1 % 4.0 - 6.0 Glucose tolerance test: No results shown Imaging results: DEXA scan 10/2024 Report: Dual -Energy X-ray Absorptiometry (DXA) Comparison: [...] Osteoporosis = at or below -2.5 SD Spine 1/3 radius 2024 1.9(1.297) -2.8 0.668 2023 0.8(1.180) -3.1 0.652 2021 0.3(1.124) -3.9 0.612 ASSESSMENT & PLAN 1. Osteoporosis - with history of bilateral hip fracture - still taking teriparatide. Advise he stop taking his he has now been on it for 2 years and 3 months (started in 09/2022) -DEXA scan shows improvement in T-scores after teriparatide therapy -To preserve progress made, celia has opted to pursue Reclast infusion as current T-scores still indicate osteoporosis levels -Dental consult placed for panoramic view to see if dental work needs to be done prior to starting -Return to clinic in 6 months -Continue calcium and vitamin D - no labs to be done today 2. History of hypercalcemia -[place]'s calcium was 11.0 on 02/02/2023 -Repeat calcium [...] Time spent with patient/caregiver: I personally spent 30 minutes today. this time includes preparing to [...] meeting Patient case discussed with Endocrine staff /es/ PRIYANK Hayward, MSN, RN Nurse Practitioner Signed: 12/20/2024 10:46 AIDAN AGOSTO [facility]
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
--- OUTSIDE RECORDS SUMMARY | 2025-01-11 04:16 | XMS_ITS ---
Author Name [facility] Address [address] [place] [address] Care Team Providers Care Community Outreach Manager Name Role Phone TRUMAN GONZALEZ Primary Care [...] section includes the information on record at NH for the Encounter. Date/Time Encounter Type Encounter Description Reason Pro vider Source Jan 11, 2025 09:16 AM [facility] OL DIG ASSMT&MGMT 5-10 GASTROENTEROLOGY ICD-10-CM K70.30 Alcoholic cirrhosis of liver without ascites [facility] Encounter Template Text not used by NH Assessments - Encounter Diagnoses This section includes the primary and secondary diagnoses documented for the Encounter. Date/Time Primary/Secondary Diagnosis Diagnosis Name Provider Source Jan 11, 2025 09:22 AM PRIMARY Alcoholic cirrhosis of liver without ascites KASSI FRANK [facility] Plan of Treatment: Future Appointments (+ 6 months) and Future Tests (+/- 45 days) The Plan of Treatment section includes future care activities for the patient from all [facility] specialty hospital. This section includes future appointments and future orders which are active, pending or scheduled. Future Appointments This section includes appointments that were scheduled to occur 6 months from the date of the Encounter, up to a maximum of 20 appointments. The data comes from all [facility]. Appointment Date/Time Appointment Type Appointme nt Facility Name Jan 18, 2025 09:30 AM AMBULATORY - SURGERY [facility] Jan 18, 2025 10:51 AM AMBULATORY - MEDICINE [facility] Jan 22, 2025 03:30 PM AMBULATORY - MEDICINE [facility] Jan 26, 2025 11:00 AM AMBULATORY - NONE . [facility] Jan 30, 2025 03:58 AM AMBULATORY - MEDICINE [facility] Feb 01, 2025 03:30 PM AMBULATORY - MEDICINE [facility] Mar 01, 2025 01:00 PM AMBULATORY - REHAB [facility]ICIN [facility] Mar 14, 2025 10:15 AM AMBULATORY - MEDICINE [facility] May 03, 2025 10:45 AM AMBULATORY - SURGERY [facility] May 03, 2025 01:00 PM AMBULATORY - SURGERY [facility] Active, Pending, and Scheduled Orders This section includes a listing of several types of active, pending, and scheduled orders, including clinic medications orders, diagnostic test orders, procedure orders and consult orders; where the start date of the order is 45 days before the date of the Encounter or 45 days after the date of theEncounter. The data comes from all [facility]. Test Date/Time Test Type Test Details Facility Name Jan 19, 2025 11:34 AM Consult Order OT OUTPATI ENT CONSULT [facility] Cons Helpdesk Administrator's Choice [facility] Lab Results: +/- 30 days of the encounter This section includes the Chemistry and Hematology Lab Results on record with NH for the patient. Radiology Reports and Pathology Reports are provided separately, in subsequent sections. Lab Results This section contains the Chemistry/Hematology Results that were resulted 30 days before or 30 daysafter the date of the Encounter. Date/Time Source Result Type Result - Unit Interpretation Reference Range Specimen Type Comment Jan 31, 2025 02:14 PM [facility] MAGNESIUM PLASMA Specimen Type: PLASMA Comment: No hemolysis noted. Ordering Provider: JOHNATHAN STEEN Report Released Date/Time: Jan 30, 2025 07:25 AM Reporting Lab: [facility] [address] [facility] [address] Performing Lab: [address] [address] MAGNESIUM 2.0 mg/dL 1.6-2.6 Jan 31, 2025 02:14 PM [facility] COMPREHENSIVE METABOLIC PANEL PLASMA Specimen Type: PLASMA Comment: No hemolysis noted. Ordering Provider: JOHNATHAN STEEN Report Released Date/Time: Jan 30, 2025 07:25 AM Reporting Lab: [address] [address] Performing Lab: [address] [address] CREATININE 1.07 mg/dL 0.7-1.3 UREA NITROGEN 24.7 mg/dL 9.0-25.0 GLUCOSE 107 mg/dL H 72-99 SODIUM 132 meq/L L 136-145 POTASSIUM 4.0 meq/L 3.5-5 CHLORIDE 103 meq/L 98-107 CARBON DIOXIDE 21 meq/L L 22-31 CALCIUM 8.5 mg/dL 8.4-10.4 PROTEIN 6.6 g/dL 6-8.6 ALBUMIN 3.2 g/dL L 3.4-5 TOTAL BILIRUBIN 0.6 mg/dL 0.2-1.2 ALKALINE PHOSPHATASE 125 U/L 40-150 AST/SGOT 48 U/L H 5-34 ALT/SGPT 32 U/L 8-40 EGFR (CKD-EPI 2020) 71.5 >60 Jan 31, 2025 02:14 PM [facility] CBC BLOOD Specimen Type: BLOOD No comment entered. Ordering Provider: JOHNATHAN STEEN Report Released Date/Time: Jan 30, 2025 07:25 AM Reporting Lab: [address] [address] Performing Lab: [address] [address] WBC 7.5 10*3/uL 3.6-11.2 RBC 4.32 10*6/uL 4.10-5.70 HGB 12.0 g/dL L 13.1-16.8 HCT 37.3 L 38.2-48.4 MCV 86.3 fL 80.0-100.0 MCH 27.8 pg 27.0-34.0 MCHC 32.2 g/dL L 33.0-36.0 PLT 145 10*3/uL L 150-400 MPV 11.3 fL H 7.5-11.2 RDW 16.4 H 11.8-15.1 LYMPHOCYTES, AUTO % 8 MONOCYTES, AUTO % 14 NEUTROPHILS, AUTO % 74 EOSINOPHILS, AUTO % 3 BASOPHILS, AUTO % 0 LYMPHOCYTES, ABSOLUTE 0.62 10*3/uL L 0.77- 4.50 MONOCYTES, ABSOLUTE 1.08 10*3/uL H 0.19-0. 80 NEUTROPHILS, ABSOLUTE 5.53 10*3/uL 2.10- 8.00 EOSINOPHILS, ABSOLUTE 0.21 10*3/uL 0.00- 0.60 BASOPHILS, ABSOLUTE 0.02 10*3/uL 0.00-0. 20 Jan 31, 2025 02:14 PM [facility] PHOSPHOROUS PLASMA Specimen Type: PLASM A Comment: No hemolysis noted. Ordering Provider: JOHNATHAN STEEN Report Released Date/Time: Jan 30, 2025 07:25 AM Reporting Lab: [address] [address] Performing Lab: [address] [address] PHOSPHOROUS 2.6 mg/dL 2.3-4.7 Jan 30, 2025 04:35 PM [facility] CELL COUNT BODY FLUIDS (STL) PERITONEAL FL. Specimen T ype: PERITONEAL FL. No comment entered. Ordering Provider: BALTA BARR Report Released Date/Time: Jan 30, 2025 03:49 PM Reporting Lab: [address] [address] Performing Lab: [address] [address] MESOTHELIAL 12 GROSS APPEARANCE YELLOW/HAZY FL SEGS 6 FL LYMPHS 48 FL MACROPHAGES 34 FL NUCLEATED CELLS 97 /uL 0-500 RBC FL 561 /uL Jan 30, 2025 04:05 PM [facility] MRSA SURVL NARES DNA NARES Specimen Type: [...] epidemiological information for final interpretation. Ordering Provider: JOHNATHAN STEEN Report Released Date/Time: Jan 30, 2025 07:25 AM Reporting Lab: [address] [address] Performing Lab: [address] [address] MRSA SURVL NARES DNA Negative Negative Jan 30, 2025 02:22 PM [facility] MAGNESIUM PLASMA Specimen Type: PLASM A Comment: No hemolysis noted. Ordering Provider: JOHNATHAN STEEN Report Released Date/Time: Jan 30, 2025 07:25 AM Reporting Lab: [address] [address] Performing Lab: [address] [address] MAGNESIUM 2.0 mg/dL 1.6-2.6 Jan 30, 2025 02:22 PM [facility] PHOSPHOROUS PLASMA Specimen Type: PLASM A Comment: No hemolysis noted. Ordering Provider: JOHNATHAN STEEN Report Released Date/Time: Jan 30, 2025 07:25 AM Reporting Lab: [address] [address] Performing Lab: [facility] [address] [place] [phone] PHOSPHOROUS 2.8 mg/dL 2.3-4.7 Jan 30, 2025 02:22 PM [facility] CBC BLOOD Specimen Type: BLOOD No comment entered. Ordering Provider: JOHNATHAN STEEN Report Released Date/Time: Jan 30, 2025 07:25 AM Reporting Lab: [address] [address] Performing Lab: [address] [address] WBC 5.3 10*3/uL 3.6-11.2 RBC 3.77 10*6/uL L 4.10-5.70 HGB 10.4 g/dL L 13.1-16.8 HCT 32.2 L 38.2-48.4 MCV 85.4 fL 80.0-100.0 MCH 27.6 pg 27.0-34.0 MCHC 32.3 g/dL L 33.0-36.0 PLT 105 10*3/uL L 150-400 MPV 11.4 fL H 7.5-11.2 RDW 16.2 H 11.8-15.1 IMMATURE PLT FRACTION 4.7 1.0-7.0 NEUTROPHILS 75.7 MONOCYTES 7.5 EOSINOPHILS 6.6 BASOPHILS 0.9 POIKILOCYTOSIS 1+ MACROCYTOSIS 1+ PAPPENHEIMER BODIES 0 LYMPHOCYTES 8.4 ATYPICAL LYMPHOCYTES 0.9 PLT EST-CV ADEQUATE ADEQUATE BASO#-MDIFF 0.05 10*3/uL 0.01-0.20 EO#-MDIFF 0.35 10*3/uL 0.00-0.60 MONO#-MDIFF 0.40 10*3/uL 0.19-0.80 LYMPH#-MDIFF 0.49 10*3/uL L 0.77-4.50 NEUT#-MDIFF 4.01 10*3/uL 2.10-8.00 Jan 30, 2025 02:22 PM [facility] COMPREHENSIVE METABOLIC PANEL PLASMA Specimen Type: PLASMA Comment: No hemolysis noted. Ordering Provider: JOHNATHAN STEEN Report Released Date/Time: Jan 30, 2025 07:25 AM Reporting Lab: [address] [address] Performing Lab: [address] [address] CREATININE 1.17 mg/dL 0.7-1.3 UREA NITROGEN 25.9 mg/dL H 9.0-25.0 GLUCOSE 122 mg/dL H 72-99 SODIUM 130 meq/L L 136-145 POTASSIUM 3.1 meq/L L 3.5-5 CHLORIDE 104 meq/L 98-107 CARBON DIOXIDE 19 meq/L L 22-31 CALCIUM 8.1 mg/dL L 8.4-10.4 PROTEIN 5.9 g/dL L 6-8.6 ALBUMIN 3.0 g/dL L 3.4-5 TOTAL BILIRUBIN 0.8 mg/dL 0.2-1.2 ALKALINE PHOSPHATASE 105 U/L 40-150 AST/SGOT 49 U/L H 5-34 ALT/SGPT 35 U/L 8-40 EGFR (CKD-EPI 2020) 64.2 >60 Jan 30, 2025 02:22 PM [facility] PT/INR NEW ([facility]) PLASMA Specimen Type: PLAS MA No comment entered. Ordering Provider: JOHNATHAN STEEN Report Released Date/Time: Jan 30, 2025 07:26 AM Reporting Lab: [address] [address] Performing Lab: [address] [address] PROTIME 14.6 s H 9.4-12.5 INR VALUE 1.3 {INR} Jan 30, 2025 02:22 PM [facility] LIPASE PLASMA Specimen Type: PLASM A Comment: No hemolysis noted. Ordering Provider: JOHNATHAN STEEN Report Released Date/Time: Jan 30, 2025 07:26 AM Reporting Lab: [address] [address] Performing Lab: [address] [address] LIPASE 60 U/L 8-78 Jan 30, 2025 04:00 AM [facility] COMPREHENSIVE METABOLIC PANEL PLASMA Specimen Type: PLASMA Comment: No hemolysis noted. Ordering Provider: GI ROBERTS Report Released Date/Time: Jan 30, 2025 04:06 AM Reporting Lab: [address] [address] Performing Lab: [address] [address] CREATININE 1.25 mg/dL 0.7-1.3 UREA NITROGEN 26.9 mg/dL H 9.0-25.0 GLUCOSE 106 mg/dL H 72-99 SODIUM 135 meq/L L 136-145 POTASSIUM 3.4 meq/L L 3.5-5 CHLORIDE 105 meq/L 98-107 CARBON DIOXIDE 19 meq/L L 22-31 CALCIUM 8.6 mg/dL 8.4-10.4 PROTEIN 6.4 g/dL 6-8.6 ALBUMIN 3.2 g/dL L 3.4-5 TOTAL BILIRUBIN 0.8 mg/dL 0.2-1.2 ALKALINE PHOSPHATASE 118 U/L 40-150 AST/SGOT 51 U/L H 5-34 ALT/SGPT 36 U/L 8-40 EGFR (CKD-EPI 2020) 59.3 >60 Jan 30, 2025 04:00 AM [facility] CBC BLOOD Specimen Type: BLOOD No comment entered. Ordering Provider: GI ROBERTS Report Released Date/Time: Jan 30, 2025 04:06 AM Reporting Lab: [address] [address] Performing Lab: [address] [address] WBC 6.4 10*3/uL 3.6-11.2 RBC 3.99 10*6/uL L 4.10-5.70 HGB 11.1 g/dL L 13.1-16.8 HCT 33.8 L 38.2-48.4 MCV 84.7 fL 80.0-100.0 MCH 27.8 pg 27.0-34.0 MCHC 32.8 g/dL L 33.0-36.0 PLT 126 10*3/uL L 150-400 MPV 10.5 fL 7.5-11.2 RDW 16.2 H 11.8-15.1 LYMPHOCYTES, AUTO % 11 MONOCYTES, AUTO % 15 NEUTROPHILS, AUTO % 69 EOSINOPHILS, AUTO % 4 BASOPHILS, AUTO % 1 LYMPHOCYTES, ABSOLUTE 0.69 10*3/uL L 0.77- 4.50 MONOCYTES, ABSOLUTE 0.97 10*3/uL H 0.19-0. 80 NEUTROPHILS, ABSOLUTE 4.39 10*3/uL 2.10- 8.00 EOSINOPHILS, ABSOLUTE 0.24 10*3/uL 0.00- 0.60 BASOPHILS, ABSOLUTE 0.04 10*3/uL 0.00-0. 20 IMMATURE PLT FRACTION 3.4 1.0-7.0 Jan 19, 2025 08:15 PM [facility] COMPREHENSIVE METABOLIC PANEL PLASMA Specimen Type: PLASMA Comment: No hemolysis noted. Ordering Provider: BALTA BARR Report Released Date/Time: Jan 18, 2025 07:27 PM Reporting Lab: [address] [address] Performing Lab: [address] [address] CREATININE 1.08 mg/dL 0.7-1.3 UREA NITROGEN 22.3 [...] 70.7 >60 Jan 19, 2025 08:15 PM [facility] CBC BLOOD Specimen Type: BLOOD No comment entered. Ordering Provider: BALTA BARR Report Released Date/Time: Jan 18, 2025 07:27 PM Reporting Lab: [address] [address] Performing Lab: [place] [phone] WBC 5.8 10*3/uL 3.6-11.2 RBC 3.87 10*6/uL [...] NRBC% 0 Jan 19, 2025 11:12 AM [facility] CELL COUNT BODY FLUIDS (STL) PERITONEAL FL. Specimen T ype: PERITONEAL FL. No comment entered. Ordering Provider: ELIJAH LOZANO Report Released Date/Time: Jan 17, 2025 02:19 PM Reporting Lab: [facility] [address] [facility] [address] Performing Lab: [facility] [address] [facility] [address] MESOTHELIAL 2 GROSS APPEARANCE yellow/hazy FL SEGS 28 FL LYMPHS 34 FL MACROPHAGES 15 FL MONOCYTES 21 FL NUCLEATED CELLS 195 /uL 0-500 RBC FL 329 /uL Jan 18, 2025 08:30 PM [facility] MRSA SURVL NARES DNA NARES Specimen Type: [...] Jan 18, 2025 07:27 PM Reporting Lab: [facility] [address] [place] [phone] Performing Lab: [address] [address] MRSA SURVL NARES DNA Negative Negative Jan 18, 2025 08:11 PM [facility] COMPREHENSIVE METABOLIC PANEL PLASMA Specimen Type: PLASMA Comment: No hemolysis noted. Ordering Provider: BALTA BARR Report Released Date/Time: Jan 18, 2025 07:27 PM Reporting Lab: [address] [address] Performing Lab: [address] [address] CREATININE 0.98 mg/dL 0.7-1.3 UREA NITROGEN 19.8 [...] 79.4 >60 Jan 18, 2025 08:11 PM [facility] CBC BLOOD Specimen Type: BLOOD No comment entered. Ordering Provider: BALTA BARR Report Released Date/Time: Jan 18, 2025 07:27 PM Reporting Lab: [facility] [address] [facility] [address] Performing Lab: [place] [address] [facility] [address] WBC 5.1 10*3/uL 3.6-11.2 RBC 4.14 10*6/uL [...] 3.2 1.0-7.0 Jan 18, 2025 02:25 PM [facility] AMMONIA (STL-MA) PLASMA Specimen Type: PLASM A No comment entered. Ordering Provider: BRET PRINCE Report Released Date/Time: Jan 18, 2025 02:17 PM Reporting Lab: [place] [address] [facility] [address] Performing Lab: [address] [address] AMMONIA (STL-MA) 35 umol/L 13.5-35 Jan 18, 2025 11:50 AM [facility] LIPASE PLASMA Specimen Type: PLASM A Comment: Aspartate Transaminase result may show positive bias due to hemolysis. K result canceled due to hemolysis. Specimen moderately hemolyzed. potassium Cancelled due to moderate hemolysis. Notified yvrose caro rn @1324 01/18/25 reg Ordering Provider: PRESTON JONES Report Released Date/Time: Jan 18, 2025 11:49 AM Reporting Lab: [facility] [address] [facility] [address] Performing Lab: [facility] [address] [facility] [address] LIPASE 31 U/L 8-Jan 18, 2025 11:50 AM [facility] CBC BLOOD Specimen Type: BLOO D No comment entered. Ordering Provider: PRESTON JONES Report Released Date/Time: Jan 18, 2025 11:49 AM Reporting Lab: [facility] [address] [facility] [address] Performing Lab: [facility] [address] [facility] [address] WBC 6.8 10*3/uL 3.6-11.2 RBC 4.06 10*6/uL [...] 10*3/uL 2.10-8.00 Jan 18, 2025 11:50 AM [facility] COMPREHENSIVE METABOLIC PANEL PLASMA Specimen Type: PLASMA Comment: Aspartate Transaminase result may show positive bias due to hemolysis. K result canceled due to hemolysis. Specimen moderately hemolyzed. potassium Cancelled due to moderate hemolysis. Notified yvrose caro rn @6625 01/18/25 reg Ordering Provider: PRESTON JONES Report Released Date/Time: Jan 18, 2025 11:49 AM Reporting Lab: [facility] [address] [facility] [address] Performing Lab: [address] [address] CREATININE 0.99 mg/dL 0.7-1.3 UREA NITROGEN 21.3 [...] 78.5 >60 Jan 18, 2025 11:50 AM [facility] PT/INR NEW ([facility]L-MA) PLASMA Specimen Type: PLAS MA No comment entered. Ordering Provider: PRESTON JONES Report Released Date/Time: Jan 18, 2025 11:49 AM Reporting Lab: [facility] [address] [facility] [address] Performing Lab: [address] [address] PROTIME 14.2 s H 9.4-12.5 INR VALUE 1.3 {INR} Jan 18, 2025 11:50 AM [facility] BRAIN NATRIURETIC PEPTIDE PLASMA Specimen Type : PLASMA No comment entered. Ordering Provider: PRESTON JONES Report Released Date/Time: Jan 18, 2025 11:49 AM Reporting Lab: [facility] [address] [facility] [address] Performing Lab: [facility] [address] [facility] [address] BRAIN NATRIURETIC PEPTIDE 366.8 pg/mL H 0- 100 Jan 18, 2025 11:50 AM [facility] TROPONIN I (STL) PLASMA Specimen Type: PLASM A Comment: Aspartate Transaminase result may show positive bias due to hemolysis. K result canceled due to hemolysis. Specimen moderately hemolyzed. Ordering Provider: PRESTON JONES Report Released Date/Time: Jan 18, 2025 11:49 AM Reporting Lab: [facility] [address] [facility] [address] Performing Lab: [facility] [address] [facility] [address] TROPONIN I (STL) 0.032 ng/mL 0-0.033 Social History: Smoking Status (Most current) and Tobacco Use (All prior to encounter date) This section includes the most current, and the historical, smoking and tobacco- related health factors from the NH facility where the Encounter took place. Current Smoking Status This section includes the most current smoking, or tobacco-related health factor, from the NH facility where the Encounter took place. Date/Time Current Smoking Status Comment Melissa stoddard Nov 12, 2020 05:09 PM ORYX ADMIT TOBACCO SCREEN NO [facility] Tobacco Use History This section includes a history of the smoking, or tobacco-related health factors, that were collected on or before the date of the Encounter. The data comes from the NH facility where the Encounter took place. Date/Time Smoking Status/Tobacco Use Comment F acility November 08, 2018 11:16 AM VA-TOBACCO FORMER USER [facility] November 08, 2018 11:16 AM VA-TOBACCO QUIT < 1 YEAR [facility] Jul 30, 2016 03:10 PM QUIT TOBACCO IN E LAST 12 MONTHS [facility] November 10, 2011 10:27 PM QUIT TOBACCO >12 M O & <7 YRS AGO [facility] Dec 28, 2005 08:38 AM CURRENT NON-TOBACC O USER-HX OF USE [facility] Dec 28, 2005 08:38 AM TOBACCO TERMINATION STAGE [facility] Jun 23, 2005 12:42 PM CURRENT TOBACCO USER [facility] Jun 23, 2005 12:42 PM SMOKER 1-2 [facility] Advance Directives: All historical and current Section Date Range: From patient's date of to the date document was created. This section includes ALL of a patient's completed or amended VA Advance and Rescinded Directives. The entries below indicate that a directive exists for the patient, but an actual copy is not included with this document. The data comes from all NH facilities. Date Advance Directives Provider Source Nov 17, 2022 ADVANCE DIRECTIVE MOISES ADHIKARI [facility] Jun 12, 2020 STATE-AUTHORIZED POR TABLE ORDERS ANNE CHATTERJEE [facility] October 21, 2018 RESCINDED ADVANCE DIRECTIVE SHERIF BETANCOURT [facility] November 12, 2011 ADVANCE DIRECTIVE DISCUSSION LIA JUAREZ [facility] Radiology Reports: +/- 30 days of the [...] the Encounter. The data comes from all NH treatment facilities. Date/Time Radiology Report Provider Source Jan 19, 2025 10:59 AM ABDOMINAL PARACENT ESIS WITH IMAGE GUIDANCE: NEISHA FISH [id number] -1945 M Exm Date: JAN 19, 2025@10:59 Req Phys: GHANSHYAM HELLER Loc: 5-C PCU-[facility]/01-19-2025@17:23 Img Loc: [place]-ANGIO/INTERVENTIONAL Service: [id number] SERVICE [facility] [address] [place] [address] (Case [id number] COMPLETE) ABDOMINAL PARACENTESIS WITH IMAGE(ANI Detailed) CPT:70740 Reason for Study: 79 M with ascites and abdominal discomfort Clinical History: Report Status: Verified Date Reported: JAN 19, 2025 Date Verified: JAN 19, 2025 Flour Worker E-Sig:/ES/Ghanshyam Heller MD Report: CASE # [id number] HISTORY: 79 M with ESLD, ascites, abdominal [...] was given with lidocaine 1%. A 5 [place] One-Step coaxial needle system was advanced into [...] Interpreting Staff: Ghanshyam Heller MD, Interventional Radiologist (Flour Worker) /GHANSHYAM [facility] Jan 18, 2025 02:[address] ABD PEL W/CONT & 3D: NEISHA FISH [id number] -1945 M Ex Date: JAN 18, 2025@14:58 Req Phys: BRET PRINCE Loc: [facility]-EMERGENCY DEPT 2ND SHIFT (R Img Loc: [facility]-CT IMAGING [facility] Service: Unknown [facility], [facility] [address] [place] [address] (Case [id number] COMPLETE) CT ABDOMEN AND PELVIS W/CONTRAST (CT Detailed) CPT:18973 Contrast Media : Non-ionic Iodinated Reason for [...] 18, 2025 Date Verified: JAN 18, 2025 Flour Worker E-Sig:/ES/Laila Deluca MD Report: EXAMINATION: CT ABDOMEN [...] posterior rib. Dictated by Britany Mathias M.D. (student services vice president) I, Lalia Deluca, have reviewed the images and report and concur with these findings. Primary Interpreting Staff: Laila Deluca MD, Radiologist (Flour Worker) Primary Interpreting Resident: BRITANY MATHIAS, /LAILA GARCIA [facility] Jan 18, 2025 12:01 PM CHEST PORTABLE: NEISHA FISH [id number] -1945 M Ex Date: JAN 18, 2025@12:01 Req Phys: PRESTON JONES Loc: [facility]-EMERGENCY DEPT 2ND SHIFT (R Img Loc: [facility]-MAIN RADIOLOGY SUITE Service: [facility], [facility] [address] [place] [address] (Case [id number] COMPLETE) CHEST PORTABLE (RAD Detailed) CPT:92714 Proc Modifiers : Portable Reason for Study: shortness of breath Clinical History: Report Status: Verified Date Reported: JAN 18, 2025 Date Verified: JAN 18, 2025 Flour Worker E-Sig:/ES/Laila Deluca MD Report: CHEST PORTABLE CASE #: [id number] DATE:01/18/2025 12:31 PM CLINICAL HISTORY:shortness of breath COMPARISON: 09/27/2023 TECHNIQUE: CHEST PORTABLE Impression: FINDINGS/IMPRESSION: Lordotic portable chest radiograph reveals some right midlung scarring which is slightly more conspicuous than on the preceding study. No focal pneumonia or pleural effusion. Heart size within normal limits. No CHF. No fracture. No pneumothorax. Primary Interpreting Staff: Laila Deluca MD, Radiologist (Flour Worker) /LAILA LANCE [facility] Pathology Reports: +/- 30 days [...] the Encounter. The data comes from all NH treatment facilities. Date/Time Pathology Report Provider Source Jan [...] - - - - $TEXT Submitted by: TRADE TO REBATE Date obtained: Jan 19, 2025 - - [...] YELLOW UNFIXED FLUID RECEIVED FOR PATIENT: NEISHA FISH [id number]. 2 PAP STAINED CYTOSPINS AND ONE CELL [...] 2025@14:18 Performing Laboratory: Cytology Report Performed By: [facility] [address] [facility] CLIA# [id number] [address] [place] [phone] $FTR - - - - - - - - - - - - - - - - - - - - - - - - - - - - - - - - - - - - - - - - (End of report) LUAN ARANGO MD Date Jan 22, 2025 - - - - - - - - - - - - - - - - - - - - - - - - - - - - - - - - - - - - - - - - NEISHA FISH STANDARD FORM 515 ID:[id number] SEX:M :1945 AGE: 79 LOC:APFEE PCP: Rigo Florian /rocio ARANGO MD, PhD STAFF PATHOLOGIST Signed: 01/22/2025 14:18 LUAN ARANGO [facility] Encounter Notes: All associated encounter notes This section contains the clinical notes associated to the Encounter. Date/Time Encounter Note(s) Provider Source Jan 11, 2025 09:16 AM GASTROENTEROLOGY O UTPATIENT NOTE: LOCAL TITLE: GASTROENTEROLOGY OUTPATIENT FOLLOW UP [facility] STANDARD TITLE: GASTROENTEROLOGY OUTPATIENT NOTE DATE OF NOTE: JAN 11, 2025@09:16 ENTRY DATE: JAN 11, 2025@09:17:05 AUTHOR: KASSI FRANK EXP COSIGNER: URGENCY: STATUS: COMPLETED GASTROENTEROLOGY OUTPATIENT FOLLOW UP [facility] Has ADDENDA Reviewed chart in follow up: DEC 01, 2024 - Bedside u/s does not reveal ascites DEC 11, 2024 - Dr. Bui rc'ed Rifaximebiju for SALLYO Received the following message The states that he has gone for a week without the amiloride. The Vet received #360 tablets on 11/13/24, and can not account for the missing month's worth of medication. The Vet is asking if a new order can be entered to be filled as soon as possible. Please review and alert outpatient pharmacy if it is appropriate to issue a new prescription or reach out to the [facility] to advise. If approved, please indicate on the Rx early refill replacement is authorized. Thank you! <-- AMILORIDE HCL 5MG TAB [id number] ACTIVE/SUSP 360 12/27/2025 12/26/2024 01/30/2025 3 KASSI FRANK 21.024 TAKE TWO TABLETS BY MOUTH TWICE A DAY FOR HIGH BLOOD PRESSURE Will refill to avoid fluid overload. cc: Pharmacist Vira to authorization. SARAH Bacon could you call pt and confirm he is taking the above medicaiton as directed? Would not recommend self titrating medication and would also like to rule out any errors in med set up. Finally, if pt has help with med set up can send orders directly to whomever that is. On the date of the encounter, I spent 15 minutes on some or all of the following: chart review, history, physical examination, treatment planning, education and counseling of the patient/family/critical care physician assistant, placing orders, communicating with other health care providers, and documentation in the electronic health record. /zachary/ Kassi Frank PA-C Gastroenterology/Hepatology Physician Bus System Operator Signed: 01/11/2025 09:22 Receipt Acknowledged By: 01/11/2025 09:48 /zachary/ STEFANY PEREZ [facility] PHARMACIST 01/12/2025 13:19 /zachary/ BRAEDEN BACON RN HEPATOLOGY COMMUNITY OUTREACH MANAGER 01/12/2025 ADDENDUM STATUS: COMPLETED I called and spoke to Mr Fish to confirm what dosage of Amiloride he has been taking. He was not at home when I spoke to him so he did not have the medication bottle in hand when we spoke. I tried explaining that the instructions were to take two tablets twice a day--he thinks he has been taking it that way. I inquired why he would have run out a month early and he did not know what I was talking about. I will call him again on Wednesday to confirm he is taking the amilordie correctly. /zachary/ BRAEDEN BACON RN HEPATOLOGY COMMUNITY OUTREACH MANAGER Signed: 01/12/2025 13:26 [facility]
--- OUTSIDE RECORDS SUMMARY | 2025-01-18 04:30 | XMS_ITS | Encounter Summary ---
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 Inferior Thorax: New small right pleural effusion with persistent mitral valve annular calcification and prominent bilateral symmetric gynecomastia. Right lower lobe subpleural bullae. Vasculature: Calcified plaque; aortic caliber does not exceed 2.9 cm. Normal portal venous and hepatic venous enhancement for the contrast bolus timing. Liver: Prominent nodular contour with left lobe enlargement consistent with cirrhosis. No discrete masses nor abnormal enhancement. Gallbladder: Normal. Bile Ducts: The intrahepatic and extrahepatic bile ducts are normal for the patient's stated age. Spleen: Enlarged, measuring at least 15.2 cm in craniocaudal length, without mass. Pancreas: Atrophic changes of the pancreatic head. Kidneys: Normal. Stable simple lateral left renal cortical cyst. Adrenal Glands: normal Bowel: Unremarkable. The previously noted ascending cirrhotic colopathy is less apparent currently. Appendix: Normal. Retroperitoneum and Mesentery: Prominent ascites, with fluid filling a left paraumbilical hernia through a new 9 mm defect. The fluid-filled hernia sac measures at least 4 x 3.3 x 2.4 cm. Multiple stable visible but nonenlarged periaortic retroperitoneal lymph nodes. No discrete mesenteric lymphadenopathy. Urinary Bladder: Obscured due to metallic streak artifact associated with the bilateral hip arthroplasty materials. Reproductive/Other Pelvic Contents: Again partially obscured by the metallic artifact. Bilateral inguinal herniorrhaphies have been performed. However, there is fluid in what appears to be a likely femoral hernia which lies directly adjacent to the lateral margin of the inguinal canal and medial to the common femoral vein. (Series 3, image 152). This measures at least 2.7 x 1.9 x 1.8 cm and 19 Hounsfield units. Musculoskeletal/Soft Tissues: Mild lumbar dextroscoliosis with diffuse degenerative endplate, facet and disc disease. Right total hip arthroplasty components with at least 3 transcervical intramedullary nails and an intramedullary marianela observed within the left femur. Old healed left acetabular fracture. A stable appearing 10 x 7.3 x 3 cm nonenhancing intermediate density mass (45.7 Hounsfield units) is again noted along the left posterior chest wall, overlying the posterolateral ninth and 10th ribs, presumably a posttraumatic hematoma/seroma without underlying bony abnormality. Impression: 1. *Numbering interval significant increase in the [...] the posterolateral left ninth and 10th ribs. DIAGNOSIS: periumbilical hernia ASSESSMENT/PLAN: 79-year-old male with complex past medical history including alcohol-associated cirrhosis complicated by portal hypertension, hepatic encephalopathy, and ascites well controlled on daily diuretics who presents for evaluation of a symtptomatic umbilical hernia. No history of incarceration or associated skin compromise. Discomfort has been controlled well with use of a hernia support belt. Patient reports worsening abdominal distension, lower extremity edema and difficulty breathing over the past few days. His abdomen is tensely distended on exam though no fluid wave to definitely suggest ascites. We discussed that he should present to the ED from clinic for further medical evaluation given his deconditioning and unclear etiology of his distension. We will have him return to clinic in 3 months to re-evaluate his hernia for repair. the patient was counselled on his elevated surgical risk profile attributed to cirrhosis however umbilical hernia repair with mesh placement would be, assuming his ascites remains well controlled, reasonable to help prevent future complications such as bowel obstruction, flood syndrome, etc. - Sending patient to ED today given worsening abdominal distension and dyspnea - Return to General Surgery II clinic in 3 months - Continue wearing hernia support belt /zachary/ SUSIE MESSER GEN SURG RESIDENT Signed: 01/18/2025 10:50 /zachary/ Dilip Frost III, MD [facility] General Surgery Attending Cosigned: 01/24/2025 11:51 01/24/2025 ADDENDUM STATUS: COMPLETED The patient was seen and examined on: 01/18/25 I have examined the patient with the resident. I have discussed the patient with the resident team and I agree with the above. I have reviewed the patient's prior notes, pertinent labs and imaging reports, and personally reviewed relevant imaging. 79 year-old male with cirrhosis with umbilical hernia desiring repair. He is decompensated today likely with large volume ascites. Though he had planned appointment for paracentesis and we contemplated him going directly for paracentesis, he complained of new lower extremity edema and had visible increased work of breathing and reported worsening shortness of breath. Because we did not have the ability to fully rule out additional cardiac concern, he was taken to the Emergency Department. Follow-up when ascites is more appropriately controlled. 45 minutes spent on some or all of the following: chart review, history, physical examination, treatment planning, education, and counseling of the patients/family/caregiver, placing orders, communicating with other health care providers, and documentation in the electronic health record /es/ Dilip Frost III, MD FACS General Surgery Attending Signed: 01/24/2025 12:07 SUSIE MESSER [facility]
--- OUTSIDE RECORDS SUMMARY | 2025-01-18 05:51 | XMS_ITS | Encounter Summary ---
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 lifetime, have you ever done anything, started to do anything, or prepared to do anything to end your life (for example, collected pills, obtained a gun, gave away valuables, went to the roof but didn't jump)? No 8. If YES, was this within the past 3 months? Response not required due to responses to other questions. Emergency Severity Index (GIGI) level: Level 3 Previously documented allergies: SULFA DRUGS, OXYBUTYNIN CHLORIDE Current Problems: 1) Microscopic Hematuria 2) Alcoholic cirrhosis (SNOMED CT [id number]) 3) Hernia of abdominal wall 4) Insomnia 5) Amputated below knee 6) Walking disability 7) Depression 8) Obstructive sleep apnea syndrome 9) Gastroesophageal reflux disease 10) Solitary nodule of lung 11) Legal problem 12) Moderate protein-calorie malnutrition (weight for age 60-74% of standard) 13) Anxiety ([facility] [id number]) 14) Benign Prostatic Hypertrophy With Outflow Obstruction ([facility] [id number]) 15) History of Polyp of Colon ([facility] [id number]) 16) Internal hemorrhoids 17) Vitamin D Deficiency ([facility] [id number]) 18) Allergic Rhinitis ([facility] [id number]) 19) Closed fracture of left acetabulum 20) Narcolepsy 21) AF - Atrial Fibrillation ([facility] [id number]) 22) PE - Pulmonary Embolism ([facility] [id number]) 23) H/O: surgery 24) Low Back Pain ([facility] [id number]) 25) Osteoporosis ([facility] [id number]) 26) Renal Impairment ([facility] [id number]) 27) Mild cognitive impairment 28) COPD - Chronic Obstructive Pulmonary Disease ([facility] [id number]) /zachary/ MARY KEN RN REGISTERED NURSE Signed: 01/18/2025 11:19 01/18/2025 ADDENDUM STATUS: COMPLETED 1215 Assumed care of patient from the . patient wheeled to exam room 104-1 for c/o abdominal distention,m SOB and BLE swelling. pt given a gown to undress into. patient placed on blood pressure cuff, and pulse ox. pt covered with blankets. call light placed at bedside. pt waiting for provider evaluation. accompanied patient to exam room. 1218 pcxr done at bedside. 1221 ekg done at bedside. 1300 pt requesting pain/nausea meds. 1308 Dr. Prince made aware of pt's request. 1400 Blood Pressure: 127/72 Pulse: 84 Pain: 0 Pulse Oximetry: 97% 1424 see BCMA bumex 1mg IVP given. 1440 pt placed in the [facility] to wait for transport to CT. [address] 600ml of clear yellow urine emptied from urinal. 1555 see [facility]MA zofran 4mg IVP given. morphine 2mg IVP given. rates pain level an 8. pepcid 20mg IVPB started. 1630 resting quietly on stretcher. pt is alert and voices no complaints or needs. no distress noted by nurse, pt is stable at this time. 1700 Blood Pressure: 130/69 Pulse: 74 Pain: 0 Pulse Oximetry: 100% 1705 pt requesting additional pain medicine. made aware. 1715 call placed to lab regarding ammonia level. tech states analyzer was down and the test is currently being processed. 1738 see BCMA morphine 2mg IVP given. rates pain level. 1830 Blood Pressure: 118/72 Pulse: 69 Pain: 4 Pulse Oximetry: 87% 1908 report given to SARAH Meyer. 1915 pt placed in the [facility] to wait for transport to . all belongings accompanied patient to unit. no distress noted upon disposition from the unit. oxygen on 2L MAIKOL /zachary/ ISAURO PEARSON RN Signed: 01/18/2025 19:34 MARY KEN [facility]
--- OUTSIDE RECORDS SUMMARY | 2025-01-18 14:26 | XMS_ITS ---
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 patient is at mild risk for development of pressure ulcer/injury. Sensory perception -- ability to respond meaningfully to pressure-related discomfort Slightly limited. Moisture -- degree to which skin is exposed to moisture Rarely moist. Activity -- ability to change and control body position Walks occasionally. Mobility -- ability to change and control body position Slightly limited. Nutrition -- usual food intake patterns Adequate. Friction and shear Potential problem. INTERVENTIONS: No change in previous interventions as listed below Pressure Ulcer-Education 01/18/2025 Educate Importance Of Changing Position Provide Education On Cause/Prevention Provide Education Regarding Tx Plan Pressure Ulcer-Moisture 01/18/2025 No More Than 1 Linen Layer Pressure Ulcer-Nutrition 01/18/2025 Monitor Fluid/Food Intake Tray Set Up And Assistance Pressure Ulcer-Pressure Reducing 01/18/2025 Frequent Position Changes Pressure Ulcer-Remobilize 01/18/2025 Encourage Activity As Tolerated RISK FACTORS THAT INCREASE RISK FOR DEVELOPING PRESSURE INJURIES: The patient/resident has the following: Age over 75 Amputee: Comment: [place] BKA History of previous or current pressure ulcer/injury SKIN ALTERATIONS: Wound Documentation from the past year: Skin Assessment 01/18/2025 Skin Integrity - Wound medial aspect of L AKA Localized abnormality: Abrasion: Location(s): scattered BUE, R shoulder Bruising: Location(s): scattered back and shoulder Tear: Location(s): L arm - aquacel Wound - other than pressure ulcer/injury (includes open surgical wounds/incisions): Location: L AKA - aquacel No Edema Wound drainage none. /zachary/ LILI TAYLOR,RN REGISTERED NURSE Signed: 01/20/2025 08:53 ADAN GONZALEZ [facility] Jan 20, 2025 06:05 AM NURSING INPATIENT NOTE: LOCAL TITLE: [facility] NURSING FREQUENT DOCUMENTATION STANDARD TITLE: NURSING INPATIENT NOTE DATE OF NOTE: JAN 20, 2025@06:05 ENTRY DATE: JAN 20, 2025@06:05:07 AUTHOR: NEHA ULLOA EXP COSIGNER: URGENCY: STATUS: COMPLETED Version 2.4 Charting in accordance with [facility] COWLITZ STANDARD ([facility]) ACUTE INPATIENT/REHABILITATION NURSING ADMISSION SCREENING, ASSESSMENT, AND STANDARDS OF CARE ======== CARDIAC TELEMETRY ======== Normal Sinus Rhythm /zachary/ NEHA ULLOA RN REGISTERED NURSE Signed: 01/20/2025 06:05 NEHA ULLOA [facility] Jan 20, 2025 05:41 AM NURSING NOTE: LOCAL TITLE: [facility] SKIN INSPECTION/ASSESSMENT STANDARD TITLE: NURSING NOTE DATE OF NOTE: JAN 20, 2025@05:41 ENTRY DATE: JAN 20, 2025@05:42:03 AUTHOR: NEHA ULLOA EXP COSIGNER: URGENCY: STATUS: COMPLETED SKIN/WOUND DRESSING: Location(s): left stump Dressing change per order Second SKIN/WOUND DRESSING: Location(s): left ac Other comments: Third SKIN/WOUND DRESSING: Location(s): left lateral abdomen Clean Dry Intact /zachary/ NEHA ULLOA RN REGISTERED NURSE Signed: 01/20/2025 05:43 LAILA,NEHA [facility] Jan 20, 2025 05:13 AM CARDIOLOGY NOTE: LOCAL TITLE: CARDIOLOGY TELEMETRY STL STANDARD TITLE: CARDIOLOGY NOTE DATE OF NOTE: JAN 20, 2025@05:13 ENTRY DATE: JAN 20, 2025@05:13:05 AUTHOR: BRANDON ZAMORA EXP COSIGNER: URGENCY: STATUS: COMPLETED Telemetry reviewed: Normal Sinus Rhythm w/ PACs - PAT MICROBIOLOGICAL ANALYST #: 100 RATE: 64-84 bpm SHIFT: 11-7 Shift COMMENT: /rocio ZAMORA MEDICAL STOCK OR DELIVERY CLERK - TELEMETRY Signed: 01/20/2025 05:22 BRANDON ZAMORA Epifanio [facility] Jan 20, 2025 02:07 AM NURSING INPATIENT NOTE: LOCAL TITLE: [facility] PATIENT SAFETY CHECK STL STANDARD TITLE: NURSING INPATIENT NOTE DATE OF NOTE: JAN 20, 2025@02:07 ENTRY DATE: JAN 20, 2025@02:07:22 AUTHOR: NEHA ULLOA EXP COSIGNER: URGENCY: STATUS: COMPLETED BEDSIDE SAFETY CHECK STL A visual sweep of the patient's room for any physical or environmental safety concerns was completed. pt lying in bed with eyes closed. breathing is even and unlabored. pt appears to be sleeping. no observable signs of pain, discomfort or distress noticed. /rocio ULLOA RN REGISTERED NURSE Signed: 01/20/2025 02:08 NEHA ULLOA [facility] Jan 19, 2025 09:51 PM NURSING NOTE: LOCAL TITLE: [facility] PROGRESS NOTE STL STANDARD TITLE: NURSING NOTE DATE OF NOTE: JAN 19, 2025@21:51 ENTRY DATE: JAN 19, 2025@21:51:42 AUTHOR: NEHA ULLOA EXP COSIGNER: URGENCY: STATUS: COMPLETED DAFNE PROGRESS NOTE STL Has ADDENDA pt took evening medications without incident. pt given onetime pain medication. pt given additional hydration and assisted in repositioning in bed. /rocio ULLOA RN REGISTERED NURSE Signed: 01/19/2025 21:52 01/19/2025 ADDENDUM STATUS: COMPLETED 2200 pt requests to be cleaned up and fresh linens. 2230 pt states that he is constipated. pt receptive to provider being notified. 2310 pt request evening snack. /rocio ULLOA RN REGISTERED NURSE Signed: 01/19/2025 23:53 01/20/2025 ADDENDUM STATUS: COMPLETED pt called out for pain medication. /rocio ULLOA RN REGISTERED NURSE Signed: 01/20/2025 02:28 01/20/2025 ADDENDUM STATUS: COMPLETED pt lying in bed with eyes closed. breathing is even and unlabored. pt appears to be sleeping. no observable signs of pain, discomfort or distress noticed. /rocio ULLOA RN REGISTERED NURSE Signed: 01/20/2025 05:12 01/20/2025 ADDENDUM STATUS: COMPLETED pt called out for ice water and for his dressing to be changed. /rocio ULLOA RN REGISTERED NURSE Signed: 01/20/2025 05:29 NEHA ULLOA [facility] Jan 19, 2025 09:43 PM NURSING INPATIENT NOTE: LOCAL TITLE: [facility] NURSING FREQUENT DOCUMENTATION STANDARD TITLE: NURSING INPATIENT NOTE DATE OF NOTE: JAN 19, 2025@21:43 ENTRY DATE: JAN 19, 2025@21:43:48 AUTHOR: ELIZABETH HILL EXP COSIGNER: URGENCY: STATUS: COMPLETED Version 2.4 Charting in accordance with [place] APPROVED [place] STANDARD ([facility]) ACUTE INPATIENT/REHABILITATION NURSING ADMISSION SCREENING, ASSESSMENT, AND STANDARDS OF CARE ======== ACTIVITIES OF DAILY LIVING ======== Hygiene ADLs: Dressing: Upper Body: Minimal assist Lower Body: Minimal assist Eating: Independent Foot Care: Inspection Hand Hygiene: Performed post toileting Oral Care: Non-ventilator patient: Patient teeth brushed: Independently help with set up [facility] [place] was educated that poor oral hygiene increases the risk of hospital acquired pneumonia and dental problems like gingivitis and tooth decay. was educated using their preferred method and verbalized understanding. Pericare: Soap and water Independent Personal Care: Bath Independent Minimal assist Comment: all fresh linen Toileting: Independent ========= ACTIVITY/MOBILIZATION ========= Mobility Status: Independent: Equipment utilized: Other: pt. says he is able to transfer to commode with out assistance from staff Mobilization Tolerance: Tolerates well Gait: Steady [facility] - Highest Level of Mobility achieved this shift: 4 - Transferred to chair/commode ======== ENVIRONMENTAL SAFETY MANAGEMENT ======== Implemented safety standards of care: -[place] to unit & environment -Adequate room lighting -Bed in low and locked position -Call light within reach -Personal items within reach -Traffic path in room free of clutter -Non-slip footwear -Upper/half length side rails up for bed mobility -Sensory aids within reach -Encourage patient to utilize sensory support Additional safety measures: Mobility support items readily available ======== GASTROINTESTINAL ======== Last bowel movement: 01/19/2025 Elimination: Continent Symptoms: Constipation ======== GENITOURINARY ======== Elimination: Continent ========= Pain ========= DVPRS Scale Location: across [facility] Pain Rating Scale (DVPRS): 8 Awful, hard to do anything Patient's acceptable pain goal: Pain Alleviating Interventions: /zachary/ NIESHA HILL CNA INTERNATIONAL MARKETING SPECIALIST Signed: 01/19/2025 21:54 ELIZABETH HILL [facility] Jan 19, 2025 09:15 PM NURSING INPATIENT NOTE: LOCAL TITLE: [facility] ACUTE INPATIENT NSG SHIFT ASSESSMENT STANDARD TITLE: NURSING INPATIENT NOTE DATE OF NOTE: JAN 19, 2025@21:15 ENTRY DATE: JAN 20, 2025@05:46:18 AUTHOR: NEHA ULLOA COSIGNER: URGENCY: STATUS: COMPLETED Version 2.2 Charting in accordance with [facility] APPROVED [place] STANDARD ([facility]AAES) ACUTE INPATIENT/REHABILITATION NURSING ADMISSION SCREENING, ASSESSMENT, AND STANDARDS OF CARE ======== ASSESSMENT ======== ======== PAIN ASSESSMENT ======== Patient's acceptable pain goal: 0 No pain Are you currently experiencing pain? Yes - DVPRS scale used to assess Location: abdomen [facility] Pain Rating Scale (DVPRS): 6 Hard to ignore, avoid usual activities Pain Score: 6 ======== ENVIRONMENTAL SAFETY MANAGEMENT ======== Implemented safety standards of care: -[place] to unit & environment -Adequate room lighting -Bed in low and locked position -Call light within reach -Personal items within reach -Traffic path in room free of clutter -Non-slip footwear -Upper/half length side rails up for bed mobility -Sensory aids within reach -Encourage patient to utilize sensory support ======== NEUROLOGICAL ======== Neurological Orientation: Oriented x4 Level of Consciousness (AVPU): Alert = Appears aware of and responsive to the environment on their own. Follows commands, opens eyes spontaneously, and tracks objects. ======== NEUROMUSCULAR/NEUROVASCULAR EXTREMITIES ASSESSMENT ======== Strength: Portable Machine Sander Bilateral: Moderate Upper Extremity Bilateral: Full strength Lower Extremity Bilateral: Unequal Lower Extremity Strength: Right: Moves against gravity Left: Amputation present Sensation: Upper Extremity Sensation Bilateral: Intact Lower Extremity Sensation Bilateral: Intact Temperature: Upper Extremity Temperature Bilateral: Cool Lower Extremity Temperature Bilateral: Cool ======== CARDIOVASCULAR ======== Heart Sounds: Normal (S1S2) Heart Rate/Rhythm (without surveillance system monitor): Regular Capillary Refill: R Hand: Less than or equal to 3 seconds L Hand: Less than or equal to 3 seconds R Foot: Greater than 3 seconds L Foot: Unable to assess Peripheral Pulses: R Radial: L Radial: R Dorsalis Pedis: 2+ Weak L Dorsalis Pedis: Unable to assess R Posterior Tibial: L Posterior Tibial: R Popliteal: L Popliteal: 3+ Normal Edema: Present Dependent Location: right leg Additional location: abdomen ======== RESPIRATORY ======== Respirations: Unlabored Pattern: Regular Breath Sounds Auscultated: Anterior and posterior Right Upper Lobe: Clear Left Upper Lobe: Clear Right Middle Lobe: Diminished Right Lower Lobe: Diminished Left Lower Lobe: Diminished ======== GASTROINTESTINAL ======== Abdominal Description: Protuberant (central obesity) Taut Palpation: Guarding Bowel Sounds: RUQ: Active LUQ: Active RLQ: Active LLQ: Active ======== GENITOURINARY ======== Elimination: Continent ======= INTEGUMENTARY/SKIN/WOUND - (INCLUDING JACE) SEE NOTE: VAAES SKIN INPECTION/ASSESSMENT ======= ======== IV LINES ======== Peripheral IV: Line #1: Assessment: Location: Left, Forearm Gauge: 20 Dressing Condition: Clean, dry, intact Site Condition: No redness, swelling, pain Line Status: Flushed ======== PSYCHOSOCIAL ======== Type of Emotional Support Provided: 1:1 discussion, Anticipated outcomes, Coping skills discussion, Hospitalization discussion, Treatment discussion, Ventilation of feelings mechelle /zachary/ NEHA ULLOA RN REGISTERED NURSE Signed: 01/20/2025 05:52 NEHA ULLOA [facility] Jan 19, 2025 09:15 PM NURSING NOTE: LOCAL TITLE: [facility] SKIN INSPECTION/ASSESSMENT STANDARD TITLE: NURSING NOTE DATE OF NOTE: JAN 19, 2025@21:15 ENTRY DATE: JAN 20, 2025@05:52:42 AUTHOR: NEHA ULLOA EXP COSIGNER: URGENCY: STATUS: COMPLETED Assessment Type: SKIN REINSPECTION/REASSESSMENT SKIN INSPECTION: Skin Color: Pale Skin Temperature: Warm Skin Moisture: Dry Skin Turgor: Non-Elastic, Tight(Taut)-abdomen Jace Skin Assessment: The patient's Jace Scale Score is 18. The patient is at mild risk for development of pressure ulcer/injury. Sensory perception -- ability to respond meaningfully to pressure-related discomfort No impairment. Moisture -- degree to which skin is exposed to moisture Rarely moist. Activity -- ability to change and control body position Chair fast. Mobility -- ability to change and control body position Slightly limited. Nutrition -- usual food intake patterns Adequate. Friction and shear Potential problem. INTERVENTIONS: No change in previous interventions as listed below Pressure Ulcer-Education 01/18/2025 Educate Importance Of Changing Position Provide Education On Cause/Prevention Provide Education Regarding Tx Plan Pressure Ulcer-Moisture 01/18/2025 No More Than 1 Linen Layer Pressure Ulcer-Nutrition 01/18/2025 Monitor Fluid/Food Intake Tray Set Up And Assistance Pressure Ulcer-Pressure Reducing 01/18/2025 Frequent Position Changes Pressure Ulcer-Remobilize 01/18/2025 Encourage Activity As Tolerated RISK FACTORS THAT INCREASE RISK FOR DEVELOPING PRESSURE INJURIES: The patient/resident has the following: Age over 75 Amputee: Device(s): (nasogastric tubes, oxygen tubing, urinary catheters, cell phone etc.) Comment: piv, telemetry Localized abnormality: Tear: Location(s): left ac Wound - other than pressure ulcer/injury (includes open surgical wounds/incisions): Location: left stump No Edema Wound drainage none. Incision and Flaps: Incision 1: Location: left lateral trunk Status: Unable to visualize Surrounding tissue: Intact Wound drainage none. Dressing type: Gauze Transparent /rocio ULLOA RN REGISTERED NURSE Signed: 01/20/2025 05:55 NEHA ULLOA [facility] Jan 19, 2025 08:57 PM NURSING INPATIENT NOTE: LOCAL TITLE: [facility] NURSING FREQUENT DOCUMENTATION STANDARD TITLE: NURSING INPATIENT NOTE DATE OF NOTE: JAN 19, 2025@20:57 ENTRY DATE: JAN 19, 2025@20:57:40 AUTHOR: NEHA ULLOA EXP COSIGNER: URGENCY: STATUS: COMPLETED [facility] NURSING FREQUENT DOCUMENTATION Has ADDENDA Version 2.4 Charting in accordance with [place] APPROVED [place] STANDARD (MAAES) ACUTE INPATIENT/REHABILITATION NURSING ADMISSION SCREENING, ASSESSMENT, AND STANDARDS OF CARE ======== PROVIDER NOTIFICATION ======== Notification Reason: Pain: provider made aware that pt is c/o pain 01/21. provider will meet with pt at the bedside. /rocio ULLOA RN REGISTERED NURSE Signed: 01/19/2025 20:58 01/19/2025 ADDENDUM STATUS: COMPLETED provider made aware that pt is c/o constipation. provider will place order. /rocio ULLOA RN REGISTERED NURSE Signed: 01/19/2025 22:14 NEHA ULLOA [facility] Jan 19, 2025 07:05 PM CARDIOLOGY NOTE: LOCAL TITLE: CARDIOLOGY TELEMETRY STL STANDARD TITLE: CARDIOLOGY NOTE DATE OF NOTE: JAN 19, 2025@19:05 ENTRY DATE: JAN 19, 2025@19:05:25 AUTHOR: KI ROGEL EXP COSIGNER: URGENCY: STATUS: COMPLETED Telemetry reviewed: Normal Sinus Rhythm MICROBIOLOGICAL ANALYST #: 100 RATE: 70s SHIFT: 3-11 Shift COMMENT: A hard copy of the telemetry strip was placed in the patients chart. /zachary/ KI ROGEL CUSTOMER OPERATIONS INTERN Signed: 01/19/2025 19:05 KI ROGEL [facility] Jan 19, 2025 01:36 PM ADDENDUM: LOCAL TITLE: Addendum STANDARD TITLE: ADDENDUM DATE OF NOTE: JAN 19, 2025@13:36:50 ENTRY DATE: JAN 19, 2025@13:36:51 AUTHOR: MEG GARCIA EXP COSIGNER: URGENCY: STATUS: COMPLETED MALNUTIRITION - present on admission Based on the ASPEN/AND malnutrition diagnosis guide (with = or > 2 indicators present), the following clinical characteristics support a diagnosis of: Moderate protein-calorie malnutrition in the context of: Chronic illness as evidenced by: Insufficient energy intake < 75% of estimated energy requirement for = or > 1 month Mild loss of muscle mass Mild loss of subcutaneous fat /rocio Garcia, MS, RDN Clinical Dietitian Signed: 01/19/2025 13:37 Receipt Acknowledged By: 01/21/2025 01:30 /zachary/ Sabine Gillis MD PhD Staff Physician - Hematology & Oncology --- Original Document --- 01/19/25 NUTRITION ASSESSMENT STL: Nutrition Assessment SGA (detailed) SUBJECTIVE GLOBAL ASSESSMENT: WEIGHT HISTORY: 1 Weight loss/gain however not significant APPETITE INTAKE: 2 Significant appetite/intake changes GASTROINTESTINAL SYMPTOMS: 0 No Chewing Issues 0 No swallowing issues 0 No nausea/vomiting issues 0 No diarrhea issues FUNCTIONAL CAPACITY: 0 Functional capacity does not interfere Nutrition Status Note: Ambulatory (i.e. capable of only activities of daily living) METABOLIC STRESS: 2 Pt with significant metabolic stress -Moderate increase activity i.e., initiation of daily PT therapy, Stage II-III wounds, mild infection, extended surgical procedure, CHF, mild exacerbation of chronic disease -High high-intensity physical activity, major surgery, acute pancreatitis, SIRS, vent dependent stressed, wound Stage IV PHYSICAL NUTRITION ASSESSMENT: 2 Pt with signs of fat and/or muscle loss or abnormal fluid status NUTRITIONAL RISK: Patient's total compiled SGA rating is >5 and the clinical judgment of the Registered Dietitian indicates a more complex level of nutrition risk and further nutritional assessment warranted to determine nutrition risk level. 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 Reports that he lives at an assisted living facility who provides 3 meals per day. Reports that he typically has a breakfast biscuit for breakfast, will skip lunch and have the dinner provided. Reports that he is consuming 2 Ensure Plus per day. Reports early satiety. Reports that he consumed ~50% of his breakfast tray this morning. Documented intake not yet available this admission. Medications and Herbal Supplements: PANCRELIPASE (CREON) [id number]/ PO TID AC 2 CAPSULES COLESTIPOL TAB PO BID AC give other meds 1 hour before or 4 hours after COLESTIPOL RIFAXIMIN TAB PO BID 550MG FUROSEMIDE INJ,SOLN IVP QAM DIURETIC Anthropometric Measurements: Ht: 71 in [180.3 cm] (01/18/2025 09:19) Wt: 185 lb [83.91 kg] (01/18/2025 09:19) BMI: 25.9 Weight History/Significant changes: +7 lbs. (4%) in 2 months, reporting that he believes he gained 20 lbs. and that he previously lost 30 lbs. intentionally. Patient Weight History - Last Four 1. 185.0 lbs. / 83.9 kg. on JAN 18, 2025@09:19:32 2. 180.3 lbs. / 81.8 kg. on DEC 20, 2024@10:23:19 3. 176.0 lbs. / 79.8 kg. on DEC 11, 2024@13:39:21 4. 178.4 lbs. / 80.9 kg. 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 leg edema Non-healing wound on L. stump 1.5cm NUTRITIONAL FOCUSED PHYSICAL EXAM FINDINGS: Fat status: Mild subcutaneous fat wasting noted in fat overlaying the ribs Muscle Status: Mild muscle mass wasting noted in clavicle region (pectoralis major, deltoid), shoulder region (acromion process, deltoid, trapezius) Nutrition Prescription: Estimated energy needs: 2098 kcals (25kcals/kg ABW) Estimated protein needs: 101-126g (1.2-1.5g/kg ABW) Estimated fluid needs: 2098ml (ml/kcal) NUTRITION DIAGNOSIS NEW Increased protein needs related to increased demand for nutrient as evidenced by loss of skin integrity, loss of muscle mass and subcutaneous fat, estimates of insufficient intake of energy or high-quality protein from diet when compared to requirements and cirrhosis. [physiological-metabolic etiology] MALNUTIRITION - present on admission Based on the ASPEN/AND malnutrition diagnosis guide (with = or > 2 indicators present), the following clinical characteristics support a diagnosis of: Moderate protein-calorie malnutrition in the context of: Chronic illness as evidenced by: Insufficient energy intake < 75% of estimated energy requirement for = or > 1 month Mild loss of muscle mass Mild loss of subcutaneous fat NUTRITION INTERVENTIONS --Nutrition Prescription-- Restricted sodium diet: low sodium diet --Meals and Snacks Encouraged to request snacks from bulk nourishment PRN --Medical Food Supplement Therapy Commercial beverage medical food supplement therapy: Added Ensure Plus TID to 39g protein [Justification: malnutrition and wound healing] --Nutrition Education Content Content related nutrition education: Discussed rationale for diet restrictions. Discussed protein role in wound healing and encouraged to concentrate on protein intake on meal trays. Encouraged good intake of meals over course of admission Method of education: verbal Response: understanding Barriers to learning/comprehension: none --Discharge and Transfer of Nutrition Care to a New Setting or Provider Discharge and transfer of nutrition care to another nutrition professional: pending medical outcome. NUTRITION MONITORING/EVALUATION Protein Intake: Protein estimated intake from oral diet in 24H >100g over the next 5 days. Follow up date: Jan /zachary/ Meg Garcia MS, RDN Clinical Dietitian Signed: 01/19/2025 13:36 MEG GARCIA [facility] Jan 19, 2025 12:31 PM INTERNAL MEDICINE INPATIENT NOTE: LOCAL TITLE: MEDICINE GENERAL INPATIENT NOTE STANDARD TITLE: INTERNAL MEDICINE INPATIENT NOTE DATE OF NOTE: JAN 19, 2025@12:31 ENTRY DATE: JAN 19, 2025@12:32:01 AUTHOR: BALTA BARR COSIGNER: SABINE VELA URGENCY: STATUS: COMPLETED SUBJECTIVE Major events overnight: NAEON. Patient has diffuse abdominal pain similar to yesterday. Otherwise, no concerns. OBJECTIVE/DATA VITALS Temp: 97.7 F [36.5 C] (01/19/2025 07:52) Pulse: 81 (01/19/2025 07:52) BP : 135/64 (01/19/2025 07:52) Resp: 18 (01/19/2025 07:52) Weight: 185 lb [83.91 kg] (01/18/2025 09:19) PHYSICAL EXAM General: NAD HEENT: Normocephalic, sclera white Neck: Supple, non-tender Cardiac: RRR, normal S1/S2, no m/r/g Pulm: CTAB, normal work of breathing Abdomen: + bowel sounds, soft, protuberant and distended, +fluid wave Extremities: Warm, round 1.5-cm wound on tip of left BKA stump, 2+ pitting edema of right leg Neurologic: AOx4, no gross focal deficits, spontaneously moving all extremities. Skin: warm, dry LABS SODIUM 136 mEq/L 01/18/2025 20:00 POTASSIUM 3.7 mEq/L 01/18/2025 20:00 CHLORIDE 103 mEq/L 01/18/2025 20:00 UREA NITROGEN 19.8 mg/dL 01/18/2025 20:00 CREATININE 0.98 mg/dL 01/18/2025 20:00 CALCIUM 8.4 mg/dL 01/18/2025 20:00 CARBON DIOXIDE 25 mEq/L 01/18/2025 20:00 GLUCOSE 102 H mg/dL 01/18/2025 20:00 EGFR (CKD-EPI 2020) 79.4 01/18/2025 20:00 WBC 5.1 10*3/uL 01/18/2025 20:00 RBC 4.14 10*6/uL 01/18/2025 20:00 HGB 11.5 L g/dL 01/18/2025 20:00 HCT 36.2 L % 01/18/2025 20:00 MCV 87.4 fL 01/18/2025 20:00 MCH 27.8 pg 01/18/2025 20:00 MCHC 31.8 L g/dL 01/18/2025 20:00 RDW 16.5 H % 01/18/2025 20:00 PLT 120 L 10*3/uL 01/18/2025 20:00 MPV 11.4 H fL 01/18/2025 20:00 NEUTROPHILS, AUTO % 70 % 01/18/2025 20:00 LYMPHOCYTES, AUTO % 12 % 01/18/2025 20:00 MONOCYTES, AUTO % 15 % 01/18/2025 20:00 EOSINOPHILS, AUTO % 3 % 01/18/2025 20:00 BASOPHILS, AUTO % 0 % 01/18/2025 20:00 NEUTROPHILS, ABSOLUTE 3.57 10*3/uL 01/18/2025 20:00 LYMPHOCYTES, ABSOLUTE 0.61 L 10*3/uL 01/18/2025 20:00 MONOCYTES, ABSOLUTE 0.75 10*3/uL 01/18/2025 20:00 EOSINOPHILS, ABSOLUTE 0.14 10*3/uL 01/18/2025 20:00 BASOPHILS, ABSOLUTE 0.01 10*3/uL 01/18/2025 20:00 NEUTROPHILS 85.7 % 01/18/2025 11:50 LYMPHOCYTES 4.5 % 01/18/2025 11:50 MONOCYTES 6.2 % 01/18/2025 11:50 EOSINOPHILS 2.7 % 01/18/2025 11:50 BASOPHILS 0.9 % 01/18/2025 11:50 IMMATURE [address]T FRACTION 3.2 % 01/18/2025 20:00 ANISOCYTOSIS 1+ 01/18/2025 11:50 POIKILOCYTOSIS 2+ 01/18/2025 11:50 TEARDROPS 1+ 01/18/2025 11:50 ACANTHOCYTES 1+ 01/18/2025 11:50 MACROCYTOSIS 1+ 01/18/2025 11:50 IMAGING Date Procedure CPT Status Case # 01/19/2025 ABDOMINAL PARACENTESIS WITH [id number] IMAGE GUIDANCE 01/18/2025 CT ABDOMEN AND PELVIS [id number] Verified [id number] W/CONTRAST 1. Hepatic cirrhosis with sequelae of portal [...] rib. Dictated by Britany Mathias M.D. (resident care director) I, Laila Deluca, have reviewed the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 Signed: 01/18/2025 22:12 RAJ PARTIDA [facility] Jan 18, 2025 09:34 PM NURSING NOTE: LOCAL TITLE: [facility] [place] SKIN INSPECTION/ASSESSMENT STANDARD TITLE: NURSING NOTE DATE OF NOTE: JAN 18, 2025@21:34 ENTRY DATE: JAN 18, 2025@21:34:23 AUTHOR: RAJ PARTIDA EXP COSIGNER: URGENCY: STATUS: COMPLETED Assessment Type: SKIN REINSPECTION/REASSESSMENT SKIN INSPECTION: Skin Color: Usual for ethnicity Skin Temperature: Warm Skin Moisture: Normal Skin Turgor: Elastic (normal/immediate) Jace Skin Assessment: The patient's Jace Scale Score is 19. The patient is considered not at risk for development of pressure ulcers/injuries. Sensory perception -- ability to respond meaningfully to pressure-related discomfort Slightly limited. Moisture -- degree to which skin is exposed to moisture Rarely moist. Activity -- ability to change and control body position Walks occasionally. Mobility -- ability to change and control body position Slightly limited. Nutrition -- usual food intake patterns Adequate. Friction and shear No apparent problem. INTERVENTIONS: New or changed pressure ulcer/injury interventions or medical condition. Education: Provide patient/caregiver education regarding causes and prevention of pressure ulcers/injuries. Provide patient/caregiver education regarding treatment plan for pressure ulcers/injuries. Teach patient/caregiver importance of changing position frequently for pressure ulcer/injury prevention. Pressure-Redistribution measures: Encourage small, frequent position changes Use pillows (or other pressure relieving devices) to separate pressure areas Maximize mobilization: Encourage activity as tolerated Manage moisture: No more than one linen layer below the patient/resident Manage nutrition: Monitor fluid/food intake Provide tray set-up and other assistance as needed RISK FACTORS THAT INCREASE RISK FOR DEVELOPING PRESSURE INJURIES: The patient/resident has the following: Age over 75 Amputee: Comment: CHEN Localized abnormality: Abrasion: Location(s): R shoulder FISHER TROLL LINE Bruising: Location(s): L back and shoulder Denuded (raw skin): Location(s): dime sized areas to bilateral arms Tear: Location(s): L arm Wound - other than pressure ulcer/injury (includes open surgical wounds/incisions): Location: medial aspect of L AKA Wound Description: Wound Bed Tissue Types: Granulation Kristi-wound skin status: Intact Usual for ethnicity No Edema Wound drainage none. /zachary/ RAJ PEARSON RN REGISTERED NURSE Signed: 01/18/2025 21:40 RAJ PARTIDA [facility] Jan 18, 2025 09:33 PM CARDIOLOGY NOTE: LOCAL TITLE: CARDIOLOGY TELEMETRY ST STANDARD TITLE: CARDIOLOGY NOTE DATE OF NOTE: JAN 18, 2025@21:33 ENTRY DATE: JAN 18, 2025@21:33:50 AUTHOR: KI ROGEL EXP COSIGNER: URGENCY: STATUS: COMPLETED Telemetry reviewed: Normal Sinus Rhythm, Sinus Tachycardia pacs pvcs MICROBIOLOGICAL ANALYST #: 100 RATE: 90s-100s SHIFT: 3-11 Shift COMMENT: A hard copy of the telemetry strip was placed in the patients chart. /zachary/ KI ROGEL CUSTOMER OPERATIONS INTERN Signed: 01/18/2025 21:34 KI ROGEL [facility] Jan 18, 2025 08:05 PM NURSING ADMISSION EVALUATION NOTE: LOCAL TITLE: [facility] NSG ADMISSION SCREEN STANDARD TITLE: NURSING ADMISSION EVALUATION NOTE DATE OF NOTE: JAN 18, 2025@20:05 ENTRY DATE: JAN 18, 2025@21:12:15 AUTHOR: RAJ PARTIDA EXP COSIGNER: URGENCY: STATUS: COMPLETED ======= ALLERGY/ADVERSE DRUG REACTION (ADR) REVIEW (MRT5) ======= FACILITY ALLERGY/ADR -------- No Remote Allergy/ADR Data available for this patient [facility] OXYBUTYNIN CHLORIDE [facility] SULFA DRUGS Allergy/Adverse Drug Reaction Review to be conducted by: Nurse: Results of Allergy/ADR Review: Allergy/Adverse Drug Reaction list confirmed. ====== MEDICATION REVIEW (MRR1) ====== Did patient bring medication(s) from home? No Medication Review conducted by Nurse Results of Medication Review: Active Medication List: INCLUDED IN THIS LIST: Alphabetical list of active outpatient prescriptions dispensed from this MA (local) and dispensed from another MA or [facility] facility (remote) as well as inpatient orders (local pending and active), local clinic medications, locally documented non-VA medications, and local prescriptions that have or been discontinued in the past 90 days. Non-VA Meds Last Documented On: Aug 17, 2024 NOTE The display of VA prescriptions dispensed from another MA or [facility] facility (remote) is limited to active outpatient prescription entries matched to National Drug File at the originating site and may not include some items such as investigational drugs, compounds, etc. NOT INCLUDED IN THIS LIST: Medications self-entered by the patient into personal health records (i.e. [employer]) are NOT included in this list. Non-VA medications documented outside this MA, remote inpatient orders (regardless of status) and remote clinic medications are NOT included in this list. The patient and provider must always discuss medications the patient is taking, regardless of where the medication was dispensed or obtained. CLIN ALBUMIN,HUMAN 25% INJ (Status=Active) ALBUMIN,HUMAN 25% BY INJECTION 100 ml IV LABEL@2 DELIVER TO GI 01/18 *2 BOTTLES TOTAL* Indication: FOR HYPOALBUMINEMIA OUTPT AMILORIDE HCL 5MG TAB (Status = Discontinued) TAKE TWO TABLETS BY MOUTH TWICE A DAY FOR HIGH BLOOD PRESSURE Rx# [id number] Last Released: 11/10/24 Qty/Days Supply: Rx Expiration Date: 02/15/25 Refills Remainin Indication: FOR HIGH BLOOD PRESSURE OUTPT AMILORIDE HCL 5MG TAB (Status = Discontinued) TAKE TWO TABLETS BY MOUTH TWICE A DAY FOR HIGH BLOOD PRESSURE Rx# [id number] Last Released: Qty/ Supply: Rx Expiration Date: 12/27/25 Refills Remainin Indication: FOR HIGH BLOOD PRESSURE OUTPT AMILORIDE HCL 5MG TAB (Status = Active) TAKE TWO TABLETS BY MOUTH TWICE A DAY FOR HIGH BLOOD PRESSURE Rx# [id number] Last Released: 01/15/25 Qty/Days Supply: Rx Expiration Date: 12/27/25 Refills Remainin Indication: FOR HIGH BLOOD PRESSURE INPT AMILORIDE HCL 5MG TAB (Status=Active) 10MG BY MOUTH TWICE A DAY Indication: FOR HIGH BLOOD PRESSURE Non-VA AMITRIPTYLINE HCL 10MG TAB TAKE ONE TABLET BY MOUTH ONCE A DAY VA RX: Medication prescribed by Non-VA provider Non-VA ASPIRIN 81MG EC TAB TAKE ONE TABLET BY MOUTH ONCE A DAY OUTPT ATROPINE 0.025/DIPHENOXYLATE 2.5MG TAB (Status = ) TAKE 1 TABLET BY MOUTH FOUR TIMES A DAY NEEDED FOR DIARRHEA NOT TO EXCEED 8 TABLETS/DAY. Rx# [id number] Last Released: 11/08/24 Qty/Days Supply: 90 Rx Expiration Date: 12/02/24 Refills Remainin Indication: FOR DIARRHEA Non-VA AZELASTINE 137MCG/SPRAY 200D NASAL INHL SPRAY 1 SPRAY IN NOSTRIL(S) TWICE A DAY OUTPT BISACODYL 5MG EC TAB (Status = ) TAKE TWO TABLETS BY MOUTH ONE TIME TAKE BISACODYL TABLETS AT 4PM ON AFTERNOON PRIOR TO TEST. CALL [phone] WITH ANY QUESTIONS ABOUT THESE INSTRUCTIONS. MAIL Rx# [id number] Last Released: 11/13/24 Qty/Days Supply: 07/24 Rx Expiration Date: 12/08/24 Refills Remainin Indication: Bowel Emptying CLIN BUMETANIDE 0.25MG/ML INJ (Status=) 1MG/4ML IVP ONE-TIME STAT (FOR E.R. ADMININISTRATION ONLY) Indication: FOR FLUID RETENTION (EDEMA) BCMA ORDER LAST ACTION: 01/18/25 14:24 GIVEN OUTPT CALCIUM 600MG/VITAMIN D 400UNIT TAB (Status = Active) TAKE 1 TABLET BY MOUTH TWICE A DAY WITH FOOD Rx# [id number] Last Released: 11/20/24 Qty/Days Supply: 180/ Rx Expiration Date: 07/14/25 Refills Remainin Indication: FOR CALCIUM SUPPLEMENTATION INPT CALCIUM 600MG/VITAMIN D 400UNIT TAB (Status=Active) 1 TABLET BY MOUTH TWICE A DAY WITH MEALS give with food Indication: FOR CALCIUM SUPPLEMENTATION Non-VA CETIRIZINE HCL 10MG TAB TAKE ONE TABLET BY MOUTH ONCE A DAY OUTPT COLESTIPOL HCL 1GM TAB (Status = Active) TAKE ONE TABLET BY MOUTH TWICE A DAY FOR DIARRHEA (OTHER MEDICATIONS SHOULD BE TAKEN 1 HOUR BEFORE OR 4 HOURS AFTER COLESTIPOL) Rx# [id number] Last Released: 12/07/24 Qty/Days Supply: 60 Rx Expiration Date: 08/16/25 Refills Remainin Indication: FOR DIARRHEA INPT COLESTIPOL HCL 1GM TAB (Status=Active) 1GM BY MOUTH TWICE A DAY BEFORE MEAL(S) give other meds 1 hour before or 4 hours after COLESTIPOL Indication: FOR DIARRHEA OUTPT COLON ELECTROLYTE LAVAGE PWD FOR SOLN (Status = ) MIX AND DRINK CONTENTS OF BOTTLE BY MOUTH DIRECTED (THE DAY BEFORE YOUR TEST ONLY DRINK CLEAR LIQUIDS-NO SOLID FOOD! TAKE THE BISACODYL TABLETS AT 4PM AND MIX THE CONTAINER WITH WATER AND REFRIGERATE. AT 7PM DRINK HALF OF THE CONTAINER. REFRIGERATE OVERNIGHT. COMPLETE CONTAINER 3 HRS BEFORE LEAVING HOME FOR TEST. READ YOUR INSTRUCTIONS!) Rx# [id number] Last Released: 11/14/24 Qty/Days Supply: 06/23 Rx Expiration Date: 12/08/24 Refills Remainin Indication: Bowel Emptying OUTPT CREON 36,000UNIT EC CAP (Status = Discontinued) TAKE 2 CAPSULES BY MOUTH THREE TIMES A DAY BEFORE MEALS FOR PANCREATIC INSUFFICIENCY TAKE WITH FOOD DIRECTED. Rx# [id number] Last Released: 08/08/24 Qty/Days Supply: 600/90 Rx Expiration Date: 01/10/25 Refills Remainin Indication: FOR PANCREATIC INSUFFICIENCY OUTPT CREON 36,000UNIT EC CAP (Status = Active) TAKE 2 CAPSULES BY MOUTH THREE TIMES A DAY BEFORE MEALS FOR PANCREATIC INSUFFICIENCY TAKE WITH FOOD DIRECTED. Rx# [id number] Last Released: 11/02/24 Qty/Days Supply: 600/90 Rx Expiration Date: 10/31/25 Refills Remainin Indication: FOR PANCREATIC INSUFFICIENCY INPT ENOXAPARIN 40MG/0.4ML INJ SYRINGE 0.4ML (Status=Active) 40MG/0.4ML UNDER THE SKIN QDAILY Indication: FOR ANTICOAGULATION Non-VA ESCITALOPRAM OXALATE 20MG TAB TAKE ONE-HALF TABLET BY MOUTH ONCE A DAY CLIN FAMOTIDINE 0.4MG/ML/NACL INJ,50ML (Status=) 20MG/50ML IVPB ONE-TIME STAT (FOR E.R. ADMINISTRATION ONLY) Indication: FOR GASTROESOPHAGEAL REFLUX DISEASE BCMA ORDER LAST ACTION: 01/18/25 15:46 GIVEN Non-VA FLUTICASONE PROP 50MCG 120D NASAL INHL INSTILL 1 SPRAY IN NOSTRIL(S) ONCE A DAY OUTPT FLUTICASONE PROP 50MCG 120D NASAL INHL (Status = Active) INSTILL 1 SPRAY IN NOSTRIL(S) ONCE A DAY (MUST BE USED DIRECTED FOR MINIMUM OF 21 DAYS TO PROVIDE ADEQUATE BENEFITS) Rx# [id number] Last Released: 09/12/24 Qty/Days Supply: Rx Expiration Date: 08/09/25 Refills Remainin Indication: FOR CHRONIC RHINOSINUSITIS INPT FLUTICASONE PROP 50MCG 120D NASAL INHL (Status=Active) 50MCG/1SPRAY NASAL QDAILY sent 01/18 Indication: FOR CHRONIC RHINOSINUSITIS OUTPT FUROSEMIDE 80MG TAB (Status = Discontinued) TAKE ONE TABLET BY MOUTH EVERY MORNING FOR FLUID RETENTION (EDEMA) Rx# [id number] Last Released: 10/23/24 Qty/Days Supply: Rx Expiration Date: 02/15/25 Refills Remainin Indication: FOR FLUID RETENTION (EDEMA) OUTPT FUROSEMIDE 80MG TAB (Status = Active) TAKE ONE TABLET BY MOUTH EVERY MORNING FOR FLUID RETENTION (EDEMA) Rx# [id number] Last Released: 01/17/25 Qty/Days Supply: Rx Expiration Date: 01/13/26 Refills Remainin Indication: FOR FLUID RETENTION (EDEMA) INPT FUROSEMIDE 10MG/ML INJ (Status=Active) 80MG/8ML IVP EVERY MORNING DIURETIC Indication: FOR FLUID RETENTION (EDEMA) INPT FUROSEMIDE 40MG TAB (Status=Discontinued) 80MG BY MOUTH EVERY MORNING DIURETIC Indication: FOR FLUID RETENTION (EDEMA) <Obsolete Order> OUTPT GABAPENTIN 100MG CAP (Status = Active) TAKE ONE CAPSULE BY MOUTH TWICE DAILY NEEDED FOR PAIN Rx# [id number] Last Released: 12/07/24 Qty/Days Supply: Rx Expiration Date: 12/07/25 Refills Remainin Indication: FOR PAIN OUTPT IPRATROPIUM BR 0.03% NASAL SPRAY (Status = On Hold) USE 2 SPRAYS INTO NOSTRIL(S) THREE TIMES A DAY Rx# [id number] Last Released: 08/14/24 Qty/Days Supply: Rx Expiration Date: 08/09/25 Refills Remainin Indication: FOR ALLERGIC RHINITIS OUTPT LOPERAMIDE HCL 2MG CAP (Status = ) TAKE ONE CAPSULE BY MOUTH FOUR TIMES A DAY NEEDED DIARRHEA Rx# [id number] Last Released: 12/22/24 Qty/Days Supply: Rx Expiration Date: 01/10/25 Refills Remainin Indication: DIARRHEA OUTPT MAGNESIUM CITRATE LIQUID (Status = Active) TAKE 1 BOTTLE BY MOUTH ONE-TIME PREP BEFORE COLONOSCOPY Rx# [id number] Last Released: 11/10/24 Qty/Days Supply: 06/23 Rx Expiration Date: 11/09/25 Refills Remainin Indication: FOR BOWEL EMPTYING INPT METOPROLOL TARTRATE 25MG TAB (Status=Active) 25MG BY MOUTH TWICE A DAY Indication: FOR HIGH BLOOD PRESSURE OUTPT METOPROLOL TARTRATE 50MG TAB (Status = Active) TAKE ONE-HALF TABLET BY MOUTH TWICE A DAY FOR HIGH BLOOD PRESSURE TAKE WITH OR IMMEDIATELY FOLLOWING FOOD. Rx# [id number] Last Released: Qt Supply: Rx Expiration Date: 01/19/26 Refills Remainin Indication: FOR HIGH BLOOD PRESSURE CLIN MORPHINE SO4 2MG/ML INJ 1ML (Status=) 2MG/1ML IVP ONE-TIME STAT (FOR E.R. ADMINISTRATION ONLY) Indication: FOR ACUTE PAIN BCMA ORDER LAST ACTION: 01/18/25 15:44 GIVEN CLIN MORPHINE SO4 2MG/ML INJ 1ML (Status=) 2MG/1ML IVP ONE-TIME STAT (FOR E.R. ADMINISTRATION ONLY) Indication: FOR ACUTE PAIN BCMA ORDER LAST ACTION: 01/18/25 17:33 GIVEN OUTPT NUTRITION SUPL ENSURE PLUS/CAIT LIQUID (Status = Active) TAKE 1 CANFUL BY MOUTH TWICE A DAY FOR NUTRITION/DIETARY SUPPLEMENTATION Rx# [id number] Last Released: 12/11/24 Qty/Days Supply: Rx Expiration Date: 09/30/25 Refills Remainin Indication: FOR NUTRITION/DIETARY SUPPLEMENTATION OUTPT OLODATEROL/TIOTROP 2.5MCG/ACTUAT 60D INH (Status = Active) INHALE 2 PUFFS BY ORAL INHALATION ONCE A DAY ADMINISTER AT SAME TIME EACH DAY Rx# [id number] Last Released: 12/25/24 Qty/Days Supply: Rx Expiration Date: 03/23/25 Refills Remainin Indication: FOR COPD INPT OLODATEROL/TIOTROP 2.5MCG/ACTUAT 60D INH (Status=Active) 2 PUFFS ORAL INHL QDAILY sent 01/18 Indication: FOR COPD INPT OMEPRAZOLE 40MG EC CAP (Status=Active) 40MG BY MOUTH QAMAC Indication: FOR GASTROESOPHAGEAL REFLUX DISEASE CLIN ONDANSETRON HCL 2MG/ML INJ,SOLN (Status=) 4MG/2ML IVP ONE-TIME STAT (FOR E.R. ADMINISTRATION ONLY) Indication: FOR NAUSEA/VOMITING BCMA ORDER LAST ACTION: 01/18/25 15:44 GIVEN INPT CREON 36,000UNIT EC CAP (Status=Active) 2 CAPSULES BY MOUTH THREE TIMES A DAY BEFORE MEAL(S) Indication: FOR PANCREATIC INSUFFICIENCY OUTPT PANTOPRAZOLE NA 40MG EC TAB (Status = Discontinued) TAKE ONE TABLET BY MOUTH EVERY MORNING BEFORE A MEAL . TAKE 30 MINUTES BEFORE MEAL(S) Rx# [id number] Last Released: 06/16/24 Qty/Days Supply: 90 Rx Expiration Date: 02/08/25 Refills Remainin Indication: LUQ PAIN OUTPT PANTOPRAZOLE NA 40MG EC TAB (Status = Discontinued) TAKE ONE TABLET BY MOUTH EVERY MORNING BEFORE A MEAL . TAKE 30 MINUTES BEFORE MEAL(S) Rx# [id number] Last Released: 11/09/24 Qty/Days Supply: Rx Expiration Date: 11/09/25 Refills Remainin Indication: LUQ PAIN OUTPT PANTOPRAZOLE NA 40MG EC TAB (Status = Active) TAKE ONE TABLET BY MOUTH EVERY MORNING 30 MINUTES BEFORE ONE MEAL Rx# [id number] Last Released: 01/03/25 Qty/Days Supply: 90 Rx Expiration Date: 02/06/25 Refills Remainin Indication: LUQ PAIN OUTPT RIFAXIMIN 550MG TAB (Status = Active) TAKE ONE TABLET BY MOUTH TWICE A DAY FOR HEPATIC ENCEPHALOPATHY Rx# [id number] Last Released: 01/17/25 Qty/Days Supply: 6030 Rx Expiration Date: 12/13/25 Refills Remainin Indication: FOR HEPATIC ENCEPHALOPATHY INPT RIFAXIMIN 550MG TAB (Status=Active) 550MG BY MOUTH TWICE A DAY Indication: FOR HEPATIC ENCEPHALOPATHY Non-VA SENNOSIDES 8.6MG TAB TAKE ONE TABLET BY MOUTH ONCE A DAY NEEDED OUTPT SIMETHICONE 80MG CHEW TAB (Status = ) CHEW AND SWALLOW FOUR TABLETS BY MOUTH DIRECTED FOR TWO DOSES BEFORE GI PROCEDURE Rx# [id number] Last Released: 11/13/24 Qty/Days Supply: 01/21 Rx Expiration Date: 12/08/24 Refills Remainin Indication: FOR GAS DISCOMFORT OUTPT TERIPARATIDE 250MCG/ML(560MCG)2.24ML PEN (Status = Discontinued) INJECT 20MCG/0.08ML UNDER THE SKIN ONCE A DAY FOR OSTEOPOROSIS (USE WITH NEEDLE,PEN 31G,5/16IN - SEPARATE RX) Rx# [id number] Last Released: 10/03/24 Qty/Days Supply: 07/11 Rx Expiration Date: 08/16/25 Refills Remainin Indication: FOR OSTEOPOROSIS OUTPT TERIPARATIDE 250MCG/ML(560MCG)2.24ML PEN (Status = Discontinued) INJECT 20MCG/0.08ML UNDER THE SKIN ONCE A DAY FOR OSTEOPOROSIS (USE WITH NEEDLE,PEN 31G,5/16IN - SEPARATE RX) Rx# [id number] Last Released: 12/04/24 Qty/Days Supply: 07/11 Rx Expiration Date: 10/24/25 Refills Remainin Indication: FOR OSTEOPOROSIS OUTPT TERIPARATIDE 250MCG/ML(560MCG)2.24ML PEN (Status = Active) INJECT 20MCG/0.08ML UNDER THE SKIN ONCE A DAY FOR OSTEOPOROSIS (USE WITH NEEDLE,PEN 31G,5/16IN - SEPARATE RX) Rx# [id number] Last Released: 01/08/25 Qty/Days Supply: 07/11 Rx Expiration Date: 01/03/26 Refills Remainin Indication: FOR OSTEOPOROSIS SUPPLIES OUTPT ALCOHOL PREP PAD (Status = ) USE/APPLY PAD TO AFFECTED AREA(S) ONCE A DAY NEEDED FOR WOUND CARE Rx# [id number] Last Released: 07/19/24 Qty/Days Supply: 200/90 Rx Expiration Date: 11/01/24 Refills Remainin Indication: FOR WOUND CARE OUTPT DEPEND UNDERWEAR,MAXIMUM,MEN LARGE (Status = Active) USE 1 DIAPER TO AFFECTED AREA(S) 5 TIMES A DAY NEEDED FOR INCONTINENCE Rx# [id number] Last Released: 11/26/24 Qty/Days Supply: 170/30 Rx Expiration Date: 11/25/25 Refills Remainin Indication: FOR INCONTINENCE OUTPT NEEDLE,PEN 31G,8MM (Status = ) USE 1 NEEDLE UNDER THE SKIN ONCE A DAY USE WITH TERIPARATIDE PEN Rx# [id number] Last Released: 07/19/24 Qty/Days Supply: 100/90 Rx Expiration Date: 11/01/24 Refills Remainin Indication: FOR INJECTION ========= MEDICATION REVIEW ========= 4. Patient/Family/Caregiver report TAKING WRITTEN all other medications ====== GENERAL INFORMATION ====== Admission information given by: Patient Is there a legal guardian/conservator? No Preferred language for discussing healthcare: Romanian Preferred mode of communication: Verbal Items at Bedside: None Visual Aids: Standard Glasses Mobility device: cane, prosthetic ======= INFECTIOUS DISEASE RISK SCREEN ======= Travel Screen: Have you traveled within the [place] within the last 21 days? No Have you traveled outside the [place] within the last 21 days? No Within the last 14 days, have you had: No known exposure Other Exposure to Infectious Disease: No known exposure Patient reported the following symptoms: Abdominal Pain (Stomach) History of Multiple Drug Resistant Organism (MDRO): No Methicillin-resistant Staphylococcus aureus (MRSA) Swabbing: Informed verbal consent obtained Education provided ======= NUTRITION SCREENING ======= Malnutrition Screening Weight (Previous 6 months): Measurement DT WEIGHT LB(KG)[BMI] 01/18/2025 09:19 185(83.91)[26] Lost weight recently without trying: No (0 points) Have you been eating poorly because of decreased appetite? No (0 points) Total Score: 0 Other Nutrition Screening Questions: The patient does not report any concerns with their teeth that would make it difficult to eat. The patient does not report overeating to the point of feeling sick or making themselves vomit. The patient reports gaining 10 lbs.(4.5 kgs) or more in the past 3 months without trying. Comment: fluid- 20 lbs per pt The patient denies having any food allergies, intolerance, special dietary needs, or ethnic, cultural or caodaism preferences that would affect their dietary needs. Food Insecurity Screening Within the past 12 months, you worried whether your food would run out before you got money to buy more. Never true Within the past 12 months, the food you bought just did not last you and you did not have the money to get more. Never true Food Insecurity Disposition: ====== RISK SCREENINGS ====== Alcohol Screen: Screen to be completed by: Nurse: SCREEN FOR ALCOHOL (AUDIT-C) An alcohol screening [...] required due to responses to other questions. *Does the patient consume alcohol? No Tobacco Use: Former - tobacco user Do you currently or have you ever used alternative nicotine products? No Substance Use Assessment: *Do you use any recreational drugs or narcotics (prescription or non-prescription)? No ======= RISK OF WANDERING ======= The patient does not have a history of wandering. The patient does not have a history of elopement. The patient is not expressing a desire to leave. ===== SUICIDE SCREEN ===== Result of C-SSRS screener done was NEGATIVE. C-SSRS Screen is Negative ====== EXPOSURE TO VIOLENCE AND ABUSE PRE-SCREEN ====== Are you worried for your safety, that you will be hurt or harmed? No Has anyone tried to force you to sign papers or use your money against your will? No ====== POST TRAUMATIC STRESS DISORDER CARE CONSIDERATIONS ====== To minimize a startle response, what is your preference on how best to awaken you? No preference ======= REPRODUCTIVE & SEXUAL HEALTH ======= Do you have any sexual or reproductive concerns you would like your healthcare team to be aware of? No ====== ADVANCE DIRECTIVE ====== Notification of Rights Related to Advance Directives: Written notification provided. *The patient wishes to receive information about or assistance with Advance Care Planning and/or Advance Directive: No ===== SPIRITUALITY ===== Are there caodaism practices or spiritual concerns you want the furniture dipper, your provider, and other health care team members to know? No ====== ANTICIPATED DISCHARGE NEEDS ====== Where do you live? Other: Comment: assisted living Method of transportation upon discharge: Private Vehicle: Are there any anticipated barriers to discharge? No ===== EDUCATIONAL NEEDS/LEARNING STYLE ===== Barriers to learning: None evident Patient learning style preferences: Verbal explanation ====== VISITOR INFORMATION ====== Will you have a primary support person while in the hospital? No Patient's Visitor Restriction preferences: No Privacy Review: No passcode provided due to opt out ======== ZABALA FALL SCALE & TIPS PROGRAM ======== Zabala Fall Scale: The Zabala Fall scale was performed and score was 85. This is indicative of high risk for falls. History of falling: immediate or within 3 months? Yes Secondary diagnosis: Yes Ambulatory aid: Crutches/cane(s)/walker Intravenous therapy/Heparin lock: Yes Gait/Transferring: Weakness Mental Status: Oriented to own ability/knows own limitations Fall Tailoring Interventions for Patient Safety (TIPS) Fall TIPS initiated with patient: Yes Interventions: Communicate recent fall or risk of harm Walking Aids: Cane Assistance out of bed: Call for assistance before getting out of bed ======= ASPIRATION RISK ASSESSMENT AND SWALLOW SCREEN ======= Aspiration Risk(s): Screening complete. No aspiration risk identified. Bedside Swallow Screen not indicated. ======== PAIN ASSESSMENT ======== Patient's acceptable pain goal: 7 Focus of attention, prevents doing daily activities Are you currently experiencing pain? Yes - DVPRS scale used to assess Location: [facility] [employer] [facility] [employer] Pain Rating Scale (DVPRS): 7 Focus of attention, prevents doing daily activities Pain Score: 7 /zachary/ RAJ PEARSON RN REGISTERED NURSE Signed: 01/18/2025 21:26 RAJ PARTIDA [facility] Jan 18, 2025 08:00 PM NURSING NOTE: LOCAL TITLE: DAFNE PERSONAL EFFECTS STL STANDARD TITLE: NURSING NOTE DATE OF NOTE: JAN 18, 2025@20:00 ENTRY DATE: JAN 18, 2025@21:09:22 AUTHOR: RAJ PARTIDA EXP COSIGNER: URGENCY: STATUS: COMPLETED PERSONAL EFFECTS Hazardous Check: Advised of prohibited hazardous items, Denies hazardous items, No hazardous items observed Prosthetic Check: Glasses, Cane, Artifical Limbs Personal Items: Patient/Family advised that [facility] not responsible for loss of any personal effects or valuables., Patient effects placed in tamper evident bag and sealed in patients presence., Patient/Family advised of locker availability., Patient chooses to keep belongings at bedside., Patient present during collection of personal effects. Patient Valuables Observed: X2 rings, glasses, cane, prosthetic leg, shoes, socks, shirt,depends,jeansbelt,fischer ts, back brace,belt,cell phone /zachary/ RAJ PEARSON RN REGISTERED NURSE Signed: 01/18/2025 21:11 RAJ PARTIDA [facility] Jan 18, 2025 07:42 PM ADMINISTRATIVE NOTE: LOCAL TITLE: ADMINISTRATIVE STL STANDARD TITLE: ADMINISTRATIVE NOTE DATE OF NOTE: JAN 18, 2025@19:42 ENTRY DATE: JAN 18, 2025@19:42:10 AUTHOR: EDDIE BONE EXP COSIGNER: URGENCY: STATUS: COMPLETED SPOKE WITH DR BAINS FROM [facility]. ADV PATIENT ARRIVED TO FLOOR /es/ EDDIE BONE ADVANCED LEAK PATCHER Signed: 01/18/2025 19:42 EDDIE BONE [facility]
--- OUTSIDE RECORDS SUMMARY | 2025-01-19 05:00 | XMS_ITS | Encounter Summary ---
Author Name [facility] Organization [facility] Address [address] [place] [address] Care Team Providers Care Drum Drier Operator Name Role Phone TRUMAN GONZALEZ Primary [...] section includes the information on record at ID for the Encounter. 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 Date/Time Primary/Secondary Diagnosis Diagnosis Name Provider Source Jan 19, 2025 11:26 AM PRIMARY Spiritual or pentecostalism counseling ILDEFONSO BENAVIDES [facility] Plan of Treatment: Future Appointments (+ 6 months) and Future Tests (+/- 45 days) The Plan of Treatment section includes future care activities for the patient from all ID treatmentfacilities. This section includes future appointments and future orders which are active, pending or scheduled. Future Appointments This section includes appointments that were scheduled to occur 6 months from the date of the Encounter, up to a maximum of 20 appointments. The data comes from all [facility]. Appointment Date/Time Appointment Type Appointme nt Facility Name Jan 22, 2025 03:30 PM AMBULATORY - MEDICINE [facility] Jan 26, 2025 11:00 AM AMBULATORY - NONE . MARTINAI R [facility] Jan 30, 2025 03:58 AM AMBULATORY - MEDICINE [facility] Feb 01, 2025 03:30 PM AMBULATORY - MEDICINE [facility] Mar 01, 2025 01:00 PM AMBULATORY - REHAB MEDICIN E [facility] Mar 14, 2025 10:15 AM AMBULATORY - MEDICINE [facility] May 03, 2025 10:45 AM AMBULATORY - SURGERY [facility] May 03, 2025 01:00 PM AMBULATORY - SURGERY [facility] Active, Pending, and Scheduled Orders This section includes a listing of several types of active, pending, and scheduled orders, including clinic medications orders, diagnostic test orders, procedure orders and consult orders; where the start date of the order is 45 days before the date of the Encounter or 45 days after the date of theEncounter. The data comes from all [facility]. Test Date/Time Test Type Test Details Facility Name Jan 19, 2025 11:34 AM Consult Order OT OUTPATI ENT CONSULT ST[facility] Cons [facility] Lab Results: +/- 30 days of the encounter This section includes the Chemistry and Hematology Lab Results on record with ID for the patient. Radiology Reports and Pathology Reports are provided separately, in subsequent sections. Lab Results This section contains the Chemistry/Hematology Results that were resulted 30 days before or 30 daysafter the date of the Encounter. Date/Time Source Result Type Result - Unit Interpretation Reference Range Specimen Type Comment Jan 31, 2025 02:14 PM [facility] MAGNESIUM PLASMA Specimen Type: PLASMA Comment: No hemolysis noted. Ordering Provider: JOHNATHAN STEEN Report Released Date/Time: Jan 30, 2025 07:25 AM Reporting Lab: [facility] [address] [facility] [place] [address] Performing Lab: [address] [address] MAGNESIUM 2.0 mg/dL 1.6-2.6 Jan 31, 2025 02:14 PM [facility] COMPREHENSIVE METABOLIC PANEL PLASMA Specimen Type: PLASMA Comment: No hemolysis noted. Ordering Provider: JOHNATHAN STEEN Report Released Date/Time: Jan 30, 2025 07:25 AM Reporting Lab: [address] [address] Performing Lab: [address] [address] CREATININE 1.07 mg/dL 0.7-1.3 UREA NITROGEN 24.7 [...] 31, 2025 02:14 PM [facility] CBC BLOOD Specimen Type: BLOOD No comment entered. Ordering Provider: JOHNATHAN STEEN Report Released Date/Time: Jan 30, 2025 07:25 AM Reporting Lab: [address] [address] Performing Lab: [address] [address] WBC 7.5 10*3/uL 3.6-11.2 RBC 4.32 10*6/uL [...] 0.00-0. 20 Jan 31, 2025 02:14 PM [facility] PHOSPHOROUS PLASMA Specimen Type: PLASM A Comment: No hemolysis noted. Ordering Provider: JOHNATHAN STEEN Report Released Date/Time: Jan 30, 2025 07:25 AM Reporting Lab: [address] [address] Performing Lab: [address] [address] PHOSPHOROUS 2.6 mg/dL 2.3-4.7 Jan 30, 2025 04:35 PM [facility] CELL COUNT BODY FLUIDS (STL) PERITONEAL FL. Specimen T ype: PERITONEAL FL. No comment entered. Ordering Provider: BALTA BARR Report Released Date/Time: Jan 30, 2025 03:49 PM Reporting Lab: [address] [address] Performing Lab: [address] [address] MESOTHELIAL 12 GROSS APPEARANCE YELLOW/HAZY FL SEGS 6 FL LYMPHS 48 FL MACROPHAGES 34 FL NUCLEATED CELLS 97 /uL 0-500 RBC FL 561 /uL Jan 30, 2025 04:05 PM [facility] MRSA SURVL NARES DNA NARES Specimen [...] Jan 30, 2025 07:25 AM Reporting Lab: [facility] [address] [facility] [address] Performing Lab: [facility] [address] [facility] [address] MRSA SURVL NARES DNA Negative Negative Jan 30, 2025 02:22 PM [facility] MAGNESIUM PLASMA Specimen Type: PLASM A Comment: No hemolysis noted. Ordering Provider: JOHNATHAN STEEN Report Released Date/Time: Jan 30, 2025 07:25 AM Reporting Lab: [facility] [address] [facility] [address] Performing Lab: [facility] [address] [facility] [address] MAGNESIUM 2.0 mg/dL 1.6-2.6 Jan 30, 2025 02:22 PM [facility] PHOSPHOROUS PLASMA Specimen Type: PLASM A Comment: No hemolysis noted. Ordering Provider: JOHNATHAN STEEN Report Released Date/Time: Jan 30, 2025 07:25 AM Reporting Lab: [facility] [address] [facility] [address] Performing Lab: [facility] [address] [facility] [address] PHOSPHOROUS 2.8 mg/dL 2.3-4.7 Jan 30, 2025 02:22 PM [facility] CBC BLOOD Specimen Type: BLOOD No comment entered. Ordering Provider: JOHNATHAN STEEN Report Released Date/Time: Jan 30, 2025 07:25 AM Reporting Lab: [address] [address] Performing Lab: [address] [address] WBC 5.3 10*3/uL 3.6-11.2 RBC 3.77 10*6/uL [...] 10*3/uL 2.10-8.00 Jan 30, 2025 02:22 PM [facility] COMPREHENSIVE METABOLIC PANEL PLASMA Specimen Type: PLASMA Comment: No hemolysis noted. Ordering Provider: JOHNATHAN STEEN Report Released Date/Time: Jan 30, 2025 07:25 AM Reporting Lab: [address] [address] Performing Lab: [address] [address] CREATININE 1.17 mg/dL 0.7-1.3 UREA NITROGEN 25.9 [...] 64.2 >60 Jan 30, 2025 02:22 PM [facility] PT/INR NEW (STL-MA) PLASMA Specimen Type: PLAS MA No comment entered. Ordering Provider: JOHNATHAN STEEN Report Released Date/Time: Jan 30, 2025 07:26 AM Reporting Lab: [address] [address] Performing Lab: [facility] [address] [facility] [address] PROTIME 14.6 s H 9.4-12.5 INR VALUE 1.3 {INR} Jan 30, 2025 02:22 PM [facility] LIPASE PLASMA Specimen Type: PLASM A Comment: No hemolysis noted. Ordering Provider: JOHNATHAN STEEN Report Released Date/Time: Jan 30, 2025 07:26 AM Reporting Lab: [facility] [address] [facility] [address] Performing Lab: [facility] [address] [facility] [address] LIPASE 60 U/L 8-78 Jan 30, 2025 04:00 AM [facility] COMPREHENSIVE METABOLIC PANEL PLASMA Specimen Type: PLASMA Comment: No hemolysis noted. Ordering Provider: GI ROBERTS Report Released Date/Time: Jan 30, 2025 04:06 AM Reporting Lab: [address] [address] Performing Lab: [facility] [address] [place] [address] CREATININE 1.25 mg/dL 0.7-1.3 UREA NITROGEN 26.9 [...] 59.3 >60 Jan 30, 2025 04:00 AM [facility] CBC BLOOD Specimen Type: BLOOD No comment entered. Ordering Provider: GI ROBERTS Report Released Date/Time: Jan 30, 2025 04:06 AM Reporting Lab: [facility] [address] [facility] [address] Performing Lab: [facility] [address] [facility] [address] WBC 6.4 10*3/uL 3.6-11.2 RBC 3.99 10*6/uL [...] 3.4 1.0-7.0 Jan 19, 2025 08:15 PM [facility] COMPREHENSIVE METABOLIC PANEL PLASMA Specimen Type: PLASMA Comment: No hemolysis noted. Ordering Provider: BALTA BARR Report Released Date/Time: Jan 18, 2025 07:27 PM Reporting Lab: [facility] [address] [facility] [address] Performing Lab: [address] [address] CREATININE 1.08 mg/dL 0.7-1.3 UREA NITROGEN 22.3 [...] 19, 2025 08:15 PM [facility] CBC BLOOD Specimen Type: BLOOD No comment entered. Ordering Provider: BALTA BARR Report Released Date/Time: Jan 18, 2025 07:27 PM Reporting Lab: [place] [id number] [facility] [address] Performing Lab: [address] [address] WBC 5.8 10*3/uL 3.6-11.2 RBC 3.87 10*6/uL [...] NRBC% 0 Jan 19, 2025 11:12 AM [facility] CELL COUNT BODY FLUIDS (STL) PERITONEAL FL. Specimen T ype: PERITONEAL FL. No comment entered. Ordering Provider: ELIJAH LOZANO Report Released Date/Time: Jan 17, 2025 02:19 PM Reporting Lab: [address] [address] Performing Lab: [address] [address] MESOTHELIAL 2 GROSS APPEARANCE yellow/hazy FL SEGS 28 FL LYMPHS 34 FL MACROPHAGES 15 FL MONOCYTES 21 FL NUCLEATED CELLS 195 /uL 0-500 RBC FL 329 /uL Jan 18, 2025 08:30 PM [facility] MRSA SURVL NARES DNA NARES Specimen [...] Jan 18, 2025 07:27 PM Reporting Lab: [address] [address] Performing Lab: [address] [address] MRSA SURVL NARES DNA Negative Negative Jan 18, 2025 08:11 PM [facility] COMPREHENSIVE METABOLIC PANEL PLASMA Specimen Type: PLASMA Comment: No hemolysis noted. Ordering Provider: BALTA BARR Report Released Date/Time: Jan 18, 2025 07:27 PM Reporting Lab: [address] [address] Performing Lab: [address] [address] CREATININE 0.98 mg/dL 0.7-1.3 UREA NITROGEN 19.8 [...] 18, 2025 08:11 PM [facility] CBC BLOOD Specimen Type: BLOOD No comment entered. Ordering Provider: BALTA BARR Report Released Date/Time: Jan 18, 2025 07:27 PM Reporting Lab: [address] [address] Performing Lab: [address] [address] WBC 5.1 10*3/uL 3.6-11.2 RBC 4.14 10*6/uL [...] 3.2 1.0-7.0 Jan 18, 2025 02:25 PM [facility] AMMONIA (STL-MA) PLASMA Specimen Type: PLASM A No comment entered. Ordering Provider: BRET PRINCE Report Released Date/Time: Jan 18, 2025 02:17 PM Reporting Lab: [facility] [address] [facility] [address] Performing Lab: [facility] [address] [facility] [address] AMMONIA (STL-MA) 35 umol/L 13.5-35 Jan 18, 2025 11:50 AM [facility] LIPASE PLASMA Specimen Type: PLASM A Comment: Aspartate Transaminase result may show positive bias due to hemolysis. K result canceled due to hemolysis. Specimen moderately hemolyzed. potassium Cancelled due to moderate hemolysis. Notified yvrose caro rn @1324 01/18/25 reg Ordering Provider: PRESTON JONES Report Released Date/Time: Jan 18, 2025 11:49 AM Reporting Lab: [facility] [address] [facility] [address] Performing Lab: [facility] [address] [facility] [address] LIPASE 31 U/L 8-78 Jan 18, 2025 11:50 AM [facility] CBC BLOOD Specimen Type: BLOOD No comment entered. Ordering Provider: PRESTON JONES Report Released Date/Time: Jan 18, 2025 11:49 AM Reporting Lab: [facility] [address] [facility] [address] Performing Lab: [facility] [address] [facility] [address] WBC 6.8 10*3/uL 3.6-11.2 RBC 4.06 10*6/uL [...] 10*3/uL 2.10-8.00 Jan 18, 2025 11:50 AM [facility] COMPREHENSIVE METABOLIC PANEL PLASMA Specimen Type: PLASMA Comment: Aspartate Transaminase result may show positive bias due to hemolysis. K result canceled due to hemolysis. Specimen moderately hemolyzed. potassium Cancelled due to moderate hemolysis. Notified yvrose caro rn @[id number] 01/18/25 reg Ordering Provider: PRESTON JONES Report Released Date/Time: Jan 18, 2025 11:49 AM Reporting Lab: [facility] [address] [facility] [address] Performing Lab: [facility] [address] [facility] [address] CREATININE 0.99 mg/dL 0.7-1.3 UREA NITROGEN 21.3 [...] 78.5 >60 Jan 18, 2025 11:50 AM [facility] PT/INR NEW (STL-MA) PLASMA Specimen Type: PLAS MA No comment entered. Ordering Provider: PRESTON JONES Report Released Date/Time: Jan 18, 2025 11:49 AM Reporting Lab: [facility] [address] [facility] [address] Performing Lab: [facility] [address] [facility] [address] PROTIME 14.2 s H 9.4-12.5 INR VALUE 1.3 {INR} Jan 18, 2025 11:50 AM [facility] BRAIN NATRIURETIC PEPTIDE PLASMA Specimen Type : PLASMA No comment entered. Ordering Provider: PRESTON JONES Report Released Date/Time: Jan 18, 2025 11:49 AM Reporting Lab: [facility] [address] [facility] [address] Performing Lab: [facility] [address] [facility] [address] BRAIN NATRIURETIC PEPTIDE 366.8 pg/mL H 0- 100 Jan 18, 2025 11:50 AM [facility] TROPONIN I (STL) PLASMA Specimen Type: PLASM A Comment: Aspartate Transaminase result may show positive bias due to hemolysis. K result canceled due to hemolysis. Specimen moderately hemolyzed. Ordering Provider: PRESTON JONES Report Released Date/Time: Jan 18, 2025 11:49 AM Reporting Lab: [facility] [address] [facility] [address] Performing Lab: [facility] [address] [facility] [address] TROPONIN I (STL) 0.032 ng/mL 0-0.033 Vital Signs: All taken on the encounter date This section contains inpatient and outpatient Vital Signs collected on the date of the Encounter. Date/Time Temperature Pulse Blood Pressure Respiratory Rate SP02 Pain Height Weight Body Mass Index Source Jan 19, 2025 09:46 PM 98.0 F 77 /min 119/51 mm[Hg] 18 /min 97 % 8 [facility] Jan 19, 2025 06:35 PM 8 [facility] Jan 19, 2025 06:07 PM 98 F 72 /min 85/46 mm[Hg] 18 /min 96 % 0 [facility] Jan 19, 2025 01:50 PM 97.8 F 81 /min 110/59 mm[Hg] 20 /min 91 % 0 [facility] Jan 19, 2025 12:33 PM 7 [facility] Social History: Smoking Status (Most current) and Tobacco Use (All prior to encounter date) This section includes the most current, and the historical, smoking and tobacco- related health factors from the ID facility where the Encounter took place. Current Smoking Status This section includes the most current smoking, or tobacco-related health factor, from the ID facility where the Encounter took place. Date/Time Current Smoking Status Comment Facil arlyn Nov 12, 2020 05:09 PM ORYX ADMIT TOBACCO SCREEN NO [facility] Tobacco Use History This section includes a history of the smoking, or tobacco-related health factors, that were collected on or before the date of the Encounter. The data comes from the ID facility where the Encounter took place. Date/Time Smoking Status/Tobacco Use Comment F acility November 08, 2018 11:16 AM ID-TOBACCO FORMER USER [facility] November 08, 2018 11:16 AM VA-TOBACCO QUIT < 1 YEAR [facility] Jul 30, 2016 03:10 PM QUIT TOBACCO IN TH E LAST 12 MONTHS [facility] November 10, 2011 10:27 PM QUIT TOBACCO >12 M O & <7 YRS AGO [facility] Dec 28, 2005 08:38 AM CURRENT NON-TOBACC O USER-HX OF USE [facility] Dec 28, 2005 08:38 AM TOBACCO TERMINATION STAGE [facility] Jun 23, 2005 12:42 PM CURRENT TOBACCO USER [facility] Jun 23, 2005 12:42 PM SMOKER 1-2 PACKS [facility] Advance Directives: All historical and current Section Date Range: From patient's date of to the date document was created. This section includes ALL of a patient's completed or amended ID Advance and Rescinded Directives. The entries below indicate that a directive exists for the patient, but an actual copy is not included with this document. The data comes from all ID facilities. Date Advance Directives Provider Source Nov 17, 2022 ADVANCE DIRECTIVE MOISES ADHIKARI [facility] Jun 12, 2020 STATE-AUTHORIZED POR TABLE ORDERS ANNE CHATTERJEE [facility] October 21, 2018 RESCINDED ADVANCE DIRECTIVE SHERIF BETANCOURT [facility] November 12, 2011 ADVANCE DIRECTIVE DISCUSSION LIA JUAREZ [facility] Radiology Reports: +/- 30 days of [...] the Encounter. The data comes from all ID treatment facilities. Date/Time Radiology Report Provider Source Jan 19, 2025 10:59 AM ABDOMINAL PARACENT ESIS WITH IMAGE GUIDANCE: NEISHA LUND [id number] -1945 M Exm Date: JAN 19, 2025@10:59 Req Phys: GHANSHYAM HELLER Loc: 5-C PCU-[facility]/01-19-2025@17:23 Img Loc: [facility]/INTERVENTIONAL Service: [id number] SERVICE [address] [address] (Case [id number] COMPLETE) ABDOMINAL PARACENTESIS WITH IMAGE(ANI Detailed) CPT:02976 Reason for Study: 79 M with ascites and abdominal discomfort Clinical History: Report Status: Verified Date Reported: JAN 19, 2025 Date Verified: JAN 19, 2025 Basket Patcher E-Sig:/ES/Ghanshyam Heller MD Report: CASE # [id number] HISTORY: 79 M with ESLD, ascites, abdominal [...] was given with lidocaine 1%. A 5 Cymro One-Step coaxial needle system was advanced into [...] Interpreting Staff: Ghanshyam Heller MD, Interventional Radiologist (Basket Patcher) /GHANSHYAM [facility] Jan 18, 2025 02:[address] ABD PEL W/CONT & 3D: NEISHA LUND [id number] -1945 M Exm Date: JAN 18, 2025@14:58 Req Phys: BRET PRINCE Loc: [facility]-EMERGENCY DEPT 2ND SHIFT (R Img Loc: [facility]-CT IMAGING [facility] Service: [facility], [address] [address] (Case [id number] COMPLETE) CT ABDOMEN AND PELVIS W/CONTRAST (CT Detailed) CPT:97047 Contrast Media : Non-ionic Iodinated Reason for [...] 18, 2025 Date Verified: JAN 18, 2025 Basket Patcher E-Sig:/ES/Laila Deluca MD Report: EXAMINATION: CT ABDOMEN [...] posterior rib. Dictated by Britany Mathias M.D. (manager of radiology) I, Laila Deluca, have reviewed the images and report and concur with these findings. Primary Interpreting Staff: Laila Deluca MD, Radiologist (Basket Patcher) Primary Interpreting Resident: BRITANY MATHIAS, Resident /LAILA GARCIA [facility] Jan 18, 2025 12:01 PM CHEST PORTABLE: NEISHA LUND [id number] -1945 M Exm Date: JAN 18, 2025@12:01 Req Phys: ROBERTPRESTON Pat Loc: -EMERGENCY DEPT 2ND SHIFT (R Img Loc: -MAIN RADIOLOGY SUITE Service: [facility], [address] [place] [address] (Case [id number] COMPLETE) CHEST PORTABLE (RAD Detailed) CPT:20094 Proc Modifiers : Portable Reason for Study: shortness of breath Clinical History: Report Status: Verified Date Reported: JAN 18, 2025 Date Verified: JAN 18, 2025 Basket Patcher E-Sig:/ES/Laila Deluca MD Report: CHEST PORTABLE CASE #: [id number] DATE:01/18/2025 12:31 PM CLINICAL HISTORY:shortness of breath COMPARISON: 09/27/2023 TECHNIQUE: CHEST PORTABLE Impression: FINDINGS/IMPRESSION: Lordotic portable chest radiograph reveals some right midlung scarring which is slightly more conspicuous than on the preceding study. No focal pneumonia or pleural effusion. Heart size within normal limits. No CHF. No fracture. No pneumothorax. Primary Interpreting Staff: Laila Deluca MD, Radiologist (Basket Patcher) /LAILA LANCE [facility] Pathology Reports: +/- 30 days of [...] the Encounter. The data comes from all [facility] facilities. Date/Time Pathology Report Provider Source Jan 22, 2025 02:18 PM LR CYTOPATHOLOGY R EPORT: LOCAL TITLE: LR CYTOPATHOLOGY REPORT STANDARD TITLE: PATHOLOGY PROCEDURE NOTE DATE OF NOTE: JAN 22, 2025@14:18:16 ENTRY DATE: JAN 22, 2025@14:18:16 AUTHOR: LUAN ARANGO COSIGNER: URGENCY: STATUS: COMPLETED $APHDR - - [...] - - - - $TEXT Submitted by: [employer] Date obtained: Jan 19, 2025 - - [...] CLEAR YELLOW UNFIXED FLUID RECEIVED FOR PATIENT: ASHELYNEISHA [id number]. 2 PAP STAINED CYTOSPINS AND ONE CELL [...] 2025@14:18 Performing Laboratory: Cytology Report [facility] CLIA# [id number] [address] [place] [phone] $FTR - - - - - - [...] - - NEISHA LUND STANDARD FORM 515 ID:[id number] SEX:M :1945 AGE: 79 LOC:APFEE PCP: Rigo Florian /rocio ARANGO MD, PhD STAFF PATHOLOGIST Signed: 01/22/2025 14:18 LUAN ARANGO [facility] Encounter Notes: All associated encounter notes This section contains the clinical notes associated to the Encounter. Date/Time Encounter Note(s) Provider Source Jan 19, 2025 10:00 AM PASTORAL CARE INIT IAL EVALUATION NOTE: LOCAL TITLE: SPIRITUAL ASSESSMENT [facility] STANDARD TITLE: PASTORAL CARE INITIAL EVALUATION NOTE DATE OF NOTE: JAN 19, 2025@10:00 ENTRY DATE: JAN 19, 2025@11:12:52 AUTHOR: ILDEFONSO BENAVIDES COSIGNER: SUSANA SANTOS URGENCY: STATUS: COMPLETED SPIRITUAL ASSESSMENT (20 min) Permission is granted to the floor cashier by the to: Complete this assessment tool, Receive spiritual care from ID Director Women [employer] / SPIRITUAL PREFERENCE Amish: Additional Comments: shared he grew up worshipping with a [employer] community and is now in an independent living community where they have latter-day services. [place] stated he has not been very active in latter-day since he joined [employer] in 1964 at age 19. [place] shared he has ella in God. PERCEPTION OF GOD / HIGHER POWER loving, kind, merciful, healer, forgiving SPIRITUAL HEALTH Relationship Issues: [place] shared he misses his who in April. 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 shared that their only child near end of and that his is buried with her and has a [place]. [place] shared he has a nephew in [place]. Life event changes/losses in recent past: [place] is a recent and shared he is dealing with fluid on the belly and liver cirrhosis. RELATED FEELINGS, SYMPTOMS, BEHAVIORS Of these common spiritual injuries, those selected below were determined to be the most pertinent to the 's spiritual health and spiritual plan of care: [ ] Anger, resentment [ ] Anxiety/fear [ ] Apathy [ ] Denial [ ] Despair/loss of meaning [ ] Destructive behavior [ ] Diminished coping [ ] Feeling of uselessness/failure [X] Grief/loss [ ] Guilt and/or shame [ ] Reports increased pain [ ] Loneliness [ ] Low self-esteem [ ] Spiritual emptiness [ ] Substance abuse [ ] Withdrawn/isolated ASSESSMENT OF PATIENT'S LIFE CHANGES AND SUPPORT SYSTEMS [place] appears to: be confident of care being given. SPIRITUAL RESOURCES APPEAR: Family: Weak [place] Organization(s): None Director Women encouraged to find a [place] organization that does not drink. Director Women shared that the [facility] [address] in [place] does not drink at meetings. [employer] Prayer, Sacred writings (Bible, Koran, etc.) INTERVENTION Offered / accepted: ministry of presence, supportive listening PASTORAL CARE PLAN Recommend referral to a grief support group and a motorcycle riding group. OUTCOMES expressed appreciation for the visit. appeared more at [facility], experienced support /es/ ILDEFONSO Sterlingin Resident Signed: 01/19/2025 11:26 /es/ SUSANA SANTOS MA, MDIV ENTRY DRIVER OPERATOR Cosigned: 01/22/2025 08:56 ILDEFONSO BENAVIDES [facility]
--- OUTSIDE RECORDS SUMMARY | 2025-01-29 22:58 | XMS_ITS | Encounter Summary ---
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 MAThe OBJECT was NOT found...Contact IRM.PAIN ASSESSMENTThe OBJECT was NOT found...Contact IRM. Measurement DT PAIN 01/30/2025 03:57 10 General: cooperative, well appearing, no acute distress HEENT: atraumatic, symmetric, sclera anicteric, no pharyngeal erythema/exudate Neck: No JVD, no LAD CV: RRR, normal S1/S2, no murmurs Lungs: CTAB, no rales Abd:tender, distended, umbilical hernia and ascites hepatomegaly nml bowel sounds Skin: no rashes or lesions, warm, dry Neuro: A&O x3, follows commands, no focal deficits, CN II-XII grossly in tact Ext: L BKA 2+ pulses, good sensation throughout LABS: WBC 6.4 10*3/uL 3.6 - 11.2 RBC 3.99 L 10*6/uL 4.10 - 5.70 HGB 11.1 L g/dL 13.1 - 16.8 HCT 33.8 L % 38.2 - 48.4 MCV 84.7 fL 80.0 - 100.0 MCH 27.8 pg 27.0 - 34.0 MCHC 32.8 L g/dL 33.0 - 36.0 RDW 16.2 H % 11.8 - 15.1 PLT 126 L 10*3/uL 150 - 400 MPV 10.5 fL 7.5 - 11.2 NEUTROPHILS, AUTO % 69 % LYMPHOCYTES, AUTO % 11 % MONOCYTES, AUTO % 15 % EOSINOPHILS, AUTO % 4 % BASOPHILS, AUTO % 1 % NEUTROPHILS, ABSOLUTE 4.39 10*3/uL 2.10 - 8.00 LYMPHOCYTES, ABSOLUTE 0.69 L 10*3/uL 0.77 - 4.50 MONOCYTES, ABSOLUTE 0.97 H 10*3/uL 0.19 - 0.80 EOSINOPHILS, ABSOLUTE 0.24 10*3/uL 0.00 - 0.60 BASOPHILS, ABSOLUTE 0.04 10*3/uL 0.00 - 0.20 IMMATURE PLT FRACTION 3.4 % 1.0 - 7.0 Collection time: Jan 30, 2025@04:00 Test Name Result Units Range --------- ------ ----- ----- SODIUM 135 L mEq/L 136 - 145 POTASSIUM 3.4 L mEq/L 3.5 - 5 CHLORIDE 105 mEq/L 98 - 107 UREA NITROGEN 26.9 H mg/dL 9.0 - 25.0 CREATININE 1.25 mg/dL 0.7 - 1.3 CALCIUM 8.6 mg/dL 8.4 - 10.4 PROTEIN 6.4 g/dL 6 - 8.6 ALBUMIN 3.2 L g/dL 3.4 - 5 ALKALINE PHOSPHATASE 118 U/L 40 - 150 ALT/SGPT 36 U/L 8 - 40 AST/SGOT 51 H U/L 5 - 34 TOTAL BILIRUBIN 0.8 mg/dL 0.2 - 1.2 CARBON DIOXIDE 19 L mEq/L 22 - 31 GLUCOSE 106 H mg/dL 72 - 99 EGFR (CKD-EPI 2020) 59.3 Ref: >=60 Comments: RADIOLOGY: ECG IMPRESSION: ED COURSE & MEDICAL DECISION MAKING: Nursing notes, medications, vital signs, allergies and pertinent labs & imaging studies reviewed (see chart for details) with lab results reviewed with patient and family/caregivers at bedside and radiology results reviewed with patient and any family/caregivers at bedside. Stable, alert, nontoxic, nonfocal with clinically apparent Clinical information obtained from an independent historian. History obtained from or confirmed by: Discussed with radiology regarding test interpretation imaging:patient and family I performed an independent interpretation of:see notes Patient's care impacted by: ___Medical records Management of the patient was discussed with: _x__Hospitalist 5.45 talk with medicine 1 team patient accepted for admissions for possible ultrasound and paracentesis and pain control patient will need nutritional evaluation noncompliance compliance with fluid and salt restriction ___Consultant ___Behavioral health provider I considered admission/ observation but decided upon discharge due to: hospitalization not required ESCALATOR MECHANIC SERVICE/TIME: MEDICATIONS GIVEN IN ED: [ x ] YES morphine 2 mg [ ] NO DIFFERENTIAL DIAGNOSES CONSIDERED: Liver cirrhosis ascites abdominal pain constipations DECISION to ADMIT / DISCHARGE TIME: SMOKING CESSATION RECOMMENDATION: The patient was strongly advised to consider stopping smoking, advised of risks of smoking and benefits of stopping; and was recommended for referral/abatement options. DISPOSITION CONDITION:[ ] Improved [ x ] Unchanged [ ] Deteriorated CLINICAL IMPRESSION: 1 -abdominal pain advanced liver cirrhosis with ascites required frequent paracentesis last paracentesis was few days ago with 8 L out patient noncompliance with fluid salt restrictions lab is okay will admit patient for pain control and possible pleural centesis and ultrasound abdomen 2 - 3 - DISCHARGE INSTRUCTIONS AND PATIENT-DIRECTED FOLLOW-UP RECOMMENDATIONS: DIET: Salt water restriction ACTIVITY: As tolerated NEW MEDS: per med 1 team MEDICATION RECONCILIATION: CONTINUE ALL PRESCRIBED MEDICATIONS DIRECTED EXCEPT: FOLLOW-UP WITH PRIMARY SANDWICH MAKER/SPECIALIST: routine in 1-2 weeks if not improving, sooner if worse RETURN TO EMERGENCY: if any worries or concerns ADDITIONAL SIGNATURE PCP: [ ] YES [ ] NO [ ] not [...] TAKE 30 ML BY MOUTH EVERY 6 PENDING HOURS NEEDED Indication: FOR CONSTIPATION Active Non-VA Medications Status 1) Non-VA AMITRIPTYLINE [...] BY MOUTH ONCE A DAY ACTIVE NEEDED 27 Total Medications /es/ GI ROBERTS MD Staff Physician, Emergency Department Signed: 01/30/2025 06:55 GI ROBERTS [facility] Jan 30, 2025 03:57 AM EMERGENCY DEPT TRI AGE NOTE: LOCAL TITLE: EMERGENCY DEPARTMENT TRIAGE NOTE STANDARD TITLE: EMERGENCY DEPT TRIAGE NOTE DATE OF NOTE: JAN 30, 2025@03:57 ENTRY DATE: JAN 30, 2025@04:04:04 AUTHOR: BABITA GONZALEZ COSIGNER: URGENCY: STATUS: COMPLETED EMERGENCY DEPARTMENT TRIAGE NOTE Has ADDENDA Emergency Department/Urgent Care Center Triage Patient age:79 Sex in chart: MALE Mode of Arrival: Ambulance Pre-arrival interventions: 20G Pal to the left forearm Mode of Mobility: * Stretcher Chief Complaint: 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 Reports history of Cirrhosis and recently had 8300cc emptied from abdomen through paracentesis. Patient reports pain is the same as before. Reports he has been taking Tylenol at home with no relief of symptoms. No distress noted Level of Consciousness (AVPU): Alert = Appears aware of and responsive to the environment on their own. Follows commands, opens eyes spontaneously, and tracks objects. Vital Signs: Temperature 98.4 F (36.9 C) Pulse 79 Respirations 17 Blood Pressure 129/93 Pulse Oximetry 98 Room Air Pain: DVPRS Scale Location: abdomen [employer] Pain Rating Scale (DVPRS): 10 As bad as it can be, nothing else matters Pain Score: 10 Patient's acceptable pain goal: 1 Hardly notice pain Primary Pain Assessment: Pain Type: Acute Describe Pain (Quality): Pain Interventions: Suicide Screen: [place] Suicide Severity Rating Scale (C-SSRS) screener 1. [...] Microscopic Hematuria 2) Alcoholic cirrhosis (SNOMED CT 493345668) 3) Hernia of abdominal wall 4) Insomnia 5) Amputated below knee 6) Walking disability 7) Depression 8) Obstructive sleep apnea syndrome 9) Gastroesophageal reflux disease 10) Solitary nodule of lung 11) Legal problem 12) Moderate protein-calorie malnutrition (weight for age 60-74% of standard) 13) Anxiety (SCT 34707674) 14) Benign Prostatic Hypertrophy With Outflow Obstruction (SCT 771937409) 15) History of Polyp of Colon (SCT 959229591) 16) Internal hemorrhoids 17) Vitamin D Deficiency (SCT 69173388) 18) Allergic Rhinitis (SCT 14722458) 19) Closed fracture of left acetabulum 20) Narcolepsy 21) AF - Atrial Fibrillation (SCT 66858921) 22) PE - Pulmonary Embolism (SCT 33562007) 23) H/O: surgery 24) Low Back Pain (SCT 969127110) 25) Osteoporosis ([facility] 23097468) 26) Renal Impairment ([facility] 383590355) 27) Mild cognitive impairment 28) COPD - Chronic Obstructive Pulmonary Disease ([facility] 19336476) /zachary/ BABITA GONZALEZ RN REGISTERED NURSE Signed: 01/30/2025 04:09 01/30/2025 ADDENDUM STATUS: COMPLETED 0425: pt placed into room 104-1 and this RN assumes care at this time 0433: this RN introduced herself to this pt and upon assessment found no changes in this pt's condition from the previous assessment done; pt remains on continuous monitoring w/ stable VS and NOD; pt reports understanding his plan of care and denying any questions or needs at this time; pt's call light is within reach and this RN will continue to reassess 0530: pt appears to be resting comfortably w/ NOD; pt remains on continuous monitoring w/ stable VS and his call light within reach; this RN will continue to reassess 0610: Hospitalist is at the bedside assessing and updating this pt on his plan of care 0700: pt report given to SARAH Raymundo and all questions answered; pt is awaiting transport; pt otherwise appears to be resting comfortably w/ NOD; pt remains on continuous monitoring w/ stable VS and his call light within reach; this RN will continue to reassess /es/ ROSEMARIE LEONARD, BSN, RN REGISTERED NURSE Signed: 01/30/2025 07:18 BABITA GONZALEZ [facility]
--- OUTSIDE RECORDS SUMMARY | 2025-01-30 02:23 | XMS_ITS ---
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 umbilical hernia without warmth or erythema Extremities: round 1.5-cm chronic wound on tip of left BKA stump w/o purulence or erythema, trace pitting edema of right leg Neurologic: AOx4, mild cognitive deficit at baseline, no gross focal deficits, spontaneously moving all extremities. Skin: warm, dry FOLLOW-UP: 02/01/2025 15:30 [facility] CLR PACT PHONE [facility] 03/01/2025 13:00 [facility] CONSULT 4 03/14/2025 10:15 [facility] LIVER NON-VA FOLLOW-UP CARE: Not Applicable DISCHARGE MEDICATIONS: Active Outpatient Medications Status 1) ACETAMINOPHEN 500MG TAB TAKE ONE TABLET BY MOUTH FOUR TIMES ACTIVE A DAY NEEDED CAUTION: DO NOT EXCEED 4000MG PER DAY ACETAMINOPHEN (APAP) FROM ALL MEDS. 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 Indication: FOR PANCREATIC INSUFFICIENCY 6) DEPEND UNDERWEAR,MAXIMUM,MEN LARGE USE 1 DIAPER TO AFFECTED ACTIVE AREA(S) 5 TIMES A DAY NEEDED Indication: FOR INCONTINENCE 7) FLUTICASONE PROP 50MCG 120D NASAL INHL INSTILL 1 SPRAY IN ACTIVE NOSTRIL(S) ONCE A DAY (MUST BE USED DIRECTED FOR MINIMUM OF 21 DAYS TO PROVIDE ADEQUATE BENEFITS) Indication: FOR CHRONIC RHINOSINUSITIS 8) FUROSEMIDE 80MG TAB TAKE ONE TABLET BY MOUTH EVERY MORNING ACTIVE Indication: FOR FLUID RETENTION (EDEMA) 9) GABAPENTIN 100MG CAP TAKE ONE CAPSULE BY MOUTH THREE TIMES A ACTIVE DAY Indication: FOR PAIN 10) IPRATROPIUM BR 0.03% NASAL SPRAY USE 2 SPRAYS INTO HOLD NOSTRIL(S) THREE TIMES A DAY Indication: FOR ALLERGIC RHINITIS 11) LACTULOSE 10GM/15ML ORAL SOLN TAKE 30 ML BY MOUTH EVERY 6 ACTIVE (S) HOURS NEEDED Indication: FOR CONSTIPATION 12) MAGNESIUM CITRATE LIQUID TAKE 1 BOTTLE [...] EC TAB TAKE ONE TABLET BY MOUTH TWO ACTIVE (S) TIMES A DAY BEFORE MEALS TAKE 30 MINUTES BEFORE MEAL(S) Indication: LUQ PAIN 16) POLYETHYLENE GLYCOL 3350 ORAL PWDR MIX AND DRINK 1 CAPFUL BY ACTIVE MOUTH TWICE DAILY NEEDED Indication: FOR CONSTIPATION 17) RIFAXIMIN 550MG TAB TAKE ONE TABLET BY MOUTH TWICE A DAY ACTIVE Indication: FOR HEPATIC ENCEPHALOPATHY 18) SIMETHICONE 80MG CHEW TAB CHEW AND SWALLOW ONE TABLET BY ACTIVE MOUTH FOUR TIMES A DAY NEEDED Indication: FOR GAS DISCOMFORT 19) SPIRONOLACTONE 100MG TAB TAKE TWO TABLETS BY MOUTH EVERY ACTIVE (S) MORNING Indication: FOR ASCITES 20) TERIPARATIDE 250MCG/ML(560MCG)2.24ML PEN INJECT 20MCG/0.08ML ACTIVE UNDER THE SKIN ONCE A DAY (USE WITH NEEDLE,PEN 31G,5/16IN - SEPARATE RX) Indication: FOR OSTEOPOROSIS Active Non-VA Medications Status 1) Non-VA ASPIRIN 81MG EC TAB 81MG BY MOUTH ONCE A DAY ACTIVE 2) Non-VA AZELASTINE 137MCG/SPRAY 200D NASAL INHL 1 SPRAY ACTIVE NOSTRIL(S) TWICE A DAY 3) Non-VA CETIRIZINE HCL 10MG TAB 10MG BY MOUTH ONCE A DAY ACTIVE 4) Non-VA ESCITALOPRAM OXALATE 20MG TAB 10MG BY MOUTH ONCE A ACTIVE DAY 5) Non-VA FLUTICASONE PROP 50MCG 120D NASAL INHL 1 SPRAY ACTIVE NOSTRIL(S) ONCE A DAY 6) Non-VA SENNOSIDES 8.6MG TAB 8.6MG BY MOUTH ONCE A DAY ACTIVE NEEDED 26 Total Medications ALLERGIES OR DRUG SENSITIVITIES: SULFA DRUGS, OXYBUTYNIN CHLORIDE DIET: Low sodium, low fat ACTIVITY: As tolerated INFORMATION REGARDING CONDITION OR PROPER HOME AND/OR WOUND CARE: Left BKA stage 3 PI: Cleanse with saline. Pat dry. Apply piece of Marquita to wound bed and moistened with saline to activate Marquita. Cover with Aqucel bordered foam. Apply addiction social worker. Change daily. 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 [ ] The patient is not competent in the VA sense of the word. TOTAL TIME SPENT FOR FINAL HOSPITAL DISCHARGE: 60 minutes. Verified By T/BABS /zachary/ SORAYA FLORES MD Staff Physician - Allergy & Immunology Signed: 02/01/2025 17:18 for IZZY STORY CIRCULATING NURSE /zachary/ SORAYA FLORES MD Staff Physician - Allergy & Immunology Cosigned: 02/01/2025 17:18 SORAYA FLORES [facility] Jan 31, 2025 03:10 PM NURSING NOTE: LOCAL TITLE: [facility] PROGRESS NOTE STL STANDARD TITLE: NURSING NOTE DATE OF NOTE: JAN 31, 2025@15:10 ENTRY DATE: JAN 31, 2025@15:10:36 AUTHOR: MAINE RING EXP COSIGNER: URGENCY: STATUS: COMPLETED This principal technical writer discharged patient all pertinent information and paperwork was reviewed and given to . Pharmacy was notified of discharge to ensure that medications would be readily available. Transport came to bedside and left unit in route to pharmacy for meds prior to leaving facility. /zachary/ MAINE SUTHERLAND RN REGISTERED NURSE Signed: 01/31/2025 15:13 MAINE RING [facility] Jan 31, 2025 03:00 PM NURSING TRANSFER SUMMARIZATION DISCHARGE NOTE: LOCAL TITLE: [facility] DISCHARGE/TRANSFER SUMMARY ST STANDARD TITLE: NURSING TRANSFER SUMMARIZATION DISCHARGE NOTE DATE OF NOTE: JAN 31, 2025@15:00 ENTRY DATE: JAN 31, 2025@15:00:53 AUTHOR: MAINE RING EXP COSIGNER: URGENCY: STATUS: COMPLETED DISCHARGE - TRANSFER SUMMARY Action: Discharge Diagnosis: Last Admission: 01/30/25 7:23:50 am Admit Dx: DECOMPENSATED CIRRHOSIS Age: 79 Allergies: SULFA DRUGS, OXYBUTYNIN CHLORIDE Patient Condition: Stable Vital Signs: Temperature: 98.8 F [37.1 C] (01/31/2025 08:58) Pulse: 87 (01/31/2025 08:58) Respiration: 20 (01/31/2025 08:58) Blood Pressure: 106/70 (01/31/2025 08:58) Pain: 1 (01/31/2025 12:30) Fall Risk Assessment Score: Fall Risk Level: High Risk ===== SUICIDE SCREEN ===== Result of C-SSRS screener done was NEGATIVE. C-SSRS Screen is Negative Isolation: No Precautions: Fall Orientation: x3 Hygiene: Self Care Nutrition: Modified Diet: LOW SODIUM DIET Special needs: Assistance: Independent Bowel/Bladder: Date of last bowel movement: Jan Defecation: Normal Able to void: YES Continent: YES Catheter: No Wound / Skin Condition: Assessment Type: SKIN REINSPECTION/REASSESSMENT Skin Inspection: Skin Color: Usual for ethnicity Skin Tempature: Warm Skin Moisture: Normal Skin Turgor: Elastic (normal) Jace Skin Assessment: The patient's Jace Scale Score is 21. The patient is considered not at risk for development of pressure ulcers/injuries. Sensory perception -- ability to respond meaningfully to pressure-related discomfort No impairment. Moisture -- degree to which skin is exposed to moisture Rarely moist. Activity -- ability to change and control body position Walks occasionally. Mobility -- ability to change and control body position No limitation. Nutrition -- usual food intake patterns Adequate. Friction and shear No apparent problem. INTERVENTIONS: The pressure injury interventions were not needed - patient/resident is not at risk. RISK FACTORS THAT INCREASE RISK FOR DEVELOPING PRESSURE INJURIES: The patient/resident has the following: Age over 75 Amputee: Comment: LBKA Wound - other than pressure ulcer/injury (includes open surgical wounds/incisions): Location: LEFT MEDIAL ASPECT OF LBKA No Edema Wound drainage none. SKIN/WOUND DRESSING: Location(s): LBKA Clean Dry Intact STANDARD OF CARE / PRACTICE IMPLEMENTED: Indicate status at Discharge/Transfer: Resolved Flu Shot Given: No Patient refused Pneumococcal Shot Given: No Patient refused MRSA Discharge Swab Done: No Reason: N/A Discharged/Transfered to: Residential Care Facility Accompanied by (Name & Relationship): Next of Kin notified: NO Discharge/Transfer Mode: Wheelchair Discharged/Transferred with: Written Discharge Instructions Medications Return Appointments The was informed of the date and time of his/her follow-up mental health appointments: The was provided the opportunity to cancel or change his/her scheduled follow-up mental health appointments: The was educated about what to do and who to contact should he/she need to cancel the follow-up mental health appointment: Clothing / Valuables returned: Yes Describe: GLASSES ARTIFICIAL LEFT LEG LIMB PHONE RING SUSPENDERS WEATHERS SHIRT BLUE JEANS SOCKS SHOS WALLET WITH $45.00 DID NOT WITNESS MONEY SMALL POCKET KNIFE Prosthetics with patient: Dentures/Partials with patient: None Glasses with patient: YES Other: Printed MD Instruction sheet with medication list reviewed and given to the patient/caregiver. Patient/Caregiver verifies medication list is complete and accurate. Patient/Caregiver appeared ready for instruction (good eye contact, appropriate questions, active participation, etc) Person(s) who received education: Patient Education Topic/Teaching Needs: Disease/Condition DECOMPENSATED CIRRHOSIS Medication ALL MEDICATIONS REVIEWED WITH PATIENT AT TIME OF DISCHARGE Diet/Nutrition LOW SODIUM DIET Follow-up Instructions F/U INSTRUCTIONS REVIEWED WITH PATIENT AT TIME OF DISCHARGE Methods used Included: A copy of the Discharge Instructions Health Summary given to patient/caregiver and signed by patient/guardian. Patient's medications were reviewed and reconciled by discharge team. Teaching outcomes: Fair level of understanding /es/ MAINE SUTHERLAND RN REGISTERED NURSE Signed: 01/31/2025 15:10 MAINE RING [facility] Jan 31, 2025 02:59 PM NURSING NOTE: LOCAL TITLE: [facility] NSG IV INSERTION AND MAINTENANCE STANDARD TITLE: NURSING NOTE DATE OF NOTE: JAN 31, 2025@14:59 ENTRY DATE: JAN 31, 2025@14:59:52 AUTHOR: MAINE RING EXP COSIGNER: URGENCY: STATUS: COMPLETED Version 2.2 Charting in accordance with [place] APPROVED AGUA CALIENTE STANDARD (ALAES) ACUTE INPATIENT/REHABILITATION NURSING ADMISSION SCREENING, ASSESSMENT, AND STANDARDS OF CARE IV Line Insertion and Maintenance Peripheral IV Line #1: Discontinue: Location: Left, Forearm Date/Time: Jan Reason for discontinuation: Therapy complete PATIENT DISCHARGED /es/ MAINE SUTHERLAND RN REGISTERED NURSE Signed: 01/31/2025 15:00 MAINE RING [facility] Jan 31, 2025 02:13 PM NURSING INPATIENT NOTE: LOCAL TITLE: [facility] NURSING FREQUENT DOCUMENTATION STANDARD TITLE: NURSING INPATIENT NOTE DATE OF NOTE: JAN 31, 2025@14:13 ENTRY DATE: JAN 31, 2025@14:13:17 AUTHOR: RANJITH EM EXP COSIGNER: URGENCY: STATUS: COMPLETED Version 2.4 Charting in accordance with [facility] AGUA CALIENTE STANDARD (ALAES) ACUTE INPATIENT/REHABILITATION NURSING ADMISSION SCREENING, ASSESSMENT, AND STANDARDS OF CARE ======== GASTROINTESTINAL ======== Last bowel movement: 01/31/25 Stool: Description: Semi-formed Color: Brown Amount: Large Elimination: /zachary/ RANJITH EM CNA GROUP BILLING COORDINATOR Signed: 01/31/2025 14:14 RANJITH EM [facility] Jan 31, 2025 12:47 PM NURSING INPATIENT NOTE: LOCAL TITLE: [facility] NURSING FREQUENT DOCUMENTATION STANDARD TITLE: NURSING INPATIENT NOTE DATE OF NOTE: JAN 31, 2025@12:47 ENTRY DATE: JAN 31, 2025@12:47:58 AUTHOR: RANJITH EM EXP COSIGNER: URGENCY: STATUS: COMPLETED Version 2.4 Charting in accordance with [place] APPROVED AGUA CALIENTE STANDARD (VAAES) ACUTE INPATIENT/REHABILITATION NURSING ADMISSION SCREENING, ASSESSMENT, AND STANDARDS OF CARE ========= ORAL INTAKE (PERCENTAGE OF MEAL EATEN) ========= Lunch: 26% - 50% Liquid supplement: % Consumed/Comment: Ensure 100% /zachary/ RANJITH EM CNA GROUP BILLING COORDINATOR Signed: 01/31/2025 12:49 RANJITH EM [facility] Jan 31, 2025 12:04 PM GASTROENTEROLOGY TELEPHONE ENCOUNTER NOTE: LOCAL TITLE: GASTROENTEROLOGY TELEPHONE NOTE STL STANDARD TITLE: GASTROENTEROLOGY TELEPHONE ENCOUNTER NOTE DATE OF NOTE: JAN 31, 2025@12:04 ENTRY DATE: JAN 31, 2025@12:04:57 AUTHOR: ARMINDA BACON EXP COSIGNER: URGENCY: STATUS: COMPLETED I was notidied by Dr Story that Mr Fish was in-pt and had a paracentesis 01/30/25 (2600 ml ascites removed), and to cancel the scheduled paracentesis for 02/01/25 in GI Lab--done. I requested that DR Story again provide my contact number (ext [phone]) for Mr Fish to call me if/when another paracentesis is needed. /zachary/ ARMINDA BACON RN HEPATOLOGY DYNAMITE PACKING MACHINE FEEDER Signed: 01/31/2025 12:06 Receipt Acknowledged By: 01/31/2025 13:36 /zachary/ Lisa Harvey PA-C Physician Audio Visual Collections Coordinator - Gastroenterology ARMINDA BACON [facility] Jan 31, 2025 10:55 AM PHYSICIAN EDUCATION DISCHARGE NOTE: LOCAL TITLE: DISCHARGE INSTRUCTIONS STL STANDARD TITLE: PHYSICIAN EDUCATION DISCHARGE NOTE DATE OF NOTE: JAN 31, 2025@10:55 ENTRY DATE: JAN 31, 2025@10:56:02 AUTHOR: IZZY STORY COSIGNER: SORAYA FLORES URGENCY: STATUS: COMPLETED DISCHARGE INSTRUCTIONS STL Has ADDENDA MEDICATIONS THAT WERE CHANGED: 1) PANTOPRAZOLE NA 40MG EC TAB TAKE ONE TABLET BY MOUTH TWO TIMES A DAY BEFORE MEALS TAKE 30 MINUTES BEFORE MEAL(S) Indication: LUQ PAIN MEDICATIONS THAT WERE STOPPED (AND REASON FOR STOPPING): Amiloride: We replaced this medication with spironolactone. NEW MEDICATIONS WITH INSTRUCTIONS: 1) ACETAMINOPHEN 500MG TAB TAKE ONE TABLET BY MOUTH FOUR TIMES A DAY NEEDED CAUTION: DO NOT EXCEED 4000MG PER DAY ACETAMINOPHEN (APAP) FROM ALL MEDS. Indication: FOR PAIN 2) CARVEDILOL 12.5MG TAB TAKE ONE-HALF TABLET BY MOUTH TWICE A DAY TAKE WITH FOOD. 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 Also, your abdomen was swollen so we drained 2.6 liters of fluid from your abdominal cavity using a procedure called a paracentesis. We also started you on two medications: carvedilol and spironolactone. Carvedilol is a medication that prevents blood vessels in your esophagus from getting too big and bleeding, which can be a complication of liver cirrhosis. Spironolactone is a medication that is commonly used with furosemide (a medication you are already on) that helps you urinate more and prevent fluid buildup in your abdomen. Please continue these medications, along with lactulose and all of your home medications. Also, please provide a copy of these instructions to your assisted living facility and let them know that you need a low-sodium and low-fat diet. A low- sodium diet will help prevent fluid buildup in your abdomen, and a low-fat diet will help prevent worsening the pain of your chronic pancreatitis. It was a pleasure and a privilege caring for you. We hope for the best in your recovery. YOUR OUTPATIENT CARE TEAM: Team Information Primary Care Team: [facility] PACT 06 *[facility]* PC Provider: TRUMAN GONZALEZ Position: PHYSICIAN FUTURE APPOINTMENTS: 02/01/2025 11:00 [facility] INPATIENT APPOINTMENT 03/01/2025 13:00 [facility] CONSULT 4 INPATIENT APPOINTMENT 03/14/2025 10:15 [facility] INPATIENT APPOINTMENT OTHER IMPORTANT THINGS TO DO: (1) Please DO NOT FORGET to take any of your medications. (2) Please do not take more than 2,000 mg (2 grams) of Tylenol in one day. (3) Please provide the dietary instructions below to your assisted living facility as signed by the physician. YOUR KNOWN ALLERGIES: SULFA DRUGS, OXYBUTYNIN CHLORIDE CALL YOUR DOCTOR IF YOU HAVE ANY OF THESE PROBLEMS: Gastrointestinal (stomach problems): Blood in stool or dark black sticky stools, Change in stool color and/or consistency, Constipation for several days, Nausea and vomiting, Severe abdominal (stomach) pain, Chills or fever of 101 or greater PHYSICAL ACTIVITY: Activity as tolerated DIET: Oral Nutrition/Diet Instructions 2gm Sodium: A low sodium diet helps treat hypertension, heart conditions, heart failure, fluid retention, and conditions of the kidneys. Tips for following a low-sodium diet include: -Limiting overall intake to around 2000 mg or less daily. -Choosing items that have less than 140 mg per serving can help you stay within the daily recommendations. -Choose less processed foods (lunch meats, canned foods, lomax, sausage, etc. are typically higher in salt) -Choose more fruits, vegetables, and lean protein sources -Rinse and drain all canned foods -Limit added salt from the shaker, condiments, sauces, gravies, and pickled items -Avoid salt substitutes such as NoSalt or NuSalt unless cleared to use by your doctor -Speak to a Registered Dietitian to learn more ways to lower your sodium intake Low-Fat/Fat-Restricted: A low-fat diet provides less than 30% of your calories from fat. Some fat sources are healthier than others. [place] oil, peanut oil, canola oil, avocados, nuts, and nut butters are considered healthier sources of fat. Limiting saturated fat from butter, high-fat dressings, sauces, fatty cuts of meat, lard, and fried foods is recommended. When trying to lower your intake of fat, it is recommended that you: -Increase your intake of fruits, vegetables, whole grains, and lean protein sources -Limit added fats from sauces and gravies -Choose healthier sources of fats when cooking -Speak to a Registered Dietitian to help you create a personalized low-fat diet DEVICES AT DISCHARGE: Not Applicable: The patient should be discharged with no urinary catheter or intravenous access TOBACCO & ALCOHOL: Discharge tobacco cessation medication(s) not indicated due to: Other reason(s) documented by physician/QUICKBOOKS BOOKKEEPER/PA or pharmacist Reason(s): Not indicated Discharge medications for alcohol/drug disorder not offered Reason: Not indicated DISCHARGE INSTRUCTIONAL MATERIALS: CONDITION OF PATIENT AT DISCHARGE: Stable DISCHARGE DESTINATION: Home NOTE: If you are having feelings of Depression or Emotional Distress, or feel you just need to talk with someone, please call [phone]), [facility] - Press 1. COPY OF DISCHARGE INSTRUCTIONS: The patient/family understands and will be provided a copy of these discharge instructions. DISCHARGE MEDICATION LIST: Active Outpatient Medications (including Supplies): Active Outpatient Medications Status 1) CALCIUM 600MG/VITAMIN D 400UNIT TAB TAKE 1 TABLET BY MOUTH ACTIVE TWICE A DAY WITH FOOD Indication: FOR CALCIUM SUPPLEMENTATION 2) COLESTIPOL HCL 1GM TAB TAKE ONE TABLET BY MOUTH TWICE A DAY ACTIVE (OTHER MEDICATIONS SHOULD BE TAKEN 1 HOUR BEFORE OR 4 HOURS AFTER COLESTIPOL) Indication: FOR DIARRHEA 3) CREON 36,000UNIT EC CAP TAKE 2 CAPSULES BY MOUTH THREE TIMES ACTIVE A DAY BEFORE MEALS TAKE WITH FOOD DIRECTED. Indication: FOR PANCREATIC INSUFFICIENCY 4) DEPEND UNDERWEAR,MAXIMUM,MEN LARGE USE 1 DIAPER TO AFFECTED ACTIVE AREA(S) 5 TIMES A DAY NEEDED Indication: FOR INCONTINENCE 5) FLUTICASONE PROP 50MCG 120D NASAL INHL INSTILL 1 SPRAY IN ACTIVE NOSTRIL(S) ONCE A DAY (MUST BE USED DIRECTED FOR MINIMUM OF 21 DAYS TO PROVIDE ADEQUATE BENEFITS) Indication: FOR CHRONIC RHINOSINUSITIS 6) FUROSEMIDE 80MG TAB TAKE ONE TABLET BY MOUTH EVERY MORNING ACTIVE Indication: FOR FLUID RETENTION (EDEMA) 7) GABAPENTIN 100MG CAP TAKE ONE CAPSULE BY MOUTH TWICE DAILY ACTIVE NEEDED Indication: FOR PAIN 8) IPRATROPIUM BR 0.03% NASAL SPRAY USE 2 SPRAYS INTO HOLD NOSTRIL(S) THREE TIMES A DAY Indication: FOR ALLERGIC RHINITIS 9) LACTULOSE 10GM/15ML ORAL SOLN TAKE 30 ML BY MOUTH EVERY 6 ACTIVE HOURS NEEDED Indication: FOR CONSTIPATION 10) MAGNESIUM CITRATE LIQUID TAKE 1 BOTTLE BY MOUTH ONE-TIME ACTIVE PREP BEFORE COLONOSCOPY Indication: FOR BOWEL EMPTYING 11) NUTRITION SUPL ENSURE PLUS/CAIT LIQUID TAKE 1 CANFUL BY ACTIVE MOUTH TWICE A DAY Indication: FOR NUTRITION/DIETARY SUPPLEMENTATION 12) OLODATEROL/TIOTROP 2.5MCG/ACTUAT 60D INH INHALE 2 PUFFS BY ACTIVE ORAL INHALATION ONCE A DAY ADMINISTER AT SAME TIME EACH DAY Indication: FOR COPD 13) POLYETHYLENE GLYCOL 3350 ORAL PWDR MIX AND DRINK 1 CAPFUL BY ACTIVE MOUTH TWICE DAILY NEEDED Indication: FOR CONSTIPATION 14) RIFAXIMIN 550MG TAB TAKE ONE TABLET BY MOUTH TWICE A DAY ACTIVE Indication: FOR HEPATIC ENCEPHALOPATHY 15) SIMETHICONE 80MG CHEW TAB CHEW AND SWALLOW ONE TABLET BY ACTIVE MOUTH FOUR TIMES A DAY NEEDED Indication: FOR GAS DISCOMFORT 16) TERIPARATIDE 250MCG/ML(560MCG)2.24ML PEN INJECT 20MCG/0.08ML ACTIVE UNDER THE SKIN ONCE A DAY (USE WITH NEEDLE,PEN 31G,5/16IN - SEPARATE RX) Indication: FOR OSTEOPOROSIS Pending Outpatient Medications Status 1) ACETAMINOPHEN 500MG TAB TAKE ONE TABLET BY MOUTH FOUR TIMES PENDING A DAY NEEDED CAUTION: DO NOT EXCEED 4000MG PER DAY ACETAMINOPHEN (APAP) FROM ALL MEDS. Indication: FOR PAIN 2) CARVEDILOL 12.5MG TAB TAKE ONE-HALF TABLET BY MOUTH TWICE A PENDING DAY TAKE WITH FOOD. 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 3) LACTULOSE 10GM/15ML ORAL SOLN TAKE 30 ML BY MOUTH EVERY 6 PENDING HOURS NEEDED Indication: FOR CONSTIPATION 4) LACTULOSE 10GM/15ML ORAL SOLN TAKE 30 ML BY MOUTH EVERY 6 PENDING HOURS NEEDED Indication: FOR CONSTIPATION 5) PANTOPRAZOLE NA 40MG EC TAB TAKE ONE TABLET BY MOUTH TWO PENDING TIMES A DAY BEFORE MEALS TAKE 30 MINUTES BEFORE MEAL(S) Indication: LUQ PAIN 6) SPIRONOLACTONE 100MG TAB TAKE TWO TABLETS BY MOUTH EVERY PENDING MORNING Indication: FOR ASCITES Active Non-VA Medications Status 1) Non-VA ASPIRIN 81MG EC TAB 81MG BY MOUTH ONCE A DAY ACTIVE 2) Non-VA AZELASTINE 137MCG/SPRAY 200D NASAL INHL 1 SPRAY ACTIVE NOSTRIL(S) TWICE A DAY 3) Non-VA CETIRIZINE HCL 10MG TAB 10MG BY MOUTH ONCE A DAY ACTIVE 4) Non-VA ESCITALOPRAM OXALATE 20MG TAB 10MG BY MOUTH ONCE A ACTIVE DAY 5) Non-VA FLUTICASONE PROP 50MCG 120D NASAL INHL 1 SPRAY ACTIVE NOSTRIL(S) ONCE A DAY 6) Non-VA SENNOSIDES 8.6MG TAB 8.6MG BY MOUTH ONCE A DAY ACTIVE NEEDED 28 Total Medications Active Remote Medications: No Active Remote Medications for this patient /rocio STORY CIRCULATING NURSE Signed: 01/31/2025 10:59 /es/ SORAYA FLORES MD Staff Physician - Allergy & Immunology Cosigned: 01/31/2025 17:25 01/31/2025 ADDENDUM STATUS: COMPLETED Updated Medication: Gabapentin 100 mg TID (not 100 BID prn) Also, please provide Mr. Fish with an updated Hepatology Paracentesis clinic number: [phone] ext [phone]. He can call this number when he needs a paracentesis. /zachary/ IZZY STORY CIRCULATING NURSE Signed: 01/31/2025 12:17 /es/ SORAYA FLORES MD Staff Physician - Allergy & Immunology Cosigned: 01/31/2025 17:25 IZZY STORY [facility] Jan 31, 2025 09:21 AM NUTRITION DIETETICS CONSULT: LOCAL TITLE: Nutrition Consult [facility] STANDARD TITLE: NUTRITION DIETETICS CONSULT DATE OF NOTE: JAN 31, 2025@09:21 ENTRY DATE: JAN 31, 2025@09:21:35 AUTHOR: MEG GARCIA EXP COSIGNER: URGENCY: STATUS: COMPLETED Nutrition Assessment SGA (brief) Nutrition risk per subjective global assessment (SGA) SGA rating is >5 indicating nutrition problem. NUTRITION ASSESSMENT CLIENT HISTORY: 79 year old MALE admitted for decompensated alcohol-related cirrhosis requiring paracentesis Patient medical health history: Alcoholic cirrhosis Amputated below knee Solitary nodule of lung Moderate protein-calorie malnutrition (weight for age 60-74% of standard) Vitamin D Deficiency AF - Atrial Fibrillation Mild cognitive impairment COPD - Chronic Obstructive Pulmonary Disease Food and Nutrition related history: Diet Order: Low Sodium (01/30/25) Food and Fluid Intake: [place] reporting that his appetite and PO intake are improving. Reports since recent admission that his appetite has improved. Reports that he typically consumes 2 Ensure Plus today, but getting flavor fatigue. Reports tolerating meal well since admission. RD witnessed breakfast tray at bedside with 100% of tray consumed. Documented intake not yet available this admission. Medications and Herbal Supplements: LACTULOSE 10G/15ML SOLN,ORAL PO Q6H PRN 10GM/15ML CALCIUM/VITAMIN D (OTC) TAB PO BID 1 TABLET FUROSEMIDE TAB PO QAM DIURETIC 80MG PANCRELIPASE (CREON) 506521/[id number]/ PO TID AC 2 CAPSULES RIFAXIMIN TAB PO BID 550MG SPIRONOLACTONE TAB PO QAM DIURETIC Anthropometric Measurements: Ht: 71 in [180.3 cm] (01/18/2025 09:19) Wt: 166 lb [75.30 kg] (01/30/2025 08:44) BMI: 23.2 Weight History/Significant changes: Weight fluctuations related to fluid status -2600ml fluid removed during paracentesis 01/30 -10 lbs. (5.7%) in 1.5 months Patient Weight History - Last Four 1. 166.0 lbs. / 75.3 kg. on JAN 30, 2025@08:44:25 2. 185.0 lbs. / 83.9 kg. on JAN 18, 2025@09:19:32 3. 180.3 lbs. / 81.8 kg. on DEC 20, 2024@10:23:19 4. 176.0 lbs. / 79.8 kg. on DEC 11, 2024@13:39:21 LABS: SODIUM 130 L mEq/L 01/30/2025 14:00 POTASSIUM 3.1 L mEq/L 01/30/2025 14:00 UREA NITROGEN 25.9 H mg/dL 01/30/2025 14:00 CALCIUM 8.1 L mg/dL 01/30/2025 14:00 ALBUMIN 3.0 L g/dL 01/30/2025 14:00 Social History: Lives CHRISTOPHE Nutrition Focused Physical Findings: Denies chewing or swallowing issues Denies N/V Abd: mildly distended, paracentesis L. BKA NUTRITIONAL FOCUSED PHYSICAL EXAM FINDINGS: Fat status: Mild subcutaneous fat wasting noted in fat overlaying the ribs Muscle Status: Mild muscle mass wasting noted in clavicle region (pectoralis major, deltoid), shoulder region (acromion process, deltoid, trapezius) Skin: Stage 3 PI on L. stump, healing Nutrition Prescription: IBW (BKA): 76 kg Estimated energy needs: 3480-7684 kcals (30-35kcals/kg) Estimated protein needs: 98-114g (1.3-1.5g/kg) Estimated fluid needs: 2280-2660ml (ml/kcal) NUTRITION DIAGNOSIS ACTIVE Continued from nutrition assessment dated: 01/19/25 Increased protein needs related to increased demand for nutrient as evidenced by loss of skin integrity, loss of muscle mass and subcutaneous fat, estimates of insufficient intake of energy or high-quality protein from diet when compared to requirements and cirrhosis. [physiological-metabolic etiology] MALNUTRITION - present on admission Based on the [...] Prescription-- Restricted sodium diet: low sodium diet Increased energy and protein --Meals and Snacks Encouraged to request snacks from bulk nourishment PRN --Medical Food Supplement Therapy Commercial beverage medical food supplement therapy: Added Ensure Plus BID [Justification: malnutrition] --Nutrition Education Content Content related nutrition education: Discussed ways to flavor ONS to combat flavor fatigue. previously education on food first approach and ONS. Discussed protein role in wound healing and [...] estimated intake from oral diet in 24H >90g over the next 5 days. Follow up date: Jan /zachary/ Meg Garcia MS, RDN Clinical Dietitian Signed: 01/31/2025 12:08 MEG GARCIA [facility] Jan 31, 2025 09:19 AM NURSING INPATIENT NOTE: LOCAL TITLE: [facility] NURSING FREQUENT DOCUMENTATION STANDARD TITLE: NURSING INPATIENT NOTE DATE OF NOTE: JAN 31, 2025@09:19 ENTRY DATE: JAN 31, 2025@09:19:25 AUTHOR: RANJITH EM EXP COSIGNER: URGENCY: STATUS: COMPLETED Version 2.4 Charting in accordance with [place] APPROVED AGUA CALIENTE STANDARD (ALAES) ACUTE INPATIENT/REHABILITATION NURSING ADMISSION SCREENING, ASSESSMENT, AND STANDARDS OF CARE ======== ACTIVITIES OF DAILY LIVING ======== Hygiene ADLs: Dressing: Upper Body: Independent Lower Body: Independent Eating: Independent Foot Care: Inspection Comment: LBKA Oral Care: Non-ventilator patient: Patient teeth brushed: Independently Completed The [place] was educated that poor oral hygiene increases the risk of hospital acquired pneumonia and dental problems like gingivitis and tooth decay. was educated using their preferred method and verbalized understanding. Pericare: Independent Personal Care: Independent Toileting: Independent ========= ACTIVITY/MOBILIZATION ========= [facility] - Highest Level of Mobility achieved this shift: 3 - Sat at edge of bed ======== ENVIRONMENTAL SAFETY MANAGEMENT ======== Implemented safety standards of care: -[place] to unit & environment -Adequate room lighting -Bed in low and locked position -Call light within reach -Personal items within reach -Traffic path in room free of clutter -Non-slip footwear -Upper/half length side rails up for bed mobility -Sensory aids within reach -Encourage patient to utilize sensory support Additional safety measures: Increased frequency of rounding Other: Fall precautions ======== GASTROINTESTINAL ======== Last bowel movement: 01/31/2025 Bowel movement reported by patient-unwitnessed Stool: Description: Color: Amount: Small Elimination: Continent ======== GENITOURINARY ======== Elimination: Continent ========= ORAL INTAKE (PERCENTAGE OF MEAL EATEN) ========= Breakfast: 76% - 100% ========= Pain ========= DVPRS Scale Location: [facility] Pain Rating Scale (DVPRS): 6 Hard to ignore, avoid usual activities Pain Score: 6 Patient's acceptable pain goal: 6 Hard to ignore, avoid usual activities Pain Interventions: /es/ RANJITH EM CNA GROUP BILLING COORDINATOR Signed: 01/31/2025 09:22 RANJITH EM [facility] Jan 31, 2025 09:03 AM NURSING INPATIENT NOTE: LOCAL TITLE: [facility] ACUTE INPATIENT NSG SHIFT ASSESSMENT STANDARD TITLE: NURSING INPATIENT NOTE DATE OF NOTE: JAN 31, 2025@09:03 ENTRY DATE: JAN 31, 2025@09:03:20 AUTHOR: MAINE RINGER: URGENCY: STATUS: COMPLETED Version 2.2 Charting in accordance with [place] APPROVED AGUA CALIENTE STANDARD (VAAES) ACUTE INPATIENT/REHABILITATION NURSING ADMISSION SCREENING, ASSESSMENT, AND STANDARDS OF CARE ======== ASSESSMENT ======== ======== HANDOFF ======== Bedside report and handoff completed ======== PAIN ASSESSMENT ======== Are you currently experiencing pain? No: Pain Score: 0 ======== ZABALA FALL SCALE & TIPS PROGRAM [...] Fall TIPS initiated with patient: Yes Interventions: Assistance out of bed: Call for assistance before getting out of bed Fall TIPS reviewed with patient: Yes Interventions: Assistance out of bed: Call for assistance before getting out of bed ======== ENVIRONMENTAL SAFETY MANAGEMENT ======== Implemented safety standards of care: -[place] to unit & environment -Adequate room lighting -Bed in low and locked position -Call light within reach -Personal items within reach -Traffic path in room free of clutter -Non-slip footwear -Upper/half length side rails up for bed mobility -Sensory aids within reach -Encourage patient to utilize sensory support Additional safety measures: Increased frequency of rounding ======== NEUROLOGICAL ======== Neurological Orientation: Oriented x4 Level of Consciousness (AVPU): Alert = Appears aware of and responsive to the environment on their own. Follows commands, opens eyes spontaneously, and tracks objects. ======== NEUROMUSCULAR/NEUROVASCULAR EXTREMITIES ASSESSMENT ======== Strength: Director Of Counseling Bilateral: Strong Upper Extremity Bilateral: Full strength Lower Extremity Bilateral: Unequal Lower Extremity Strength: Right: Full strength Left: Amputation present Sensation: Upper Extremity Sensation Bilateral: Intact Lower Extremity Sensation Bilateral: Unequal Lower Extremity Sensation: Right: Intact Left: Amputation present Temperature: Upper Extremity Temperature Bilateral: Warm Lower Extremity Temperature Bilateral: Unequal Temperature: Right: Warm Left: Amputation present ======== CARDIOVASCULAR ======== Heart Rate/Rhythm (without quality assurance monitor final): Regular Capillary Refill: R Hand: Less than or equal to 3 seconds L Hand: Less than or equal to 3 seconds R Foot: Less than or equal to 3 seconds L Foot: Unable to assess Peripheral Pulses: R Radial: 3+ Strong L Radial: 3+ Strong R Dorsalis Pedis: 3+ Strong L Dorsalis Pedis: Unable to assess R Posterior Tibial: L Posterior Tibial: R Popliteal: L Popliteal: Edema: None ======== RESPIRATORY ======== Respirations: Unlabored Pattern: Regular Breath Sounds Auscultated: Anterior and posterior Left Upper Lobe: Clear Right Upper Lobe: Clear Right Middle Lobe: Clear Left Lower Lobe: Clear Right Lower Lobe: Clear ======== GASTROINTESTINAL ======== No bowel movement reported by patient Elimination: Continent Abdominal Description: Rounded Palpation: Soft, Non-tender Bowel Sounds: RUQ: Active LUQ: Active RLQ: Active LLQ: Active ======== GENITOURINARY ======== Elimination: Continent Color/Characteristic: Clear Yellow ======= INTEGUMENTARY/SKIN/WOUND - (INCLUDING JACE) SEE NOTE: VAAES SKIN INPECTION/ASSESSMENT ======= ======== ACTIVITIES OF DAILY LIVING ======== Hygiene ADLs: Oral Care: Non-ventilator patient: Patient teeth brushed: Independently ======== MOBILITY ======== Mobility Status: Independent: Able to stand and step without staff assistance Steady standing balance Equipment utilized: Prosthetic limb: LEFT LEG Gait: Other: CAN STAND NOT WITNESSED WALKING ======== IV LINES ======== Peripheral IV: Line #1: Assessment: Location: Left, Antecubital Gauge: 20 Dressing Condition: Clean, dry, intact Transparent dressing Site Condition: No redness, swelling, pain Line Status: Flushed ======== PSYCHOSOCIAL ======== Type of Emotional Support Provided: 1:1 discussion, Treatment discussion, Ventilation of feelings encouraged Additional Comment: Received report and care for this patient at 0755 this morning no sob or s/sx of distress noted call light and personal belongings within reach bed locked in lowest position for safety will continue to monitor throughout shift. /zachary/ MAINE SUTHERLAND RN REGISTERED NURSE Signed: 01/31/2025 09:09 MAINE RING [facility] Jan 31, 2025 09:00 AM NURSING NOTE: LOCAL TITLE: [facility] SKIN INSPECTION/ASSESSMENT STANDARD TITLE: NURSING NOTE DATE OF NOTE: JAN 31, 2025@09:00 ENTRY DATE: JAN 31, 2025@09:00:36 AUTHOR: MAINE RING EXP COSIGNER: URGENCY: STATUS: COMPLETED Assessment Type: SKIN REINSPECTION/REASSESSMENT Skin Inspection: Skin Color: Usual for ethnicity Skin Tempature: Warm Skin Moisture: Normal Skin Turgor: Elastic (normal) Jace Skin Assessment: The patient's Jace Scale Score is 21. The patient is considered not at risk for development of pressure ulcers/injuries. Sensory perception -- ability to respond meaningfully to pressure-related discomfort No impairment. Moisture -- degree to which skin is exposed to moisture Rarely moist. Activity -- ability to change and control body position Walks occasionally. Mobility -- ability to change and control body position No limitation. Nutrition -- usual food intake patterns Adequate. Friction and shear No apparent problem. INTERVENTIONS: The pressure injury interventions were not needed - patient/resident is not at risk. RISK FACTORS THAT INCREASE RISK FOR DEVELOPING PRESSURE INJURIES: The patient/resident has the following: Age over 75 Amputee: Comment: KA SKIN ALTERATIONS: Wound Documentation from the past year: Skin Assessment 01/30/2025 Skin Integrity - Wound MEDIAL ASPECT OF LBKA 01/20/2025 Skin Integrity - Wound 01/19/2025 Skin Integrity - Wound L AKA 01/18/2025 Skin Integrity - Wound medial aspect of L AKA Wound - other than pressure ulcer/injury (includes open surgical wounds/incisions): Location: LEFT MEDIAL ASPECT OF KA C/D/I No Edema Wound drainage none. /zachary/ MAINE SUTHERLAND RN REGISTERED NURSE Signed: 01/31/2025 09:03 MAINE RING [facility] Jan 31, 2025 08:59 AM NURSING INPATIENT NOTE: LOCAL TITLE: [facility] NURSING FREQUENT DOCUMENTATION STANDARD TITLE: NURSING INPATIENT NOTE DATE OF NOTE: JAN 31, 2025@08:59 ENTRY DATE: JAN 31, 2025@08:59:39 AUTHOR: MAINE RING EXP COSIGNER: URGENCY: STATUS: COMPLETED Version 2.4 Charting in accordance with [facility] AGUA CALIENTE STANDARD (ALAES) ACUTE INPATIENT/REHABILITATION NURSING ADMISSION SCREENING, ASSESSMENT, AND STANDARDS OF CARE ======== NATIONAL EARLY WARNING SCORE (NEWS) ======== The following vital measurements were used to complete the NEWS. Measurement DT TEMP PULSE RESP BP POx F(C) (L/MIN)(%) 01/31/2025 08:58 98.8(37.1) 87 20 106/70 99 The NEWS total is 1. 1. Temperature (C/F): Score = 0 36.1 - 38.0 C (96.9 - 100.4 F) 2. Pulse: Score = 0 51-90 3. Respirations: Score = 0 12-20 4. Blood Pressure (Only Systolic BP, mmHg): Score = 1 101-110 5. Pulse Oximetry: Score = 0 96% or greater 6. Supplemental oxygen in use: Score = 0 No 7. AVPU: Score = 0 Alert Patient Status: Remains on unit /es/ MAINE SUTHERLAND RN REGISTERED NURSE Signed: 01/31/2025 09:00 MAINE RING [facility] Jan 31, 2025 06:52 AM NURSING INPATIENT NOTE: LOCAL TITLE: [facility] PATIENT SAFETY CHECK STL STANDARD TITLE: NURSING INPATIENT NOTE DATE OF NOTE: JAN 31, 2025@06:52 ENTRY DATE: JAN 31, 2025@06:52:35 AUTHOR: NIKOLAY NAVARRETE EXP COSIGNER: URGENCY: STATUS: COMPLETED BEDSIDE SAFETY CHECK STL Incision(s) inspected:N/A Drain(s) inspected:N/A Wounds Inspected: YES Catheters inspected:N/A A visual sweep of the patient's room for any physical or environmental safety concerns was completed and education provided to patient regarding their personal safety concerns. Comment: Paracentesis site wnl's, pt awake for breakfast, slept overnight with no complaints. /zachary/ NIKOLAY NAVARRETE RN, BSN REGISTERED NURSE Signed: 01/31/2025 06:53 NIKOLAY NAVARRETE [facility] Jan 30, 2025 11:00 PM NURSING NOTE: LOCAL TITLE: [facility] SKIN INSPECTION/ASSESSMENT STANDARD TITLE: NURSING NOTE DATE OF NOTE: JAN 30, 2025@23:00 ENTRY DATE: JAN 31, 2025@02:30:28 AUTHOR: NIKOLAY NAVARRETE COSIGNER: URGENCY: STATUS: COMPLETED Assessment Type: SKIN REINSPECTION/REASSESSMENT Skin Inspection: Skin Color: Usual for ethnicity Skin Tempature: Warm Skin Moisture: Normal Skin Turgor: Elastic (normal) Jace Skin Assessment: The patient's Jace Scale [...] Friction and shear No apparent problem. INTERVENTIONS: The pressure injury interventions were not needed - patient/resident is not at risk. RISK FACTORS THAT INCREASE RISK FOR DEVELOPING PRESSURE INJURIES: The patient/resident has the following: Age over 75 Amputee: Comment: L AKA Localized abnormality: Other: Location(s): L stump Comment: Open area, daily dressing /zachary/ NIKOLAY NAVARRETE RN, BSN REGISTERED NURSE Signed: 01/31/2025 02:32 NIKOLAY NAVARRETE [facility] Jan 30, 2025 11:00 PM NURSING INPATIENT NOTE: LOCAL TITLE: [facility] ACUTE INPATIENT NSG SHIFT ASSESSMENT STANDARD TITLE: NURSING INPATIENT NOTE DATE OF NOTE: JAN 30, 2025@23:00 ENTRY DATE: JAN 31, 2025@02:20:15 AUTHOR: NIKOLAY NAVARRETE COSIGNER: URGENCY: STATUS: COMPLETED Version 2.2 Charting in accordance with [place] APPROVED AGUA CALIENTE STANDARD (VAAES) ACUTE INPATIENT/REHABILITATION NURSING ADMISSION SCREENING, ASSESSMENT, AND STANDARDS OF CARE ======== ASSESSMENT ======== ======== PAIN ASSESSMENT ======== Are you currently experiencing pain? No: Pain Score: 1 ======== ZABALA FALL SCALE & TIPS PROGRAM ======== Zabala Fall Scale: The Zabala Fall scale was performed and score was 40. This is indicative of moderate risk for falls. History of falling: immediate or within 3 months? No Secondary diagnosis: No Ambulatory aid: None/bedrest/nurse assist Intravenous therapy/Heparin lock: Yes Gait/Transferring: Impaired Mental Status: Oriented to own ability/knows own limitations ======== ENVIRONMENTAL SAFETY MANAGEMENT ======== Implemented safety standards of care: -[place] to unit & environment -Adequate room lighting [...] spontaneously, and tracks objects. Affect/behavior: Cooperative Calm Rai Agitation Sedation Scale (RASS): 0 Alert and calm ======= ASPIRATION RISK ASSESSMENT AND SWALLOW SCREEN ======= Aspiration Risk(s): Screening complete. No aspiration risk identified. Bedside Swallow Screen not indicated. ======== CARDIOVASCULAR ======== Heart Rate/Rhythm (without quality assurance monitor final): Regular Edema: None ======== RESPIRATORY ======== Respirations: Unlabored Pattern: Regular Breath Sounds Auscultated: Left Upper Lobe: Clear Right Upper Lobe: Clear Right Middle Lobe: Clear Left Lower Lobe: Clear Right Lower Lobe: Clear ======== GASTROINTESTINAL ======== No bowel movement reported by patient Elimination: Continent Abdominal Description: Distended Other: Pt declines lactulose before HS Palpation: Firm, Guarding ======== GENITOURINARY ======== Elimination: Continent ======= INTEGUMENTARY/SKIN/WOUND - (INCLUDING JACE) SEE NOTE: VAAES SKIN INPECTION/ASSESSMENT ======= ======== MOBILITY ======== Mobility Status: Minimum assist: Comment: Pt is a L BKA-missing stump sock so cannot use prostesis Gait: Unable to ambulate ======== IV LINES ======== Peripheral IV: Line #1: Assessment: Location: Left, Antecubital Gauge: 20 Dressing Condition: Site Condition: Line Status: /es/ NIKOLAY NAVARRETE RN, BSN REGISTERED NURSE Signed: 01/31/2025 02:[address] [facility] Jan 30, 2025 09:40 PM NURSING INPATIENT NOTE: LOCAL TITLE: [facility] NURSING FREQUENT DOCUMENTATION STANDARD TITLE: NURSING INPATIENT NOTE DATE OF NOTE: JAN 30, 2025@21:40 ENTRY DATE: JAN 30, 2025@21:40:09 AUTHOR: BEE YAN COSIGNER: URGENCY: STATUS: COMPLETED Version 2.4 Charting in accordance with [place] APPROVED AGUA CALIENTE STANDARD ([facility]) ACUTE INPATIENT/REHABILITATION NURSING ADMISSION SCREENING, ASSESSMENT, AND STANDARDS OF CARE ======== ACTIVITIES OF DAILY LIVING ======== Hygiene ADLs: Dressing: Upper Body: Independent Upper Body: Moderate assist Lower Body: Independent Lower Body: Moderate assist Eating: Independent Foot Care: Inspection Hand Hygiene: Patient declined Oral Care: Non-ventilator patient: Patient teeth brushed: Independently pt has been giving oral care supply The was educated that poor oral hygiene increases the risk of hospital acquired pneumonia and dental problems like gingivitis and tooth decay. [place] was educated using their preferred method and verbalized understanding. Pericare: Soap and water Independent Moderate assist Personal Care: Independent Toileting: Independent Moderate assist ========= ACTIVITY/MOBILIZATION ========= Mobility Status: Minimum assist: Unable to march and step independently Equipment utilized: Other: wheel chair Moderate assist: Able to sit up independently Gait: Unable to ambulate [facility] Level of Mobility achieved this shift: 1 - Lying in bed ======== ENVIRONMENTAL SAFETY MANAGEMENT ======== Implemented safety standards of care: -[place] to unit & environment -Adequate room lighting -Bed in low and locked position -Call light within reach -Personal items within reach -Traffic path in room free of clutter -Non-slip footwear -Upper/half length side rails up for bed mobility -Sensory aids within reach -Encourage patient to utilize sensory support Additional safety measures: Close to nurses station Increased frequency of rounding ======== GASTROINTESTINAL ======== No bowel movement reported by patient Elimination: Continent ======== GENITOURINARY ======== Elimination: Continent Color/Characteristic: Yellow ========= ORAL INTAKE (PERCENTAGE OF MEAL EATEN) ========= Snacks: % Consumed/Comment: 100 /es/ BEE YAN WIRE WALKER CERTIFERD NURSING ASSTINANT Signed: 01/30/2025 21:45 BEE YAN [facility] Jan 30, 2025 09:09 PM NURSING INPATIENT NOTE: LOCAL TITLE: [facility] NURSING FREQUENT DOCUMENTATION STANDARD TITLE: NURSING INPATIENT NOTE DATE OF NOTE: JAN 30, 2025@21:09 ENTRY DATE: JAN 30, 2025@21:09:28 AUTHOR: NIKOLAY NAVARRETEIGNER: URGENCY: STATUS: COMPLETED Version 2.4 Charting in accordance with [place] APPROVED AGUA CALIENTE STANDARD (VAAES) ACUTE INPATIENT/REHABILITATION NURSING ADMISSION SCREENING, ASSESSMENT, AND STANDARDS OF CARE ======== NATIONAL EARLY WARNING SCORE (NEWS) ======== The following vital measurements were used to complete the NEWS. Measurement DT TEMP PULSE RESP BP POx F(C) (L/MIN)(%) 01/30/2025 20:38 98.3(36.8) 77 18 113/68 92 The NEWS total is 2. 1. [...] No 7. AVPU: Score = 0 Alert /es/ NIKOLAY NAVARRETE RN, BSN REGISTERED NURSE Signed: 01/30/2025 21:10 NIKOLAY NAVARRETE [facility] Jan 30, 2025 07:24 PM NURSING INPATIENT NOTE: LOCAL TITLE: [facility] NURSING FREQUENT DOCUMENTATION STANDARD TITLE: NURSING INPATIENT NOTE DATE OF NOTE: JAN 30, 2025@19:24 ENTRY DATE: JAN 30, 2025@19:24:45 AUTHOR: RANJITH EM EXP COSIGNER: URGENCY: STATUS: COMPLETED Version 2.4 Charting in accordance with [facility] AGUA CALIENTE STANDARD (ALAES) ACUTE INPATIENT/REHABILITATION NURSING ADMISSION SCREENING, ASSESSMENT, AND STANDARDS OF CARE ========= ORAL INTAKE (PERCENTAGE OF MEAL EATEN) ========= Dinner: 51% - 75% /es/ RANJITH EM CNA GROUP BILLING COORDINATOR Signed: 01/30/2025 19:26 RANJITH EM [facility] Jan 30, 2025 04:08 PM INTERNAL MEDICINE NOTE: LOCAL TITLE: PARACENTESIS PROCEDURE [facility] STANDARD TITLE: INTERNAL MEDICINE NOTE DATE OF NOTE: JAN 30, 2025@16:08 ENTRY DATE: JAN 30, 2025@16:08:39 AUTHOR: SORAYA FLORES COSIGNER: URGENCY: STATUS: COMPLETED Lemon: 5N Indication: Ascites secondary to decompensated cirrhosis Procedure performed by: Dr. Izzy Story Assisting/observing procedure: Dr. Soraya Flores If performed by Resident: Name of Attending Physician:Dr. Soraya Flores Circumstances of paracentesis: Emergent: Non-emergent: (X) Consent obtained, signed, in chart: YES A Verbal Procedural Time Out was performed including stating the patient's name, full SSN or , and procedure to be performed at: Jan@14:00 Patient participation in time out: Conscious and able to participate in time out: (X) Unable to participate in time out, and name, and SSN or were verified with their armband or ID: Others participating in the time out were: Procedure narrative: -Patient positioning: Placed in the supine position: (X) Other: -Ultrasound imaging was used for the correia portions of the procedure which included identification of fluid collection: Yes -Site of Paracentesis was marked: YES -Type of prep used: Chlorhexidine: Betadine: (X) Other: -Site draped in usual sterile fashion: Yes -Medications for local anesthesia: Lidocaine: 2 cc of 1% Other: -Paracentesis needle used: Fadumo: (X) Other: -The peritoneal space was entered with the needle with return of 4 cc fluid. -A total of 2600 cc of peritoneal fluid was collected. -The collection of fluid was stopped due to: Slowing and then cessation of fluid removal -The needle was removed, pressure applied to the site, and a bandage applied: Yes Specimen diagnostic testing ordered: Cell count Estimated blood loss: <1 cc Complications: None Cumulative physician time: 60 minutes /zachary/ SORAYA FLORES MD Staff Physician - Allergy & Immunology Signed: 01/30/2025 16:13 [facility] Jan 30, 2025 02:23 PM CONSENT: LOCAL TITLE: CONSENT CLINICAL IMED STANDARD TITLE: CONSENT DATE OF NOTE: JAN 30, 2025@14:23:36 ENTRY DATE: JAN 30, 2025@14:23:41 AUTHOR: HIMA SELLERS COSIGNER: URGENCY: STATUS: COMPLETED VistA Imaging - Scanned Document Signature Informed Consent for Large Volume Abdominal Paracentesis (VA) (Large Volume Abdominal Paracentesis) 1. Anatomical Location: See description of treatment/procedure 2. Informed consent was obtained at 2:17 PM on 01/30/25. The full consent document can be accessed through [employer]. 3. Patient name: ALEX FISH 4. The [...] the plastic catheter will be removed. 8. Moderate sedation will be used. Medications will be administered to decrease anxiety and discomfort during the treatment/procedure. These medications will be administered by a qualified practitioner. Patient response to some of these medications varies. Patients are expected to remain aware and responsive during the treatment or procedure. Minor risks of moderate sedation include temporary amnesia or forgetfulness and drowsiness. Moderate sedation can interfere with your ability to drive, operate machinery, or make important decisions for up to 24 hours. Medications used for moderate sedation can cause allergic reactions, respiratory depression (this is when your breathing slows down and may stop), low blood pressure, and a slow or irregular heart beat. In rare instances these complications can cause . Tell your health care team if you do not want to receive moderate sedation. 9. Consent to Blood Products (if applicable): It is not expected that blood products will be used in this treatment/procedure. 10. Practitioner obtaining consent: Izzy Story MD 11. Supervising practitioner: Soraya Flores MD 12. Practitioner(s) performing or supervising treatment/procedure (if not listed above): 13. Witness Name(s): 14. Comments: SCANNED DOCUMENT SIGNATURE NOT REQUIRED Electronically Filed: 01/30/2025 by: HIMA SELLERS CVIX,HIMA [facility] Jan 30, 2025 09:00 AM WOUND CARE CONSULT: LOCAL TITLE: WOUND CARE CONSULT STL STANDARD TITLE: WOUND CARE CONSULT DATE OF NOTE: JAN 30, 2025@09:00 ENTRY DATE: JAN 30, 2025@09:14:52 AUTHOR: NASEEM NULL COSIGNER: URGENCY: STATUS: COMPLETED Patient seen at bedside per request for wound care consult by provider concerning Source of history: AGE:79 RACE: WHITE GENDER:MALE Last Admission: 01/30/25 7:23:50 am Admit Dx: DECOMPENSATED CIRRHOSIS KNOWN ALLERGIES: SULFA DRUGS, OXYBUTYNIN CHLORIDE CC: Stage 3 PI to Left BKA Stump that was POA. HPI: Per ED: 79M w/ PMH decompensated alcohol-related cirrhosis c/b [...] abnormality Patient noncompliance with salt and fluid restriction. Wound Care Nurse consulted to evaluation wound to left stump. PMH/PSH: 1) Microscopic Hematuria 2) Alcoholic cirrhosis (SNOMED CT 158084358) 3) Hernia of abdominal wall 4) Insomnia 5) Amputated below knee 6) Walking disability 7) Depression 8) Obstructive sleep apnea syndrome 9) Gastroesophageal reflux disease 10) Solitary nodule of lung 11) Legal problem 12) Moderate protein-calorie malnutrition (weight for age 60-74% of standard) 13) Anxiety ([facility] [id number]) 14) Benign Prostatic Hypertrophy With Outflow Obstruction ([facility] [id number]) 15) History of Polyp of Colon ([facility] [id number]) 16) Internal hemorrhoids 17) Vitamin D Deficiency ([facility] [id number]) 18) Allergic Rhinitis ([facility] [id number]) 19) Closed fracture of left acetabulum 20) Narcolepsy 21) AF - Atrial Fibrillation ([facility] [id number]) 22) PE - Pulmonary Embolism ([facility] [id number]) 23) H/O: surgery 24) Low Back Pain ([facility] [id number]) 25) Osteoporosis ([facility] [id number]) 26) Renal Impairment ([facility] [id number]) 27) Mild cognitive impairment 28) COPD - Chronic Obstructive Pulmonary Disease ([facility] [id number]) CURRENT MEDS: Active Inpatient Medications (including Supplies): Active Inpatient Medications Status 1) ACETAMINOPHEN TAB 500MG PO NOW 1st line for pain Do not ACTIVE exceed 2g per day Indication: FOR PAIN 2) ACETAMINOPHEN TAB 500MG PO QID PRN 1st line for pain Do not ACTIVE exceed 2g per day Indication: FOR PAIN 3) ASPIRIN (OTC) TAB,CHEWABLE 81MG PO QDAILY ACTIVE Indication: FOR CARDIOVASCULAR DISEASE 4) AZELASTINE INHL,NASAL 1 SPRAY NASAL BID bottle sent 01/30 ACTIVE Indication: FOR ALLERGIC RHINITIS 5) CALCIUM/VITAMIN D (OTC) TAB 1 TABLET PO BID ACTIVE Indication: FOR CALCIUM SUPPLEMENTATION 6) ENOXAPARIN INJ 40MG/0.4ML SQ QDAILY ACTIVE Indication: FOR ANTICOAGULATION 7) FLUTICASONE SOLN,NASAL 50MCG/1SPRAY NASAL QDAILY SENT 01/30 ACTIVE Indication: FOR CHRONIC RHINOSINUSITIS 8) FUROSEMIDE TAB 80MG PO QAM DIURETIC ACTIVE Indication: FOR FLUID RETENTION (EDEMA) 9) GABAPENTIN (LOWER DOSE) CAP,ORAL 100MG PO BID ACTIVE Indication: FOR PAIN 10) LACTULOSE 10G/15ML SOLN,ORAL 10GM/15ML PO NOW Titrate to 3-5 ACTIVE BMs per day Indication: FOR CONSTIPATION 11) LACTULOSE 10G/15ML SOLN,ORAL 10GM/15ML PO Q6H PRN Titrate to ACTIVE 3-5 BMs per day Indication: FOR CONSTIPATION 12) METOPROLOL TARTRATE (IMMEDIATE 25MG PO BID ACTIVE Indication: FOR HIGH BLOOD PRESSURE 13) OLODATEROL/TIOTROPIUM INHL,ORAL 2 PUFFS ORAL INHL QDAILY ACTIVE INHALER SENT 01/30 Indication: FOR COPD 14) OXYCODONE (UD) 5MG/5ML SOLN,ORAL 2.5MG/2.5ML PO Q4H PRN 2nd ACTIVE line for pain abdominal cramps Indication: FOR ACUTE PAIN 15) PANCRELIPASE (CREON) 962805/86670/ 2 CAPSULES PO TID AC ACTIVE Indication: FOR PANCREATIC INSUFFICIENCY 16) PANTOPRAZOLE TAB,EC 40MG PO NOW ACTIVE Indication: LUQ PAIN 17) PANTOPRAZOLE TAB,EC 40MG PO QAM ACTIVE Indication: LUQ PAIN 18) RIFAXIMIN TAB 550MG PO BID ACTIVE Indication: FOR HEPATIC ENCEPHALOPATHY 19) SIMETHICONE TAB,CHEWABLE 80MG PO QID PRN PRN GAS DISCOMFORT ACTIVE Indication: FOR GAS DISCOMFORT LABS: WBC:6.4 10*3/uL (01/30/25 04:00) HGB:HGB 11.1 L g/dL 01/30/2025 04:00 HCT:33.8 % L (01/30/25 04:00) PLATLETS:PLT 126 L 10*3/uL 01/30/2025 04:00 ALBUMIN 3.2 L g/dL 01/30/2025 04:00 PRE-ALBUMIN: No PREALBUMIN data found CHOLESTEROL 140 mg/dL 08/19/2023 11:39 TOTAL PROTEIN:PROTEIN 6.4 g/dL 01/30/2025 04:00 HGA1C 5.4 % 08/19/2023 11:39 GLUCOSE:GLUCOSE 106 H mg/dL 01/30/2025 04:00 BUN:26.9 mg/dL H (01/30/25 04:00) CREATININE 1.25 mg/dL 01/30/2025 04:00 CRP:0 No SED RAT (STL-PB) data found PRIOR CULTURES: NO ORGANISMS SEEN (01/19/25 11:12) TESTING: HT:71 in [180.3 cm] (01/18/2025 09:19) BMI:23.2 WT HISTORY: Patient Weight History - Last Four 1. 166.0 lbs. / 75.3 kg. on JAN 30, 2025@08:44:25 2. 185.0 lbs. / 83.9 kg. on JAN 18, 2025@09:19:32 3. 180.3 lbs. / 81.8 kg. on DEC 20, 2024@10:23:19 4. 176.0 lbs. / 79.8 kg. on DEC 11, 2024@13:39:21 CURRENT JACE SCALE: No data available for: Jace Scale Current Diet: Low Sodium (01/30/25) RECENT VITAL SIGNS: BP: 130/72 P: 77 R: 15 WT: 166 T: 98.1 HT: 99% (01/30/2025 07:19) PHYSICAL ASSESSMENT: GENERAL: nad RESP: even and unlabored on room air VASCULAR: Popliteal pulse palpable GI/: continent of bowel and bladder SKIN: see detailed below ULCER ASSESSMENT: Wound Care Nurse is familiar with this patient. WCN has cared for this patient during past admissions. Patient presents with healing Stage 3 PI to Left BKA site. Patient denies pain at this time. Ulcer looks improved since last assessment. Ulcer is more shallow and has less biofilm present. Patient revealed no dressings have been placed on wound and he has no orders or recommendations for home care. LOCATION: Left Medial BKA TYPE: Pressure STAGE/DEPTH: Healing Stage 3 / Partial Thickness HEALING PHASE: Proliferative DISCOMFORT: 1-10 scale= 0/10 TYPE OF DISCOMFORT: INTERVENTION: SIZE: L= 1.4cm, W= 1.3cm, D= 0.1cm UNDERMINING: None - resolved since last assessment TUNNELING/SINUS TRACT: None ULCER BED: Pale red granulation ESCHAR/SLOUGH: minute / biofilm present EDGES: intact and less epibole present since last assessment PERIWOUND: erythema, edema EXUDATE: scant serous ODOR: None TREATMENT THIS VISIT: assessed, photographed and dressed. APPEARANCE OF ULCER/PERIWOUND FOLLOWING TREATMENT THIS VISIT: improving PATIENT TEACHING: One to one counseling/education with patient was provided concerning wound etiology, wound treatments, wound healing process, mobility/behavior modification, prevention Patient acknowledged understanding of education provided. Reinforcements needed. RECOMMENDED EVALUATIONS/TESTING: Patient would benefit from Crocheter consult for Albumin and electrolytes are low. Patient would benefit from imaging (Xray) if this wound does not improve significantly to rule out underlying bone infection. Patient will need to follow up with Wound Care Nurse after discharge. GOALS FOR TREATMENT: Removal of necrotic tissue, develop/maintain moist healing environment supporting the production of granulation tissue progressing towards re-epithelialization of the affected area. Maintain the integrity of the courtney-wound, and reduce overall pressure load to the affected area. RECOMMENDED TREATMENT TO ACHIEVE GOALS: Pressure ulcer prevention and treatment including specialty mattresses. Max 2 layers (1 incontinence pad + flat sheet or AirTAP system) to be placed onto specialty mattress. Offload heels and pressure areas. Nursing to remind patient to reposition-turn every two hours while in bed. Nursing to complete pressure relief while up in a chair/ wheelchair (20 to 90 seconds every 15 to 30 minutes). Adequate nutritional intake and hydration, daily RN whole-body skin assessment/ Appropriate and timely wound care performed by staff RNs. RECOMMENDATIONS FOR WOUND CARE ORDERS: Left BKA stage 3 PI: Cleanse with saline. Pat dry. Apply piece of Marquita to wound bed and moistened with saline to activate Marquita. Cover with Aqucel bordered foam. Apply addiction social worker. Change daily. Call Marino ROCK, at [phone] for questions or concerns. Notify primary care provider as soon as possible if signs of wound deterioration noted. PHOTOGRAPHS WILL BE UPLOADED IN [facility] IMAGING TIME SPENT WITH PATIENT FACE TO FACE: [X] 20-30 minutes [ ] 40-50 minutes [ ] 60-90 minutes /zachary/ LILI SEAY, RN, CWCN REGISTERED NURSE Signed: 01/30/2025 09:28 Receipt Acknowledged By: 01/30/2025 10:37 /es/ IZZY STORY CIRCULATING NURSE 01/30/2025 10:22 /es/ SORAYA FLORES MD Staff Physician - Allergy & Immunology NASEEM NULL [facility] Jan 30, 2025 08:42 AM NURSING INPATIENT NOTE: LOCAL TITLE: ALAES NURSING FREQUENT DOCUMENTATION STANDARD TITLE: NURSING INPATIENT NOTE DATE OF NOTE: JAN 30, 2025@08:42 ENTRY DATE: JAN 30, 2025@08:43:02 AUTHOR: MAINE RING COSIGNER: URGENCY: STATUS: COMPLETED Version 2.4 Charting in accordance with [place] APPROVED AGUA CALIENTE STANDARD (ALAES) ACUTE INPATIENT/REHABILITATION NURSING ADMISSION SCREENING, ASSESSMENT, AND STANDARDS OF CARE ======== NATIONAL EARLY WARNING SCORE (NEWS) ======== The vital signs below were used for scoring: Temperature: 98.1 Pulse: 78 Blood Pressure: 130/72 Respiration: 20 Pulse Oximetry: 99 The NEWS total is 0. 1. Temperature (C/F): Score = 0 36.1 [...] Alert Patient Status: Remains on unit /es/ MAINE SUTHERLAND RN REGISTERED NURSE Signed: 01/30/2025 08:44 MAINE RING [facility] Jan 30, 2025 08:41 AM NURSING INPATIENT NOTE: LOCAL TITLE: [facility] NURSING FREQUENT DOCUMENTATION STANDARD TITLE: NURSING INPATIENT NOTE DATE OF NOTE: JAN 30, 2025@08:41 ENTRY DATE: JAN 30, 2025@08:41:25 AUTHOR: RANJITH EMIGNER: URGENCY: STATUS: COMPLETED Version 2.4 Charting in accordance with [place] APPROVED AGUA CALIENTE STANDARD (ALAES) ACUTE INPATIENT/REHABILITATION NURSING ADMISSION SCREENING, ASSESSMENT, AND STANDARDS OF CARE ======== ACTIVITIES OF DAILY LIVING ======== Hygiene ADLs: Dressing: Upper Body: Independent Lower Body: Independent Eating: Independent Foot Care: Inspection Comment: [facility] Hand Hygiene: Performed post toileting Performed pre meals/snacks Oral Care: Non-ventilator patient: Patient teeth brushed: Independently Supplies given The was educated that poor oral hygiene increases the risk of hospital acquired pneumonia and dental problems like gingivitis and tooth decay. [place] was educated using their preferred method and verbalized understanding. Pericare: Independent Personal Care: Independent ========= ACTIVITY/MOBILIZATION ========= Mobility Status: Independent: Able to stand and step without staff assistance Equipment utilized: Prosthetic limb: Gait: [facility] - Highest Level of Mobility achieved this shift: 6 - Walked 10 steps or more [facility] ======== ENVIRONMENTAL SAFETY MANAGEMENT ======== Implemented safety standards of care: -Villalba to unit & environment -Adequate room lighting -Bed in low and locked position -Call light within reach -Personal items within reach -Traffic path in room free of clutter -Non-slip footwear -Upper/half length side rails up for bed mobility -Sensory aids within reach -Encourage patient to utilize sensory support Additional safety measures: Increased frequency of rounding Other: Fall precautions ======== GASTROINTESTINAL ======== No bowel movement reported by patient Elimination: Continent ======== GENITOURINARY ======== Elimination: Continent ========= ORAL INTAKE (PERCENTAGE OF MEAL EATEN) ========= Breakfast: 26% - 50% ========= Pain ========= DVPRS Scale Location: [facility] Pain Rating Scale (DVPRS): 7 Focus of attention, prevents doing daily activities Pain Score: 7 Patient's acceptable pain goal: 7 Focus of attention, prevents doing daily activities Pain Interventions: /es/ RANJITH EM CNA GROUP BILLING COORDINATOR Signed: 01/30/2025 08:46 RANJITH EM [facility] Jan 30, 2025 08:27 AM NURSING TREATMENT PLAN NOTE: LOCAL TITLE: DAFNE PLAN OF CARE STANDARD TITLE: NURSING TREATMENT PLAN NOTE DATE OF NOTE: JAN 30, 2025@08:27 ENTRY DATE: JAN 30, 2025@08:27:14 AUTHOR: MAINE RING EXP COSIGNER: URGENCY: STATUS: COMPLETED DAFNE PLAN OF CARE [...] alteration in skin integrity? Yes related to wound(s) Goals: Prior to discharge, patient will:--Not incur new onset of skin redness, irritation or breakdown during this hospitalization., --Receive appropriate wound care if wounds already exist., --Maintain skin integrity Interventions: --Keep skin clean and dry., --Encourage small, frequent position changes. Patient/caregiver Education: Treatment regimen - purpose and effect including: diet, medications, activity, risk factors, and significant symptoms., causes and prevention of pressure ulcers., importance of changing position frequently for pressure ulcer prevention. Education materials provided: Care plan status: Continued Progress toward goals documented continuously through progress notes Yes. Goals: Prior to discharge, patient will:Not incur new onset of skin redness, irritation or breakdown during this hospitalization, Verbalize understanding of the cause of pressure ulcers/skin breakdown, Verbalize understanding of the prevention of pressure ulcers/skin breakdown, Receive appropriate wound treatment if wounds already exist Interventions & Education: (See Jace scale template) Care plan status: Continued Progress toward goals [...] w/c, use hand rails, ask for assistance) , --Identify factor(s) that may increase risk of fall before discharge, --Maintain or preserve physical mobility during hospital stay Interventions: * Score 45 --Encourage pt to ask for assistance (NSG, ), --Ambulate with walker (if ordered), --Ambulate with assistance, --Keep night light and bathroom light on at night, --Keep wheelchair in locked position, --Check for elimination needs every 2 hours, --Villalba to unit and surroundings (bathroom, call light, etc), --Provide non slip footwear when ambulating (NSG), --Place bed in low position or use low bed Care plan status: Continued Progress toward goals documented continuously through progress notes Patient Education(Nursing,SWS,PT/OT ,School Child Care Attendant,Senior Project Controls Specialist,&Physic chiara) Instruct as to: Does patient have pain and/or chest pain? Yes, Pain NURSING DIAGNOSIS: Alteration in comfort: pain related to ABDOMEN Goals: Prior to discharge, patient will:--Injury due to fall will be minimized during hospital stay, --Verbalize safety measures to lower risk of fall/injury (lock w/c, use hand rails, ask for assistance) , --Identify factor(s) that may increase risk of [...] order, --Assess pain characteristics and probable , cause(s) i.e. intensity, location, pain , level on scale 1-10.(Nursing,Physicians), --Monitor need for and evaluate patient's , response to pain medication Qhr.(Nursing,Physicians) Care plan status: Continued Progress toward goals documented continuously through progress notes Patient education: --Normal function and disease process., --Treatment regimen-purpose and effect including: Diet, medications, activity, risk factors, and significant symptoms. /zachary/ MAINE SUTHERLAND RN REGISTERED NURSE Signed: 01/30/2025 08:30 01/31/2025 ADDENDUM STATUS: COMPLETED The Nursing Care Plan has been reviewed. Progress on the Goals/Outcomes is as follows: Discharge Planning: Assessment of patient/family's ability to manage care requirement post-discharge: Need identified at this time for referrals/resources post-discharge: UNCERTAIN Comment: no change /zachary/ NIKOLAY NAVARRETE RN, BSN REGISTERED NURSE Signed: 01/31/2025 02:33 MAINE RING [facility] Jan 30, 2025 08:22 AM NURSING NOTE: LOCAL TITLE: [facility] PERSONAL EFFECTS [facility] STANDARD TITLE: NURSING NOTE DATE OF NOTE: JAN 30, 2025@08:22 ENTRY DATE: JAN 30, 2025@08:23:03 AUTHOR: MAINE RING EXP COSIGNER: URGENCY: STATUS: COMPLETED PERSONAL EFFECTS Hazardous Check: Advised of prohibited hazardous items, Denies hazardous items, No hazardous items observed SMALL POCKET KNIFE Medication Check: Denies medication on person Prosthetic Check: Glasses, Artifical Limbs [facility] Personal Items: Patient/Family advised that [facility] not responsible for loss of any personal effects or valuables. Patient Funds Disposition: [place]ALLET $45.00 Patient Valuables Observed: PROSTETIC LIMB GLASSES PHONE RING SUSPENDERS WEATHERS SHIRT BLUE JEANS SOCKS SHOES /zachary/ MAINE SUTHERLAND RN REGISTERED NURSE Signed: 01/30/2025 08:27 MAINE RING [facility] Jan 30, 2025 08:20 AM NURSING NOTE: LOCAL TITLE: [facility] SKIN INSPECTION/ASSESSMENT STANDARD TITLE: NURSING NOTE DATE OF NOTE: JAN 30, 2025@08:20 ENTRY DATE: JAN 30, 2025@08:20:24 AUTHOR: MAINE RING EXP COSIGNER: URGENCY: STATUS: COMPLETED Assessment Type: INITIAL SKIN INSPECTION/ASSESSMENT Skin Inspection: Skin Color: Usual for ethnicity Skin Tempature: Warm Skin Moisture: Normal Skin Turgor: Elastic (normal) Jace Skin Assessment: The patient's Jace Scale Score is 21. The patient is considered not at risk for development of pressure ulcers/injuries. Sensory perception -- ability to respond meaningfully to pressure-related discomfort No impairment. Moisture -- degree to which skin is exposed to moisture Rarely moist. Activity -- ability to change and control body position Walks frequently. Mobility -- ability to change and control body position No limitation. Nutrition -- usual food intake patterns Adequate. Friction and shear Potential problem. INTERVENTIONS: The pressure injury interventions were not needed - patient/resident is not at risk. RISK FACTORS THAT INCREASE RISK FOR DEVELOPING PRESSURE INJURIES: The patient/resident has the following: Age over 75 Amputee: Comment: [facility] SKIN ALTERATIONS: Wound Documentation from the past year: Skin Assessment 01/20/2025 Skin Integrity - Wound 01/19/2025 Skin Integrity - Wound L AKA 01/18/2025 Skin Integrity - Wound medial aspect of L AKA Wound - other than pressure ulcer/injury (includes open surgical wounds/incisions): Location: MEDIAL ASPECT OF [facility] No Edema Wound drainage none. /zachary/ MAINE SUTHERLAND RN REGISTERED NURSE Signed: 01/30/2025 08:22 MAINE RING [facility] Jan 30, 2025 08:12 AM NURSING INPATIENT NOTE: LOCAL TITLE: [facility] ACUTE INPATIENT NSG SHIFT ASSESSMENT STANDARD TITLE: NURSING INPATIENT NOTE DATE OF NOTE: JAN 30, 2025@08:12 ENTRY DATE: JAN 30, 2025@08:12:57 AUTHOR: MAINE RING EXP COSIGNER: URGENCY: STATUS: COMPLETED Version 2.2 Charting in accordance with [place] APPROVED AGUA CALIENTE STANDARD (ALAES) ACUTE INPATIENT/REHABILITATION NURSING ADMISSION SCREENING, ASSESSMENT, AND STANDARDS OF CARE ======== ASSESSMENT ======== ======== HANDOFF ======== Bedside report and handoff completed ======== PAIN ASSESSMENT ======== Are you currently experiencing pain? Yes - DVPRS scale used to assess Location: abdomen [facility] Pain Rating Scale (DVPRS): 3 Sometimes distracts me Pain Score: 3 Patient's acceptable pain goal: Are we making progress toward your acceptable pain goal? Yes Primary Pain Assessment: Pain Type: Chronic Describe Pain (Quality): Other: Pain Interventions: Medication, see MAR ======== ZABALA FALL SCALE & TIPS PROGRAM [...] Communicate recent fall or risk of harm Assistance out of bed: Call for assistance before getting out of bed Fall TIPS reviewed with patient: Yes Interventions: Communicate recent fall or risk of harm Assistance out of bed: Call for assistance before getting out of bed ======== ENVIRONMENTAL SAFETY MANAGEMENT ======== Implemented safety standards of care: -Villalba to unit & environment -Adequate room lighting -Bed in low and locked position -Call light within reach -Personal items within reach -Traffic path in room free of clutter -Non-slip footwear -Upper/half length side rails up for bed mobility -Sensory aids within reach -Encourage patient to utilize sensory support Additional safety measures: Increased frequency of rounding ======== NEUROLOGICAL ======== Neurological Orientation: Oriented x4 Level of Consciousness (AVPU): Alert = Appears aware of and responsive to the environment on their own. Follows commands, opens eyes spontaneously, and tracks objects. ======== NEUROMUSCULAR/NEUROVASCULAR EXTREMITIES ASSESSMENT ======== Strength: Director Of Counseling Bilateral: Strong Upper Extremity Bilateral: Full strength Lower Extremity Bilateral: Unequal Lower Extremity Strength: Right: Full strength Left: Amputation present [facility] Sensation: Upper Extremity Sensation Bilateral: Intact Lower Extremity Sensation Bilateral: Unequal Lower Extremity Sensation: Right: Left: Amputation present Temperature: Upper Extremity Temperature Bilateral: Warm Lower Extremity Temperature Bilateral: Unequal Temperature: Right: Warm Left: Amputation present ======== CARDIOVASCULAR ======== Heart Rate/Rhythm (without quality assurance monitor final): Regular Capillary Refill: R Hand: Less than or equal to 3 seconds L Hand: Less than or equal to 3 seconds R Foot: Less than or equal to 3 seconds L Foot: Unable to assess Comment: LBKA Peripheral Pulses: R Radial: 3+ Strong L Radial: 3+ Strong R Dorsalis Pedis: 3+ Strong L Dorsalis Pedis: Unable to assess R Posterior Tibial: L Posterior Tibial: R Popliteal: L Popliteal: Edema: None ======== RESPIRATORY ======== Respirations: Unlabored Pattern: Regular Breath Sounds Auscultated: Anterior and posterior Left Upper Lobe: Clear Right Upper Lobe: Clear Right Middle Lobe: Clear Left Lower Lobe: Clear Right Lower Lobe: Clear ======== GASTROINTESTINAL ======== Last bowel movement: 01/28/2025 Bowel movement reported by patient-unwitnessed Elimination: Continent Abdominal Description: Distended Palpation: Soft, Non-tender Bowel Sounds: RUQ: Active LUQ: Active RLQ: Active LLQ: Active ======== GENITOURINARY ======== Elimination: Continent ======= INTEGUMENTARY/SKIN/WOUND - (INCLUDING JACE) SEE NOTE: VAAES SKIN INPECTION/ASSESSMENT ======= ======== ACTIVITIES OF DAILY LIVING ======== Hygiene ADLs: Oral Care: Non-ventilator patient: Patient teeth brushed: Independently ======== MOBILITY ======== Mobility Status: Independent: Able to stand and step without staff assistance Steady standing balance Equipment utilized: Prosthetic limb: LEFT Gait: Steady ======== IV LINES ======== Peripheral IV: Present on admission: Line #1: Location: Left, Antecubital Gauge: 20 ======== PSYCHOSOCIAL ======== Type of Emotional Support Provided: 1:1 discussion, Treatment discussion, Ventilation of feelings encouraged /zachary/ MAINE SUTHERLAND RN REGISTERED NURSE Signed: 01/30/2025 08:20 MAINE RING [facility] Jan 30, 2025 07:58 AM NURSING ADMISSION EVALUATION NOTE: LOCAL TITLE: VAAES ACUTE INPATIENT NSG ADMISSION SCREEN STANDARD TITLE: NURSING ADMISSION EVALUATION NOTE DATE OF NOTE: JAN 30, 2025@07:58 ENTRY DATE: JAN 30, 2025@07:58:27 AUTHOR: MAINE RING EXP COSIGNER: URGENCY: STATUS: COMPLETED ======= ALLERGY/ADVERSE DRUG REACTION (ADR) REVIEW (MRT5) ======= FACILITY ALLERGY/ADR -------- No Remote Allergy/ADR Data available for this patient [facility] OXYBUTYNIN CHLORIDE [facility] SULFA DRUGS Allergy/Adverse Drug Reaction Review to be conducted by: Nurse: Results of Allergy/ADR Review: Allergy/Adverse Drug Reaction list confirmed. ====== MEDICATION REVIEW (MRR1) ====== Did patient bring medication(s) from home? No Medication Review conducted by Nurse Results of Medication Review: Active Medication List: INCLUDED IN THIS LIST: Alphabetical list of active outpatient prescriptions dispensed from this [facility] (local) and dispensed from another VA or DoD facility (remote) as well as inpatient orders (local pending and active), local clinic medications, locally documented non-VA medications, and local prescriptions that have or been discontinued in the past 90 days. Non-VA Meds Last Documented On: Aug 17, 2024 NOTE The display of VA prescriptions dispensed from another VA or DoD facility (remote) is limited to active outpatient prescription entries matched to National Drug File at the originating site and may not include some items such as investigational drugs, compounds, etc. NOT INCLUDED IN THIS LIST: Medications self-entered by the patient into personal health records (i.e. [place]) are NOT included in this list. Non-VA medications documented outside this VA, remote inpatient orders (regardless of status) and remote clinic medications are NOT included in this list. The patient and provider must always discuss medications the patient is taking, regardless of where the medication was dispensed or obtained. INPT ACETAMINOPHEN 500MG TAB (Status=Active) 500MG BY MOUTH NOW CARY 1st line for pain Do not exceed 2g per day Indication: FOR PAIN INPT ACETAMINOPHEN 500MG TAB (Status=Active)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 bl hip fracture, OP Endo following - Fall precautions # COPD: Continue home Stiolto # Allergic rhinitis: Continue home azelastine, fluticasone # GERD: Continue home pantoprazole 40 mg qAM # MDD: Continue home escitalopram 10 mg daily # RIOS: Does not use CPAP; declined use inpatient # BPH: LUTS controlled; off finasteride 2/2 gynecomastia # Mild cognitive impairment # PE: Remote hx 2/2 COVID, not on AC 2/2 hemoptysis Inpatient Checklist - Diet: low sodium, Ensure - DVT ppx: lovenox - Bowel reg: sennosides - Renee: none - Code status: Full code - NOK: TOM Reinoso Baires - Dispo: prior assisted living facility Is [...] questions. Total time spent: 60 Minutes /zachary/ IZZY STORY CIRCULATING NURSE Signed: 01/30/2025 10:36 /zachary/ SORAYA FLORES MD Staff Physician - Allergy & Immunology Cosigned: 01/30/2025 16:13 01/30/2025 ADDENDUM STATUS: COMPLETED I have seen and examined the patient on Jan. I agree with the history, exam, and assessment/plan as discussed with and documented in the internal medicine resident's note. 79 year old male with decompensated cirrhosis, COPD not on home oxygen, and Left BKA who presents with acute on chronic abdominal pain. Recently hospitalized 01/18-01/20 with large volume ascites needing paracentesis. Also discharged on lactulose but ran out recently. No increased confusion, nausea, hematemesis, or melena. Exam: AF, VSS. NAD. NCAT, PERRLA, EOMI. Anicteric sclerae. RRR. CTA. Soft, +BS, positive fluid wave, umbilical hernia that is reducible. Diagnostics: No leukocytosis, stable thrombocytopenia. CMP with mild hyponatremia, mild AMBAR, mild metabolic acidosis, and stable transaminitis. # Acute on chronic decompensated cirrhosis: Unclear trigger. Was told to adhere to low Na diet at last discharge. Has had some issues with running out of amiloride so question of non-adherence. No current encephalopathy and no leukocytosis suspicious for SBP. He has a tappable pocket so an LVP was performed with ~2.6L removed. Sample sent for cell count. Will optimize diuretics and beta-ave. # AMBAR: Likely secondary to hypervolemia. Will assess after LVP. # Left BKA: Wound noted during last admission. Wound consult now. Agree with hostess assessment: LOCATION: Left Medial BKA TYPE: Pressure STAGE/DEPTH: Healing Stage 3 / Partial Thickness HEALING PHASE: Proliferative DISCOMFORT: 1-10 scale= 0/10 TYPE OF DISCOMFORT: INTERVENTION: SIZE: L= 1.4cm, W= 1.3cm, D= 0.1cm UNDERMINING: None - resolved since last assessment TUNNELING/SINUS TRACT: None ULCER BED: Pale red granulation ESCHAR/SLOUGH: minute / biofilm present EDGES: intact and less epibole present since last assessment PERIWOUND: erythema, edema EXUDATE: scant serous ODOR: None Rest of plan per resident's note /zachary/ SORAYA FLORES MD Staff Physician - Allergy & Immunology Signed: 01/30/2025 16:22 02/06/2025 ADDENDUM STATUS: COMPLETED MALNUTRITION - present on admission Based on the ASPEN/AND malnutrition diagnosis guide (with = or > 2 indicators present), the following clinical characteristics support a diagnosis of: Moderate protein-calorie malnutrition in the context of: Chronic illness as evidenced by: Insufficient energy intake < 75% of estimated energy requirement for = or > 1 month Mild loss of muscle mass Mild loss of subcutaneous fat /zachary/ SORAYA FLORES MD Staff Physician - Allergy & Immunology Signed: 02/06/2025 08:48 IZZY STORY [facility]
--- OUTSIDE RECORDS SUMMARY | 2025-01-30 07:37 | XMS_ITS | Encounter Summary ---
Author Name [facility] [facility] [place] [facility] [place] Address [address] [place] [address] Care Team Providers Care Commercial Relief Driver Name Role Phone TRUMAN GONZALEZ Primary Care [...] section includes the information on record at [place] for the Encounter. 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 Date/Time Primary/Secondary Diagnosis Diagnosis Name Provider Source Jan 30, 2025 01:23 PM PRIMARY Other alf (current) drug therapy ELIZABETH WASHBURN [facility] Jan 30, 2025 01:23 PM SECONDARY Alcoholic cirrhosis of liver without ascites ELIZABETH WASHBURN [facility] Plan of Treatment: Future Appointments (+ 6 months) and Future Tests (+/- 45 days) The Plan of Treatment section includes future care activities for the patient from [facility] [place] [facility] This section includes future appointments and future orders which are active, pending or scheduled. Future Appointments This section includes appointments that were scheduled to occur 6 months from the date of the Encounter, up to a maximum of 20 appointments. The data comes from all [facility]. Appointment Date/Time Appointment Type Appointme nt Facility Name Feb 01, 2025 03:30 PM AMBULATORY - MEDICINE [facility] Mar 01, 2025 01:00 PM AMBULATORY - REHAB MEDICIN E [facility] Mar 14, 2025 10:15 AM AMBULATORY - MEDICINE [facility] May 03, 2025 10:45 AM AMBULATORY - SURGERY [facility] May 03, 2025 01:00 PM AMBULATORY - SURGERY [facility] Active, Pending, and Scheduled Orders This section includes a listing of several types of active, pending, and scheduled orders, including clinic medications orders, diagnostic test orders, procedure orders and consult orders; where the start date of the order is 45 days before the date of the Encounter or 45 days after the date of theEncounter. The data comes from all [facility]. Test Date/Time Test Type Test Details Facility Name Jan 19, 2025 11:34 AM Consult Order OT OUTPATI ENT CONSULT ST[facility] Cons Store Clerk Checker's Choice [facility] Lab Results: +/- 30 days of the encounter This section includes the Chemistry and Hematology Lab Results on record with [place] for the patient. Radiology Reports and Pathology Reports are provided separately, in subsequent sections. Lab Results This section contains the Chemistry/Hematology Results that were resulted 30 days before or 30 daysafter the date of the Encounter. Date/Time Source Result Type Result - Unit Interpretation Reference Range Specimen Type Comment Jan 31, 2025 02:[address] [facility] MAGNESIUM PLASMA Specimen Type: PLASMA Comment: No hemolysis noted. Ordering Provider: JOHNATHAN STEEN Report Released Date/Time: Jan 30, 2025 07:25 AM Reporting Lab: [address] [address] Performing Lab: [facility] [address] [facility] [address] MAGNESIUM 2.0 mg/dL 1.6-2.6 Jan 31, 2025 02:[address] [facility] PHOSPHOROUS PLASMA Specimen Type: PLASM A Comment: No hemolysis noted. Ordering Provider: JOHNATHAN STEEN Report Released Date/Time: Jan 30, 2025 07:25 AM Reporting Lab: [address] [address] Performing Lab: [address] [address] PHOSPHOROUS 2.6 mg/dL 2.3-4.7 Jan 31, 2025 02:[address] [facility] COMPREHENSIVE METABOLIC PANEL PLASMA Specimen Type: PLASMA Comment: No hemolysis noted. Ordering Provider: JOHNATHAN STEEN Report Released Date/Time: Jan 30, 2025 07:25 AM Reporting Lab: [address] [address] Performing Lab: [address] [address] CREATININE 1.07 mg/dL 0.7-1.3 UREA NITROGEN 24.7 [...] 71.5 >60 Jan 31, 2025 02:14 PM [facility] CBC BLOOD Specimen Type: BLOOD No comment entered. Ordering Provider: JOHNATHAN STEEN Report Released Date/Time: Jan 30, 2025 07:25 AM Reporting Lab: [facility] [address] [facility] [address] Performing Lab: [address] [address] WBC 7.5 10*3/uL 3.6-11.2 RBC 4.32 10*6/uL [...] Jan 30, 2025 04:[address] [facility] CELL COUNT BODY FLUIDS (STL) PERITONEAL FL. Specimen T ype: PERITONEAL FL. No comment entered. Ordering Provider: BALTA BARR Report Released Date/Time: Jan 30, 2025 03:49 PM Reporting Lab: [place] [address] [address] [facility] [address] Performing Lab: [address] [address] MESOTHELIAL 12 GROSS APPEARANCE YELLOW/HAZY FL SEGS 6 FL LYMPHS 48 FL MACROPHAGES 34 FL NUCLEATED CELLS 97 /uL 0-500 RBC FL 561 /uL Jan 30, 2025 04:[address] [facility] MRSA SURVL NARES DNA NARES Specimen Type: [...] 30, 2025 07:25 AM Reporting Lab: [facility] [address] [facility] [address] Performing Lab: [facility] [address] [facility] [address] MRSA SURVL NARES DNA Negative Negative Jan 30, 2025 02:[address] [facility] MAGNESIUM PLASMA Specimen Type: PLASM A Comment: No hemolysis noted. Ordering Provider: JOHNATHAN STEEN Report Released Date/Time: Jan 30, 2025 07:25 AM Reporting Lab: [facility] [address] [facility] [address] Performing Lab: [facility] [address] [facility] [address] MAGNESIUM 2.0 mg/dL 1.6-2.6 Jan 30, 2025 02:[address] [facility] PHOSPHOROUS PLASMA Specimen Type: PLASM A Comment: No hemolysis noted. Ordering Provider: JOHNATHAN STEEN Report Released Date/Time: Jan 30, 2025 07:25 AM Reporting Lab: [facility] [address] [facility] [address] Performing Lab: [facility] [address] [facility] [address] PHOSPHOROUS 2.8 mg/dL 2.3-4.7 Jan 30, 2025 02:[address] [facility] PT/INR NEW (STL-MA) PLASMA Specimen Type: PLAS MA No comment entered. Ordering Provider: JOHNATHAN STEEN Report Released Date/Time: Jan 30, 2025 07:26 AM Reporting Lab: [facility] [address] [facility] [address] Performing Lab: [address] [address] PROTIME 14.6 s H 9.4-12.5 INR VALUE 1.3 {INR} Jan 30, 2025 02:[address] [facility] LIPASE PLASMA Specimen Type: PLASM A Comment: No hemolysis noted. Ordering Provider: JOHNATHAN STEEN Report Released Date/Time: Jan 30, 2025 07:26 AM Reporting Lab: [place] [address] [address] [facility] [address] Performing Lab: [place] [phone] LIPASE 60 U/L 8-78 Jan 30, 2025 02:22 PM [facility] CBC BLOOD Specimen Type: BLOOD No comment entered. Ordering Provider: JOHNATHAN STEEN Report Released Date/Time: Jan 30, 2025 07:25 AM Reporting Lab: [place] [address] [address] [facility] [address] Performing Lab: [address] [address] WBC 5.3 10*3/uL 3.6-11.2 RBC 3.77 10*6/uL [...] 10*3/uL 2.10-8.00 Jan 30, 2025 02:[address] [facility] COMPREHENSIVE METABOLIC PANEL PLASMA Specimen Type: PLASMA Comment: No hemolysis noted. Ordering Provider: JOHNATHAN STEEN Report Released Date/Time: Jan 30, 2025 07:25 AM Reporting Lab: [address] [address] Performing Lab: [address] [address] CREATININE 1.17 mg/dL 0.7-1.3 UREA NITROGEN 25.9 [...] (CKD-EPI 2020) 64.2 >60 Jan 30, 2025 04:[address] [facility] COMPREHENSIVE METABOLIC PANEL PLASMA Specimen Type: PLASMA Comment: No hemolysis noted. Ordering Provider: GI ROBERTS Report Released Date/Time: Jan 30, 2025 04:06 AM Reporting Lab: [address] [address] Performing Lab: [address] [address] CREATININE 1.25 mg/dL 0.7-1.3 UREA NITROGEN 26.9 [...] 59.3 >60 Jan 30, 2025 04:00 AM [facility] CBC BLOOD Specimen Type: BLOOD No comment entered. Ordering Provider: GI ROBERTS Report Released Date/Time: Jan 30, 2025 04:06 AM Reporting Lab: [facility] [address] [facility] [address] Performing Lab: [place] [address] [facility] [address] WBC 6.4 10*3/uL 3.6-11.2 RBC 3.99 10*6/uL [...] Jan 19, 2025 08:[address] [facility] COMPREHENSIVE METABOLIC PANEL PLASMA Specimen Type: PLASMA Comment: No hemolysis noted. Ordering Provider: BALTA BARR Report Released Date/Time: Jan 18, 2025 07:27 PM Reporting Lab: [address] [address] Performing Lab: [address] [address] CREATININE 1.08 mg/dL 0.7-1.3 UREA NITROGEN 22.3 [...] 70.7 >60 Jan 19, 2025 08:15 PM [facility] CBC BLOOD Specimen Type: BLOOD No comment entered. Ordering Provider: BALTA BARR Report Released Date/Time: Jan 18, 2025 07:27 PM Reporting Lab: [address] [address] Performing Lab: [address] [address] WBC 5.8 10*3/uL 3.6-11.2 RBC 3.87 10*6/uL [...] Jan 19, 2025 11:[address] [facility] CELL COUNT BODY FLUIDS (STL) PERITONEAL FL. Specimen T ype: PERITONEAL FL. No comment entered. Ordering Provider: ELIJAH LOZANO Report Released Date/Time: Jan 17, 2025 02:19 PM Reporting Lab: [address] [address] Performing Lab: [address] [address] MESOTHELIAL 2 GROSS APPEARANCE yellow/hazy FL SEGS 28 FL LYMPHS 34 FL MACROPHAGES 15 FL MONOCYTES 21 FL NUCLEATED CELLS 195 /uL 0-500 RBC FL 329 /uL Jan 18, 2025 08:[address] [facility] MRSA SURVL NARES DNA NARES Specimen Type: [...] Jan 18, 2025 07:27 PM Reporting Lab: [address] [address] Performing Lab: [address] [address] MRSA SURVL NARES DNA Negative Negative Jan 18, 2025 08:[address] [facility] COMPREHENSIVE METABOLIC PANEL PLASMA Specimen Type: PLASMA Comment: No hemolysis noted. Ordering Provider: BALTA BARR Report Released Date/Time: Jan 18, 2025 07:27 PM Reporting Lab: [address] [address] Performing Lab: [address] [address] CREATININE 0.98 mg/dL 0.7-1.3 UREA NITROGEN 19.8 [...] 79.4 >60 Jan 18, 2025 08:11 PM [facility] CBC BLOOD Specimen Type: BLOOD No comment entered. Ordering Provider: BALTA BARR Report Released Date/Time: Jan 18, 2025 07:27 PM Reporting Lab: [address] [address] Performing Lab: [address] [address] WBC 5.1 10*3/uL 3.6-11.2 RBC 4.14 10*6/uL [...] Jan 18, 2025 02:[address] [facility] AMMONIA (STL-MA) PLASMA Specimen Type: PLASM A No comment entered. Ordering Provider: BRET PRINCE Report Released Date/Time: Jan 18, 2025 02:17 PM Reporting Lab: [place] [id number] [facility] [address] Performing Lab: [address] [address] AMMONIA (STL-MA) 35 umol/L 13.5-35 Jan 18, 2025 11:[address] [facility] LIPASE PLASMA Specimen Type: PLASM A Comment: Aspartate Transaminase result may show positive bias due to hemolysis. K result canceled due to hemolysis. Specimen moderately hemolyzed. potassium Cancelled due to moderate hemolysis. Notified yvrose caro rn @1322 01/18/25 reg Ordering Provider: PRESTON JONES Report Released Date/Time: Jan 18, 2025 11:49 AM Reporting Lab: [address] [address] Performing Lab: [address] [place] [address] LIPASE 31 U/L 8-78 Jan 18, 2025 11:[address] [facility] PT/INR NEW (STL-MA) PLASMA Specimen Type: PLAS MA No comment entered. Ordering Provider: PRESTON JONES Report Released Date/Time: Jan 18, 2025 11:49 AM Reporting Lab: [address] [address] Performing Lab: [address] [address] PROTIME 14.2 s H 9.4-12.5 INR VALUE 1.3 {INR} Jan 18, 2025 11:[address] [facility] BRAIN NATRIURETIC PEPTIDE PLASMA Specimen Type : PLASMA No comment entered. Ordering Provider: PRESTON JONES Report Released Date/Time: Jan 18, 2025 11:49 AM Reporting Lab: [address] [address] Performing Lab: [address] [address] BRAIN NATRIURETIC PEPTIDE 366.8 pg/mL H 0- 100 Jan 18, 2025 11:[address] [facility] COMPREHENSIVE METABOLIC PANEL PLASMA Specimen Type: PLASMA Comment: Aspartate Transaminase result may show positive bias due to hemolysis. K result canceled due to hemolysis. Specimen moderately hemolyzed. potassium Cancelled due to moderate hemolysis. Notified yvrose caro rn @1329 01/18/25 reg Ordering Provider: PRESTON JONES Report Released Date/Time: Jan 18, 2025 11:49 AM Reporting Lab: [address] [address] Performing Lab: [address] [address] CREATININE 0.99 mg/dL 0.7-1.3 UREA NITROGEN 21.3 [...] Jan 18, 2025 11:[address] [facility] TROPONIN I (STL) PLASMA Specimen Type: PLASM A Comment: Aspartate Transaminase result may show positive bias due to hemolysis. K result canceled due to hemolysis. Specimen moderately hemolyzed. Ordering Provider: PRESTON JONES Report Released Date/Time: Jan 18, 2025 11:49 AM Reporting Lab: [address] [address] Performing Lab: [address] [address] TROPONIN I (STL) 0.032 ng/mL 0-0.033 Jan 18, 2025 11:50 AM [facility] CBC BLOOD Specimen Type: BLOOD No comment entered. Ordering Provider: PRESTON JONES Report Released Date/Time: Jan 18, 2025 11:49 AM Reporting Lab: [address] [address] Performing Lab: [address] [address] WBC 6.8 10*3/uL 3.6-11.2 RBC 4.06 10*6/uL [...] Source Jan 30, 2025 09:03 PM 7 [facility] Jan 30, 2025 08:59 PM 7 [facility] Jan 30, 2025 08:38 PM 98.3 F 77 /min 113/68 mm[Hg] 18 /min 92 % 8 [facility] Jan 30, 2025 11:49 AM 2 [facility] Jan 30, 2025 09:52 AM 9 [facility] Social History: Smoking Status (Most current) and Tobacco Use (All prior to encounter date) This section includes the most current, and the historical, smoking and tobacco- related health factors from the [place] facility where the Encounter took place. Current Smoking Status This section includes the most current smoking, or tobacco-related health factor, from the [place] facility where the Encounter took place. Date/Time Current Smoking Status Comment Facil arlyn Nov 12, 2020 05:09 PM ORYX ADMIT TOBACCO SCREEN NO [facility] Tobacco Use History This section includes a history of the smoking, or tobacco-related health factors, that were collected on or before the date of the Encounter. The data comes from the [place] facility where the Encounter took place. Date/Time Smoking Status/Tobacco Use Comment F acility November 08, 2018 11:16 AM VA-TOBACCO FORMER USER [facility] November 08, 2018 11:16 AM VA-TOBACCO QUIT < [address] [facility] Jul 30, 2016 03:10 PM QUIT TOBACCO IN TH E LAST [address] [facility] November 10, 2011 10:27 PM QUIT TOBACCO >12 M O & <7 YRS AGO [facility] Dec 28, 2005 08:38 AM CURRENT NON-TOBACC O USER-HX OF USE [facility] Dec 28, 2005 08:38 AM TOBACCO TERMINATION STAGE [facility] Jun 23, 2005 12:42 PM CURRENT TOBACCO USER [facility] Jun 23, 2005 12:42 PM SMOKER 1-2 [facility] Advance Directives: All historical and current Section Date Range: From patient's date of to the date document was created. This section includes ALL of a patient's completed or amended [place] Advance and Rescinded Directives. The entries below indicate that a directive exists for the patient, but an actual copy is not included with this document. The data comes from all [facility]. Date Advance Directives Provider Source Nov 17, 2022 ADVANCE DIRECTIVE MOISES ADHIKARI [facility] Jun 12, 2020 STATE-AUTHORIZED POR TABLE ORDERS ANNE CHATTERJEE [facility] October 21, 2018 RESCINDED ADVANCE DIRECTIVE SHERIF BETANCOURT [facility] November 12, 2011 ADVANCE DIRECTIVE DISCUSSION LIA JUAREZ [facility] Radiology Reports: +/- 30 days of the [...] the Encounter. The data comes from all [place] treatment facilities. Date/Time Radiology Report Provider Source Jan 19, 2025 10:59 AM ABDOMINAL PARACENT ESIS WITH IMAGE GUIDANCE: NEISHA LUND [id number] -1945 M Exm Date: JAN 19, 2025@10:59 Req Phys: GHANSHYAM HELLER Loc: 5-C PCU-[place]/01-19-2025@17:23 [place] Loc: [place]-ANGIO/INTERVENTIONAL Service: [id number] SERVICE [address] [address] (Case [id number] COMPLETE) ABDOMINAL PARACENTESIS WITH IMAGE(ANI Detailed) CPT:98239 Reason for Study: 79 M with ascites and abdominal discomfort Clinical History: Report Status: Verified Date Reported: JAN 19, 2025 Date Verified: JAN 19, 2025 Sales And Marketing Assistant E-Sig:/ES/Ghanshyam Heller MD Report: CASE # [id number] HISTORY: 79 M with ESLD, ascites, abdominal [...] was given with lidocaine 1%. A 5 Surinamese One-Step coaxial needle system was advanced into [...] Interpreting Staff: Ghanshyam Heller MD, Interventional Radiologist (Sales And Marketing Assistant) /GHANSHYMA ALEXANDER [facility] Jan 18, 2025 02:[address] ABD PEL W/CONT & 3D: NEISHA LUND [id number] -1945 M Exm Date: JAN 18, 2025@14:58 Req Phys: BRET PRINCE Loc: [place]-EMERGENCY DEPT 2ND SHIFT (R Img Loc: [place]-CT IMAGING [place] Service: Unknown [facility], [address] [place] [address] (Case [id number] COMPLETE) CT ABDOMEN AND PELVIS W/CONTRAST (CT Detailed) CPT:87048 Contrast Media : Non-ionic Iodinated Reason for [...] 18, 2025 Date Verified: JAN 18, 2025 Sales And Marketing Assistant E-Sig:/ES/Laial Deluca MD Report: EXAMINATION: CT ABDOMEN AND [...] posterior rib. Dictated by Britany Mathias M.D. (radiology technologist) ILaila, have reviewed the images and report and concur with these findings. Primary Interpreting Staff: Laila Deluca MD, Radiologist (Sales And Marketing Assistant) Primary Interpreting Resident: BRITANY MATHIAS, Resident /LAILA GARCIA [facility] Jan 18, 2025 12:01 PM CHEST PORTABLE: NEISHA LUND [id number] -1945 M Exm Date: JAN 18, 2025@12:01 Req Phys: PRESTON JONES Loc: [place]-EMERGENCY DEPT 2ND SHIFT (R Img Loc: [place]-MAIN RADIOLOGY SUITE Service: [facility], [facility] [address] [place] [address] (Case [id number] COMPLETE) CHEST PORTABLE (RAD Detailed) CPT:73977 Proc Modifiers : Portable Reason for Study: shortness of breath Clinical History: Report Status: Verified Date Reported: JAN 18, 2025 Date Verified: JAN 18, 2025 Sales And Marketing Assistant E-Sig:/ES/Laila Deluca MD Report: CHEST PORTABLE CASE #: [id number] DATE:01/18/2025 12:31 PM CLINICAL HISTORY:shortness of breath COMPARISON: 09/27/2023 TECHNIQUE: CHEST PORTABLE Impression: FINDINGS/IMPRESSION: Lordotic portable chest radiograph reveals some right midlung scarring which is slightly more conspicuous than on the preceding study. No focal pneumonia or pleural effusion. Heart size within normal limits. No CHF. No fracture. No pneumothorax. Primary Interpreting Staff: Laila Deluca MD, Radiologist (Sales And Marketing Assistant) /[facility] Pathology Reports: +/- 30 days of [...] the Encounter. The data comes from all [place] treatment facilities. Date/Time Pathology Report Provider Source [...] - - - - $TEXT Submitted by: Novalys Date obtained: Jan 19, 2025 - - [...] YELLOW UNFIXED FLUID RECEIVED FOR PATIENT: NEISHA LNUD [id number]. 2 PAP STAINED CYTOSPINS AND ONE CELL [...] 2025@14:18 Performing Laboratory: Cytology Report Per[facility] By: [facility] [address] [place] [address]# [id number] [address] [place] [phone] $FTR - - - - - - [...] - - NEISHA LUND STANDARD FORM 515 ID:[id number] SEX:M :1945 AGE: 79 LOC:APFEE PCP: Rigo Florian /zachary/ LUAN ARANGO MD, PhD STAFF PATHOLOGIST Signed: 01/22/2025 14:18 LUAN ARANGO [facility] Encounter Notes: All associated encounter notes This section contains the clinical notes associated to the Encounter. Date/Time Encounter Note(s) Provider Source Jan 30, 2025 12:37 PM INTERNAL MEDICINE CLINICAL PHARMACIST MEDICATION MGT NOTE: LOCAL TITLE: CLINICAL PHARMACIST NOTE STL STANDARD TITLE: INTERNAL MEDICINE CLINICAL PHARMACIST MEDICATION DATE OF NOTE: JAN 30, 2025@12:37 ENTRY DATE: JAN 30, 2025@12:38:26 AUTHOR: ELIZABETH WASHBURN COSIGNER: EL VELASQUEZ URGENCY: STATUS: COMPLETED CLINICAL PHARMACIST NOTE STL Has ADDENDA Clinical Pharmacist Medication Reconciliation Note Patient medication reconciliation performed upon admission to floor. Patient was identified by 2 unique identifiers. Pt is a 79 MALE with a PMH of decompensated alcohol-related cirrhosis c/b ascites, COPD, osteoporosis, GERD, RIOS, mild cognitive impairment, and MDD presenting with odonv-gw-qymekrz abdominal pain 2/2 constipation after running out of lactulose at home. Current medications: Active and Recently Outpatient Medications (excluding Supplies): Active Outpatient Medications Status 1) AMILORIDE HCL 5MG TAB TAKE TWO TABLETS BY MOUTH TWICE A DAY ACTIVE Indication: FOR HIGH BLOOD PRESSURE - unable to verify - LF 01/11/25 2) CALCIUM 600MG/VITAMIN D 400UNIT TAB TAKE 1 TABLET BY MOUTH ACTIVE TWICE A DAY WITH FOOD Indication: FOR CALCIUM SUPPLEMENTATION - unable to verify - LF 07/16/24 - 60DS - 2 refills remaining 3) COLESTIPOL HCL 1GM TAB TAKE ONE TABLET BY MOUTH TWICE A DAY ACTIVE (OTHER MEDICATIONS SHOULD BE TAKEN 1 HOUR BEFORE OR 4 HOURS AFTER COLESTIPOL) Indication: FOR DIARRHEA - unable to verify - LF 07/18/24 - 0 refills remaining 4) CREON 36,000UNIT EC CAP TAKE 2 CAPSULES BY MOUTH THREE TIMES ACTIVE A DAY BEFORE MEALS TAKE WITH FOOD DIRECTED. Indication: FOR PANCREATIC INSUFFICIENCY - pt reports adherence - refill 01/31/25 5) FLUTICASONE PROP 50MCG 120D NASAL INHL INSTILL 1 SPRAY IN ACTIVE NOSTRIL(S) ONCE A DAY (MUST BE USED DIRECTED FOR MINIMUM OF 21 DAYS TO PROVIDE ADEQUATE BENEFITS) Indication: FOR CHRONIC RHINOSINUSITIS - unable to verify - LF 08/08/24 - 11 refills remaining 6) FUROSEMIDE 80MG TAB TAKE ONE TABLET BY MOUTH EVERY MORNING ACTIVE Indication: FOR FLUID RETENTION (EDEMA) - pt reports adherence - refill 01/31/25 7) GABAPENTIN 100MG CAP TAKE ONE CAPSULE BY MOUTH TWICE DAILY ACTIVE NEEDED Indication: FOR PAIN - pt reports adherence - LF 12/06/24 30DS - 2 refills remaining 8) IPRATROPIUM BR 0.03% NASAL SPRAY USE 2 SPRAYS INTO HOLD NOSTRIL(S) THREE TIMES A DAY Indication: FOR ALLERGIC RHINITIS - unable to verify - LF 08/08/24 - 11 refills remaining 9) LACTULOSE 10GM/15ML ORAL SOLN TAKE 30 ML BY MOUTH EVERY 6 ACTIVE HOURS NEEDED Indication: FOR CONSTIPATION - pt reports taking - ran out 01/29 finished full bottle - 2 refills remaining 11) METOPROLOL TARTRATE 50MG TAB TAKE ONE-HALF TABLET BY MOUTH ACTIVE TWICE A DAY TAKE WITH OR IMMEDIATELY FOLLOWING FOOD. Indication: FOR HIGH BLOOD PRESSURE - pt reports adherence - LF 01/18/25 12) NUTRITION SUPL ENSURE PLUS/CAIT LIQUID TAKE 1 CANFUL BY ACTIVE MOUTH TWICE A DAY Indication: FOR NUTRITION/DIETARY SUPPLEMENTATION - unable to verify - LF 12/09/24 - 1 refill remaining 13) OLODATEROL/TIOTROP 2.5MCG/ACTUAT 60D INH INHALE 2 PUFFS BY ACTIVE ORAL INHALATION ONCE A DAY ADMINISTER AT SAME TIME EACH DAY Indication: FOR COPD - pt reports adherence - LF 12/26/24 - no refills remaining 14) PANTOPRAZOLE NA 40MG EC TAB TAKE ONE TABLET BY MOUTH EVERY ACTIVE MORNING 30 MINUTES BEFORE ONE MEAL Indication: LUQ PAIN - unable to verify - LF 01/10/25 90DS - no refills remaining 15) POLYETHYLENE GLYCOL 3350 ORAL PWDR MIX AND DRINK 1 CAPFUL BY ACTIVE MOUTH TWICE DAILY NEEDED Indication: FOR CONSTIPATION - unable to verify 16) RIFAXIMIN 550MG TAB TAKE ONE TABLET BY MOUTH TWICE A DAY ACTIVE Indication: FOR HEPATIC ENCEPHALOPATHY - unable to verify - LF 01/18/25 17) SIMETHICONE 80MG CHEW TAB CHEW AND SWALLOW ONE TABLET BY ACTIVE MOUTH FOUR TIMES A DAY NEEDED Indication: FOR GAS DISCOMFORT - unable to verify 18) TERIPARATIDE 250MCG/ML(560MCG)2.24ML PEN INJECT 20MCG/0.08ML ACTIVE UNDER THE SKIN ONCE A DAY (USE WITH NEEDLE,PEN 31G,5/16IN - [facility]) Indication: FOR OSTEOPOROSIS - unable to verify - 01/10/25 Active Non-VA Medications Status 1) Non-VA AMITRIPTYLINE HCL 10MG TAB 10MG BY MOUTH ONCE A DAY ACTIVE - verified via [facility] - discontinued per PCP LF 07/2024 2) Non-VA ASPIRIN 81MG EC TAB 81MG BY MOUTH ONCE A DAY ACTIVE -unable to verify 3) Non-VA AZELASTINE 137MCG/SPRAY 200D NASAL INHL 1 SPRAY ACTIVE NOSTRIL(S) TWICE A DAY - unable to verify 4) Non-VA CETIRIZINE HCL 10MG TAB 10MG BY MOUTH ONCE A DAY ACTIVE - unable to verify 5) Non-VA ESCITALOPRAM OXALATE 20MG TAB 10MG BY MOUTH ONCE A ACTIVE DAY -verified via [facility] - LF 12/2024 (90 DS) 6) Non-VA FLUTICASONE PROP 50MCG 120D NASAL INHL 1 SPRAY ACTIVE NOSTRIL(S) ONCE A DAY - unable to verify 7) Non-VA SENNOSIDES 8.6MG TAB 8.6MG BY MOUTH ONCE A DAY ACTIVE NEEDED - unable to verify 27 Total Medications ======== 1. Discrepancies found with documented medication list: - Non-VA medication - omeprazole 40mg BID - Per [facility] pharmacy patient has 90 day supply LF 11/2024 - Patient should only take one PPI - recommend to discontine pantoprazole upon dicharge - Per [facility] pharmacy, pt no longer taking amitriptyline per non-VA PCP - Amitriptyline discontinued from non-VA med list 2. Medications expiring/needing refills: - None 3. Additional items to consider: - Patient is overdue on refills for colestipol, calcium/vitamin d, fluticasone, ipratropium, and nutrition supplement. - Recommend to reassess appropriateness of medications during inpatient stay. - Patient taking escitalopram from non-VA provider - Recommend to continue escitalopram while inpatient ======== Above discussed with interdisciplinary team. Time spent reviewing chart and completing med rec: 30 minutes /zachary/ ELIZABETH WASHBURN PGY-1 NATUROPATHIC DOCTOR Signed: 01/30/2025 14:10 /zachary/ EL VELASQUEZ Clinical Sales And Marketing Director Cosigned: 01/30/2025 14:41 01/30/2025 ADDENDUM STATUS: COMPLETED I have reviewed and generally agree with above as written by pharmacy clerk. Med rec completed to help determine appropriateness of continuing nonVA home medications while admitted. Unfortunately, patient has limited insight into home medications but able to obtain collateral information from nonVA pharmacy. /zachary/ EL VELASQUEZ Clinical Sales And Marketing Director Signed: 01/30/2025 15:33 ELIZABETH WASHBURN [facility]
--- OUTSIDE RECORDS SUMMARY | 2025-02-11 20:24 | XMS_ITS | Continuity of Care Document ---
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 2014 133 complet ed [facility] INFLUENZA, UNSPECIFIED FORMULATION 2013 88 complet ed [facility] INFLUENZA, UNSPECIFIED FORMULATION 2012 88 complet ed [facility] ZOSTER LIVE 2012 121 complet ed [facility] INFLUENZA, UNSPECIFIED FORMULATION 2011 88 complet ed [facility] INFLUENZA, UNSPECIFIED FORMULATION 2010 88 complet ed [facility] INFLUENZA, UNSPECIFIED FORMULATION 2008 88 complet ed [facility] INFLUENZA, UNSPECIFIED FORMULATION 2007 88 complet ed [facility] INFLUENZA, UNSPECIFIED FORMULATION 2006 88 complet ed [facility] TDAP 2006 115 complet ed Left Deltoid [facility] INFLUENZA, UNSPECIFIED FORMULATION 2005 88 complet ed [facility] HEP B, ADULT 2004 MANISHA BORRERO 43 complet ed [facility] HEP A, ADULT 2004 MANISHA BORRERO 52 complet ed [facility] HEP B, ADULT 2004 MANISHA BORRERO 43 complet ed [facility] INFLUENZA (HISTORICAL) 2003 88 complet ed [facility] Results Combined list of recent chemistry, hematology and other laboratory results from Department of Defense and Veterans Affairs, ranging from 15 months to all on record, depending upon the facility. Order Name Results Value Reference Range Date Interpretation Specimen Comments Source CBC LEUKOCYTES [#/VOLUME] IN BLOOD BY AUTOMATED COUNT 7.5 10*3/uL 3.6 - 11.2 01/31 Specimen Type: BLOOD No comment entered. Ordering Provider: MALENA STEEN Report Released Date/Time: Jan 30, 2025 07:25 AM Reporting Lab: [facility] [address] [facility] [address] Performing Lab: [facility] [address] [facility] [address] [facility] CBC ERYTHROCYT ES [#/VOLUME] IN BLOOD BY AUTOMATED COUNT 4.32 10*6/uL 4.10 - 5.70 01/31 Specimen Type: BLOOD No comment entered. Ordering Provider: MALENA STEEN Report Released Date/Time: Jan 30, 2025 07:25 AM Reporting Lab: [address] [address] Performing Lab: [address] [address] [facility] CBC HEMOGLOBIN [MASS/VOLU ME] IN BLOOD 12.0 g/dL 13.1 - 16.8 01/31 L Specimen Type: BLOOD No comment entered. Ordering Provider: MALENA STEEN Report Released Date/Time: Jan 30, 2025 07:25 AM Reporting Lab: [place] [id number] Performing Lab: [address] [phone] CBC HEMATOCRIT [VOLUME FRACTION] OF BLOOD 37.3 38.2 - 48.4 01/31 L Specimen Type: BLOOD No comment entered. Ordering Provider: MALENA STEEN Report Released Date/Time: Jan 30, 2025 07:25 AM Reporting Lab: [address] [address] Performing Lab: [address] [address] [facility] CBC MCV [ENTITIC VOLUME] BY AUTOMATED COUNT 86.3 fL 80.0 - 100.0 01/31 Specimen Type: BLOOD No comment entered. Ordering Provider: MALENA STEEN Report Released Date/Time: Jan 30, 2025 07:25 AM Reporting Lab: [address] [address] Performing Lab: [address] [address] [facility] CBC MCH [ENTITIC MASS] BY AUTOMATED COUNT 27.8 pg 27.0 - 34.0 01/31 Specimen Type: BLOOD No comment entered. Ordering Provider: MALENA STEEN Report Released Date/Time: Jan 30, 2025 07:25 AM Reporting Lab: [place] [address] [facility] [address] Performing Lab: [address] [address] [facility] CBC MCHC [MASS/VOLU ME] BY AUTOMATED COUNT 32.2 g/dL 33.0 - 36.0 01/31 L Specimen Type: BLOOD No comment entered. Ordering Provider: MALENA STEEN Report Released Date/Time: Jan 30, 2025 07:25 AM Reporting Lab: [place] [address] [facility] [address] Performing Lab: [address] [address] [facility] CBC PLATELETS [#/VOLUME] IN BLOOD BY AUTOMATED COUNT 145 10*3/uL 150 - 400 01/31 L Specimen Type: BLOOD No comment entered. Ordering Provider: MALENA STEEN Report Released Date/Time: Jan 30, 2025 07:25 AM Reporting Lab: [place] [address] [facility] [address] Performing Lab: [address] [address] [facility] CBC PLATELET MEAN VOLUME [ENTITIC VOLUME] IN BLOOD BY AUTOMATED COUNT 11.3 fL 7.5 - 11.2 01/31 H Specimen Type: BLOOD No comment entered. Ordering Provider: MALENA STEEN Report Released Date/Time: Jan 30, 2025 07:25 AM Reporting Lab: [place] [address] [facility] [address] Performing Lab: [address] [address] [facility] CBC ERYTHROCYT E DISTRIBUTI ON WIDTH [RATIO] BY AUTOMATED COUNT 16.4 11.8 - 15.1 01/31 H Specimen Type: BLOOD No comment entered. Ordering Provider: STEEN,PRAN AV Report Released Date/Time: Jan 30, 2025 07:25 AM Reporting Lab: [facility] [address] [facility] [address] Performing Lab: [facility] [address] [facility] [address] [facility] CBC LYMPHOCYTE S/100 LEUKOCYTES IN BLOOD BY AUTOMATED COUNT 8 01/31 Specimen Type: BLOOD No comment entered. Ordering Provider: MALENA STEEN Report Released Date/Time: Jan 30, 2025 07:25 AM Reporting Lab: [facility] [address] [facility] [address] Performing Lab: [facility] [address] [facility] [address] [facility] CBC MONOCYTES/ 100 LEUKOCYTES IN BLOOD BY AUTOMATED COUNT 14 01/31 Specimen Type: BLOOD No comment entered. Ordering Provider: MALENA STEEN Report Released Date/Time: Jan 30, 2025 07:25 AM Reporting Lab: [facility] [address] [facility] [address] Performing Lab: [facility] [address] [facility] [address] [facility] CBC NEUTROPHIL S/100 LEUKOCYTES IN BLOOD BY AUTOMATED COUNT 74 01/31 Specimen Type: BLOOD No comment entered. Ordering Provider: MALENA STEEN Report Released Date/Time: Jan 30, 2025 07:25 AM Reporting Lab: [facility] [address] [facility] [address] Performing Lab: [facility] [address] [facility] [address] [facility] CBC EOSINOPHIL S/100 LEUKOCYTES IN BLOOD BY AUTOMATED COUNT 3 01/31 Specimen Type: BLOOD No comment entered. Ordering Provider: MALENA STEEN AV Report Released Date/Time: Jan 30, 2025 07:25 AM Reporting Lab: [facility] [address] [facility] [address] Performing Lab: [place] [address] [facility] [address] [facility] CBC BASOPHILS/ 100 LEUKOCYTES IN BLOOD BY AUTOMATED COUNT 0 01/31 Specimen Type: BLOOD No comment entered. Ordering Provider: MALENA STEEN Report Released Date/Time: Jan 30, 2025 07:25 AM Reporting Lab: [place] [address] [facility] [address] Performing Lab: [place] [address] [facility] [address] [facility] CBC LYMPHOCYTE S [#/VOLUME] IN BLOOD BY AUTOMATED COUNT 0.62 10*3/uL 0.77 - 4.50 01/31 L Specimen Type: BLOOD No comment entered. Ordering Provider: MALENA STEEN Report Released Date/Time: Jan 30, 2025 07:25 AM Reporting Lab: [place] [address] [facility] [address] Performing Lab: [place] [address] [facility] [address] [facility] CBC MONOCYTES [#/VOLUME] IN BLOOD BY AUTOMATED COUNT 1.08 10*3/uL 0.19 - 0.80 01/31 H Specimen Type: BLOOD No comment entered. Ordering Provider: MALENA STEEN Report Released Date/Time: Jan 30, 2025 07:25 AM Reporting Lab: [place] [address] [facility] [address] Performing Lab: [place] [address] [facility] [address] [facility] CBC NEUTROPHIL S [#/VOLUME] IN BLOOD BY AUTOMATED COUNT 5.53 10*3/uL 2.10 - 8.00 01/31 Specimen Type: BLOOD No comment entered. Ordering Provider: MALENA STEEN Report Released Date/Time: Jan 30, 2025 07:25 AM Reporting Lab: [place] [address] [facility] [address] Performing Lab: [place] [address] [facility] [address] [facility] CBC EOSINOPHIL S [#/VOLUME] IN BLOOD BY AUTOMATED COUNT 0.21 10*3/uL 0.00 - 0.60 01/31 Specimen Type: BLOOD No comment entered. Ordering Provider: MALENA STEEN Report Released Date/Time: Jan 30, 2025 07:25 AM Reporting Lab: [place] [address] [place] [phone] Performing Lab: [place] [address] [facility] [address] [facility] CBC BASOPHILS [#/VOLUME] IN BLOOD BY AUTOMATED COUNT 0.02 10*3/uL 0.00 - 0.20 01/31 Specimen Type: BLOOD No comment entered. Ordering Provider: MALENA STEEN Report Released Date/Time: Jan 30, 2025 07:25 AM Reporting Lab: [place] [address] [place] [phone] Performing Lab: [place] [address] [facility] [address] [facility] COMPREHE NSIVE METABOLI C PANEL CREATININE [MASS/VOLU ME] IN SERUM OR PLASMA 1.07 mg/dL 0.7 - 1.3 01/31 Specimen Type: PLASMA Comment: No hemolysis noted. Ordering Provider: MALENA STEEN Report Released Date/Time: Jan 30, 2025 07:25 AM Reporting Lab: [place] [address] [place] [phone] Performing Lab: [place] [phone] [facility] COMPREHE NSIVE METABOLI C PANEL UREA NITROGEN [MASS/VOLU ME] IN SERUM OR PLASMA 24.7 mg/dL 9.0 - 25.0 01/31 Specimen Type: PLASMA Comment: No hemolysis noted. Ordering Provider: MALENA STEEN Report Released Date/Time: Jan 30, 2025 07:25 AM Reporting Lab: [facility] [address] [facility] [address] Performing Lab: [facility] [address] [facility] [address] [facility] COMPREHE NSIVE METABOLI C PANEL GLUCOSE [MASS/VOLU ME] IN SERUM OR PLASMA 107 mg/dL 72 - 99 01/31 H Specimen Type: PLASMA Comment: No hemolysis noted. Ordering Provider: MALENA STEEN Report Released Date/Time: Jan 30, 2025 07:25 AM Reporting Lab: [place] [address] [facility] [address] Performing Lab: [place] [address] [facility] [address] [facility] COMPREHE NSIVE METABOLI C PANEL SODIUM [MOLES/VOL UME] IN SERUM OR PLASMA 132 meq/L 136 - 145 01/31 L Specimen Type: PLASMA Comment: No hemolysis noted. Ordering Provider: MALENA STEEN Report Released Date/Time: Jan 30, 2025 07:25 AM Reporting Lab: [place] [address] [facility] [address] Performing Lab: [place] [address] [address] [facility] [address] [facility] COMPREHE NSIVE METABOLI C PANEL POTASSIUM [MOLES/VOL UME] IN SERUM OR PLASMA 4.0 meq/L 3.5 - 5 01/31 Specimen Type: PLASMA Comment: No hemolysis noted. Ordering Provider: MALENA STEEN Report Released Date/Time: Jan 30, 2025 07:25 AM Reporting Lab: [place] [address] [facility] [address] Performing Lab: [place] [address] [facility] [address] [facility] COMPREHE NSIVE METABOLI C PANEL CHLORIDE [MOLES/VOL UME] IN SERUM OR PLASMA 103 meq/L 98 - 107 01/31 Specimen Type: PLASMA Comment: No hemolysis noted. Ordering Provider: MALENA STEEN Report Released Date/Time: Jan 30, 2025 07:25 AM Reporting Lab: [facility] [address] [facility] [address] Performing Lab: [facility] [address] [facility] [address] [facility] COMPREHE NSIVE METABOLI C PANEL CARBON DIOXIDE, TOTAL [MOLES/VOL UME] IN SERUM OR PLASMA 21 meq/L 22 - 31 01/31 L Specimen Type: PLASMA Comment: No hemolysis noted. Ordering Provider: MALENA STEEN Report Released Date/Time: Jan 30, 2025 07:25 AM Reporting Lab: [facility] [address] [facility] [address] Performing Lab: [facility] [address] [facility] [address] [facility] COMPREHE NSIVE METABOLI C PANEL CALCIUM [MASS/VOLU ME] IN SERUM OR PLASMA 8.5 mg/dL 8.4 - 10.4 01/31 Specimen Type: PLASMA Comment: No hemolysis noted. Ordering Provider: MALENA STEEN Report Released Date/Time: Jan 30, 2025 07:25 AM Reporting Lab: [facility] [address] [facility] [address] Performing Lab: [facility] [address] [facility] [address] [facility] COMPREHE NSIVE METABOLI C PANEL PROTEIN [MASS/VOLU ME] IN SERUM OR PLASMA 6.6 g/dL 6 - 8.6 01/31 Specimen Type: PLASMA Comment: No hemolysis noted. Ordering Provider: MALENA STEEN Report Released Date/Time: Jan 30, 2025 07:25 AM Reporting Lab: [facility] [address] [facility] [address] Performing Lab: [facility] [address] [facility] [address] [facility] COMPREHE NSIVE METABOLI C PANEL ALBUMIN [MASS/VOLU ME] IN SERUM OR PLASMA 3.2 g/dL 3.4 - 5 01/31 L Specimen Type: PLASMA Comment: No hemolysis noted. Ordering Provider: MALENA STEEN Report Released Date/Time: Jan 30, 2025 07:25 AM Reporting Lab: [place] [address] [facility] [address] Performing Lab: [place] [address] [place] [phone] COMPREHE NSIVE METABOLI C PANEL BILIRUBIN. TOTAL [MASS/VOLU ME] IN SERUM OR PLASMA 0.6 mg/dL 0.2 - 1.2 01/31 Specimen Type: PLASMA Comment: No hemolysis noted. Ordering Provider: MALENA STEEN Report Released Date/Time: Jan 30, 2025 07:25 AM Reporting Lab: [place] [address] [facility] [address] Performing Lab: [place] [address] [facility] [address] [facility] COMPREHE NSIVE METABOLI C PANEL ALKALINE PHOSPHATAS E [ENZYMATIC ACTIVITY/V OLUME] IN SERUM OR PLASMA 125 U/L 40 - 150 01/31 Specimen Type: PLASMA Comment: No hemolysis noted. Ordering Provider: MALENA STEEN Report Released Date/Time: Jan 30, 2025 07:25 AM Reporting Lab: [place] [address] [facility] [address] Performing Lab: [place] [address] [facility] [address] [facility] COMPREHE NSIVE METABOLI C PANEL ASPARTATE AMINOTRANS FERASE [ENZYMATIC ACTIVITY/V OLUME] IN SERUM OR PLASMA 48 U/L 5 - 34 01/31 H Specimen Type: PLASMA Comment: No hemolysis noted. Ordering Provider: MALENA STEEN Report Released Date/Time: Jan 30, 2025 07:25 AM Reporting Lab: [place] [address] [facility] [address] Performing Lab: [facility] [address] [facility] [address] [facility] COMPREHE NSIVE METABOLI C PANEL ALANINE AMINOTRANS FERASE [ENZYMATIC ACTIVITY/V OLUME] IN SERUM OR PLASMA 32 U/L 8 - 40 01/31 Specimen Type: PLASMA Comment: No hemolysis noted. Ordering Provider: MALENA STEEN Report Released Date/Time: Jan 30, 2025 07:25 AM Reporting Lab: [place] [address] [facility] [address] Performing Lab: [place] [address] [facility] [address] [place] [address] DIVISION COMPREHE NSIVE METABOLI C PANEL GLOMERULAR FILTRATION RATE/1.73 SQ M.PREDICTE D [VOLUME RATE/AREA] IN SERUM, PLASMA OR BLOOD BY CREATININE -BASED FORMULA (CKD-EPI 2020) 71.5 60 01/31 Specimen Type: PLASMA Comment: No hemolysis noted. Ordering Provider: MALENA STEEN Report Released Date/Time: Jan 30, 2025 07:25 AM Reporting Lab: [place] [address] [facility] [address] Performing Lab: [place] [address] [facility] [address] [facility] MAGNESIU M MAGNESIUM [MASS/VOLU ME] IN SERUM OR PLASMA 2.0 mg/dL 1.6 - 2.6 01/31 Specimen Type: PLASMA Comment: No hemolysis noted. Ordering Provider: MALENA STEEN Report Released Date/Time: Jan 30, 2025 07:25 AM Reporting Lab: [facility] [address] Performing Lab: [address] [address] [facility] PHOSPHOR OUS PHOSPHATE [MASS/VOLU ME] IN SERUM OR PLASMA 2.6 mg/dL 2.3 - 4.7 01/31 Specimen Type: PLASMA Comment: No hemolysis noted. Ordering Provider: MALENA STEEN Report Released Date/Time: Jan 30, 2025 07:25 AM Reporting Lab: [facility] [address] [facility] [address] Performing Lab: [facility] [address] [facility] [address] [facility] CELL COUNT BODY FLUIDS (STL) MESOTHELIA L CELLS/100 LEUKOCYTES IN PERITONEAL FLUID BY MANUAL COUNT 12 01/30 Specimen Type: PERITONEAL FL. No comment entered. Ordering Provider: BALTA BARR Report Released Date/Time: Jan 30, 2025 03:49 PM Reporting Lab: [place] [address] [facility] [address] Performing Lab: [place] [address] [facility] [address] [facility] CELL COUNT BODY FLUIDS (STL) APPEARANCE OF BODY FLUID YELLOW/H AZY 01/30 Specimen Type: PERITONEAL FL. No comment entered. Ordering Provider: BALTA BARR Report Released Date/Time: Jan 30, 2025 03:49 PM Reporting Lab: [place] [address] [facility] [address] Performing Lab: [place] [address] [facility] [address] [facility] CELL COUNT BODY FLUIDS (STL) SEGMENTED NEUTROPHIL S/100 LEUKOCYTES IN PERITONEAL FLUID 6 01/30 Specimen Type: PERITONEAL FL. No comment entered. Ordering Provider: BALTA BARR Report Released Date/Time: Jan 30, 2025 03:49 PM Reporting Lab: [facility] [address] [facility] [address] Performing Lab: [facility] [address] [facility] [address] [facility] CELL COUNT BODY FLUIDS (STL) LYMPHOCYTE S/100 LEUKOCYTES IN PERITONEAL FLUID 48 01/30 Specimen Type: PERITONEAL FL. No comment entered. Ordering Provider: BALTA BARR Report Released Date/Time: Jan 30, 2025 03:49 PM Reporting Lab: [address] [phone] Performing Lab: [address] [address] [facility] CELL COUNT BODY FLUIDS (STL) MACROPHAGE S/100 LEUKOCYTES IN BODY FLUID BY MANUAL COUNT 34 01/30 Specimen Type: PERITONEAL FL. No comment entered. Ordering Provider: BALTA BARR Report Released Date/Time: Jan 30, 2025 03:49 PM Reporting Lab: [address] [address] Performing Lab: [address] [id number] [place] [address] CELL COUNT BODY FLUIDS (STL) FL NUCLEATED CELLS 97 /uL 0 - 500 01/30 Specimen Type: PERITONEAL FL. No comment entered. Ordering Provider: BALTA BARR Report Released Date/Time: Jan 30, 2025 03:49 PM Reporting Lab: [address] [address] Performing Lab: [address] [address] [facility] CELL COUNT BODY FLUIDS (STL) ERYTHROCYT ES [#/VOLUME] IN PERITONEAL FLUID 561 /uL 01/30 Specimen Type: PERITONEAL FL. No comment entered. Ordering Provider: BALTA BARR Report Released Date/Time: Jan 30, 2025 03:49 PM Reporting Lab: [address] [phone] Performing Lab: [address] [address] [facility] MRSA SURVL NARES DNA METHICILLI N RESISTANT STAPHYLOCO CCUS AUREUS (MRSA) DNA [PRESENCE] IN NOSE BY GRACIELA WITH PROBE DETECTION Negative 01/30 Specimen Type: NARES Comment: Qualitative real-time PCR test for the rapid detection of methicillin -resistant Staphylococ cus aureus (MRSA) DNA from nasal swabs. A negative result does not preclude infection with the agent(s) tested and should not be used as the sole basis for treatment or other patient management decisions. A positive test does not necessarily indicate the presence of viable organisms, following bacterial culture to recover the organism for further characteriz ation and susceptibil ity testing. All results must be combined with clinical observation s, patient history, and epidemiolog ical information for final interpretat ion. Ordering Provider: MALENA STEEN Report Released Date/Time: Jan 30, 2025 07:25 AM Reporting Lab: [facility] [address] [facility] [address] Performing Lab: [address] LIPASE LIPASE [ENZYMATIC ACTIVITY/V OLUME] IN SERUM OR PLASMA 60 U/L 8 - 78 01/30 Specimen Type: PLASMA Comment: No hemolysis noted. Ordering Provider: MALENA STEEN Report Released Date/Time: Jan 30, 2025 07:26 AM Reporting Lab: [facility] [address] [facility] [address] Performing Lab: [facility] [address] [facility] MAGNESIU M MAGNESIUM [MASS/VOLU ME] IN SERUM OR PLASMA 2.0 mg/dL 1.6 - 2.6 01/30 Specimen Type: PLASMA Comment: No hemolysis noted. Ordering Provider: MALENA STEEN Report Released Date/Time: Jan 30, 2025 07:25 AM Reporting Lab: [facility] [address] [facility] [address] Performing Lab: [facility] [place] [id number] [facility] PHOSPHOR OUS PHOSPHATE [MASS/VOLU ME] IN SERUM OR PLASMA 2.8 mg/dL 2.3 - 4.7 01/30 Specimen Type: PLASMA Comment: No hemolysis noted. Ordering Provider: MALENA STEEN Report Released Date/Time: Jan 30, 2025 07:25 AM Reporting Lab: [facility] [address] [facility] [address] Performing Lab: [facility] [address] [facility] [address] [facility] PT/INR NEW ([facility]) PROTHROMBI N TIME (PT) 14.6 s 9.4 - 12.5 01/30 H Specimen Type: PLASMA No comment entered. Ordering Provider: MALENA STEEN AV Report Released Date/Time: Jan 30, 2025 07:26 AM Reporting Lab: [place] [address] [facility] [address] Performing Lab: [place] [address] [facility] [address] [facility] PT/INR NEW ([facility]) INR IN PLATELET POOR PLASMA BY COAGULATIO N ASSAY 1.3 {INR} 01/30 Specimen Type: PLASMA No comment entered. Ordering Provider: MALENA STEEN AV Report Released Date/Time: Jan 30, 2025 07:26 AM Reporting Lab: [place] [address] [facility] [address] Performing Lab: [place] [address] [facility] [address] [facility] Vital Signs Combined list of inpatient and outpatient Vital Signs from Department of Defense and Veterans Affairs, ranging from 12 months to all on record, depending upon the facility. Vital Sign Value Date Comments Source PAIN 1 01/31/2025 02:20:00 [facility] SYSTOLIC BLOOD PRESSURE 129 01/30/2025 03:57:00 [facility] DIASTOLIC BLOOD PRESSURE 93 01/30/2025 03:57:00 [facility] PAIN 10 01/30/2025 03:57:00 [facility] TEMPERATURE 98.4 01/30/2025 03:57:00 [facility] PULSE 79 01/30/2025 03:57:00 [facility] RESPIRATION 17 01/30/2025 03:57:00 [facility] SYSTOLIC BLOOD PRESSURE 113 01/20/2025 00:55:00 [facility] DIASTOLIC BLOOD PRESSURE 55 01/20/2025 00:55:00 [facility] PULSE OXIMETRY 94 % 01/20/2025 00:55:00 Remi [facility] PAIN 7 01/20/2025 00:55:00 [facility] Raymond [facility] TEMPERATURE 98.2 01/20/2025 00:55:00 [facility] PULSE 66 01/20/2025 00:55:00 [facility] RESPIRATION 18 01/20/2025 00:55:00 [facility] SYSTOLIC BLOOD PRESSURE 120 01/19/2025 00:18:00 [facility] DIASTOLIC BLOOD PRESSURE 64 01/19/2025 00:18:00 [facility] PULSE OXIMETRY 96 % 01/19/2025 00:18:00 Remi [facility] TEMPERATURE 97.8 01/19/2025 00:18:00 [facility] PULSE 72 01/19/2025 00:18:00 [facility] RESPIRATION 18 01/19/2025 00:18:00 [facility] SYSTOLIC BLOOD PRESSURE 155 01/18/2025 09:19:32 [facility] DIASTOLIC BLOOD PRESSURE 74 01/18/2025 09:19:32 [facility] PULSE OXIMETRY 93 % 01/18/2025 09:19:32 Remi [facility] WEIGHT 185 01/18/2025 09:19:32 [facility] BMI 26 kg/m2 01/18/2025 09:19:32 [facility] PAIN 7 01/18/2025 09:19:32 [facility] HEIGHT 71 01/18/2025 09:19:32 [facility] TEMPERATURE 97.3 01/18/2025 09:19:32 [facility] PULSE 107 01/18/2025 09:19:32 [facility] RESPIRATION 18 01/18/2025 09:19:32 [facility] Encounters Combined list of: 1) Encounters from Department of [facility] Affairs facilities going backup to the last 18 months, not all VA inpatient encounters are included; 2) Encounters from the Department of [facility] facilities going backup to 280 months. Location Location Details Encounter Type Encounter Number Reason For Visit Attending Provider ADM Date DC Date Status Disposition Source [facility] OFFICE O/P EST MOD 30 MIN [id number] Diagnos is: ICD-10- CM F33.0 Major depress michael disorde r, recurre nt, mild GONZALEZ,AR MIDA A 08/[address] [facility] Outpatient Encounter [id number] 08/[address] 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 CACERESCHANO Godfrey Susan 09/05 [facility] Outpatient Encounter [id number] [id number] 1 09/06 [facility] Outpatient Encounter [id number] [id number] KASSI VICTOR Dane 09/07 [facility] OFFICE O/P EST LOW 20 MIN [id number] [id number] Diagnos is: ICD-10- CM R18.8 Other ascites FRANJASKINDRAKASSI PRADO Dane 09/08 [facility] Outpatient Encounter [id number] [id number] 2 09/09 [facility] Outpatient Encounter [id number] [id number] 09/12 [facility] Outpatient Encounter [id number] [id number] OCTOBERIAN 09/13 [facility] Outpatient Encounter [id number] [id number] Diagnos is: ICD-10- CM K74.69 Other cirrhos is of liver FRANCHAPITO COLBERTJACKIE Vela 09/13 [facility] Outpatient Encounter [id number] [id number] 5 09/14 [facility] Outpatient Encounter [id number] [id number] 09/15 [facility] OFFICE O/P EST MOD 30 MIN [id number] [id number] Diagnos is: ICD-10- CM R93.2 Abnorma l finding s on dx imaging of liver and biliary tract KASSI VICTOR 09/21 [facility] Outpatient Encounter [id number] [id number] 09/26 [facility] Outpatient Encounter [id number] [id number] 5 FRANCO SALAMANCA 09/26 [facility] OFFICE O/P EST MOD 30 MIN [id number] [id number] Diagnos is: ICD-10- CM R19.4 Change in bowel habit ADIN BISHOP 09/26 [facility] OFFICE O/P EST SF 10 MIN [id number] [id number] 9 Diagnos is: ICD-10- CM R07.82 Interco stal pain TRACE MEDRANO 09/26 [facility] Outpatient Encounter [id number] [id number] 09/26 [facility] HC PRO PHONE CALL 11-20 MIN [id number] [id number] 7 Diagnos is: ICD-10- CM Z02.9 Encount er for adminis trative examina tions, unspeci fied EDWIGE HOWELL AM H 09/26 [facility] Outpatient Encounter 32002-7.65 [id number] 09/29 [facility] Outpatient Encounter [id number] [id number] KIM CASANOVA 09/29 [facility] Outpatient Encounter [id number] [id number] 2 CORTNEY ALVARES 10/06 [facility] Outpatient Encounter [id number] [id number] 7 Diagnos is: ICD-10- CM R19.7 Diarrhe a, unspeci nena MARROQUINDIANA M 10/06 [facility] Outpatient Encounter [id number] [id number] 1 10/10 [facility] Outpatient Encounter [id number] [id number] 10/12 [facility] Outpatient Encounter 10703-3.65 [id number] 5 10/18 [facility] Outpatient Encounter [id number] [id number] 7 10/18 [facility] Outpatient Encounter [id number] [id number] 6 10/18 [facility] Outpatient Encounter [id number] A 10/19 [facility] ABD PARACENTES IS W/IMAGING [id number] [id number] Diagnos is: ICD-10- CM K70.31 Alcohol ic cirrhos is of liver with ascites KASSI VICTOR 10/20 [facility] Outpatient Encounter [id number] [id number] 6 10/20 [facility] HC PRO PHONE CALL 5-10 MIN [id number] [id number] 7 Diagnos is: ICD-10- CM 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 KASSI VICTOR 10/27 [facility] Outpatient Encounter [id number] [id number] 3 JENNIFER IIISUSANA W 10/31 [facility] ABD PARACENTES IS W/IMAGING [id number] [id number] 3 Diagnos is: ICD-10- CM R18.8 Other ascites KASSI VICTOR M 10/31 [facility] Outpatient Encounter [id number] [id number] 1 10/31 [facility] Outpatient Encounter [id number] [id number] 9 11/02 [facility] Outpatient Encounter [id number] [id number] 4 Diagnos is: ICD-10- CM R93.3 Abnorma l finding s on dx imaging of prt digesti ve tract ADIN BISHOP 11/[address] 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 OSVALDO GRIGGS 11/17 [facility] N [facility] Outpatient Encounter [id number] [id number] 11/18 [facility] N [facility] Outpatient Encounter [id number] [id number] 9 12/12 [facility] Outpatient Encounter [id number] [id number] 6 12/22 [facility] Outpatient Encounter 76089-5.65 [id number] 6 12/26 [facility] Outpatient Encounter [id number] [id number] SHASHANK KRUGER 01/06 [facility] OFFICE O/P EST LOW 20 MIN [id number] [id number] Diagnos is: ICD-10- CM 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 MILADIS YUSUF 01/31 [facility] HC PRO PHONE CALL 5-10 MIN [id number] [id number] 6 Diagnos is: ICD-10- CM K70.30 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 KASSI VICTOR 02/03 [facility] Outpatient Encounter [id number] [id number] 02/07 [facility] OFFICE O/P EST SF 10 MIN [id number] [id number] 6 Diagnos is: ICD-10- CM R18.8 Other ascites KASSI VICTOR 02/09 [facility] OFFICE O/P EST MOD 30 MIN [id number] [id number] 5 Diagnos is: ICD-10- CM H04.123 Dry eye syndrom e of bilater al lacrima l glands CHIVETTDane Montilla AMANDA SOPHIA 02/21 [facility] Outpatient Encounter [id number] [id number] 02/22 [facility] Outpatient Encounter [id number] [id number] 6 02/23 [facility] Outpatient Encounter [id number] [id number] 2 03/07 [facility] Outpatient Encounter [id number] [id number] 8 03/07 [facility] Outpatient Encounter [id number] [id number] 3 03/15 [facility] OFFICE O/P EST MOD 30 MIN [id number] Diagnos is: ICD-10- CM K70.30 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 RUDY GONZALEZ A 03/22 [facility] Outpatient Encounter [id number] [id number] 3 03/31 [facility] OFFICE O/P EST MOD 30 MIN [id number] [id number] Diagnos is: ICD-10- CM K70.30 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 KASSI VICTOR 04/07 [facility] Outpatient Encounter [id number] [id number] 04/[address] 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 Outpatient Encounter [id number] [id number] 05/22 [facility] HC PRO PHONE CALL 21-30 MIN [id number] [id number] 3 Diagnos is: ICD-10- CM K70.30 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 TREVER BACON 05/23 [facility] Outpatient Encounter [id number] [id number] 05/24 [facility] Outpatient Encounter [id number] [id number] TARUN HECK 06/09 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 SYNCH AUDIO-ONLY EST LOW 20 [id number] [id number] Diagnos is: ICD-10- CM R19.7 Diarrhe a, unspeci fied GONZALEZ,AR MIDA A 07/18 [facility] MED NUTRITION INDIV SUBSEQ [id number] [id number] Diagnos is: ICD-10- CM E44.0 Moderat e protein -calori e malnutr itMILADIS Moreno 07/24 [facility] Outpatient Encounter [id number] [id number] 07/26 [facility] Outpatient Encounter [id number] [id number] 07/26 [facility] Outpatient Encounter [id number] [id number] 07/30 [facility] Outpatient Encounter [id number]. 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 DENIS Holman P 08/09 [facility] OFFICE O/P EST MOD 30 MIN [id number] [id number] Diagnos is: ICD-10- CM K86.1 Other chronic pancrea ADIN Lazaro 08/09 [facility] Outpatient Encounter [id number] [id number] 08/17 [facility] OFFICE O/P EST MOD 30 MIN [id number] [id number] Diagnos is: ICD-10- CM S88.112 D Complet e traum amp at lev betw kn and raymond brito low leg, subs SAMUDRALA, SIRESHA 08/23 [facility] PROSTHETIC TRAING 1ST ENC 47736-3.65 [id number] Diagnos is: ICD-10- CM Z46.89 Encount er for fitting and adjustm ent of oth devices RECORD,HUNTER Godfrey 08/23 [facility] Outpatient Encounter [id number] [id number] 2 09/01 [facility] CASE MANAGEMENT [id number] [id number] Diagnos is: ICD-10- CM 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 SYNCH AUDIO-ONLY EST LOW 20 [id number] [id number] Diagnos is: ICD-10- CM F41.9 Anxiety disorde r, unspeci fied GONZALEZ,AR MIDA A 09/12 [facility] Outpatient Encounter [id number] [id number] 2 09/20 [facility] Outpatient Encounter 71935-4.65 [id number] 1 10/[address] [facility] MED NUTRITION INDIV SUBSEQ [id number] [id number] Diagnos is: ICD-10- CM K70.30 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 MILADIS YUSUF 10/18 [facility] Outpatient Encounter [id number] [id number] 3 10/20 [facility] Outpatient Encounter 95195-6.65 [id number] 4 10/23 [facility] Outpatient Encounter 50617-2.65 [id number] 5 10/31 [facility] Outpatient Encounter 18823-8.65 [id number] 6 11/02 [facility] Encounter [id number] [id number] 9 11/02 [facility] OFFICE O/P EST LOW 20 MIN 60322-7.65 [id number] 9 Diagnos is: ICD-10- CM R19.7 Diarrhe a, unspeci fied ADIN BISHOP 11/02 [facility] Outpatient Encounter [id number] [id number] 9 11/[address] [facility] OFF/OP EST MAY X REQ PHY/QHP [id number] [id number] Diagnos is: ICD-10- CM Z71.9 Clinical Informatics Physician ing, unspeci fied MEGAN CHAUDHRY ORIEVANGELIST Limon 11/[address] [facility] Outpatient Encounter 97944-2.65 [id number] 11/14 [facility] PT EDUCATION NOC INDIVID 48634-8.65 [id number] 1 Diagnos is: ICD-10- CM R19.7 Diarrhe a, unspeci fied ECTOR CORTES A 11/15 [facility] Outpatient Encounter 38858-4.65 [id number] 4 11/20 [facility] Outpatient Encounter [id number] [id number] 4 11/[address] [facility] OFFICE O/P EST MOD 30 MIN [id number] [id number] Diagnos is: ICD-10- CM K70.30 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 GONZALEZ,AR MIDA A 11/[address] [facility] Outpatient Encounter 31543-8.65 [id number] 3 11/24 [facility] NQHP OL DIG ASSMT&MGMT 11-20 71638-5.65 [id number] 6 Diagnos is: ICD-10- CM R19.7 Diarrhe a, unspeci fied MARY ALICE DOS SANTOS M 11/27 [facility] Outpatient Encounter [id number] [id number] 2 11/27 [facility] Outpatient Encounter [id number] [id number] 8 11/27 [facility] Outpatient Encounter [id number] [id number] 4 11/29 [facility] Outpatient Encounter [id number] [id number] 2 11/29 [facility] Outpatient Encounter [id number] [id number] 1 11/29 [facility] DIAGNOSTIC COLONOSCOP Y 11735-9.65 [id number] 0 Diagnos is: ICD-10- CM R19.7 Diarrhe a, unspeci fied SOMMER ANDRADE E 12/01 [facility] OFFICE O/P EST HI 40 MIN 56488-5.65 [id number] 4 Diagnos is: ICD-10- CM Z01.818 Encount er for other preproc edural examina tiMALCOLM Blevins 12/01 [facility] Outpatient Encounter 86264-3.65 [id number] 2 12/01 [facility] Outpatient Encounter [id number] [id number] Tristan GARDUNO 12/01 [facility] OFFICE O/P EST SF 10 MIN 98597-8.65 [id number] 1 Diagnos is: ICD-10- CM K70.30 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 KASSI VICTOR 12/01 [facility] Outpatient Encounter [id number] [id number] 5 12/04 [facility] Outpatient Encounter 27515-6.65 [id number] 8 LUAN ARANGO 12/05 [facility] OFFICE O/P EST LOW 20 MIN 34608-6.65 [id number] 2 Diagnos is: ICD-10- CM R19.4 Change in bowel habit ADIN BISHOP 12/11 [facility] Outpatient Encounter [id number] [id number] 8 SOMMER ANDRADE 12/11 [facility] NQHP OL DIG ASSMT&MGMT 5-10 [id number] [id number] 4 Diagnos is: ICD-10- CM K74.60 Unspeci fied cirrhos is of liver SOMMER CHAVEZ 12/12 [facility] OFFICE O/P EST MOD 30 MIN [id number] [id number] 5 Diagnos is: ICD-10- CM 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 w/o current patholo Mariella Leiva 12/20 [facility] Outpatient Encounter 05726-2.65 [id number] 4 12/21 [facility] Outpatient Encounter [id number] [id number] 4 12/24 [facility] Outpatient Encounter [id number] [id number] 0 12/25 [facility] Outpatient Encounter 41739-6.65 [id number] 7 DARREL CANADA 12/28 [facility] Outpatient Encounter 40580-6.65 [id number] 7 12/28 [facility] SYNCH AUDIO-ONLY EST MOD 30 [id number] [id number] 6 Diagnos is: ICD-10- CM R60.9 Edema, unspeci nikoleed RASHIDBALTA 12/28 [facility] Outpatient Encounter [id number] 6 01/03 [facility] Outpatient Encounter [id number] 1 01/08 [facility] Outpatient Encounter [id number] 1 01/10 [facility] Outpatient Encounter [id number] 8 01/10 [facility] N [facility] NQHP OL DIG ASSMT&MGMT 5-10 [id number] 9 Diagnos is: ICD-10- CM K70.30 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 VALENTEKASSI Dane 01/11 [facility] Outpatient Encounter [id number] 9 01/15 [facility] PH1 ASSMT&MGMT NQHP 5-10 [id number] 7 Diagnos is: ICD-10- CM 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 [id number] 2 Diagnos is: ICD-10- CM K42.9 Umbilic al hernia without obstruc tion or gangren e COLT RODRIGEZ 01/18 [facility] EMERGENCY DEPT VISIT MOD MDM [id number] 3 Diagnos is: ICD-10- CM R18.8 Other ascites ORION PRINCE 01/18 [facility] Outpatient Encounter [id number] 6 01/18 [facility] Drainage of Peritoneal Cavity, [place] Approach [id number] 5 Admit Reason: ASCITES ONEC,MED 01/18 [facility] Inpatient Encounter [id number]. [id number] 4 MANNY PARTIDA ISS 01/18 [facility] Inpatient Encounter [id number] 8 MANNY PARTIDA ISS 01/18 [facility] Inpatient Encounter [id number] 8 MANNY PARTIDA ISS 01/18 [facility] Inpatient Encounter [id number] 1 MANNY PARTIDA ISS 01/18 [facility] Inpatient Encounter [id number] 7 MANNY PARTIDA ISS 01/19 [facility] Inpatient Encounter [id number] 3 MANNY PARTIDA ISS 01/19 [facility] Inpatient Encounter [id number] 7 CARINA GONZALEZ 01[facility] ODD [employer] WORKER ASSESSMENT [id number] 7 Diagnos is: ICD-10- CM 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 KARLA Curran 01[facility]19 [facility] En[facility] [id number] 4 CARINA GONZALEZ 01/19 [facility] Inpatient Encounter [id number] 2 CARINA GONZALEZ 01/19 [facility] Inpatient Encounter [id number] 4 CARMEL GARCIA 01/19 [facility] Inpatient Encounter [id number] 1 Diagnos is: ICD-10- CM K70.30 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 KIM NULL M 01/19 [facility] [facility] Inpatient Encounter [id number] ARIELL[facility] ULLOA AURA 01[facility]19 [facility] Inpatient Encounter [id number] NIESHA FLANAGAN 01/19 [facility] Inpatient Encounter [id number] ARIELLA ULLOA AURA 01/20 [facility] Inpatient Encounter [id number] ARIELLA ULLOA AURA 01/20 [facility] Inpatient Encounter [id number] 5 ARIELLA ULLOA AURA 01/20 [facility] Inpatient Encounter [id number] 2 ARIELLA ULLOA AURA 01/20 [facility] Encounter [id number] CARINA GONZALEZ 01/20 [facility] Inpatient Encounter [id number] CARINA GONZALEZ AELLA 01/20 [facility] Inpatient Encounter [id number] 4 CARINA GONZALEZ 01/20 [facility] Inpatient Encounter [id number] CARINA GONZALEZ 01/20 [facility] Outpatient Encounter [id number] 6 01/22 [facility] PH1 ASSMT&MGMT NQHP - [id number] Diagnos is: ICD-10- CM R19.4 Change in bowel habit MARY ALICE DOS SANTOS 01/22 [facility] Outpatient Encounter [id number] LUAN ARANGO 01/[address] [facility] OFF/OP EST OCTOBER X REQ PHY/QHP [id number] Diagnos is: ICD-10- CM K70.30 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 ARNAV STEPHENSON 01/[address] [facility] Outpatient Encounter [id number] 01/[address] 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 TONIA ROBERTS ED 01/30 [facility] Drainage of Peritoneal Cavity, [place] us Approach [id number] Admit Reason: DECOMPE NSATED CIRRHOS IS ONEC,MED 01/30 [facility] Inpatient Encounter [id number] MAINE RING 01/30 [facility] Inpatient Encounter [id number] MAINE RING 01/30 [facility] Inpatient Encounter [id number] 1 MAINE RING 01/30 [facility] Inpatient Encounter [id number] SREE EM 01/30 [facility] N [facility] Inpatient Encounter [id number] MAINE RING 01/30 [facility] Inpatient Encounter [id number] Diagnos is: ICD-10- CM E55.9 Vitamin D deficie ncy, unspeci fied KIM NULL Dane 01/30 [facility] MTMS BY PHARM ADDL 15 MIN [id number] Diagnos is: ICD-10- CM Z79.899 Other shelter (curren t) drug therapy MORRO VELASQUEZ 01/30 [facility] Inpatient Encounter [id number] 2 SREE EM 01/30 [facility] Inpatient Encounter [id number] NIKOLAY NAVARRETE 01/30 [facility] En[facility] [id number] PACO YAN 01/30 [facility] Encounter [id number] NIKOLAY NAVARRETE 01/31 [facility] Encounter [id number] NIKOLAY NAVARRETE 01/31 [facility] Inpatient Encounter [id number] MAINE RING 01/31 [facility] Inpatient Encounter [id number] MAINE RING 01/31 [facility] N [facility] Inpatient Encounter [id number] MAINE RING 01/31 [facility] Inpatient Encounter [id number] SREE EM 01/31 [facility] Inpatient Encounter 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 MAINE RING 01/31 [facility] PH1 ASSMT&MGMT NQHP 05-03 [id number] Diagnos is: ICD-10- CM K70.30 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 Social History Type Response Date Comment Source Tobacco smoking status NHIS VA-TOBACCO USE FORMER CIGARETTES 11/24/2024 [facility] History of tobacco use VA-TOBACCO NEVER USED OTHER TYPE 11/24/2024 [facility] History of tobacco use VA-TOBACCO FORMER USER 08/19/2023 [facility] History of tobacco use VA-TOBACCO FORMER USER 05/27/2022 [facility] History of tobacco use VA-TOBACCO FORMER USER 01/17/2021 [facility] History of tobacco use ORYX ADMIT TOBACCO SCREEN NO 11/12/2020 [facility] History of tobacco use VA-TOBACCO FORMER USER 02/08/2020 [facility] History of tobacco use VA-TOBACCO QUIT < 1 YEAR 11/08/2018 [facility] History of tobacco use TOBACCO USER OFFERED MEDS 11/23/2017 [facility] History of tobacco use TOBACCO USER OFFERED MEDS 09/02/2017 [facility] History of tobacco use CURRENT TOBACCO USER 03/05/2017 [facility] History of tobacco use QUIT TOBACCO IN THE LAST 12 MONTHS 07/30/2016 [facility] History of tobacco use CURRENT TOBACCO USER 02/06/2016 [facility] History of tobacco use LIFETIME NON-USER OF TOBACCO 02/26/2015 [facility] History of tobacco use QUIT TOBACCO >7 YEARS AGO 09/20/2013 [facility] History of tobacco use CURRENT TOBACCO USER 08/24/2012 [facility] History of tobacco use QUIT TOBACCO >12 MO and <7 YRS AGO 11/10/2011 [facility] History of tobacco use QUIT TOBACCO >7 YEARS AGO 05/25/2006 [facility] History of tobacco use CURRENT NON-TOBACCO USER-HX OF USE 12/28/2005 [facility] History of tobacco use CURRENT TOBACCO USER 06/23/2005 [facility] History of tobacco use CURRENT NON-TOBACCO USER-HX OF USE 02/05/2005 [facility] History of tobacco use TOB-SMOKES OR USES TOBACCO PRODUCTS 12/12/2004 chewing tobacco [facility] Plan of Care List of future care activities from [facility] facilities. Additional future care activities may be listed in the Assessment and Plan section. Date/Time Care Activity Care Activity Detail Facili ty 03/01/2025 AMBULATORY - REHAB MEDICINE AMBULATORY - REHAB MEDICINE [facility] Advance Directives List of completed, amended, or rescinded Advance Directives on record at [facility] facilities. An actual copy of the Directive is not included. Date Advance Directive Provider Source 11/17/2022 ADVANCE DIRECTIVE MOISES ADHIKARI [facility] 06/12/2020 STATE-AUTHORIZED POR TABLE ORDERS ANNE CHATTERJEE [facility] 10/21/2018 RESCINDED ADVANCE DIRECTIVE SHERIF BETANCOURT [facility] 11/12/2011 ADVANCE DIRECTIVE DISCUSSION [facility]
[2025-02-12] VITALS (10 sets, daily range): BP systolic 94–126; BP diastolic 54–105; PULSE 56–89; RESP 12–24; TEMP 36.4–36.6; O2SAT 90–100
--- NOTE | ~2025-02-12 | CT_ITS ---
EXAMINATION: CT abdomen pelvis w con DATE: 02/12/2025 04:55 INDICATION: Abdominal pain and cirrhosis TECHNIQUE: Computed tomography (CT) of the abdomen and pelvis was performed with 100 mL Omnipaque-350 intravenous contrast. Automated exposure control and iterative reconstruction technique were employed. The dose-length product was 709.54 mGy-cm. COMPARISON: None FINDINGS: Moderate emphysema in the lower lungs. There is some peripheral scarring such with a large bulla at the anterobasilar right lower lobe. Calcified right lower lobe nodule along with calcified right hilar lymph nodes and multiple splenic calcified lesions consistent with old granulomatous disease. Heart size is normal. No pericardial or pleural effusion. Shrunken nodular cirrhotic liver. Splenomegaly measuring 15.7 cm in length consistent with secondary portal venous hypertension. Small sliding-type hiatal hernia with gastroesophageal collaterals also consistent with portal venous hypertension. Gallbladder, pancreas, bilateral adrenal glands and right kidney are normal. A few cysts in the left kidney measuring up to 1.6 cm. Large amount of ascites in the abdomen and pelvis. There is wall thickening of several loops of small bowel. No dilated bowel to suggest obstruction. Normal appendix. Moderate-sized multiloculated fluid containing umbilical hernia. Bladder appears unremarkable but evaluation is limited by dense metallic streak artifact associated with a bipolar type right hip hemiarthroplasty and lag screw fixation at the left femoral head and neck. Postoperative change of bilateral inguinal hernia repairs. Mild gastrohepatic, periportal and portacaval lymphadenopathy which may be reactive. Old healed fractures of the left acetabulum and left superior pubic ramus. Severe lumbar spondylosis. IMPRESSION: 1. 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 2. Large amount of ascites. 3. Wall thickening of multiple loops of small bowel which could be due to an infectious or inflammatory enteritis or edematous wall thickening secondary to liver disease and portal venous hypertension. 4. Moderate emphysema with large bulla at the anterobasilar right lower lobe. Reviewed, dictated and finalized at location A. IMPRESSION: 1. Cirrhosis with splenomegaly and gastroesophageal varices consistent with sec ondary venous hypertension. 2. Large amount of ascites. 3. Wall thickening of multiple loops of small bowel which could be due to an in fectious or inflammatory enteritis or edematous wall thickening secondary to li allison disease and portal venous hypertension. 4. Moderate emphysema with large bulla at the anterobasilar right lower lobe.
--- OUTSIDE RECORDS SUMMARY | 2025-02-12 01:24 | XMS_ITS | Encounter Summary ---
Author Organization [facility] Address [address] [place] [address] Care Team Providers Care Outside Parts Sales Name Role Phone Lupillo Sweet MD Primary Care Provider + Encounter Details Date Type Department Care Team (Late st Contact Info) Description 09/16/2023 Lab Requisition [facility] - DermPath Lab [address] [place] [phone] Antonio Marquez MD [facility] DERMATOLOGY [address] [place] [phone] Other follicular cysts of the skin and subcutaneous tissue; Other disturbances of skin sensation Social History Tobacco Use Types Packs/Day Years Used Date Smoking Tobacco: Former Cigarettes 30 1 982 - 2011 Smokeless Tobacco: Never Alcohol Use Standard Drinks/Week Comments No 0 (1 standard drink = 0.6 oz pur e alcohol) Sex and Gender Information Value Date Recorded Sex Assigned at Not on file 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 Answer Date of Assessment Author No 04/21/2018 1:12 AM Ashly Nguyen RN * Is person blind or have serious difficulty seeing? Answer Date of Assessment Author No 04/21/2018 1:12 AM Ashly Nguyen RN * Does person have serious difficulty walking/climbing stairs? Answer Date of Assessment Author Yes 04/21/2018 1:12 AM Ashly Nguyen RN * Does person have difficulty dressing/bathing? Answer Date of Assessment Author No 04/21/2018 1:12 AM Ashly Nguyen RN * Does person have difficulty doing errands alone? Answer Date of Assessment Author Yes 04/21/2018 1:12 AM Ashly Nguyen RN documented as of this encounter Mental Status * Does person have difficulty concentrating/remembering/making decisions? Answer Entry Date Author No 04/21/2018 1:12 AM Ashly Nguyen RN documented in this encounter Plan of Treatment Not on file documented as of this encounter Procedures Procedure Name Priority Date/Time Associated Diagnosis Comments DERMATOPATHOLOGY Routine 09/16/2023 3:33 AM CDT Other follicular cysts of the skin and subcutaneous tissue Other disturbances of skin sensation documented in this encounter Results * DERMATOPATHOLOGY (09/16/2023 3:33 AM CDT) Case Report Dermatopathology Report Case: [id number] Authorizing Provider: Antonio Marquez MD Collected: 09/16/2023 03:33 AM Ordering Location: [facility] - Received: 09/17/2023 01:29 PM DermPath Lab Pathologist: Susy Tilley MD Specimen: Skin, right lateral neck 4 12:43 PM CDT DERMATOPATHOLOGY LABORATORY Final Diagnosis Specimen A. SKIN, right lateral neck: EPIDERMOID CYST (L72.0) NOT PRESENT AT SAMPLED MARGIN 4 12:43 PM CDT DERMATOPATHOLOGY LABORATORY at 1243 CDT Clinical History Cyst. Check Margins 4 12:43 PM CDT DERMATOPATHOLOGY LABORATORY Gross Description Specimen A: Received is one formalin filled container labeled with the patient's name and designated right lateral neck. The specimen consists of a piece of skin measuring 14x5x8 mm. The specimen is bisected lengthwise and submitted in 1 cassette. Jar 0. 4 12:43 PM CDT DERMATOPATHOLOGY LABORATORY Microscopic Description Specimen A. SKIN, right lateral neck: Within the dermis, there is a space lined by epithelium that resembles normal epidermis and the infundibular portion of the hair follicle. This lesion is not present at the sampled margin of the specimen. 4 12:43 PM CDT DERMATOPATHOLOGY LABORATORY Disclaimer An external and internal positive and negative controls are appropriate for the histochemical, immunohistochemical and immunofluorescence stain(s) in this case (if any), except where stated explicitly. The performance characteristics of the stain(s) cited in this report were developed and its performance characteristic determined by the Dermatopathology Laboratory at [facility], directed by Dr. John Rodríguez. These tests need not be, and therefore are not, approved by the [place] Food and Drug Administration. The tests are used for clinical purposes. Billing Codes Specimen Charges Stain Charges 38246 1 4 12:43 PM CDT DERMATOPATHOLOGY LABORATORY Embedded Images 4 12:43 PM CDT DERMATOPATHOLOGY LABORATORY Pathology/Cytolo gy TISSUE SPECIMEN FROM SKIN / Unknown 09/16/2023 3:33 AM CDT 09/17/2023 1:29 PM CDT Antonio Marquez MD LAB - PATHOLOGY/CYTOLOGY [facility]A Final Result DERMATOPATHOLOGY LABORATORY [facility] - Department of Dermatology [address], [address] [phone] documented in this encounter Visit Diagnoses Diagnosis Other follicular cysts of the skin and subcutaneous tissue Other disturbances of skin sensation documented in this encounter Care Teams Outside Parts Sales Relationship Specialty Start Date End Date Lupillo Sweet MD [address] [place] [phone] PCP - General Family Medicine 04/20/18 documented as of this encounter
--- OUTSIDE RECORDS SUMMARY | 2025-02-12 01:24 | XMS_ITS | Encounter Summary ---
Author Organization [facility] Address [address] [place] [address] Care Team Providers Care Workers Compensation Claims Specialist Name Role Phone Lupillo Sweet MD Primary Care Provider + Encounter Details Date Type Department Care Team (Late st Contact Info) Description 09/28/2023 Lab Requisition [facility] - DermPath Lab [address], [place] [phone] Antonio Marquez MD [facility] DERMATOLOGY [address] [place] [phone] Squamous cell carcinoma of skin of right upper limb, including shoulder Social History Tobacco Use Types Packs/Day Years Used Date Smoking Tobacco: Former Cigarettes 30 1 982 - 2011 Smokeless Tobacco: Never Alcohol Use Standard Drinks/Week Comments No 0 (1 standard drink = 0.6 oz pur e alcohol) Sex and Gender Information Value Date Recorded Sex Assigned at Not on file Legal Sex Male 11:32 AM VOICE 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 Gender Identity Not on file Sexual Orientation [...] Priority Date/Time Associated Diagnosis Comments DERMATOPATHOLOGY Routine 09/28/2023 3:33 AM CDT Squamous cell carcinoma of skin of right upper limb, including shoulder documented in this encounter Results * DERMATOPATHOLOGY (09/28/2023 3:33 AM CDT) Case Report Dermatopathology Report Case: [id number] Authorizing Provider: Antonio Marquez MD Collected: 09/28/2023 03:33 AM Ordering Location: [facility] - Received: 09/29/2023 01:34 PM DermPath Lab Pathologist: Beverly Tilley MD Specimen: Skin, right upper arm 4 3:47 PM CDT DERMATOPATHOLOGY LABORATORY Final Diagnosis Specimen A. SKIN, right upper arm: DERMAL SCAR RESIDUAL BASAL CELL CARCINOMA NOT IDENTIFIED (L90.5) 4 3:47 PM CDT DERMATOPATHOLOGY LABORATORY at 1547 CDT Clinical History Squamous Cell Carcinoma 4 3:47 PM CDT DERMATOPATHOLOGY LABORATORY Gross Description Specimen A: Received is one formalin filled container labeled with the patient's name and designated right upper arm. The specimen consists of a non-oriented ellipse of skin measuring 99r33f1 mm. The margin is inked green. The 12 o'clock and 6 o'clock tips are submitted in cassette 1. The remainder of the ellipse is serially sectioned and submitted in cassette 2 - 3. Jar 0. 4 3:47 PM CDT DERMATOPATHOLOGY LABORATORY Microscopic Description Specimen A. SKIN, right upper arm: There are fibroblasts and collagen bundles oriented parallel to the skin surface. There are elongated blood vessels, some of which are oriented perpendicular to the skin surface. No basal cell carcinoma is identified. 4 3:47 PM CDT DERMATOPATHOLOGY LABORATORY Disclaimer An external and internal positive and negative controls are appropriate for the histochemical, immunohistochemical and immunofluorescence stain(s) in this case (if any), except where stated explicitly. The performance characteristics of the stain(s) cited in this report were developed and its performance characteristic determined by the Dermatopathology Laboratory at [facility], directed by Dr. John Rodríguez. These tests need not be, and therefore are not, approved by the [place] Food and Drug Administration. The tests are used for clinical purposes. Billing Codes Specimen Charges Stain Charges 96574 1 4 3:47 PM CDT DERMATOPATHOLOGY LABORATORY Embedded Images 4 3:47 PM CDT DERMATOPATHOLOGY LABORATORY Pathology/Cytolo gy TISSUE SPECIMEN FROM SKIN / Unknown 09/28/2023 3:33 AM CDT 09/29/2023 1:34 PM CDT Antonio Marquez MD LAB - PATHOLOGY/CYTOLOGY [facility]URA Final Result DERMATOPATHOLOGY LABORATORY [facility] - Department of Dermatology [address] [phone] documented in this encounter Visit Diagnoses Diagnosis Squamous cell carcinoma of skin of right upper limb, including shoulder Squamous cell carcinoma of skin of upper limb, including shoulder documented in this encounter Care Teams Workers Compensation Claims Specialist Relationship Specialty Start Date End Date Lupillo Sweet MD [address] [address] PCP - General Family Medicine 04/20/18 documented as of this encounter
--- OUTSIDE RECORDS SUMMARY | 2025-02-12 01:25 | XMS_ITS | Encounter Summary ---
Author Organization [facility] Address [address] [place] [address] Care Team Providers Care D[employer] Vat Worker Name Role Phone Lupillo Sweet MD Primary Care Provider + Encounter Details Date Type Department Care Team (Late st Contact Info) Description 12/21/2024 Lab Requisition [facility] - DermPath Lab [address] [facility] [place] [phone] Antonio Marquez MD [facility] DERMATOLOGY [address] [place] [phone] Neoplasm of uncertain behavior of skin Social History Tobacco Use Types Packs/Day Years Used Date Smoking Tobacco: Former Cigarettes 30 1 982 - 2011 Smokeless Tobacco: Never Alcohol Use Standard Drinks/Week Comments No 0 (1 standard drink = 0.6 oz pur e alcohol) Sex and Gender Information Value Date Recorded Sex Assigned at Not on file Legal Sex Male 11:32 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 Gender Identity Not on file Sexual Orientation [...] Priority Date/Time Associated Diagnosis Comments DERMATOPATHOLOGY Routine 12/21/2024 12:0 0 AM CDT Neoplasm of uncertain behavior of skin documented in this encounter Results * DERMATOPATHOLOGY (12/21/2024 12:00 AM CDT) Case Report Dermatopathology Report Case: [id number] Authorizing Provider: Antonio Marquez MD Collected: 12/21/2024 12:00 AM Ordering Location: [facility] - Received: 12/25/2024 08:04 AM DermPath Lab Pathologist: Dane Rodríguez MD Specimens: A) - Skin, right lateral wrist B) - Skin, right bicep 4:33 PM CDT DERMATOPATHOLOGY LABORATORY Final Diagnosis Specimen A. SKIN, right lateral wrist: BENIGN VERRUCOUS KERATOSIS (L82.1) FOLLICULITIS, SUPPURATIVE (L73.8) Specimen B. SKIN, right bicep: SQUAMOUS CELL CARCINOMA IN SITU (CONNER'S DISEASE) (D04.61) EPIDERMAL NECROSIS SUGGESTIVE OF EXCORIATION (L98.499) 4:33 PM CDT DERMATOPATHOLOGY LABORATORY at 1633 CDT Clinical History A-B: SCC 4:33 PM CDT DERMATOPATHOLOGY LABORATORY Gross Description Specimen A: Received is one formalin filled container labeled with the patient's name and designated right lateral wrist. The specimen consists of a shave biopsy measuring 6x6x2 mm. Jar 0. Specimen B: Received is one formalin filled container labeled with the patient's name and designated right bicep. The specimen consists of a shave biopsy measuring 7x5x2 mm. Jar 0. 4:33 PM CDT DERMATOPATHOLOGY LABORATORY Microscopic Description Specimen A. SKIN, right lateral wrist: Sections show hyperkeratosis, papillomatosis, hypergranulosis, and acanthosis. These histological findings can be seen in a verruca vulgaris or a seborrheic keratosis. Sections show rupture of the follicular infundibulum, with numerous neutrophils. Specimen B. SKIN, right bicep: The epidermis shows parakeratosis, full thickness disorderly maturation of keratinocytes, mitoses at different levels, and dyskeratotic cells. The epidermis is focally necrotic and covered with a scale-crust. There is fibrin at the base. 4:33 PM CDT DERMATOPATHOLOGY LABORATORY Disclaimer An external and internal positive and negative controls are appropriate for the histochemical, immunohistochemical and immunofluorescence stain(s) in this case (if any), except where stated explicitly. The performance characteristics of the stain(s) cited in this report were developed and its performance characteristic determined by the Dermatopathology Laboratory at [facility], directed by Dr. John Rodríguez. These tests need not be, and therefore are not, approved by the [place] Food and Drug Administration. The tests are used for clinical purposes. Billing Codes Specimen Charges Stain Charges 19891 13195 1 1 4:33 PM CDT DERMATOPATHOLOGY LABORATORY Embedded Images 4:33 PM CDT DERMATOPATHOLOGY LABORATORY Pathology/Cytology TISSUE SPECIMEN FROM SKIN / Unknown 12/21/2024 12/25/2024 8:04 AM CDT Miscellaneous samples (specimen) TISSUE SPECIMEN FROM SKIN / Unknown 12/21/2024 12/25/2024 8:04 AM CDT Antonio Marquez MD LAB - PATHOLOGY/CYTOLOGY AMP[facility] BANGURA Final Result DERMATOPATHOLOGY LABORATORY [facility] - Department of Dermatology [address] [phone] documented in this encounter Visit Diagnoses Diagnosis Neoplasm of uncertain behavior of skin documented in this encounter Care Teams D[employer] Vat Worker Relationship Specialty Start Date End Date Lupillo Sweet MD [address] [address] PCP - General Family Medicine 04/20/18 documented as of this encounter
--- OUTSIDE RECORDS SUMMARY | 2025-02-12 01:25 | XMS_ITS | Encounter Summary ---
Author Organization [facility] Address [address] [place] [address] Care Team Providers Care Field Manager Name Role Phone Lupillo Sweet MD Primary Care Provider + Encounter Details Date Type Department Care Team (Late st Contact Info) Description 05/02/2024 Lab Requisition [facility] - DermPath Lab [address] [facility] [facility] [address], [place] [phone] Macy Marquez, WHEAT WASHER-BLOCK SETTER GYPSUM [facility] DER[facility] [address] [place] [address] Neoplasm of uncertain behavior of skin Social History Tobacco Use Types Packs/Day Years Used Date Smoking Tobacco: Former Cigarettes 1 30 1 982 - 2011 Smokeless Tobacco: Never Alcohol Use Standard Drinks/Week Comments No 0 (1 standard drink = 0.6 oz pur e alcohol) Sex and Gender Information Value Date Recorded Sex Assigned at Not on file Legal Sex Male 11:32 AM TALENT ACQUISITION DIRECTOR Gender Identity Not on file Sexual Orientation [...] of Assessment Author Yes 04/21/2018 1:12 AM TALENT ACQUISITION DIRECTOR Ashly Lizama RN * Does person have difficulty dressing/bathing? Answer Date of Assessment Author No 04/21/2018 1:12 AM TALENT ACQUISITION DIRECTOR Ashly Lizama RN * Does person have difficulty doing errands alone? Answer Date of Assessment Author Yes 04/21/2018 1:12 AM TALENT ACQUISITION DIRECTOR Ashly Lizama RN documented as of this encounter Mental Status * Does person have difficulty concentrating/remembering/making decisions? Answer Entry Date Author No 04/21/2018 1:12 AM TALENT ACQUISITION DIRECTOR Ashly Lizama RN documented in this encounter Plan of Treatment Not on file documented as of this encounter Procedures Procedure Name Priority Date/Time Associated Diagnosis Comments DERMATOPATHOLOGY Routine 05/02/2024 12:0 0 AM TALENT ACQUISITION DIRECTOR Neoplasm of uncertain behavior of skin documented in this encounter Results * DERMATOPATHOLOGY (05/02/2024 12:00 AM TALENT ACQUISITION DIRECTOR) Case Report Dermatopathology Report Case: [id number] Authorizing Provider: Macy Marquez, Collected: 05/02/2024 12:00 AM WHEAT WASHER-BLOCK SETTER GYPSUM Ordering Location: [facility] - Received: 05/03/2024 10:19 AM DermPath Lab Pathologist: Susy Tilley MD Specimens: A) - Skin, right elbow B) - Skin, left forearm 1:09 PM [facility] DERMATOPATHOLOGY [facility]ORATORY Final Diagnosis Specimen A. SKIN, right elbow: HYPERPLASTIC (HYPERTROPHIC) ACTINIC KERATOSIS (L57.0) BENIGN VERRUCOUS KERATOSIS (L82.1) DERMAL SCAR WITH OVERLYING EPIDERMAL NECROSIS SUGGESTIVE OF EXCORIATION (L98.499) (see microscopic description) Specimen B. SKIN, left forearm: FOLLICULITIS, SUPPURATIVE; IN ASSOCIATION WITH INTRAFOLLICULAR BACTERIA (L73.8) EPIDERMAL NECROSIS SUGGESTIVE OF EXCORIATION, IMPETIGINIZED (L98.499) (see microscopic description and comment) 4 1:09 PM [facility] DERMATOPATHOLOGY LABORATORY at 1309 TALENT ACQUISITION DIRECTOR Clinical History SCC 1:09 PM [facility] DERMATOPATH[facility]Y [facility]ORATORY Gross Description Specimen A: Received is one formalin filled container labeled with the patient's name and designated right elbow. The specimen consists of a shave biopsy measuring 8x7x3 mm. Jar 0. Specimen B: Received is one formalin filled container labeled with the patient's name and designated left forearm. The specimen consists of a shave biopsy measuring 10x8x1 mm. Jar 0. 1:09 PM [facility] DERMATOPATHOLOGY [facility]ORATORY Microscopic Description Specimen A. SKIN, right elbow: There is hyperkeratosis alternating with parakeratosis. There is epidermal hyperplasia with disorderly maturation of keratinocytes with nuclear pleomorphism confined to the lower half of the epidermis. Sections also show adjacent hyperkeratosis, papillomatosis, hypergranulosis, and acanthosis. These latter histological findings can be seen in a verruca vulgaris or a seborrheic keratosis. Prurigo nodularis was also considered. There are fibroblasts and collagen bundles oriented parallel to the skin surface with elongated blood vessels, some of which are oriented perpendicular to the skin surface. Within the dermis there are also dilated thin-walled vessels lined by a single layer of endothelium noted. The epidermis is focally necrotic and covered with a scale-crust. There is fibrin at the base. Specimen B. SKIN, left forearm: Sections show rupture of the follicular infundibulum, with numerous neutrophils. There is an associated dermal mixed infiltrate. The epidermis is focally necrotic and covered with a scale-crust and associated bacterial clusters. There is fibrin at the base. Gram stain reveals intrafollicular bacteria as well as bacteria associated with the superficial aspect of the excoriation. Grocott's methenamine silver (GMS) stain is negative for fungal elements in the sections examined. Austin stain is negative for mycobacteria. COMMENT: Clinical correlation with culture is recommended if clinically indicated. 4 1:09 PM [facility] DERMATOPATHOLOGY [facility]ORATORY Disclaimer An external and internal positive and negative controls are appropriate for the histochemical, immunohistochemical and immunofluorescence stain(s) in this case (if any), except where stated explicitly. The performance characteristics of the stain(s) cited in this report were developed and its performance characteristic determined by the Dermatopathology Laboratory at [facility], directed by Dr. John Rodríguez. These tests need not be, and therefore are not, approved by the [place] Food and Drug Administration. The tests are used for clinical purposes. Billing Codes Specimen Charges Stain Charges 83290 43536 1 1 18800 82409 38617 1 1 1 4 1:09 PM TALENT ACQUISITION DIRECTOR DERMATOPATHOLOGY LABORATORY Embedded Images 4 1:09 PM TALENT ACQUISITION DIRECTOR DERMATOPATHOLOGY LABORATORY Pathology/Cytology TISSUE SPECIMEN FROM SKIN / Unknown 05/02/2024 05/03/2024 10:19 AM TALENT ACQUISITION DIRECTOR Miscellaneous samples (specimen) TISSUE SPECIMEN FROM SKIN / Unknown 05/02/2024 05/03/2024 10:19 AM TALENT ACQUISITION DIRECTOR Macy Marquez WHEAT WASHER-BLOCK SETTER GYPSUM LAB - PATHOLOGY/CY TOLOGY ORDERABLES Final Result DERMATOPATHOLOGY LABORATORY [facility] - Department of Dermatology [facility] Specialized Medicine [address] [place] [address], [address] [phone] documented in this encounter Visit Diagnoses Diagnosis Neoplasm of uncertain behavior of skin documented in this encounter Care Teams Field Manager Relationship Specialty Start Date End Date Lupillo Sweet MD [address] [place] [id number] PCP - General Family Medicine 04/20/18 documented as of this encounter
--- OUTSIDE RECORDS SUMMARY | 2025-02-12 01:25 | XMS_ITS | Encounter Summary ---
Author Organization [facility] Address [address] [place] [address] Care Team Providers Care General Counselor Name Role Phone Lupillo Sweet MD Primary Care Provider + Encounter Details Date Type Department Care Team (Late st Contact Info) Description 06/03/2023 Lab Requisition [facility] - DermPath Lab [address] [facility], [place] [phone] Antonio Marquez MD [facility] DERMATOLOGY [address] [place] [phone] Neoplasm of uncertain behavior of skin Social History Tobacco Use Types Packs/Day Years Used Date Smoking Tobacco: Former Cigarettes 30 1 982 - 2011 Smokeless Tobacco: Never Alcohol Use Standard Drinks/Week Comments No 0 (1 standard drink = 0.6 oz pur e alcohol) Sex and Gender Information Value Date Recorded Sex Assigned at Not on file Legal Sex Male 11:32 AM NICK SETTER Gender Identity Not on file Sexual Orientation [...] of Assessment Author Yes 04/21/2018 1:12 AM NICK SETTER Ashly Lizama RN * Does person have difficulty dressing/bathing? Answer Date of Assessment Author No 04/21/2018 1:12 AM NICK SETTER Ashly Lizama RN * Does person have [...] Priority Date/Time Associated Diagnosis Comments DERMATOPATHOLOGY Routine 06/03/2023 3:33 AM NICK SETTER Neoplasm of uncertain behavior of skin documented in this encounter Results * DERMATOPATHOLOGY (06/03/2023 3:33 AM NICK SETTER) Case Report Dermatopathology Report Case: [id number] Authorizing Provider: Antonio Marquez MD Collected: 06/03/2023 03:33 AM Ordering Location: [facility] DermPath Lab Received: 06/08/2023 06:58 AM Pathologist: Beverly Tilley MD Specimen: Skin, right upper arm 3 2:43 PM [facility] DERMATOPATHOLOGY LABORATORY Final Diagnosis Specimen A. SKIN, right upper arm: SQUAMOUS CELL CARCINOMA, KERATOACANTHOMA TYPE (C44.622) 3 2:43 PM [facility] DERMATOPATHOLOGY LABORATORY at [address] [facility] Clinical History Squamous Cell Carcinoma 3 2:43 PM [facility] DERMATOPATHOLOGY LABORATORY Gross Description Specimen A: Received is one formalin filled container labeled with the patient's name and designated right upper arm. The specimen consists of a shave biopsy measuring 10x9x3 mm. Jar 0. 3 2:43 PM [facility] DERMATOPATHOLOGY LABORATORY Microscopic Description Specimen A. SKIN, right upper arm: Sections show an endo exophytic crateriform lesion with a keratotic plug, formed by confluent follicle-like structures with relatively large keratinocytes. Additional deeper sections were obtained and reviewed. 3 2:43 PM [facility] DERMATOPATHOLOGY LABORATORY Disclaimer An external and internal positive and negative controls are appropriate for the histochemical, immunohistochemical and immunofluorescence stain(s) in this case (if any), except where stated explicitly. The performance characteristics of the stain(s) cited in this report were developed and its performance characteristic determined by the Dermatopathology Laboratory at [facility], directed by Dr. John Rodríguez. These tests need not be, and therefore are not, approved by the [place] Food and Drug Administration. The tests are used for clinical purposes. Billing Codes Specimen Charges Stain Charges 75524 1 3 2:43 PM NICK SETTER DERMATOPATHOLOGY LABORATORY Embedded Images 3 2:43 PM NICK SETTER DERMATOPATHOLOGY LABORATORY Pathology/Cytolo gy TISSUE SPECIMEN FROM SKIN / Unknown 06/03/2023 3:33 AM NICK SETTER 06/08/2023 6:58 AM NICK SETTER Antonio Marquez MD LAB - PATHOLOGY/CYTOLOGY [facility]EE [facility] Final Result DERMATOPATHOLOGY LABORATORY [facility] - Department of Dermatology [facility] Specialized Medicine [address] [place] [address], [address] [phone] documented in this encounter Visit Diagnoses Diagnosis Neoplasm of uncertain behavior of skin documented in this encounter Care Teams General Counselor Relationship Specialty Start Date End Date Lupillo Sweet MD [address] [address] PCP - General Family Medicine 04/20/18 documented as of this encounter
--- OUTSIDE RECORDS SUMMARY | 2025-02-12 01:25 | XMS_ITS | Clinical Summary ---
Author Organization [facility] Address [address], [address] [address] Phone Care Team Providers Care Metal And Plastic Heater Name Role Phone Lupillo Sweet MD Primary Care Provider + Yuliana Loja DO Unavailable [phone] Richy Montejo DO Unavailable [phone] Immunizations Immunization Administration Dates Next Due Covid-19, Mrna, Lnp-s, Pf, 30 Mcg/0.3 Ml Dose (P fizer) 08/12/2020,07/22/2020 Social History Tobacco Use Types Packs/Day Years Used Date Smoking Tobacco: Never Assessed Sex and Gender Information Value Date Recorded Sex Assigned at Not on file Legal Sex Male 11:22 PM CDT Gender Identity Not on file Sexual Orientation Not on file Plan of Treatment Health Maintenance Due Date Last Done Comments Hepatitis C Virus (HCV) Screening 1945 TdaP Immunization 1945 Pneumococcal Immunization (5 0+ years) (1 of 1 - PCV) 1997 Zoster Immunization (1 of 2) 1997 Respiratory Syncytial Virus (RSV) Immunization (Adult) (1 - 1-dose 75+ series) 2022 SARS-COV-2 Immunization (4 - season) 2024 04/08/2021, 08/12/2020, 07/22/2020 Influenza Immunization (#1) 2025 05/27/2016 Hepatitis B Immunization Aged Out No longer eligible based on patient's age to complete this topic Human Papillomavirus (HPV) Immunization Aged Out No longer eligible b ased on patient's age to complete this topic Meningococcal Immunization (ACWY) Aged Out No longer eligible b ased on patient's age to complete this topic Rotavirus Immunization Aged Out No lo nger eligible based on patient's age to complete this topic Insurance MEDICARE C [employer] Care Teams Metal And Plastic Heater Relationship Specialty Start Date End Date Lupillo Sweet MD PCP - General Family Medicine 05/10/18 Yuliana Loja DO [address] [place] [address] Internal Medicine 05/10/18 Richy Montejo DO [address] [place] [address] Gastroenterology 05/10/18
--- OUTSIDE RECORDS SUMMARY | 2025-02-12 01:25 | XMS_ITS | Clinical Summary ---
Author Organization [facility] Address [address] [place] [address] Care Team Providers Care Engraver Hand Soft Metals Name Role Phone Unavailable Primary Care Provider Unavailabl e Social History Tobacco Use Types Packs/Day Years Used Date Smoking Tobacco: Never Assessed Sex and Gender Information Value Date Recorded Sex Assigned at Not on file Legal Sex Male 7:45 PM CDT Gender Identity Not on file Sexual Orientation Not on file Plan of Treatment Health Maintenance Due Date Last Done Comments Hepatitis C 1963 DTaP, Tdap and Td Vaccines ( 1 - Tdap) 1966 Pneumococcal Vaccine: 50+ Ye ars (1 of 1 - PCV) 1997 Zoster Vaccines (1 of 2) 1997 RSV Immunization or 60+ Years (1 - 1-dose 75+ series) 2022 COVID-19 Vaccine ( - 2023-2 5 season) 2024 Meningococcal B Vaccine Aged Out No l onger eligible based on patient's age to complete this topic Meningococcal Vaccine Aged Out No william jorge luis eligible based on patient's age to complete this topic RSV Immunizations Under 20 Months Aged Out No longer eligible based on patient's age to complete this topic
--- OUTSIDE RECORDS SUMMARY | 2025-02-12 01:25 | XMS_ITS | Clinical Summary ---
Author Organization [facility] Address [address] [place] [address] Care Team Providers Care Radio Artist Name Role Phone Lupillo Sweet MD Primary Care Provider + Source Comments [facility],non-[facility] Affiliates and Associated Physician Practices is amultiple site organization consisting of ambulatory clinics and hospital sitesin [place], [place], [place] and [place]. This disclosure is being madepursuant to the Care Everywhere program and may not contain all information available regarding this patient. Last updated 18.[facility] Allergies Active Allergy Reactions Criticality Noted Date Comments Sulfa Drugs Anaphylaxis High 04/21/2018 Medications * Be aware that medications may not be up to date on this document. Alwaysverify current medications with the patient. ARIPiprazole (ABILIFY) 5 MG tablet Take 5 mg by mouth once daily Active escitalopram (LEXAPRO) 20 MG tablet Take 20 mg by mouth once daily Active mirabegron ER 24hr (MYRBETRIQ) 25 MG tablet Take 25 mg by mouth once daily Active terazosin (HYTRIN) 5 MG capsule Take 5 mg by mouth once daily Active sildenafil (VIAGRA) 25 MG tablet Take 25 mg by mouth once as needed Active traMADol (ULTRAM) 50 MG tablet Take 1 tablet by mouth every 6 hours as needed 20 tablet 04/26/2018 Active carvedilol (COREG) 12.5 MG tablet Take 2 tablets by mouth 2 times daily with morning and evening meal 60 tablet 3 04/26/2018 Active HYDROcodone-cande taminophen (NORCO) 5-325 MG tablet 05/18/2018 Active Active Problems Problem Noted Date Diagnosed Date Tobacco use disorder 04/22/2018 Pulmonary emphysema 04/22/2018 Lung nodule 04/21/2018 Splenomegaly 04/21/2018 Portal hypertension 04/21/2018 Cirrhosis 04/21/2018 Impaired mobility and ADLs 04/21/2018 Acute post-operative pain 04/21/2018 Closed displaced comminuted fracture of shaft of left femur 04/20/2018 Fall Pulmonary embolism and infarction Atrial fibrillation Encounters Date Type Department Care Team Description 12/21/2024 Lab Requisition [facility] - DermPath Lab [address] [facility] [place] [phone] Antonio Marquez MD Neoplasm of uncertain behavior of skin from Last 3 Months Social History Tobacco Use Types Packs/Day Years Used Date Smoking Tobacco: Former Cigarettes 1 30 1 982 - 2011 Smokeless Tobacco: Never Alcohol Use Standard Drinks/Week Comments No 0 (1 standard drink = 0.6 oz pur e alcohol) Sex and Gender Information Value Date Recorded Sex Assigned at Not on file Legal Sex 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 Gender Identity Not on file Sexual Orientation Not on file Last Filed Vital Signs Vital Sign Reading Time Taken Comments Blood Pressure 145/59 04/26/2018 3:34 PM 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 Pulse 91 04/26/2018 3:34 PM 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 Temperature 37.1 C (98.7 F) 04/26/2018 3:34 PM 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 Respiratory Rate 16 04/26/2018 3:34 PM 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 Oxygen Saturation 98% 04/26/2018 3:34 PM 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 Inhaled Oxygen Concentration 50% 04/21/2018 5 :20 PM 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 Weight 79.4 kg (175 lb) 06/15/2018 12:45 PM 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 Height 182.9 cm (6') 06/15/2018 12:45 PM 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 Body Mass Index 23.73 06/15/2018 12:45 PM 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 Plan of Treatment Health Maintenance Due Date Last Done Comments MEDICARE AWV 12 MONTHS 1945 HEPATITIS C SCREENING 02/19/1963 DTAP/TDAP/TD VACCINES (1 - Tdap) 1966 PNEUMOCOCCAL VACCINE 50+ (1 of 2 - PCV) 1966 LUNG CANCER SCREENING 1997 ZOSTER VACCINE (1 of 2) 1997 HEPATITIS B VACCINE (1 of 3 - Risk 3-dose series) 2007 Respiratory Syncytial Virus (RSV) Vaccine Pt: or over 60 yrs (1 - 1-dose 75+ series) 2022 COVID-19 VACCINE (1 - 2023-2 5 season) 2024 DEPRESSION SCREENING 06/14/2024 INFLUENZA VACCINE (#1) 2025 HIB VACCINE Aged Out No longer eligi ble based on patient's age to complete this topic HPV VACCINE Aged Out No longer eligi ble based on patient's age to complete this topic MENINGOCOCCAL (Group B) VACC INE SHARED DECISION-MAKING Aged Out No longer eligibl e based on patient's age to complete this topic MENINGOCOCCAL GROUPS A/C/Y/W VACCINE Aged Out No longer eligible b ased on patient's age to complete this topic Medical Devices Implanted Type Area Licensed Investment Sales Assistant Device Identifier Shelf Expiration Date Model / Serial / Lot Nail 15mm 42cm Im Fem Tmx Versanail Unv Implanted:Qty: 1 on 04/21/2018 by Rachel Alegria MD at [facility] Left: Femur [employer]i [employer] [id number] / / [id number] Wshr 12.7mm 6.5mm Set Unv Orth Ss 1mm Implanted:Qty: 2 on 04/21/2018 by Rachel Alegria MD at [facility] Left: Femur [employer]ley [employer] Nephew Trauma [id number] / / Screw 7mm 95mm Ft Orth Reina Ss Strl Bone Implanted:Qty: 2 on 04/21/2018 by Rachel Alegria MD at [facility] Left: Femur [employer] Trauma [id number] / / Screw 6.5mm 95mm Ft Lng Bone Sm Bone Implanted:Qty: 1 on 04/21/2018 by Rachel Alegria MD at [facility] Left: Femur [employer] Trauma [id number] / / Screw 6.5mm 70mm Ft Elliot Prox Sld Implanted:Qty: 1 on 04/21/2018 by Rachel Alegria MD at [facility] Left: Femur [employer] 1020-70 / / Screw 6.5mm 80mm Ft Fem Elliot Prox Selp Implanted:Qty: 1 on 04/21/2018 by Rachel Alegria MD at [facility] Left: Femur [employer] 1020-80 / / Screw 6.5mm 85mm Ft Elliot Prox Sld Implanted:Qty: 1 on 04/21/2018 by Rachel Alegria MD at [facility] Left: Femur [employer] [id number] / / Screw 4.5mm 46mm Ft Elliot Sld Slf-Tap Art Implanted:Qty: 1 on 04/21/2018 by Rachel Alegria MD at [facility] Left: Femur [employer] [id number] / / Screw 4.5mm 48mm Ft Elliot Sld Slf-Tap Art Implanted:Qty: 1 on 04/21/2018 by Rachel Algeria MD at [facility] Left: Femur [employer] [id number] / / Wshr Rnd Orth 12.7mm Implanted:Qty: 1 on 04/21/2018 by Rachel Alegria MD at [facility] Left: Femur [employer]uma [id number] / / Explanted Type Area Licensed Investment Sales Assistant Device Identifier Shelf Expiration Date Model / Serial / Lot Pin Extfix 375mm 5mm 7mm Lng Trc 50mm Explanted:Qty: 1 on 04/21/2018 by Rachel Alegria MD at [facility] Left: Femur [employer] [id number] / / Screw 6.5mm 90mm Ft Elliot Prox Sld Implanted:Rachel Coleman MD (Quantity not on file) Explanted:Qty: 1 on 04/21/2018 by Rachel Alegria MD at [facility] Left: Femur [employer] [id number] / / Wire K 2mm 350mm Thrd Troc Pnt 1 End Ss Explanted:Qty: 3 on 04/21/2018 by Rachel Alegria MD at [facility] Left: Femur [employer]hew Trauma 01/17/2027 [id number] / / [id number] Procedures Procedure Name Priority Date/Time Associated Diagnosis Comments DERMATOPATHOLOGY Routine 12/21/2024 12:0 0 AM CDT Neoplasm of uncertain behavior of skin from Last 3 Months Results * DERMATOPATHOLOGY (12/21/2024 12:00 AM CDT) Case Report Dermatopathology Report Case: [id number] Authorizing Provider: Antonio Marquez MD Collected: 12/21/2024 12:00 AM Ordering Location: [facility] - Received: 12/25/2024 08:04 [...] characteristic determined by the Dermatopathology Laboratory at [facility], directed by Dr. John Rodríguez. These tests need not be, and therefore are not, approved by the [place] Food and Drug Administration. The tests are used for clinical purposes. Billing Codes Specimen Charges Stain Charges 54363 95327 1 1 5 4:33 PM CDT DERMATOPATHOLOGY LABORATORY Embedded Images 4:33 PM CDT DERMATOPATHOLOGY LABORATORY Pathology/Cytology TISSUE SPECIMEN FROM SKIN / Unknown 12/21/2024 12/25/2024 8:04 AM CDT Miscellaneous samples (specimen) TISSUE SPECIMEN FROM SKIN / Unknown 12/21/2024 12/25/2024 8:04 AM CDT Antonio Marquez MD LAB - PATHOLOGY/CYTOLOGY [facility] Final Result DERMATOPATHOLOGY LABORATORY [facility] Department of Dermatology [facility] Medicine [address] [place] [address], [address] [phone] from Last 3 Months Insurance [facility] MEDICARE [id number] [place] [address] MEDICARE [employer] MED[employer]ARE [employer] MED[employer]ARE [facility] MEDICARE Member Subscriber Plan / Payer ( fective 2017-Present) Name:Neisha Fish Relation to Subscriber:Self Name:NEISHA FISH Payer ID:[id number] (NAIC) Type:Medicare-Managed Care Address: [facility] CLAIMS [address] [place] [facility] [employer] MEDICARE Member Subscriber Plan / Payer ( fective 2017-Present) Name:Neisha Fish Relation to Subscriber:Self Name:NEISHA FISH Payer ID:[id number] (NAIC) Type:Medicare-Managed Care Address: [facility] CLAIMS [address] [facility] Advance Directives * Full Code (Latest Code Status on File) Date Activated Date Inactivated Comments 04/21/2018 12:39 AM 04/26/2018 7:51 PM Care Teams Radio Artist Relationship Specialty Start Date End Date Lupillo Sweet MD [address] [address] PCP - General Family Medicine 04/20/18
--- OUTSIDE RECORDS SUMMARY | 2025-02-12 01:25 | XMS_ITS | Clinical Summary ---
Author Organization [facility] [address] Address [address] [place] [address] Care Team Providers Care Analytics Specialist Name Role Phone Lupillo Sweet MD Primary Care Prov ider Ky Sloan MD Unavailable Allergies Active Allergy Reactions Criticality Noted Date Comments Oxybutynin Chloride Other (See comments) 2019 Dry mouth Sulfa (Sulfonamide Antibiotics) Anaphylaxis High 04/21/2018 Medications escitalopram (LEXAPRO) 20 mg tablet Take 0.5 tablets (10 mg total) by mouth daily Active metoprolol tartrate (LOPRESSOR) 25 mg immediate release tabletIndications: Paroxysmal atrial fibrillation (HCC) Take 1 tablet (25 mg total) by mouth 2 (two) times a day 60 tablet 11 09/09/19 22 Active furosemide (LASIX) 40 mg tablet TAKE 1 TABLET BY MOUTH EVERY DAY. PLEASE MAKE AN APPT FOR FUTURE REFILLS 90 tablet 3 11/08/19 24 Active Additional Information Patient taking differently: 80 mg oral Daily, Reported on 01/03/2025 ipratropium (ATROVENT) 21 mcg (0.03 %) nasal spray ADMINISTER 2 SPRAYS INTO EACH NOSTRIL 3 TIMES A DAY. 30 mL 5 01/19/20 24 Active aspirin 81 mg enteric coated tablet Take 1 tablet (81 mg total) by mouth daily 11/27/19 22 Active fluticasone propionate (FLONASE) 50 mcg/actuation nasal spray Administer 2 sprays into each nostril daily Active AMILoride (MIDAMOR) 5 mg tablet Take 2 tablets (10 mg total) by mouth daily Active tiotropium-olodate roL (Stiolto Respimat) 2.5-2.5 mcg/actuation inhaler Inhale 2 puffs daily Active magnesium gluconate (MAGONATE) 27.5 mg magne- sium (500 mg) tabletIndications: hypomagnesemia Take 1 tablet (500 mg total) by mouth daily Active melatonin 10 mg tablet Take 1 tablet (10 mg total) by mouth nightly Active loperamide (IMODIUM A-D) 2 mg tablet Take 1 tablet (2 mg total) by mouth 3 (three) times a day as needed for diarrhea Active pancrelipase (CREON) 6,000 units of lipase capsuleIndications :exocrine pancreatic insufficiency Take 1 capsule by mouth 3 (three) times a day with meals Active psyllium 0.52 gram capsule Take 1 capsule (0.52 g total) by mouth daily Active dicyclomine (BENTYL) 10 mg capsule Take 1 capsule (10 mg total) by mouth 4 (four) times a day before meals and nightly Active amitriptyline (ELAVIL) 10 mg tablet Take 1 tablet (10 mg total) by mouth nightly Active omeprazole (PriLOSEC) 40 mg capsule Take 1 capsule (40 mg total) by mouth 2 (two) times a day Active ibuprofen (ADVIL,MOTRIN) 400 mg tablet Take 1 tablet (400 mg total) by mouth every 6 (six) hours as needed for pain 60 tablet 05/24/20 24 Active docusate sodium (DOK) 100 mg tabletIndications: constipation Take 1 tablet (100 mg total) by mouth 2 (two) times a day for 10 days 20 tablet 05/24/20 24 Active rifAXIMin (XIFAXAN) 550 mg tabletIndications: Hepatic Encephalopathy Take 1 tablet (550 mg total) by mouth 2 (two) times a day Active traMADoL (ULTRAM) 50 mg tablet Take 1 tablet (50 mg total) by mouth every 8 (eight) hours as needed for pain 20 tablet 01/05/20 25 Active Active Problems Problem Noted Date Diagnosed Date Multiple closed fractures of ribs of left side 0 01/04/2025 Precordial pain 01/03/2025 Gastroesophageal reflux disease 05/09/2024 Mild cognitive disorder 05/09/2024 Paroxysmal atrial fibrillation 01/08/2022 Obstructive sleep apnea (adult) (pediatric) 04/14 Chronic obstructive pulmonary disease, unspecifi ed 04/26/2018 Encounters Date Type Department Care Team Description 01/02/2025 9:00 PM CDT - 01/04/2025 3:52 PM CDT Hospital Encounter [place] [address] [facility] [address] [address] [place] [address] David Johnson MD Sada, Kahmalia-Kalee Conceptia, MD Patel, Satyen V., MD Precordial pain (Primary Dx); Closed fracture of multiple ribs of left side, initial encounter; Lower extremity edema; Paroxysmal atrial fibrillation (HCC) Discharge Disposition: Discharge to home, home health skilled care from Last 3 Months Surgical History Surgery Date Site/Laterality Comments 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 Left TOTAL HIP ARTHROPLASTY 06/14/2021 - 07/14/2021 Right partial ORIF FEMUR FRACTURE 06/14/2019 - 06/13/2020 Left marianela from hip to knee ELBOW FRACTURE SURGERY 06/14/1989 - 06/13/1990 Left compound fx MUSCLE FLAP Left latissimus dorsi muscle flap to left calf--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 Medical History Medical History Date Comments Atrial fibrillation (HCC) 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 Sleep apnea BPH (benign prostatic hyperplasia) Covid 07/07/2021 Pulmonary embolism 07/24/2021 post Covid Paroxysmal atrial fibrillation (HCC) 01/08/2022 Obstructive sleep apnea (jc lt) (pediatric) 04/26/2018 does not use CPAP Chronic obstructive pulmonar y disease, unspecified 04/26/2018 History of leg amputation (HCC) 1989 left lower leg GERD (gastroesophageal reflux disease) Infectious viral hepatitis Family History Medical History Relation Name Comments Diabetes Father Relation Name Status Comments Brother Alive Father (Age 85) Mother (Age 97) Social History Tobacco Use Types Packs/Day Years Used Date Smoking Tobacco: Former Tobacco Cessation:Counseling Given: Not Answered [facility] Utilities Answer Date Recorded In the past 12 months has Cash Check Card, gas, oil, or water company threatened to shut off services in your home? No 01/03/2025 Social Connection and Isolation Panel Answer Date Recorded In a typical week, how many times do you talk on the phone with family, friends, or neighbors? More than three times a week 01/03/2025 How often do you get togethe r with friends or relatives? More than three times a week 01/03/2025 How often do you attend chur ch or baptism services? Never 01/03/2025 Do you belong to any clubs o r organizations such as anabaptism groups, unions, fraternal or athletic groups, or school groups? No 01/03/2025 How often do you attend meet ings of the clubs or organizations you belong to? Never 01/03/2025 Are you , , di vorced, , never , or living with a partner? 01/03/2025 AUDIT-C Answer Date Recorded Q1: How often do you have a drink containing alcohol? Never 05/24/2024 Q2: How many drinks containi ng alcohol do you have on a typical day when you are drinking? Patient does not drink Q3: How often do you have si x or more drinks on one occasion? Never 05/24/2024 Overall Financial Resource Strain (CARDIA) Answe r Date Recorded How hard is it for you to pa y for the very basics like food, housing, medical care, and heating? Not very hard 01/03/2025 Hunger Vital Sign Answer Date Recorded Within the past 12 months, y ou worried that your food would run out before you got the money to buy more. Never true 01/04/20 25 Within the past 12 months, t he food you bought just didn't last and you didn't have money to get more. Never true 01/03/2025 PRAPARE - Transportation Answer Date Re corded In the past 12 months, has l ack of transportation kept you from medical appointments or from getting medications? No 12/13 In the past 12 months, has l ack of transportation kept you from meetings, work, or from getting things needed for daily living? No 01/03/2025 Housing Stability Vital Sign Answer Keith e Recorded In the last 12 months, was t here a time when you were not able to pay the mortgage or rent on time? No 01/03/2025 In the past 12 months, how m any times have you moved where you were living? 0 01/03/2025 At any time in the past 12 m [facility], were you homeless or living in a fpc (including now)? No 01/03/2025 Personal Safety Answer Date Recorded Have you ever been in or are you currently in a harmful physical or emotional relationship or is someone making you feel afraid or unsafe? 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 Gender Identity Not on file Sexual Orientation Not on file Obstetrics History Last Filed Vital Signs Vital Sign Reading Time Taken Comments Blood Pressure 128/66 01/04/2025 7:16 AM CDT Pulse 70 01/04/2025 9:51 AM CDT Temperature 37.1 C (98.8 F) 01/04/2025 7:16 AM CDT Respiratory Rate 18 01/04/2025 7:16 AM CDT Oxygen Saturation 93% 01/04/2025 7:16 AM CDT Inhaled Oxygen Concentration - - Weight 77.1 kg (169 lb 15.6 oz) 01/03/2025 2:40 AM CDT Height 182.9 cm (6') 01/03/2025 2:40 AM CDT Body Mass Index 23.05 01/03/2025 2:40 AM CDT Plan of Treatment Health Maintenance Due Date Last Done Comments Depression Screening 1945 Hepatitis C Screening 1945 Well Visit 65+ 02/25/2012 Covid-19 Vaccine (4 - 2023-2 5 season) 2024 04/08/2021, 08/12/2020, 07/22/2020 Influenza Vaccine (#1) 2025 , 06/14/2022, 04/23/2020, Additional history exists Fall Risk Assessment 01/03/2026 01/03/2025 DTaP/Tdap/Td Vaccine (3 - Td or Tdap) 03/05/2027 03/05/2017, 01/21/2007 Pneumococcal vaccine 65+ Completed 08/19/2016, 0510/2014 Abdominal Aortic Aneurysm (A AA) Screen Completed 04/20/2018 Hepatitis B Screening Completed 09/23/2018 , 03/06/2005, 02/05/2005 Zoster Vaccine Completed 01/17/2021, 04/14, 03/28/2013 Procedures Procedure Name Priority Date/Time Associated Diagnosis Comments US VEIN DUPLEX LOWER EXTREMITY RIGHT LIMITED ED 01/03/2025 1:04 PM CDT STRESS TEST FOR DUAL READ IP Routine 01/03/2025 12:57 PM CDT NM MPI SPECT (REST AND/OR STRESS) MULTIPLE STUDIES IP Routine 01/03/2025 12:57 PM CDT TRANSTHORACIC ECHO (TTE) COMPLETE W DOPPLER/CF WO CONTRAST Routine 01/03/2025 12:05 PM CDT EGFR Routine 01/03/2025 6:07 AM CDT THYROID FUNCTION CASCADE Routine 01/03/2025 6:07 AM CDT HEMOGLOBIN A1C Routine 01/03/2025 6:07 AM CDT LIPID PANEL Routine 01/03/2025 6:07 AM CDT CBC WITHOUT DIFFERENTIAL Routine 01/03/2025 6:07 AM CDT BASIC METABOLIC PANEL Routine 01/03/2025 6:07 AM CDT INCENTIVE SPIROMETRY RT Routine 01/03/2025 4:00 AM CDT INCENTIVE SPIROMETRY RT Routine 01/03/2025 12:02 AM CDT INCENTIVE SPIROMETRY RT Routine 01/03/2025 12:[address] CHEST PE ABDOMEN PELVIS W CONTRAST ED 01/02/2025 9:53 PM CDT D-DIMER, QUANTITATIVE STAT 01/02/2025 8:58 PM CDT ECG 12-LEAD Routine 01/02/2025 7:48 PM CDT TROPONIN T HIGH-SENSITIVITY 4-HR Timed 01/02/2025 7:46 PM CDT ECG 12-LEAD STAT 01/02/2025 6:45 PM CDT TROPONIN T HIGH-SENSITIVITY 2-HOUR Timed 01/02/2025 5:51 PM CDT XR CHEST PA LATERAL 2 VIEWS ED 01/02/2025 4:03 PM CDT ECG 12-LEAD STAT 01/02/2025 3:51 PM CDT EGFR STAT 01/02/2025 3:51 PM CDT DIFFERENTIAL AUTO STAT 01/02/2025 3:5 1 PM CDT PRO B-TYPE NATRIURETIC PEPTIDE STAT 01/02/2025 3:51 PM CDT TROPONIN T HIGH-SENSITIVITY SERIES (BASELINE, 2HR, 4HR, 6HR) STAT 01/02/2025 3:51 PM CDT CBC WITH AUTO DIFFERENTIAL STAT 01/02/2025 3:51 PM CDT COMPREHENSIVE METABOLIC PANEL STAT 01/02/2025 3:51 PM CDT from Last 3 Months Results * US VEIN DUPLEX LOWER EXTREMITY RIGHT LIMITED, UNILATERAL (01/03/2025 1:04 PM CDT) Anatomical Region Laterality Modality Vascular Right Ultrasound 01/03/2025 12:5 5 PM CDT Narrative 01/04/2025 9:59 AM CDT Lower Extremity Venous Report Patient Name: NEISHA FISH W : 1945 (79y 10m) Gender: M Study Date: 01/03/2025 12:55:20 PM Gasoline Plant Operator: Lyndsey Johnson RDMS,EMIT Location: [place] [address] Order Provider: DAVID JOHNSON Quality: Adequate Ref Provider: DAVID JOHNSON PROCEDURES: Vascular Report: A non-invasive vascular imaging study of the right lower extremity veins was performed using B-mode ultrasound, color flow, and spectral Doppler. INDICATIONS: Right leg pain and swelling, blisters on leg. HISTORY: Left leg amputation. COMPARISONS: No prior exams. FINDINGS: Right: Negative for deep and superficial vein thrombosis in the right lower extremity. Normal compressibility and color filling, spontaneous and phasic flow, and response to distal augmentation is demonstrated in the right common femoral vein, saphenofemoral junction, proximal femoral vein, mid femoral vein, distal femoral vein, profunda vein, popliteal vein, posterior tibial veins and peroneal veins. For comparison purposes, the left common femoral vein was interrogated. The common femoral vein Doppler flow was phasic, spontaneous and responded normally to distal augmentation. Provider Notification: Prelim results are entered into Epic study notes. CONCLUSIONS: 1. There is no evidence of deep vein thrombosis in the right lower extremity. ATTESTATION: I have reviewed and interpreted the pertinent images and measurements of this study. I attest to the conclusions in the final report that is provided above. Electronically Signed By: Ko Soto MD 01/04/2025 8:39:37 AM CDT Procedure Note Ko Soto MD - 01/04/2025 Lower Extremity Venous Report Patient Name: NEISHA FISH W : 1945 (79y 10m) Gender: M Study Date: 01/03/2025 12:55:20 PM Gasoline Plant Operator: Lyndsey Johnson RDMS,T Location:[place] [address] Order Provider: DAVID JOHNSON Quality: Adequate Ref Provider: DAVID JOHNSON PROCEDURES: Vascular Report: A non-invasive vascular imaging study of the right lowerextremity veins was performed using B-mode ultrasound, color flow, and spectral Doppler. INDICATIONS: Right leg pain and swelling, blisters on leg. HISTORY: Left leg amputation. COMPARISONS: No prior exams. FINDINGS: Right: Negative for deep and superficial vein thrombosis in the rightlower extremity. Normal compressibility and color filling, spontaneous and phasic flow, andresponse to distal augmentation is demonstrated in the right common femoral vein,saphenofemoral junction, proximal femoral vein, mid femoral vein, distal femoral vein,profunda vein, popliteal vein, posterior tibial veins and peroneal veins. For comparisonpurposes, the left common femoral vein was interrogated. The common femoral vein Dopplerflow was phasic, spontaneous and responded normally to distal augmentation. Provider Notification: Prelim results are entered into Epic study notes. CONCLUSIONS: 1. There is no evidence of deep vein thrombosis in the right lowerextremity. ATTESTATION: I have reviewed and interpreted the pertinent images and measurements ofthis study. I attest to the conclusions in the final report that is provided above. Electronically Signed By: Ko Soto MD 01/04/2025 8:39:37 AM CDT us David Johnson MD [facility] [place] PROCEDURES Final Result * NM MPI SPECT (Rest and/or Stress) Multiple Studies (01/03/2025 12:57 PM CDT) Anatomical Region Laterality Modality Body N/A Nuclear Medicine 01/03/2025 1:20 PM CDT Narrative 01/03/2025 1:23 PM CDT EXAM DESCRIPTION: NM MPI SPECT (REST AND/OR STRESS) MULTIPLE STUDIES REASON FOR STUDY: Chest pain and shortness of breath. RADIOPHARMACEUTICAL: Rest: 11 mCi Tc-99m tetrofosmin Pharmacologic Stress: 33 mCi Tc-99m tetrofosmin Injection site: Left antecubital vein IV site TECHNIQUE: Standard myocardial perfusion SPECT images were obtained after resting tracer injection. Subsequently, an intravenous infusion of 0.4 mg Lexiscan was performed. Standard myocardial perfusion images were obtained after tracer injection at the peak effect of the drug. COMPARISON: None FINDINGS: Image quality is adequate at rest and adequate at stress. There are no perfusion abnormalities. The left ventricular cavity size is normal . Gated tomographic images demonstrate normal wall motion and wall thickening with a left ventricular ejection fraction of greater than 75 % poststress (normal >45%). IMPRESSION: 1. Normal myocardial perfusion study. No scintigraphic evidence of myocardial ischemia. 2. Normal left ventricular ejection fraction of greater than 75 % poststress. 3. Normal wall motion. THIS IS AN ELECTRONICALLY VERIFIED FINAL REPORT 01/03/2025 1:23 PM - Electronically signed by Stefano Anton M.D. LB: SANDRO Report ID: [id number] Reading Location: [id number] Procedure Note Stefano Anton MD - 01/03/2025 EXAM DESCRIPTION: NM MPI SPECT (REST AND/OR STRESS) MULTIPLE STUDIES REASON FOR STUDY: Chest pain and shortness of breath. RADIOPHARMACEUTICAL: Rest: 11 mCi Tc-99m tetrofosmin Pharmacologic Stress: 33 mCi Tc-99m tetrofosmin Injection site: Left antecubital vein IV site TECHNIQUE: Standard myocardial perfusion SPECT images were obtained after resting tracer injection. Subsequently, an intravenous infusion of 0.4 mg Lexiscan was performed. Standard myocardial perfusion images wereobtained after tracer injection at the peak effect of the drug. COMPARISON: None FINDINGS: Image quality is adequate at rest and adequate at stress. There are no perfusion abnormalities. The left ventricular cavity size is normal . Gated tomographic images demonstrate normal wall motion and wallthickening with a left ventricular ejection fraction of greater than 75 % poststress (normal >45%). IMPRESSION: 1. Normal myocardial perfusion study. No scintigraphic evidence of myocardial ischemia. 2. Normal left ventricular ejection fraction of greater than 75 % poststress. 3. Normal wall motion. THIS IS AN ELECTRONICALLY VERIFIED FINAL REPORT 01/03/2025 1:23 PM - Electronically signed by Stefano Anton M.D. LB: SANDRO Report ID: [id number] Reading Location: [place] [address] Nasrin Olvera NP IMG NM PROCEDURES Final Res ult * Stress Test for Myocardial Perfusion (01/03/2025 12:57 PM CDT) Anatomical Region Laterality Modality Nuclear Medicine Impressions 01/03/2025 1:06 PM CDT 1. EKG portion of the stress test is negative for ischemia. 2. Nuclear images pending. Narrative 01/03/2025 1:06 PM CDT Patient Id: Neisha Fish is a 79 y.o. male. MR#: [id number] Study date: 01/03/2025 EXAM DESCRIPTION: STRESS LEXISCAN MYOVIEW TECHNIQUE: Baseline EKG: Normal sinus rhythm Baseline blood pressure was 128/64 , and baseline heart rate was 70 beats per minute . Stress test was performed according to Lexiscan protocol. Blood pressure after Lexiscan infusion was 142/79, and post infusion heart rate was 86 beats per minute. There were no EKG changes suggesting ischemia. There were no arrhythmias. SYMPTOMS: Patient denied chest pain or shortness of breath. Nasrin Olvera NP CV STRESS PROCEDURES Final Result * TRANSTHORACIC ECHO (TTE) COMPLETE W DOPPLER/CF WO CONTRAST (01/03/2025 12:05 PM CDT) EF Mod BP 66 % CONS SCIMAGE Anatomical Region Laterality Modality Ultrasound 01/03/2025 11:3 2 AM CDT Narrative 01/03/2025 12:29 PM CDT Transthoracic Echocardiographic Report Patient Name: NEISHA FISH W : 1945 (79y 10m) Gender: M Study Date: 01/03/2025 11:32:47 AM Ht(Inch): 72 Wt(Lb): 169 BSA: 1.97 Gasoline Plant Operator: Jyotsna Willard RDCS Location: [place] [address] Order Provider: MALENA KING Heart Rate: 72 BMI: 22.92 BP: 119 / 67 Ref Provider: MALENA KING PROCEDURES: Echocardiographic Report: ([id number]) Transthoracic complete echo, 2D, spectral and tissue Doppler, color flow Doppler, M-mode. Technically difficult study due to: Technically difficult study due to underlying lung condition. INDICATIONS: Chest pain. FINDINGS: Left Ventricle: Normal left ventricular cavity size. Normal Left ventricular wall thickness. Normal left ventricular systolic function. The Ejection Fraction (Crawford's) is measured at 66 %. Diastolic Function Left ventricular diastolic parameters are consistent with Grade I diastolic dysfunction (normal LA pressure). Right Ventricle: Normal right ventricular size. Normal right ventricular systolic function. Left Atrium: Mildly dilated left atrium. Right Atrium: The right atrium is normal in size. Mitral Valve: Valve normal in structure and function. There is trace to mild mitral valve regurgitation. Moderate mitral stenosis. The mitral valve area by pressure half- time is 2.6 cm2. The mean transmitral gradient is: 8 mmHg. Aortic Valve: Trileaflet aortic valve. Trace aortic valve regurgitation. No aortic valve stenosis. The mean transaortic gradient is 4 mmHg. Tricuspid Valve: The tricuspid valve demonstrates normal leaflet structure. There is mild tricuspid regurgitation. Pulmonic Valve: The pulmonic valve demonstrates normal leaflet structure. No evidence of pulmonic regurgitation. Aorta: Normal aortic root. CONCLUSIONS: 1. Normal left ventricular cavity size. Normal Left ventricular wall thickness. Normal left ventricular systolic function. The Ejection Fraction (Crawford's) is measured at 66 %. Diastolic Function Left ventricular diastolic parameters are consistent with Grade I diastolic dysfunction (normal LA pressure). 2. Normal right ventricular size. Normal right ventricular systolic function. 3. Valve normal in structure and function. There is trace to mild mitral valve regurgitation. Moderate mitral stenosis. The mitral valve area by pressure half- time is 2.6 cm2. The mean transmitral gradient is: 8 mmHg. 4. Trileaflet aortic valve. Trace aortic valve regurgitation. No aortic valve stenosis. The mean transaortic gradient is 4 mmHg. 5. The tricuspid valve demonstrates normal leaflet structure. There is mild tricuspid regurgitation. 6. Normal aortic root. MEASUREMENTS: 2D/MM Value Range Doppler Value LVIDd 2D 3.38 cm [ 3.50 - 5.70 ] AV Peak Nehemias 1.44 m/s LVIDs 2D 2.18 cm [ 3.10 - 4.60 ] AV Peak PG 8.29 mmHg IVSd 2D 0.87 cm [ 0.60 - 1.20 ] AV Mean PG 4.00 mmHg LVPWd 2D 0.75 cm [ 0.60 - 1.10 ] AV VTI 26.30 cm LV Thickness Ratio 1.16 LVOT Peak Nehemias 1.21 m/s LV Mass 2D 73.71 g LVOT Peak PG 5.86 mmHg LV Mass Index 2D 37.42 g/m2 LVOT Mean PG 2.00 mmHg RWT 0.44 LVOT VTI 23.50 cm EF Mod BP 66 % [ 52 - 72 ] LVOT Diam 2.00 cm LA Dimension 2D 4.40 cm [ 1.90 - 4.00 ] SV LVOT 74.00 cm3 LA Length 2C 6.15 cm GWYN VTI 2.81 cm2 LA Length 4C 5.53 cm GWYN Vmax 2.64 cm2 LA Volume BP 71.90 ml LVOT/AV VTI 0.89 - Dimensionless index (DVI) LA Volume Index 36.50 ml/m2 [ 16.00 - 34.00 ] AI Peak Nehemias 2.99 m/s TAPSE 2.44 cm [ 1.71 - 5.00 ] AI Peak PG 36.00 mmHg AoR Diam 2D 2.80 cm [ 2.00 - 3.70 ] AI Decel [place] 2.54 m/s2 Ao Root Index 1.42 cm/m2 [ 1.00 - 2.00 ] AI PHT 344.00 ms MV E Peak Nehemias 1.36 m/s MV A Peak Nehemias 1.48 m/s MV E/A 0.90 ratio MV Peak Nehemias 2.07 m/s MV Peak PG 17.14 mmHg MV Mean PG 8.00 mmHg MV VTI 67.10 cm MV PHT Peak Nehemias 2.07 m/s MV PHT 84.00 ms MVA PHT 2.62 cm2 MV Decel Time 285.00 msec Med E` Nehemias 0.06 m/s Lat E` Nehemias 0.09 m/s Average E/E` 1813.33 RV S` 0.19 m/s TR Peak Nehemias 2.87 m/s TR Peak PG 32.9 mmHg PV Peak Nehemias 0.97 m/s PV Peak PG 3.76 mmHg - ATTESTATION: I have reviewed and interpreted the pertinent images and measurements of this study. I attest to the conclusions in the final report that is provided above. DISCLAIMER: The study images and the final report will be retained in the patient chart by the [facility] for the legally required time period. This chart constitutes the legal record of any testing performed. Electronically Signed By: Kelly Carbajal MD 01/03/2025 12:29:04 PM CDT Procedure Note Kelly Carbajal MD - 01/03/2025 Transthoracic Echocardiographic Report Patient Name: NEISHA FISH W : 1945 (79y 10m) Gender: M Study Date: 01/03/2025 11:32:47 AM Ht(Inch): 72 Wt(Lb): 169 BSA: 1.97 Gasoline Plant Operator: Jyotsna Willard [facility] Location: [place] [address] Order Provider:SAMRA KING Heart Rate: 72 BMI: 22.92 BP: 119 / 67 Ref Provider:MALENA KING PROCEDURES: Echocardiographic Report: ([id number]) Transthoracic complete echo, 2D,spectral and tissue Doppler, color flow Doppler, M-mode. Technically difficult study due to: Technically difficult study due tounderlying lung condition. INDICATIONS: Chest pain. FINDINGS: Left Ventricle: Normal left ventricular cavity size. Normal Leftventricular wall thickness. Normal left ventricular systolic function. The EjectionFraction (Crawford's) is measured at 66 %. Diastolic Function Left ventricular diastolicparameters are consistent with Grade I diastolic dysfunction (normal LA pressure). Right Ventricle: Normal right ventricular size. Normal right ventricularsystolic function. Left Atrium: Mildly dilated left atrium. Right Atrium: The right atrium is normal in size. Mitral Valve: Valve normal in structure and function. There is trace tomild mitral valve regurgitation. Moderate mitral stenosis. The mitral valve area by pressurehalf- time is 2.6 cm2. The mean transmitral gradient is: 8 mmHg. Aortic Valve: Trileaflet aortic valve. Trace aortic valve regurgitation.No aortic valve stenosis. The mean transaortic gradient is 4 mmHg. Tricuspid Valve: The tricuspid valve demonstrates normal leafletstructure. There is mild tricuspid regurgitation. Pulmonic Valve: The pulmonic valve demonstrates normal leaflet structure.No evidence of pulmonic regurgitation. Aorta: Normal aortic root. CONCLUSIONS: 1. Normal left ventricular cavity size. Normal Left ventricular wallthickness. Normal left ventricular systolic function. The Ejection Fraction (Crawford's) ismeasured at 66 %. Diastolic Function Left ventricular diastolic parameters are consistentwith Grade I diastolic dysfunction (normal LA pressure). 2. Normal right ventricular size. Normal right ventricular systolicfunction. 3. Valve normal in structure and function. There is trace to mild mitralvalve regurgitation. Moderate mitral stenosis. The mitral valve area by pressurehalf- time is 2.6 cm2. The mean transmitral gradient is: 8 mmHg. 4. Trileaflet aortic valve. Trace aortic valve regurgitation. No aorticvalve stenosis. The mean transaortic gradient is 4 mmHg. 5. The tricuspid valve demonstrates normal leaflet structure. There ismild tricuspid regurgitation. 6. Normal aortic root. MEASUREMENTS: 2D/MM Value Range DopplerValue LVIDd 2D 3.38 cm [ 3.50 - 5.70 ] AV Peak Vel1.44 m/s LVIDs 2D 2.18 cm [ 3.10 - 4.60 ] AV Peak PG8.29 mmHg IVSd 2D 0.87 cm [ 0.60 - 1.20 ] AV Mean PG4.00 mmHg LVPWd 2D 0.75 cm [ 0.60 - 1.10 ] AV VTI26.30 cm LV Thickness Ratio 1.16 LVOT Peak Vel1.21 m/s LV Mass 2D 73.71 g LVOT Peak PG5.86 mmHg LV Mass Index 2D 37.42 g/m2 LVOT Mean PG2.00 mmHg RWT 0.44 LVOT VTI23.50 cm EF Mod BP 66 % [ 52 - 72 ] LVOT Diam2.00 cm LA Dimension 2D 4.40 cm [ 1.90 - 4.00 ] SV LVOT74.00 cm3 LA Length 2C 6.15 cm GWYN VTI2.81 cm2 LA Length 4C 5.53 cm GWYN Vmax2.64 cm2 LA Volume BP 71.90 ml LVOT/AV VTI0.89 - Dimensionless index (DVI) LA Volume Index 36.50 ml/m2 [ 16.00 - 34.00 ] AI Peak Vel2.99 m/s TAPSE 2.44 cm [ 1.71 - 5.00 ] AI Peak PG36.00 mmHg AoR Diam 2D 2.80 cm [ 2.00 - 3.70 ] AI Decel Slope2.54 m/s2 Ao Root Index 1.42 cm/m2 [ 1.00 - 2.00 ] AI IPM732.00 ms MV E Peak Nehemias 1.36 m/s MV A Peak Nehemias 1.48 m/s MV E/A 0.90 ratio MV Peak Nehemias 2.07 m/s MV Peak PG 17.14 mmHg MV Mean PG 8.00 mmHg MV VTI 67.10 cm MV PHT Peak Nehemias 2.07 m/s MV PHT 84.00 ms MVA PHT 2.62 cm2 MV Decel Time 285.00 msec Med E` Nehemias 0.06 m/s Lat E` Nehemias 0.09 m/s Average E/E` 1813.33 RV S` 0.19 m/s TR Peak Nehemias 2.87 m/s TR Peak PG 32.9 mmHg PV Peak Nehemias 0.97 m/s PV Peak PG 3.76 mmHg - ATTESTATION: I have reviewed and interpreted the pertinent images and measurements ofthis study. I attest to the conclusions in the final report that is provided above. DISCLAIMER: The study images and the final report will be retained in the patientchart by the [facility] for the legally required time period. This chart constitutesthe legal record of any testing performed. Electronically Signed By: Kelly Carbajal MD 01/03/2025 12:29:04 PM CDT Malena King MD CV ECHO PROCEDU RES Final Result * eGFR (01/03/2025 6:07 AM CDT) eGFR 81 >=60 mL/min/1. 73 m2 Comment: Interpretive Data Reference Interval Normal >/= 90 mL/min/1.73m2 Mildly decreased* 60 - 89 mL/min/1.73m2 Mildly to moderately decreased 45 - 59 mL/min/1.73m2 Moderately to severely decreased 30 - 44 mL/min/1.73m2 Severely decreased 15 - 29 mL/min/1.73m2 Kidney Failure < 15 mL/min/1.73m2 *Relative to young adult level Estimated glomerular filtration rate is determined by the 2020 CKD-EPI equation recommended by the National Kidney Foundation (A Unifying Approach to GFR Estimation: Recommendations of the NKF-ASK Task Force on Reassessing the Inclusion of Race in Diagnosing Kidney Disease, JASN 2020). The CKD-EPI equation should not be used for patients with unstable renal function and has not been validated in children and those over 70. Current interpretive data was last reviewed 2021. Testing performed by: [address] [address] Blood 01/03/2025 6:07 AM CDT 01/03/2025 6:33 AM CDT Malena King MD LAB BLOOD ORDER REYNALDO Final Result Performing Organization Address [place]/[facility] Co de Phone Number [address] [place] [address] * Thyroid Function [place] (01/03/2025 6:07 AM CDT) TSH 1.64 0.30 - 4.20 mcIUnit/mL Comment:Testing performed by : [address] [address] Blood 01/03/2025 6:07 AM CDT 01/03/2025 6:33 AM CDT Malena King MD LAB BLOOD ORDER REYNALDO Final Result Performing Organization Address City/[facility] Co de Phone Number [place] [phone] [facility] [facility] [place] [address] * (ABNORMAL) CBC without differential (01/03/2025 6:07 AM CDT) WBC 4.23 3.80 - 9.90 K/cumm Comment:Testing performed by : [address] [address] Hgb 10.3(L) 13.0 - 17.5 g/dL FELIX Comment:Testing performed by : [address] [address] Hct 32.0(L) 38.9 - 50.3 % FELIX Comment:Testing performed by : [address] [address] Plt 101(L) 150 - 400 K/cumm FELIX Comment:Testing performed by : [address] [address] MPV 10.2 9.1 - 12.3 fL FELIX Comment:Testing performed by : [address] [address] RBC 3.66(L) 4.30 - 5.80 M/cumm FELIX Comment:Testing performed by : [address] [address] MCV 87.4 81.3 - 96.4 fL FELIX Comment:Testing performed by : [address] [address] MCH 28.1 27.1 - 33.3 pg FELIX Comment:Testing performed by : [address] [address] MCHC 32.2(L) 32.3 - 35.7 g/dL FELIX Comment:Testing performed by : [address] [address] RDW CV 15.9(H) 11.1 - 14.9 % FELIX Comment:Testing performed by : [address] [address] RDW SD 50.9(H) 35.7 - 48.1 fL FELIX Comment:Testing performed by : [address] [address] NRBC abs 0.00 0.00 - 0.01 K/cumm FELIX Comment:Testing performed by : [address] [address] Blood 01/03/2025 6:07 AM CDT 01/03/2025 6:34 AM CDT Malena King MD LAB BLOOD ORDER REYNALDO Final Result FELIX [facility] [place] [address] * Hemoglobin A1c (01/03/2025 6:07 AM CDT) Hgb A1C 5.3 4.0 - 5.6 % Comment:Testing performed by : [address] [address] Estimated Average Glucose 105 mg/dL FELIX Comment: The ADA recommends reporting an estimated Average Glucose (eAG) with all Hemoglobin A1c results using the equation derived from a study of 507 normal and diabetic adults. Minority populations were underrepresented and children were not included. (Diabetes Care 31:5697-1103, 2008). The eAG is not equivalent to a fasting glucose. Testing performed by: [address] [address] Blood 01/03/2025 6:07 AM CDT 01/03/2025 6:34 AM CDT Malena King MD LAB BLOOD ORDER REYNALDO Final Result Performing Organization Address City/[facility] Co de Phone Number [place] [phone] [place] [address] * Lipid panel (01/03/2025 6:07 AM CDT) Pathologist [facility] Cholesterol 114 30 - 199 mg/dL Comment: Interpretive Data Ages < or = 19 years Acceptable: <170 mg/dL Borderline high: 170-199 mg/dL High: >or= 200 mg/dL Ages > or = 20 years Desirable: <200 mg/dL Borderline high: 200-239 mg/dL High: >or= 240 mg/dL Literature References: 1. Expert Panel on Integrated Guidelines for Cardiovascular Health and Risk Reduction in Children and Adolescents. Pediatrics 2011;128:S213 2. NCEP Expert Panel. Circulation 2004;110:227 Current Interpretive Data was last revised on 2018. Testing performed by: [address] [address] Triglycerides 61 <=149 mg/dL FELIX Comment: Interpretive Data Ages < or = 9 years Acceptable: <75 mg/dL Borderline high: 75-99 mg/dL High: >or= 100 mg/dL Ages 10 to 20 years Acceptable: <90 mg/dL Borderline high: 90-129 mg/dL High: >or= 130 mg/dL Ages > or = 20 years Desirable: <150 mg/dL Borderline high: 150-199 mg/dL High: 200-499 mg/dL Very high: >or= 499 mg/dL Literature References: 1. Expert Panel on Integrated Guidelines for Cardiovascular Health and Risk Reduction in Children and Adolescents. Pediatrics 2011;128:S213 2. NCEP Expert Panel. Circulation 2004;110:227 Current Interpretive Data was last revised on 2018. Testing performed by: [address] [address] HDL 52 >=40 mg/dL FELIX Comment: Interpretive Data Ages < or = 19 years Acceptable: >45 mg/dL Borderline low: 40-45 mg/dL Low: <40 mg/dL Ages > or = 20 years Desirable: >or= 60 mg/dL Low: <40 mg/dL Literature References: 1. Expert Panel on Integrated Guidelines for Cardiovascular Health and Risk Reduction in Children and Adolescents. Pediatrics 2011;128:S213 2. NCEP Expert Panel. Circulation 2004;110:227 Current Interpretive Data was last revised on 2018. Testing performed by: [address] [address] LDL, calculated 49 <=129 mg/dL FELIX Comment: Interpretive Data Ages < or = 19 years Acceptable: <110 mg/dL Borderline high: 110-129 mg/dL High: >or= 130 mg/dL Ages > or = 20 years Optimal: <100 mg/dL Near optimal: 100-129 mg/dL Borderline high: 130-159 mg/dL High: >160 mg/dL Calculated using the Reeves LDL-C estimating equation. This equation was implemented on 2024. Prior to this date LDL-C was estimated using the Friedewald equation. Literature References: 1. Expert Panel on Integrated Guidelines for Cardiovascular Health and Risk Reduction in Children and Adolescents. Pediatrics 2011;128:S213 2. NCEP Expert Panel. Circulation 2004;110:227 3. Reeves M et al. YASMIN Cardiol. 2020 October 12;5(5):540-548. doi: 10.1001/jamacardio.2020.0013 Current Interpretive Data was last revised on 2024. Testing performed by: [address] [address] Non-HDL Cholesterol 62 mg/dL FELIX CARDONA Comment: Interpretive Data Ages < or = 19 years Acceptable: <120 mg/dL Borderline high: 120-144 mg/dL High: >145 mg/dL Ages > or = 20 years When triglycerides are >200 mg/dL, Non-HDL cholesterol is a secondary target of therapy with treatment goals that are 30 mg/dL greater than the LDL cholesterol target. Literature References: 1. Expert Panel on Integrated Guidelines for Cardiovascular Health and Risk Reduction in Children and Adolescents. Pediatrics 2011;128:S213 2. NCEP Expert Panel. Circulation 2004;110:227 Current Interpretive Data was last revised on 2018. Testing performed by: [address] [address] Chol/HDL ratio 2 FELIX Comment:Testing performed by : [address] [address] Blood 01/03/2025 6:07 AM CDT 01/03/2025 6:33 AM CDT Malena King MD LAB BLOOD ORDER REYNALDO Final Result F[place]IX [address] [facility] Department of Laboratories [place], [place] [id number] * (ABNORMAL) Basic metabolic panel (01/03/2025 6:07 AM CDT) [facility] Signature Sodium 136 135 - 145 mmol/L Comment:Testing performed by : [address] [address] Potassium, pl 4.0 3.3 - 4.9 mmol/L FELIX CARDONA Comment:Testing performed by : [address] [address] Chloride 104 97 - 110 mmol/L FELIX Comment:Testing performed by : [address] [address] CO2 21(L) 22 - 32 mmol/L FELIX Comment:Testing performed by : [address] [address] Anion gap 11 2 - 15 mmol/L FELIX Comment:Testing performed by : [address] [address] BUN 22 6 - 25 mg/dL FELIX Comment:Testing performed by : [address] [address] Creatinine 0.96 0.80 - 1.30 mg/dL FELIX Comment:Testing performed by : [address] [address] Glucose 114 70 - 199 mg/dL FELIX Comment: Interpretive Data Fasting glucose >/= 126 mg/dl is diagnostic for diabetes. Fasting is defined as no caloric intake for at least 8 hours. Fasting glucose between 100 mg/dl to 125 mg/dl is diagnostic of prediabetes. In a patient with classic symptoms of hyperglycemia or hyperglycemic crisis, a random glucose >/= 200 mg/dl is diagnostic for diabetes. In the absence of unequivocal hyperglycemia, results should be confirmed by repeat testing. The classification and Diagnosis of Diabetes Diabetes Care 202; 46: S19-S40. Current interpretive data was last revised 2022. Testing performed by: [address] [address] Calcium 8.5 8.5 - 10.3 mg/dL FELIX Comment:Testing performed by : [address] [address] Blood 01/03/2025 6:07 AM CDT 01/03/2025 6:33 AM CDT us Malena King MD LAB BLOOD ORDER REYNALDO Final Result [place] [address] [facility] Department [place] [address] * CT Chest PE (CTA) Abdomen Pelvis W Contrast (01/02/2025 9:53 PM CDT) Anatomical Region Laterality Modality Body N/A Computed Tomogra phy 01/02/2025 10:3 8 PM CDT Narrative 01/02/2025 10:58 PM CDT EXAM DESCRIPTION: CT CHEST PE (CTA) ABDOMEN PELVIS W CONTRAST REASON FOR STUDY: Edema, chest pain, abdominal distension Edema, chest pain, abd distension TECHNIQUE: CT angiogram of the chest performed with intravenous contrast using helical scanning technique with dynamic intravenous contrast injection. Axial tomographic sections were then obtained through the abdomen and pelvis. Reconstructed coronal and sagittal MPR images reviewed. All images stored on PACS. 3D MIP images rendered on scanning unit and reviewed at time of interpretation. Automated exposure control was used as a dose optimization technique for this examination. CONTRAST TYPE/DOSE: 100mL of IOVERSOL 350 MG IODINE/ML INTRAVENOUS SYRINGE injected via intravenous COMPARISON: CT of the chest of January 26, 2024. REFERENCE: Per ACR white paper recommendations, unless otherwise specified no follow-up imaging is recommended for incidental renal and adrenal lesions per consensus recommendations based on imaging criteria. Further lab evaluation could be pursued based on clinical findings. FINDINGS: CHEST NECK BASE: Unremarkable. HARDWARE/LINES/TUBES: None. LYMPH NODES: No axillary, mediastinal or hilar lymphadenopathy is seen by CT size criteria. There are calcified lymph nodes. MEDIASTINUM/PASTORA: No masses seen. There is moderate atherosclerosis of the aorta. There is mild coronary artery calcification. The contrast bolus is borderline adequate . There is streak artifact related to dense contrast in the SVC, somewhat limiting evaluation of the adjacent right upper lobe vasculature. The pulmonary arteries are well evaluated to the subsegmental level. There are no filling defects seen in the pulmonary arteries on the axial or coronal images to suggest pulmonary embolism. There is no evidence of left intraventricular septal bowing. There is no significant reflux of contrast into the IVC. Heart size is normal. There is no significant pericardial effusion. PLEURA: No effusion or pneumothorax. LUNGS: There is severe emphysema through out the lungs bilaterally with a large bulla in the right lower lobe at the right lung base with compressive atelectasis along the anterior and superior margin of the bulla. There is a 6 mm solid nodule in the right lung apex, not significantly changed from previous study (series 5, image 28). There are calcified granulomas. There is a small amount debris seen in the distal trachea and right mainstem bronchus. MUSCULOSKELETAL: There is diffuse degenerative change of the thoracic spine. There is no acute abnormality. There are minimally displaced nonsegmental fractures in the anterior aspect of the left 4th, 5th and 6th ribs. CHEST WALL/BREAST: There is marked bilateral gynecomastia. OTHER: No other significant abnormality. ABDOMEN AND PELVIS LIVER: The liver is atrophic and markedly nodular, progressed from previous. GALLBLADDER: No stones identified. Normal wall. No evidence of pericholecystic fluid. BILE DUCTS: No intrahepatic or extrahepatic ductal dilatation. PANCREAS: Normal. SPLEEN: No focal lesions. The spleen is enlarged measuring 15 cm in length. ADRENALS: Normal. KIDNEYS/URINARY TRACT: There are benign-appearing low density cysts in the right kidney. Renal parenchyma is otherwise unremarkable. No visualized renal or ureteral stones. There is no hydronephrosis or hydroureter. The bladder is largely obscured by streak artifact from the patient's bilateral hip hardware. VASCULATURE: There is [id number]-[id number] atherosclerosis of the aorta and its pelvic branches. There is recanalization of the umbilical vein. The portal vein is markedly dilated measuring 2.3 cm in diameter. There are distal esophageal varices. GI: The stomach appears normal. There is no significant small bowel dilation or visible thickening. No gross colonic abnormalities identified. The appendix is normal. PERITONEUM/MESENTERY: There is a large amount of ascites present through out the abdomen and pelvis. There is a large periumbilical hernia containing ascites. There is a right inguinal hernia containing ascites. There is marked edema present through out the mesentery. LYMPH NODES: There are no enlarged lymph nodes seen by CT size criteria. RETROPERITONEUM: No retroperitoneal abnormalities. REPRODUCTIVE: The prostate and seminal vesicles are unremarkable. MUSCULOSKELETAL: Multilevel degenerative changes are present in the spine. No acute bony abnormalities are seen. There are sequelae of old left acetabular fracture and left inferior ramus fracture. There are multiple screws in an IM marianela seen in the proximal left femur. There are sequelae of right hip arthroplasty. OTHER: There are surgical clips seen in the inguinal regions bilaterally. IMPRESSION: 1. No CTA evidence of pulmonary embolism. 2. Minimally displaced nonsegmental fractures in the anterior aspect of the left 4th, 5th and 6th ribs. 3. Severe emphysema. 4. Stable 6 mm right upper lobe pulmonary nodule. Per Fleischner Society Guidelines, given stability to date, follow-up non-contrast chest CT at 12 to 18 months is considered optional for low-risk patients, but is recommended for high-risk patients. 5. Atherosclerosis. 6. Hepatic cirrhosis with evidence of portal hypertension including splenomegaly, large ascites, recanalization of the umbilical vein and distal esophageal varices. 7. Large periumbilical hernia containing ascites. 8. Right inguinal hernia containing ascites. 9. Sequelae of old left acetabular and left inferior ramus fractures. 10. Degenerative change of the spine. 11. Sequelae of old granulomatous disease. THIS IS AN ELECTRONICALLY VERIFIED FINAL REPORT 01/02/2025 10:58 PM - Electronically signed by Yuliana Gonzalez M.D. SN: Report ID: [id number] Reading Location: [place] [address] Procedure Note Yuliana Gonzalez MD - 01/02/2025 EXAM DESCRIPTION: CT CHEST PE (CTA) ABDOMEN PELVIS W CONTRAST REASON FOR STUDY: Edema, chest pain, abdominal distension Edema, chest pain, abd distension TECHNIQUE: CT angiogram of the chest performed with intravenous contrastusing helical scanning technique with dynamic intravenous contrast injection.Axial tomographic sections were then obtained through the abdomen and pelvis. Reconstructed coronal and sagittal MPR images reviewed. All images storedon PACS. 3D MIP images rendered on scanning unit and reviewed at time of interpretation. Automated exposure control was used as a doseoptimization technique for this examination. CONTRAST TYPE/DOSE: 100mL of IOVERSOL 350 MG IODINE/ML INTRAVENOUSSYRINGE injected via intravenous COMPARISON: CT of the chest of January 26, 2024. REFERENCE: Per ACR white paper recommendations, unless otherwise specifiedno follow-up imaging is recommended for incidental renal and adrenal lesionsper consensus recommendations based on imaging criteria. Further labevaluation could be pursued based on clinical findings. FINDINGS: CHEST NECK BASE: Unremarkable. HARDWARE/LINES/TUBES: None. LYMPH NODES: No axillary, mediastinal or hilar lymphadenopathy is seen byCT size criteria. There are calcified lymph nodes. MEDIASTINUM/PASTORA: No masses seen. There is moderate atherosclerosis ofthe aorta. There is mild coronary artery calcification. The contrast bolusis borderline adequate . There is streak artifact related to dense contrastin the SVC, somewhat limiting evaluation of the adjacent right upper lobe vasculature. The pulmonary arteries are well evaluated to thesubsegmental level. There are no filling defects seen in the pulmonary arteries on the axial or coronal images to suggest pulmonary embolism. There is noevidence of left intraventricular septal bowing. There is no significant refluxof contrast into the IVC. Heart size is normal. There is no significant pericardial effusion. PLEURA: No effusion or pneumothorax. LUNGS: There is severe emphysema through out the lungs bilaterally with a large bulla in the right lower lobe at the right lung base withcompressive atelectasis along the anterior and superior margin of the bulla. There jalen 6 mm solid nodule in the right lung apex, not significantly changed from previous study (series 5, image 28). There are calcified granulomas.There is a small amount debris seen in the distal trachea and right mainstem bronchus. MUSCULOSKELETAL: There is diffuse degenerative change of the thoracicspine. There is no acute abnormality. There are minimally displaced nonsegmental fractures in the anterior aspect of the left 4th, 5th and 6th ribs. CHEST WALL/BREAST: There is marked bilateral gynecomastia. OTHER: No other significant abnormality. ABDOMEN AND PELVIS LIVER: The liver is atrophic and markedly nodular, progressed fromprevious. GALLBLADDER: No stones identified. Normal wall. No evidence of pericholecystic fluid. BILE DUCTS: No intrahepatic or extrahepatic ductal dilatation. PANCREAS: Normal. SPLEEN: No focal lesions. The spleen is enlarged measuring 15 cm inlength. ADRENALS: Normal. KIDNEYS/URINARY TRACT: There are benign-appearing low density cysts inthe right kidney. Renal parenchyma is otherwise unremarkable. Novisualized renal or ureteral stones. There is no hydronephrosis or hydroureter.The bladder is largely obscured by streak artifact from the patient'sbilateral hip hardware. VASCULATURE: There is [id number] atherosclerosis of the aorta andits pelvic branches. There is recanalization of the umbilical vein. Theportal vein is markedly dilated measuring 2.3 cm in diameter. There are distal esophageal varices. GI: The stomach appears normal. There is no significant small bowel dilation or visible thickening. No gross colonic abnormalitiesidentified. The appendix is normal. PERITONEUM/MESENTERY: There is a large amount of ascites present throughout the abdomen and pelvis. There is a large periumbilical hernia containing ascites. There is a right inguinal hernia containing ascites. There is marked edema present through out the mesentery. LYMPH NODES: There are no enlarged lymph nodes seen by CT size criteria. RETROPERITONEUM: No retroperitoneal abnormalities. REPRODUCTIVE: The prostate and seminal vesicles are unremarkable. MUSCULOSKELETAL: Multilevel degenerative changes are present in thespine. No acute bony abnormalities are seen. There are sequelae of old leftacetabular fracture and left inferior ramus fracture. There are multiple screws inan IM marianela seen in the proximal left femur. There are sequelae of right hip arthroplasty. OTHER: There are surgical clips seen in the inguinal regions bilaterally. IMPRESSION: 1. No CTA evidence of pulmonary embolism. 2. Minimally displaced nonsegmental fractures in the anterior aspect ofthe left 4th, 5th and 6th ribs. 3. Severe emphysema. 4. Stable 6 mm right upper lobe pulmonary nodule. Per Fleischner Society Guidelines, given stability to date, follow-up non-contrast chest CT at 12to 18 months is considered optional for low-risk patients, but is recommendedfor high-risk patients. 5. Atherosclerosis. 6. Hepatic cirrhosis with evidence of portal hypertension including splenomegaly, large ascites, recanalization of the umbilical vein anddistal esophageal varices. 7. Large periumbilical hernia containing ascites. 8. Right inguinal hernia containing ascites. 9. Sequelae of old left acetabular and left inferior ramus fractures. 10. Degenerative change of the spine. 11. Sequelae of old granulomatous disease. THIS IS AN ELECTRONICALLY VERIFIED FINAL REPORT 01/02/2025 10:58 PM - Electronically signed by Yuliana Gonzalez M.D. SN: Report ID: [id number] Reading Location: [place] [address] David Johnson MD [facility] [place] PROCEDURES Final Result * (ABNORMAL) D-dimer, quantitative (01/02/2025 8:58 PM CDT) D-Dimer 3,730(H) <=499 ng/mL FEU Comment: Interpretive data FDA approved the D-dimer, in conjunction with a low or moderate pretest probability score, to exclude venous thromboembolic events (VTE) (PE and DVT) in outpatients when the D-dimer result is < 500 ng/ml FEU. Evidence supports using an age-adjusted D-dimer cut-off for outpatients older than 50 (age x 10) to improve specificity without sacrificing sensitivity. Example: age 70, VTE cut-off 680 ng/ml FEU. References; Schouten HT et al. Brit Med J. 2013;346:f2492. Ritchie et al. Annals Int Med. 2015;163:701-11. Current interpretive data was last revised on 2019. Testing performed by: [facility], [address] [place] [address]., [address] Blood 01/02/2025 8:58 PM CDT 01/02/2025 9:01 PM CDT us David Johnson MD LAB BLOOD ORDERABLES Final Resul t Performing Organization Address City/[facility] [place] Phone Number FELIX [address] [facility] Department of Laboratories [place], [place] [id number] * ECG 12 lead (01/02/2025 7:48 PM CDT) Ventricular Rate EKG/Min 67 BPM [facility] Atrial Rate 67 BPM [facility] NE-Interval (MSEC) 166 ms [facility] QRS-Interval (MSEC) 82 ms [facility] QT-Interval (MSEC) 444 ms [facility] QTc 469 ms [facility] P [place] 83 degrees [facility] R [place] -2 degrees [facility] T [place] 23 degrees [facility] Diagnosis Normal sinus rhythm Possible Anterior infarct , age undetermined Abnormal ECG When compared with ECG of 02-JAN-2025 18:45, No significant change Confirmed by LENARD JESUS M.D. ([id number]) on 01/03/2025 10:43:29 PM [facility] 01/02/2025 7:48 PM CDT 01/03/2025 10:43 PM CDT us Clive Lujan NP ECG ORDERABLES Final Result Performing Organization Address [place]/[facility] Co de Phone Number [facility] * (ABNORMAL) Troponin T high-sensitivity 4-hour (01/02/2025 7:46 PM CDT) Trop T hs 33(H) <=22 ng/L Comment: Interpretive Data For further hscTnT resources including the diagnostic algorithm and an aid in interpretation, copy and paste this link: https://nrl.testcatalog.org/show/hsTrop Current Interpretive Data last revised 2020. Testing performed by: [facility], [address] [place] [address]., [address] Trop T hs delta -1 ng/L FELIX Comment:Testing performed by : [address] [address] Trop T hs interp Insignificant FELIX Comment:Testing performed by : [address] [address] Blood 01/02/2025 7:46 PM CDT 01/02/2025 7:51 PM CDT Mynor Jennings MD LAB BLOOD ORDERABLES Final R esult Performing Organization Address [place]/[facility] Co de Phone Number [facility] [address] [facility] Department [place] [address] * ECG 12 lead (01/02/2025 6:45 PM CDT) Ventricular Rate EKG/Min 68 BPM [facility] Atrial Rate 68 BPM [facility] NE-Interval (MSEC) 176 ms [facility] QRS-Interval (MSEC) 84 ms [facility] QT-Interval (MSEC) 436 ms [facility] QTc 463 ms [facility] P [place] 41 degrees [facility] R [place] 1 degrees [facility] T [place] 22 degrees [facility] Diagnosis Normal sinus rhythm Consider anteroseptal Mi Abnormal ECG When compared with ECG of 02-JAN-2025 15:51, No significant change was found Confirmed by LENARD JESUS M.D. ([id number]) on 01/03/2025 10:41:00 PM [facility] 01/02/2025 6:45 PM CDT 01/03/2025 10:41 PM CDT us David Johnson MD ECG ORDERABLES Final Result Performing Organization Address [place]/[facility]/ZIP Co de Phone Number [facility] * (ABNORMAL) Troponin T high-sensitivity 2-hour (01/02/2025 5:51 PM CDT) Trop T hs 32(H) <=22 ng/L Comment: Interpretive Data For further hscTnT resources including the diagnostic algorithm and an aid in interpretation, copy and paste this link: https://nrl.testcatalog.org/show/hsTrop Current Interpretive Data last revised 2020. Testing performed by: [facility], [address] [place] [address]., [address] Trop T hs delta -2 ng/L FELIX Comment:Testing performed by : [facility], [address] [place] [address]., [address] Trop T hs interp Insignificant FELIX Comment:Testing performed by : [facility], [address] [place] [address]., [address] Blood 01/02/2025 5:51 PM CDT 01/02/2025 5:56 PM CDT us Mynor Jennings MD LAB BLOOD ORDERABLES Final R esult Performing Organization Address City/[facility] Co de Phone Number [facility] [address] [facility] Department [place] [address] * XR Chest PA Lateral 2 Views (If patient hemodynamically stable and ambulatory) (01/02/2025 4:03 PM CDT) Anatomical Region Laterality Modality Body, Chest N/A Computed Radiogr aphy 01/02/2025 4:18 PM CDT Narrative 01/02/2025 4:19 PM CDT EXAM DESCRIPTION: XR CHEST PA LATERAL 2 VIEWS REASON FOR STUDY: Shortness of breath SOB, leg swelling /water retention x 3 weeks TECHNIQUE: 2 radiographic view(s) of the chest. COMPARISON: None FINDINGS: The cardiomediastinal silhouette appears normal. Curvilinear band of atelectasis or scarring in the right lung. No focal airspace consolidation or pleural effusion is seen.. IMPRESSION: No acute findings. THIS IS AN ELECTRONICALLY VERIFIED FINAL REPORT 01/02/2025 4:19 PM - Electronically signed by Kaiden Gilman M.D. JR: Report ID: [id number] Reading Location: [place] [address] Procedure Note Kaiden Gilman MD - 01/02/2025 EXAM DESCRIPTION: XR CHEST PA LATERAL 2 VIEWS REASON FOR STUDY: Shortness of breath SOB, leg swelling /water retention x 3 weeks TECHNIQUE: 2 radiographic view(s) of the chest. COMPARISON: None FINDINGS: The cardiomediastinal silhouette appears normal. Curvilinearband of atelectasis or scarring in the right lung. No focal airspaceconsolidation or pleural effusion is seen.. IMPRESSION: No acute findings. THIS IS AN ELECTRONICALLY VERIFIED FINAL REPORT 01/02/2025 4:19 PM - Electronically signed by Kaiden Gilman M.D. JR: Report ID: [id number] Reading Location: [place] [address] us David Johnson MD IMG XR PROCEDURES Final Result * ECG 12 lead (01/02/2025 3:51 PM CDT) Ventricular Rate EKG/Min 67 BPM [facility] Atrial Rate 67 BPM [facility] NE-Interval (MSEC) 162 ms [facility] QRS-Interval (MSEC) 78 ms [facility] QT-Interval (MSEC) 448 ms [facility] QTc 473 ms [facility] P [place] 37 degrees [facility] R [place] -16 degrees [facility] T [place] 15 degrees [facility] Diagnosis Normal sinus rhythm Low voltage QRS Septal infarct (cited on or before 18-MAY-2024) Abnormal ECG When compared with ECG of 18-MAY-2024 12:38, Questionable change in initial forces of Anteroseptal leads Confirmed by NIKOLAY LUCERO M.D. ([id number]) on 01/03/2025 8:20:27 AM [facility] [employer] 01/02/2025 3:51 PM CDT 01/03/2025 8:20 AM CDT us David Johnson MD ECG ORDERABLES Final Result Performing Organization Address [place]/[facility]/ZIP Co de Phone Number [facility] [employer] [facility] * (ABNORMAL) Troponin T high-sensitivity series (baseline, 2hr, 4hr, 6hr) (01/02/2025 3:51 PM CDT) Trop T hs 34(H) <=22 ng/L Comment: Interpretive Data For further hscTnT resources including the diagnostic algorithm and an aid in interpretation, copy and paste this link: https://nrl.testcatalog.org/show/hsTrop Current Interpretive Data last revised 2020. Testing performed by: [facility], [address] [place] [address]., [address] Blood 01/02/2025 3:51 PM CDT 01/02/2025 3:59 PM CDT us David Johnson MD LAB BLOOD ORDERABLES Final Resul t Performing Organization Address City/[facility]/ZIP Co de Phone Number FELIX [facility]6 [facility] Department [place] [address] * eGFR (01/02/2025 3:51 PM CDT) eGFR 78 >=60 mL/min/1. 73 m2 Comment: Interpretive Data Reference Interval Normal >/= 90 mL/min/1.73m2 Mildly decreased* 60 - 89 mL/min/1.73m2 Mildly to moderately decreased 45 - 59 mL/min/1.73m2 Moderately to severely decreased 30 - 44 mL/min/1.73m2 Severely decreased 15 - 29 mL/min/1.73m2 Kidney Failure < 15 mL/min/1.73m2 *Relative to young adult level Estimated glomerular filtration rate is determined by the 2020 CKD-EPI equation recommended by the National Kidney Foundation (A Unifying Approach to GFR Estimation: Recommendations of the NKF-ASK Task Force on Reassessing the Inclusion of Race in Diagnosing Kidney Disease, JASN 2020). The CKD-EPI equation should not be used for patients with unstable renal function and has not been validated in children and those over 70. Current interpretive data was last reviewed 2021. Testing performed by: [address] [address] Blood 01/02/2025 3:51 PM CDT 01/02/2025 3:59 PM CDT us David Johnson MD LAB BLOOD ORDERABLES Final Resul t [place] [id number] [facility] Department [place] [address] * (ABNORMAL) Differential, auto (01/02/2025 3:51 PM CDT) Neutrophil abs 5.14 1.50 - 6.50 K/cumm Comment:Testing performed by : [address] [address] Imm gran abs 0.01 0.00 - 0.10 K/cumm FELIX Comment:Testing performed by : [address] [address] Lymphocyte abs 0.70(L) 0.80 - 3.30 K/cumm FELIX Comment:Testing performed by : [address] [address] Monocyte abs 0.97(H) 0.20 - 0.80 K/cumm FELIX Comment:Testing performed by : [address] [address] Eosinophil abs 0.18 0.00 - 0.50 K/cumm FELIX Comment:Testing performed by : [address] [address] Basophil abs 0.04 0.00 - 0.10 K/cumm FELIX Comment:Testing performed by : [address] [address] Neutrophil pct 73.0 % FELIX Comment: Interpretive Data Percent cell count reference ranges are not reported, since discordance with absolute values may lead to misinterpretation of CBC data. Current Interpretive Data was last revised on 2017. Testing performed by: [address] [address] Imm gran pct 0.1 % [facility] Comment: Interpretive Data Percent cell count reference ranges are not reported, since discordance with absolute values may lead to misinterpretation of CBC data. Current Interpretive Data was last revised on 2017. Testing performed by: [address] [address] Lymphocyte pct 9.9 % [facility] Comment: Interpretive Data Percent cell count reference ranges are not reported, since discordance with absolute values may lead to misinterpretation of CBC data. Current Interpretive Data was last revised on 2017. Testing performed by: [address] [address] Monocyte pct 13.8 % [facility] Comment: Interpretive Data Percent cell count reference ranges are not reported, since discordance with absolute values may lead to misinterpretation of CBC data. Current Interpretive Data was last revised on 2017. Testing performed by: [address] [address] Eosinophil pct 2.6 % [facility] Comment: Interpretive Data Percent cell count reference ranges are not reported, since discordance with absolute values may lead to misinterpretation of CBC data. Current Interpretive Data was last revised on 2017. Testing performed by: [address] [address] Basophil pct 0.6 % [facility] Comment: Interpretive Data Percent cell count reference ranges are not reported, since discordance with absolute values may lead to misinterpretation of CBC data. Current Interpretive Data was last revised on 2017. Testing performed by: [address] [address] Blood 01/02/2025 3:51 PM CDT 01/02/2025 3:59 PM CDT us David Johnson MD LAB BLOOD ORDERABLES Final Resul t EFLIX MH 4500 [facility] Department [place] [address] * Pro B-type natriuretic peptide (01/02/2025 3:51 PM CDT) NT-proBNP 421 <=450 pg/mL Comment: Interpretive Comments: A. Dyspnea in Acute Care Setting All Ages: < 300 pg/ml, acute heart failure unlikely. < 50 yrs: 300 - 450 pg/ml, further investigation warranted. > 450 pg/ml, acute heart failure likely. 50 - 74 yrs: 300 - 900 pg/ml, further investigation warranted. > 900 pg/ml, acute heart failure likely . > or = 75 yrs: 450 - 1800 pg/ml, further investigation warranted. > 1800 pg/ml, acute heart failure likely. B. Non-acute Setting < 75 yrs < 125 pg/ml, rules out heart failure. > or = 125 pg/ml, further investigation warranted. > or = 75 yrs < 450 pg/ml, rules out heart failure. > or = 450 pg/ml, further investigation warranted. - Knowledge of each individual patient's NT-proBNP range may be more useful than using similar cut-points for every patient. Please note that marked elevations in NT-proBNP levels may be observed in state other than Left Ventricular Congestive Failure, including: acute coronary syndromes, right heart strain/failure (including pulmonary embolism and cor pulmonale), critical illness, renal failure, as well as advanced age. - References: 1. Jose Manuel KEARNEY et.al. Eur Heart J. 2006:27:330-337. 2. Denisse RW, David AM. J. AM Abril Cardiol: Cardiovasc Imag. 2009;2: 216- 225. Interpretive Data Last Revised Date: 2018. Testing performed by: [facility], [address] [place] [address]., [address] Blood 01/02/2025 3:51 PM CDT 01/02/2025 3:59 PM CDT us David Johnson MD LAB BLOOD ORDERABLES Final Resul t FEILX [address] [facility] Department [place] [address] * (ABNORMAL) CBC with auto differential (01/02/2025 3:51 PM CDT) WBC 7.04 3.80 - 9.90 K/cumm Comment:Testing performed by : [address] [address] Hgb 10.7(L) 13.0 - 17.5 g/dL FELIX Comment:Testing performed by : [address] [address] Hct 33.1(L) 38.9 - 50.3 % FELIX Comment:Testing performed by : [address] [address] Plt 136(L) 150 - 400 K/cumm FELIX Comment:Testing performed by : [address] [address] MPV 11.1 9.1 - 12.3 fL FELIX Comment:Testing performed by : [address] [address] RBC 3.82(L) 4.30 - 5.80 M/cumm FELIX Comment:Testing performed by : [address] [address] MCV 86.6 81.3 - 96.4 fL FELIX Comment:Testing performed by : [address] [address] MCH 28.0 27.1 - 33.3 pg FELIX Comment:Testing performed by : [address] [address] MCHC 32.3 32.3 - 35.7 g/dL FELIX Comment:Testing performed by : [address] [address] RDW CV 16.0(H) 11.1 - 14.9 % FELIX CARDONA Comment:Testing performed by : [address] [address] RDW SD 50.5(H) 35.7 - 48.1 fL FELIX CARDONA Comment:Testing performed by : [address] [address] NRBC abs 0.00 0.00 - 0.01 K/cumm FELIX CARDONA Comment:Testing performed by : [address] [address] Blood 01/02/2025 3:51 PM CDT 01/02/2025 3:59 PM CDT us David Johnson MD LAB BLOOD ORDERABLES Final Resul t FELIX [facility]0 [facility] Department [place] [address] * (ABNORMAL) Comprehensive metabolic panel (01/02/2025 3:51 PM CDT) Sodium 137 135 - 145 mmol/L Comment:Testing performed by : [address] [address] Potassium, pl 4.4 3.3 - 4.9 mmol/L FELIX CARDONA Comment:Testing performed by : [address] [address] Chloride 103 97 - 110 mmol/L FELIX Comment:Testing performed by : [address] [address] CO2 23 22 - 32 mmol/L FELIX Comment:Testing performed by : [address] [address] Anion gap 11 2 - 15 mmol/L FELIX Comment:Testing performed by : [address] [address] BUN 26(H) 6 - 25 mg/dL FELIX CARDONA Comment:Testing performed by : [address] [address] Creatinine 1.00 0.80 - 1.30 mg/dL FELIX CARDONA Comment:Testing performed by : [address] [address] Glucose 109 70 - 199 mg/dL FELIX Comment: Interpretive Data Fasting glucose >/= 126 mg/dl is diagnostic for diabetes. Fasting is defined as no caloric intake for at least 8 hours. Fasting glucose between 100 mg/dl to 125 mg/dl is diagnostic of prediabetes. In a patient with classic symptoms of hyperglycemia or hyperglycemic crisis, a random glucose >/= 200 mg/dl is diagnostic for diabetes. In the absence of unequivocal hyperglycemia, results should be confirmed by repeat testing. The classification and Diagnosis of Diabetes Diabetes Care 2021; 46: S19-S40. Current interpretive data was last revised 2022. Testing performed by: [address] [address] Calcium 8.4(L) 8.5 - 10.3 mg/dL FELIX Comment:Testing performed by : [address] [address] Bilirubin, total 0.8 0.1 - 1.2 mg/dL FELIX Comment:Testing performed by : [address] [address] Protein, pl 6.4(L) 6.5 - 8.5 g/dL FELIX Comment:Testing performed by : [address] [address] Albumin 3.4(L) 3.5 - 5.0 g/dL FELIX Comment:Testing performed by : [address] [address] Alk phos 153(H) 40 - 130 Units/L FELIX Comment:Testing performed by : [address] [address] ALT 28 7 - 55 Units/L FELIX Comment:Testing performed by : [address] [address] AST 42 10 - 50 Units/L FELIX Comment:Testing performed by : [address] [address] Blood 01/02/2025 3:51 PM CDT 01/02/2025 3:59 PM CDT us David Johnson MD LAB BLOOD ORDERABLES Final Resul t FELIX MH [address] [facility] Department [place] [address] from Last 3 Months Insurance [facility] Member Subscriber Plan / Payer (Ef fective 2021-Present) Name:Neisha Fish Relation to Subscriber:Self Name:Neisha Fish Payer ID:[id number] (NAIC) Type:MEDICARE RISK OTHER Address: [address] CARE [facility] Advance Directives For more information, please contact: [phone] * Full Code (Latest Code Status on File) Date Activated Date Inactivated Comments 01/03/2025 12:36 AM 01/04/2025 8:02 PM [employer] Specialist Relationship Specialty Start Date End Date Lupillo Sweet MD PCP - General Family Medicine 09/08/21 Ky Sloan MD [address] [place] [id number] Consulting Physician General Surgery 05/24/24
--- NOTE | 2025-02-12 01:26 | ECG_ITS ---
Test Date: 2025-02-12 01:39:32 Measurements Intervals [place] Rate: 76 P: 7 [place]: 144 QRS: -24 QRSD: 97 T: 16 QT: 409 QTc: 462 Interpretive Statements SINUS RHYTHM POSSIBLE ANTERIOR MYOCARDIAL INFARCTION , OF INDETERMINATE AGE [30 ms Q WAVE IN V3/V4, OR R < 0.2 mV IN V4] No previous ECG available for comparison Electronically Signed On 02-12-2025 11:42:25 CDT by Everton Knox M.D.
[2025-02-12 01:48] LABS: Hematocrit 33.8 % (42.0-52.0); Hemoglobin 10.6 g/dL (14.0-18.0); Immature Granulocyte Percent A 0.1 % (0-0.5); Lymphocytes Absolute Auto 0.60 K/mm3 (0.9-3.2); Mean Corpuscular HGB Conc 31.4 g/dl (32-36); Mean Corpuscular Hemoglobin 27.0 pg (26-34); Mean Corpuscular Volume 86.2 fl (80-100); Nucleated Red Blood Cells Absolute Auto 0.000 K/mm3 (0.0-0.012); Nucleated Red Blood Cells Perc 0.0 % (0.0-0.2); Platelet Count Result 146 k/mm3 (150-375); Red Blood Count 3.92 M/mm3 (4.6-6.20); White Blood Count 7.3 K/mm3 (4.5-10.0)
[2025-02-12 02:03] LABS: Alanine Aminotransferase 58 U/L (6-50); Albumin Level 3.4 g/dL (3.5-5.1); Alkaline Phosphatase 155 U/L (38-126); Anion Gap 6 mmol/L (4-12); Aspartate Amino Transferase 74 U/L (17-59); Bilirubin,Total 1.0 mg/dL (0.2-1.3); Blood Urea Nitrogen 32 mg/dL (9-20); Calcium 8.4 mg/dL (8.4-10.2); Carbon Dioxide 25 mmol/L (22-30); Chloride 99 mmol/L (98-107); Estimated Glomerular Filt Rate > 60; Glucose 117 mg/dL (65-110); Lipase 280 U/L (23-300); Potassium 3.3 mmol/L (3.4-5.0); Sodium 130 mmol/L (137-145); Total Protein 6.7 g/dL (6.3-8.2)
--- OUTSIDE RECORDS SUMMARY | 2025-02-12 04:12 | XMS_ITS | Clinical Summary ---
Author Organization [facility] [place] [address] Address [address] [place] [address] Care Team Providers Care Scientific Laboratory Supervisor Name Role Phone Lupillo Sweet MD Primary [...] - 01/04/2025 3:52 PM CDT Hospital Encounter [place] [address] Med Surg [address] [place] [address] David Johnson MD Sada, Kahmalia-Kalee Conceptia, MD [...] Tobacco: Former Tobacco Cessation:Counseling Given: Not Answered [facility] Utilities Answer Date Recorded In the past 12 months has [employer], gas, oil, or water company threatened to [...] often do you attend chur ch or lutheran services? Never 01/03/2025 Do you belong to any clubs o r organizations such as taoist groups, unions, fraternal or athletic groups, or [...] any time in the past 12 m [facility], were you homeless or living in a long term (including now)? No 01/03/2025 Personal Safety Answer Date Recorded Have you ever been in or are you currently in a harmful physical or emotional relationship or is someone making you feel afraid or unsafe? Denies 01/03/2025 Sex and Gender Information Value Date Recorded Sex Assigned at Not on file Legal Sex Male 4:54 PM [employer] AD[employer] Gender Identity Not on file Sexual Orientation [...] Gender: M Study Date: 01/03/2025 12:55:20 PM Logger All Round: Lyndsey Johnson RDMS,EMIT Location: [place] [address] Order Provider: DAVID JOHNSON Quality: Adequate Ref [...] 01/04/2025 Lower Extremity Venous Report Patient Name: NEISAH FISH W : 1945 (79y 10m) Gender: M Study Date: 01/03/2025 12:55:20 PM Logger All Round: Lyndsey Johnson RDMS,T Location:[place] [address] Order Provider: DAVID JOHNSON Quality: Adequate Ref [...] 8:39:37 AM CDT us David Johnson MD [facility] [place] PROCEDURES Final Result * NM MPI [...] Stefano Anton M.D. LB: SANDRO Report ID: [id number] Reading Location: [id number] Procedure Note Stefano Anton MD - 01/03/2025 [...] Stefano Anton M.D. LB: SANDRO Report ID: [id number] Reading Location: [place] [address] Nasrin Olvera NP IMG NM PROCEDURES Final Res ult * Stress Test for Myocardial Perfusion (01/03/2025 12:57 PM CDT) Anatomical Region Laterality Modality Nuclear Medicine Impressions 01/03/2025 1:06 PM CDT 1. EKG portion of the stress test is negative for ischemia. 2. Nuclear images pending. Narrative 01/03/2025 1:06 PM CDT Patient Id: Neisha Fish is a 79 y.o. male. MR#: [id number] Study date: 01/03/2025 EXAM DESCRIPTION: STRESS LEXISCAN [...] CDT Transthoracic Echocardiographic Report Patient Name: NEISHA FSIH W : 1945 (79y 10m) Gender: M Study Date: 01/03/2025 11:32:47 AM Ht(Inch): 72 Wt(Lb): 169 BSA: 1.97 Logger All Round: Jyotsna Willard RDCS Location: [place] [address] Order Provider: MALENA KING Heart Rate: 72 BMI: 22.92 BP: 119 / 67 Ref Provider: MALENA KING PROCEDURES: Echocardiographic Report: ([id number]) Transthoracic complete echo, 2D, spectral and tissue [...] [ 2.00 - 3.70 ] AI Decel Mora 2.54 m/s2 Ao Root Index 1.42 cm/m2 [...] AM Ht(Inch): 72 Wt(Lb): 169 BSA: 1.97 Logger All Round: Jyotsna Willard [facility] Location: [place] [address] Order Provider:SAMRA KING Heart Rate: 72 BMI: 22.92 BP: 119 / 67 Ref Provider:MALENA KING PROCEDURES: Echocardiographic Report: ([id number]) Transthoracic complete echo, 2D,spectral and tissue Doppler, [...] cm/m2 [ 1.00 - 2.00 ] AI [id number] ms MV E Peak Nehemias 1.36 m/s [...] was last reviewed 2021. Testing performed by: [address] [address] Blood 01/03/2025 6:07 AM CDT 01/03/2025 6:33 AM CDT Malena King MD LAB BLOOD ORDER REYNALDO Final Result Performing Organization Address [facility] Co de Phone Number [address] [place] [address] * Thyroid Function [place] (01/03/2025 6:07 AM CDT) TSH 1.64 0.30 - 4.20 mcIUnit/mL Comment:Testing performed by : [address] [address] Blood 01/03/2025 6:07 AM CDT 01/03/2025 6:33 AM CDT Malena King MD LAB BLOOD ORDER REYNALDO Final Result Performing Organization Address [facility] Co de Phone Number [place] [address] [facility] [employer] [place] [address] * (ABNORMAL) CBC without differential (01/03/2025 6:07 AM CDT) WBC 4.23 3.80 - 9.90 K/cumm Comment:Testing performed by : [address] [address] Hgb 10.3(L) 13.0 - 17.5 g/dL FELIX Comment:Testing performed by : [address] [address] Hct 32.0(L) 38.9 - 50.3 % FELIX Comment:Testing performed by : [address] [address] Plt 101(L) 150 - 400 K/cumm FELIX Comment:Testing performed by : [address] [address] MPV 10.2 9.1 - 12.3 fL FELIX Comment:Testing performed by : [address] [address] RBC 3.66(L) 4.30 - 5.80 M/cumm FELIX Comment:Testing performed by : [address] [address] MCV 87.4 81.3 - 96.4 fL FELIX Comment:Testing performed by : [address] [address] MCH 28.1 27.1 - 33.3 pg FELIX Comment:Testing performed by : [address] [address] MCHC 32.2(L) 32.3 - 35.7 g/dL FELIX Comment:Testing performed by : [address] [address] RDW CV 15.9(H) 11.1 - 14.9 % FELIX Comment:Testing performed by : [address] [address] RDW SD 50.9(H) 35.7 - 48.1 fL FELIX Comment:Testing performed by : [address] [address] NRBC abs 0.00 0.00 - 0.01 K/cumm FELIX Comment:Testing performed by : [address] [address] Blood 01/03/2025 6:07 AM CDT 01/03/2025 6:34 AM CDT Malena King MD LAB BLOOD ORDER REYNALDO Final Result FELIX [id number] [place] [address] * Hemoglobin A1c (01/03/2025 6:07 AM CDT) Hgb A1C 5.3 4.0 - 5.6 % Comment:Testing performed by : [address] [address] Estimated Average Glucose 105 mg/dL FELIX Comment: The ADA recommends reporting an estimated Average Glucose (eAG) with all Hemoglobin A1c results using the equation derived from a study of 507 normal and diabetic adults. Minority populations were underrepresented and children were not included. (Diabetes Care 31:0155-5913, 2008). The eAG is not equivalent to a fasting glucose. Testing performed by: [address] [address] Blood 01/03/2025 6:07 AM CDT 01/03/2025 6:34 AM CDT Malena King MD LAB BLOOD ORDER REYNALDO Final Result Performing Organization Address [facility] Co de Phone Number [place] [phone] [place] [address] * Lipid panel (01/03/2025 6:07 AM CDT) Pathologist [facility] Cholesterol 114 30 - 199 mg/dL Comment: [...] last revised on 2018. Testing performed by: [address] [address] Triglycerides 61 <=149 mg/dL FELIX Comment: Interpretive [...] last revised on 2018. Testing performed by: [address] [address] HDL 52 >=40 mg/dL FELIX Comment: Interpretive [...] last revised on 2018. Testing performed by: [address] [address] LDL, calculated 49 <=129 mg/dL FELIX Comment: [...] last revised on 2024. Testing performed by: [address] [address] Non-HDL Cholesterol 62 mg/dL FELIX CARDONA Comment: [...] last revised on 2018. Testing performed by: [address] [address] Chol/HDL ratio 2 FELIX Comment:Testing performed by : [address] [address] Blood 01/03/2025 6:07 AM CDT 01/03/2025 6:33 AM CDT Malena King MD LAB BLOOD ORDER REYNALDO Final Result [facility]ELIX [address] [facility] of [facility] [place], [place] [id number] * (ABNORMAL) Basic metabolic panel (01/03/2025 6:07 AM CDT) [facility] Signature Sodium 136 135 - 145 mmol/L Comment:Testing performed by : [address] [address] Potassium, pl 4.0 3.3 - 4.9 mmol/L FELIX CARDONA Comment:Testing performed by : [address] [address] Chloride 104 97 - 110 mmol/L FELIX Comment:Testing performed by : [address] [address] CO2 21(L) 22 - 32 mmol/L FELIX Comment:Testing performed by : [address] [address] Anion gap 11 2 - 15 mmol/L FELIX Comment:Testing performed by : [address] [address] BUN 22 6 - 25 mg/dL FELIX Comment:Testing performed by : [address] [address] Creatinine 0.96 0.80 - 1.30 mg/dL FELIX Comment:Testing performed by : [address] [address] Glucose 114 70 - 199 mg/dL FELIX [...] was last revised 2022. Testing performed by: [address] [address] Calcium 8.5 8.5 - 10.3 mg/dL FELIX Comment:Testing performed by : [address] [address] Blood 01/03/2025 6:07 AM CDT 01/03/2025 6:33 AM CDT us Malena King MD LAB BLOOD ORDER REYNALDO Final Result [facility]ELIX [address] [facility] [place] [address] * CT Chest PE (CTA) Abdomen Pelvis [...] patient's bilateral hip hardware. VASCULATURE: There is uslgfnxm-jj-oynlco atherosclerosis of the aorta and its pelvic [...] by Yuliana Gonzalez M.D. SN: Report ID: [id number] Reading Location: [place] [address] Procedure Note Yuliana Gonzalez MD - 01/02/2025 [...] the patient'sbilateral hip hardware. VASCULATURE: There is paiwugqw-hp-neqlsr atherosclerosis of the aorta andits pelvic branches. [...] by Yuliana Gonzalez M.D. SN: Report ID: [id number] Reading Location: [place] [address] David Johnson MD [facility] [place] CT PROCEDURES Final Result * (ABNORMAL) D-dimer, [...] on 2019. Testing performed by: [facility], [address] [place] [address]., [address] Blood 01/02/2025 8:58 PM CDT 01/02/2025 9:01 PM CDT us David Johnson MD LAB BLOOD ORDERABLES Final Resul t Performing Organization Address City/[facility] Co nc Phone Number FELIX [address] [facility] [place], [place] [id number] * ECG 12 lead (01/02/2025 7:48 PM CDT) Ventricular Rate EKG/Min 67 BPM [facility] Atrial Rate [address] [facility] NE-Interval (MSEC) [address] [facility] QRS-Interval (MSEC) [address] [facility] QT-Interval (MSEC) [address] [facility] QTc [address] [facility] P Murray [address] [facility] R Murray -[address] [facility] T Murray [address] [facility] Diagnosis Normal sinus rhythm Possible Anterior infarct , age undetermined Abnormal ECG When compared with ECG of 02-JAN-2025 18:45, No significant change Confirmed by LNEARD JESUS M.D. ([id number]) on 01/03/2025 10:43:29 PM [facility] 01/02/2025 7:48 PM CDT 01/03/2025 10:43 PM CDT us Clive Lujan NP ECG ORDERABLES Final Result Performing Organization Address [facility] Co de Phone Number [facility] * (ABNORMAL) Troponin T high-sensitivity 4-hour (01/02/2025 7:46 PM CDT) Trop T hs 33(H) <=22 ng/L Comment: Interpretive Data For further hscTnT resources including the diagnostic algorithm and an aid in interpretation, copy and paste this link: https://nrl.testcatalog.org/show/hsTrop Current Interpretive Data last revised 2020. Testing performed by: [facility], [address] [place] [address]., [address] Trop T hs delta -1 ng/L FELIX Comment:Testing performed by : [address] [address] Trop T hs interp Insignificant FELIX Comment:Testing performed by : [address] [address] Blood 01/02/2025 7:46 PM CDT 01/02/2025 7:51 PM CDT Mynor Jennings MD LAB BLOOD ORDERABLES Final R esult Performing Organization Address [facility] Co de Phone Number [facility] [address] [facility] [place] [address] * ECG 12 lead (01/02/2025 6:45 PM CDT) Ventricular Rate EKG/Min [address] [facility] Atrial Rate 68 BPM [facility] NE-Interval (MSEC) 176 ms [facility] QRS-Interval (MSEC) 84 ms [facility] QT-Interval (MSEC) 436 ms [facility] QTc 463 ms [facility] P Murray [address] [facility] R Murray [address] [facility] T Murray 22 degrees [facility] Diagnosis Normal sinus rhythm Consider anteroseptal Mi Abnormal ECG When compared with ECG of 02-JAN-2025 15:51, No significant change was found Confirmed by LENARD JESUS M.D. ([id number]) on 01/03/2025 10:41:00 PM [facility] 01/02/2025 6:45 PM CDT 01/03/2025 10:41 PM CDT us David Johnson MD ECG ORDERABLES Final Result Performing Organization Address [facility]/ZIP Co de Phone Number [facility] * (ABNORMAL) Troponin T high-sensitivity 2-hour (01/02/2025 5:51 PM CDT) Trop T hs 32(H) <=22 ng/L Comment: Interpretive Data For further hscTnT resources including the diagnostic algorithm and an aid in interpretation, copy and paste this link: https://nrl.testcatalog.org/show/hsTrop Current Interpretive Data last revised 2020. Testing performed by: [facility], [address] [place] [address]., [address] Trop T hs delta -2 ng/L FELIX Comment:Testing performed by : [facility], [address] [place] [address]., [address] Trop T hs interp Insignificant FELIX Comment:Testing performed by : [facility], [address] [place] [address]., [address] Blood 01/02/2025 5:51 PM CDT 01/02/2025 5:56 PM CDT us Mynor Jennings MD LAB BLOOD ORDERABLES Final R esult Performing Organization Address City/[facility] Co de Phone Number [facility] [address] [facility] [place] [address] * XR Chest PA Lateral [...] by Kaiden Gilman M.D. JR: Report ID: [id number] Reading Location: [place] [address] Procedure Note Kaiden Gilman MD - 01/02/2025 [...] by Kaiden Gilman M.D. JR: Report ID: [id number] Reading Location: [place] [address] us David Johnson MD IMG XR PROCEDURES Final Result * ECG 12 lead (01/02/2025 3:51 PM CDT) Ventricular Rate EKG/Min [address] [facility] Atrial Rate 67 BPM [facility] NE-Interval (MSEC) [address] [facility] QRS-Interval (MSEC) 78 ms [facility] QT-Interval (MSEC) 448 ms [facility] QTc 473 ms [facility] P Murray 37 degrees [facility] R Murray -16 degrees [facility] T Murray 15 degrees [facility] Diagnosis Normal sinus rhythm Low voltage QRS Septal infarct (cited on or before 18-MAY-2024) Abnormal ECG When compared with ECG of 18-MAY-2024 12:38, Questionable change in initial forces of Anteroseptal leads Confirmed by NIKOLAY LUCERO M.D. ([id number]) on 01/03/2025 8:20:[address] [facility] 01/02/2025 3:51 PM CDT 01/03/2025 8:20 AM CDT us David Johnson MD ECG ORDERABLES Final Result Performing Organization Address [facility]/ZIP Co de Phone Number [facility] * (ABNORMAL) Troponin T high-sensitivity series (baseline, 2hr, 4hr, 6hr) (01/02/2025 3:51 PM CDT) Trop T hs 34(H) <=22 ng/L Comment: Interpretive Data For further hscTnT resources including the diagnostic algorithm and an aid in interpretation, copy and paste this link: https://nrl.testcatalog.org/show/hsTrop Current Interpretive Data last revised 2020. Testing performed by: [facility], [address] [place] [address]., [address] Blood 01/02/2025 3:51 PM CDT 01/02/2025 3:59 PM CDT us David Johnson MD LAB BLOOD ORDERABLES Final Resul t Performing Organization Address City/[facility]/ZIP Co de Phone Number FELIX [id number] Department [place] [address] * eGFR (01/02/2025 3:51 PM CDT) eGFR [...] was last reviewed 2021. Testing performed by: [address] [address] Blood 01/02/2025 3:51 PM CDT 01/02/2025 3:59 PM CDT us David Johnson MD LAB BLOOD ORDERABLES Final Resul t [place] [id number] [facility] Department [place] [address] * (ABNORMAL) Differential, auto (01/02/2025 3:51 PM CDT) Neutrophil abs 5.14 1.50 - 6.50 K/cumm Comment:Testing performed by : [address] [address] Imm gran abs 0.01 0.00 - 0.10 K/cumm FELIX Comment:Testing performed by : [address] [address] Lymphocyte abs 0.70(L) 0.80 - 3.30 K/cumm FELIX Comment:Testing performed by : [address] [address] Monocyte abs 0.97(H) 0.20 - 0.80 K/cumm FELIX Comment:Testing performed by : [address] [address] Eosinophil abs 0.18 0.00 - 0.50 K/cumm FELIX Comment:Testing performed by : [address] [address] Basophil abs 0.04 0.00 - 0.10 K/cumm FELIX Comment:Testing performed by : [address] [address] Neutrophil pct 73.0 % FELIX Comment: Interpretive Data Percent cell count reference ranges are not reported, since discordance with absolute values may lead to misinterpretation of CBC data. Current Interpretive Data was last revised on 2017. Testing performed by: [address] [address] Imm gran pct 0.1 % [facility] [place] Comment: Interpretive Data Percent cell count reference ranges are not reported, since discordance with absolute values may lead to misinterpretation of CBC data. Current Interpretive Data was last revised on 2017. Testing performed by: [address] [address] Lymphocyte pct 9.9 % [facility] Comment: Interpretive Data Percent cell count reference ranges are not reported, since discordance with absolute values may lead to misinterpretation of CBC data. Current Interpretive Data was last revised on 2017. Testing performed by: [address] [address] Monocyte pct 13.8 % [facility] Comment: Interpretive Data Percent cell count reference ranges are not reported, since discordance with absolute values may lead to misinterpretation of CBC data. Current Interpretive Data was last revised on 2017. Testing performed by: [address] [address] Eosinophil pct 2.6 % [facility] Comment: Interpretive Data Percent cell count reference ranges are not reported, since discordance with absolute values may lead to misinterpretation of CBC data. Current Interpretive Data was last revised on 2017. Testing performed by: [address] [address] Basophil pct 0.6 % [facility] Comment: Interpretive Data Percent cell count reference ranges are not reported, since discordance with absolute values may lead to misinterpretation of CBC data. Current Interpretive Data was last revised on 2017. Testing performed by: [address] [address] Blood 01/02/2025 3:51 PM CDT 01/02/2025 3:59 PM CDT us David Johnson MD LAB BLOOD ORDERABLES Final Resul t FELIX MH [address] [facility] Department [place] [address] * Pro B-type natriuretic peptide (01/02/2025 3:51 [...] Date: 2018. Testing performed by: [facility], [address] [place] [address]., [address] Blood 01/02/2025 3:51 PM CDT 01/02/2025 3:59 PM CDT us David Johnson MD LAB BLOOD ORDERABLES Final Resul t FELIX [address] [facility] [place] [address] * (ABNORMAL) CBC with auto differential (01/02/2025 3:51 PM CDT) WBC 7.04 3.80 - 9.90 K/cumm Comment:Testing performed by : [address] [address] Hgb 10.7(L) 13.0 - 17.5 g/dL FELIX Comment:Testing performed by : [address] [address] Hct 33.1(L) 38.9 - 50.3 % FELIX Comment:Testing performed by : [address] [address] Plt 136(L) 150 - 400 K/cumm FELIX Comment:Testing performed by : [address] [address] MPV 11.1 9.1 - 12.3 fL FELIX Comment:Testing performed by : [address] [address] RBC 3.82(L) 4.30 - 5.80 M/cumm FELIX Comment:Testing performed by : [address] [address] MCV 86.6 81.3 - 96.4 fL FELIX Comment:Testing performed by : [address] [address] MCH 28.0 27.1 - 33.3 pg FELIX Comment:Testing performed by : [address] [address] MCHC 32.3 32.3 - 35.7 g/dL FELIX Comment:Testing performed by : [address] [address] RDW CV 16.0(H) 11.1 - 14.9 % FELIX CARDONA Comment:Testing performed by : [address] [address] RDW SD 50.5(H) 35.7 - 48.1 fL FELIX CARDONA Comment:Testing performed by : [address] [address] NRBC abs 0.00 0.00 - 0.01 K/cumm FELIX CARDONA Comment:Testing performed by : [address] [address] Blood 01/02/2025 3:51 PM CDT 01/02/2025 3:59 PM CDT us David Johnson MD LAB BLOOD ORDERABLES Final Resul t FELIX [id number] Department [place] [address] * (ABNORMAL) Comprehensive metabolic panel (01/02/2025 3:51 PM CDT) Sodium 137 135 - 145 mmol/L Comment:Testing performed by : [address] [address] Potassium, pl 4.4 3.3 - 4.9 mmol/L FELIX CARDONA Comment:Testing performed by : [address] [address] Chloride 103 97 - 110 mmol/L FELIX Comment:Testing performed by : [address] [address] CO2 23 22 - 32 mmol/L FELIX Comment:Testing performed by : [address] [address] Anion gap 11 2 - 15 mmol/L FELIX Comment:Testing performed by : [address] [address] BUN 26(H) 6 - 25 mg/dL FELIX CARDONA Comment:Testing performed by : [address] [address] Creatinine 1.00 0.80 - 1.30 mg/dL FELIX CRADONA Comment:Testing performed by : [address] [address] Glucose 109 70 - 199 mg/dL FELIX [...] was last revised 2022. Testing performed by: [address] [address] Calcium 8.4(L) 8.5 - 10.3 mg/dL FELIX Comment:Testing performed by : [address] [address] Bilirubin, total 0.8 0.1 - 1.2 mg/dL FELIX Comment:Testing performed by : [address] [address] Protein, pl 6.4(L) 6.5 - 8.5 g/dL FELIX Comment:Testing performed by : [address] [address] Albumin 3.4(L) 3.5 - 5.0 g/dL FELIX Comment:Testing performed by : [address] [address] Alk phos 153(H) 40 - 130 Units/L FELIX Comment:Testing performed by : [address] [address] ALT 28 7 - 55 Units/L FELIX Comment:Testing performed by : [address] [address] AST 42 10 - 50 Units/L FELIX Comment:Testing performed by : [address] [address] Blood 01/02/2025 3:51 PM CDT 01/02/2025 3:59 PM CDT us David Johnson MD LAB BLOOD ORDERABLES Final Resul t FELIX MH [address] [facility] [place] [address] from Last 3 Months Insurance HEALTH[employer] Member Subscriber Plan / Payer (Ef fective 2021-Present) Name:Neisha Fish Relation to Subscriber:Self Name:Neisha Fish Payer ID:[id number] (NAIC) Type:MEDICARE RISK OTHER Address: [address] [facility] Advance Directives For more information, please contact: [phone] * Full Code (Latest Code Status on File) Date Activated Date Inactivated Comments 01/03/2025 12:36 AM 01/04/2025 8:02 PM Care Teams Scientific Laboratory Supervisor Relationship Specialty Start Date End Date Lupillo Sweet MD PCP - General Family Medicine 09/08/21 Ky Sloan MD [address] [place] [id number] Consulting Physician General Surgery 05/24/24
--- OUTSIDE RECORDS SUMMARY | 2025-02-12 04:12 | XMS_ITS | Encounter Summary ---
Author Organization [facility] Address [address] [place] [address] Care Team Providers Care Unloading Checker Name Role Phone Lupillo Sweet MD Primary Care Provider + Encounter Details Date Type Department Care Team (Late st Contact Info) Description 12/21/2024 Lab Requisition [facility] - DermPath Lab [address] [facility] [place] [phone] Antonio Marquez MD [facility] DERMATOLOG[facility] [address] [place] [phone] Neoplasm of uncertain behavior of skin Social History Tobacco Use Types Packs/Day Years Used Date Smoking Tobacco: Former Cigarettes 30 1 982 - 2011 Smokeless Tobacco: Never Alcohol Use Standard Drinks/Week Comments No 0 (1 standard drink = 0.6 oz pur e alcohol) Sex and Gender Information Value Date Recorded Sex Assigned at Not on file 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 John Rodríguez. These tests need not be, and therefore are not, approved by the [place] Food and Drug Administration. The tests are used for clinical purposes. Billing Codes Specimen Charges Stain Charges 86741 [id number] 1 1 4:33 PM CDT DERMATOPATHOLOGY LABORATORY Embedded Images 4:33 PM CDT DERMATOPATHOLOGY LABORATORY Pathology/Cytology TISSUE SPECIMEN FROM SKIN / Unknown 12/21/2024 12/25/2024 8:04 AM CDT Miscellaneous samples (specimen) TISSUE SPECIMEN FROM SKIN / Unknown 12/21/2024 12/25/2024 8:04 AM CDT Antonio Marquez MD LAB - PATHOLOGY/CYTOLOGY AMPARO BANGURA Final Result DERMATOPATHOLOGY LABORATORY [facility] - Department of Dermatology [address], [address] [phone] documented in this encounter Visit Diagnoses Diagnosis Neoplasm of uncertain behavior of skin documented in this encounter Care Teams Unloading Checker Relationship Specialty Start Date End Date Lupillo Sweet MD [address] [address] PCP - General Family Medicine 04/20/18 documented as of this encounter
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
--- OUTSIDE RECORDS SUMMARY | 2025-02-12 04:13 | XMS_ITS | Clinical Summary ---
Author Organization [facility] Address [address], [address] [address] Phone Care Team Providers Care Engine Watchman Name Role Phone Lupillo Sweet MD Primary Care Provider + Yuliana Loja DO Unavailable [phone] Richy Montejo DO Unavailable [phone] Immunizations Immunization Administration Dates Next Due [...] topic Insurance MEDICARE C ESSENCE Care Teams Engine Watchman Relationship Specialty Start Date End Date Lupillo Sweet MD PCP - General Family Medicine 05/10/18 Yuliana Loja DO [address] [place] [id number] Internal Medicine 05/10/18 Richy Montejo DO [address] [place] [id number] Gastroenterology 05/10/18
--- OUTSIDE RECORDS SUMMARY | 2025-02-12 04:13 | XMS_ITS | Clinical Summary ---
Author Organization [facility] Address [address] [place] [id number] Care Team Providers Care Hooking Machine Operator Name Role Phone Unavailable Primary Care Provider [...] this topic Meningococcal Vaccine Aged Out No wililam jorge luis eligible based on patient's age to complete this topic RSV Immunizations Under 20 Months Aged Out No longer eligible based on patient's age to complete this topic
--- OUTSIDE RECORDS SUMMARY | 2025-02-12 04:15 | XMS_ITS | Encounter Summary ---
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 John Rodríguez. These tests need not be, and therefore are not, approved by the [place] Food and Drug Administration. The tests are used for clinical purposes. 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
--- OUTSIDE RECORDS SUMMARY | 2025-02-12 04:15 | XMS_ITS | Encounter Summary ---
Author Organization [facility] Address [address] [facility] [place] [address] Care Team Providers Care Physical Chemistry Professor Name Role Phone Lupillo Sweet MD Primary Care Provider + Encounter Details Date Type Department Care Team (Late st Contact Info) Description 05/02/2024 Lab Requisition [facility] - DermPath Lab [address] [facility] [place] [phone] Macy Marquez, CORPORATE BUYER-PEN RULER OPERATOR 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 Answer Date of Assessment Author No 04/21/2018 1:12 AM ORDER ENTRY SPECIALIST Ashly Lizama RN * Does person have difficulty doing errands alone? Answer Date of Assessment Author Yes 04/21/2018 1:12 AM ORDER ENTRY SPECIALIST Ashly Lizama RN documented as of this encounter Mental Status * Does person have difficulty concentrating/remembering/making decisions? Answer Entry Date Author No 04/21/2018 1:12 AM ORDER ENTRY SPECIALIST Ashly Lizama RN documented in this encounter Plan of Treatment Not on file documented as of this encounter Procedures Procedure Name Priority Date/Time Associated Diagnosis Comments DERMATOPATHOLOGY Routine 05/02/2024 12:0 0 AM ORDER ENTRY SPECIALIST Neoplasm of uncertain behavior of skin documented in this encounter Results * DERMATOPATHOLOGY (05/02/2024 12:00 AM ORDER ENTRY SPECIALIST) Case Report Dermatopathology Report Case: [id number] Authorizing Provider: Macy Marquez, Collected: 05/02/2024 12:00 AM CORPORATE BUYER-PEN RULER OPERATOR Ordering Location: [facility] - Received: 05/03/2024 10:19 AM DermPath Lab Pathologist: Susy Tilley MD Specimens: A) - Skin, right elbow B) - Skin, left forearm 1:09 PM [facility] DERMATOPATHOLOGY LABORATORY Final Diagnosis Specimen A. SKIN, right elbow: HYPERPLASTIC (HYPERTROPHIC) ACTINIC KERATOSIS (L57.0) BENIGN VERRUCOUS KERATOSIS (L82.1) DERMAL SCAR WITH OVERLYING EPIDERMAL NECROSIS SUGGESTIVE OF EXCORIATION (L98.499) (see microscopic description) Specimen B. SKIN, left forearm: FOLLICULITIS, SUPPURATIVE; IN ASSOCIATION WITH INTRAFOLLICULAR BACTERIA (L73.8) EPIDERMAL NECROSIS SUGGESTIVE OF EXCORIATION, IMPETIGINIZED (L98.499) (see microscopic description and comment) 4 1:09 PM [facility] DERMATOPATHOLOGY LABORATORY at 1309 ORDER ENTRY SPECIALIST Clinical History SCC 1:09 PM [facility] DERMATOPATHOLOGY LABORATORY Gross Description Specimen [...] measuring 10x8x1 mm. Jar 0. 1:09 PM [facility] DERMATOPATHOLOGY LABORATORY Microscopic Description Specimen [...] recommended if clinically indicated. 4 1:09 PM [facility] DERMATOPATHOLOGY LABORATORY Disclaimer An external and internal positive and negative controls are appropriate for the histochemical, immunohistochemical and immunofluorescence stain(s) in this case (if any), except where stated explicitly. The performance characteristics of the stain(s) cited in this report were developed and its performance characteristic determined by the Dermatopathology Laboratory at [facility], directed by Dr. John Rodríguez. These tests need not be, and therefore are not, approved by the [place] Food and Drug Administration. The tests are used for clinical purposes. Billing Codes Specimen Charges Stain Charges 31910 80966 1 1 98014 36055 13025 1 1 1 4 1:09 PM ORDER ENTRY SPECIALIST DERMATOPATHOLOGY LABORATORY Embedded Images 4 1:09 PM ORDER ENTRY SPECIALIST DERMATOPATHOLOGY LABORATORY Pathology/Cytology TISSUE SPECIMEN FROM SKIN / Unknown 05/02/2024 05/03/2024 10:19 AM ORDER ENTRY SPECIALIST Miscellaneous samples (specimen) TISSUE SPECIMEN FROM SKIN / Unknown 05/02/2024 05/03/2024 10:19 AM ORDER ENTRY SPECIALIST Macy Marquez CORPORATE BUYER-PEN RULER OPERATOR LAB - PATHOLOGY/CY TOLOGY ORDERABLES Final Result DERMATOPATHOLOGY LABORATORY [facility] - Department of Dermatology [facility] Specialized Medicine [address] [place] [address], [address] [phone] documented in this encounter Visit Diagnoses Diagnosis Neoplasm of uncertain behavior of skin documented in this encounter Care Teams Physical Chemistry Professor Relationship Specialty Start Date End Date Lupillo Sweet MD [address] [place] [id number] PCP - General Family Medicine 04/20/18 documented as of this encounter
--- OUTSIDE RECORDS SUMMARY | 2025-02-12 04:15 | XMS_ITS | Encounter Summary ---
Author Organization [facility] Address [address] [facility] [place] [address] Care Team Providers Care Oil Mixer Name Role Phone Lupillo Sweet MD Primary Care Provider + Encounter Details Date Type Department Care Team (Late st Contact Info) Description 09/28/2023 Lab Requisition [facility] - DermPath Lab [address] [facility], [place] [phone] Antonio Marquez MD [facility] DERMATOLOGY [address] [place] [phone] Squamous cell carcinoma of skin of [...] on file 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 The margin is inked green. The [...] characteristic determined by the Dermatopathology Laboratory at [facility], directed by Dr. John Rodríguez. These tests need not be, and therefore are not, approved by the [place] Food and Drug Administration. The tests are used for clinical purposes. Billing Codes Specimen Charges Stain Charges 47635 1 4 3:47 PM CDT DERMATOPATHOLOGY LABORATORY Embedded Images 4 3:47 PM CDT DERMATOPATHOLOGY LABORATORY Pathology/Cytolo gy TISSUE SPECIMEN FROM SKIN / Unknown 09/28/2023 3:33 AM CDT 09/29/2023 1:34 PM CDT Antonio Marquez MD LAB - PATHOLOGY/CYTOLOGY AMPARO BANGURA Final Result DERMATOPATHOLOGY LABORATORY [facility] - Department of Dermatology [address], [address] [phone] documented in this encounter Visit Diagnoses Diagnosis Squamous cell carcinoma of skin of right upper limb, including shoulder Squamous cell carcinoma of skin of upper limb, including shoulder documented in this encounter Care Teams Oil Mixer Relationship Specialty Start Date End Date Lupillo Sweet MD [address] [address] PCP - General Family Medicine 04/20/18 documented as of this encounter
--- OUTSIDE RECORDS SUMMARY | 2025-02-12 04:15 | XMS_ITS | Clinical Summary ---
Author Organization [facility] Address [address] [place] [address] Care Team Providers Care Electrical Engineering Draftsperson Name Role Phone Lupillo Sweet MD Primary Care Provider + Source Comments [facility] Affiliates and Associated Physician Practices is amultiple site organization consisting of ambulatory clinics and hospital sitesin [place], [place], [place] and [place]. This disclosure is being madepursuant to the Care Everywhere program and may not contain all information available regarding this patient. Last updated 18.[facility] [employer] Allergies Active Allergy Reactions Criticality Noted Date [...] [facility] - DermPath Lab [address] [facility] [place] [phone] Antonio Marquez MD Neoplasm of uncertain behavior [...] on file Legal Sex Male 11:32 AM [employer] Gender Identity Not on file Sexual Orientation Not on file Last Filed Vital Signs Vital Sign Reading Time Taken Comments Blood Pressure 145/59 04/26/2018 3:34 PM [employer] Pulse 91 04/26/2018 3:34 PM [employer] Temperature 37.1 C (98.7 F) 04/26/2018 3:34 PM [employer] Respiratory Rate 16 04/26/2018 3:34 PM [employer] Oxygen Saturation 98% 04/26/2018 3:34 PM [employer] Inhaled Oxygen Concentration 50% 04/21/2018 5 :20 PM [employer] Weight 79.4 kg (175 lb) 06/15/2018 12:45 PM [employer] Height 182.9 cm (6') 06/15/2018 12:45 PM [employer] Body Mass Index 23.73 06/15/2018 12:45 PM [employer] Plan of Treatment Health Maintenance Due Date [...] this topic Medical Devices Implanted Type Area Building Components Designer Device Identifier Shelf Expiration Date Model / Serial / Lot Nail 15mm 42cm Im Fem Tmx Versanail Unv Implanted:Qty: 1 on 04/21/2018 by Rachel Alegria MD at [facility] Left: Femur [employer] [id number] / / [id number] Wshr 12.7mm 6.5mm Set Unv Orth Ss 1mm Implanted:Qty: 2 on 04/21/2018 by Rachel Alegria MD at [facility] Left: Femur [employer] Trauma [id number] / / Screw 7mm 95mm Ft Orth Reina Ss Strl Bone Implanted:Qty: 2 on 04/21/2018 by Rachel Alegria MD at [facility] Left: Femur [employer] Trauma [id number] / / Screw 6.5mm 95mm Ft Lng Bone Sm Bone Implanted:Qty: 1 on 04/21/2018 by Rachel Alegria MD at [facility] Left: Femur [employer] Trauma [id number] / / Screw 6.5mm 70mm Ft Elliot Prox Sld Implanted:Qty: 1 on 04/21/2018 by Rachel Alegria MD at [facility] Left: Femur [employer] 1020-70 / / Screw 6.5mm 80mm Ft Fem Elliot Prox Selp Implanted:Qty: 1 on 04/21/2018 by Rachel Alegria MD at [facility] Left: Femur [employer] 1020-80 / / Screw 6.5mm 85mm Ft Elliot Prox Sld Implanted:Qty: 1 on 04/21/2018 by Rachel Alegria MD at [facility] Left: Femur [employer] [id number] / / Screw 4.5mm 46mm Ft Elliot Sld Slf-Tap Art Implanted:Qty: 1 on 04/21/2018 by Rachel Alegria MD at [facility] Left: Femur [employer] [id number] / / Screw 4.5mm 48mm Ft Elliot Sld Slf-Tap Art Implanted:Qty: 1 on 04/21/2018 by Rachel Alegria MD at [facility] Left: Femur [employer] [id number] / / Wshr Rnd Orth 12.7mm Implanted:Qty: 1 on 04/21/2018 by Rachel Alegria MD at [facility] Left: Femur [employer] [id number] / / Explanted Type Area Building Components Designer Device Identifier Shelf Expiration Date Model / Serial / Lot Pin Extfix 375mm 5mm 7mm Lng Trc 50mm Explanted:Qty: 1 on 04/21/2018 by Rachel Alegria MD at [facility] Left: Femur [employer]uma [id number] / / Screw 6.5mm 90mm Ft Elliot Prox Sld Implanted:Rachel Coleman MD (Quantity not on file) Explanted:Qty: 1 on 04/21/2018 by Rachel Alegria MD at [facility] Left: Femur [employer] [id number] / / Wire K 2mm 350mm Thrd Troc Pnt 1 End Ss Explanted:Qty: 3 on 04/21/2018 by Rachel Alegria MD at [facility] Left: Femur [employer]hew Trauma 01/17/2027 [id number] / / [id number] Procedures Procedure Name Priority Date/Time Associated Diagnosis Comments DERMATOPATHOLOGY Routine 12/21/2024 12:0 0 AM CDT Neoplasm of uncertain behavior of skin from Last 3 Months Results * DERMATOPATHOLOGY (12/21/2024 12:00 AM CDT) Case Report Dermatopathology Report Case: [id number] Authorizing Provider: Antonio Marquez MD Collected: 12/21/2024 12:00 AM Ordering Location: [facility] - Received: 12/25/2024 08:04 [...] characteristic determined by the Dermatopathology Laboratory at [facility], directed by Dr. John Rodríguez. These tests need not be, and therefore are not, approved by the [place] Food and Drug Administration. The tests are used for clinical purposes. Billing Codes Specimen Charges Stain Charges 02458 64710 1 1 5 4:33 PM CDT DERMATOPATHOLOGY LABORATORY Embedded Images 4:33 PM CDT DERMATOPATHOLOGY LABORATORY Pathology/Cytology TISSUE SPECIMEN FROM SKIN / Unknown 12/21/2024 12/25/2024 8:04 AM CDT Miscellaneous samples (specimen) TISSUE SPECIMEN FROM SKIN / Unknown 12/21/2024 12/25/2024 8:04 AM CDT Antonio Marquez MD LAB - PATHOLOGY/CYTOLOGY ORDE WILLEM Final Result DERMATOPATHOLOGY LABORATORY [facility] Department of Dermatology [facility] Medicine [address] [place] [address], [address] [phone] from Last 3 Months Insurance [facility] MEDICARE [id number] [place] [address] MEDICARE [place] MED[employer]ARE [employer] MEDICARE [facility] MEDICARE Member Subscriber Plan / Payer ( fective 2017-Present) Name:Neisha Fish Relation to Subscriber:Self Name:NEISHA FISH Payer ID:[id number] (NAIC) Type:Medicare-Managed Care Address: [facility] CLAIMS [address] [place] [facility] [place] MEDICARE Member Subscriber Plan / Payer ( fective 2017-Present) Name:Neisha Fish Relation to Subscriber:Self Name:NEISHA FISH Payer ID:[id number] (NAIC) Type:Medicare-Managed Care Address: [facility] CLAIMS [address] [place] [facility] Advance Directives * Full Code (Latest Code Status on File) Date Activated Date Inactivated Comments 04/21/2018 12:39 AM 04/26/2018 7:51 PM Care Teams Electrical Engineering Draftsperson Relationship Specialty Start Date End Date Lupillo Sweet MD [address] [address] PCP - General Family Medicine 04/20/18
--- OUTSIDE RECORDS SUMMARY | 2025-02-12 04:15 | XMS_ITS | Encounter Summary ---
Author Organization [facility] Address [address] [facility] [place] [address] Care Team Providers Care Business Dean Name Role Phone Lupillo Sweet MD Primary Care Provider + Encounter Details Date Type Department Care Team (Late st Contact Info) Description 06/03/2023 Lab Requisition [facility] - DermPath Lab [address] [facility] [place] [phone] Antonio Marquez MD [facility] DERMATOLOGY [address] [place] [phone] Neoplasm of uncertain behavior of skin Social History Tobacco Use Types Packs/Day Years Used Date Smoking Tobacco: Former Cigarettes 30 1 982 - 2011 Smokeless Tobacco: Never Alcohol Use Standard Drinks/Week Comments No 0 (1 standard drink = 0.6 oz pur e alcohol) Sex and Gender Information Value Date Recorded Sex Assigned at Not on file 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 Answer Date of Assessment Author No 04/21/2018 1:12 AM CENTRAL OFFICE TECHNICIAN Ashly Lizama RN * Does person have [...] Diagnosis Comments DERMATOPATHOLOGY Routine 06/03/2023 3:33 AM CENTRAL OFFICE TECHNICIAN Neoplasm of uncertain behavior of skin documented in this encounter Results * DERMATOPATHOLOGY (06/03/2023 3:33 AM CENTRAL OFFICE TECHNICIAN) Case Report Dermatopathology Report Case: [id number] Authorizing Provider: Antonio Marquez MD Collected: 06/03/2023 03:33 AM Ordering Location: [facility] DermPath Lab Received: 06/08/2023 06:58 AM Pathologist: Beverly Tilley MD Specimen: Skin, right upper arm 3 2:43 PM [facility] DERMATOPATHOLOGY LABORATORY Final Diagnosis Specimen A. SKIN, right upper arm: SQUAMOUS CELL CARCINOMA, KERATOACANTHOMA TYPE (C44.622) 3 2:43 PM [facility] DERMATOPATHOLOGY LABORATORY at [address] [facility] Clinical History Squamous Cell Carcinoma 3 2:43 PM [facility] DERMATOPATHOLOGY LABORATORY Gross Description Specimen A: Received is one formalin filled container labeled with the patient's name and designated right upper arm. The specimen consists of a shave biopsy measuring 10x9x3 mm. Jar 0. 3 2:43 PM [facility] DERMATOPATHOLOGY LABORATORY Microscopic Description Specimen A. SKIN, right upper arm: Sections show an endo exophytic crateriform lesion with a keratotic plug, formed by confluent follicle-like structures with relatively large keratinocytes. Additional deeper sections were obtained and reviewed. 3 2:43 PM [facility] DERMATOPATHOLOGY LABORATORY Disclaimer An external and internal positive and negative controls are appropriate for the histochemical, immunohistochemical and immunofluorescence stain(s) in this case (if any), except where stated explicitly. The performance characteristics of the stain(s) cited in this report were developed and its performance characteristic determined by the Dermatopathology Laboratory at [facility], directed by Dr. John Rodríguez. These tests need not be, and therefore are not, approved by the [place] Food and Drug Administration. The tests are used for clinical purposes. Billing Codes Specimen Charges Stain Charges 15837 1 3 2:43 PM CENTRAL OFFICE TECHNICIAN DERMATOPATHOLOGY LABORATORY Embedded Images 3 2:43 PM CENTRAL OFFICE TECHNICIAN DERMATOPATHOLOGY LABORATORY Pathology/Cytolo gy TISSUE SPECIMEN FROM SKIN / Unknown 06/03/2023 3:33 AM CENTRAL OFFICE TECHNICIAN 06/08/2023 6:58 AM CENTRAL OFFICE TECHNICIAN Antonio Marquez MD LAB - PATHOLOGY/CYTOLOGY ROMEE WILLEM Final Result DERMATOPATHOLOGY LABORATORY [facility] - Department of Dermatology [facility] Specialized Medicine [address] [place] [address], [address] [phone] documented in this encounter Visit Diagnoses Diagnosis Neoplasm of uncertain behavior of skin documented in this encounter Care Teams Business Dean Relationship Specialty Start Date End Date Lupillo Sweet MD [address] [address] PCP - General Family Medicine 04/20/18 documented as of this encounter
[2025-02-12 04:28] LABS: Add Urine Microscopic? YES; Appearance Urine Cloudy (Clear); Glucose Urine UA Negative (Negative); Leukocyte Esterase Ur 2+ LEU/UL (Negative); Nitrate Urine Negative (Negative); Specific Grav Ur 1.016 (1.001-1.035)
[2025-02-12 04:35] LABS: INR 1.2; Prothrombin Time 15.7 Seconds (11.1-14.7)
[2025-02-12] MEDS: MORPHINE SULFATE (*CRX) 4 MG/ML INJ 2 MG IV PUSH (04:35)
[2025-02-12 04:36] LABS: Partial Thromboplastin Time 36.9 Seconds (22.3-36.8)
[2025-02-12] MEDS: ONDANSETRON INJ 4 MG/2 ML VIAL IV PUSH (04:36)
[2025-02-12] MEDS: cefTRIAXone 1 GM in SODIUM CHLORIDE 0.9% IV 50 ML 100 ML IVPB (06:32)
[2025-02-12] MEDS: KCL 20 MEQ/SW 100 ML 100 ML 50 MEQ IVPB (06:45)
[2025-02-12] MEDS: SODIUM CHLORIDE 0.9% IV 500 ML 125 ML IV CONT (08:33)
== END 2025-02-12 09:23 ==
PROVIDERS: Emergency Provider Emergency Medicine; PCP Family Medicine Adolescent Medicine
DX: N39.0 Urinary tract infection, site not specified (principal); R18.8 Other ascites; R10.9 Unspecified abdominal pain; F41.9 Anxiety disorder, unspecified; F32.A Depression, unspecified; K21.9 Gastro-esophageal reflux disease without esophagitis; J43.9 Emphysema, unspecified; Z86.711 Personal history of pulmonary embolism; Z79.82 Long term (current) use of aspirin
CPT/HCPCS: 36415; 74177; 80053; 81001; 83690; 85025; 85610; 85730; 87086; 87186; 93005; 96361; 96365; 96366; 96367; 96375; 99285; J0696; J2270; J2405; J3480; J7040; Q9967